=== PATIENT | male | born 1945 | race Caucasian/White ===

== ENCOUNTER 2020-07-29 11:39 | Observation (INO) | payer OTHER ==
--- OUTSIDE RECORDS SUMMARY | 2020-07-29 12:02 | XMS REPORT | Clinical Summary ---
:1945 Author Organization [facility] Address [address] [place] [address] Care Team Providers Name Role Phone Arnol Mtz MD Primary Care Provider Allergies No Known Active Allergies Medications Medication Sig Dispensed Refills Start Date End Date Status metoprolol tartrate Take 50 mg by 0 Active (LOPRESSOR) 50 MG mouth 2 (two) tablet times a day. alfuzosin (UROXATRAL) Take 10 mg by 0 Active 10 mg 24 hr tablet mouth daily. finasteride (PROSCAR) Take 5 mg by mouth 0 Active 5 mg tablet daily. rosuvastatin (CRESTOR) Take 10 mg by 0 Active 10 MG tablet mouth daily. amLODIPine (NORVASC) Take 10 mg by 0 Active 10 MG tablet mouth daily. lidocaine 5 % cream Apply 5 % 0 Active topically daily. M-W-F Active Problems Problem Noted Date ESRD (end stage renal disease) on dialysis 11/28/2016 Hyperlipidemia 11/28/2016 Hypertension associated with chronic kidney disease du e to type 2 diabetes 08/10/2016 mellitus Surgical History Surgery Date Site/Laterality Comments DIALYSIS FISTULA CREATION RENAL BIOPSY COLON SURGERY 10/14/2009 - partial removal colon 10/13/2010 APPENDECTOMY 10/14/2009 - 10/13/2010 CHOLECYSTECTOMY 10/14/2009 - 10/13/2010 TRANSURETHRAL RESECTION OF 10/14/2013 - PROSTATE 10/13/2014 Medical History Medical History Date Comments ESRD (end stage renal disease) on dialysis (HCC) Hypertension Type 2 diabetes mellitus (HCC) Hyperlipidemia Prostate CA (HCC) 2012 Founds cancer cell, Psa low Social History Tobacco Use Types Packs/Day Years Used Date Never Smoker Sex Assigned at Date Recorded Not on file Last Filed Vital Signs Not on file Plan of Treatment Health Maintenance Due Date Last Done Comments COLONOSCOPY SCREENING 1994 SHINGLES VACCINES (#1) 1994 65+ PNEUMOCOCCAL VACCINE (1 of 1 - PPSV23) 2009 INFLUENZA VACCINE 05/14/2020 Results Not on fileafter 07/29/2019 Insurance Payer Benefit Plan / Subscriber ID Effective Dates Phone Addre ss Type Group HUMANA MEDICARE HUMANA MEDICARE [id number] 2014-Present PPO PPO/PFFS/ERS MCR NavidpedritoJohn Paul franks Transplant Self 1945 [address]) [address] [place], [place] [id number] Advance Directives For more information, please contact: [phone] Type Date Recorded Patient Field Reporter Explanati on Advance Directives, Living Will and 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
--- OUTSIDE RECORDS SUMMARY | 2020-07-29 12:02 | XMS REPORT | Clinical Summary ---
:1945 Author Organization [facility] Address [address] [place] [address] Care Team Providers Name Role Phone Pcp, No Primary Care Provider Unavailable Allergies No Known Allergies Medications Medication Sig Dispensed Refills Start Date End Date Status acetaminophen-codeine 0 11/26/2018 Active (TYLENOL #3) 300-30 mg per tablet amLODIPine (NORVASC) 10 0 12/15/2018 Active MG tablet gabapentin (NEURONTIN) 0 11/26/2018 Active 100 MG capsule metoprolol (LOPRESSOR) 2 (two) times 0 11/13/2018 Active 50 MG tablet daily. rosuvastatin (CRESTOR) 0 11/26/2018 Active 20 MG tablet tamsulosin (FLOMAX) 0.4 0 11/26/2018 Active mg Cap 24 hr capsule warfarin (COUMADIN) 2 MG 0 11/27/2018 Active tablet aspirin 81 MG EC tablet Take 81 mg by 0 Active mouth daily. Active Problems Not on file Social History Tobacco Use Types Packs/Day Years Used Date Never Smoker Smokeless Tobacco: Never Used Alcohol Use Drinks/Week oz/Week Comments No Alcohol Habits Answer Date Recorded How often do you have a drink containing alcohol? Never 12/24/2018 How many drinks containing alcohol do you have on a typical Not asked day when you are drinking? How often do you have six or more drinks on one occasion? No t asked Sex Assigned at Date Recorded Not on file Last Filed Vital Signs Not on file Plan of Treatment Not on file Results Not on fileafter 07/29/2019 Insurance Payer Benefit Plan / Subscriber ID Effective Phone Address T ype Group Dates HUMANA - HUMANA [id number] 2017-Prese Maps Contracted MEDICARE MGD MEDICARE ADV nt CARE
--- OUTSIDE RECORDS SUMMARY | 2020-07-29 12:07 | XMS REPORT | Continuity of Care Document ---
:1945 Author Organization [employer] Care Team Providers Name Role Phone [employer] Unavailable Un available Problems Problem Status Onset Classification Date Comments Sourc e Date Reported Urinary tract Sug ar infection, site not 019 9 [place] specified Retention of urine, [place] unspecified 019 9 [place] URINARY RETENTION Active [place] 019 [place] S/P AVR[place]B [place] [address] [place] [address] Abdominal distension The (gaseous) 019 9 [place] R14.[address] Nonrheumatic aortic [facility] (valve) stenosis 018 9 [facility] NONRHEUMATIC AORTIC Active [facility] (VALVE) STENOSIS 018 [facility] Age-related nuclear [facility] cataract, right eye 017 7 Age-related nuclear [facility] cataract, left eye 017 7 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 [facility] OPID [place],[facility] [place] BENIGN PROSTATIC Active [place] HYPERTROPHY WITH 015 Geremias d OBSTRU Benign prostatic Active Problem Data Medical hypertroph with 014 0 migrated Grou p, outflow obstruction from [facility] (disorder) [facility] on 03/12/15. Center,M H OPID [place],[facility] [place] Finding of frequency Active Problem Data Medical of urination (finding) 014 0 migrate d Group, from [facility] on 03/12/15. Center,M H OPID [place],[facility] [place], [place] Glycosuria (finding) Active Problem Data Medical 014 0 migrated Group, from [facility] on 03/12/15. Center,M H OPID [place],[facility] [place], [place] Microscopic hematuria Active Problem Data Medical (disorder) 014 0 migrated Group, from [facility] on 03/12/15. Center,M H OPID [place],[facility] [place] Metabolic syndrome X Active Problem Data Medical (disorder) 013 0 migrated Group, from [facility] on 03/12/15. Center,M H OPID [place],[facility] [place] Mixed hyperlipidemia Active Problem Data Medical (disorder) 013 0 migrated Group, from [facility] on 03/12/15. Center,M H OPID [place],[facility] [place] hyperlipidemia(Confirm Active Problem Sugar ed) 010 5 Land hypertension(Confirmed Active Problem Sugar ) 010 5 [place] Hypertension Active Problem Prime[facility] re 4 Med Group Hyperlipemia Active Problem [facility] 4 Med Group Chronic kidney Active Problem [facility] disease, stage III 4 M ed Group Acute ethmoidal Active Diagnosis [facility] sinusitis 3 Med Group Backache (finding) Resolved Problem M Medical 0 Group,[facility], OPID [place],[facility] [place] Benign prostatic Active Problem Medical hyperplasia (disorder) 0 Group,[facility], OPID [place],[facility] [place] Chronic back pain Active Problem Medical (disorder) 0 Group,[facility], OPID [place],[facility] [place] Chronic renal Active Problem Med ical impairment (disorder) 0 Group,[facility], OPID [place],[facility] [place], [place] Chronic kidney disease Active Problem Data Medical stage 3 (disorder) 0 migrated G rourolan, from [facility] on 03/12/15. Center,M H OPID [place],[facility] [place], [place] Diabetes mellitus type Active Problem Medical 2 (disorder) 0 Group,M [facility], OPID [place],[facility] [place], [place] Essential hypertension Active Problem Data Medical (disorder) 0 migrated Group, from [facility] on 03/12/15. Center,M H OPID [place],[facility] [place], [place] Hypertensive disorder, Active Problem Medical systemic arterial 0 Gr oup,[facility] (disorder) ,[facility] [place] [facility], OPID [place],[facility] [place], [place] Hypogonadism Active Problem Data Medi judith (disorder) 0 migrated Group, from [facility] on 03/12/15. Center,M H OPID [place],[facility] [place], [place] Hypokalemia (disorder) Active Problem Medical 0 Group,[facility], OPID [place],[facility] [place] Obesity (disorder) Active Problem Data [facility] Medical 0 migrated Group, from [facility] on 03/12/15. Center,M H OPID [place],[facility] [place], [place] Pain (finding) Active Problem [facility] dical 0 Group,[facility], OPID [place],[facility] [place], [place] Renal failure syndrome Active Problem Medical (disorder) 0 Group,[facility], OPID [place],[facility] [place], [place] Seasonal allergic Active Problem Medical rhinitis (disorder) 0 Group,[facility] [place] [facility], OPID [place],[facility] [place], [place] Swelling of lower limb Resolved Problem Medical (finding) 0 Group,[facility], OPID [place],[facility] [place] Neoplasm of colon Active Problem Medical (disorder) 0 Group,[facility], OPID [place],[facility] [place] Alteration in patterns Active Problem increas ed Medical of urinary elimination 0 frequen cy Group, (finding) [facility], OPID [place],[facility] [place] Diabetes mellitus Resolved Problem Medical (disorder) 0 Group,[facility] I ,[facility] [place], [place] End stage renal Resolved Problem [facility] edical disease (disorder) 0 G roup,[facility] ,[facility] [place] Cholesterol Active Problem OPID (substance) 5 [place], [place] Retention of urine Active Problem [facility] Medical (disorder) 0 Group, [place] Urinary tract Active Problem Med ical infectious disease 0 G roup, (disorder) Sugar Geremias d Chest pain, [facility] unspecified Medical Center 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 aorta Medical Center Other nonspecific [facility] abnormal finding of [address] [place] [address] lung field Center Umbilical hernia [facility] without obstruction or [address] [place] [address] gangrene Center Bilateral inguinal 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 [address] [place] [address] Pupillary abnormality, [facility] left eye 7 Hypercholesterolemia Active Problem [facility] (disorder) 7 Hyperlipidemia Active Problem [facility] (disorder) 7 BPH W URINARY OBS/LUTS Active [place] Medications Medication Details Route Status Patient Ordering Order Source Instructions Provider Date warfarin 5 mg 5 mg = 1 tab, Active M edical oral tablet PO, Daily, # 30 2019 Grou p tab, 0 Refill(s) Cephalexin 250 250 mg = 1 cap, Active M H Medical MG Oral Capsule PO, BID, start 2019 [place] r[place] [Keflex] the day before scope procedure, X 3 day, # 6 cap, 0 Refill(s), Pharmacy: [facility]/pharmacy #[id number] Ciprofloxacin 500 mg = 1 tab, Active [place] 500 MG Oral PO, Q24H, X 7 2019 [place] Tablet [Cipro] day, # 7 tab, 0 Refill(s) Warfarin Notes: Nurse to Inactive [place] as ensure 2019 Medical documentation Center of patient education per anticoagulation policy. Avoid large intake of vitamin-K containing foods diet. (Same As: Coumadin) WASTE: F/P - P Waste Black; E - P Waste Black DME Prescription See Active Lorna madrid Instructions, 2019 Medical MISC, ONCE, Center Cardiac Rehab Phase II Dx: S/p AVR, # 1 ea, 0 Refill(s) warfarin 2.5 mg 2.5 mg = 1 tab, Active [place] oral tablet PO, Q5PM, # 30 2019 Medic al tab, 0 Center Refill(s) Rosuvastatin 20 mg = 1 tab, Active [place] calcium 20 MG PO, Bedtime, # 2019 Med ical Oral Tablet 30 tab, 0 Center [Crestor] Refill(s) Acetaminophen 1 - 2 tab, PO, Active [place] 300 MG / Codeine Q6H, PRN Pain, 2019 Medical Phosphate 30 MG X 7 day, # 50 Ce nter Oral Tablet tab, 0 Refill(s) tamsulosin 0.4 0.4 mg = 1 cap, Active M H [place] mg oral capsule PO, Daily, # 30 2019 Medical cap, 0 Center Refill(s) atorvastatin 40 40 mg = 1 tab, Inactive [place] mg oral tablet PO, Bedtime, # 2019 Me dical 30 tab, 0 Center Refill(s) Aspirin 81 MG 81 mg = 1 tab, Active [place] Chewable Tablet PO, Daily, # 30 2019 Medical tab, 0 Center Refill(s) metoprolol 50 mg 50 mg = 1 tab, Active [place] oral tablet, PO, Q12H, # 60 2019 Medi judiht extended release tab, 0 Center Refill(s) gabapentin 100 100 mg = 1 cap, Active H [place] MG Oral Capsule PO, Q12H, # 60 2019 M edical cap, 0 Center Refill(s) gabapentin 300 300 mg, 1 cap, Inactive H [place] MG Oral Capsule Route: PO, Drug 2019 Medical form: CAP, Center Daily, Dosing Weight 116.534, kg, Start date: 11/25/18 9:00:00 SPEECH AND LANGUAGE TUTOR, Duration: 30 day, Stop date: 12/24/18 9:00:00 CDT Colchicine Notes: 0.3 mg = Inactive [place] 10/15 x 0.6 mg [facility] tab Center Warfarin Notes: Nurse to Inactive [place] as ensure 2019 Medical documentation Center of patient education per anticoagulation policy. Avoid large intake of vitamin-K containing foods diet. (Same As: Coumadin) WASTE: F/P - P Waste Black; E - P Waste Black DME Addition #1 See Active [place] Instructions, 2019 [facility] INR Center Therapeutic level: INR 2-3, # 1 ea, 0 Refill(s) metoprolol Notes: (Same No Longer [place] as extended release as: Toprol XL) Active 2019 Medical May split tab, Center but do not crush. tramadol Notes: Not to [place] Longer [place] hydrochloride 50 exceed Active 2019 Medical MG Oral Tablet 400mg/day. Center (Same As: Ultra) Warfarin Notes: Nurse to Inactive [place] as ensure 2019 Medical documentation Center of patient education per anticoagulation policy. Avoid large intake of vitamin-K containing foods diet. WASTE: F/P - P Waste Black; E - P Waste Black (Same As: Coumadin) Warfarin Notes: Nurse to Inactive [place] as ensure 2019 Medical documentation Center of patient education per anticoagulation policy. Avoid large intake of vitamin-K containing foods diet. (Same As: Coumadin) WASTE: F/P - P Waste Black; E - P Waste Black Warfarin Notes: Nurse to Inactive [place] as ensure 2019 Medical documentation Center of patient education per anticoagulation policy. Avoid large intake of vitamin-K containing foods diet. (Same As: Coumadin) WASTE: F/P - P Waste Black; E - P Waste Black colchicine 0.6 0.6 mg, 1 tab, No Longer [place] mg oral tablet Route: PO, Drug Active 2019 M edical form: TAB, BID, Center Dosing Weight 116.534, kg, Start date: 11/21/18 17:00:00 SPEECH AND LANGUAGE TUTOR, Duration: 30 day, Stop date: 12/21/18 9:00:00 CDT Acetaminophen Notes: Do not No Longer [place] 300 MG / Codeine exceed 4gm/day Active 2019 Medical Phosphate 30 MG of Center Oral Tablet acetaminophen. [Tylenol with (Same as: Codeine #3] Tylenol with Codeine # 3) Warfarin Notes: Nurse to Inactive [place] as ensure 2019 Medical documentation Center of patient education per anticoagulation policy. Avoid large intake of vitamin-K containing foods diet. (Same As: Coumadin) WASTE: F/P - P Waste Black; E - P Waste Black Bisacodyl Notes: (Same No Longer [place] As: Dulcolax, Active 2019 Medical Bisco-Lax) Center metoprolol Notes: (Same No Longer [place] as tartrate as: Lopressor) Active 2019 Medical Center AMIODarone 900 2 mg/ml. Use Inactive [place] mg in D5W 500 ml Glass Bottle or 2019 Medical IV 900 mg + Non PVC Bag Center Dextrose 5% in "Use 0.22 Water IV 482 mL micron in-line filter" MEDICATION WASTE Product Size: 900 mg Product Wasted: ___ mg Amiodarone 2 mg/ml. Inactive [place] "Recommendation 2019 Medical : Use an Center in-line filter during administration for continuous infusions to reduce the incidence of phlebitis" (Same as Codarone) MEDICATION WASTE Product Size: 150 mg Product Wasted: ___ mg Metoprolol Notes: (Same No Longer [place] as as: Lopressor) Active 2019 Medical Push over 2 Center minutes Lidocaine Notes: (Same No Longer [place] Hydrochloride 10 as: Xylocaine) Active 2019 Medical MG/ML Injectable Center Solution alfuzosin 10 mg, Route: Inactive [place] extended release PO, Daily, 2019 [facility] Dosing Weight Center 116.534, kg, Priority: NOW, Start date: 11/19/18 10:31:00 SPEECH AND LANGUAGE TUTOR, Duration: 30 day, Stop date: 12/19/18 9:00:00 SPEECH AND LANGUAGE TUTOR Fentanyl Notes: (Same Inactive Bassem as: Sublimaze) 2019 Medical Preservative Center free. Finasteride 5 mg, Route: No Longer [place] PO, Drug form: Active 2019 Medical TAB, Daily, Center Dosing Weight 116.534, kg, Start date: 11/19/18 9:00:00 SPEECH AND LANGUAGE TUTOR, Duration: 30 day, Stop date: 12/18/18 9:00:00 SPEECH AND LANGUAGE TUTOR Glucagon 1 mg, Route: No Longer Bassem IM, Drug form: Active 2019 Medical PDR/INJ, PRN, Center Dosing Weight 116.534, kg, PRN Blood Glucose Results, Start date: 11/19/18 7:58:00 SPEECH AND LANGUAGE TUTOR, Duration: 30 day, Stop date: 12/19/18 7:57:00 SPEECH AND LANGUAGE TUTOR Dextrose 50% 25 gm, 50 mL, No Longer Bassem Syringe Route: IVP, Active 2019 Medical Drug Form: INJ, Center Dosing Weight 116.534, kg, PRN, PRN Blood Glucose Results, Start date: 11/19/18 7:58:00 SPEECH AND LANGUAGE TUTOR, Duration: 30 day, Stop date: 12/19/18 7:57:00 SPEECH AND LANGUAGE TUTOR Insulin Lispro Notes: (Same No Longer Bassem as: Humalog ) Active 2019 Medical Roll in palms Center of hands gently; Do not shake `vigorously. "Single Patient Use Only " WASTE: F/P - Black; E - Municipal Trash Bin Stable for 28 days at room temperature. Expires in days from D ate heparin additive Notes: Total No Longer Bassem 25,000 unit [14 Concentration = Active 2019 Medical unit/kg/hr] + 50 unit/ ml Center Premix Diluent Total volume = Sodium Chloride 500 ml Send Med 0.45% 500 mL Request 2 hours prior to next bag Colchicine 0.6 0.6 mg, 1 tab, No Longer [place] MG Oral Tablet Route: PO, Drug Active 2018 [facility] form: TAB, BID, Center Dosing Weight 116.534, kg, Start date: 11/18/18 21:00:00 SPEECH AND LANGUAGE TUTOR, Duration: 30 day, Stop date: 12/18/18 17:00:00 SPEECH AND LANGUAGE TUTOR sennosides, [facility] Notes: (Same No Longer H [place] 8.6 MG Oral as: Senokot) Active 2019 Medical Tablet Center atorvastatin Notes: (Same No Longer [place] as: Lipitor) Active 2019 [facility] heparin sodium, Notes: porcine No Longer [place] porcine 2500 heparin Active 2019 [facility] UNT/ML Center Injectable Solution Cefazolin Notes: (Same as Inactive [place] Ancef) 2019 [facility] Simethicone Notes: (Same No Longer [place] as: Mylicon) Active 2019 [facility] Acetaminophen Notes: Max No Longer [place] acetaminophen Active 2019 Medical 4000 mg/day (4 Center gm/day). (Same as: Tylenol Extra Strength) Flomax Notes: (Same No Longer [place] As: Flomax) Active 2019 Medical "Do Not Crush" [facility] Finasteride Notes: (Same No Longer [place] as: Proscar) Active 2019 Medical "Do Not Crush" Center Women of childbearing age should not touch or handle broken tablets Oxycodone Notes: (Same No Longer [place] Hydrochloride 5 as: Roxicodone) Active 2019 Medical MG Oral Tablet Center gabapentin 100 Notes: (Same No Longer [place] MG Oral Capsule as: Neurontin) Active 2019 [facility] pantoprazole Notes: Tablet Inactive [place] should not be 2019 Medical chewed or Center crushed. (Same as: Protonix) Docusate Notes: (Same No Longer Bassem as: Colace) (Do Active 2019 Medical Not Crush) Center Miralax Notes: Dissolve No Longer [place] as in 8 oz of Active 2019 Medical water or juice. Center (Same as: Miralax) Mupirocin 0.02 1 appl, Route: No Longer [place] MG/MG Topical NASAL, BID, Active 2019 Medica l Ointment Drug form: [facility] OINT, Start date: 11/18/18 9:00:00 SPEECH AND LANGUAGE TUTOR, Duration: 5 day, Stop date: 11/22/18 17:00:00 SPEECH AND LANGUAGE TUTOR Aspirin 81 MG Notes: Do not No Longer [facility] Chewable Tablet crush or chew. Active 2018 edical (Same As: [facility] Ecotrin) tramadol Notes: [facility] 50 exceed Active 2019 Medical MG Oral Tablet 400mg/day. Center (Same As: [facility]) Oxycodone Notes: (Same Inactive [facility] Hydrochloride 5 as: Roxicodone) 2019 Medical MG Oral Tablet [facility] Notes: Infuse Inactive [facility] over 15 minutes 2019 Medical Do not exceed [facility] 4gm/day of acetaminophen MEDICATION WASTE Product Size: 1000 mg Product Wasted: ___ mg ocular lubricant Notes: (Same Inactive 11/18[facility] as: Lacri-Lube, 2019 [facility] Puralube, [facility] Duratears Naturale, Artificial Tears, and Tears Again ) [facility] or = 50 kg, Inactive Bassem Start date: 2018 Medical 11/18/18 [facility] 0:00:00 SPEECH AND LANGUAGE TUTOR, Duration: 1 day, Stop date: 11/18/18 18:00:00 SPEECH AND LANGUAGE TUTOR albumin human 5% Notes: LOT#: No Longer Bassem intravenous Active 2019 Medica l solution Mfg: Center WASTE: F/P - Red; E -Red (Same as: Albuminar) "blood product derivative" Sodium Chloride 500 mL, 500 Inactive Bassem 0.9% (Bolus) IV ml/hr, Infuse 2019 N[place] dical Over: 1 hr, [facility] Route: IV, ONCE, Priority: STAT, Dosing Weight 116.534 kg, Start date: 11/17/18 23:23:00 SPEECH AND LANGUAGE TUTOR, Stop date: 11/17/18 23:23:00 SPEECH AND LANGUAGE TUTOR chlorhexidine Notes: (Same No Longer Bassem gluconate 1.2 As: Peridex) Active 2019 Medic al MG/ML [place] [facility] Insulin regular Notes: Final No Longer [place] 100 unit + Concentration Active 2019 [facility] 1unit/1ml Center WASTE: F/P - Black; E - Municipal Trash Bin Dextrose 50% 12.5 gm, 25 mL, No Longer [place] Syringe Route: IVP, Active 2019 Medical Drug Form: INJ, Center Dosing Weight 116.534, kg, PRN, PRN Blood Glucose Results, Start date: 11/17/18 19:36:00 SPEECH AND LANGUAGE TUTOR, Duration: 30 day, Stop date: 12/17/18 19:35:00 SPEECH AND LANGUAGE TUTOR Ofirmev Notes: Infuse Inactive [facility] over 15 minutes 2019 Medical Do not exceed Center 4gm/day of acetaminophen MEDICATION WASTE Product Size: 1000 mg Product Wasted: ___ mg chlorhexidine Notes: (Same No Longer [place] gluconate 1.2 As: Peridex) Active 2019 Medic al MG/ML [place] Center chlorhexidine Notes: (Same No Longer [facility] gluconate 1.2 As: Peridex) Active 2019 Medic al MG/ML [place] Center Fentanyl Notes: (Same No Longer [facility] as: Sublimaze) Active 2019 [facility] Preservative Center free. Albuterol 0.833 Notes: (Same No Longer [place] MG/ML / as: Duoneb) Active 2019 [facility] Ipratropium Center [place] 0.167 MG/ML Inhalant Solution [DuoNeb] Magnesium Oxide 800 mg, Route: Inactive [facility] PO, PRN, Dosing 2019 Medical Weight 116.534, Center kg, PRN Abnormal Lab Result, FOR ICU USE ONLY, Start date: 11/17/18 18:26:00 SPEECH AND LANGUAGE TUTOR, Duration: 30 day, Stop date: 12/17/18 18:25:00 SPEECH AND LANGUAGE TUTOR Calcium 1 gm, Route: Inactive [facility] Gluconate IVPB, PRN, 2019 Medical Dosing Weight Center 116.534, kg, PRN Abnormal Lab Result, Start date: 11/17/18 18:26:00 SPEECH AND LANGUAGE TUTOR, Duration: 30 day, Stop date: 12/17/18 18:25:00 SPEECH AND LANGUAGE TUTOR, FOR ICU USE ONLY Calcium 500 mg, Route: Inactive [facility] Carbonate 500 MG PO, PRN, Dosing 2019 Medical Chewable Tablet Weight 116.534, Center kg, PRN Abnormal Lab Result, FOR ICU USE ONLY, Start date: 11/17/18 18:26:00 SPEECH AND LANGUAGE TUTOR, Duration: 30 day, Stop date: 12/17/18 18:25:00 SPEECH AND LANGUAGE TUTOR potassium 2 pkt, Route: Inactive 11/18[facility] [place] phosphate-sodium PO, Dosing 2019 [facility] judith phosphate 250 Weight 116.534, Ce nter mg-280 mg-160 mg kg, PRN, PRN oral powder for Abnormal Lab reconstitution Result, FOR ICU USE ONLY, Start date: 11/17/18 18:26:00 SPEECH AND LANGUAGE TUTOR, Duration: 30 day, Stop date: 12/17/18 18:25:00 SPEECH AND LANGUAGE TUTOR Magnesium 2 gm, Route: Inactive 11/18[facility] Bassem Sulfate IVPB, PRN, 2019 Medical Dosing Weight Center 116.534, kg, PRN Abnormal Lab Result, Start date: 11/17/18 18:26:00 SPEECH AND LANGUAGE TUTOR, Duration: 30 day, Stop date: 12/17/18 18:25:00 SPEECH AND LANGUAGE TUTOR, FOR ICU USE ONLY potassium 15 mmol, Route: Inactive 11/18[facility] [place] phosphate IVPB, PRN, 2019 Medical Dosing Weight Center 116.534, kg, PRN Abnormal Lab Result, Start date: 11/17/18 18:26:00 SPEECH AND LANGUAGE TUTOR, Duration: 30 day, Stop date: 12/17/18 18:25:00 SPEECH AND LANGUAGE TUTOR, FOR ICU USE ONLY sodium phosphate 15 mmol, Route: Inactive Bassem IVPB, PRN, 2019 Medical Dosing Weight Center 116.534, kg, PRN Abnormal Lab Result, Start date: 11/17/18 18:26:00 SPEECH AND LANGUAGE TUTOR, Duration: 30 day, Stop date: 12/17/18 18:25:00 SPEECH AND LANGUAGE TUTOR, FOR ICU USE ONLY Potassium 20 mEq, Route: Inactive [place] as Chloride PO, Drug form: 2019 Medical ERTAB, PRN, Center Dosing Weight 116.534, kg, PRN Abnormal Lab Result, Start date: 11/17/18 18:26:00 SPEECH AND LANGUAGE TUTOR, Duration: 30 day, Stop date: 12/17/18 18:25:00 SPEECH AND LANGUAGE TUTOR, FOR ICU USE ONLY Stimate (ANES) 4 Route: IV, Drug Inactive Bassem microgram Form: INJ, 2019 Medical Start date: Center 11/17/18 17:23:00 SPEECH AND LANGUAGE TUTOR, Stop date: 11/17/18 18:23:00 SPEECH AND LANGUAGE TUTOR protamine (ANES) Route: IV, Drug Inactive [place] 10 mg form: INJ, 2018 Medical Start date: [facility] 11/17/18 17:06:00 SPEECH AND LANGUAGE TUTOR, Stop date: 11/17/18 18:06:00 SPEECH AND LANGUAGE TUTOR calcium chloride Route: IV, Drug Inactive [place] (ANES) form: INJ, 2018 Medical ONCE, Stop Center date: 11/17/18 17:03:00 SPEECH AND LANGUAGE TUTOR heparin (ANES) Route: IV, Drug Inactive Bassem form: INJ, 2018 Medical ONCE, Stop Center date: 11/17/18 15:08:00 SPEECH AND LANGUAGE TUTOR lidocaine (ANES) Route: IV, Drug Inactive Bassem form: INJ, 2018 Medical ONCE, Stop Center date: 11/17/18 15:03:00 SPEECH AND LANGUAGE TUTOR propofol (ANES) Route: IV, Drug Inactive Bassem form: INJ, 2018 Medical ONCE, Stop Center date: 11/17/18 14:44:00 SPEECH AND LANGUAGE TUTOR fentaNYL (ANES) Route: IV, Drug Inactive Bassem form: INJ, 2018 Medical ONCE, Stop Center date: 11/17/18 14:44:00 SPEECH AND LANGUAGE TUTOR rocuronium Route: IV, Drug Inactive [place] (ANES) form: INJ, 2018 Medical ONCE, Stop Center date: 11/17/18 14:44:00 SPEECH AND LANGUAGE TUTOR midazolam (ANES) Route: IV, Drug Inactive Bassem form: SOLN, 2018 Medical ONCE, Stop Center date: 11/17/18 14:44:00 SPEECH AND LANGUAGE TUTOR ceFAZolin (ANES) Route: IV, Drug Inactive Bassem form: INJ, 2018 Medical ONCE, Stop Center date: 11/17/18 14:38:00 SPEECH AND LANGUAGE TUTOR norepinephrine Route: IV, Drug Inactive [place] (ANES) 10 form: INJ, 2018 Medical microgram Start date: [facility] 11/17/18 14:35:00 SPEECH AND LANGUAGE TUTOR, Stop date: 11/17/18 15:35:00 SPEECH AND LANGUAGE TUTOR vancomycin Route: IV, Drug Inactive [place] (ANES) 1000 mg form: INJ, 2019 Medica l Start date: [facility] 11/17/18 14:05:00 SPEECH AND LANGUAGE TUTOR, Stop date: 11/17/18 15:05:00 SPEECH AND LANGUAGE TUTOR tranexamic acid Route: IV, Drug Inactive Bassem (ANES) 10 mg form: INJ, 2019 Medical Start date: [facility] 11/17/18 14:00:00 SPEECH AND LANGUAGE TUTOR, Stop date: 11/17/18 15:00:00 SPEECH AND LANGUAGE TUTOR Exparel Notes: (Same No Longer Bassem as: Exparel) Active 2019 Medical NOT FOR IV Center use Postoperative analgesia: Infiltration (local): Dose is based on surgical site and volume required to cover the area (in general, the maximum total dose is 266 mg). Bunionectomy: 7 mL into the tissues surrounding the osteotomy and 1 mL into the subcutaneous tissue of the surgical site (total dose = 8 mL [106 mg]) Hemorrhoidectom y: 30 mL (20 mL vial diluted with 10 mL NS) divided and administered as 6 injections of 5 mL each (total dose = 30 mL [266 mg]) Lactated Ringers Route: IV, Inactive Bassem Injection IV Total Volume: 2019 Medic al (ANES) 500 mL 500, Start Center date: 11/17/18 13:40:00 SPEECH AND LANGUAGE TUTOR, Stop date: 11/17/18 14:40:00 SPEECH AND LANGUAGE TUTOR Isolyte S PH 7.4 Route: IV, Inactive Bassem (ANES) 1000 mL Total Volume: 2019 Med ical 1,000, Start Center date: 11/17/18 13:16:00 SPEECH AND LANGUAGE TUTOR, Stop date: 11/17/18 14:16:00 SPEECH AND LANGUAGE TUTOR Amylases 71740 1 cap, PO, TID, No Longer Bassem UNT / 0 Refill(s) Active 2019 Medical Endopeptidases Center 54699 UNT / Lipase 68688 UNT Delayed Release Oral Capsule [Zenpep] rifaximin 550 MG 550 mg = 1 tab, No Longer 11/14 Bassem Oral Tablet PO, BID, 0 Active 2019 Medical [XIFAXAN] Refill(s) Center Lidocaine 25 1 appl, TOP, Active Uriah as MG/ML / ONCE, # 30 gm, 2019 Medical Prilocaine 25 0 Refill(s) Center MG/ML Topical Cream Levofloxacin 250 250 mg = 1 tab, Inactive Medical MG Oral Tablet PO, Q48H, # 3 2019 [place] up [Levaquin] tab, 0 Refill(s), Pharmacy: [facility] sucroferric 500 mg = 1 tab, No Longer [place] oxyhydroxide 500 PO, 0 Refill(s) Active 2018 Medical MG Chewable Center Tablet [Velphoro] gabapentin 300 300 mg = 1 cap, No Longer [place] MG Oral Capsule PO, Daily, # 90 Active 2018 Medical cap, 0 Center Refill(s) Misc Medication 200 mL, Inactive [facility] Soln-IV, IV, 2016 Once, first dose 07/29/17 13:03:00 CDT, stop date 07/29/17 13:03:00 CDT fentaNYL 50 mcg = 1 mL, Inactive [facility] Injection, IV, 2016 Once, first dose 07/29/17 12:55:00 CDT, stop date 07/29/17 12:55:00 CDT midazolam 1 mg = 1 mL, Inactive [facility] Injection, IV, 2016 Once, first dose 07/29/17 12:55:00 CDT, stop date 07/29/17 12:55:00 CDT fentaNYL 50 mcg = 1 mL, Inactive [facility] Injection, IV, 2016 Once, first dose 07/29/17 12:44:00 CDT, stop date 07/29/17 12:44:00 CDT midazolam 1 mg = 1 mL, Inactive [facility] Injection, IV, 2016 Once, first dose 07/29/17 12:43:00 CDT, stop date 07/29/17 12:43:00 CDT ondansetron 4 mg = 2 mL, Inactive [facility] Injection, IV, 2016 Once, first dose 07/29/17 12:43:00 CDT, stop date 07/29/17 12:43:00 CDT Ethyl Chloride 1 1 sprays, Inactive [facility] ML/ML Topical [place], TOP, 2017 [place] Once, first dose 07/29/17 12:00:00 CDT, stop date 07/29/17 12:00:00 CDT Povidone-Iodine 1 drops, Soln, Inactive 07/29/ [facility] 50 MG/ML Eye-Operative, 2016 Ophthalmic Once, first Solution dose 07/29/17 [Betadine] 12:00:00 CDT, stop date 07/29/17 12:00:00 CDT LR 500 mL 500 mL, IV, 100 Inactive 07/29/ [facility] mL/hr, start 201607/29/17 11:55:00 CDT, Adult Eye Procedures or Pain Phenylephrine 1 drops, Soln, Inactive 07/29/ [facility] Hydrochloride 25 Eye-Operative, 2017 MG/ML Ophthalmic q5min, order Solution duration: 3 doses, first dose 07/29/17 11:55:00 CDT, stop date 07/29/17 12:09:00 CDT Tetracaine 1 drops, Soln, Inactive 07/29/ [facility] hydrochloride 5 Eye-Operative, 2017 MG/ML Ophthalmic q5min, order Solution duration: 3 doses, first dose 07/29/17 11:55:00 CDT, stop date 07/29/17 12:09:00 CDT moxifloxacin 5 1 drops, Soln, Inactive 07/29/ [facility] MG/ML Ophthalmic Eye-Operative, 2017 Solution q5min, order duration: 3 doses, first dose 07/29/17 11:55:00 CDT, stop date 07/29/17 12:09:00 CDT Tropicamide 10 1 drops, Soln, Inactive 07/29/ [facility] SPI MG/ML Ophthalmic Eye-Operative, 2017 Solution q5min, order duration: 3 doses, first dose 07/29/17 11:55:00 CDT, stop date 07/29/17 12:09:00 CDT NS 500 mL 500 mL, IV, 50 Inactive 07/29/ [facility] mL/hr, start 201607/29/17 11:54:00 CDT, Renal Disease Misc Medication 200 mL, Inactive 07/15/ [facility] Soln-IV, IV, 2016 Once, first dose 07/15/17 11:27:00 CDT, stop date 07/15/17 11:27:00 CDT midazolam 1 mg = 1 mL, Inactive 07/15/ [facility] Injection, IV, 2016 Once, first dose 07/15/17 11:06:00 CDT, stop date 07/15/17 11:06:00 CDT fentaNYL 50 mcg = 1 mL, Inactive 07/15/ [facility] Injection, IV, 2016 Once, first dose 07/15/17 11:06:00 CDT, stop date 07/15/17 11:06:00 CDT midazolam 1 mg = 1 mL, Inactive [facility] Injection, IV, 2016 Once, first dose 07/15/17 11:00:00 CDT, stop date 07/15/17 11:00:00 CDT fentaNYL 50 mcg = 1 mL, Inactive [facility] Injection, IV, 2016 Once, first dose 07/15/17 11:00:00 CDT, stop date 07/15/17 11:00:00 CDT ondansetron 4 mg = 2 mL, Inactive [facility] Injection, IV, 2016 Once, first dose 07/15/17 11:00:00 CDT, stop date 07/15/17 11:00:00 CDT Ethyl Chloride 1 1 sprays, Inactive [facility] ML/ML Topical [place], TOP, 2017 [place] Once, first dose 07/15/17 10:00:00 CDT, stop date 07/15/17 10:00:00 CDT Povidone-Iodine 1 drops, Soln, Inactive [facility] 50 MG/ML Eye-Operative, 2016 Ophthalmic Once, first Solution dose 07/15/17 [Betadine] 10:00:00 CDT, stop date 07/15/17 10:00:00 CDT NS 500 mL 500 mL, IV, 75 Inactive [facility] mL/hr, start 201607/15/17 9:58:00 CDT Phenylephrine 1 drops, Soln, Inactive 07/15/ [facility] Hydrochloride 25 Eye-Operative, 2017 MG/ML Ophthalmic q5min, order Solution duration: 3 doses, first dose 07/15/17 9:45:00 CDT, stop date 07/15/17 9:59:00 CDT moxifloxacin 5 1 drops, Soln, Inactive 07/15/ [facility] MG/ML Ophthalmic Eye-Operative, 2016 Solution q5min, order duration: 3 doses, first dose 07/15/17 9:45:00 CDT, stop date 07/15/17 9:59:00 CDT Tropicamide 10 1 drops, Soln, Inactive 07/15/ U SPI MG/ML Ophthalmic Eye-Operative, 2017 Solution q5min, order duration: 3 doses, first dose 07/15/17 9:45:00 CDT, stop date 07/15/17 9:59:00 CDT Tetracaine 1 drops, Soln, Inactive 07/15/ [facility] hydrochloride 5 Eye-Operative, 2017 MG/ML Ophthalmic q5min, order Solution duration: 3 doses, first dose 07/15/17 9:45:00 CDT, stop date 07/15/17 9:59:00 CDT LR 500 mL 500 mL, IV, 100 Inactive 07/15/ [facility] mL/hr, start 2017 date 07/15/17 9:44:00 CDT, Adult Eye Procedures or Pain Lidocaine joaquin, TOP, TID, Active 07/13/ [facility] Hydrochloride 0 Refill(s) 2017 0.005 MG/MG Topical Gel gabapentin 300 300 mg = 1 Active 07/13/ [facility] MG Oral Capsule caps, Oral, 2017 [Neurontin] Daily, 0 Refill(s) finasteride 5 mg 5 mg = 1 tabs, Active 07/13/ [facility] oral tablet Oral, Daily, 0 2016 Refill(s) Metoprolol 50 mg, Oral, Active 07/13/ [facility] BID, 0 2016 Refill(s) alfuzosin 10 mg 10 mg = 1 tabs, Active 07/13/ [facility] oral tablet, Oral, Daily, 0 2016 extended release Refill(s) Lovastatin 10 mg, Oral, Active 07/13/ [facility] Daily, 0 2016 Refill(s) amLODIPine 10 mg 10 mg = 1 tabs, Active 07/13/ [facility] oral tablet Oral, Daily, 0 2016 Refill(s) Ondansetron Notes: (Same Inactive Sug ar as: Shaila) 2014 MEDICATION WASTE Product Size: 4 mg Product Wasted: ___ mg Calcium Chloride 1,000 mL, Rate: Inactive Sugar 0.0014 MEQ/ML / 125 ml/hr, 2014 Potassium Infuse over: 8 Chloride 0.004 hr, Route: IV, MEQ/ML / Sodium Dosing Weight Chloride 0.103 116.091 kg, MEQ/ML / Sodium Total Volume: Lactate 0.028 1,000, Start MEQ/ML date: 08/29/15 Injectable 16:27:00, Solution Duration: 30 day, Stop date: 09/28/15 16:26:00 Labetalol Notes: (Same Inactive Sugar as: Normodyne, 2014 [facility] Trandate) Push over 2 minutes Give bolus over 2-3 minutes. Acetaminophen Notes: Infuse Inactive Sugar over 15 minutes 2014 Do not exceed 4gm/day of acetaminophen MEDICATION WASTE Product Size: 1000 mg Product Wasted: ___ mg Naloxone Notes: Same as Inactive Suga r Narcan 2014 Flumazenil Notes: (Same Inactive Suga r as: Romazicon) 2014 Fentanyl Notes: (Same Inactive Sugar as: Sublimaze) 2014 [facility] Preservative free. Ketorolac 4 days Inactive Suga r MEDICATION 2014 WASTE Product Size: 30 mg Product Wasted: ___ mg Morphine Notes: (Same Inactive Sugar as:MORPhine 2014 [facility] Sulfate) Hydromorphone Notes: (Same Inactive S ugar as: Dilaudid) 2014 Oxycodone Notes: (Same Inactive Sugar as: Roxicodone) 2014 Ciprofloxacin 250 mg = 1 tab, Active Sugar 250 MG Oral PO, Q24H, # 7 2014 Tablet [Cipro] tab, 0 Refill(s) tramadol 1 - 2 tabs, PO, Active Suga r hydrochloride 50 Q4-6H, PRN Pain 2014 [place] MG Oral Tablet Score 6-10, X 4 [Ultram] day, # 30 tab, 0 Refill(s) Docusate Sodium 100 mg = 1 cap, Active Sugar 100 MG Oral PO, BID, PRN 2014 Capsule [Colace] Constipation, # 60 cap, 0 Refill(s) Acetaminophen Notes: (Same Inactive S ugar 325 MG / as: [place] 2014 Hydrocodone 325/5) Do not Bitartrate 5 MG exceed 4gm/day Oral Tablet of acetaminophen. Morphine Notes: (Same Inactive Sugar as:MORPhine 2014 Sulfate) Calcium Chloride 1,000 mL, Rate: Inactive Sugar 0.0014 MEQ/ML / 25 ml/hr, 2014 Potassium Infuse over: 40 Chloride 0.004 hr, Route: IV, MEQ/ML / Sodium Dosing Weight Chloride 0.103 118.182 kg, MEQ/ML / Sodium Total Volume: Lactate 0.028 1,000, Start MEQ/ML date: 08/29/15 Injectable 12:54:00, Solution Duration: 30 day, Stop date: 09/28/15 12:53:00 BD Normal Saline Notes: (Same Inactive H Sugar Flush as: BD 2014 Posiflush) Cipro Notes: Do not Inactive Sugar refrigerate 2014 168 HR Clonidine 1 patch, TOP, 0 Active Sugar 0.76522 MG/HR Refill(s) 2014 Transdermal Patch Crestor PO, Bedtime, 0 Active Sugar Refill(s) 2014 ALFUZOSIN ER ALFUZOSIN ER No Longer S ugar 10MG TAB 10MG TAB, 1 Active 2014 [facility] tab, Drug form: MISC, Route: PO, QPM, 11/09/14 18:00:00, Duration: 30 day, Stop date: 12/09/14 17:00:00 pneumococcal 0.5 ml, Route: Inactive Sugar capsular IM, ONCALL, 2014 polysaccharide Start date: type 1 vaccine / 11/09/14 pneumococcal 9:52:57, Stop capsular date: 12/09/14 polysaccharide 9:47:57 type 10A vaccine / pneumococcal capsular polysaccharide type 11A vaccine / pneumococcal capsular polysaccharide type 12F vaccine / pneumococcal capsular polysacchar Januvia 100 mg, Route: No Longer Suga r PO, Drug form: Active 2014 [place] TAB, Daily, Dosing Weight 124.318, kg, Start date: 11/09/14 9:00:00, Duration: 30 day, Stop date: 12/08/14 9:00:00 Livalo 4 mg, Route: No Longer Sugar PO, Drug form: Active 2014 [place] TAB, Daily, Dosing Weight 124.318, kg, Start date: 11/09/14 9:00:00, Duration: 30 day, Stop date: 12/08/14 9:00:00 Prinivil Notes: (Same No Longer Sugar as: Prinivil, Active 2014 Zestril) Avodart Notes: No Longer Sugar Non-Formulary Active 2014 Drug. (Same As: Avodart) (Do Not Crush) benazepril 40 mg, Route: No Longer Lanza gar PO, Drug form: Active 2014 TAB, Daily, Dosing Weight 124.318, kg, Start date: 11/09/14 9:00:00, Duration: 30 day, Stop date: 12/08/14 9:00:00 Amlodipine Notes: (Same No Longer Sug ar as: Norvasc) Active 2014 alfuzosin 10 mg, Route: Inactive Suga r PO, Drug form: 2014 ERTAB, Daily, Dosing Weight 124.318, kg, Start date: 11/09/14 9:00:00, Duration: 30 day, Stop date: 12/08/14 9:00:00 Losartan Notes: (Same No Longer Sugar as: Cozaar) Active 2014 metoprolol Notes: (Same No Longer Sug ar extended release as: Toprol XL) Active 2014 May split tab, but do not crush. Ciprofloxacin 250 mg = 1 tab, Active Sugar 250 MG Oral PO, Q12H, # 6 2014 Tablet [Cipro] tab, 0 Refill(s) Phenazopyridine 200 mg = 1 tab, Active Sugar hydrochloride PO, TID, # 9 2014 [place] 200 MG Oral tab, 0 Tablet Refill(s) [Pyridium] Docusate Sodium 100 mg = 1 cap, Active Sugar 100 MG Oral PO, BID, 2014 Capsule [Colace] Constipation, # 20 cap, 0 Refill(s) tramadol 1 - 2 tabs, PO, Active Suga r hydrochloride 50 Q4-6H, as 2014 [place] MG Oral Tablet needed for [Ultram] pain, # 30 tab, 0 Refill(s) Labetalol Notes: (Same No Longer Suga r as: Normodyne, Active 2014 Trandate) Push over 2 minutes Give bolus over 2-3 minutes. Hydralazine Notes: (Same No Longer Lanza gar as: Apresoline) Active 2014 [place] Push over 5 minutes Famotidine Notes: (Same No Longer Sug ar as: Pepcid) Active 2014 [place] Ciprofloxacin 10 Notes: Do not Inactive Sugar MG/ML Injectable refrigerate 2014 Geremias d Solution Pravachol Notes: (Same No Longer Suga r as: Pravachol) Active 2014 [place] Docusate Sodium Notes: (Same No Longer H Sugar 100 MG Oral as: Colace) (Do Active 2014 Capsule Not Crush) Glipizide 5 MG Notes: (Same Inactive Sugar Oral Tablet as: Glucotrol) 2014 30 min before meals. montelukast Notes: (Same No Longer Lanza gar as:Singulair) Active 2014 10 ML Cefazolin Notes: (Same Inactive Sugar 100 MG/ML As: Ancef, 2014 Prefilled Kefzol) Syringe Insulin, Aspart, Notes: Roll in No Longer Sugar Human palms of hands Active 2014 gently; Do not shake vigorously. (Same as: NovoLOG) "single patient use only" Stable for 28 days at room temperature. Expires in days from D ate Dextrose 50% 25 gm, 50 mL, No Longer Sugar Syringe Route: IVP, Active 2014 Drug Form: INJ, Dosing Weight 124.318, kg, PRN, PRN Blood Glucose Results, Start date: 11/08/14 15:45:00, Duration: 30 day, Stop date: 12/08/14 15:44:00 Glucagon 1 mg, Route: No Longer Sugar IM, Drug form: Active 2014 PDR/INJ, PRN, Dosing Weight 124.318, kg, PRN Blood Glucose Results, Start date: 11/08/14 15:45:00, Duration: 30 day, Stop date: 12/08/14 15:44:00 Aspirin 81 MG 81 mg = 1 tab, No Longer H Sugar Enteric Coated PO, Daily, # 0 Active 2014 [place] Tablet tab, 0 Refill(s) amLODIPine 10 mg 10 mg = 1 tab, Active Sugar oral tablet PO, Daily, # 30 2014 [place] tab, 0 Refill(s) montelukast 10 10 mg = 1 tab, Active Sugar mg oral tablet PO, Bedtime, # 2014 [place] 30 tab, 0 Refill(s) benazepril 40 mg 40 mg = 1 tab, Active Sugar oral tablet PO, Daily, # 30 2014 [place] tab, 0 Refill(s) alfuzosin 10 mg 10 mg = 1 tab, Active H Sugar oral tablet, PO, Daily, # 30 2014 Geremias d extended release tab, 0 Refill(s) metoprolol 50 mg = 1 tab, Active Sug ar tartrate 50 mg PO, Daily, # 2014 [place] oral tablet 180 tab, 0 Refill(s) sitagliptin 100 100 mg = 1 tab, Active Sugar MG Oral Tablet PO, Daily, # 30 2014 L and [Januvia] tab, 0 Refill(s) losartan 100 mg 100 mg = 1 tab, Active Sugar oral tablet PO, Daily, # 30 2014 [place] tab, 0 Refill(s) Glipizide 5 MG 5 mg = 1 tab, Active Sugar Oral Tablet PO, BID, # 30 2014 [place] tab, 0 Refill(s) pitavastatin 4 4 mg = 1 tab, Active Sugar MG Oral Tablet PO, Daily, 0 2014 [place] [Livalo] Refill(s) Dutasteride 0.5 0.5 mg = 1 cap, Active Sugar MG Oral Capsule PO, Daily, # 30 2014 [place] [Avodart] cap, 0 Refill(s) Irrigation w/ Notes: For No Longer Lanza gar Normal Saline irrigation Active 2014 only. Flumazenil Notes: (Same Inactive Suga r as: Romazicon) 2014 Naloxone Notes: Same as Inactive Suga r Narcan 2014 Ondansetron Notes: (Same Inactive Sug ar as: Zofran) 2014 Dexamethasone Notes: Inactive Sugar Concentration: 2014 4mg/ml Calcium Chloride 1,000 mL, Rate: Inactive Sugar 0.0014 MEQ/ML / 125 ml/hr, 2014 Potassium Infuse over: 8 Chloride 0.004 hr, Route: IV, MEQ/ML / Sodium Dosing Weight Chloride 0.103 124.318 kg, MEQ/ML / Sodium Total Volume: Lactate 0.028 1,000, Start MEQ/ML date: 11/08/14 Injectable 11:35:00, Solution Duration: 1 doses or times, Stop date: 11/09/14 3:34:00 Morphine Notes: (Same Inactive Sugar as:MORPhine 2014 Sulfate) Meperidine Notes: (Same Inactive Suga r as: Demerol) 2014 "Use Precaution in Elderly, Seizure disorders, and Renal impairment&quot ; Acetaminophen Notes: Infuse Inactive Sugar over 15 minutes 2014 Do not exceed 4gm/day of acetaminophen Metoprolol Notes: (Same Inactive Suga r as: Lopressor) 2014 Push over 2 minutes Oxycodone Notes: (Same Inactive Sugar as: Roxicodone) 2014 Labetalol Notes: (Same Inactive Sugar as: Normodyne, 2014 Trandate) Push over 2 minutes Give bolus over 2-3 minutes. Dulcolax Notes: (Same No Longer Sugar Laxative As: Dulcolax, Active 2014 Correctol) (Do Not Crush) "Do Not Crush" Diphenhydramine 25 mg, 1 tab, No Longer Sugar Route: PO, Drug Active 2014 form: TAB, Bedtime, Dosing Weight 124.318, kg, PRN Insomnia, Start date: 11/08/14 11:04:00, Duration: 30 day, Stop date: 12/08/14 11:03:00 Promethazine Notes: Do not No Longer Sugar give IV push. Active 2014 [place] (Same as: Phenergan) Ondansetron Notes: (Same No Longer Lanza gar as: Zofran) Active 2014 Morphine Notes: (Same No Longer Sugar as:MORPhine Active 2014 Sulfate) acetaminophen-co Notes: Do not No Longer Sugar deine #3 exceed 4gm/day Active 2014 [place] of acetaminophen. (Same as: Tylenol with Codeine # 3) Calcium Chloride 1,000 mL, Rate: No Longer 11/08 Sugar 0.0014 MEQ/ML / 125 ml/hr, Active 2014 [facility] Potassium Infuse over: 8 Chloride 0.004 hr, Route: IV, MEQ/ML / Sodium Dosing Weight Chloride 0.103 124.318 kg, MEQ/ML / Sodium Total Volume: Lactate 0.028 1,000, Start MEQ/ML date: 11/08/14 Injectable 11:04:00, Solution Duration: 30 day, Stop date: 12/08/14 11:03:00 Ciprofloxacin 2 400 mg, Route: Inactive Sugar MG/ML Injectable IVPB, [id number], 2014 Solution [Cipro] Dosing Weight 127.136, kg, Start date: 11/08/14 8:00:00, Duration: 30 day, Stop date: 12/07/14 20:00:00 Calcium Chloride 1,000 mL, Rate: Inactive Sugar 0.0014 MEQ/ML / 25 ml/hr, 2014 Potassium Infuse over: 40 Chloride 0.004 hr, Route: IV, MEQ/ML / Sodium Dosing Weight Chloride 0.103 127.136 kg, MEQ/ML / Sodium Total Volume: Lactate 0.028 1,000, Start MEQ/ML date: 11/08/14 Injectable 7:46:00, Solution Duration: 1 doses or times, Stop date: 11/09/14 23:45:00 Levaquin Notes: (Same No Longer Sugar as:Levaquin) Active 2014 [place] BD Posiflush SF Notes: (Same No Longer H Sugar as: BD Active 2014 [facility] Posiflush) alfuzosin 10 mg 10 mg = 1 tab, No Longer Sugar oral tablet, PO, Daily, # 30 Active 2014 Geremias d extended release tab, 0 Refill(s) montelukast 10 10 mg = 1 tab, No Longer Sugar mg oral tablet PO, QPM, 0 Active 2014 [facility] Refill(s) metoprolol 50 mg = 1 tab, No Longer S ugar tartrate 50 mg PO, Daily, 0 Active 2014 [place] oral tablet Refill(s) Dutasteride 0.5 0.5 mg = 1 cap, No Longer Sugar MG Oral Capsule PO, Daily, # 30 Active 2014 [place] [Avodart] cap, 0 Refill(s) pitavastatin 4 4 mg = 1 tab, No Longer H Sugar MG Oral Tablet PO, Daily, 0 Active 2014 [place] [Livalo] Refill(s) Glipizide 5 MG 5 mg = 1 tab, No Longer H Sugar Oral Tablet PO, BID, # 30 Active 2014 [place] tab, 0 Refill(s) sitagliptin 100 100 mg = 1 tab, No Longer Sugar MG Oral Tablet PO, Daily, # 30 Active 2014 L and [Januvia] tab, 0 Refill(s) losartan 100 mg 100 mg = 1 tab, No Longer Sugar oral tablet PO, Daily, # 30 Active 2014 [place] tab, 0 Refill(s) Pravastatin 1 tab(s) orally Active 20 mg orally CHRYSTAL 05/12/ [facility] are Sodium once a day 2012 Med Group (at bedtime) losartan 1 tab(s) orally Active 100 mg orally CHRYSTAL 10/30/ [facility] once a day 2011 Med Group Livalo 1 tab(s) orally No Longer 2 mg orally CHRYSTAL 10/30/ [facility] Active once a day 2011 Med Group amlodipine 1 tab(s) orally Active 10 mg orally CHRYSTAL [facility] once a day Med Group spironolactone 1 tab(s) orally Active 50 mg orally CHRYSTAL Betzaida [facility] daily Med Group benazepril 1 tab(s) orally Active 40 mg orally CHRYSTAL [facility] once a day Med Group metoprolol 1 tab(s) orally Active 50 mg orally CHRYSTAL [facility] once a day Med Group Aspir 81 1 tab(s) orally Active 81 mg orally CHRYSTAL [facility] once a day Med Group Allergies, Adverse Reactions, Alerts Substance Category Reaction Severity Reaction Status Date Comments S ource type Reported No Known Assertion Drug Medication allergy Medic al Allergies Group Immunizations Immunization Date Site Status Last Comments Source Given Updated pneumococcal Right completed [place] [facility] 23-valent 5 deltoid Group, vaccine [facility] [place], [facility] [place],[facility], [facility] Depo-medrol 80mg completed Betzaida [facility] Med 3 Group pneumococcal Left completed [place] [facility] 23-valent 0 deltoid Group, vaccine [facility] [place], [facility] [place],[facility] [place], [place] Results Order Name Results Value Reference Date Interpretation Comments Penny rce Range URINE AND UA Color Yellow Yellow 09/03 Sugar STOOL *NA* [place] (09/02/19 9:02 PM) URINE AND UA Turbidity Slight Clear 09/03 Sugar STOOL *ABN* [facility] (09/02/19 9:02 PM) URINE AND UA Spec Grav 1.011 <=1.030 09/03 Sugar STOOL [place] URINE AND UA pH 8.0 5.0 - 8.0 09/03 Sugar STOOL [place] URINE AND UA Protein >=300 Negative 09/03 Sugar STOOL mg/dL mg/dL [place] URINE AND UA Glucose 500 mg/dL Negative 09/03 Sugar STOOL mg/dL [place] URINE AND UA Ketones Negative Negative 09/03 Sugar STOOL *NA* /2018 [facility] (09/02/19 9:02 PM) URINE AND UA Bili Negative Negative 09/03 Sugar STOOL *NA* [facility] (09/02/19 9:02 PM) URINE AND UA Blood Small Negative 09/03 Sugar STOOL *ABN* [facility] (09/02/19 9:02 PM) URINE AND UA <=1.0 0.1 - 1.0 09/03 Sugar STOOL Urobilinogen mg/dL /2018 [facility] URINE AND UA Nitrite Negative Negative 09/03 Sugar STOOL (09/02/19 9:02 PM) [place] URINE AND UA Leuk Est Moderate Negative 09/03 Sugar STOOL *ABN* [place] (09/02/19 9:02 PM) URINE AND UA Sq Epi None Seen Few 09/03 Sugar STOOL (09/02/19 9:02 PM) [place] URINE AND UA WBC 107 0 - 5 09/03 Sugar STOOL [place] URINE AND UA RBC 10 0 - 2 09/03 Sugar STOOL Land URINE AND UA Bacteria Occasional None Seen 09/03 Lanza gar STOOL /HPF /HPF /2018 [place] Culture: 10,000 - 50,000 CFU/mL Staphylococcus Species, No t S. aureus 09/03 Sugar Urine If Identification Or Sensitivity Required, [facility] Microbiology At [phone] Within 48 Hours. CHEM PANEL Magnesium Lvl 2.5 1.8 - 2.4 11/25 [facility] CHEM PANEL Phosphorus 6.1 2.5 - 4.5 11/25 [facility]2018 [facility] ELECTROLYTE AGAP 13.9 10.0 - 11/25 [facility] S 20.0 [facility] ELECTROLYTE eGFR 7 11/25 Result [facility] Comment: The Medical eGFR is Center calculated using the CKD-EPI formula. In most young, healthy individuals the eGFR will be >90 mL/min/1.73m2 . The eGFR declines with age. An eGFR of 60-89 may be normal in some populations, particularly the elderly, for whom the CKD-EPI formula has not been extensively validated. Use of the eGFR is not recommended in the following populations:< br/>
Shyla viduals with unstable creatinine concentration s, including patients and those with serious co-morbid conditions.<b r/>
Patie nts with extremes in muscle mass or diet.

The data above are obtained from the National Kidney Disease Education Program (NKDEP) which additionally recommends that when the eGFR is used in patients with extremes of body mass index for purposes of drug dosing, the eGFR should be multiplied by the estimated BMI. ELECTROLYTE Potassium Lvl 3.9 3.5 - 5.1 11/25 [place] [facility] ELECTROLYTE Calcium Lvl 9.4 8.5 - 10.5 11/25 [facility] ELECTROLYTE Glucose Lvl 98 70 - 99 11/25 [facility]2018 [facility] ELECTROLYTE Chloride Lvl 100 95 - 109 11/25 [facility] [facility] ELECTROLYTE CO2 29 24 - 32 11/25 [facility]2018 [facility] ELECTROLYTE Sodium Lvl 139 135 - 145 11/25 [facility]2018 [facility] ELECTROLYTE Creatinine 6.85 0.50 - 11/25 [facility] S Lvl 1.40 [facility] ELECTROLYTE BUN 50 7 - 22 11/25 [facility]2018 [facility] HEMATOLOGY PTT 61.4 22.9 - 11/25 [place] 35.8 [facility] HEMATOLOGY INR 2.69 0.85 - 02/12 [place] 1.17 /2018 [facility] HEMATOLOGY PT 28.0 12.0 - 11/25 14.7 2019 [facility] HEMATOLOGY Basophils # 0.1 0.0 - 0.2 11/25 [facility] s [facility] HEMATOLOGY Eosinophils # 0.7 0.0 - 0.5 11/25 [facility] xa [facility] HEMATOLOGY Monocytes # 0.9 0.0 - 0.8 11/25 [facility] HEMATOLOGY Lymphocytes # 1.9 1.0 - 5.5 11/25 [facility] xa [facility] HEMATOLOGY Neutrophils # 7.3 1.5 - 8.1 11/25 [facility] xa [facility] HEMATOLOGY Eosinophils 6.0 0.0 - 4.0 11/25 [facility] HEMATOLOGY Monocytes 8.5 2.0 - 12.0 11/25 [facility] HEMATOLOGY Basophils 0.8 0.0 - 1.0 11/25 [facility] HEMATOLOGY Segs 67.0 45.0 - 11/25 [place] 75.0 2019 [facility] HEMATOLOGY Lymphocytes 17.7 20.0 - 11/25 [place] 40.0 2019 [facility] HEMATOLOGY WBC 11.0 3.7 - 10.4 11/25 [facility] HEMATOLOGY RBC 2.69 4.70 - 11/25 [place] 6.10 2019 [facility] HEMATOLOGY Hct 25.0 42.0 - 11/25 [place] 54.0 2019 [facility] HEMATOLOGY Hgb 8.4 14.0 - 11/25 [place] 18.0 2019 [facility] HEMATOLOGY MCH 31.4 27.0 - 02 [place] 31.0 2019 [facility] HEMATOLOGY MCV 93.0 80.0 - 11/25 [place] 94.0 2019 [facility] HEMATOLOGY MPV 9.2 7.4 - 10.4 11/25 [facility] HEMATOLOGY Platelet 193 133 - 450 11/25 [facility] HEMATOLOGY RDW 15.4 11.5 - 11/25 [place] 14.5 2019 [facility] HEMATOLOGY MCHC 33.7 32.0 - 02 [place] 36.0 2019 [facility] CHEM PANEL Phosphorus 6.7 2.5 - 4.5 11/24 [facility]2018 [facility] CHEM PANEL Magnesium Lvl 2.6 1.8 - 2.4 11/24 [facility] CHEM PANEL eGFR 6 11/24 Result Comment: The Medical eGFR is Center calculated using the CKD-EPI formula. In most young, healthy individuals the eGFR will be >90 mL/min/1.73m2 . The eGFR declines with age. An eGFR of 60-89 may be normal in some populations, particularly the elderly, for whom the CKD-EPI formula has not been extensively validated. Use of the eGFR is not recommended in the following populations:< br/>
Shyla viduals with unstable creatinine concentration s, including patients and those with serious co-morbid conditions.<b r/>
Patie nts with extremes in muscle mass or diet.

The data above are obtained from the National Kidney Disease Education Program (NKDEP) which additionally recommends that when the eGFR is used in patients with extremes of body mass index for purposes of drug dosing, the eGFR should be multiplied by the estimated BMI. CHEM PANEL CO2 28 24 - 32 11/[address] CHEM PANEL Calcium Lvl 9.6 8.5 - 10.5 11/24 [facility] CHEM PANEL BUN 57 7 - 22 11/[address] CHEM PANEL Creatinine 7.59 0.50 - 11/24 [facility] Lvl 1.40 [facility] CHEM PANEL Sodium Lvl 136 135 - 145 11/[address] CHEM PANEL Potassium Lvl 5.3 3.5 - 5.1 11/24 [facility]2018 [facility] CHEM PANEL Chloride Lvl 98 95 - 109 11/24 [facility] 2018 [facility] CHEM PANEL Glucose Lvl 103 70 - 99 11/[address] CHEM PANEL AGAP 15.3 10.0 - 11/24 [place] 20.0 [facility] HEMATOLOGY Lymphocytes # 2.3 1.0 - 5.5 11/24 [facility]2018 [facility] HEMATOLOGY Eosinophils 7.0 0.0 - 4.0 11/24 [facility]2018 [facility] HEMATOLOGY Neutrophils # 5.7 1.5 - 8.1 11/24 [facility]2018 [facility] HEMATOLOGY Monocytes # 0.9 0.0 - 0.8 11/24 [facility] HEMATOLOGY Basophils # 0.1 0.0 - 0.2 11/24 [place] [facility] HEMATOLOGY Eosinophils # 0.7 0.0 - 0.5 11/24 [place]2018 [facility] HEMATOLOGY Lymphocytes 23.6 20.0 - 11/24 [place] 40.0 /2019 [facility] HEMATOLOGY Segs 59.3 45.0 - 11/24 [place] 75.0 /2019 [facility] HEMATOLOGY Monocytes 9.2 2.0 - 12.0 11/24 [facility] HEMATOLOGY Basophils 0.9 0.0 - 1.0 11/24 [facility] HEMATOLOGY MCV 93.1 80.0 - 11/24 [place] 94.0 /2019 [facility] HEMATOLOGY MCHC 34.3 32.0 - 11/24 [place] 36.0 2019 [facility] HEMATOLOGY RDW 15.5 11.5 - 11/24 [place] 14.5 /2019 [facility] HEMATOLOGY Platelet 175 133 - 450 11/24 [facility] HEMATOLOGY WBC 9.7 3.7 - 10.4 11/24 [facility] HEMATOLOGY MCH 32.0 27.0 - 11/24 [place] 31.0 2019 [facility] HEMATOLOGY RBC 2.72 4.70 - 11/24 [place] 6.10 2019 [facility] HEMATOLOGY Hgb 8.7 14.0 - 11/24 [place] 18.0 2019 [facility] HEMATOLOGY Hct 25.3 42.0 - 11/24 [place] 54.0 /2019 [facility] HEMATOLOGY MPV 9.8 7.4 - 10.4 11/24 [facility] HEMATOLOGY INR 2.31 0.85 - 11/24 [place] 1.17 2019 [facility] HEMATOLOGY PTT 79.5 22.9 - 11/24 [place] 35.8 /2019 [facility] HEMATOLOGY PT 24.9 12.0 - 11/24 [place] 14.7 2019 [facility] CHEM PANEL eGFR 9 11/23 Result Comment: The Medical eGFR is Center calculated using the CKD-EPI formula. In most young, healthy individuals the eGFR will be >90 mL/min/1.73m2 . The eGFR declines with age. An eGFR of 60-89 may be normal in some populations, particularly the elderly, for whom the CKD-EPI formula has not been extensively validated. Use of the eGFR is not recommended in the following populations:< br/>
Shyla viduals with unstable creatinine concentration s, including patients and those with serious co-morbid conditions.<b r/>
Patie nts with extremes in muscle mass or diet.

The data above are obtained from the National Kidney Disease Education Program (NKDEP) which additionally recommends that when the eGFR is used in patients with extremes of body mass index for purposes of drug dosing, the eGFR should be multiplied by the estimated BMI. CHEM PANEL BUN 39 7 - 22 11/23 [facility] CHEM PANEL Creatinine 5.64 0.50 - 11/23 [facility] Lvl 1.40 [facility] CHEM PANEL Glucose Lvl 115 70 - 99 11/23 [facility]2018 [facility] CHEM PANEL Sodium Lvl 140 135 - 145 11/23 [facility]2018 [facility] CHEM PANEL Calcium Lvl 9.4 8.5 - 10.5 11/23 [place] [facility] CHEM PANEL Chloride Lvl 100 95 - 109 11/23 [place] [facility] CHEM PANEL AGAP 13.7 10.0 - 11/23 [place] 20.0 [facility] CHEM PANEL Potassium Lvl 3.7 3.5 - 5.1 11/23 [place] [facility] CHEM PANEL CO2 30 24 - 32 11/23 2018 [facility] HEMATOLOGY MCV 93.6 80.0 - 11/23 [place] 94.0 [facility] HEMATOLOGY Hct 25.3 42.0 - 11/23 [place] 54.0 [facility] HEMATOLOGY MCHC 34.7 32.0 - 11/23 [place] 36.0 [facility] HEMATOLOGY RDW 15.7 11.5 - 11/23 [place] 14.5 [facility] HEMATOLOGY Platelet 165 133 - 450 11/23 2018 [facility] HEMATOLOGY MCH 32.5 27.0 - 02 [place] 31.0 [facility] HEMATOLOGY RBC 2.70 4.70 - 11/23 [place] 6.10 [facility] HEMATOLOGY Hgb 8.8 14.0 - 11/23 [place] 18.0 [facility] HEMATOLOGY MPV 9.8 7.4 - 10.4 11/23 2018 [facility] HEMATOLOGY WBC 7.8 3.7 - 10.4 11/23 [facility] HEMATOLOGY INR 1.62 0.85 - 11/23 [place] 1.17 [facility] HEMATOLOGY PTT 77.2 22.9 - 02 [place] 35.8 2019 [facility] HEMATOLOGY PT 18.9 12.0 - 02 [place] 14.7 [facility] HEMATOLOGY Monocytes # 0.7 0.0 - 0.8 11/23 [facility] HEMATOLOGY Eosinophils # 0.6 0.0 - 0.5 11/23 [facility] HEMATOLOGY Basophils # 0.1 0.0 - 0.2 11/23 [facility] HEMATOLOGY Lymphocytes # 1.7 1.0 - 5.5 11/23 [facility] HEMATOLOGY Segs 60.5 45.0 - 11/23 [facility] 75.0 [facility] HEMATOLOGY Lymphocytes 21.3 20.0 - 11/23 [facility] 40.0 [facility] HEMATOLOGY Neutrophils # 4.7 1.5 - 8.1 11/23 [facility] HEMATOLOGY Basophils 1.0 0.0 - 1.0 11/23 [facility] HEMATOLOGY Eosinophils 7.9 0.0 - 4.0 11/23 [facility] HEMATOLOGY Monocytes 9.3 2.0 - 12.0 11/23 [facility] CHEM PANEL Phosphorus 7.6 2.5 - 4.5 11/22 [facility]2018 [facility] CHEM PANEL Magnesium Lvl 2.5 1.8 - 2.4 11/22 [facility] PARATHYROID Ca Norm WB 1.15 1.05 - 11/22 [place] PROFILE 11.07 [facility] PARATHYROID Ca Ion WB 1.18 1.05 - 11/22 [place] PROFILE 11.07 [facility] PARATHYROID Ca Norm WB 1.13 1.05 - 11/20 [place] PROFILE 11.07 [facility] PARATHYROID Ca Ion WB 1.12 1.05 - 11/20 [facility] PROFILE 11.07 [facility] BACTERIAL - MRSA by PCR Negative 11/19 [facility] SEROLOGY (11/19/18 3:06 AM) /2018 [facility] PARATHYROID Ca Norm WB 1.11 1.05 - 11/19 [place] PROFILE 11.07 [facility] PARATHYROID Ca Ion WB 1.10 1.05 - 02 [place] PROFILE 1. [facility] IMMUNOLOGY Hep C Ab Negative 11/18 [place] *NA* /2018 Medical (11/18/18 5:43 AM) [facility] IMMUNOLOGY Hep Bs Ab 66.7 <=7.4 11/18 [place] mIU/mL /2018 [facility] IMMUNOLOGY Hep B Core Negative Negative 11/18 [place] IgM *NA* Medical (11/18/18 5:43 AM) Center IMMUNOLOGY Hep B Core Ab Negative Negative 11/18 [place] *[place]* Medical (11/18/18 5:43 AM) [facility] IMMUNOLOGY Hep Bs Ag Negative Negative 11/18 [place] *NA* [facility] (11/18/18 5:43 AM) [facility] BLOOD BANK RBC product Product available 11/17 [place] RESULTS (11/17/18 10:45 AM) /2018 [facility] BLOOD BANK Platelet Product available 11/17 [facility] RESULTS product (11/17/18 10:45 AM) /2018 [facility] BLOOD BANK FFP product Product available 11/17 [facility] RESULTS (11/17/18 10:45 AM) /2018 [facility] BLOOD BANK Antibody Scrn Negative 11/14 [place] RESULTS (11/14/18 2:06 PM) [facility] BLOOD BANK ABO/Rh A POS 11/14 [facility] CHEM PANEL Globulin 3.9 2.7 - 4.2 11/14 [facility] CHEM PANEL A/G Ratio 0.9 0.7 - 1.6 11/14 [facility] CHEM PANEL Bili Direct 0.1 0.0 - 0.3 11/14 [place] [facility] CHEM PANEL Bili Indirect 0.4 0.0 - 1.0 11/14 [place] [facility] CHEM PANEL Alk Phos 91 39 - 136 11/14 [facility] CHEM PANEL Bili Total 0.5 0.2 - 1.3 11/14 [facility] CHEM PANEL Albumin Lvl 3.6 3.5 - 5.0 11/14 [facility] CHEM PANEL ALT 21 0 - 65 11/14 [facility] CHEM PANEL AST 12 0 - 37 11/14 [facility] CHEM PANEL Total Protein 7.5 6.4 - 8.4 11/14 [place] [facility] SPECIAL Hgb A1C 6.8 <=5.6 % 11/14 [place] CHEMISTRY [facility] LABORATORY Blood 152 74 - 106 07/29 [facility] Glucose, Capillary LABORATORY Blood 139 74 - 106 07/15 [facility] Glucose, Capillary ELECTROLYTE Sodium Lvl 142 135 - 145 08/29 [place] ELECTROL[place]TE Chloride Lvl 108 95 - 109 08/29 [place] ELECTROLYTE Potassium Lvl 3.6 3.5 - 5.1 08/29 [place] ELECTROLYTE Creatinine 4.21 0.50 - 08/29 [place] Lvl 1.40 /2014 [place] ELECTROLYTE CO2 27 24 - 32 08/29 [place] ELECTROLYTE AGAP 10.6 10.0 - 08/29 [place] ELECTROLYTE Calcium Lvl 9.0 8.5 - 10.5 08/29 [place] ELECTROLYTE BUN 47 7 - 22 08/29 [place] ELECTROLYTE Glucose Lvl 111 70 - 99 08/29 [place] ELECTROLYTE eGFR 13 08/29 Result [place] Comment: [facility] eGFR is calculated using the CKD-EPI formula. In most young, healthy individuals the eGFR will be >90 mL/min/1.73m2 . The eGFR declines with age. An eGFR of 60-89 may be normal in some populations, particularly the elderly, for whom the CKD-EPI formula has not been extensively validated. Use of the eGFR is not recommended in the following populations:< br/>
Shyla viduals with unstable creatinine concentration s, including patients and those with serious co-morbid conditions.<b r/>
Patie nts with extremes in muscle mass or diet.

The data above are obtained from the National Kidney Disease Education Program (NKDEP) which additionally recommends that when the eGFR is used in patients with extremes of body mass index for purposes of drug dosing, the eGFR should be multiplied by the estimated BMI. CHEM PANEL eGFR 24 11/01 <sup>1</sup>[place] Comment: The eGFR is calculated using the CKD-EPI formula. In most young, healthy individuals the eGFR will be >90 mL/min/1.73m2 . The eGFR declines with age. An eGFR of 60-89 may be normal in some populations, particularly the elderly, for whom the CKD-EPI formula has not been extensively validated. Use of the eGFR is not recommended in the following populations:& lt;br/>
I ndividuals with unstable creatinine concentration s, including patients and those with serious co-morbid conditions.<b r/>
Patie nts with extremes in muscle mass or diet.

The data above are obtained from the National Kidney Disease Education Program (NKDEP) which additionally recommends that when the eGFR is used in patients with extremes of body mass index for purposes of drug dosing, the eGFR should be multiplied by the estimated BMI. CHEM PANEL Chloride Lvl 108 95 - 109 11/01 [place] CHEM PANEL CO2 28 24 - 32 11/01 [place] CHEM PANEL Calcium Lvl 9.1 8.5 - 10.5 11/01 [place] CHEM PANEL Glucose Lvl 138 70 - 99 11/01 <sup>2</sup>I nterpretive [facility] Data: Adult reference range values reflect the clinical guidelines
of the [place] [employer]. CHEM PANEL Sodium Lvl 143 135 - 145 11/01 [place] CHEM PANEL Creatinine 2.6 0.5 - 1.4 11/01 [place] CHEM PANEL Potassium Lvl 4.2 3.5 - 5.1 11/01 [place] CHEM PANEL BUN 23 7 - 22 11/01 [place] CHEM PANEL AGAP 11.2 10.0 - 11/01 [place] 20[place] HEMATOLOGY Platelet 180 133 - 450 11/01 [place] HEMATOLOGY MPV 9.5 7.4 - 10.4 11/01 [place] HEMATOLOGY RBC 4.89 4.70 - 11/01 [place] 6.10 [facility] HEMATOLOGY Hgb 14.3 14.0 - 11/01 [place] 18[place]0 [place] HEMATOLOGY WBC 10.6 3.7 - 10.4 11/01 [facility] HEMATOLOGY RDW 12.7 11.5 - 11/01 [place] 14.5 /2014 [place] HEMATOLOGY MCHC 33.1 32.0 - 11/01 [place] 36.0 /2014 [facility] HEMATOLOGY Hct 43.3 42.0 - 11/01 [place] 54.0 /2014 [facility] HEMATOLOGY MCV 88.6 80.0 - 11/01 [place] 94.0 /2014 [facility] HEMATOLOGY MCH 29.3 27.0 - 11/01 [place] 31.0 /2014 [facility] HEMATOLOGY Segs-Bands # 7.7 1.5 - 8.1 11/01 [place] /2014 [facility] HEMATOLOGY Basophils # 0.0 0.0 - 0.2 11/01 [place] /2014 [facility] HEMATOLOGY Monocytes # 0.5 0.0 - 0.8 11/01 [place] [facility] HEMATOLOGY Eosinophils # 0.2 0.0 - 0.5 11/01 [place] [facility] HEMATOLOGY Lymphocytes # 2.3 1.0 - 5.5 11/01 [place] /2014 [facility] HEMATOLOGY Segs 72.1 45.0 - 11/01 [place] 75.0 [facility] HEMATOLOGY Lymphocytes 21.4 20.0 - 11/01 [place] 40.0 [facility] HEMATOLOGY Monocytes 4.5 2.0 - 12.0 11/01 [place] [facility] HEMATOLOGY Basophils 0.3 0.0 - 1.0 11/01 [place] [facility] HEMATOLOGY Eosinophils 1.7 0.0 - 4.0 11/01 [place] /2014 [facility] SPECIAL Hgb A1C 7.1 <=5.6 % 11/01 [place] CHEMISTRY [facility] Pathology Reports No Data Provided for This Section Diagnostic Reports Report Value Date Source Chest 1view DX EXAM: XR CHEST 1 VIEW 11/21/2018 [facility] edical DATE: 11/21/2018 3:00 [employer] Center INDICATION: - abnormal lung sounds COMPARISON: 11/19/2018 TECHNIQUE: AP chest IMPRESSION: 1. Interval removal of the right IJV central venous line. Interval removal of the right thoracostomy tube and mediastinal drainage tube. 2. Cardiomediastinal struct ures upper limit of normal size. Status post minimally invasive aortic valve replacement with postsurgical changes. Aortic atherosclerotic disease. 3. Diminished lung volumes bilaterally is prominent lung vasculature and scattered atelectatic changes. 4. Osseous structures are stable. 5. Costophrenic sulci are sharp. Chest 1view DX EXAM: XR CHEST 1 VIEW 11/19/2018 [facility] edical DATE: 11/19/2018 3:00 [employer] Center INDICATION: Abnormal chest sounds - abnomral manas st sounds COMPARISON: 11/18/2018 TECHNIQUE: AP chest. IMPRESSION: 1. Stable life support lines and tubes. 2. Lung volumes are low wit h bronchovascular crowding, unchanged. Scattered opacities seen in the right lung and left lower lung are stable and may represent atelectasis, hemorrhage, aspiration or pneumonia. 3. Stable layering right pl eural effusion with apical capping. Stable small left pleural effusion also noted. 4. No pneumothorax. 5. Stable prominent cardiac mediastinal silhoue tte and postsurgical changes. Chest 1view DX EXAM: XR CHEST 1 VIEW 11/18/2018 [facility] edical DATE: 11/18/2018 3:00 [employer] Center INDICATION: - s/p aortic valve replacement COMPARISON: Chest x-ray from 11/17/2018 TECHNIQUE: AP chest. FINDINGS: Lines, tubes and hardware: U nchanged appearance of right IJ central venous catheter, aortic valve replacement, right chest tube, epicardial pacing wires, and postsurgical changes of the mediastinum with malleable plate and screws and surgical clips. Interval removal of nasogastric tube and interval extubation. Lungs and pleura: There is h aziness affecting the right lung as well as scattered patchy opacities in the left lung base. Unchanged small left pleural effusion and layering right effusion with apical capping. Heart and mediastinum: The cardiomediastinal gail houette is unchanged. Bones: No acute abnormality. IMPRESSION: 1. Interval extubation and removal of nasogastr ic tube. 2. Unchanged appearance of a layering right hem othorax. 3. Scattered opacities in t he right lung and left lung base may represent subsegmental atelectasis, hemorrhage, or aspiration. Infection cannot be excluded. Chest 1 v for Placement EXAM: XR CHEST 1 VIEW 11/17/2018 [facility] DX DATE: 11/17/2018 18:58 [employer] Center INDICATION: Tube placement - s/p AVR COMPARISON: Chest x-ray 11/14/2018 TECHNIQUE: AP chest. FINDINGS: Lines, tubes and hardware: T ip of the endotracheal tube is approximately 5.4 cm from the z[place]. A right approach chest tube is in place with the tip in the right upper lung. Inferior approach mediastin al drain is in place. Right IJ catheter sheath place with the tips are directed at the superior vena cava. Side-port of the nasogastric tube projects at the stomach. Prosthetic cardiac valves are in place. Lungs and pleura: No distinc t pneumothorax. Layering right pleural effusion up to the apex, with expected haziness of the right lung. Tiny left pleural effusion. There is a small left lung opacity which obscures the silhouette of the descendi ng aorta, and the cardiophrenic angle. Heart and mediastinum: The h eart size is normal for technique. The mediastinal contours are normal. Pulmonary vascularity is normal. Bones: No acute abnormality. IMPRESSION: 1. Layering right hemothorax. Tiny left pleural effusion. 2. Small left lung opacity may represent infection, atelectasis, layering pleural effusion, or any combination of these entities. 3. Lines and tubes as described. Chest 2 views DX EXAM: XR CHEST 2 VIEWS 11/14/2018 [facility] DATE: 11/14/2018 10:54 [employer] Center INDICATION: Severe Aortic Stenosis - Severe Aort ic Stenosis COMPARISON: None. TECHNIQUE: PA and lateral chest radiographs FINDINGS: Lines, tubes and hardware: None. Lungs and pleura: Prominent lung reticulations and peribronchial cuffing bilaterally. Left basilar atelectatic changes are noted. Costophrenic sulci are sharp. Heart and mediastinum: normal. Aortic atheroscle rotic disease. Bones: No acute bony abnormality is identified. IMPRESSION: 1. Chest radiographic featu res suggestive of interstitial pulmonary edema. Superimposed infection cannot be excluded. 2. Left basilar atelectatic changes. 3. Aortic atherosclerotic disease. Gallbladder scan HIDA w Clinical Indication: Abdomin al distention. Abdominal pain for 2 years.. 10/30/2018 [facility] Comparison: None TECHNIQUE: Hepatobiliary scan is perfor med using 5 mCi of Tc-99m Choletec, which was administered intravenously. 60 minutes of static imaging was performed at 5 minute intervals in the frontal plane - starting 5 minutes after radiotracer ad ministration. 2 ug of CCK was used for the exam, which was administered intravenously. 30 minutes of further static imaging was performed at 5 minute intervals after CCK adm inistration in the frontal p lorie for gallbladder ejection fraction calculation. FINDINGS: Prompt hepatic uptake and ex cretion. There is progression of the radiotracer through a non dilated biliary tree and into small bowel. Gallbladder filling is first noted at 20 minutes past radiotracer injection. After Cholecystokinin infusi on the gallbladder ejection fraction is noted to be 22%. (GB ejection fraction - normal greater than 50%, indeterminate 35-50%, abnormal <35%) Technologist Comment: No pain reported during CC K administration IMPRESSION: Decreased gallbladder ejecti on fraction of 22% after CCK infusion, may reflect underlying biliary dyskinesia or chronic cholecystitis. SL: [id number] Heart/coronary art TAVR EXAM: CTA HEART WITH CONTRAST 10/01/2018 [facility] CTA DATE: 10/01/2018 Center INDICATION: - Aortic Stenosis. Aortic stenosis, TAVR candidate, CAD COMPARISON: None TECHNIQUE: Contrast imaging was perform ed on a Bety Aquilion 320 slice MDCT scanner, utilizing a single breath-hold, space at 750 mA and 120 kV. A preliminary irrigationist designer study was obtained. Retrospective ECG gating wa s performed, at a heart rate of 63-69 bpm. Images were reformatted at 0.5 mm intervals and sent to the [employer] workstation for interpretation of 3D anatomic reconstructions, including multiplanar braeden nstructions (MPR), maximum i ntensity projections (MIP), and multi-planar imaging, and 4D cine reconstructions for functional evaluation of cardiac valves and ventricular chambers during systolic and diastolic phrases. IV contrast: 90 mL of Visipa que 320 contrast was delivered intravenously at 6 mL/sec followed by a 50 mL normal saline bolus chaser. STUDY QUALITY: Good FINDINGS: Aortic root landmarks (dimensions determined in systolic phases) Aortic valve: Trifleaflet: s ymmetricallycalcified; bulky leaflet: No; right/left/noncoronary Coplanar TAVR angle: BULGARIAN 2 CAU 2 Aortic annulus: 26.8 x 22.5 mm; average 24.2 mm; area 4.62 sq cm; circumference 77.2 mm Ao annulus to coronary height: left main: 13.1 m m; right: 14.7 mm Ao annulus to STJ length: 21.6 mm Sinuses of Valsalva Width: left 33.0 mm, right 3 1.9 mm, non-coronary 35.7 mm Sino-tubular junction: 30.8 x 29.5 mm; average 3 0.0 mm Ascending aorta width at 40 mm from annulus: 38. 6 x 37.7 mm; average 37.8 mm Descending thoracic aorta: 27.1x 26.2 mm; averag e 26.5mm Coronary Arteries: This patient has a right dom inant system, with normal origins of the coronary arteries. Left main is a medium caliber vessel that bifurcates into the left anterior descending and left circumflex coronar y arteries. Left main is pat ent without significant stenosis visualized. Left anterior descending is a medium caliber vessel that has calcified plaques scattered throughout the vessel. There is a small calcified plaque at the junc tion of the left main and ostium of the left anterior descending and proximal LAD, resulting in 35-65% stenosis. Left circumflex coronary is a medium caliber vessel that has scattered calcified plaques throughout the vessel; proximal left circumflex has calcified plaques resulting in 20-50% stenosis. Right coronary artery is a large caliber vessel that gives off to the post erior descending artery. The re are scattered calcified plaques throughout the vessel; proximal RCA has 40-60% stenosis while mid and distal RCA has 60-75% stenosis. Correlation with coronary angiogram is suggested. Basal septal hypertrophy: Yes Severe hypertrophy (1.5 cm wall thickness): 18.0 mm Intracardiac masses: none Other cardiac findings: Left ventricle is normal in size and systolic function. Concentric left ventricular hypertrophy is noted. LV End-Diastolic Volume: 112 ml LV End-Systolic Volume: 40 ml LV Ejection Fraction: 64% IMPRESSION: 1. Trileaflet symmetrically calcified aortic valve and with aortic annular measurements as described above. 2. Multivessel coronary atherosclerotic disease. Please refer to separate chest, abdomen and pelv is CTA report by Radiology. 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 Volumetric CT of the chest, abdomen and pelvis is acquired in precontrast, arterial, and venous phase following intravenous administr ation of contrast. Axial, co amanda and sagittal reconstructions, along with 3D MIP reconstructions, are created at the acquisition workstation. IV contrast: 60 mL of Visipaque 320 Oral contrast: None. DLP: 3757 mGy-cm FINDINGS: AORTA: The aorta measures: 3.6 cm at the ascending aorta at the level of th e pulmonary artery, 2.6 cm at the mid arch, 2.8 cm at the descending aorta at the level of t he main pulmonary artery, 2.5 cm at the level of the aortic hiatus, 1.9 cm at the level of the renal arteries, and 2.2 cm just proximal to the iliac bifurcation. Moderate to severe calcified and noncalcified atherosclerotic plaques are seen scattered throughout the thoracic and abdominal aorta and its branches. There is mild ectasia of the distal abdominal aorta measuring up to 2.2 cm just prior to the bifurcation into the iliac arteries. Bovine arch variant. Lower neck: The visible por tions or the lower neck and thyroid are unremarkable. Axilla: Clear. Airway: Patent. Lungs and pleura: 0.2 cm ri ght upper lobe nodule (9/44). 0.2 cm nodule is seen within the horizontal fissure (9/68). 2 mm granuloma seen within the left lower lobe. No evidence of a central or segmental pulmonary embolism. Mediastinum, kiara and intrat horacic lymph nodes: Scattered subcentimeter lymph nodes are seen within the subcarinal space. Several benign-appearing hilar lymph nodes are visualized measuring up to 0.6 c m in greatest diameter. Calc ified lymph node is seen within the right hilar region. Additional benign-appearing subcentimeter mediastinal lymph nodes are visualized. Heart, pericardium and great vessels: For findings within the heart, refer to the same day cardiac CT. Liver: Normal. Biliary tree: No intra- or extrahepatic biliary ductal dilation. Gallbladder: Normal. Pancreas: Normal. Spleen: Normal. Adrenals: Normal. Kidneys and ureters: Cortica l thinning and a lobulated contour seen within both kidneys bilaterally, left greater than right. The left kidney is markedly atrophic. 0.2 cm nonobstructive calculus is seen in the inferior pole the ri ght kidney. 1 cm hypodensity seen within the inferior pole the right kidney which is too small to characterize, but statistically is most likely insurance claim representative of a simple renal cyst. Bladder: Normal. Reproductive organs: Prostate and seminal vesicl es are unremarkable. Gastrointestinal tract: Stomach: Normal. Small bowel: Normal. Colon: Patient is status pos t right hemicolectomy. An ileotransverse colon anastomosis is seen in the right upper quadrant. Appendix: Surgically absent. Peritoneum, mesentery and re troperitoneum: No free air, ascites or loculated fluid. Abdominal and pelvic lymph nodes: Normal. Abdominal and pelvic vasculature: Aorta and branches: Atherosclerosis as described above. IVC and veins: Normal. Portal vasculature: Normal. Bones: No acute abnormality. Age-related degenerative findings. Incidentally noted Schmorl's node in the inferior aspect of the 10th thoracic vertebral body. Soft tissues: Diastases rect i (). Small fat-containing umbilical hernia. Small fat-containing paraumbilical hernia. Bilateral fat-containing inguinal hernias. IMPRESSION: 1. Thoracic and abdominal aortic measurements a s described above. 2. Unchanged markedly atrophic left kidney. 3. Cortical thinning and lo bulated contours in the kidneys bilaterally could be insurance claim representative of medical renal disease or scarring from prior infection. 4. Ectasia of the abdominal aorta proximal to t he iliac bifurcation. 5. Two 0.2 cm pulmonary nod ules. Optional CT can be performed to 12 months to document stability. 6. Status post right hemico lectomy with an ileotransverse colon anastomosis in the right upper quadrant which appears intact. 7. Umbilical, periumbilical, and bilateral ingu inal hernias. MULTIPLE SOLID PULMONARY NOD ULES: Use most suspicious nodule to guide management. Nodule Follow Up for Low\\S\\ Follow Up for High\\S\\ Size* Ri sk Patients Risk Patients <6mm No follow up n eeded Optional CT at 12 mo* consider 18-24 mo *in certain high risk pts wi th suspicious nodule morphology, upper lobe location or both may warrant 12 mo f/u Not for use in pediatric patients. See daniela doe le guidelines. \\S\\Fleischner recommends con sidering 'all relevant risk factors.' HIGH RISK is cited as: older age, heavy smoking (>30 pack years), larger nodule size, irregular or spiculated margins, upper lobe location. Other risk factors that can be considered (if relevant): emphysema, fibrosis, exposure to asbestos/uranium/radon, lung cancer in a first degree relative, female gender. REFERENCE: Nelson Ruiz, et al. Guideline s for Management of Incidental Pulmonary Nodules Detected on CT Images: From the Fleischner Society 2017. Radiol 2017; 284; 228- [address] of abdomen and pelvis wit hout contrast (renal stone protocol), 09/19/2015 09/19/2015 LISA Ibrahim HISTORY: Chronic kidney dise ase. Compared to CT of abdomen and pelvis with contrast dated 08/16/2010. TECHNIQUE: Sequential 5 mm n oncontrast axial images were performed from the hemidiaphragms to the symphysis pubis. Sagittal and coronal reconstructions were obtained. DLP: 776 mGy-cm. FINDINGS: The lung bases are clear. No evidence of liver mass or bile duct dilatation. No evidence of calcified gallstones. Normal pancreas, spleen, adrenal glands, and inferior vena cava. Aortic calcifications without aneurysm. Small atrophic left kidney w ith several renal parenchymal calcifications again noted. The right kidney measures 13.8 cm in length without evidence of solid renal mass or hydronephrosis. Calcifications in the intrarenal right renal artery noted. The patient has undergone ri ght hemicolectomy since prior exam with staple line in the right upper quadrant at ileo-transverse anastomosis. No dilated bowel loops noted. Mild constipation. No evidence of ascites. Degenerative changes noted i n the lumbar spine. Small fat-containing ventral/ periumbilical hernia, unchanged. CONCLUSION: Small atrophic left kidney a nd normal size right kidney, unchanged since prior exam. Right hemicolectomy has been performed since betzaida or exam. Retroperitoneal Complete EXAM: 08/29/2015 LISA Ibrahim US Renal ultrasound. INDICATION: Renal insufficiency. Evaluate for hydronephrosis.. TECHNIQUE: Grayscale and Doppler sonogram of the kidneys. COMPARISON: CT abdomen and pelvis August 16, 2010. Renal ultrasound January 01, 2012. FINDINGS: Right kidney: Length: 12.9 cm. Likely mild compensatory hypert rophy. Cortical thickness: 2.4 cm. No hydronephrosis. Mildly heterogeneous echotexture. Left kidney: Not identified in the left renal fossa. Urinary bladder: Not well evaluated as it is collapsed around a F oley catheter. Aorta: Not well evaluated. Common iliac artery origins: Not well evaluated . IVC: Not well evaluated. IMPRESSION: 1. Mildly heterogeneous righ t renal echotexture. Correlate clinically for medical renal disease. 2. Left kidney not identifie d. Note is made that it was severely atrophic on prior exams. Consultation Notes No Data Provided for This Section Discharge Summaries No Data Provided for This Section History and Physicals No Data Provided for This Section Vital Signs Vital Sign Value Date Comments Source Systolic (mm Hg) 159 12/03/2019 [facility] Diastolic (mm Hg) 65 12/03/2019 [facility] Heart Rate 60 12/03/2019 [facility] Temperature Oral (F) 97.6 F 12/03/2019 [facility] Height 182.88 cm 12/03/2019 [facility] Weight 106.182 12/03/2019 [facility] BMI Calculated 31.75 12/03/2019 [facility] Systolic (mm Hg) 160 10/01/2019 [facility] Diastolic (mm Hg) 63 10/01/2019 [facility] Heart Rate 56 10/01/2019 [facility] Height 182.88 cm 10/01/2019 [facility] Weight 104.545 10/01/2019 [facility] BMI Calculated 31.26 10/01/2019 [facility] Systolic (mm Hg) 165 09/09/2019 [facility] Diastolic (mm Hg) 63 09/09/2019 [facility] Heart Rate 59 09/09/2019 [facility] Height 185.42 cm 09/09/2019 [facility] Weight 107.727 09/09/2019 [facility] BMI Calculated 31.33 09/09/2019 [facility] Systolic (mm Hg) 143 09/07/2019 [facility] Diastolic (mm Hg) 57 09/07/2019 [facility] Heart Rate 53 09/07/2019 [facility] Temperature Oral (F) 97.3 F 09/07/2019 [facility] Height 185.42 cm 09/07/2019 [facility] Weight 108.807 09/07/2019 [facility] BMI Calculated 31.65 09/07/2019 [facility] Temperature Oral (F) 98.0 F 09/03/2019 [place] [facility] Rate 68 09/03/2019 [facility] Rate 18 09/03/2019 [facility] Systolic (mm Hg) 135 09/03/2019 [place] Diastolic (mm Hg) 79 09/03/2019 [facility] Systolic (mm Hg) 130 09/03/2019 [place] Diastolic (mm Hg) 75 09/03/2019 [facility] Heart Rate 72 09/03/2019 [facility] Respitory Rate 16 09/03/2019 [facility] Temperature Oral (F) 98.1 F 09/03/2019 [place] Weight 106.5 09/03/2019 [place] Systolic (mm Hg) 134 08/06/2019 [facility] Diastolic (mm Hg) 59 08/06/2019 [facility] Heart Rate 61 08/06/2019 [facility] Temperature Oral (F) 98.2 F 08/06/2019 [facility] Systolic (mm Hg) 153 07/28/2019 [facility] Diastolic (mm Hg) 67 07/28/2019 [facility] Heart Rate 60 07/28/2019 [facility] Height 182.88 cm 07/28/2019 [facility] Weight 110.455 07/28/2019 [facility] BMI Calculated 33.03 07/28/2019 [facility] Temperature Oral (F) 97.5 F 07/28/2019 [facility] BMI Calculated 33.71 12/08/2018 [facility] Weight 115.909 12/08/2018 [facility] Height 185.42 cm 12/08/2018 [facility] Systolic (mm Hg) 152 11/25/2018 [facility] Diastolic (mm Hg) 67 [facility] 14 11/25/2018 [facility] Systolic (mm Hg) 110 11/25/2018 [facility] Diastolic (mm Hg) 56 11/25/[facility] Rate 24 11/25/2018 [facility] Temperature Oral (F) 97.6 F 11/25/2018 [facility] Systolic (mm Hg) 145 11/25/2018 [facility] Diastolic (mm Hg) 64 11/25/2018 [facility] Respitory Rate 18 11/25/2018 [facility] Temperature Oral (F) 97.8 F 11/25/2018 [facility] Temperature Oral (F) 97.7 F 11/25/2018 [facility] Height 182.88 cm 11/18/2018 [facility] Height 182.88 cm 11/18/2018 [facility] Weight 116.534 11/17/2018 [facility] Height 182.88 cm 11/17/2018 [facility] BMI Calculated 34.84 11/17/[address] [facility] Weight 119.1 11/14/2018 [facility] BMI Calculated 36.62 11/14/[address] [facility] BMI Calculated 34.14 10/30/2018 [facility] Weight 117.364 10/30/2018 [facility] Height 185.42 cm 10/30/2018 [facility] Height 185.42 cm 10/28/2018 [facility] BMI Calculated 34.77 10/28/2018 [facility] Weight 119.545 10/28/2018 [facility] Systolic (mm Hg) 121 10/01/2018 [facility] Diastolic (mm Hg) 70 10/01/2018 [facility] BMI Calculated 33.05 10/01/[address] [facility] Weight 113.636 10/01/2018 [facility] Height 185.42 cm 10/01/2018 [facility] Temperature Oral (F) 98.3 F 02/11/2018 [facility] Heart Rate 73 02/11/2018 [facility] Systolic (mm Hg) 115 02/11/2018 [facility] Diastolic (mm Hg) 71 02/11/2018 [facility] Systolic (mm Hg) 137 07/29/2017 [facility] Diastolic (mm Hg) 68 07/29/2017 [facility] Respitory Rate 12 07/29/2017 [facility] Heart Rate 60 07/29/2017 [facility] Temperature Oral (F) 36.7 Anya 07/29/2017 [facility] Weight Measured 117.93 07/29/2017 [facility] Height 182.42 cm 07/29/2017 [facility] Respitory Rate 18 07/29/2017 [facility] Temperature Oral (F) 36.4 Anya 07/29/2017 [facility] Systolic (mm Hg) 154 07/29/2017 [facility] Diastolic (mm Hg) 70 07/29/2017 [facility] Peripheral Pulse Rate 56 07/29/2017 [facility] Weight Measured 120 07/27/2017 [facility] Height 182.42 cm 07/27/2017 [facility] Systolic (mm Hg) 123 07/15/2017 [facility] Diastolic (mm Hg) 70 07/15/2017 [facility] Heart Rate 60 07/15/2017 [facility] Respitory Rate 16 07/15/2017 [facility] Peripheral Pulse Rate 60 07/15/2017 [facility] Systolic (mm Hg) 126 07/15/2017 [facility] Diastolic (mm Hg) 58 07/15/2017 [facility] Respitory Rate 16 07/15/2017 [facility] Temperature Oral (F) 36.1 Anya 07/15/2017 [facility] Weight Measured 120 07/15/2017 [facility] Height 182.42 cm 07/15/2017 [facility] Systolic (mm Hg) 156 08/29/2015 [facility] Diastolic (mm Hg) 77 08/29/2015 [facility] Respitory Rate 18 08/29/2015 [facility] Respitory Rate 16 08/29/2015 [facility] Systolic (mm Hg) 156 08/29/2015 [facility] [place] Diastolic (mm Hg) 76 08/29/2015 [facility] Systolic (mm Hg) 151 08/29/2015 [facility] [place] Diastolic (mm Hg) 72 08/29/2015 [facility] Respitory Rate 10 08/29/2015 [facility] Heart Rate 56 08/29/2015 [facility] Weight 116.091 08/29/2015 [facility] BMI Calculated 33.77 08/29/2015 [facility] Height 185.42 cm 08/27/2015 [facility] Temperature Oral (F) 98.2 F 11/10/2014 [place] Heart Rate 66 11/10/2014 [facility] Respitory Rate 20 11/10/2014 [facility] Diastolic (mm Hg) 70 11/10/2014 [facility] Systolic (mm Hg) 123 11/10/2014 [place] [facility] Temperature Oral (F) 98.0 F 11/10/2014 [place] Heart Rate 65 11/10/2014 [facility] Respitory Rate 18 11/10/2014 [facility] Systolic (mm Hg) 165 11/10/2014 [facility] [place] Diastolic (mm Hg) 88 11/10/2014 [facility] Heart Rate 61 11/10/2014 [facility] Respitory Rate 16 11/10/2014 [facility] Diastolic (mm Hg) 64 11/10/2014 [facility] Systolic (mm Hg) 130 11/10/2014 [place] Temperature Oral (F) 98.1 F 11/10/2014 [place] Height 185.42 cm 11/08/2014 [facility] BMI Calculated 36.09 11/08/2014 [facility] Weight 124.091 11/08/2014 [facility] Weight 124.318 11/08/2014 [facility] BMI Calculated 36.16 11/08/2014 [facility] Height 185.42 cm 11/01/2014 [facility] Temperature Oral (F) 96.8 F 05/12/2013 [facility] Weight 266 05/12/2013 [facility] Respitory Rate 16 05/12/2013 [facility] Heart Rate 67 05/12/2013 [facility] Diastolic (mm Hg) 68 05/12/2013 [facility] Systolic (mm Hg) 127 05/12/2013 [facility] Temperature Oral (F) 96.8 F 05/12/2013 [facility] Weight 266 05/12/2013 [facility] Respitory Rate 16 05/12/2013 [facility] Heart Rate 67 05/12/2013 [facility] Diastolic (mm Hg) 68 05/12/2013 [facility] Systolic (mm Hg) 127 05/12/2013 [facility] Encounters Location Location Encounter Encounter Reason Attending ADM IN Stat Source Details Type Number For Provider Date Date Visit [facility] MEDICATION [id number] 05/12 05/12 [facility] UPDATE [id number] /2012 e [facility] [id number] Group 9b5 [facility] MEDICATION [id number] 05/12 05/12 [facility] UPDATE [id number] /2012 e [facility] [id number] Group 166 [facility] MEDICATION [id number] 05/12 05/12 [facility] UPDATE [id number] /2012 e Me d [facility] [id number] Group eb6 [facility] MEDICATION [id number] 05/12 05/12 [facility] UPDATE [id number] /2012 e Me d [facility] [id number] Group 21a [facility] MEDICATION [id number] 05/12 05/12 [facility] UPDATE [id number] /2012 e [facility] [id number] Group 834 [facility] [id number] 05/25 05/25 [facility] Result [id number] /2012 e Med Group [id number] Group 387 [facility] [id number] 05/25 05/25 [facility] Result [id number] /2012 e Med Group [id number] Group 247 [facility] [id number] 05/25 05/25 [facility] Result [id number] /2012 e Med Group [id number] Group 78d [facility] [id number] 05/25 05/25 [facility] Result [id number] /2012 e Med Group [id number] Group f6e [facility] [id number] 05/25 05/25 [facility] Result [id number] /2012 e Med Group [id number] Group 2df [facility] [id number] 05/25 05/25 [facility] Result [id number] /2012 e Med Group [id number] Group 107 [facility] [id number] 05/25 05/25 [facility] Result [id number] /2012 e Med Group [id number] Group c83 [facility] [id number] 05/25 05/25 [facility] Result [id number] /2012 e Med Group [id number] Group 11e [facility] [id number] 05/25 05/25 [facility] Result [id number] /2012 e Med Group [id number] Group a70 [facility] Blood [id number] 05/29 05/29 [facility] pressure [id number] /2012 e Med [facility] [id number] Group 7f8 [facility] [id number] 05/29 05/29 [facility] pressure [id number] /2012 e Med Group [id number] Group 3d1 [facility] Blood [id number] 05/29 05/29 [facility] pressure [id number] /2012 e Med Group [id number] Group ef3 [facility] Blood [id number] 05/29 05/29 [facility] pressure [id number] /2012 e Med Group [id number] Group b44 [facility] Blood [id number] 05/29 05/29 [facility] pressure [id number] /2012 e Med Group [id number] Group 90e [facility] Blood [id number] 05/29 05/29 [facility] pressure [id number] /2012 e Med Group [id number] Group f02 [facility] [id number] 05/29 05/29 [facility] pressure [id number] /2012 e Med Group [id number] Group fbb [facility] Blood [id number] 05/29 05/29 [facility] pressure [id number] /2012 e Med Group [id number] Group 0d5 [facility] FAXED [id number] 06/08 06/08 [facility] [id number] e Me d Group [id number] Group f8e [facility] FAXED [id number] 06/08 06/08 [facility] [id number] e Me d Group [id number] Group b90 [facility] FAXED [id number] 06/08 06/08 [facility] [id number] /2012 e Me d Group [id number] Group d86 [facility] FAXED [id number] 06/08 06/08 [facility] [id number] e Me d Group [id number] Group e80 [facility] FAXED [id number] 06/08 06/08 [facility] [id number] /2012 e Me d Group [id number] Group 81b [facility] FAXED [id number] 06/08 06/08 [facility] [id number] /2012 e Me d Group [id number] Group 6f3 [facility] FAXED [id number] 06/08 06/08 [facility] [id number] /2012 e Me d Group [id number] Group e09 [facility] RF: [id number] 06/09 06/09 [facility] Amlodipine [id number] /2012 e Med Group 10 mg [id number] Group ce5 [facility] RF: [id number] 06/09 06/09 [facility] Amlodipine [id number] e Med Group 10 mg [id number] Group 50d [facility] RF: [id number] 06/09 06/09 [facility] Amlodipine [id number] /2012 e [facility] Group 10 mg [id number] Group 7fb [facility] RF: [id number] 06/09 06/09 [facility] Amlodipine [id number] /2012 e [facility] 10 mg [id number] Group 1d1 [facility] RF: [id number] 06/09 06/09 [facility] Amlodipine [id number] /2012 e [facility] 10 mg [id number] Group 46f [facility] RF: [id number] 06/09 06/09 [facility] Amlodipine [id number] /2012 e [facility] 10 mg [id number] Group ce0 [facility] RF: [id number] 06/09 06/09 [facility] Amlodipine [id number] /2012 e [facility] 10 mg [id number] Group da6 [facility] Amlodopine [id number] 09/07 09/07 [facility] Refill [id number] /2012 e Me d Group 90day [id number] Group supply f1a [facility] Amlodopine [id number] 09/07 09/07 [facility] Refill [id number] /2012 e Me d Group 90day [id number] Group supply 63f [facility] Amlodopine [id number] 09/07 09/07 [facility] Refill [id number] e Me d Group 90day [id number] Group supply fcc [facility] Amlodopine [id number] 09/07 09/07 [facility] Refill [id number] /2012 e Me d Group 90day [id number] Group supply f5d [facility] refill [id number] 10/05 10/05 Pr [facility] pravastatin [id number] /2012 e Med Group [id number] Group 5f0 [facility] refill [id number] 10/05 10/05 [facility] pravastatin [id number] /2012 e Med Group [id number] Group 5e4 [facility] refill [id number] 10/05 10/05 [facility] pravastatin [id number] /2012 e Med Group [id number] Group ce2 [facility] REFILL [id number] 12/09 12/09 Pr [facility] REQUEST [id number] e M ed Group [id number] Group 819 [facility] REFILL [id number] 12/09 12/09 [facility] REQUEST 15-4aed- e M ed Group [id number] Group 7c4 [facility] awe metrics [id number] 12/15 12/15 [facility] [id number] e Me d Group [id number] Group 9cf [facility] [id number] [place] 11/09 11/10 [facility] [place] 3 /2014 [place] [facility] [id number] [place] 05/17 Active [facility] 0 [place] [facility] [id number] NURSE 06/06 Active [facility] 1 UROLOG [place] VISIT Outpatient [id number] CHAR 08/02 Active [facility] 3 [place] Outpatient [id number] NURSE 08/08 [facility] 4 [place] [facility] Outpatient [id number] CHAR 08/25 Active [facility] 5 [place] [facility] OBS Day [id number] Char 08/29 08/29 M [facility] [place] Surgery 5 [place] Outpatient [id number] MALLORY TEYKL 09/06 Act rajan [facility] Outpt Diag [id number] Mallory Teykl 09/19 09/20 [facility] [place] Outpatient [id number] CHAR 09/27 Active [facility] 8 [place] Outpatient [id number] CHAR 01/02 Active [facility] 9 [place] Outpatient [id number] CHAR 04/03 Active [facility] 0 [place] Outpatient [id number] CHAR 07/25 Active [facility] 1 [place] [facility] [id number] CHAR 01/29 Active [facility] 2 [facility] Outpatient [id number] Rivera 07/15 07/15 Active [facility] /2016 [facility] Outpatient [id number] Rivera 07/15 07[facility]15 [facility] Outpatient [id number] Rivera 07/29 07/29 Active [facility] /2016 [facility] Outpatient [id number] Rivera 07/29 07/29 [facility] /2016 [facility] Outpatient [id number] 07/30 Acti ve [facility] [place] Outpatient [id number] 08/06 Acti ve [facility] Phone [id number] 02/03 02/05 Urology Message [facility] [place] [facility] Outpatient [id number] ROBINSON CALDWELL 02/11 [facility] [id number] Robinson [place] 02/11 02/12 [facility] Outpatient [id number] ROBINSON CALDWELL 08/19 Acti ve [facility] [place] Outpatient [id number] ROBINSON CALDWELL 08/19 Acti ve [facility] [id number] Robinson Caldwell 08/19 08/19 Urology Pre-Reg [facility] Ambulatory [id number] Robinson Caldwell 08/19 08/19 Urology Pre-Reg [facility] Outpatient [id number] Liborio 10/01 10/02 [facility] 4 [facility] Outpatient [id number] ROBINSON CALDWELL 10/28 Acti ve [facility] [id number] Robinsontrena Caldwell 10/28 10/29 Urology [facility] Outpatient [id number] Cindy 10/30 10/31 [facility] 7 [facility] Inpatient [id number] Neema 11/17 11/25 [facility] [place] 6 [place] [facility] Outpatient [id number] Neema 12/08 12/09 [facility] 9 [place] [facility] Phone [id number] 06/30 07/02 Urology Message [facility] Outpatient [id number] Robinson Caldwell 07/28 Acti ve [facility] [id number] Robinsontrena Caldwell 07/28 07/29 Urology [facility] Outpatient [id number] Robinosntrena Caldwell 08/06 Acti ve [facility] [id number] Robinson Paulette 08/06 08/07 Urology [facility] [place] Emergency [id number] Rolf 09/03 09/03 [facility] [place] 2 [place] Outpatient [id number] Mallory Teykl 09/07 Act rajan [facility] [id number] Mallory Teykl 09/07 09/08 Urology Medical [place] [facility] Outpatient [id number] Mallory Teykl 09/09 Act rajan [facility] Outpatient [id number] Mlalory Teykl 09/09 09/10 Urology Medical [place] [facility] Outpatient [id number] Robinson Paulette 10/01 Acti ve [facility] [id number] Robinson Paulette 10/01 10/02 Urology [facility] [place] [facility] Outpatient [id number] ROBINSON PAULETTE 11/03 Acti ve [facility] Ambulatory [id number] [place] 11/03 11/03 Urology Pre-Reg [facility] Outpatient [id number] Robinson [place] 12/03 Acti ve [facility] Outpatient [id number] Robinson [place] 12/03 12/04 Urology Medical [facility] Outpatient [id number] Robinson [place] 08/08 Acti ve [facility] [place] Outpatient [id number] Robinson Paulette 09/22 Acti ve [facility] [place] Procedures Procedure Code Date Perfomer [place] [address] 12/03/19 Medical post-voiding residual 20 George up urine and/or bladder capacity by ultrasound, non-imaging Cystourethroscopy 49343 10/01/20 [facility] judith (separate procedure) 19 Grou p Transurethral [id number] 08/29/20 Medical resection of prostate 15 George up,[facility], [facility] [place],[facility] [place] Operation on prostate [id number] 10/14/19 Medical 15 Group,[facility], [facility] [place],[facility] [place] Colon [id number] 10/14/19 colon Medical operation<sup>1</sup> 10 resection for Group,[facility], [facility] [place],[facility] [place] Appendectomy [id number] Medical Group,[facility] [place] Cholecystectomy [id number] Medica l Group,[facility] [place] Operation [id number] Medical Group,[facility], [place] AV - Aortic valve [id number] [facility] operation Group, [place] Bilateral extraction [id number] Medical of cataracts Group, [place] Colectomy [id number] [facility] Fistula left arm [facility] Prostate [facility] cataract surgery [facility] Assessment and Plan Assessment and Plan Date Source Extracted from:Title: Clinical Document 11/25/2018 [facility] Author: Liborio Danielson MD Date: 11/25/18 I have seen and examined the patient with the Resident/Jasmeet galvin. I agree with the findings and plans above except for the fol lowing: Pt ready for D/C. Will follow up with his primary food and beverage intern. Extracted from:Title: [place] [facility] Staff Addendum Author: Hilario Brooks MD Date: 11/18/18 Severe aortic stenosis(I35.0) My assessment, based on my own physica l examination, review and interpretation of labs and diagnostic imaging, established that the patient has the following diagnoses. Diagnoses This Visit Acutebloodlossanemia(D62) Atelectasispulmonary(J98.11) Benignessentialhypertension(I10) BPH(benignprostatichyperplasia)(N40.0) Coagulopathy(D68.9) DM(diabetesmellitus)(E11.9) ESRDonhemodialysisTTHS(N18.6) Hypoxemia(R09.02) Obesity(SQY23-10.9)(E66.9) S/PAVR(aorticvalvereplacement)Mini11/17/18(Z95.2) S/PTURP(statusposttransurethralresectionofprostate)(Z90.79) Severeaorticvalvestenosis(I35.0) Thrombocytopenia(D69.6) NEURO:Pain controlled on current multimodal regimen CVS:hemodynamics stable.Continue chest tube management. RESP:stable on minimal O2 , continue IS and VEP, no current tobacco use HEME:Hgb drop, transfuse to keep Hgb > 7. Thrombocytopenia, transfuse to keep Plt >20KNo coagulopathy. RENAL:d/c urinary catheter,continue IHD, start finasteride GI:Advance diet,continue current bowel regimen ID:SCIP Abx ENDO:Insulin gtt to keep BG less than 150 MSK:PT/OT consult DVT Prophylaxis:ELIAS Hose/SCDs in place/heparin subq GI Prophylaxis:Not Indicated DISPO:Discuss plan with family/consultants. ICU Status COMPLIANCE: 1.Restraints: No restraints. 2.Indwelling urinary catheter: Required for accurate urine output. Will remove when hemodynamics allow. 3.Central Venous Access:Central line re quired for venous access / vasopressors / dialysis 4.Arterial Access:Arterial line require d for strict hemodynamic monitoring / frequent ABG Date of service is 11/18/18. Due to the critical nature of this pat ient, I reassessed the patient multiple times prior and over the course of the day. I spent36 minutes(excluding time spent performing or supervising procedure) pr oviding and personally directing critical care services as d ocumented above. All other systems reviewed and stable. _ Hilario Brooks MD Anesthesia Critical Care Attending Extracted from:Title: Cardiothoracic Surgery Operative Note Author: Neema Vaughn MD Date: 11/17/18 PATIENT NAME Kodi Moran DATE of OPERATION: 11-17-18 PREOPERATIVE DIAGNOSIS: 1. Severe aortic stenosis 2. Bicuspid aortic valve 3. ESRD on hemodialysis 4. Diabetes 5. Anemia 6. BPH status post TURP 7. History of colectomy from colon mass POSTOPERATIVE DIAGNOSIS: Same PRIMARY SURGEON: Solomon Vaughn MD 1st SPRAY DRIER OPERATOR: Mickey Chan MD ANESTHESIOLOGISTS: Quiana Ramey MD PERFUSION Kya Sanches REFERRING CARDIOLOGISTS: Liborio Danielson MD POSTOPERATIVE DIAGNOSIS: Same OPERATION: 1. Minimally invasi ve aortic valve replacement via a right thoracotomy (5cm incision) using a #23 On-X Aortic Mechanical aortic valve 2. Rigid fixation of rib to sternum using KLS system 3. Transesophageal echocardiography FINDINGS: 1. Bicuspid aortic valve Tara Type 0 2. Visualization was adequate SPECIMENTS: 1. Aortic valve leaflets to pathology AORTIC CLAMP TIME: 52 minutes TOTAL PUMP TIME: 122 minutes LOWEST BLADDER TEMPERATURE: 31.0 C LOWEST NASOPHARYNGEAL TEMP: 30.4 C LOWEST MYOCARDIAL TEMP: -- C COOLING TIME: drift minutes WARMING TIME: 13 minutes BLOOD REQUIREMENTS: 0 units of pa cked red blood cells, 2 units cell saver; 0 units of frozen plasma, 0 units of cryo, 0 pack of platelets INDICATION: 73-year-old man with a bicuspid aortic v alve (Tara Type 0), severe symptomatic aortic stenosis, ESRD on hemodialysis, BPH status post TURP, and diabetes. Prior to the procedure, the patient and family were told the risks of the operation, including , bleeding, infection, heart attack, stroke, pneumonia, and prolonged ventilation. The STS risk score was discussed with the patient. They demonstrated adequate understanding. PROCEDURE: The patient was taken to the operating r oom, placed in the supine position. A timeout procedure was performed which confirmed the patients name, medical record number, and procedure to be perfor med. R2 pads were placed on the patient s chest. The chest, abdomen and legs were prepped and draped in the usual sterile manner. We started off by exposing the left femo ral artery and vein. Heparin was administered. A #25 dual stage venous venous catheter was placed into the femoral vein using the Selinger technique and advance d into the SVC under echo guidance. A 17 Fr Bio-Medicus was placed in the femoral artery using the Selinger technique. There was no resistance with placement. Flow to the arterial cannula was tested a nd there was good flow with appropriate pressure. We then directed our attention to the ch est incision. A 5cm right anterior thoracotomy was made at the midway point between the sternal notch and sternal body. The right internal mammary artery and ve in were ligated. The rib was divided near the sternum to aid exposure. An Pascual retractor was then introduced followed by a rib glue spreader. A 1cm working utility port was created i n the mid-clavicular line at the 7th intercostal space. The pericardium was opened along the greater curvature of the aorta down towards the inferior vena cava. A pericardial cradle was created. We th en placed a right superior pulmonary vein vent. A window was created for cross-clamp above the right pulmonary artery. Cardiopulmonary bypass was initiated. The case then proceeded in the standard fashion. After decreasing flow from the cardiopul monary bypass, the cross clamp was then placed. 1000cc of [place] Nido antegrade was then delivered at 4 degree Celsius. Once cardioplegia delivery was complete, the angiocatheter was removed. An aortotomy was made in an inverted U-shape slightly below the aortic fat pad. Silk sutures were placed both caudal and cephalad on the aor ta for exposure. Visualization of the aortic valve was adequate. The aortic valve was bicuspid (Tara Type 0). The leaflets were then excised and debri ded using scissors as well as a Rongeur. 3-0 Prolene sutures were placed on the tip of each commissure for exposure. Valve sutures were then placed along the chip ulus, first along the left cusp, right cusp, and then non-cu sp. The valve was then sized and fit a #23 O N-X Mechanical aortic valve. The ventricle was then irrigated to remove debris. The valve sutures were then passed into the ring of the valve. The valve was th en seated onto the aortic annulus. The valve was secured using CorKnot. The aorta was then closed with a 4-0 Prolene suture. De-airing was accomplished by placing the head down, increasing volume to the heart, ventilating, and through a de-airing catheter in the aorta. The cross clamp was then removed and the heart regained sinus rhythm without need for cardioversion. Having demonstrated satisfactory rate, rhythm and blood pressure, the head was slowly elevated to th e horizontal position. The patient was w eaned from bypass. Protamine sulfate was administered to reverse the anti-coagulated state. The vent in the right superior pulmonary vein was removed. A #24 Bl magalie drain was placed in the pericardium and another right-angle drain was placed in the right pleural space. We then directed our attention to the gr oin. The femoral artery and venous cannulas were removed and the defects repaired. The rib defect was re-approximated with KLS rib plates for r igid fixation. Both the chest and groin incision were c losed in 3 layers. All sponge and needle counts were correct x2 at the end of the case. The patient was transferred to the ICU i n stable condition. I was present for the entire procedure. Extracted from:Title: Operative report 11/10/2014 Latanya Ibrahim Author: Char Macedo MD Date: 11/08/14 PREOPERATIVE DIAGNOSES: Benign prostatic hypertrophy with obstruction. POSTOPERATIVE DIAGNOSES: Benign prostatic hypertrophy with obstruction. PROCEDURE: Bipolar transurethral resection of prostate. SURGEON: Char Macedo M.D. ANESTHESIA: General LMA COMPLICATIONS: None. ESTIMATED BLOOD LOSS: Less than 50 mL FINDINGS: High bladder neck and kissing lateral lo bes with excellent resection. Ureteral orifices seen and not involved. DRAINS: A 22-Moldovan three-way Laboy catheter to continuous bladder i rrigation. SPECIMENS: Prostate chips. STATEMENT OF OPERATIVE NEED: The patient is a 69-year-old male who wa s found to have a significantly enlarged prostatic lobes on cystoscopy. He is failed maximal medical therapy. The risks, benefits and alternatives to transurethr al resection of the prostate were explai janay to the patient in full detail and he provided written and verbal consent to proceed. SUMMARY OF OPERATION: The patient was taken to the operating r oom, placed supine on the operating table. After adequate general anesthesia was administered, he was given 2 grams of IV Ancef and placed in dorsolithotomy posi tion using Eddie stirrups. All pressure points were padded and sequential compression devices were placed prior to the induction of anesthesia. The patient was prepped and draped in standard surgical fashion. The resectoscope sheath was in serted using a a visual obturator through which the working element was inserted with a 90-degree loop. Evaluation of his prostate and bladder revealed a high bl adder neck and kissing lateral lobes. U reteral orifices were identified bilaterally and were well away from the level of resection. Resection started at the 6 o'clock position and was carried out from the bladder neck to the verumontan um. Resection was continued along the left lateral lobe from the 6 o'clock to 12 o'clock position in a counterclockwise fashion to the level of the simeon gical capsule. A similar resection was performed on the right lateral lobe, again carried out from the 6 o'clock to 12 o'clock position in a clockwise fashion. Once the obstructing tissue sheikh d been resected, hemostasis was ensured using the coagulation current of the electrocautery loop. Once there was good hemostasis, all the chips were evacuated using a Autumn syringe and sent for specim en labeled prostate chips. At this poin t, the bladder was ensured to be free of any other chips or clots, bleeding appeared minimal and the resectoscope sheath was removed. A 22-Moldovan three-way Laboy catheter was inserted and the balloon i nflated with 20 mL of sterile water. This was irrigated to clear manually and then continuous bladder irrigation was initiated. At this point, the patient was t aken out of dorsolithotomy position, rene aned, awakened from anesthesia, and transferred to recovery room stable and awake. Postop plan is to continue bladder irrig ation overnight and if clear in the morning, he can have his bladder irrigation stopped. Plan of Care No Data Provided for This Section Social History Social History Date Source Social History TypeResponse 12/03/2019 Jonn barrera Alcohol Past, Type Beer. Frequency: Daily.1, 2 Employment/School Status: Retired.3 Exercise Exercise frequency: 3-4 times/week. Exe rcise type: treadmill, strength training.4 Substance Abuse Use: None. Smoking Status Never smoker; Exposure to Tobacco Smoke None; Cigarette Smoking Last 365 Days No; Reg Smoking Cessation Counseling No5 entered on: 12/03/19 1beer every few cccip0ii beer in a coupl e of weeks and hardly any beer in a couple of uvmmor4fqp crnmncetuxc6azjgdbrrj training and bvqktlz5Uv changes Social History TypeResponse 11/14/2018 [facility] Substance Abuse Use: None. Exercise Exercise frequency: 3-4 times/week. Exe rcise type: treadmill, strength training.1 Employment/School Status: Retired.2 Alcohol Past, Type Beer. Frequency: Daily.3, 4 Smoking Status Never smoker; Exposure to Tobacco Smoke None; Cigarette Smoking Last 365 Days No; Reg Smoking Cessation Counseling No5 entered on: 11/17/18 1strenthgh training and nzzkhmb2lhl enfo ekperqv2ztjx every few rthdg6ae beer in a couple of weeks and hardly any beer in a couple of fguitv9Zg changes Social History TypeResponse 11/14/2018 [facility] Substance Abuse Use: None. Exercise Exercise frequency: 3-4 times/week. Exe rcise type: treadmill, strength training.1 Employment/School Status: Retired.2 Alcohol Past, Type Beer. Frequency: Daily.3, 4 Smoking Status Never smoker; Exposure to Tobacco Smoke None; Cigarette Smoking Last 365 Days No; Reg Smoking Cessation Counseling No5 entered on: 11/17/18 1strenthgh training and kcccvll9chc enfo mfpwimj3jmgn every few pggza4jg beer in a couple of weeks and hardly any beer in a couple of evqbvv5Il changes Social History TypeResponse 11/14/2018 [facility] Geremias d Alcohol Past, Type Beer. Frequency: Daily.1, 2 Employment/School Status: Retired.3 Exercise Exercise frequency: 3-4 times/week. Exe rcise type: treadmill, strength training.4 Substance Abuse Use: None. Smoking Status Never smoker; Exposure to Tobacco Smoke None; Cigarette Smoking Last 365 Days No; Reg Smoking Cessation Counseling No5 entered on: 09/02/19 1beer every few hcapr8tu beer in a coupl e of weeks and hardly any beer in a couple of robaqs2aiv gebapzrbqzb1rfruyejgu training and xwvpunc3Bz changes Social History TypeResponse 08/27/2015 [facility] [place] Substance Abuse Use: None. Exercise Exercise frequency: 3-4 times/week. Exe rcise type: treadmill, strength training.1 Employment/School Status: Retired.2 Alcohol Current, Type Beer. Frequency: Daily.3, 4 Smoking Status Never smoker; Exposure to Tobacco Smoke None; Cigarette Smoking Last 365 Days No; Reg Smoking Cessation Counseling No 1strenthgh training and xzxiigs9ska enfo ymozhfv7buyo every few teyga4pf beer in a couple of weeks and hardly any beer in a couple of months Social History ElementQualifiersDate Reported 05/12/2013 [employer] Pets: . 3 dogs, 2 cats May 12, 2013 Marital Status: . May 12, 2013 Caffeine: . frequency:, 3 cups of coffee/soda/tea per day May 12, 2013 Exercise: . 7 x per week May 12, 2013 Children: . 1 son, 1 daughter May 12, 2013 Drug use: . None May 12, 2013 Sexually active: . Yes May 12, 2013 Tobacco Use: . Are you a: Never smoked May 12, 2013 Alcohol Use: . Status: Socially May 12, 2013 Travel ouside [place]: . No May 12, 2013 Occup. exposure: . None May 12, 2013 Social History TypeResponse [facility] Family History No Data Provided for This Section Advance Directives No Data Provided for This Section Functional Status No Data Provided for This Section
--- OUTSIDE RECORDS SUMMARY | 2020-07-29 12:11 | XMS REPORT | Continuity of Care Document ---
:1945 Author Organization [facility] t Address [address] [place] [address] Care Team Providers Name Role Phone Smith DAS, Flavio Primary Care Physician Paulette Attending Clinician Zuri Platt Attending Clinician Marc Alicia Attending Clinician Terry Vaughn Attending Clinician Chip Kapadia Attending Clinician Unavailable Tomas Danielson Attending Clinician Yissel Marcelo Attending Clinician Hilario Macedo Attending Clinician Terry Vaughn Admitting Clinician Yissel Marcelo Admitting Clinician Hilario Macedo Admitting Clinician Payers Payer Name Policy Type Policy Number Effective Date Expiration Date S ource Problems Condition Condition Condition Status Onset Resolution Last Treating Co mments Source Name Details Category Date Date Treatment Clinician Date URINARY Diagnosis Active 2018-102019-09-15 Me moria RETENTION - 12:35:00 l URINARY 00:00: [place] RETENTION 00 Active 2019 LIAS Ibrahim S/P AVR/ Diagnosis Active 2018-12-08 M emoria SOB 2-21 15:19:00 l S/P AVR/ 00:00: G[place] n SOB 00 Active 12/04/[address] [facility] R14.0 Diagnosis Active 2018-10-30 Mem oria 1-11 14:43:00 l R14.0 00:00: [place] 00 Active 10/24/2018 [facility] NONRHEUMAT Diagnosis Active 2017-102018-11-20 Memoria IC AORTIC 2-20 05:24:00 l (VALVE) 00:00: [place] STENOSIS NONRHEUMAT 00 IC AORTIC (VALVE) STENOSIS Active 10/02/[address] [facility] ESRD (end ESRD (end Disease Active [place] ston stage stage 2-15 Methodi renal renal 00:00: st disease) disease) 00 on on dialysis dialysis Hypertensi Hypertensi Disease Active 2015-10 [place] on Methodi associated associated 00:00: st with with 00 chronic chronic kidney kidney disease disease due to due to type 2 type 2 diabetes diabetes mellitus mellitus BLADDER Diagnosis Active 2014-102015-08-29 Mn moria NECK 1-13 10:45:00 l CONTRACTUR BLADDER 00:00: Her garza E-N32.0 NECK 00 CONTRACTUR E-N32.0 Active 08/26/2015 [place] Malignant Problem Active 2019-12-06 Me moria tumor of 2-12 01:00:53 l prostate 00:00: [place] (disorder) Malignant 00 tumor of prostate (disorder) Active 11/25/2014 Problem 12/06/2019 [facility] 04/20/15. Medical Group,[facility], OPID [place],[facility], [place] BENIGN Diagnosis Active 2015-04-20 Mem oria PROSTATIC 1-12 10:46:00 l HYPERTROPH BENIGN 00:00: Herm chip Y WITH PROSTATIC 00 OBSTRU HYPERTROPH Y WITH OBSTRU Active 10/25/2014 [place] Benign Problem Active 2013-102019-12-06 Memor ia prostatic 0- 01:00:53 l hypertroph Benign 00:00: Herm chip with prostatic 00 outflow hypertroph obstructio with n outflow (disorder) obstructio n (disorder) Active 08/10/2014 Problem 12/06/2019 Data migrated from [facility] [employer] on 03/12/15. Medical Group,[facility], [facility] [place],[facility] [place] Finding of Problem Active 2013-102019-12-06 M emoria frequency 0-28 01:00:53 l of Finding 00:00: [place] urination of 00 (finding) frequency of urination (finding) Active 08/10/2014 Problem 12/06/2019 Data migrated from [employer] on 03/12/15. Medical Group,[facility], [facility] [place],[facility] [place] Glycosuria Problem Active 2013-102019-12-06 M emoria (finding) 0-28 01:00:53 l 00:00: [place] Glycosuria 00 (finding) Active 08/10/2014 Problem 12/06/2019 Data migrated from [employer] on 03/12/15. Medical [facility], [facility] [place],[facility] [place] Microscopi Problem Active 2013-102019-12-06 M emoria c 0-28 01:00:53 l hematuria 00:00: [place] (disorder) Microscopi 00 c hematuria (disorder) Active 08/10/2014 Problem 12/06/2019 Data migrated from [employer] on 03/12/15. Medical Group,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 Medical Group,[facility], OP[facility] [place],[facility] [place] Mixed Problem Active 2019-12-06 Memor ia hyperlipid 02-17 01:00:53 l emia Mixed 00:00: [place] (disorder) hyperlipid 00 emia (disorder) Active 02/17/2013 Problem 12/06/2019 Data migrated from [employer] on 03/12/15. Medical Group,[facility], [facility] [place],[facility], [place] hyperlipid Problem Active 2009-102014-11-12 M emoria emia(Confi 11-06 09:07:21 l rmed) 00:00: [place] hyperlipid 00 emia(Confi rmed) Active 09/06/2010 Problem 11/12/2014 [place] hypertensi Problem Active 2009-102014-11-12 M emoria on(Confirm 11-06 09:07:21 l ed) 00:00: [place] hypertensi 00 on(Confirm ed) Active 09/06/2010 Problem 11/12/2014 [place] Chest Problem 2019-04-21 Memor ia pain, 11:08:42 l unspecifie Chest Rebeca nn d pain, unspecifie d 04/21/[address] 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 Atheroscle Problem 2019-04-21 M emoria rosis of 11:08:42 l aorta [place] Atheroscle rosis of aorta 04/21/[address] [facility] Other Problem 2019-04-21 Memor ia nonspecifi 11:08:42 l c abnormal Other Rebeca nn finding of nonspecifi lung field c abnormal finding of lung field 04/21/[address] [facility] Umbilical Problem 2019-04-21 Mn moria hernia 11:08:42 l without [place] obstructio Umbilical n or hernia gangrene without obstructio n or gangrene 04/21/[address] [facility] Bilateral Problem 2019-04-21 Mn moria inguinal 11:08:42 l hernia, [place] without Bilateral obstructio inguinal n or hernia, gangrene, without not obstructio specified n or as gangrene, recurrent not specified as recurrent 04/21/[address] 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 Nicotine Problem 2019-04-21 Mem oria dependence 11:08:42 l , Nicotine G[place]ito n cigarettes dependence , , uncomplica cigarettes duane , uncomplica duane 04/21/[address] [facility] Acquired Problem 2019-04-21 Mem oria absence of 11:08:42 l other Acquired G[place] n specified absence of parts of other digestive specified tract parts of digestive tract 04/21/[address] [facility] Intestinal Problem 2019-04-21 M emoria bypass and 11:08:42 l anastomosi G[place] n s status Intestinal bypass and anastomosi s status 04/21/[address] [facility] Pupillary Problem 2017-07-17 Me moria abnormalit 04:01:45 l y, left [place] eye Pupillary abnormalit y, left eye 07/17/2017 [facility] Backache Problem Resolve 2019-12-06 Me moria (finding) d 01:00:53 l Backache G[place] n (finding) Resolved Problem 12/06/2019 Medical Group,[facility], [facility] [place],[facility], [place] Swelling Problem Resolve 2019-12-06 Me moria of lower d 01:00:53 l limb Swelling [place] n (finding) of lower limb (finding) Resolved Problem 12/06/2019 Medical Group,[facility], [facility] [place],[facility], [place] Diabetes Problem Resolve 2019-12-06 Me moria mellitus d 01:00:53 l (disorder) Diabetes He rmann mellitus (disorder) Resolved Problem 12/06/2019 Medical Group,[facility] ,[facility] [place] End stage Problem Resolve 2019-12-06 M emoria renal d 01:00:53 l disease End [place] (disorder) stage renal disease (disorder) Resolved Problem 12/06/2019 Medical Group,[facility] ,[facility], [place] Hypertensi Problem Active 2013-12-16 M emoria on 04:52:18 l [place] Hypertensi on Active Problem 4 [facility] Hyperlipem Problem Active 2013-12-16 M emoria ia 04:52:18 l [place] Hyperlipem ia Active Problem 4 [facility] Chronic Problem Active 2013-12-16 Jb zachary kidney 04:52:18 l disease, Chronic Rebeca nn stage III kidney disease, stage III Active Problem 12/16/2013 [facility] Acute Diagnosis Active 2013-07-14 Mem oria ethmoidal 04:23:16 l sinusitis Acute G[place] n ethmoidal sinusitis Active Diagnosis 07/14/2013 [facility] Benign Problem Active 2019-12-06 Memor ia prostatic 01:00:53 l hyperplasi Benign Herm chip a prostatic (disorder) hyperplasi a (disorder) Active Problem 12/06/2019 Medical Group,[facility], [facility] [place],[facility] [place] Chronic Problem Active 2019-12-06 Jb zachary back pain 01:00:53 l (disorder) Chronic Her garza back pain (disorder) Active Problem 12/06/2019 Medical Group,[facility], [facility] [place],[facility] [place] Chronic Problem Active 2019-12-06 Jb zachary renal 01:00:53 l impairment Chronic Her garza (disorder) renal impairment (disorder) Active Problem 12/06/2019 Medical Group,[facility], [facility] [place],[facility] [place] Chronic Problem Active 2019-12-06 Jb zachary kidney 01:00:53 l disease Chronic G[place]ito n stage 3 kidney (disorder) disease stage 3 (disorder) Active Problem 12/06/2019 Data migrated from [employer] on 03/12/15. Medical Group,[facility], [facility] [place],[facility] [place] Diabetes Problem Active 2019-12-06 Mem oria mellitus 01:00:53 l type 2 Diabetes G[place] n (disorder) mellitus type 2 (disorder) Active Problem 12/06/2019 Medical Group,[facility], [facility] [place],[facility] [place] Essential Problem Active 2019-12-06 Me moria hypertensi 01:00:53 l on [place] (disorder) Essential hypertensi on (disorder) Active Problem 12/06/2019 Data migrated from [facility] on 03/12/15. Medical Group,[facility], [facility] [place],[facility] [place] Hypertensi Problem Active 2019-12-06 M emoria ve 01:00:53 l disorder, [place] systemic Hypertensi arterial ve (disorder) disorder, systemic arterial (disorder) Active Problem 12/06/2019 [facility] Group,[facility], [facility] [place],[facility] [place] Hypogonadi Problem Active 2019-12-06 M emoria sm 01:00:53 l (disorder) [place] Hypogonadi sm (disorder) Active Problem 12/06/2019 Data migrated from [facility] on 03/12/15. Medical Group,[facility], [facility] [place],[facility] [place] Hypokalemi Problem Active 2019-12-06 M emoria a 01:00:53 l (disorder) [place] Hypokalemi a (disorder) Active Problem 12/06/2019 Medical Group,[facility], [facility] [place],[facility] [place] Obesity Problem Active 2019-12-06 Jb zachary (disorder) 01:00:53 l Obesity [place] (disorder) Active Problem 12/06/2019 Data migrated from [facility] on 03/12/15. Medical Group,[facility], [facility] [place],[facility], [place] Pain Problem Active 2019-12-06 Memor ia (finding) 01:00:53 l Pain [place] (finding) Active Problem 12/06/2019 Medical Group,[facility], [facility] [place],[facility] [place] Renal Problem Active 2019-12-06 Memor ia failure 01:00:53 l syndrome Renal [place] (disorder) failure syndrome (disorder) Active Problem 12/06/2019 Medical Group,[facility], [facility] [place],[facility] [place] Seasonal Problem Active 2019-12-06 Mem oria allergic 01:00:53 l rhinitis Seasonal Herm chip (disorder) allergic rhinitis (disorder) Active Problem 12/06/2019 Medical Group,[facility], [facility] [place],[facility] [place] Neoplasm Problem Active 2019-12-06 Mem oria of colon 01:00:53 l (disorder) Neoplasm He rmann of colon (disorder) Active Problem 12/06/2019 Medical Group,[facility], [facility] [place],[facility] [place] Alteration Problem Active 2019-12-06 M emoria in 01:00:53 l patterns [place] of urinary Alteration eliminatio in n patterns (finding) of urinary eliminatio n (finding) Active Problem 12/06/2019 increased frequency Medical Group,[facility], [facility] [place],[facility], [place] Cholestero Problem Active 2015-09-22 M emoria l 01:38:21 l (substance [place] n ) Cholestero l (substance ) Active Problem 09/22/2015 [facility] [place] Retention Problem Active 2019-12-06 Me moria of urine 01:00:53 l (disorder) G[place] n Retention of urine (disorder) Active Problem 12/06/2019 Medical Group, [place] Urinary Problem Active 2019-12-06 Jb zachary tract 01:00:53 l infectious Urinary Her garza disease tract (disorder) infectious disease (disorder) Active Problem 12/06/2019 Medical Group, [place] Hyperchole Problem Active 2017-07-31 M emoria sterolemia 04:01:11 l (disorder) Gatito etienne Hyperchole sterolemia (disorder) Active Problem 07/31/2017 [facility] Hyperlipid Problem Active 2017-07-31 M emoria emia 04:01:11 l (disorder) [place] Hyperlipid emia (disorder) Active Problem 07/31/2017 [facility] BPH W Diagnosis Active 2015-04-20 Mem oria URINARY 10:46:00 l OBS/LUTS BPH W [place] URINARY OBS/LUTS Active [place] Urinary Problem 2018-102019-09-04 2019-09-04 Memoria tract - 23:46:10 23:46:10 l infection, Urinary 18:00: Her garza site not tract 00 specified infection, site not specified 2019 09/04/2019 [place] Retention Problem 2018-102019-09-04 2019-09-04 Memoria of urine, - 23:46:10 23:46:10 l unspecifie 18:00: Gatito etienne d Retention 00 of urine, unspecifie d 2019 09/04/2019 [place] Abdominal Problem 2019-0 2019-05-20 2019-05-20 Memoria distension 11-05 11:17:50 11:17:50 l (gaseous) 05:03: [place] Abdominal 56 distension (gaseous) 11/05/2018 05/20/2019 [facility] Nonrheumat Problem 2017-2019-04-21 2019-04-21 Memoria ic aortic 2-25 11:08:42 11:08:42 l (valve) 04:16: [place] stenosis Nonrheumat 47 ic aortic (valve) stenosis 8 04/21/[address] [facility] Age-relate Problem 2016-2017-07-31 2017-07-31 Memoria d nuclear 0-16 04:01:11 04:01:11 l cataract, 05:00: [place] right eye Age-relate 00 d nuclear cataract, right eye 07/29/2017 07/31/2017 [facility] Age-relate Problem 2016-2017-07-17 2017-07-17 Memoria d nuclear 07-12 04:01:45 04:01:45 l cataract, 05:00: [place] left eye Age-relate 00 d nuclear cataract, left eye 7 07/17/2017 [facility] Allergies, Adverse Reactions, Alerts Allergy Allergy Status Severity Reaction(s) Onset Inactive Treating Comm ents Source Name Type Date Date Clinician No Known DA Active U 2017-10 [facility] 10[facility]21 [facility] Center No Known No Known Active Memori a Medicati Medicati l on on [place] Allergrigoberto Allergie s s Social History Social Habit Start Date Stop Date Quantity Comments Source History [facility] St[facility] Dr[facility] B[facility] Medical [address] [facility] Sex Assigned At [facility] Tobacco use and 2018-12-24 2018-12-24 Never used [facility] kes - exposure 00:00:00 00:00:00 [facility] Center Alcohol intake 2018-12-24 2018-12-[address]00 non-drinker of Medical Ce nter alcohol (finding) History SDOH 2018-12-24 2018-12-[address] [facility] - Alcohol Frequency 00:00:00 00:00:00 [facility] Center Social History 2015-08-27 2015-08-27 [facility] ermann 00:41:57 00:41:57 Pets: 2013-05-12 2013-05-12 [facility] Rebeca nn 00:00:00 00:00:00 Smoking Status Start Date Stop Date Source Never smoker [facility] Medications Ordered Filled Start Stop Current Ordering Indication Dosage Frequency Signature Comments Components Source Medication Medication Date Date Medication? Clinician (SIG) Name Name warfarin 5 2019- Yes 5 mg = 1 Mem oria mg oral 2-20 tab, PO, l tablet 19:18: Daily, # [place] 00 30 tab, 0 Refill(s) Cephalexin 2018-10 Yes 250 mg = 1 M emoria 250 MG Oral 1-27 cap, PO, l Capsule 16:46: BID, start Herm chip [Keflex] 00 the day before scope procedure, X 3 day, # 6 cap, 0 Refill(s), Pharmacy: [id number] Ciprofloxac 2018-10 Yes 500 mg = 1 Memoria in 500 MG 1-21 tab, PO, l Oral Tablet 04:20: Q24H, X 7 H ermann [Cipro] 00 day, # 7 tab, 0 Refill(s) aspirin 81 2018- Yes 81mg QD Take [address] [facility] 3-13 by [facility] - tablet 13:07: daily. Medical [facility] Center amLODIPine Yes [facility] (NORVASC) 3-04 [facility] - 10 MG 00:00: Medical tablet 00 Center warfarin Yes [facility] (COUMADIN) 2-14 [facility] - 2 MG tablet 00:00: Medica l [address] acetaminoph Yes [facility] en-codeine 2-13 [facility] - (TYLENOL 00:00: Medical #3) 300-30 00 Center mg per tablet gabapentin Yes [facility] (NEURONTIN) 2-13 [facility] - 100 MG 00:00: Medical capsule [address] rosuvastati Yes [facility] n (CRESTOR) 2-13 [facility] - 20 MG 00:00: Medical tablet [address] tamsulosin Yes [facility] (FLOMAX) 2-13 [facility] - 0.4 mg Cap 00:00: Medical 24 hr 00 Center capsule Warfarin 2018- No Notes: Memoria 2-12 Nurse to l 20:20: ensure [place] 00 documentat ion of patient education per anticoagul ation policy. Avoid large intake of vitamin-K containing foods diet. (Same As: Coumadin) WASTE: F/P - P Waste Black; E - P Waste Black DME Yes See Memoria Prescriptio 2-12 Instructio l n 16:05: ns, MISC, [place] 00 ONCE, Cardiac Rehab Phase II Dx: S/p AVR, # 1 ea, 0 Refill(s) warfarin Yes 2.5 mg = 1 Mem oria 2.5 mg oral 2-12 tab, PO, l tablet 16:05: Q5PM, # 30 Rebeca nn 00 tab, 0 Refill(s) Rosuvastati Yes 20 mg = 1 M emoria n calcium 2-12 tab, PO, l 20 MG Oral 16:05: Bedtime, # H ermann Tablet 00 30 tab, 0 [Crestor] Refill(s) Acetaminoph Yes 1 - 2 tab, Memoria en 300 MG / 2-12 PO, Q6H, l Codeine 16:05: PRN Pain, Rebeca nn Phosphate 00 X 7 day, # 30 MG Oral 50 tab, 0 Tablet Refill(s) tamsulosin Yes 0.4 mg = 1 M emoria 0.4 mg oral 2-12 cap, PO, l capsule 16:05: Daily, # Gatito n 00 30 cap, 0 Refill(s) atorvastati No 40 mg = 1 M emoria n 40 mg 2-12 tab, PO, l oral tablet 16:05: Bedtime, # [place] 00 30 tab, 0 Refill(s) Aspirin 81 Yes 81 mg = 1 Me moria MG Chewable 2-12 tab, PO, l Tablet 16:05: Daily, # [place] 00 30 tab, 0 Refill(s) metoprolol Yes 50 mg = 1 Me moria 50 mg oral 2-12 tab, PO, l tablet, 16:05: Q12H, # 60 Herm chip extended 00 tab, 0 release Refill(s) gabapentin Yes 100 mg = 1 M emoria 100 MG Oral 2-12 cap, PO, l Capsule 16:05: Q12H, # 60 Herm chip 00 cap, 0 Refill(s) gabapentin No 300 mg, 1 Me moria 300 MG Oral 2-12 cap, l Capsule 15:00: Route: PO, Herm Drug form: CAP, Daily, Dosing Weight 116.534, kg, Start date: 11/25/18 9:00:00 EMERGENCY MANAGEMENT SYSTEM DIRECTOR, Duration: 30 day, Stop date: 12/24/18 9:00:00 CDT Colchicine No Notes: 0.3 M emoria 2-12 mg = 1/2 x l 15:00: 0.6 mg tab Warfarin No Notes: [place] 2-11 Nurse to l 23:00: ensure documentat ion of patient education per anticoagul ation policy. Avoid large intake of vitamin-K containing foods diet. (Same As: Coumadin) WASTE: F/P - P Waste Black; E - P Waste Black DME Yes See [place] Addition #1 2-11 Instructio l 17:32: ns, INR Therapeuti c level: INR 2-3, # 1 ea, 0 Refill(s) metoprolol No Notes: Memor ia extended 2-11 (Same as: l release 15:00: Toprol XL) May split tab, but do not crush. tramadol No Notes: Not Mem oria hydrochlori 2-11 to exceed l de 50 MG 12:48: 400mg/day. Her garza Oral Tablet 00 (Same As: Ultram) Warfarin No Notes: [place] 2-10 Nurse to l 23:00: ensure documentat ion of patient education per anticoagul ation policy. Avoid large intake of vitamin-K containing foods diet. WASTE: F/P - P Waste Black; E - P Waste Black (Same As: Coumadin) Warfarin No Notes: [place]lyn 2-09 Nurse to l 23:00: ensure documentat ion of patient education per anticoagul ation policy. Avoid large intake of vitamin-K containing foods diet. (Same As: Coumadin) WASTE: F/P - P Waste Black; E - P Waste Black Warfarin No Notes: [place]lyn 2-08 Nurse to l 23:00: ensure documentat ion of patient education per anticoagul ation policy. Avoid large intake of vitamin-K containing foods diet. (Same As: Coumadin) WASTE: F/P - P Waste Black; E - P Waste Black colchicine No 0.6 mg, 1 Me moria 0.6 mg oral 11-21 tab, l tablet 23:00: Route: PO, Rebeca nn 00 Drug form: TAB, BID, Dosing Weight 116.534, kg, Start date: 11/21/18 17:00:00 EMERGENCY MANAGEMENT SYSTEM DIRECTOR, Duration: 30 day, Stop date: 12/21/18 9:00:00 CDT Acetaminoph No Notes: Do M emoria en 300 MG / 11-21 not exceed l Codeine 12:38: 4gm/day of Herm chip Phosphate 00 acetaminop 30 MG Oral hen. Tablet (Same as: [Tylenol Tylenol with with Codeine #3] Codeine # 3) Warfarin No Notes: Memoria 11-20 Nurse to l 23:00: ensure [place] 00 documentat ion of patient education per anticoagul ation policy. Avoid large intake of vitamin-K containing foods diet. (Same As: Coumadin) WASTE: F/P - P Waste Black; E - P Waste Black Bisacodyl No Notes: Memori a 11-20 (Same As: l 20:36: Dulcolax, [place] 00 Bisco-Lax) metoprolol No Notes: Memor ia tartrate 11-20 (Same as: l 15:56: Lopressor) [place] 00 AMIODarone No 2 mg/ml. Me moria 900 mg in 11-20 Use Glass l D5W 500 ml 15:33: Bottle or He rmann IV 900 mg + 00 Non PVC Dextrose 5% Bag "Use in Water IV 0.22 482 mL micron in-line filter" MEDICATION WASTE Product Size: 900 mg Product Wasted: ___ mg Amiodarone No 2 mg/ml. Me moria 11-20 "Recommend l 15:33: ation: Use [place] 00 an in-line filter during administra tion for continuous infusions to reduce the incidence of phlebitis" (Same as Codarone) MEDICATION WASTE Product Size: 150 mg Product Wasted: ___ mg Metoprolol No Notes: Memor ia - (Same as: l 14:39: Lopressor) [place] 00 Push over 2 minutes Lidocaine 2019-0 No Notes: Memori a Hydrochlori 2-06 (Same as: l de 10 MG/ML 18:04: Xylocaine) [place] Injectable Solution alfuzosin 2018-0 No 10 mg, Memori a extended 2-06 Route: PO, l release 16:31: Daily, Dosing Weight 116.534, kg, Priority: NOW, Start date: 11/19/18 10:31:00 EMERGENCY MANAGEMENT SYSTEM DIRECTOR, Duration: 30 day, Stop date: 12/19/18 9:00:00 EMERGENCY MANAGEMENT SYSTEM DIRECTOR Fentanyl 2018-0 No Notes: Memoria 2-06 (Same as: l 16:21: Sublimaze) Preservat rajan free. Finasteride 2018-0 No 5 mg, Memor ia 2-06 Route: PO, l 15:00: Drug form: [place] 00 TAB, Daily, Dosing Weight 116.534, kg, Start date: 11/19/18 9:00:00 EMERGENCY MANAGEMENT SYSTEM DIRECTOR, Duration: 30 day, Stop date: 12/18/18 9:00:00 EMERGENCY MANAGEMENT SYSTEM DIRECTOR Glucagon 0 No 1 mg, Memoria 11-19 Route: IM, l 13:58: Drug form: PDR/INJ, PRN, Dosing Weight 116.534, kg, PRN Blood Glucose Results, Start date: 11/19/18 7:58:00 EMERGENCY MANAGEMENT SYSTEM DIRECTOR, Duration: 30 day, Stop date: 12/19/18 7:57:00 EMERGENCY MANAGEMENT SYSTEM DIRECTOR Dextrose 2018-0 No 25 gm, 50 Jb zachary 50% Syringe 2-06 mL, Route: l 13:58: IVP, Drug Form: INJ, Dosing Weight 116.534, kg, PRN, PRN Blood Glucose Results, Start date: 11/19/18 7:58:00 EMERGENCY MANAGEMENT SYSTEM DIRECTOR, Duration: 30 day, Stop date: 12/19/18 7:57:00 EMERGENCY MANAGEMENT SYSTEM DIRECTOR Insulin 2018-0 No Notes: Memoria Lispro -06 (Same as: l 13:58: Humalog ) Roll in palms of hands gently; Do not shake `vigorousl y. "Single Patient Use Only " WASTE: F/P - Black; E - Municipal Trash Bin Stable for 28 days at room temperatur e. Expires in days from ____Date heparin No Notes: Memoria additive 2-06 Total l 25,000 unit 13:04: Concentrat [place] [14 00 ion = 50 unit/kg/hr] unit/ ml + Premix Total Diluent volume = Sodium 500 ml Chloride Send Med 0.45% 500 Request 2 mL hours prior to next bag Colchicine No 0.6 mg, 1 Me moria 0.6 MG Oral 2-06 tab, l Tablet 03:00: Route: PO, Rebeca nn 00 Drug form: TAB, BID, Dosing Weight 116.534, kg, Start date: 11/18/18 21:00:00 EMERGENCY MANAGEMENT SYSTEM DIRECTOR, Duration: 30 day, Stop date: 12/18/18 17:00:00 EMERGENCY MANAGEMENT SYSTEM DIRECTOR sennosides, No Notes: Jb zachary [facility] 8.6 MG 2-06 (Same as: l Oral Tablet 03:00: Senokot) He rmann atorvastati No Notes: Jb zachary n 2-06 (Same as: l 03:00: Lipitor) [place] heparin No Notes: Memoria sodium, 2-05 porcine l porcine 22:00: heparin [place] 2500 UNT/ML 00 Injectable Solution Cefazolin No Notes: Memori a 2-05 (Same as l 20:00: Ancef) [place] 00 Simethicone No Notes: Jb zachary 2-05 (Same as: l 19:00: Mylicon) [place] 00 Acetaminoph No Notes: Max Memoria en 2-05 acetaminop l 18:00: hen 4000 [place] 00 mg/day (4 gm/day). (Same as: Tylenol Extra Strength) Flomax No Notes: Memoria 2-05 (Same As: l 18:00: Flomax) [place] 00 "Do Not Crush" Finasteride No Notes: Jb zachary 2-05 (Same as: l 17:44: Proscar) [place] 00 "Do Not Crush" Women of childbeari ng age should not touch or handle broken tablets Oxycodone No Notes: Memori a Hydrochlori 2-05 (Same as: l de 5 MG 17:23: Roxicodone Herm chip Oral Tablet 00 ) gabapentin No Notes: Memor ia 100 MG Oral 2-05 (Same as: l Capsule 17:22: Neurontin) Herm chip 00 pantoprazol No Notes: Jb zachary e 2-05 Tablet l 15:00: should not [place] 00 be chewed or crushed. (Same as: Protonix) Docusate No Notes: Memoria 2-05 (Same as: l 15:00: Colace) [place] 00 (Do Not Crush) Miralax No Notes: Memoria 2-05 Dissolve l 15:00: in 8 oz of [place] 00 water or juice. (Same as: Miralax) Mupirocin No 1 appl, Memor ia 0.02 MG/MG 2-05 Route: l Topical 15:00: NASAL, [place] Ointment 00 BID, Drug form: OINT, Start date: 11/18/18 9:00:00 EMERGENCY MANAGEMENT SYSTEM DIRECTOR, Duration: 5 day, Stop date: 11/22/18 17:00:00 EMERGENCY MANAGEMENT SYSTEM DIRECTOR Aspirin 81 No Notes: Do Me moria MG Chewable 2-05 not crush l Tablet 15:00: or chew. [place] 00 (Same As: Ecotrin) tramadol No Notes: Not Mem oria hydrochlori 2-05 to exceed l de 50 MG 14:00: 400mg/day. Her garza Oral Tablet 00 (Same As: Ultram) Oxycodone No Notes: Memori a Hydrochlori 2-05 (Same as: l de 5 MG 09:32: Roxicodone Herm chip Oral Tablet 00 ) [facility] No Notes: Memoria 2-05 Infuse l 07:00: over 15 [place] 00 minutes Do not exceed 4gm/day of acetaminop hen MEDICATION WASTE Product Size: 1000 mg Product Wasted: ___ mg ocular No Notes: Memoria lubricant 2-05 (Same as: l 06:00: Lacri-Lube [place] 00 , Puralube, Duratears Naturale, Artificial Tears, and Tears Again ) [facility] No or = 50 Memori a 2-05 kg, Start l 06:00: date: [place] 11/18/18 0:00:00 EMERGENCY MANAGEMENT SYSTEM DIRECTOR, Duration: 1 day, Stop date: 11/18/18 18:00:00 EMERGENCY MANAGEMENT SYSTEM DIRECTOR albumin No Notes: Memoria human 5% 2-05 LOT#: l intravenous 05:26: [place] solution 00 ___ Mfg: WASTE: F/P - Red; E -Red (Same as: Albuminar) "blood product derivative " Sodium 2019- No 500 mL, Memoria Chloride 2-05 500 ml/hr, l 0.9% 05:23: Infuse [place] (Bolus) IV 00 Over: 1 hr, Route: IV, ONCE, Priority: STAT, Dosing Weight 116.534 kg, Start date: 11/17/18 23:23:00 EMERGENCY MANAGEMENT SYSTEM DIRECTOR, Stop date: 11/17/18 23:23:00 EMERGENCY MANAGEMENT SYSTEM DIRECTOR chlorhexidi No Notes: Jb zachary ne 2-05 (Same As: l gluconate 03:00: Peridex) Herm chip 1.2 MG/ML 00 Mouthwash Insulin No Notes: Memoria regular 100 2-05 Final l unit + 01:36: Concentrat Rebeca nn 00 ion 1unit/1ml WASTE: F/P - Black; E - Municipal Trash Bin Dextrose No 12.5 gm, Memor ia 50% Syringe 2-05 25 mL, l 01:36: Route: [place] 00 IVP, Drug Form: INJ, Dosing Weight 116.534, kg, PRN, PRN Blood Glucose Results, Start date: 11/17/18 19:36:00 EMERGENCY MANAGEMENT SYSTEM DIRECTOR, Duration: 30 day, Stop date: 12/17/18 19:35:00 EMERGENCY MANAGEMENT SYSTEM DIRECTOR Ofirmev No Notes: Memoria 2-05 Infuse l 01:05: over 15 [place] 00 minutes Do not exceed 4gm/day of acetaminop hen MEDICATION WASTE Product Size: 1000 mg Product Wasted: ___ mg chlorhexidi No Notes: Jb zachary ne 2-05 (Same As: l gluconate 00:58: Peridex) Herm chip 1.2 MG/ML 00 Mouthwash chlorhexidi No Notes: Jb zachary ne 2-05 (Same As: l gluconate 00:44: Peridex) Herm chip 1.2 MG/ML 00 Mouthwash Fentanyl 2018-0 No Notes: Memoria 2-05 (Same as: l 00:43: Sublimaze) [place] 00 Preservat rajan free. Albuterol 0 No Notes: Memori a 0.833 MG/ML 2-05 (Same as: l / 00:43: Duoneb) [place] Ipratropium 00 Byron 0.167 MG/ML Inhalant Solution [DuoNeb] Magnesium 2019-0 No 800 mg, Memor ia Oxide 2-05 Route: PO, l 00:26: PRN, [place] 00 Dosing Weight 116.534, kg, PRN Abnormal Lab Result, FOR ICU USE ONLY, Start date: 11/17/18 18:26:00 EMERGENCY MANAGEMENT SYSTEM DIRECTOR, Duration: 30 day, Stop date: 12/17/18 18:25:00 EMERGENCY MANAGEMENT SYSTEM DIRECTOR Calcium 2019-0 No 1 gm, Memoria Gluconate 2-05 Route: l 00:26: IVPB, PRN, [place] 00 Dosing Weight 116.534, kg, PRN Abnormal Lab Result, Start date: 11/17/18 18:26:00 EMERGENCY MANAGEMENT SYSTEM DIRECTOR, Duration: 30 day, Stop date: 12/17/18 18:25:00 EMERGENCY MANAGEMENT SYSTEM DIRECTOR, FOR ICU USE ONLY Calcium 2018-0 No 500 mg, Memoria Carbonate 2-05 Route: PO, l 500 MG 00:26: PRN, [place] Chewable 00 Dosing Tablet Weight 116.534, kg, PRN Abnormal Lab Result, FOR ICU USE ONLY, Start date: 11/17/18 18:26:00 EMERGENCY MANAGEMENT SYSTEM DIRECTOR, Duration: 30 day, Stop date: 12/17/18 18:25:00 EMERGENCY MANAGEMENT SYSTEM DIRECTOR potassium 2019-0 No 2 pkt, Memori a phosphate-s 2-05 Route: PO, l odium 00:26: Dosing [place] phosphate 00 Weight 250 mg-280 116.534, mg-160 mg kg, PRN, oral powder PRN for Abnormal reconstitut Lab ion Result, FOR ICU USE ONLY, Start date: 11/17/18 18:26:00 EMERGENCY MANAGEMENT SYSTEM DIRECTOR, Duration: 30 day, Stop date: 12/17/18 18:25:00 EMERGENCY MANAGEMENT SYSTEM DIRECTOR Magnesium 2019-0 No 2 gm, Memoria Sulfate 2-05 Route: l 00:26: IVPB, PRN, [place] 00 Dosing Weight 116.534, kg, PRN Abnormal Lab Result, Start date: 11/17/18 18:26:00 EMERGENCY MANAGEMENT SYSTEM DIRECTOR, Duration: 30 day, Stop date: 12/17/18 18:25:00 EMERGENCY MANAGEMENT SYSTEM DIRECTOR, FOR ICU USE ONLY potassium 2019-0 No 15 mmol, Jb zachary phosphate 2-05 Route: l 00:26: IVPB, PRN, Dosing Weight 116.534, kg, PRN Abnormal Lab Result, Start date: 11/17/18 18:26:00 EMERGENCY MANAGEMENT SYSTEM DIRECTOR, Duration: 30 day, Stop date: 12/17/18 18:25:00 EMERGENCY MANAGEMENT SYSTEM DIRECTOR, FOR ICU USE ONLY sodium 2019- No 15 mmol, Memoria phosphate 2-05 Route: l 00:26: IVPB, PRN, Dosing Weight 116.534, kg, PRN Abnormal Lab Result, Start date: 11/17/18 18:26:00 EMERGENCY MANAGEMENT SYSTEM DIRECTOR, Duration: 30 day, Stop date: 12/17/18 18:25:00 EMERGENCY MANAGEMENT SYSTEM DIRECTOR, FOR ICU USE ONLY Potassium 2019- No 20 mEq, Memor ia Chloride 2-05 Route: PO, l 00:26: Drug form: ERTAB, PRN, Dosing Weight 116.534, kg, PRN Abnormal Lab Result, Start date: 11/17/18 18:26:00 EMERGENCY MANAGEMENT SYSTEM DIRECTOR, Duration: 30 day, Stop date: 12/17/18 18:25:00 EMERGENCY MANAGEMENT SYSTEM DIRECTOR, FOR ICU USE ONLY Stimate 2019- No Route: IV, Jb zachary (ANES) 4 2-04 Drug Form: l microgram 23:23: INJ, Start date: 11/17/18 17:23:00 EMERGENCY MANAGEMENT SYSTEM DIRECTOR, Stop date: 11/17/18 18:23:00 EMERGENCY MANAGEMENT SYSTEM DIRECTOR protamine 2019-0 No Route: IV, Me moria (ANES) 10 2-04 Drug form: l mg 23:06: INJ, Start date: 11/17/18 17:06:00 EMERGENCY MANAGEMENT SYSTEM DIRECTOR, Stop date: 11/17/18 18:06:00 EMERGENCY MANAGEMENT SYSTEM DIRECTOR calcium 2019-0 No Route: IV, Jb zachary chloride 2-04 Drug form: l (ANES) 23:03: INJ, ONCE, Rebeca Stop date: 11/17/18 17:03:00 EMERGENCY MANAGEMENT SYSTEM DIRECTOR heparin 2019-0 No Route: IV, Jb zachary (ANES) 2- Drug form: l 21:08: INJ, ONCE, Stop date: 11/17/18 15:08:00 EMERGENCY MANAGEMENT SYSTEM DIRECTOR lidocaine 2019-0 No Route: IV, Me moria (ANES) 2- Drug form: l 21:03: INJ, ONCE, Stop date: 11/17/18 15:03:00 EMERGENCY MANAGEMENT SYSTEM DIRECTOR propofol 2019-0 No Route: IV, Mem oria (ANES) 2- Drug form: l 20:44: INJ, ONCE, Stop date: 11/17/18 14:44:00 EMERGENCY MANAGEMENT SYSTEM DIRECTOR fentaNYL 2019-0 No Route: IV, Mem oria (ANES) 2- Drug form: l 20:44: INJ, ONCE, Stop date: 11/17/18 14:44:00 EMERGENCY MANAGEMENT SYSTEM DIRECTOR rocuronium 2019-0 No Route: IV, M emoria (ANES) 2- Drug form: l 20:44: INJ, ONCE, Stop date: 11/17/18 14:44:00 EMERGENCY MANAGEMENT SYSTEM DIRECTOR midazolam 2019-0 No Route: IV, Me moria (ANES) 2- Drug form: l 20:44: SOLN, ONCE, Stop date: 11/17/18 14:44:00 EMERGENCY MANAGEMENT SYSTEM DIRECTOR ceFAZolin 2019-0 No Route: IV, Me moria (ANES) 2- Drug form: l 20:38: INJ, ONCE, Stop date: 11/17/18 14:38:00 EMERGENCY MANAGEMENT SYSTEM DIRECTOR norepinephr 2019-0 No Route: IV, Memoria ine (ANES) 2- Drug form: l 10 20:35: INJ, Start [place] microgram 00 date: 11/17/18 14:35:00 EMERGENCY MANAGEMENT SYSTEM DIRECTOR, Stop date: 11/17/18 15:35:00 EMERGENCY MANAGEMENT SYSTEM DIRECTOR vancomycin 2019-0 No Route: IV, M emoria (ANES) 1000 2- Drug form: l mg 20:05: INJ, Start [place] 00 date: 11/17/18 14:05:00 EMERGENCY MANAGEMENT SYSTEM DIRECTOR, Stop date: 11/17/18 15:05:00 EMERGENCY MANAGEMENT SYSTEM DIRECTOR tranexamic 2019-0 No Route: IV, M emoria acid (ANES) 2- Drug form: l 10 mg 20:00: INJ, Start Gatito n 00 date: 11/17/18 14:00:00 EMERGENCY MANAGEMENT SYSTEM DIRECTOR, Stop date: 11/17/18 15:00:00 EMERGENCY MANAGEMENT SYSTEM DIRECTOR Exparel No Notes: Memoria 2-04 (Same as: l 20:00: Exparel) [place] 00 NOT FOR IV use Postoperat rajan analgesia: Infiltrati on (local): Dose is based on surgical site and volume required to cover the area (in general, the maximum total dose is 266 mg). Bunionecto my: 7 mL into the tissues surroundin g the osteotomy and 1 mL into the subcutaneo us tissue of the surgical site (total dose = 8 mL [106 mg]) Hemorrhoid ectomy: 30 mL (20 mL vial diluted with 10 mL NS) divided and administer ed as 6 injections of 5 mL each (total dose = 30 mL [266 mg]) Lactated No Route: IV, Mem oria Ringers 2-04 Total l Injection 19:40: Volume: Rebeca nn IV (ANES) 00 500, Start 500 mL date: 11/17/18 13:40:00 EMERGENCY MANAGEMENT SYSTEM DIRECTOR, Stop date: 11/17/18 14:40:00 EMERGENCY MANAGEMENT SYSTEM DIRECTOR Isolyte S No Route: IV, Me moria PH 7.4 2-04 Total l (ANES) 1000 19:16: Volume: Her garza mL 00 1,000, Start date: 11/17/18 13:16:00 EMERGENCY MANAGEMENT SYSTEM DIRECTOR, Stop date: 11/17/18 14:16:00 EMERGENCY MANAGEMENT SYSTEM DIRECTOR Amylases No 1 cap, PO, Mem oria 64010 UNT / 2-01 TID, 0 l Endopeptida 17:00: Refill(s) H ermann [place] 25690 00 UNT / Lipase 01773 UNT Delayed Release Oral Capsule [Zenpep] rifaximin No 550 mg = 1 Me moria 550 MG Oral 2-01 tab, PO, l Tablet 17:00: BID, 0 [place] [XIFAXAN] 00 Refill(s) Lidocaine Yes 1 appl, Memor ia 25 MG/ML / 2-01 TOP, ONCE, l Prilocaine 17:00: # 30 gm, 0 H ermann 25 MG/ML 00 Refill(s) Topical Cream metoprolol Yes Q.5D 2 (two) [facility] (L[facility]ESSOR) 1-31 times [facility] - 50 MG 00:00: daily. [facility] tablet 00 Center Levofloxaci No 250 mg = 1 Memoria n 250 MG 1-15 tab, PO, l Oral Tablet 20:39: Q48H, # 3 H ermann [Levaquin] 00 tab, 0 Refill(s), [facility] No 500 mg = 1 Memoria oxyhydroxid 2-19 tab, PO, 0 l e 500 MG 16:52: Refill(s) Herm chip Chewable 00 Tablet [Velphoro] gabapentin 2017-10 No 300 mg = 1 M emoria 300 MG Oral 2-19 cap, PO, l Capsule 16:52: Daily, # Gatito n 00 90 cap, 0 Refill(s) Misc 2016-10 No 200 mL, Memoria Medication 0-16 Soln-IV, l 18:03: IV, Once, [place] 00 first dose 07/29/17 13:03:00 CDT, stop date 07/29/17 13:03:00 CDT fentaNYL 2016-10 No 50 mcg = 1 Mem oria 0-16 mL, l 17:55: Injection, [place] 00 IV, Once, first dose 07/29/17 12:55:00 CDT, stop date 07/29/17 12:55:00 CDT midazolam 2016-10 No 1 mg = 1 Jb zachary 0-16 mL, l 17:55: Injection, [place] 00 IV, Once, first dose 07/29/17 12:55:00 CDT, stop date 07/29/17 12:55:00 CDT fentaNYL 2016-10 No 50 mcg = 1 Mem oria 0-16 mL, l 17:44: Injection, [place] 00 IV, Once, first dose 07/29/17 12:44:00 CDT, stop date 07/29/17 12:44:00 CDT midazolam 2016-10 No 1 mg = 1 Jb zachary 0-16 mL, l 17:43: Injection, [place] 00 IV, Once, first dose 07/29/17 12:43:00 CDT, stop date 07/29/17 12:43:00 CDT ondansetron 2016-10 No 4 mg = 2 Me moria 0-16 mL, l 17:43: Injection, [place] 00 IV, Once, first dose 07/29/17 12:43:00 CDT, stop date 07/29/17 12:43:00 CDT Ethyl 2016-10 No 1 sprays, Memoria Chloride 1 0-16 [place], l ML/ML 17:00: TOP, Once, Gat[place] n Topical 00 first dose [place] 07/29/17 12:00:00 CDT, stop date 07/29/17 12:00:00 CDT Povidone-Io 2016-10 No 1 drops, Me moria dine 50 0-16 Soln, l MG/ML 17:00: Eye-Operat [place] Ophthalmic 00 rajan, Once, Solution first dose [Betadine] 07/29/17 12:00:00 CDT, stop date 07/29/17 12:00:00 CDT LR 500 mL 2016-10 No 500 mL, Memor ia 0-16 IV, 100 l 16:55: mL/hr, [place] 00 start date 07/29/17 11:55:00 CDT, Adult Eye Procedures or Pain Phenylephri 2016-10 No 1 drops, Me moria ne 0-16 Soln, l Hydrochlori 16:55: Eye-Operat [place] de 25 MG/ML 00 rajan, Ophthalmic q5min, Solution order duration: 3 doses, first dose 07/29/17 11:55:00 CDT, stop date 07/29/17 12:09:00 CDT Tetracaine 2016-10 No 1 drops, Mem oria hydrochlori 0-16 Soln, l de 5 MG/ML 16:55: Eye-Operat H ermann Ophthalmic 00 rajan, Solution q5min, order duration: 3 doses, first dose 07/29/17 11:55:00 CDT, stop date 07/29/17 12:09:00 CDT moxifloxaci 2016-10 No 1 drops, Me moria n 5 MG/ML 0-16 Soln, l Ophthalmic 16:55: Eye-Operat H ermann Solution 00 rajan, q5min, order duration: 3 doses, first dose 07/29/17 11:55:00 CDT, stop date 07/29/17 12:09:00 CDT Tropicamide 2016-10 No 1 drops, Me moria 10 MG/ML 0-16 Soln, l Ophthalmic 16:55: Eye-Operat H ermann Solution 00 rajan, q5min, order duration: 3 doses, first dose 07/29/17 11:55:00 CDT, stop date 07/29/17 12:09:00 CDT NS 500 mL 2016-10 No 500 mL, Memor ia 0-16 IV, 50 l 16:54: mL/hr, start date 07/29/17 11:54:00 CDT, Renal Disease Misc 2016-10 No 200 mL, Memoria Medication 0-02 Soln-IV, l 16:27: IV, Once, first dose 07/15/17 11:27:00 CDT, stop date 07/15/17 11:27:00 CDT midazolam 2016-10 No 1 mg = 1 Jb zachary 0-02 mL, l 16:06: Injection, [place] 00 IV, Once, first dose 07/15/17 11:06:00 CDT, stop date 07/15/17 11:06:00 CDT fentaNYL 2016-10 No 50 mcg = 1 Mem oria 0-02 mL, l 16:06: Injection, [place] IV, Once, first dose 07/15/17 11:06:00 CDT, stop date 07/15/17 11:06:00 CDT midazolam 2016-10 No 1 mg = 1 Jb zachary 0-02 mL, l 16:00: Injection, [place] 00 IV, Once, first dose 07/15/17 11:00:00 CDT, stop date 07/15/17 11:00:00 CDT fentaNYL 2016-10 No 50 mcg = 1 Mem oria 0-02 mL, l 16:00: Injection, [place] 00 IV, Once, first dose 07/15/17 11:00:00 CDT, stop date 07/15/17 11:00:00 CDT ondansetron 2016-10 No 4 mg = 2 Me moria 0-02 mL, l 16:00: Injection, [place] 00 IV, Once, first dose 07/15/17 11:00:00 CDT, stop date 07/15/17 11:00:00 CDT Ethyl 2016-10 No 1 sprays, Memoria Chloride 1 0-02 [place], l ML/ML 15:00: TOP, Once, Gat[place] n Topical 00 first dose [place] 07/15/17 10:00:00 CDT, stop date 07/15/17 10:00:00 CDT Povidone-Io 2016-10 No 1 drops, Me moria dine 50 0-02 Soln, l MG/ML 15:00: Eye-Operat [place] Ophthalmic 00 rajan, Once, Solution first dose [Betadine] 07/15/17 10:00:00 CDT, stop date 07/15/17 10:00:00 CDT NS 500 mL 2016-10 No 500 mL, Memor ia 0-02 IV, 75 l 14:58: mL/hr, [place] 00 start date 07/15/17 9:58:00 CDT Phenylephri 2016-10 No 1 drops, Me moria ne 0-02 Soln, l Hydrochlori 14:45: Eye-Operat [place] de 25 MG/ML 00 rajan, Ophthalmic q5min, Solution order duration: 3 doses, first dose 07/15/17 9:45:00 CDT, stop date 07/15/17 9:59:00 CDT moxifloxaci 2016-10 No 1 drops, Me moria n 5 MG/ML 0-02 Soln, l Ophthalmic 14:45: Eye-Operat H ermann Solution 00 rajan, q5min, order duration: 3 doses, first dose 07/15/17 9:45:00 CDT, stop date 07/15/17 9:59:00 CDT Tropicamide 2016-10 No 1 drops, Me moria 10 MG/ML 0-02 Soln, l Ophthalmic 14:45: Eye-Operat H ermann Solution 00 rajan, q5min, order duration: 3 doses, first dose 07/15/17 9:45:00 CDT, stop date 07/15/17 9:59:00 CDT Tetracaine 2016-10 No 1 drops, Mem oria hydrochlori 0-02 Soln, l de 5 MG/ML 14:45: Eye-Operat H ermann Ophthalmic 00 rajan, Solution q5min, order duration: 3 doses, first dose 07/15/17 9:45:00 CDT, stop date 07/15/17 9:59:00 CDT LR 500 mL 2016-10 No 500 mL, Memor ia 0-02 IV, 100 l 14:44: mL/hr, [place] 00 start date 07/15/17 9:44:00 CDT, Adult Eye Procedures or Pain Lidocaine Yes joaquin, TOP, Mem oria Hydrochlori 9-30 TID, 0 l de 0.005 17:24: Refill(s) Herm chip MG/MG 00 Topical Gel gabapentin Yes 300 mg = 1 M emoria 300 MG Oral 9-30 caps, l Capsule 17:24: Oral, [place] [Neurontin] 00 Daily, 0 Refill(s) finasteride Yes 5 mg = 1 Me moria 5 mg oral 9-30 tabs, l tablet 17:24: Oral, [place] 00 Daily, 0 Refill(s) Metoprolol Yes 50 mg, Memor ia 9-30 Oral, BID, l 17:23: 0 [place] 00 Refill(s) alfuzosin Yes 10 mg = 1 Mem oria 10 mg oral 9-30 tabs, l tablet, 17:23: Oral, [place] extended 00 Daily, 0 release Refill(s) Lovastatin Yes 10 mg, Memor ia 9-30 Oral, l 17:22: Daily, 0 [place] 00 Refill(s) amLODIPine Yes 10 mg = 1 Me moria 10 mg oral 9-30 tabs, l tablet 17:22: Oral, [place] 00 Daily, 0 Refill(s) metoprolol 2015-10 Yes 50mg Q.5D Take 50 mg [place] tartrate 0-28 by mouth 2 Metho di (LOPRESSOR) 15:43: (two) st 50 MG 15 times a tablet day. alfuzosin 2015-10 Yes 10mg QD Take 10 mg [place] (UROXATRAL) 0-28 by mouth Meth tori 10 mg 24 hr 15:43: daily. st tablet 15 finasteride 2015-10 Yes 5mg QD Take 5 mg [place] (PROSCAR) 5 0-28 by mouth Meth tori mg tablet 15:43: daily. st 15 rosuvastati 2015-10 Yes 10mg QD Take 10 mg [place] n (CRESTOR) 0-28 by mouth Meth tori 10 MG 15:43: daily. st tablet 15 amLODIPine 2015-10 Yes 10mg QD Take 10 mg [place] (NORVASC) 0-28 by mouth Method i 10 MG 15:43: daily. st tablet 15 lidocaine 5 2015-10 Yes 5% QD Apply 5 % [place] % cream 0-28 topically Methodi 15:43: daily. st 15 M-W-F Ondansetron 2014-10 No Notes: Jb zachary -16 (Same as: l 22:27: Zofran) [place] 00 MEDICATION WASTE Product Size: 4 mg Product Wasted: ___ mg Calcium 2014-10 No 1,000 mL, Memor ia Chloride 10-29 Rate: 125 l 0.0014 22:27: ml/hr, [place] MEQ/ML / 00 Infuse Potassium over: 8 Chloride hr, Route: 0.004 IV, Dosing MEQ/ML / Weight Sodium 116.091 Chloride kg, Total 0.103 Volume: MEQ/ML / 1,000, Sodium Start Lactate date: 0.028 08/29/15 MEQ/ML 16:27:00, Injectable Duration: Solution 30 day, Stop date: 09/28/15 16:26:00 Labetalol 2014-10 No Notes: Memori a -16 (Same as: l 22:27: Normodyne, Trandate) Push over 2 minutes Give bolus over 2-3 minutes. Acetaminoph 2014-10 No Notes: Jb zachary en 10-29 Infuse l 22:27: over 15 00 minutes Do not exceed 4gm/day of acetaminop hen MEDICATION WASTE Product Size: 1000 mg Product Wasted: ___ mg Naloxone 2014-10 No Notes: Memoria -16 Same as l 22:27: Narcan Flumazenil 2014-10 No Notes: Memor ia -16 (Same as: l 22:27: Romazicon) Fentanyl 2014-10 No Notes: Memoria -16 (Same as: l 22:27: Sublimaze) Preservat rajan free. Ketorolac 2014-10 No 4 days Memor ia -16 l 22:27: MEDICATION [place] WASTE Product Size: 30 mg Product Wasted: ___ mg Morphine 2014-10 No Notes: Memoria -16 (Same l 22:27: as:MORPhin [place] 00 e Sulfate) Hydromorpho 2014-10 No Notes: Jb zachary ne 10-29 (Same as: l 22:27: Dilaudid) [place] 00 Oxycodone 2014-10 No Notes: Memori a -16 (Same as: l 22:27: Roxicodone ) Ciprofloxac 2014-10 Yes 250 mg = 1 Memoria in 250 MG -16 tab, PO, l Oral Tablet 21:20: Q24H, # 7 H ermann [Cipro] 00 tab, 0 Refill(s) tramadol 2014-10 Yes 1 - 2 Memoria hydrochlori 1-16 tabs, PO, l de 50 MG 21:20: Q4-6H, PRN Her garza Oral Tablet 00 Pain Score [Ultram] 6-10, X 4 day, # 30 tab, 0 Refill(s) Docusate 2014-10 Yes 100 mg = 1 Mem oria Sodium 100 -16 cap, PO, l MG Oral 21:20: BID, PRN Gatito n Capsule 00 Constipati [Colace] on, # 60 cap, 0 Refill(s) Acetaminoph 2014-10 No Notes: Jb zachary en 325 MG / 10-29 (Same as: l Hydrocodone 21:18: [place] Rebeca nn Bitartrate 00 325/5) Do 5 MG Oral not exceed Tablet 4gm/day of acetaminop hen. Morphine 2014-10 No Notes: Memoria - (Same l 21:18: as:MORPhin [place] 00 e Sulfate) Calcium 2014-10 No 1,000 mL, Memor ia Chloride 10-29 Rate: 25 l 0.0014 18:54: ml/hr, MEQ/ML / 00 Infuse Potassium over: 40 Chloride hr, Route: 0.004 IV, Dosing MEQ/ML / Weight Sodium 118.182 Chloride kg, Total 0.103 Volume: MEQ/ML / 1,000, Sodium Start Lactate date: 0.028 08/29/15 MEQ/ML 12:54:00, Injectable Duration: Solution 30 day, Stop date: 09/28/15 12:53:00 BD Normal 2014-10 No Notes: Memori a Saline 1-16 (Same as: l Flush 12:00: BD [place] 00 Posiflush) Cipro 2014-10 No Notes: Do Memoria 1-16 not l 12:00: refrigerat [place] 00 e 168 HR 2014-10 Yes 1 patch, Memoria Clonidine 1-14 TOP, 0 l 0.43073 00:36: Refill(s) Rebeca nn MG/HR 00 Transdermal Patch Crestor 2014-10 Yes PO, Memoria 1-14 Bedtime, 0 l 00:35: Refill(s) [place] 00 ALFUZOSIN No ALFUZOSIN Mem oria ER 10MG TAB 11-10 ER 10MG l 00:00: TAB, 1 [place] 00 tab, Drug form: MISC, Route: PO, QPM, 11/09/14 18:00:00, Duration: 30 day, Stop date: 12/09/14 17:00:00 pneumococca No 0.5 ml, Mem oria l capsular 11-09 Route: IM, l polysacchar 15:52: ONCALL, Her garza tangela type 1 57 Start vaccine / date: pneumococca 11/09/14 l capsular 9:52:57, polysacchar Stop date: tangela type 12/09/14 10A vaccine 9:47:57 / pneumococca l capsular polysacchar tangela type 11A vaccine / pneumococca l capsular polysacchar tangela type 12F vaccine / pneumococca l capsular polysacchar Januvia No 100 mg, Memoria 11-09 Route: PO, l 15:00: Drug form: [place] 00 TAB, Daily, Dosing Weight 124.318, kg, Start date: 11/09/14 9:00:00, Duration: 30 day, Stop date: 12/08/14 9:00:00 Livalo No 4 mg, Memoria 11-09 Route: PO, l 15:00: Drug form: [place] 00 TAB, Daily, Dosing Weight 124.318, kg, Start date: 11/09/14 9:00:00, Duration: 30 day, Stop date: 12/08/14 9:00:00 Prinivil No Notes: Memoria 1-27 (Same as: l 15:00: Prinivil, [place] Zestril) Avodart No Notes: [facility]oria 11-09 Non-Formul l 15:00: [facility]. [place] (Same As: Avodart) (Do Not Crush) benazepril No 40 mg, Memor ia 11-09 Route: PO, l 15:00: Drug form: [place] 00 TAB, Daily, Dosing Weight 124.318, kg, Start date: 11/09/14 9:00:00, Duration: 30 day, Stop date: 12/08/14 9:00:00 Amlodipine No Notes: Memor ia 11-09 (Same as: l 15:00: Norvasc) alfuzosin No 10 mg, Memori a 11-09 Route: PO, l 15:00: Drug form: ERTAB, Daily, Dosing Weight 124.318, kg, Start date: 11/09/14 9:00:00, Duration: 30 day, Stop date: 12/08/14 9:00:00 Losartan No Notes: Memoria 11-09 (Same as: l 15:00: Cozaar) metoprolol No Notes: Memor ia extended 11-09 (Same as: l release 15:00: Toprol XL) Herm chip May split tab, but do not crush. Ciprofloxac Yes 250 mg = 1 Memoria in 250 MG 11-09 tab, PO, l Oral Tablet 13:27: Q12H, # 6 H ermann [Cipro] 00 tab, 0 Refill(s) Phenazopyri Yes 200 mg = 1 Memoria dine 27 tab, PO, l hydrochlori 13:27: TID, # 9 He rmann de 200 MG 00 tab, 0 Oral Tablet Refill(s) [Pyridium] Docusate Yes 100 mg = 1 Mem oria Sodium 100 -27 cap, PO, l MG Oral 13:27: BID, [place] Capsule 00 Constipati [Colace] on, # 20 cap, 0 Refill(s) tramadol Yes 1 - 2 Memoria hydrochlori -27 tabs, PO, l de 50 MG 13:27: Q4-6H, as Herm chip Oral Tablet 00 needed for [Ultram] pain, # 30 tab, 0 Refill(s) Labetalol No Notes: Memori a 11-09 (Same as: l 05:26: Normodyne, Trandate) Push over 2 minutes Give bolus over 2-3 minutes. Hydralazine No Notes: Jb zachary 11-09 (Same as: l 05:26: Apresoline ) Push over 5 minutes Famotidine No Notes: Memor ia 11-09 (Same as: l 03:00: Pepcid) Ciprofloxac No Notes: Do M emoria in 10 MG/ML 11-09 not l Injectable 03:00: refrigerat H ermann Solution e Pravachol No Notes: Memori a 11-09 (Same as: l 03:00: Pravachol) Docusate No Notes: Memoria Sodium 100 11-08 (Same as: l MG Oral 23:00: Colace) [place] Capsule (Do Not Crush) Glipizide 5 No Notes: Jb zachary MG Oral 11-08 (Same as: l Tablet 23:00: Glucotrol) Rebeca nn 30 min before meals. montelukast No Notes: Jb zachary - (Same l 23:00: as:Singula ir) 10 ML No Notes: Memoria Cefazolin - (Same As: l 100 MG/ML 22:00: Gatito Motley n Prefilled 00 Kefzol) Syringe Insulin, No Notes: [facility] Aspart, 11-08 Roll in l Human 21:45: palms of hands gently; Do not shake vigorously . (Same as: NovoLOG) "single patient use only" Stable for 28 days at room temperatur e. Expires in days from ____Date Dextrose No 25 gm, 50 Jb zachary 50% Syringe 1-26 mL, Route: l 21:45: IVP, Drug Form: INJ, Dosing Weight 124.318, kg, PRN, PRN Blood Glucose Results, Start date: 11/08/14 15:45:00, Duration: 30 day, Stop date: 12/08/14 15:44:00 Glucagon No 1 mg, Memoria 11-08 Route: IM, l 21:45: Drug form: [place] 00 PDR/INJ, PRN, Dosing Weight 124.318, kg, PRN Blood Glucose Results, Start date: 11/08/14 15:45:00, Duration: 30 day, Stop date: 12/08/14 15:44:00 Aspirin 81 No 81 mg = 1 Me moria MG Enteric 1-26 tab, PO, l Coated 21:43: Daily, # 0 Rebeca nn Tablet 00 tab, 0 Refill(s) amLODIPine Yes 10 mg = 1 Me moria 10 mg oral 1-26 tab, PO, l tablet 21:43: Daily, # [place] 00 30 tab, 0 Refill(s) montelukast Yes 10 mg = 1 M emoria 10 mg oral 1-26 tab, PO, l tablet 21:43: Bedtime, # Rebeca nn 00 30 tab, 0 Refill(s) benazepril Yes 40 mg = 1 Me moria 40 mg oral 1-26 tab, PO, l tablet 21:43: Daily, # [place] 00 30 tab, 0 Refill(s) alfuzosin Yes 10 mg = 1 Mem oria 10 mg oral 1-26 tab, PO, l tablet, 21:43: Daily, # [place] extended 00 30 tab, 0 release Refill(s) metoprolol Yes 50 mg = 1 Me moria tartrate 50 -26 tab, PO, l mg oral 21:43: Daily, # [place] tablet 00 180 tab, 0 Refill(s) sitagliptin Yes 100 mg = 1 [facility] 100 MG Oral 1-26 tab, PO, l Tablet 21:43: Daily, # [place] [Januvia] 00 30 tab, 0 Refill(s) losartan Yes 100 mg = 1 Mem oria 100 mg oral 1-26 tab, PO, l tablet 21:43: Daily, # [place] 00 30 tab, 0 Refill(s) Glipizide 5 Yes 5 mg = 1 Me moria MG Oral 11-08 tab, PO, l Tablet 21:43: BID, # 30 [place] 00 tab, 0 Refill(s) pitavastati Yes 4 mg = 1 Me moria n 4 MG Oral 11-08 tab, PO, l Tablet 21:43: Daily, 0 [place] [Livalo] 00 Refill(s) Dutasteride Yes 0.5 mg = 1 [facility] 0.5 MG Oral 11-08 cap, PO, l Capsule 21:43: Daily, # [place] [Avodart] 00 30 cap, 0 Refill(s) Irrigation No Notes: For M emoria w/ Normal 11-08 irrigation l Saline 19:18: only. Flumazenil No Notes: Memor ia 11-08 (Same as: l 17:35: Romazicon) Naloxone No Notes: [facility] 11-08 Same as l 17:35: Narcan Ondansetron No Notes: Jb zachary 11-08 (Same as: l 17:35: Zofran) Dexamethaso No Notes: Jb zachary ne 11-08 Concentrat l 17:35: ion: 4mg/ml Calcium No 1,000 mL, Memor ia Chloride 11-08 Rate: 125 l 0.0014 17:35: ml/hr, [place] MEQ/ML / 00 Infuse Potassium over: 8 Chloride hr, Route: 0.004 IV, Dosing MEQ/ML / Weight Sodium 124.318 Chloride kg, Total 0.103 Volume: MEQ/ML / 1,000, Sodium Start Lactate date: 0.028 11/08/14 MEQ/ML 11:35:00, Injectable Duration: Solution 1 doses or times, Stop date: 11/09/14 3:34:00 Morphine No Notes: [facility]oria 11-08 (Same l 17:35: as:MORPhin e Sulfate) Meperidine No Notes: Memor ia 11-08 (Same as: l 17:35: Demerol) "Use Precaution in Elderly, Seizure disorders, and Renal impairment " Acetaminoph No Notes: Jb zachary en 11-08 Infuse l 17:35: over 15 minutes Do not exceed 4gm/day of acetaminop hen Metoprolol No Notes: Memor ia 11-08 (Same as: l 17:35: Lopressor) Push over 2 minutes Oxycodone No Notes: Memori a 11-08 (Same as: l 17:35: Roxicodone ) Labetalol No Notes: Memori a 11-08 (Same as: l 17:35: Normodyne, Trandate) Push over 2 minutes Give bolus over 2-3 minutes. Dulcolax No Notes: [facility] Laxative 11-08 (Same As: l 17:04: Dulcolax, Correctol) (Do Not Crush) "Do Not Crush" Diphenhydra No 25 mg, 1 Me moria mine 11-08 tab, l 17:04: Route: PO, Drug form: TAB, Bedtime, Dosing Weight 124.318, kg, PRN Insomnia, Start date: 11/08/14 11:04:00, Duration: 30 day, Stop date: 12/08/14 11:03:00 Promethazin No Notes: Do M emoria e 11-08 not give l 17:04: IV push. (Same as: Phenergan) Ondansetron No Notes: Jb zachary 11-08 (Same as: l 17:04: Zofran) Morphine No Notes: [facility] 11-08 (Same l 17:04: as:MORPhin e Sulfate) acetaminoph No Notes: Do M emoria en-codeine 11-08 not exceed l #3 17:04: 4gm/day of acetaminop hen. (Same as: Tylenol with Codeine # 3) Calcium No 1,000 mL, Memor ia Chloride 11-08 Rate: 125 l 0.0014 17:04: ml/hr, [place] MEQ/ML / 00 Infuse Potassium over: 8 Chloride hr, Route: 0.004 IV, Dosing MEQ/ML / Weight Sodium 124.318 Chloride kg, Total 0.103 Volume: MEQ/ML / 1,000, Sodium Start Lactate date: 0.028 11/08/14 MEQ/ML 11:04:00, Injectable Duration: Solution 30 day, Stop date: 12/08/14 11:03:00 Ciprofloxac No 400 mg, Mem oria in 2 MG/ML 11-08 Route: l Injectable 14:00: IVPB, [place] Solution 00 [id number], [Cipro] Dosing Weight 127.136, kg, Start date: 11/08/14 8:00:00, Duration: 30 day, Stop date: 12/07/14 20:00:00 Calcium No 1,000 mL, Memor ia Chloride 11-08 Rate: 25 l 0.0014 13:46: ml/hr, MEQ/ML / 00 Infuse Potassium over: 40 Chloride hr, Route: 0.004 IV, Dosing MEQ/ML / Weight Sodium 127.136 Chloride kg, Total 0.103 Volume: MEQ/ML / 1,000, Sodium Start Lactate date: 0.028 11/08/14 MEQ/ML 7:46:00, Injectable Duration: Solution 1 doses or times, Stop date: 11/09/14 23:45:00 Levaquin No Notes: [facility] 11-08 (Same l 12:00: as:Levaqui [place] n) BD No Notes: [facility] Posiflush 11-08 (Same as: l SF 12:00: BD Posiflush) alfuzosin No 10 mg = 1 Mem oria 10 mg oral -19 tab, PO, l tablet, 16:41: Daily, # [place] extended 00 30 tab, 0 release Refill(s) montelukast No 10 mg = 1 M emoria 10 mg oral 1-19 tab, PO, l tablet 16:41: QPM, 0 [place] 00 Refill(s) metoprolol No 50 mg = 1 Me moria tartrate 50 1-19 tab, PO, l mg oral 16:41: Daily, 0 [place] tablet 00 Refill(s) Dutasteride No 0.5 mg = 1 Memoria 0.5 MG Oral -19 cap, PO, l Capsule 16:40: Daily, # [place] [Avodart] 00 30 cap, 0 Refill(s) pitavastati No 4 mg = 1 Me moria n 4 MG Oral 1-19 tab, PO, l Tablet 16:39: Daily, 0 [place] [Livalo] 00 Refill(s) Glipizide 5 No 5 mg = 1 Me moria MG Oral 1-19 tab, PO, l Tablet 16:39: BID, # 30 [place] 00 tab, 0 Refill(s) sitagliptin No 100 mg = 1 [facility]oria 100 MG Oral 1-19 tab, PO, l Tablet 16:38: Daily, # [place] [Januvia] 00 30 tab, 0 Refill(s) losartan No 100 mg = 1 Mem oria 100 mg oral 1-19 tab, PO, l tablet 16:38: Daily, # [place] 00 30 tab, 0 Refill(s) amlodipine Yes MARIAA 1 tab(s) Memoria 2-27 CHRYSTAL l 04:54: [place] 21 spironolact 2012-10 Yes MARIAA 1 tab(s) Memoria one 0-01 CHRYSTAL l 04:23: [place] 16 benazepril 2012-10 Yes MARIAA 1 tab(s) Memoria 0-01 CHRYSTAL l 04:23: [place] 16 metoprolol 2012-10 Yes MARIAA 1 tab(s) Memoria 0-01 CHRYSTAL l 04:23: [place] 16 Aspir 81 2012-10 Yes MARIAA 1 tab(s) Me moria 0-01 CHRYSTAL l 04:23: [place] 16 Pravastatin Yes MARIAA 1 tab(s) Memoria Sodium 7-30 CHRYSTAL l 00:00: [place] 00 losartan Yes MARIAA 1 tab(s) Me moria 1-17 CHRYSTAL l 00:00: [place] 00 Livalo No MARIAA 1 tab(s) Jb zachary 1-17 CHRYSTAL l 00:00: [place] 00 Vital Signs Vital Name Observation Time Observation Value Comments Source Systolic (mm Hg) 2019-12-03 19:04:00 Jb rial [place] Diastolic (mm Hg) 2019-12-03 19:04:00 Mem orial [place] Heart Rate 2019-12-03 19:04:00 [facility] [place] Temperature Oral (F) 2019-12-03 19:04:00 97.6 F [facility] [place] Height 2019-12-03 19:04:00 182.88 cm [facility] [place] Weight 2019-12-03 19:04:00 [facility] [place] BMI Calculated 2019-12-03 19:04:00 Memori al [place] Systolic (mm Hg) 2019-10-01 15:58:00 Jb rial [place] Diastolic (mm Hg) 2019-10-01 15:58:00 Mem orial [place] Heart Rate 2019-10-01 15:58:00 [facility] [place] Height 2019-10-01 15:58:00 182.88 cm [facility] [place] Weight 2019-10-01 15:58:00 [facility] [place] BMI Calculated 2019-10-01 15:58:00 Memori al [place] Systolic (mm Hg) 2019-09-09 16:21:00 Jb rial [place] Diastolic (mm Hg) 2019-09-09 16:21:00 Mem orial [place] Heart Rate 2019-09-09 16:21:00 [facility] [place] Height 2019-09-09 16:21:00 185.42 cm [facility] [place] Weight 2019-09-09 16:21:00 [facility] [place] BMI Calculated 2019-09-09 16:21:00 Memori al [place] Systolic (mm Hg) 2019-09-07 19:07:00 Jb rial [place] Diastolic (mm Hg) 2019-09-07 19:07:00 Mem orial [place] Heart Rate 2019-09-07 19:07:00 [facility] [place] Temperature Oral (F) 2019-09-07 19:07:00 97.3 F [facility] [place] Height 2019-09-07 19:07:00 185.42 cm [facility] [place] Weight 2019-09-07 19:07:00 [facility] [place] BMI Calculated 2019-09-07 19:07:00 Memori al [place] Temperature Oral (F) 2019-09-03 04:58:00 98.0 F [facility] [place] Heart Rate 2019-09-03 04:58:00 [facility] [place] Respitory Rate 2019-09-03 04:58:00 Memori al [place] Systolic (mm Hg) 2019-09-03 04:58:00 Jb rial [place] Diastolic (mm Hg) 2019-09-03 04:58:00 Mem orial [place] Systolic (mm Hg) 2019-09-03 01:32:00 Jb rial [place] Diastolic (mm Hg) 2019-09-03 01:32:00 Mem orial [place] Heart Rate 2019-09-03 01:32:00 [facility] [place] Respitory Rate 2019-09-03 01:32:00 [facility] al [place] Temperature Oral (F) 2019-09-03 01:32:00 98.1 F [facility] [place] Weight 2019-09-03 01:32:00 [facility] [place] Systolic (mm Hg) 2019-08-06 15:18:00 Jb rial [place] Diastolic (mm Hg) 2019-08-06 15:18:00 Mem orial [place] Heart Rate 2019-08-06 15:18:00 [facility] [place] Temperature Oral (F) 2019-08-06 15:18:00 98.2 F [facility] [place] Systolic (mm Hg) 2019-07-28 15:44:00 Jb rial [place] Diastolic (mm Hg) 2019-07-28 15:44:00 Mem orial [place] Heart Rate 2019-07-28 15:44:00 [facility] [place] Height 2019-07-28 15:44:00 182.88 cm [facility] [place] Weight 2019-07-28 15:44:00 [facility] [place] BMI Calculated 2019-07-28 15:44:00 [facility]ori al [place] Temperature Oral (F) 2019-07-28 15:44:00 97.5 F [facility] [place] BMI Calculated 2018-12-08 14:41:00 [facility] [place] Weight 2018-12-08 14:41:00 [facility] [place] Height 2018-12-08 14:41:00 185.42 cm [facility] [place] Systolic (mm Hg) 2018-11-25 19:00:00 Jb rial [place] Diastolic (mm Hg) 2018-11-25 19:00:00 Mem orial [place] Respitory Rate 2018-11-25 19:00:00 Memori al [place] Systolic (mm Hg) 2018-11-25 18:30:00 Jb rial [place] Diastolic (mm Hg) 2018-11-25 18:30:00 Mem orial [place] Respitory Rate 2018-11-25 18:30:00 [facility] al [place] Temperature Oral (F) 2018-11-25 18:30:00 97.6 F [facility] [place] Systolic (mm Hg) 2018-11-25 18:00:00 Jb rial [place] Diastolic (mm Hg) 2018-11-25 18:00:00 Mem o[facility] [place] Respitory Rate 2018-11-25 18:00:00 [facility] [place] Temperature Oral (F) 2018-11-25 15:00:00 97.8 F [facility] [place] Temperature Oral (F) 2018-11-25 06:00:00 97.7 F [facility] [place] Height 2018-11-18 01:21:00 182.88 cm [facility] [place] Height 2018-11-18 00:44:00 182.88 cm [facility] [place] Weight 2018-11-17 17:18:00 [facility] [place] Height 2018-11-17 17:18:00 182.88 cm [facility] [place] BMI Calculated 2018-11-17 17:18:00 [facility] al [place] Weight 2018-11-14 15:44:00 [facility] [place] BMI Calculated 2018-11-14 15:44:00 [facility] al [place] BMI Calculated 2018-10-30 21:00:00 [facility] [place] Weight 2018-10-30 21:00:00 [facility] [place] Height 2018-10-30 21:00:00 185.42 cm [facility] [place] Height 2018-10-28 19:21:00 185.42 cm [facility] [place] BMI Calculated 2018-10-28 19:21:00 [facility] al [place] Weight 2018-10-28 19:21:00 [facility] [place] Systolic (mm Hg) 2018-10-01 17:58:00 Jb rial [place] Diastolic (mm Hg) 2018-10-01 17:58:00 Mem orial [place] BMI Calculated 2018-10-01 14:33:00 [facility] al [place] Weight 2018-10-01 14:33:00 [facility] [place] Height 2018-10-01 14:33:00 185.42 cm [facility] [place] Temperature Oral (F) 2018-02-11 18:26:00 98.3 F [facility] [place] Heart Rate 2018-02-11 18:26:00 [facility] [place] Systolic (mm Hg) 2018-02-11 18:26:00 Jb rial [place] Diastolic (mm Hg) 2018-02-11 18:26:00 Mem orial [place] Systolic (mm Hg) 2017-07-29 18:05:00 Jb rial [place] Diastolic (mm Hg) 2017-07-29 18:05:00 Mem orial [place] Respitory Rate 2017-07-29 18:05:00 Memori al [place] Heart Rate 2017-07-29 18:05:00 [facility] [place] Temperature Oral (F) 2017-07-29 18:05:00 36.7 Anya [facility] [place] Height 2017-07-29 16:49:00 182.42 cm [facility] [place] Respitory Rate 2017-07-29 16:49:00 [facility]ori [facility] [place] Temperature Oral (F) 2017-07-29 16:49:00 36.4 Anya [facility] [place] Systolic (mm Hg) 2017-07-29 16:49:00 Jb rial [place] Diastolic (mm Hg) 2017-07-29 16:49:00 Mem orial [place] Height 2017-07-27 22:25:00 182.42 cm [facility] [place] Systolic (mm Hg) 2017-07-15 16:30:00 Jb rial [place] Diastolic (mm Hg) 2017-07-15 16:30:00 Mem orial [place] Heart Rate 2017-07-15 16:30:00 [facility] [place] Respitory Rate 2017-07-15 16:30:00 Memori al [place] Systolic (mm Hg) 2017-07-15 14:47:00 Jb rial [place] Diastolic (mm Hg) 2017-07-15 14:47:00 Mem orial [place] Respitory Rate 2017-07-15 14:47:00 Memori al [place] Temperature Oral (F) 2017-07-15 14:47:00 36.1 Anya [facility] [place] Height 2017-07-15 14:47:00 182.42 cm [facility] [place] Systolic (mm Hg) 2015-08-29 22:30:00 Jb rial [place] Diastolic (mm Hg) 2015-08-29 22:30:00 Mem orial [place] Respitory Rate 2015-08-29 22:30:00 [facility]ori [facility] [place] Respitory Rate 2015-08-29 22:15:00 Memori al [place] Systolic (mm Hg) 2015-08-29 22:15:00 Jb rial [place] Diastolic (mm Hg) 2015-08-29 22:15:00 Mem orial [place] Systolic (mm Hg) 2015-08-29 22:00:00 Jb rial [place] Diastolic (mm Hg) 2015-08-29 22:00:00 Mem orial [place] Respitory Rate 2015-08-29 22:00:00 Memori al [place] Heart Rate 2015-08-29 19:00:00 [facility] [place] Weight 2015-08-29 18:40:00 [facility] [place] BMI Calculated 2015-08-29 18:40:00 [facility]ori [facility] [place] Height 2015-08-27 00:28:00 185.42 cm [facility] [place] Temperature Oral (F) 2014-11-10 17:28:00 98.2 F [facility] [place] Heart Rate 2014-11-10 17:28:00 [facility] [place] Respitory Rate 2014-11-10 17:28:00 Memori al [place] Diastolic (mm Hg) 2014-11-10 17:28:00 Mem orial [place] Systolic (mm Hg) 2014-11-10 17:28:00 Jb rial [place] Temperature Oral (F) 2014-11-10 13:41:00 98.0 F [facility] [place] Heart Rate 2014-11-10 13:41:00 [facility] [place] Respitory Rate 2014-11-10 13:41:00 Memori al [place] Systolic (mm Hg) 2014-11-10 13:41:00 Jb rial [place] Diastolic (mm Hg) 2014-11-10 13:41:00 Mem orial [place] Heart Rate 2014-11-10 10:42:00 [facility] [place] Respitory Rate 2014-11-10 10:42:00 Memori al [place] Diastolic (mm Hg) 2014-11-10 10:42:00 Mem orial [place] Systolic (mm Hg) 2014-11-10 10:42:00 Jb rial [place] Temperature Oral (F) 2014-11-10 10:42:00 98.1 F [facility] [place] Height 2014-11-08 22:55:00 185.42 cm [facility] [place] BMI Calculated 2014-11-08 22:55:00 Memori al [place] Weight 2014-11-08 22:55:00 [facility] [place] Weight 2014-11-08 13:50:00 [facility] [place] BMI Calculated 2014-11-08 13:50:00 Memori al [place] Height 2014-11-01 16:36:00 185.42 cm [facility] [place] Temperature Oral (F) 2013-05-12 17:30:00 96.8 F [facility] [place] Weight 2013-05-12 17:30:00 [facility] [place] Respitory Rate 2013-05-12 17:30:00 Memori al [place] Heart Rate 2013-05-12 17:30:00 [facility] [place] Diastolic (mm Hg) 2013-05-12 17:30:00 Mem orial [place] Systolic (mm Hg) 2013-05-12 17:30:00 Jb rial [place] Temperature Oral (F) 2013-05-12 16:30:00 96.8 F [facility] [place] Weight 2013-05-12 16:30:00 [facility] [place] Respitory Rate 2013-05-12 16:30:00 Neymarori al [place] Heart Rate 2013-05-12 16:30:00 [facility] [place] Diastolic (mm Hg) 2013-05-12 16:30:00 Mem orial [place] Systolic (mm Hg) 2013-05-12 16:30:00 Jb rial [place] Procedures Procedure Date / Time Performing Clinician Source Performed Measurement of post-voiding 2019-12-03 19:40:00 [facility] [place] residual urine and/or bladder capacity by ultrasound, non-imaging Cystourethroscopy (separate 2019-10-01 16:30:00 [facility] [place] procedure) Transurethral resection of 2015-08-29 06:00:00 renard [place] prostate Operation on prostate 2014-10-14 06:00:00 Delfin al [place] Colon operation<sup>1</sup> 2009-10-14 06:00:00 [facility] [place] Appendectomy [facility] [place] Cholecystectomy [facility] [place] Operation [facility] [place] AV - Aortic valve operation Jb rial [place] Bilateral extraction of [facility] [place] cataracts Colectomy [facility] [place] Fistula left arm [facility] [place] Prostate [facility] [place] cataract surgery [facility] [place] Plan of Care Planned Activity Planned Date Details Comments Source Future Scheduled 2020-05-14 INFLUENZA VACCINE [place] [facility] 00:00:00 [code = INFLUENZA VACCINE] Future Scheduled 2009 65+ PNEUMOCOCCAL [place] [facility] Test 00:00:00 VACCINE (1 of 1 - PPSV23) [code = 65+ PNEUMOCOCCAL VACCINE (1 of 1 - PPSV23)] Future Scheduled 1994 COLONOSCOPY SCREENING Ho candelario Mandaen Test 00:00:00 [code = COLONOSCOPY SCREENING] Future Scheduled 1994 SHINGLES VACCINES (#1) [place] [facility] Test 00:00:00 [code = SHINGLES VACCINES (#1)] Encounters Start End Encounter Admission Attending Care Care Encounter Source Date/Time Date/Time Type Type Clinicians Facility Department ID 2019-12-03 2019-12-03 Outpatient Miguel Caldwell [facility] [id number] 13:45:00 23:59:59 27 2019-11-03 2019-11-03 Outpatient Miguel Caldwell [facility] [id number] 13:45:00 13:45:00 19 2019-10-01 2019-10-01 [id number] 10:30:00 23:59:59 24 2019-09-09 2019-09-09 Outpatient Lc MG MG [id number] 11:00:00 23:59:59 Mallory Keating 25 2019-09-07 2019-09-07 Outpatient Lc MG MG [id number] 13:15:00 23:59:59 Mallory Keating 23 2019 [place] [id number] 19:09:24 23:00:00 Rolf Tran 2019 2019 Emergency E [facility] [id number] MHFB 19:09:00 19:09:00 2019-08-06 2019-08-06 Outpatient Miguel Caldwell [facility] MG [id number] 11:00:00 23:59:59 21 2019-07-28 2019-07-28 Outpatient Miguel Caldwell MG MG [id number] 14:00:00 23:59:59 20 2019-06-30 2019-07-01 Outpatient MG MG [id number] 12:14:38 23:59:59 04 2018-12-08 2018-12-08 [facility] [id number] 08:37:00 23:59:00 Neema Stewart 19 2018-11-17 2018-11-25 Outpatient Johana [facility] [id number] 08:31:00 14:50:00 Neema Stewart 16 2018-10-30 2018-10-30 Outpatient ROSA ELENA [facility] [id number] 14:41:00 23:59:00 Cindy Monroy 17 2018-10-28 2018-10-28 Outpatient Miguel Caldwell [facility] [id number] 13:45:00 23:59:59 18 2018-10-01 2018-10-01 Outpatient Jagjit [facility] [id number] 08:33:00 23:59:00 Liborio Marin 14 2018-08-19 2018-08-19 Outpatient Miguel Caldwell [facility] [id number] 13:45:00 13:45:00 17 2018-08-19 2018-08-19 Outpatient Miguel Caldwell [facility] [id number] 10:15:00 10:15:00 16 2018-02-11 2018-02-11 Outpatient Miguel Caldwell MG [facility] [id number] 14:15:00 23:59:59 15 2018-02-11 2018-02-11 Outpatient Miguel Caldwell [facility] [id number] 14:15:00 23:59:59 15 2018-02-03 2018-02-04 Outpatient MG MG [id number] 10:45:00 23:59:59 02 2017-07-29 2017-07-29 Outpatient Davian, [id number] 11:35:40 13:15:00 Rivera Dey 8 2017-07-15 2017-07-15 Outpatient Davian, [id number] 09:09:59 11:45:00 Rivera Dey 8 2015-09-19 2015-09-19 Outpatient Ibisrenae, [id number] 12:41:00 23:59:00 Mallory Zuri [id number] 2015-08-29 2015-08-29 Outpatient LISA MacedoSL S [id number] 10:37:00 17:25:00 Jeovanny Rich 2014-11-09 2014-11-10 Outpatient KATHI Macedo [facility] [id number] 16:13:00 13:55:00 Jeovanny 03 Hilario 2013-12-15 2013-12-15 [facility] [id number] [facility] 08:27:00 08:27:00 [facility] 2013-12-09 2013-12-09 [facility] [id number] [facility] 11:58:00 11:58:00 [facility] 2013-10-05 2013-10-05 [facility] [id number] [facility] 09:54:00 09:54:00 [facility] 2013-09-07 2013-09-07 [facility] [id number] [facility] 11:59:00 11:59:00 [facility] 2013-06-09 2013-06-09 [facility] [id number] [facility] 11:39:00 11:39:00 [facility] 2013-06-07 2013-06-07 [facility] [id number] [facility] 22:56:00 22:56:00 [facility] 2013-05-29 2013-05-29 [facility] [id number] [facility] 14:36:00 14:36:00 [facility] 2013-05-25 2013-05-25 [facility] [id number] [facility] 10:54:00 10:54:00 [facility] 2013-05-12 2013-05-12 [facility] [id number] [facility] 11:30:00 11:30:00 [facility] Results Test Description Test Time Test Comments Results Result Comments Source URINE AND STOOL 2019-09-03 [facility] 03:02:00 *NA*(09/02/19 [place] 9:02 PM) URINE AND STOOL 2019-09-03 [facility] 03:02:00 *ABN*(09/02/19 [place] 9:02 PM) URINE AND STOOL 2019-09-03 03:02:00 Test Item Value Reference Range Interpretation Comme nts UA Spec Grav (test code = UA Spec Grav) 1.011 1 [facility] [id number] 03:02:00 Test Item Value Reference Range Interpretation Comments UA pH (test code = UA pH) 8.0 1 5[facility]0-8.0 [facility] [id number] 03:02:00Negative *NA*(09/02/19 9:02 PM[facility] [id number] 03:02:00Negative *NA*(09/02/19 9:02 PM)[facility] [id number] 03:02:00Small *ABN*(09/02/19 9:02 PM)[facility] [id number] 03:02:00Negative (09/02/19 9:02 PM) [facility] [id number] 03:02:00Moderate *ABN*(09/02/19 9:02 PM)[facility] [id number] 03:02:00None Seen (09/02/19 9:02 PM)[facility] [id number] 03:02:40158Mndblunp HermannURINE AND [id number] 03:02:0010[facility]annCHEM [id number] 11:49:002.5 [facility]annCHEM [id number] 11:49:006.1[facility] HermannELECTROLYTES 2018-11-25 11:49:0013.9[facility] YnuwehxFXLJADBHHTMP8779-98-61 11:49:007[facility] GtaqkokOEWJSLZRMHTN2444-31-32 11:49:003.9[facility] ZfeqludBPZQHJLOKZYW5932-54-59 11:49:009.4[facility] AzwoohuNVMZRSTVVOHA7805-19-70 11:49:0098[facility] [place] DTGCLRQOHDZN5000-87-45 11:49:70113Crrgjujo PjkcnypGPUTLWJOUSQD0696-11-46 11:49:0029[facility] XoenrqzXVAULQGVWBGU2136-38-40 11:49:65109Tbtwjnxn [place] BZZBOQESPGNW6740-93-60 11:49:006.85[facility] OojojmkEYEJGMQQKEIV9934-15-98 11:49:0050[facility] BxdcjvmATCSVPKQNX1592-44-11 11:49:00 Test Item Value Reference Range Interpretation Comments PTT (test code = PTT) 61.4 s 22.9-35.8 [facility] [id number] 11:49:00 Test Item Value Reference Range Interpretation Comments INR (test code = INR) 2.69 1 0.85-1.17 [facility] [id number] 11:49:00 Test Item Value Reference Range Interpretation Comments PT (test code = PT) 28.0 s 12.0-14.7 [facility] KdxwoxkHSVTTKWYDM9179-89-36 11:49:000.1[facility]annHEMATOLOGY 2018-11-25 11:49:000.7[facility] ZoxnczsNBRNGGDKEW6847-09-50 11:49:000.9[facility] LptahoiUSMTKJKNJQ2078-16-75 11:49:001.9[facility] QcfxfmgRFBQANIWHJ8795-64-84 11:49:007.3[facility] BfglvexJAWLXUAARU7815-09-20 11:49:006.0[facility] [place] NONFPWLPFO2786-19-06 11:49:008.5[facility] HxvetwkQBWUKNGOXE0812-40-62 11:49:000.8 [facility] XatgqmyEYUXFMBYVY4288-04-74 11:49:0067.0[facility]annHEMATOLOGY 2018-11-25 11:49:0017.7[facility] KxpmpoaGPGCESOFRM7771-56-29 11:49:0011.0[facility] VtwfyquUTJETVXPPV7651-78-24 11:49:002.69[facility] RdipsstVYQJIEPRWG9768-44-87 11:49:0025.0[facility] WfkkrwqIUBYROAVKP8165-27-80 11:49:008.4[facility] WITLAZLEXD6351-53-43 11:49:00 Test Item Value Reference Range Interpretation Comments MCH (test code = MCH) 31.4 pg 27.0-31.0 [facility] ZkhcbbsOIUCUSYUVP5743-87-68 11:49:0093.0[facility]annHEMATOLOGY 2018-11-25 11:49:009.2[facility] VffirhmTTGKRKCKUV6590-10-61 11:49:64218Exhsxups MepmqomWJRECVDIWV7322-33-01 11:49:0015.4[facility] MqdwsjnLJERCXIHUL9290-74-59 11:49:0033.7[facility]annCHEM MWMRT4976-18-54 10:46:006.7[facility]annCHE[facility] SFSED1538-16-95 10:46:002.6[facility]annCHE[facility] NHFAT1366-27-43 10:46:006 [facility]annCHE[facility] AYJOF4687-03-90 10:46:0028[facility]annCHEM PANEL 2018-11-24 10:46:009.6[facility]annCHEM UWJXN4240-27-89 10:46:0057[facility]annCHE[facility] YTAAO4592-11-62 10:46:007.59[facility]annCHEM RCSHC9196-85-43 10:46:51009Vtvkjthh HermannCHEM LWVTQ6712-37-39 10:46:005.3[facility]annCHEM ZDVBP7404-00-85 10:46:0098[facility]annCHE[facility] PVJNI3357-47-12 10:46:15244 [facility]annCHE[facility] MRLGE0999-80-81 10:46:0015.3[facility]annHEMATOLOGY 2018-11-24 10:46:002.3[facility] XkcjwufLPSKVCEFYQ5114-40-44 10:46:007.0[facility] XhrdwpgWYBLEMORMV0039-20-01 10:46:005.7[facility] LmumjigFYIHIYLCIZ2727-79-82 10:46:000.9[facility] QhvpedgCOPSMWKSQV9624-30-58 10:46:000.1[facility] UFSYFQTJGP3465-40-28 10:46:000.7[facility] UxrhieuDGGXHBKFXT1969-66-35 10:46:00 23.6[facility] WiugqqxLUBRUSCQFY6942-01-74 10:46:0059.3[facility]annHEMATOLOGY 2018-11-24 10:46:009.2[facility] NgjwoeaULTIFMXXUL8595-80-16 10:46:000.9[facility] ErmvlxnHAMJBTWLVP4016-07-68 10:46:0093.1[facility] KtwvkfyOQNUBMCFXZ6654-43-34 10:46:0034.3[facility] XhatoozHGTCXTAQFV1616-47-17 10:46:0015.5[facility] FFAPNOBZTJ6760-32-69 10:46:26248Jkepmahp CikzwbfJFECFQHSFR1827-02-28 10:46:009.7 [facility] EotwastCPJFTNWRTP7900-18-15 10:46:00 Test Item Value Reference Range Interpretation Comments MCH (test code = MCH) 32.0 pg 27.0-31.0 [facility] FeryrriMYKXDQETYE0050-51-68 10:46:002.72[facility]annHEMATOLOGY 2018-11-24 10:46:008.7[facility] MyidxnmELGGOZHWYI5551-15-78 10:46:0025.3[facility] FpeoaxaXGCXHPZVQW0206-91-23 10:46:009.8[facility] UilpefsVYEAAETIYP1396-63-23 10:46:00 Test Item Value Reference Range Interpretation Comments INR (test code = INR) 2.31 1 0.85-1.17 [facility] XwsydbyXYQVRBICGD0458-01-99 10:46:00 Test Item Value Reference Range Interpretation Comments PTT (test code = PTT) 79.5 s 22.9-35.8 [facility] ZhsrincDFPAWOYDZU1993-44-41 10:46:00 Test Item Value Reference Range Interpretation Comments PT (test code = PT) 24.9 s 12.0-14.7 [facility]annCHEM JUFRW8068-29-69 09:40:009[facility]annCHEM PANEL 2018-11-23 09:40:0039[facility] HermannCHEM DNXFB9619-64-39 09:40:005.64[facility]annCHEM RZOPM9598-46-59 09:40:85964Eujevitt HermannCHEM UGUTO8617-34-76 09:40:65513Chiwtmkh HermannCHEM XTEUH0942-46-42 09:40:009.4[facility]annCHEM UMEYJ4839-04-42 09:40:80477Ysqokrwc HermannCHEM IOWFM3009-41-31 09:40:0013.7 [facility]annCHEM NEUPS8246-29-79 09:40:003.7[facility]annCHEM PANEL 2018-11-23 09:40:0030[facility] JpvjllgETYJXIBYXT4147-87-98 09:40:0093.6[facility] KpkdhojEHPCLXHOXN4204-21-11 09:40:0025.3[facility] BrhapxbZYRJOENMAA1131-07-17 09:40:0034.7[facility] YfascuzUMUPRDGIAO9208-06-17 09:40:0015.7[facility] MGQPNMHXMA7056-39-95 09:40:45876Uypndbzb WeabcciBJNFOEPTYJ5127-06-49 09:40:00 Test Item Value Reference Range Interpretation Comments MCH (test code = MCH) 32.5 pg 27.0-31.0 [facility] SjvdrwbLGZWWPTZCT6384-80-80 09:40:002.70[facility]annHEMATOLOGY 2018-11-23 09:40:008.8[facility] KtplkixFPDZRMDRXI9226-72-35 09:40:009.8[facility] QociisnUBLYNALCJF6829-36-04 09:40:007.8[facility] OxephthMCCCWZHIDA2025-89-53 09:40:00 Test Item Value Reference Range Interpretation Comments INR (test code = INR) 1.62 1 0.85-1.17 [facility] NqvmcelAZYLUUYBZH8637-17-44 09:40:00 Test Item Value Reference Range Interpretation Comments PTT (test code = PTT) 77.2 s 22.9-35.8 [facility] ZzokimaQOBAIZDYQE2309-11-03 09:40:00 Test Item Value Reference Range Interpretation Comments PT (test code = PT) 18.9 s 12.0-14.7 [facility] KbucmtoKLVXMRXRZX9365-56-01 09:40:000.7[facility] HermannHEMATOLOGY 2018-11-23 09:40:000.6[facility] UkqdkmpGXYCXSCYWH1448-96-72 09:40:000.1[facility] WwpdarpLKDNPRJTYH3560-68-66 09:40:001.7[facility] SxbaiytPOMKVJRJBM9101-02-55 09:40:0060.5[facility] KyqyeogBACFVMXIFW7407-48-59 09:40:0021.3[facility] UWZIXVYWUK1911-70-35 09:40:004.7[facility] UsjfskxVGBZNXICBB0854-78-58 09:40:001.0 [facility] BddkkymJPKUBXSTHH3041-45-99 09:40:007.9[facility]annHEMATOLOGY 2018-11-23 09:40:009.3[facility] HermannCHEM DKIPJ9635-25-79 10:20:007.6[facility] HermannCHEM EEVNM1443-27-49 10:20:002.5[facility] HermannPARATHYROID PROFILE 2018-11-22 10:20:001.15[facility] HermannPARATHYROID BUPIJHJ0362-60-16 10:20:00 1.18[facility] HermannPARATHYROID SIETNJC2381-60-45 09:49:001.13[facility] PARATHYROID IJOPEGK7411-52-25 09:49:001.12[facility] HermannBACTERIAL - SEROLOGY 2018-11-19 09:06:00Negative (11/19/18 3:06 AM)[facility] HermannPARATHYROID PROFILE 2018-11-19 09:06:001.11[facility] HermannPARATHYROID VWYXEXM5250-33-64 09:06:00 1.10[facility] AccmugoIBZIZYRYSL1923-54-70 11:43:00Negative *NA*(11/18/18 5:43 AM) [facility] PcqyqjkROPRDKKRLM9087-65-99 11:43:0066.7[facility] HermannIMMUNOLOGY 2018-11-18 11:43:00Negative *NA*(11/18/18 5:43 AM)[facility]annIMMUNOLOGY 2018-11-18 11:43:00Negative *NA*(11/18/18 5:43 AM)[facility]annIMMUNOLOGY 2018-11-18 11:43:00Negative *NA*(11/18/18 5:43 AM)[facility]annBLOOD BANK QBBTQQD2413-22-86 16:45:00Product available (11/17/18 10:45 AM)[facility] BLOOD BANK RYIEQYP7142-52-54 16:45:00Product available (11/17/18 10:45 AM)[facility]BL[facility] QMOXKAG7375-28-99 16:45:00Product available (11/17/18 10:45 AM) [facility]BL[facility] AQDYILJ3313-73-46 20:06:00Negative (11/14/18 2:06 PM) [facility]annCHEM UYWOH6567-06-95 16:45:003.9[facility] HermannCHEM PANEL 2018-11-14 16:45:00 Test Item Value Reference Range Interpretation Comments A/G Ratio (test code = A/G Ratio) 0.9 1 0.7-1.6 [facility]annCHEM GLDML4568-12-25 16:45:000.1[facility] HermannCHEM PANEL 2018-11-14 16:45:000.4[facility] HermannCHEM KWVOF3342-11-80 16:45:0091[facility] HermannCHEM UQDYT0057-09-03 16:45:000.5[facility] HermannCHEM DNSCN2331-07-38 16:45:003.6[facility] HermannCHEM EEDQU7800-26-14 16:45:0021[facility] HermannCHEM BUFEJ0850-88-86 16:45:0012[facility] HermannCHEM XNSBZ3577-16-68 16:45:007.5 [facility]annSPECIAL NANVURRHX9418-00-76 16:45:006.8[facility] PCSFTFJMSM7248-14-55 17:07:74908Zbpylinj UbuctdrNULPKLUEOV1902-03-08 15:00:55489 [facility] TymfyjlNBFHRSYEHZOC7772-17-97 19:27:88391Jcqravgn HermannELECTROLYTES 2015-08-29 19:27:02434Prmdsudo EfkvqvcYEASSGBMTTBK8277-92-11 19:27:003.6[facility] ByhsoxvXJTDOIDKWOTN1800-57-33 19:27:004.21[facility] DofiiopMZGOCVDLZQXF7584-43-59 19:27:0027[facility] KnpbtwcXTZKNBSPGONQ9250-49-27 19:27:0010.6[facility] IKIVXJAGQYWE2911-49-88 19:27:009.0[facility] WkuwvznVUIMBGKYRWGU4742-56-19 19:27:0047[facility] ZfosnynJTPXMLTVLOLB0413-93-69 19:27:34939Wndufyul [facility] CIMVZKLRKYLX0682-07-55 19:27:0013[facility] HermannCHEM BRJIG6515-15-29 17:05:0024 [facility]annCHEM SYFNI2310-62-00 17:05:56198Djnrxqkq HermannCHEM PANEL 2014-11-01 17:05:0028[facility] HermannCHEM STUSQ4359-36-89 17:05:009.1[facility] HermannCHEM CISJN6427-25-51 17:05:43527Ffptomaq HermannCHEM YFEGV7918-62-02 17:05:86242Awemgjcu HermannCHEM RFLVY3302-69-75 17:05:002.6[facility] HermannCHEM KIJOY4379-03-45 17:05:004.2[facility] HermannCHEM PWOLU9994-99-58 17:05:0023 [facility] HermannCHEM GPUUI1089-66-19 17:05:0011.2[facility] HermannHEMATOLOGY 2014-11-01 17:05:68282Obstjczi VhibjmcRAOPGTYZSZ0743-54-39 17:05:009.5[facility] TflzfwjHEEQCXOQKF6164-21-86 17:05:004.89[facility] HebhamxSMNCCBNZLM8020-43-79 17:05:0014.3[facility] UwbcftfYZFYALKIGU7235-50-86 17:05:0010.6[facility] QFRZOJFENJ9895-34-06 17:05:0012.7[facility] KsbhdseENTYTFOPXL6988-44-90 17:05:00 33.1[facility] NxhwpqdHWYUJBHXXP7786-36-89 17:05:0043.3[facility] HermannHEMATOLOGY 2014-11-01 17:05:0088.6[facility] PqfogfkNQNPORRGWY7223-86-12 17:05:00 Test Item Value Reference Range Interpretation Comments MCH (test code = MCH) 29.3 pg 27.0-31.0 [facility] NvawsumABETNSVIWB3126-36-50 17:05:007.7[facility] HermannHEMATOLOGY 2014-11-01 17:05:000.0[facility] HejapihNEIKZJEAXN1333-73-74 17:05:000.5[facility] KmejigqNDBXSTFRBB4906-72-02 17:05:000.2[facility] RdrzlnmIARWWJBMSH4642-85-22 17:05:002.3[facility] QftobdcBIYLEIVYHI8937-24-46 17:05:0072.1[facility] LSPPWCKZOW3343-58-58 17:05:0021.4[facility] KyvhouqUJGTRRNGZR7736-36-10 17:05:00 4.5[facility] CbplkmbOIWTREBZYA8530-06-46 17:05:000.3[facility] HermannHEMATOLOGY 2014-11-01 17:05:001.7[facility] HermannSPECIAL ZLXQKGMFA8978-05-46 17:05:007.1 [facility]
[2020-07-29 12:24] LABS: Basophils % 0.4 % (0-1.3); Hematocrit 32.8 % (39.6-49.0); Lymphocytes % 8.6 % (15.3-44.8); MPV 9.5 fL (7.6-11.3); RBC Red Blood Cell Count 3.49 M/uL (4.33-5.43)
[2020-07-29] MEDS ORDERED: FENTANYL CITR 100 MCG/2 ML ONE (12:28)
--- NOTE | 2020-07-29 12:48 | RAD REPORT ---
EXAM DESCRIPTION: RAD - Pelvis - 07/29/2020 12:37 pm CLINICAL HISTORY: PAIN Fall, pain COMPARISON: Hip Left 2 View dated 07/29/2020 FINDINGS: Mild arthritic changes in both hips. No acute fracture or dislocation seen.
--- NOTE | 2020-07-29 12:49 | RAD REPORT ---
EXAM DESCRIPTION: RAD - Hip Left 2 View - 07/29/2020 12:37 pm CLINICAL HISTORY: PAIN COMPARISON: No comparisons FINDINGS: Mild osteoarthritis of the left hip is seen. No acute fracture or dislocation seen. Vascul ar calcification is evident.
[2020-07-29 12:55] LABS: Potassium 6.3 mmol/L (3.5-5.1)
--- NOTE | 2020-07-29 13:19 | EDPHYS ---
Physician Documentation [facility] Name: John Paul Morales Age: 74 yrs Sex: Male : 1945 Arrival Date: 07/29/2020 Time: 11:42 Bed 6 Private MD: ED Physician Torsten Márquez HPI: 07/29 14:43 This 74 yrs old Male presents to ER via EMS with complaints of Leg Pain, kb missed dialysis Sat \\\\ Saturday d/to LEFT leg pain. 14:43 The patient presents with pain, tenderness. The complaints affect the left hip. kb 14:44 Context: The problem was sustained at home, resulted from an unknown cause, the patient kb can partially bear weight, must have assistance, Problem is a result from a previous injury: No. Onset: The symptoms/episode began/occurred 3 day(s) ago. Modifying factors: The symptoms are alleviated by remaining still, the symptoms are aggravated by movement, weight bearing. Associated signs and symptoms: Pertinent positives: swelling, pain. 14:48 Treatment prior to arrival includes: no previous treatment. Severity of symptoms: At kb their worst the symptoms were moderate, in the emergency department the symptoms are unchanged. The patient has not experienced similar symptoms in the past. The patient has not recently seen a physician. Pt reports left hip pain that started on Saturday. States the pain has been getting progressively worse and he hasn't been able to get around very well so he missed dialysis on Saturday and Saturday. . Historical: - Allergies: 11:53 No Known Allergies; bp - Home Meds: 11:53 pregabalin 75 MG Oral 1 cap daily [Active]; DIALYVITE 800 0.8 mg oral tab [Active]; bp tamsulosin 0.4 mg oral cp24 1 cap once daily [Active]; rosuvastatin 20 mg oral tab 1 tab once daily [Active]; amlodipine 10 mg tab 1 tab once daily [Active]; warfarin 5 mg Oral tab 1 tab once daily [Active]; metoprolol tartrate 50 mg Oral tab 1 tab 2 times per day [Active]; Vitamin D Oral 5000 unit daily [Active]; - PMHx: 11:53 ESRD; Hypertension; High Cholesterol; bp 11:53 Dialysis; MWF; bp - PSHx: 11:53 MITRAL VALVE REPLACEMENT; bp - Immunization history:: Adult Immunizations. - Social history:: Smoking status: . ROS: 13:13 Constitutional: Negative for fever, chills, and weight loss, Respiratory: Negative for kb shortness of breath, cough, wheezing, and pleuritic chest pain, Abdomen/GI: Negative for abdominal pain, nausea, vomiting, diarrhea, and constipation, Skin: Negative for injury, rash, and discoloration, Neuro: Negative for headache, weakness, numbness, tingling, and seizure. 13:13 MS/extremity: Positive for pain, tenderness, of the left hip. Exam: 14:42 Constitutional: This is a well developed, well nourished patient who is awake, alert, kb and in no acute distress. Head/Face: Normocephalic, atraumatic. Chest/axilla: Normal chest wall appearance and motion. Nontender with no deformity. No lesions are appreciated. Respiratory: Lungs have equal breath sounds bilaterally, clear to auscultation and percussion. No rales, rhonchi or wheezes noted. No increased work of breathing, no retractions or nasal flaring. Abdomen/GI: Soft, non-tender, with normal bowel sounds. No distension or tympany. No guarding or rebound. No evidence of tenderness throughout. Skin: Warm, dry with normal turgor. Normal color with no rashes, no lesions, and no evidence of cellulitis. Neuro: Awake and alert, GCS 15, oriented to person, place, time, and situation. Cranial nerves II-XII grossly intact. Motor strength 5/5 in all extremities. Sensory grossly intact. Cerebellar exam normal. Normal gait. 14:42 Cardiovascular: Edema: pedal edema, that is moderate, 2+. 14:42 Musculoskeletal/extremity: Extremities: grossly normal except: noted in the left hip: pain, tenderness, ROM: limited active range of motion due to pain, Circulation is intact in all extremities. Sensation intact. Weight bearing: can bear weight with assistance only. Vital Signs: 11:44 BP 94 / 82; Pulse 57; Resp 14; Temp 97.7(O); Pulse Ox 96% on R/A; Weight 108.41 kg (R); bp Height 6 ft. 1 in. (185.42 cm) (R); Pain 0/10; 12:48 BP 129 / 60; Pulse 54; Resp 14; Pulse Ox 95% on R/A; tw2 13:50 BP 92 / 56; Pulse 53; Resp 14; Pulse Ox 95% on R/A; tw2 14:30 BP 121 / 56; Pulse 54; Resp 14; Pulse Ox 95% on R/A; tw2 15:30 BP 125 / 62; Pulse 55; Resp 10; Pulse Ox 93% ; bp 16:30 BP 130 / 51; Pulse 53; Resp 19; Pulse Ox 94% ; bp 11:44 Body Mass Index 31.53 (108.41 kg, 185.42 cm) bp 11:44 pt states "except for when i put weight on it" bp MDM: 12:03 Patient medically screened. kb 13:13 Data reviewed: vital signs, nurses notes. Data interpreted: Pulse oximetry: on room air kb is 95 %. Interpretation: normal. Counseling: I had a detailed discussion with the patient and/or guardian regarding: the historical points, exam findings, and any diagnostic results supporting the discharge/admit diagnosis, lab results, radiology results, the need for further work-up and treatment in the hospital. 13:17 Physician consultation: Derick Morris MD was contacted at 13:17, regarding admission, kb to the telemetry unit. patient's condition, and will see patient in ED, shortly. 13:17 Physician consultation: Herberth Solano DO was called at 13:17, paged by staff. kb 14:47 Physician consultation: Spoke with Dr Hopkins, nephrology. He will call Dialysis nurse to kb get pt dialyzed as soon as possible. 07/29 12:09 Order name: CBC with Diff; Complete Time: 12:33 kb 07/29 12:09 Order name: Basic Metabolic Panel; Complete Time: 12:57 kb 07/29 12:09 Order name: Hip Left 2 View XRAY; Complete Time: 12:57 kb 07/29 12:09 Order name: Pelvis XRAY; Complete Time: 12:57 kb 07/29 13:11 Order name: CT Pelvis wo Cont; Complete Time: 13:41 kb 07/29 12:09 Order name: IV Start; Complete Time: 12:12 kb 07/29 14:13 Order name: CONS Physician Consult EDMS Administered Medications: 12:19 Drug: fentaNYL (PF) 50 mcg Route: IVP; Site: right antecubital; tw2 14:56 Follow up: Response: Pain is decreased bp 15:22 Not Given (Patient Refused; "that aint high for me, i aint taking it", provider tw2 notified.): Kayexalate 30 grams PO once Disposition: 07/30 13:15 Co-signature as Attending Physician, Torsten Márquez MD I agree with the assessment and kdr plan of care. Disposition: 07/29/20 13:18 Hospitalization ordered by Derick Morris for Observation. Preliminary diagnosis are Hyperkalemia, Edema, unspecified, End stage renal disease, Pain in left hip. - Bed requested for Telemetry/MedSurg (observation). - Status is Observation. bp - Condition is Stable. - Problem is new. - Symptoms are unchanged. Signatures: Dispatcher [employer] EDMS Ju Esteban, WORKERS COMPENSATION ADMINISTRATOR-C WORKERS COMPENSATION ADMINISTRATOR-Ckb Torsten Márquez MD MD [facility] Wolfgang Jackson em1 Maria Victoria Tobias, RN RN tw2 Joon Floyd RN RN bp Corrections: (The following items were deleted from the chart) 07/29 14:51 14:44 Associated signs and symptoms: Pertinent positives: swelling, kb kb 16:31 13:18 Hospitalization Ordered by Derick Morris MD for Observation. Preliminary em1 diagnosis is Hyperkalemia; Edema, unspecified; End stage renal disease; Pain in left hip. Bed requested for Telemetry/MedSurg (observation). Status is Observation. Condition is Stable. Problem is new. Symptoms are unchanged. kb 17:07 16:31 07/29/2020 13:18 Hospitalization Ordered by Derick Morris MD for Observation. bp Preliminary diagnosis is Hyperkalemia; Edema, unspecified; End stage renal disease; Pain in left hip. Bed requested for Telemetry/MedSurg (observation). Status is Observation. Condition is Stable. Problem is new. Symptoms are unchanged. em1
--- NOTE | 2020-07-29 13:19 | ER ---
Nurse's Notes [facility] Name: John Paul Morales Age: 74 yrs Sex: Male : 1945 Arrival Date: 07/29/2020 Time: 11:42 Bed 6 Private MD: Diagnosis: Hyperkalemia;Edema, unspecified;End stage renal disease;Pain in left hip Presentation: 07/29 11:44 Chief complaint: EMS states: pt from home, called 911 because of LEFT leg pain, to the tw2 point where he cannot put weight on it and cannot walk to get to the dialysis transportation so he missed dialysis Saturday and today. Coronavirus screen: At this time, the client does not indicate any symptoms associated with coronavirus-19. Ebola Screen: Patient denies travel to an Ebola-affected area in the 21 days before illness onset. Initial Sepsis Screen: Does the patient meet any 2 criteria? No. Patient's initial sepsis screen is negative. Does the patient have a suspected source of infection? No. Patient's initial sepsis screen is negative. Risk Assessment: Do you want to hurt yourself or someone else? Patient reports no desire to harm self or others. Onset of symptoms was July 29, 2020. 11:44 Method Of Arrival: EMS: [facility] tw2 11:44 Acuity: URSULA 3 tw2 Triage Assessment: 11:46 General: Appears in no apparent distress. well groomed, Behavior is calm, cooperative, tw2 appropriate for age. Pain: Complains of pain in left leg. EENT: No signs and/or symptoms were reported regarding the EENT system. Neuro: Level of Consciousness is awake, alert, obeys commands, Oriented to person, place, time, situation. Cardiovascular: Heart tones S1 S2 Patient's skin is warm and dry. Cardiovascular: Dialysis shunt: in the left arm, with palpable thrill, with auscultated bruit, with no erythema, no bleeding noted. Respiratory: Airway is patent Respiratory effort is even, unlabored, Respiratory pattern is regular, symmetrical, Breath sounds are clear bilaterally. GI: No signs and/or symptoms were reported involving the gastrointestinal system. Abdomen is round non-distended, obese, Bowel sounds present X 4 quads. : No signs and/or symptoms were reported regarding the genitourinary system. Derm: No signs and/or symptoms reported regarding the dermatologic system. Musculoskeletal: Circulation, motion, and sensation intact. Range of motion: intact in all extremities, Reports pain in left leg. Historical: - Allergies: :53 No Known Allergies; bp - Home Meds: :53 pregabalin 75 MG Oral 1 cap daily [Active]; DIALYVITE 800 0.8 mg oral tab [Active]; bp tamsulosin 0.4 mg oral cp24 1 cap once daily [Active]; rosuvastatin 20 mg oral tab 1 tab once daily [Active]; amlodipine 10 mg tab 1 tab once daily [Active]; warfarin 5 mg Oral tab 1 tab once daily [Active]; metoprolol tartrate 50 mg Oral tab 1 tab 2 times per day [Active]; Vitamin D Oral 5000 unit daily [Active]; - PMHx: :53 ESRD; Hypertension; High Cholesterol; bp :53 Dialysis; MWF; bp - PSHx: :53 MITRAL VALVE REPLACEMENT; bp - Immunization history:: Adult Immunizations. - Social history:: Smoking status: . Screenin:48 Abuse screen: Denies threats or abuse. Nutritional screening: No deficits noted. tw2 Tuberculosis screening: No symptoms or risk factors identified. Fall Risk Secondary diagnosis (15 points) impaired mobility. Assessment: 11:48 Reassessment: see TRIAGE assessment. tw2 12:48 Reassessment: Patient appears in no apparent distress at this time. No changes from tw2 previously documented assessment. Patient and/or family updated on plan of care and expected duration. Pain level reassessed. Patient is alert, oriented x 3, equal unlabored respirations, skin warm/dry/pink. 14:31 Reassessment: Patient appears in no apparent distress at this time. No changes from tw2 previously documented assessment. Patient and/or family updated on plan of care and expected duration. Pain level reassessed. Patient is alert, oriented x 3, equal unlabored respirations, skin warm/dry/pink. 15:30 Reassessment: ADMIT IN PROCESS. PT REFUSED MD MICHELLE NOTIFIED. bp 15:30 Reassessment: Patient appears in no apparent distress at this time. No changes from tw2 previously documented assessment. Patient and/or family updated on plan of care and expected duration. Pain level reassessed. Patient is alert, oriented x 3, equal unlabored respirations, skin warm/dry/pink. 16:30 Reassessment: ADMIT COMPLETE, BED ASSIGNED. bp 16:36 Reassessment: Patient appears in no apparent distress at this time. No changes from tw2 previously documented assessment. Patient and/or family updated on plan of care and expected duration. Pain level reassessed. Patient is alert, oriented x 3, equal unlabored respirations, skin warm/dry/pink. 16:51 Reassessment: REPORT TO MIRYAM FELIPE FOR RM 215. bp Vital Signs: 11:44 BP 94 / 82; Pulse 57; Resp 14; Temp 97.7(O); Pulse Ox 96% on R/A; Weight 108.41 kg (R); bp Height 6 ft. 1 in. (185.42 cm) (R); Pain 0/10; 12:48 BP 129 / 60; Pulse 54; Resp 14; Pulse Ox 95% on R/A; tw2 13:50 BP 92 / 56; Pulse 53; Resp 14; Pulse Ox 95% on R/A; tw2 14:30 BP 121 / 56; Pulse 54; Resp 14; Pulse Ox 95% on R/A; tw2 15:30 BP 125 / 62; Pulse 55; Resp 10; Pulse Ox 93% ; bp 16:30 BP 130 / 51; Pulse 53; Resp 19; Pulse Ox 94% ; bp 11:44 Body Mass Index 31.53 (108.41 kg, 185.42 cm) bp 11:44 pt states "except for when i put weight on it" bp ED Course: 11:42 Patient arrived in ED. tw2 11:42 Placed in gown. Bed in low position. Side rails up X2. farm tractor operator on. Pulse ox on. tw2 NIBP on. 11:46 Triage completed. tw2 11:48 Arm band placed on. tw2 12:02 Joon Floyd, MATTEO is Primary Nurse. bp 12:03 Ju Esteban FNP-C is PHCP. kb 12:03 Torsten Márquez MD is Attending Physician. kb 12:16 Maintain EMS IV. Dressing intact. Good blood return noted. Site clean \\T\\ dry. Gauge \\T\\ tw 2 site: 20 RIGHT ac. 12:35 Hip Left 2 View XRAY In Process Unspecified. EDMS 12:35 Pelvis XRAY In Process Unspecified. EDMS 13:18 Derick Morris MD is Hospitalizing Provider. kb 13:24 CT Pelvis wo Cont In Process Unspecified. EDMS 16:36 Awaiting: unsuccessful attempt to call report at this time, MATTEO Stringer stated need to call tw2 house sup to see what is going on. 16:50 No provider procedures requiring assistance completed. Patient admitted, IV remains in bp place. Administered Medications: 12:19 Drug: fentaNYL (PF) 50 mcg Route: IVP; Site: right antecubital; tw2 14:56 Follow up: Response: Pain is decreased bp 15:22 Not Given (Patient Refused; "that aint high for me, i aint taking it", provider tw2 notified.): Kayexalate 30 grams PO once Outcome: 13:18 Decision to Hospitalize by Provider. kb 16:51 Admitted to Tele accompanied by tech, via wheelchair, room 215, with chart, Report bp called to MIRYAM FELIPE 16:51 Condition: stable 16:51 Instructed on the need for admit. 17:07 Patient left the ED. bp Signatures: Dispatcher [employer] EDMS Ju Esteban, FUSION OPERATOR-C FUSION OPERATOR-Ckb Maria Victoria Tobias RN RN tw2 Joon Floyd, RN RN bp Corrections: (The following items were deleted from the chart) 12:48 11:44 BP 94 / 82; Pulse 57bpm; Resp 14bpm; Pulse Ox 6% RA; Temp 97.7F Oral; 108.41 kg bp Reported; Height 6 ft. 1 in. Reported; BMI: 31.5; Pain 0/10; pt states "except for when i put weight on it"; tw2 14:31 13:50 BP 121 / 56; Pulse 54bpm; Resp 14bpm; Pulse Ox 95% RA; tw2 tw2
--- NOTE | 2020-07-29 13:38 | RAD REPORT ---
EXAM DESCRIPTION: CT - Pelvis Wo Cont - 07/29/2020 1:25 pm CLINICAL HISTORY: PAIN Left leg pain COMPARISON: No comparisons TECHNIQUE: All CT scans are performed using dose optimization technique as appropriate and may inclu de automated exposure control or mA/KV adjustment according to patient size. FINDINGS: Mild spondylosis is seen at the lumbosacral junction. Both sacral ala are intact. Sacroili ac joints are symmetric. Mild moderate degenerative changes are present in both hips. No evidence of fracture, dislocation or AVN pattern. No intrapelvic mass or hematoma. Moderate bilateral fat containing inguinal hernias, greater on the r ight. Aortoiliac atherosclerosis. IMPRESSION: Crsz-ot-fgfyjvpc degenerative change in the lower lumbar spine as well as both hips. No acute finding is demonstrated.
--- NOTE | 2020-07-29 14:18 | P.HP ---
Patient History Date of Service: 07/29/20 History of Present Illness: 74yo M, PMH: ESRD on hemodialysis, HTN, DM 2, mechanical valve on warfarin, TURP who presented to the ED due to severe left hip pain. He reports his left hip pain began earlier this week and progressively worsened. He was unable to bear any weight and due to this he missed his last 2 dialysis appointments. He otherwise reports being in his usual state of health. He denies any trauma to his left hip. He has not had pain like this before. He denies any radiation, no numbness/tingling. In the ED was found to have a mild leukocytosis of 11.5, hyperkalemia 6.3, creatinine: 15.1. Allergies No Known Allergies Allergy (Unverified 07/29/20 17:13) Home Medications: Amlodipine [Norvasc*] 10 mg PO DAILY 07/29/20 Lidocaine/Prilocaine [Lidocaine-Prilocaine Cream] 1 appl TOP M,W,F PRN 07/29/20 Metoprolol Tartrate 50 mg PO BID 07/29/20 Pregabalin 75 mg PO DAILY PRN 07/29/20 Rosuvastatin [Crestor*] 20 mg PO DAILY 07/29/20 Tamsulosin HCl [Flomax] 0.4 mg PO DAILY 07/29/20 Warfarin Sodium 2.5 mg PO DAILY 07/29/20 - Past Medical/Surgical History -: HTN -: DM 2-diet controlled -: ESRD on hemodialysis -: Mechanical valve, on warfarin -: TURP -: Colonic mass removed - Family History Family History: Reviewed- Non-Contributory - Social History Smoking Status: Never smoker Alcohol use: No Place of Residence: Home Review of Systems 10-point ROS is otherwise unremarkable Physical Examination - Physical Exam General: Alert, In no apparent distress, Oriented x3 HEENT: Sclerae nonicteric Neck: No LAD Respiratory: Clear to auscultation bilaterally, Normal air movement Cardiovascular: Regular rate/rhythm, Edema (2+ b/l) Gastrointestinal: Soft and benign, Non-distended, No tenderness Musculoskeletal: No erythema, Tenderness (Point tenderness in the left trochanteric bursa area. No pain with passive range of motion of left hip, but pain with active range of motion) Neurological: Normal speech, Normal strength at 5/5 x4 extr (Limited to the left lower extremity due to pain), Normal affect - Studies Laboratory Data (last 24 hrs) 07/29/20 12:10: Sodium 133 L, Potassium 6.3 H*, BUN 119 H, Creatinine 15.10 H*, Glucose 104 07/29/20 12:10: WBC 11.5 H, Hgb 10.9 L, Hct 32.8 L, Plt Count 180 Assessment and Plan - Advance Directives Does patient have a Living Will: No Does patient have a Durable POA for Healthcare: No Physician Review Additional Text: ESRD on hemodialysis Left hip pain HTN DM 2-diet controlled Mechanical bowel on warfarin -Dr. Solano consulted for hemodialysis today, creatinine 15, and hyperkalemia -left hip pain likely due to left trochanteric bursitis, will consult orthopedic surgery given the severity of the pain -tramadol for pain control, may benefit from oral steroids for the bursitis -obtain home medications and resume as appropriate, resume warfarin Dispo: Possible discharge home tomorrow after dialysis Time Spent Managing Pts Care (In Minutes): 60
[2020-07-29] MEDS ORDERED: SOD POLYSTYREN SUL 15 GM/60 ML UCUP ONE (15:25)
[2020-07-29 17:13] VITALS: BMI 31.5
[2020-07-29] MEDS ORDERED: TRAMADOL HCL 50 MG TAB PO PRN (17:13)
[2020-07-29] MEDS: INSULIN -REGULAR HUMAN 50 UNIT/0.5 ML ML SQ SCH ×2 (17:13→21:00)
[2020-07-29] MEDS ORDERED: ACETAMINOPHEN 500 MG TAB PO PRN (17:13)
[2020-07-29] MEDS ORDERED: NA CHLORIDE 0.9% 1,000 ML IV PRN (17:29)
[2020-07-29] MEDS ORDERED: MANNITOL 25% 12.5 GM/50 ML VIAL IV PRN (17:29)
[2020-07-29] MEDS ORDERED: ALBUMIN HUMAN 25% 50 ML IV SCH (18:00)
[2020-07-29] MEDS ORDERED: EPOETIN ALFA-EPBX 10,000 UNIT/ML VIAL SQ ONE (18:00)
[2020-07-29] MEDS ORDERED: PREGABALIN 75 MG CAP PO PRN (19:29)
[2020-07-29] MEDS ORDERED: LIDOCAINE/PRILOCAINE CREAM TOP PRN (19:34)
[2020-07-29] MEDS ORDERED: WARFARIN SODIUM 2.5 MG TAB PO SCH (20:00)
[2020-07-29] MEDS: METOPROLOL TAR 50 MG TAB PO SCH (21:00)
[2020-07-29] MEDS: DOCUSATE NA 100 MG CAP PO SCH (21:00)
--- NOTE | 2020-07-29 22:20 | P.CNS ---
Date of Consult: 07/29/20 Reason for Consult: ESRD/ Hyperkalemia Requesting Physician: Derick Morris Chief Complaint: Hip Pain/ Leg Weakness History of Present Illness: 74yo M, PMH: ESRD on hemodialysis, HTN, DM 2, mechanical valve on warfarin, TURP who presented to the ED due to severe left hip pain. He reports his left hip pain began earlier this week and progressively worsened. He was unable to bear any weight and due to this he missed his last 2 dialysis appointments. He otherwise reports being in his usual state of health. He denies any trauma to his left hip. He has not had pain like this before. He denies any radiation, no numbness/tingling. 14:43 This 74 yrs old Male presents to ER via EMS with complaints of Leg Pain, kb missed dialysis Sat\ Saturday d/to LEFT leg pain. 14:43 The patient presents with pain, tenderness. The complaints affect the left hip. kb 14:44 Context: The problem was sustained at home, resulted from an unknown cause, the patient kb can partially bear weight, must have assistance, Problem is a result from a previous injury: No. Onset: The symptoms/episode began/occurred 3 day(s) ago. Modifying factors: The symptoms are alleviated by remaining still, the symptoms are aggravated by movement, weight bearing. Associated signs and symptoms: Pertinent positives: swelling, pain. 14:48 Treatment prior to arrival includes: no previous treatment. Severity of symptoms: At their worst the symptoms were moderate, in the emergency department the symptoms are unchanged. The patient has not experienced similar symptoms in the past. The patient has not recently seen a physician. Pt reports left hip pain that started on Saturday. States the pain has been getting progressively worse and he hasn't been able to get around very well so he missed dialysis on Saturday and Saturday. Allergies No Known Allergies Allergy (Unverified 07/29/20 17:13) Home medications list reviewed: Yes Home Medications: Amlodipine [Norvasc*] 10 mg PO DAILY 07/29/20 Lidocaine/Prilocaine [Lidocaine-Prilocaine Cream] 1 appl TOP M,W,F PRN 07/29/20 Metoprolol Tartrate 50 mg PO BID 07/29/20 Pregabalin 75 mg PO DAILY PRN 07/29/20 Rosuvastatin [Crestor*] 20 mg PO DAILY 07/29/20 Tamsulosin HCl [Flomax] 0.4 mg PO DAILY 07/29/20 Warfarin Sodium 2.5 mg PO DAILY 07/29/20 - Past Medical/Surgical History Diabetic: Yes -: HTN -: DM 2-diet controlled -: ESRD on hemodialysis -: Mechanical valve, on warfarin -: TURP -: Colonic mass removed -: nose surgery -: prostate surgery - Social History Alcohol use: No CD- Drugs: No Caffeine use: Yes Place of Residence: Home Review of Systems 10-point ROS is otherwise unremarkable Respiratory: SOB with Excertion Neurological: Weakness, Numbness Physical Examination Temp Pulse Resp BP Pulse Ox 97.3 F 58 20 138/63 97 07/29/20 17:00 07/29/20 17:00 07/29/20 17:00 07/29/20 17:00 07/29/20 17:00 General: Oriented x3, Cooperative HEENT: Atraumatic Neck: Supple Respiratory: Clear to auscultation bilaterally Cardiovascular: Regular rate/rhythm, Edema Gastrointestinal: Hypoactive, Soft and benign, Non-distended Musculoskeletal: No clubbing, No contractures Integumentary: No rashes, No cyanosis Neurological: Normal speech Laboratory Data (last 24 hrs) 07/29/20 12:10: Sodium 133 L, Potassium 6.3 H*, BUN 119 H, Creatinine 15.10 H*, Glucose 104 07/29/20 12:10: WBC 11.5 H, Hgb 10.9 L, Hct 32.8 L, Plt Count 180 Imagings Data: EXAM DESCRIPTION: CT - Pelvis Wo Cont - 07/29/2020 1:25 pm CLINICAL HISTORY: PAIN Left leg pain COMPARISON: No comparisons TECHNIQUE: All CT scans are performed using dose optimization technique as appropriate and may include automated exposure control or mA/KV adjustment according to patient size. FINDINGS: Mild spondylosis is seen at the lumbosacral junction. Both sacral ala are intact. Sacroiliac joints are symmetric. Mild moderate degenerative changes are present in both hips. No evidence of fracture, dislocation or AVN pattern. No intrapelvic mass or hematoma. Moderate bilateral fat containing inguinal hernias, greater on the right. Aortoiliac atherosclerosis. IMPRESSION: Lbfy-gy-[id number] degenerative change in the lower lumbar spine as well as both hips. No acute finding is demonstrated. Conclusions/Impression: A/ ESRD on HD Hyponatremia Hyperkalemia HTN with CKD/ CHF Diastolic CHF, chronic DM II with CKD Anemia in CKD KHALIF/ Secondary HyperPTH BL hip pain with LE weakness P/ Continue current POC and Medications. Arrange for acute HD with UF. Give Retacrit. Restart home meds as indicated. Ortho evaluation of the hip pain. Renal diet. No NSAIDs. AM labs. Daily weight. Thank you kindly for the consultation. Case reviewed with Dr. Morris.
--- NOTE | 2020-07-29 23:31 | CON ---
Date of Consultation: 07/29/2020 Reason For Consultation: Left hip pain. History Of Present Illness: Mr. Morales is a 74-year-old male with past history of ESRD on hemodialys is, hypertension, diabetes, and mechanical valve, who presented to the ER with left hip pain. The geovanna flaherty undergoes dialysis Saturday, Saturday, Fridays and he missed Saturday and Saturday of this week d ialysis secondary to left hip pain and inability to mobilize and get into his car to go to dialysis. He had x-rays and CAT scan in the emergency room, which were negative for any fracture or dislocatio n. Review of Systems: As above, otherwise negative. Past Medical History: Includes hypertension, diabetes, ESRD. Past Surgical History: Includes mechanical valve placement, TURP, and colonic mass resection. Home Medications: Amlodipine, lidocaine-prilocaine cream, metoprolol, Lyrica, Crestor, Flomax, Couma din. Allergies: NO KNOWN DRUG ALLERGIES. Social History: Denies tobacco or alcohol use. Lives at home. Physical Examination: General: No apparent distress. HEENT: Normocephalic, atraumatic. Neck: Supple. Cardiovascular: Brisk cap refill to all digits. Chest: Nonlabored breathing. Abdomen: Nondistended. Psychiatric: Responds to exam. Musculoskeletal: Bilateral upper extremities functional range of motion without pain. No gross defo rmities. No obvious dislocations. Right lower extremity functional range of motion without pain. N o gross deformities. No obvious dislocations. Left lower extremity with tenderness to palpation ove r the greater trochanter. No erythema or induration. Swelling over the left hip. Pain with resiste d abduction of the left hip. Neurovascularly intact distally. No significant pain with internal and external rotation of the left hip. Diagnostic Studies: X-rays and CAT scan reviewed, showed negative for any fracture or dislocation, b ut do demonstrate some osteoarthritis of the left hip as well as some calcification just lateral to t he greater trochanter. Assessment And Plan: Mr. Morales is a 74-year-old male with left hip trochanteric bursitis. He is cu rrently undergoing dialysis. Recommend conservative treatment measures with oral steroids as tolerat ed and physical therapy to aid with mobilization. He may be weightbearing as tolerated in the left l ower extremity and physical therapy will aid with stretching and strengthening of his abductors. No surgical intervention indicated at this time. He may follow up in the clinic for followup and re-aylin luation. DERREK/JOSE MIGUEL Voice ID: [id number] Report ID: [id number]
[2020-07-30 06:22] LABS: Absolute Lymphocytes (CBC) 0.9 K/uL (0.7-4.9); Basophils % 0.6 % (0-1.3); Hematocrit 31.5 % (39.6-49.0); Lymphocytes % 11.5 % (15.3-44.8); MPV 9.3 fL (7.6-11.3); RBC Red Blood Cell Count 3.35 M/uL (4.33-5.43)
[2020-07-30 06:34] LABS: Protime INR 2.94
[2020-07-30 07:08] LABS: Albumin 2.8 g/dL (3.4-5.0); Bilirubin Total 0.4 mg/dL (0.2-1.0); Magnesium 2.7 mg/dL (1.8-2.4); Phosphorus 8.3 mg/dL (2.5-4.9); Potassium 5.5 mmol/L (3.5-5.1); Protein, Total 8.1 g/dL (6.4-8.2)
[2020-07-30] MEDS: INSULIN -REGULAR HUMAN 50 UNIT/0.5 ML ML SQ SCH ×4 (07:30→21:00)
[2020-07-30] MEDS: SEVELAMER CARBONATE 800 MG TABLET PO SCH ×3 (08:00→16:01)
[2020-07-30] MEDS ORDERED: ROSUVASTATIN 10 MG TAB PO SCH (09:00)
[2020-07-30] MEDS: DOCUSATE NA 100 MG CAP PO SCH ×2 (09:00→21:00)
[2020-07-30] MEDS ORDERED: MULTIVITAMINS,THERAPEUT 1 TAB PO SCH (09:00)
[2020-07-30] MEDS ORDERED: TAMSULOSIN 0.4 MG SR CAP PO SCH (09:00)
[2020-07-30] MEDS ORDERED: CALCITROL 0.25 MCG CAP PO SCH (09:00)
[2020-07-30] MEDS ORDERED: VITAMIN D 5,000 UNIT CAP PO SCH (09:00)
[2020-07-30] MEDS ORDERED: AMLODIPINE 10 MG TAB PO SCH (09:00)
[2020-07-30] MEDS: METOPROLOL TAR 50 MG TAB PO SCH ×2 (09:15→22:29)
[2020-07-30] MEDS: predniSONE 20 MG TAB PO SCH ×2 (09:17→22:29)
[2020-07-30 09:22] VITALS: O2SAT 95
[2020-07-30] MEDS ORDERED: PNEUMOCOCCAL VACCINE 0.5 ML IMVAC ONE (12:00)
[2020-07-30] MEDS ORDERED: WARFARIN SODIUM 2.5 MG TAB PO SCH (17:00)
--- NOTE | 2020-07-30 18:47 | P.DS ---
Admission Date: 07/29/20 Discharge Date: 07/30/20 Disposition: ROUTINE DISCHARGE Discharge Condition: GOOD Reason for Admission: Hip Pain/ Leg Weakness Consultations: Nephrology - Dr. Solano Orthopedic Surgery - Dr. Hopson Procedures: Hip Xray (07/29): Mild osteoarthritis of the left hip is seen. No acute fracture or dislocation seen. Vascular calcification is evident. Pelvis Xray (07/29): Mild arthritic changes in both hips. No acute fracture or dislocation seen. CT Pelvix (07/29): Mild spondylosis is seen at the lumbosacral junction. Both sacral ala are intact. Sacroiliac joints are symmetric. Mild moderate degenerative changes are present in both hips. No evidence of fracture, dislocation or AVN pattern. No intrapelvic mass or hematoma. Moderate bilateral fat containing inguinal hernias, greater on the right. Aortoiliac atherosclerosis. Problem List: ESRD on hemodialysis Left trochanteric bursitis HTN DM 2-diet controlled Mechanical valve on warfarin Brief History of Present Illness: 74yo M, PMH: ESRD on hemodialysis, HTN, DM 2, mechanical valve on warfarin, TURP who presented to the ED due to severe left hip pain. He reports his left hip pain began earlier this week and progressively worsened. He was unable to bear any weight and due to this he missed his last 2 dialysis appointments. Imaging negative for acute pathology. On my exam, felt to have left trochanteric bursitis. In the ED was found to have a mild leukocytosis of 11.5, hyperkalemia 6.3, creatinine: 15.1. Hospital Course: He was brought in for urgent hemodialysis. Unfortunately, he was only able to complete partial dialysis due to an issue with the chlorine filter had to stay for a second round of dialysis the following day. Orthopedic surgery (Dr. Hopson) was consulted due to severity of L hip pain. He agreed that patient was dealing with left trochanteric bursitis and recommended PT. Patient was started on prednisone and had some notable improvement in pain. He is discharged with a short prednisone taper. Vital Signs/Physical Exam: Temp Pulse Resp BP Pulse Ox 97.2 F 61 18 159/70 H 96 07/30/20 16:00 07/30/20 16:00 07/30/20 18:28 07/30/20 16:00 07/30/20 18:28 General: Alert, In no apparent distress, Oriented x3 HEENT: Mucous membr. moist/pink, Sclerae nonicteric Neck: No LAD Respiratory: Clear to auscultation bilaterally Cardiovascular: Regular rate/rhythm, Normal S1 S2, Edema (1-2+ bilateral to knees) Gastrointestinal: Normal bowel sounds, Soft and benign, Non-distended, No tenderness Musculoskeletal: Tenderness (point TTP over left greater trochanter with some mild swelling, no pain with passive ROM of L hip, +pain with resisted abduction of L hip) Integumentary: No rashes Neurological: Normal speech, Normal affect Laboratory Data at Discharge: WBC 8.2 K/uL (4.3-10.9) D 07/30/20 06:00 Hgb 10.4 g/dL (13.6-17.9) L 07/30/20 06:00 Hct 31.5 % (39.6-49.0) L 07/30/20 06:00 Plt Count 157 K/uL (152-406) 07/30/20 06:00 PT 34.0 SECONDS (9.5-12.5) H 07/30/20 06:00 INR 2.94 07/30/20 06:00 Sodium 134 mmol/L (136-145) L 07/30/20 06:00 Potassium 5.5 mmol/L (3.5-5.1) H 07/30/20 06:00 BUN 89 mg/dL (7-18) H D 07/30/20 06:00 Creatinine 12.20 mg/dL (0.55-1.3) H* D 07/30/20 06:00 Glucose 117 mg/dL (74-106) H 07/30/20 06:00 Phosphorus 8.3 mg/dL (2.5-4.9) H 07/30/20 06:00 Magnesium 2.7 mg/dL (1.8-2.4) H 07/30/20 06:00 Total Bilirubin 0.4 mg/dL (0.2-1.0) 07/30/20 06:00 AST 12 U/L (15-37) L 07/30/20 06:00 ALT 24 U/L (12-78) 07/30/20 06:00 Alkaline Phosphatase 64 U/L (45-117) 07/30/20 06:00 Home Medications: Amlodipine [Norvasc*] 10 mg PO DAILY 07/29/20 Lidocaine/Prilocaine [Lidocaine-Prilocaine Cream] 1 appl TOP M,W,F PRN 07/29/20 Metoprolol Tartrate 50 mg PO BID 07/29/20 Pregabalin 75 mg PO DAILY PRN 07/29/20 Rosuvastatin [Crestor*] 20 mg PO DAILY 07/29/20 Tamsulosin HCl [Flomax] 0.4 mg PO DAILY 07/29/20 Warfarin Sodium 2.5 mg PO DAILY 07/29/20 predniSONE [Prednisone] 20 mg PO SEECOM #11 tablet 07/30/20 New Medications: predniSONE [Prednisone] 20 mg PO SEECOM #11 tablet Patient Discharge Instructions: Continue dialysis as scheduled. Medication changes. -prednisone 20 mg tablet - take twice a day for 3 days, then take once a day for 3 days, then take half a pill daily for 4 days Diet: Renal Activity: Ad abena Followup: Herberth Solano DO [ACTIVE - CAN ADMIT] - (Follow up at regularly scheduled hemodialysis) Jason Hopson MD [ACTIVE - CAN ADMIT] - (Follow up as needed ) Time spent managing pt's care (in minutes): 35
[2020-07-30 22:29] VITALS: BP 170/76
[2020-07-30 22:40] VITALS: TEMP 98.2
== END 2020-07-30 22:47 | disposition home or self-care (01) ==
LOC: ER 11:39 → ERHOLD 14:11 → 2ND 16:51
PROVIDERS: ADMIT Hospitalist; ATTEND Hospitalist
DX: M70.62 Trochanteric bursitis, left hip (principal); I13.2 Hypertensive heart and chronic kidney disease with heart failure and with stage 5 chronic kidney disease, or end stage renal disease; E11.22 Type 2 diabetes mellitus with diabetic chronic kidney disease; N18.6 End stage renal disease; Z99.2 Dependence on renal dialysis; Z20.828 Contact with and (suspected) exposure to other viral communicable diseases; Z95.2 Presence of prosthetic heart valve; Z79.01 Long term (current) use of anticoagulants; E87.5 Hyperkalemia; E87.1 Hypo-osmolality and hyponatremia; I50.32 Chronic diastolic (congestive) heart failure; D63.1 Anemia in chronic kidney disease; N25.81 Secondary hyperparathyroidism of renal origin; Z23 Encounter for immunization
CPT/HCPCS: 85025 ×2; 80048; 36415; 83735; 84100; 85610; 82947 ×6; 80053; 72192; 72170; 73502; 90471; 90732; 97110; 97161; 96374; 99285; U0002; J3010; J1644; Q5106; G0378 ×3; J7512

== ENCOUNTER 2020-09-21 20:00 | Inpatient (IN) | payer OTHER ==
[2020-09-21] MEDS ORDERED: MORPHINE 4 MG/ML SYR ONE (20:58)
[2020-09-21 21:12] LABS: Basophils % 0.5 % (0-1.3); Hematocrit 34.1 % (39.6-49.0); Lymphocytes % 7.8 % (15.3-44.8); MPV 9.5 fL (7.6-11.3); RBC Red Blood Cell Count 3.68 M/uL (4.33-5.43)
[2020-09-21 21:46] LABS: Protime INR 2.93
[2020-09-21 21:56] LABS: Potassium 4.5 mmol/L (3.5-5.1); Troponin (Emerg Dept Use Only) 0.3 ng/mL (0.0-0.045)
--- OUTSIDE RECORDS SUMMARY | 2020-09-21 21:56 | XMS REPORT | Clinical Summary ---
:1945 Author Organization [facility] Address [address] [place] [address] Care Team Providers Name Role Phone Arnol [...] INFLUENZA VACCINE 05/14/2020 Results Not on fileafter 09/21/2019 Insurance Payer Benefit Plan / Subscriber ID Effective Dates Phone Addre ss Type Group HUMANA MEDICARE HUMANA MEDICARE [id number] 2014-Present PPO PPO/PFFS/ERS MCR NavidpedritoJohn Paul franks Transplant Self 1945 [address] [place], [place] [address] Advance Directives For more information, please contact: [phone] Type Date Recorded Patient News Cameraman Explanati on Advance Directives, Living Will and Medical Power of Physical Security Manager
--- OUTSIDE RECORDS SUMMARY | 2020-09-21 21:56 | XMS REPORT | Clinical Summary ---
:1945 Author Organization [facility] Address [address] [place] [address] Care Team Providers Name Role Phone Pcp, [...] Health Maintenance Due Date Last Done Comments COLON CANCER SCREENING COLONOSCOPY 1945 PNEUMOCOCCAL 65+ YRS (1 of 1 - [id number]) 2009 MEDICARE ANNUAL WELLNESS (YEAR 2 or FIRST YEAR if no 10/15/2018 IPPE) INFLUENZA VACCINE (#1) 2020 Results Not on fileafter 09/21/2019 Insurance Payer Benefit Plan / Subscriber ID Effective Phone Address T ype Group Dates HUMANA - HUMANA [id number] 2017-Sunny Beavers Contracted MEDICARE MGD MEDICARE ADV nt CARE
--- OUTSIDE RECORDS SUMMARY | 2020-09-21 21:57 | XMS REPORT | Continuity of Care Document ---
:1945 Author Organization [employer] Care Team Providers Name Role Phone [employer] Unavailable Un available Problems Problem Status Onset Classification Date Comments Sourc e Date Reported Urinary tract Sug ar infection, site not 019 9 [place] specified Retention of urine, [place] unspecified 019 9 [place] URINARY RETENTION Active [place] 019 [place] S/P AVR/ [place]B [place] [address] [place] [address] Abdominal distension The (gaseous) 019 9 [place] R14.[address] Nonrheumatic aortic [facility] (valve) stenosis 018 9 [facility] NONRHEUMATIC AORTIC Active 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 [facility] OPID [place],[facility] [place] BENIGN PROSTATIC Active [place] HYPERTROPHY WITH 015 Geremias d OBSTRU Benign prostatic Active Problem Data Medical hypertroph with 014 0 migrated Grou p, outflow obstruction from [facility] (disorder) [facility] on 03/12/15. Center,M H OPID [place],[facility] [place] Finding of frequency Active Problem Data Medical of urination (finding) 014 0 migrate d Group, from [facility] on 03/12/15. Center,M H OPID [place],[facility], [place] Glycosuria (finding) Active Problem Data Medical 014 0 migrated Group, from [facility] on 03/12/15. Center,M H OPID [place],[facility], [place] Microscopic hematuria Active Problem Data Medical (disorder) 014 0 migrated Group, from [facility] on 03/12/15. Center,M H OPID [place],[facility], [place] Metabolic syndrome X Active Problem Data Medical (disorder) 013 0 migrated Group, from [facility] on 03/12/15. Center,M H OPID [place],[facility], Hayes Mixed hyperlipidemia Active Problem Data Medical (disorder) 013 0 migrated Group, from [facility] on 03/12/15. Center,M H OPID [place],[facility] [place] hyperlipidemia(Confirm Active Problem Sugar ed) 010 5 Land hypertension(Confirmed Active Problem Sugar ) 010 5 [place] Hypertension Active Problem Prime[facility] re 4 Med Group Hyperlipemia Active Problem Prime[facility] re 4 Med Group Chronic kidney Active Problem [facility] disease, stage III 4 M ed Group Acute ethmoidal Active Diagnosis Prim [facility]Care sinusitis 3 Med Group Backache (finding) Resolved Problem M Medical 0 Group,[facility], OPID [place],[facility] [place] Benign prostatic Active Problem Medical hyperplasia (disorder) 0 Group,[facility], OPID [place],[facility] [place] Chronic back pain Active Problem Medical (disorder) 0 Group,[facility], OPID [place],[facility] [place] Chronic renal Active Problem Med ical impairment (disorder) 0 Group,[facility], OPID [place],[facility], [place] Chronic kidney disease Active Problem Data Medical stage 3 (disorder) 0 migrated G roup, from [facility] on 03/12/15. Center,M H OPID [place],[facility], [place] Diabetes mellitus type Active Problem Medical 2 (disorder) 0 Group,M [facility], OPID [place],[facility], [place] Essential hypertension Active Problem Data Medical (disorder) 0 migrated Group, from [facility] on 03/12/15. Center,M H OPID [place],[facility], [place] Hypertensive disorder, Active Problem Medical systemic arterial 0 Gr oup,[facility] (disorder) ,[facility], OPID [place],[facility], [place] Hypogonadism Active Problem Data Medi judith (disorder) 0 migrated Group, from [facility] on 03/12/15. Center,M H OPID [place],[facility], [place] Hypokalemia (disorder) Active Problem Medical 0 Group,[facility], OPID [place],[facility] [place] Obesity (disorder) Active Problem Data [facility] Medical 0 migrated Group, from [facility] on 03/12/15. Center,M H OPID [place],[facility], [place] Pain (finding) Active Problem Me dical 0 Group,[facility], OPID [place],[facility], [place] Renal failure syndrome Active Problem Medical (disorder) 0 Group,[facility], OPID [place],[facility], [place] Seasonal allergic Active Problem Medical rhinitis (disorder) 0 Group,[facility], OPID [place],[facility], [place] Swelling of lower limb Resolved Problem Medical (finding) 0 Group,[facility], OPID [place],[facility] [place] Neoplasm of colon Active Problem Medical (disorder) 0 Group,[facility], OPID [place],[facility] [place] Alteration in patterns Active Problem increas ed Medical of urinary elimination 0 frequen cy Group, (finding) [facility], OPID [place],[facility] [place] Diabetes mellitus Resolved Problem Medical (disorder) 0 Group,[facility] I ,[facility] [place] End stage renal Resolved Problem [facility] edical disease (disorder) 0 G roup,[facility] ,[facility] [place] Cholesterol Active Problem OPID (substance) 5 [place], [place] Retention of urine Active Problem [facility] Medical (disorder) 0 Group, [place] Urinary tract Active Problem Med ical infectious disease 0 G roup, (disorder) Sugar Geremias d Chest pain, 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 aorta Medical Center Other nonspecific [facility] abnormal finding of [address] [place] [address] lung field Center Umbilical hernia [facility] without obstruction or [address] [place] [address] gangrene Center Bilateral inguinal 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 cigarettes, [address] [place] [address] uncomplicated Center Acquired absence of 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 [address] [place] [address] Pupillary abnormality, [facility] left eye 7 Hypercholesterolemia Active Problem [facility] (disorder) 7 Hyperlipidemia Active Problem [facility] (disorder) 7 BPH W URINARY OBS/LUTS Active [place] Medications Medication Details Route Status Patient Ordering [...] day, # 6 cap, 0 Refill(s), Pharmacy: [facility]/pharmacy #[id number] Ciprofloxacin 500 mg = 1 [...] mg 50 mg = 1 tab, Active [place] oral tablet, PO, Q12H, # 60 2019 Medi judith extended release tab, 0 Center Refill(s) gabapentin 100 100 mg = 1 cap, Active H [place] MG Oral Capsule PO, Q12H, # 60 2019 M edical cap, 0 Center Refill(s) gabapentin 300 300 mg, 1 cap, Inactive H [place] MG Oral Capsule Route: PO, Drug 2019 Medical form: CAP, Center Daily, Dosing Weight 116.534, kg, Start date: 11/25/18 9:00:00 MANAGER HVAC, Duration: 30 day, Stop date: 12/24/18 9:00:00 CDT Colchicine Notes: 0.3 mg = Inactive [place] 10/15 x 0.6 mg 2019 [facility] tab Center Warfarin Notes: Nurse to Inactive [place] as ensure 2019 Medical documentation Center of patient education per anticoagulation policy. Avoid large intake of vitamin-K containing foods diet. (Same As: Coumadin) WASTE: F/P - P Waste Black; E - P Waste Black DME Addition #1 See Active [place] Instructions, 2019 [facility] INR Center Therapeutic level: INR 2-3, # [...] Weight 116.534, kg, Start date: 11/21/18 17:00:00 MANAGER HVAC, Duration: 30 day, Stop date: 12/21/18 9:00:00 [...] [place] extended release PO, Daily, 2019 [facility] Dosing Weight Center 116.534, kg, Priority: NOW, Start date: 11/19/18 10:31:00 MANAGER HVAC, Duration: 30 day, Stop date: 12/19/18 9:00:00 MANAGER HVAC Fentanyl Notes: (Same Inactive Bassem as: Sublimaze) 2019 Medical Preservative Center free. Finasteride 5 mg, Route: No Longer [place] PO, Drug form: Active 2019 Medical TAB, Daily, Center Dosing Weight 116.534, kg, Start date: 11/19/18 9:00:00 MANAGER HVAC, Duration: 30 day, Stop date: 12/18/18 9:00:00 MANAGER HVAC Glucagon 1 mg, Route: No Longer Bassem IM, Drug form: Active 2019 Medical PDR/INJ, PRN, Center Dosing Weight 116.534, kg, PRN Blood Glucose Results, Start date: 11/19/18 7:58:00 MANAGER HVAC, Duration: 30 day, Stop date: 12/19/18 7:57:00 MANAGER HVAC Dextrose 50% 25 gm, 50 mL, No Longer Bassem Syringe Route: IVP, Active 2019 Medical Drug Form: INJ, Center Dosing Weight 116.534, kg, PRN, PRN Blood Glucose Results, Start date: 11/19/18 7:58:00 MANAGER HVAC, Duration: 30 day, Stop date: 12/19/18 7:57:00 MANAGER HVAC Insulin Lispro Notes: (Same No Longer Bassem [...] Oral Tablet Route: PO, Drug Active 2018 [facility] form: TAB, BID, Center Dosing Weight 116.534, kg, Start date: 11/18/18 21:00:00 MANAGER HVAC, Duration: 30 day, Stop date: 12/18/18 17:00:00 MANAGER HVAC sennosides, [facility] Notes: (Same No Longer H [place] 8.6 MG Oral as: Senokot) Active 2019 Medical Tablet Center atorvastatin Notes: (Same No Longer [place] as: Lipitor) Active 2019 [facility] heparin sodium, Notes: porcine No Longer [place] porcine 2500 heparin Active 2019 [facility] UNT/ML Center Injectable Solution Cefazolin Notes: (Same as Inactive [place] Ancef) 2019 [facility] Simethicone Notes: (Same No Longer [place] as: Mylicon) Active 2019 [facility] Acetaminophen Notes: Max No Longer [place] acetaminophen Active 2019 Medical 4000 mg/day (4 Center gm/day). (Same as: Tylenol Extra Strength) Flomax Notes: (Same No Longer [place] As: Flomax) Active 2019 Medical "Do Not Crush" [place] Finasteride Notes: (Same No Longer [place] as: Proscar) Active 2019 Medical "Do Not Crush" Center Women of childbearing age should not touch or handle broken tablets Oxycodone Notes: (Same No Longer [place] Hydrochloride 5 as: Roxicodone) Active 2019 Medical MG Oral Tablet Center gabapentin 100 Notes: (Same No Longer [place] MG Oral Capsule as: Neurontin) Active 2019 [facility] pantoprazole Notes: Tablet Inactive T [...] Active 2019 Medica l Ointment Drug form: [place] OINT, Start date: 11/18/18 9:00:00 MANAGER HVAC, Duration: 5 day, Stop date: 11/22/18 17:00:00 MANAGER HVAC Aspirin 81 MG Notes: Do not No Longer [facility] Chewable Tablet crush or chew. Active 2018 edical (Same As: [place] Ecotrin) tramadol Notes: Not to [facility] Longer [facility] hydrochlor[facility] 50 exceed Active 2019 Medical MG Oral Tablet 400mg/day. Center (Same As: [facility]) Oxycodone Notes: (Same Inactive [facility] Hydrochloride 5 as: Roxicodone) 2019 Medical MG Oral Tablet [facility] Notes: Infuse Inactive [facility] over 15 minutes 2019 Medical Do not exceed [place] 4gm/day of acetaminophen MEDICATION WASTE Product Size: 1000 mg Product Wasted: ___ mg ocular lubricant Notes: (Same Inactive 11/18[facility] as: Lacri-Lube, 2019 [facility] Puralube, [place] Duratears Naturale, Artificial Tears, and Tears Again ) [facility] or = 50 kg, Inactive Bassem Start date: 2018 Medical 11/18/18 [place] 0:00:00 MANAGER HVAC, Duration: 1 day, Stop date: 11/18/18 18:00:00 MANAGER HVAC albumin human 5% Notes: LOT#: No Longer Bassem intravenous Active 2019 Medica l solution Mfg: Center WASTE: F/P - Red; E -Red (Same as: Albuminar) "blood product derivative" Sodium Chloride 500 mL, 500 Inactive Bassem 0.9% (Bolus) IV ml/hr, Infuse 2019 [place] dical Over: 1 hr, [place] Route: IV, ONCE, Priority: STAT, Dosing Weight 116.534 kg, Start date: 11/17/18 23:23:00 MANAGER HVAC, Stop date: 11/17/18 23:23:00 MANAGER HVAC chlorhexidine Notes: (Same No Longer Bassem gluconate 1.2 As: Peridex) Active 2019 Medic al MG/ML [place] Insulin regular Notes: Final No Longer [place] 100 unit + Concentration Active 2019 [facility] 1unit/1ml Center WASTE: F/P - Black; E - Municipal Trash Bin Dextrose 50% 12.5 gm, 25 mL, No Longer [place] Syringe Route: IVP, Active 2019 Medical Drug Form: INJ, Center Dosing Weight 116.534, kg, PRN, PRN Blood Glucose Results, Start date: 11/17/18 19:36:00 MANAGER HVAC, Duration: 30 day, Stop date: 12/17/18 19:35:00 MANAGER HVAC Ofirmev Notes: Infuse Inactive [facility] over 15 minutes 2019 Medical Do not exceed Center 4gm/day of acetaminophen MEDICATION WASTE Product Size: 1000 mg Product Wasted: ___ mg chlorhexidine Notes: (Same No Longer [place] gluconate 1.2 As: Peridex) Active 2019 Medic al MG/ML [place] Center chlorhexidine Notes: (Same No Longer [facility] gluconate 1.2 As: Peridex) Active 2019 Medic al MG/ML [place] Center Fentanyl Notes: (Same No Longer [facility] as: Sublimaze) Active 2019 [facility] Preservative Center free. Albuterol 0.833 Notes: (Same No Longer [place] MG/ML / as: Duoneb) Active 2019 [facility] Ipratropium Center [place] 0.167 MG/ML Inhalant Solution [DuoNeb] Magnesium Oxide 800 mg, Route: Inactive [facility] PO, PRN, Dosing 2019 Medical Weight 116.534, Center kg, PRN Abnormal Lab Result, FOR ICU USE ONLY, Start date: 11/17/18 18:26:00 MANAGER HVAC, Duration: 30 day, Stop date: 12/17/18 18:25:00 MANAGER HVAC Calcium 1 gm, Route: Inactive [facility] Gluconate IVPB, PRN, 2019 Medical Dosing Weight Center 116.534, kg, PRN Abnormal Lab Result, Start date: 11/17/18 18:26:00 MANAGER HVAC, Duration: 30 day, Stop date: 12/17/18 18:25:00 MANAGER HVAC, FOR ICU USE ONLY Calcium 500 mg, Route: Inactive [facility] Carbonate 500 MG PO, PRN, Dosing 2019 Medical Chewable Tablet Weight 116.534, Center kg, PRN Abnormal Lab Result, FOR ICU USE ONLY, Start date: 11/17/18 18:26:00 MANAGER HVAC, Duration: 30 day, Stop date: 12/17/18 18:25:00 MANAGER HVAC potassium 2 pkt, Route: Inactive 11/18[facility] [place] phosphate-sodium PO, Dosing 2019 [facility] judith phosphate 250 Weight 116.534, Ce nter mg-280 mg-160 mg kg, PRN, PRN oral powder for Abnormal Lab reconstitution Result, FOR ICU USE ONLY, Start date: 11/17/18 18:26:00 MANAGER HVAC, Duration: 30 day, Stop date: 12/17/18 18:25:00 MANAGER HVAC Magnesium 2 gm, Route: Inactive 11/18[facility] Bassem Sulfate IVPB, PRN, 2019 Medical Dosing Weight Center 116.534, kg, PRN Abnormal Lab Result, Start date: 11/17/18 18:26:00 MANAGER HVAC, Duration: 30 day, Stop date: 12/17/18 18:25:00 MANAGER HVAC, FOR ICU USE ONLY potassium 15 mmol, Route: Inactive 11/18[facility] [place] phosphate IVPB, PRN, 2019 Medical Dosing Weight Center 116.534, kg, PRN Abnormal Lab Result, Start date: 11/17/18 18:26:00 MANAGER HVAC, Duration: 30 day, Stop date: 12/17/18 18:25:00 MANAGER HVAC, FOR ICU USE ONLY sodium phosphate 15 mmol, Route: Inactive Bassem IVPB, PRN, 2019 Medical Dosing Weight Center 116.534, kg, PRN Abnormal Lab Result, Start date: 11/17/18 18:26:00 MANAGER HVAC, Duration: 30 day, Stop date: 12/17/18 18:25:00 MANAGER HVAC, FOR ICU USE ONLY Potassium 20 mEq, Route: Inactive [place] as Chloride PO, Drug form: 2019 Medical ERTAB, PRN, Center Dosing Weight 116.534, kg, PRN Abnormal Lab Result, Start date: 11/17/18 18:26:00 MANAGER HVAC, Duration: 30 day, Stop date: 12/17/18 18:25:00 MANAGER HVAC, FOR ICU USE ONLY Stimate (ANES) 4 Route: IV, Drug Inactive Bassem microgram Form: INJ, 2019 Medical Start date: Center 11/17/18 17:23:00 MANAGER HVAC, Stop date: 11/17/18 18:23:00 MANAGER HVAC protamine (ANES) Route: IV, Drug Inactive [place] 10 mg form: INJ, 2018 Medical Start date: [place] 11/17/18 17:06:00 MANAGER HVAC, Stop date: 11/17/18 18:06:00 MANAGER HVAC calcium chloride Route: IV, Drug Inactive [place] (ANES) form: INJ, 2018 Medical ONCE, Stop Center date: 11/17/18 17:03:00 MANAGER HVAC heparin (ANES) Route: IV, Drug Inactive Bassem form: INJ, 2018 Medical ONCE, Stop Center date: 11/17/18 15:08:00 MANAGER HVAC lidocaine (ANES) Route: IV, Drug Inactive Bassem form: INJ, 2018 Medical ONCE, Stop Center date: 11/17/18 15:03:00 MANAGER HVAC propofol (ANES) Route: IV, Drug Inactive Bassem form: INJ, 2018 Medical ONCE, Stop Center date: 11/17/18 14:44:00 MANAGER HVAC fentaNYL (ANES) Route: IV, Drug Inactive Bassem form: INJ, 2018 Medical ONCE, Stop Center date: 11/17/18 14:44:00 MANAGER HVAC rocuronium Route: IV, Drug Inactive [place] (ANES) form: INJ, 2018 Medical ONCE, Stop Center date: 11/17/18 14:44:00 MANAGER HVAC midazolam (ANES) Route: IV, Drug Inactive [place] form: SOLN, 2018 Medical ONCE, Stop Center date: 11/17/18 14:44:00 MANAGER HVAC ceFAZolin (ANES) Route: IV, Drug Inactive Bassem form: INJ, 2018 Medical ONCE, Stop Center date: 11/17/18 14:38:00 MANAGER HVAC norepinephrine Route: IV, Drug Inactive [place] (ANES) 10 form: INJ, 2018 Medical microgram Start date: [place] 11/17/18 14:35:00 MANAGER HVAC, Stop date: 11/17/18 15:35:00 MANAGER HVAC vancomycin Route: IV, Drug Inactive [place] (ANES) 1000 mg form: INJ, 2019 Medica l Start date: [place] 11/17/18 14:05:00 MANAGER HVAC, Stop date: 11/17/18 15:05:00 MANAGER HVAC tranexamic acid Route: IV, Drug Inactive Bassem (ANES) 10 mg form: INJ, 2019 Medical Start date: [place] 11/17/18 14:00:00 MANAGER HVAC, Stop date: 11/17/18 15:00:00 MANAGER HVAC Exparel Notes: (Same No Longer Bassem as: [...] mL 500, Start Center date: 11/17/18 13:40:00 MANAGER HVAC, Stop date: 11/17/18 14:40:00 MANAGER HVAC Isolyte S PH 7.4 Route: IV, Inactive Bassem (ANES) 1000 mL Total Volume: 2019 Med ical 1,000, Start Center date: 11/17/18 13:16:00 MANAGER HVAC, Stop date: 11/17/18 14:16:00 MANAGER HVAC Amylases 50627 1 cap, PO, TID, No Longer Bassem UNT / 0 Refill(s) Active 2019 Medical Endopeptidases Center 95166 UNT / Lipase 48341 UNT Delayed Release Oral Capsule [Zenpep] rifaximin [...] 500 mg = 1 tab, No Longer [place] oxyhydroxide 500 PO, 0 Refill(s) Active 2018 [...] 1 1 sprays, Inactive [facility] ML/ML Topical [place], TOP, 2017 [place] Once, first dose 07/29/17 12:00:00 CDT, stop [...] 1 1 sprays, Inactive [facility] ML/ML Topical [place], TOP, 2017 [place] Once, first dose 07/15/17 10:00:00 CDT, stop [...] Notes: (Same Inactive [place] as: Normodyne, 2014 [facility] Trandate) Push over 2 minutes Give bolus over 2-3 minutes. Acetaminophen Notes: Infuse Inactive [place] over 15 minutes 2014 Do not exceed 4gm/day of acetaminophen MEDICATION WASTE Product Size: 1000 mg Product Wasted: ___ mg Naloxone Notes: Same as Inactive [place] Narcan 2014 Flumazenil Notes: (Same Inactive [place] as: Romazicon) 2014 Fentanyl Notes: (Same Inactive [place] as: Sublimaze) 2014 [facility] Preservative free. Ketorolac 4 days Inactive [place] MEDICATION 2014 WASTE Product Size: 30 mg Product Wasted: ___ mg Morphine Notes: (Same Inactive [place] as:MORPhine 2014 [facility] Sulfate) Hydromorphone Notes: (Same Inactive S ugar [...] Inactive S ugar 325 MG / as: [place] 2014 Hydrocodone 325/5) Do not Bitartrate 5 [...] Clonidine 1 patch, TOP, 0 Active [place] 0.17870 MG/HR Refill(s) 2014 Transdermal Patch Crestor PO, Bedtime, 0 Active [place] Refill(s) 2014 ALFUZOSIN ER ALFUZOSIN ER No Longer S ugar 10MG TAB 10MG TAB, 1 Active 2014 [facility] tab, Drug form: MISC, Route: PO, QPM, [...] 0.0014 MEQ/ML / 125 ml/hr, Active 2014 [facility] Potassium Infuse over: 8 Chloride 0.004 hr, Route: IV, MEQ/ML / Sodium Dosing Weight Chloride 0.103 124.318 kg, MEQ/ML / Sodium Total Volume: Lactate 0.028 1,000, Start MEQ/ML date: 11/08/14 Injectable 11:04:00, Solution Duration: 30 day, Stop date: 12/08/14 11:03:00 Ciprofloxacin 2 400 mg, Route: Inactive [place] MG/ML Injectable IVPB, [id number], 2014 Solution [Cipro] Dosing Weight 127.136, kg, [...] Longer H [place] as: BD Active 2014 [facility] Posiflush) alfuzosin 10 mg 10 mg = 1 tab, No Longer [place] oral tablet, PO, Daily, # 30 Active 2014 Geremias d extended release tab, 0 Refill(s) montelukast 10 10 mg = 1 tab, No Longer [place] mg oral tablet PO, QPM, 0 Active 2014 [facility] Refill(s) metoprolol 50 mg = 1 tab, [...] Source Given Updated pneumococcal Right completed [facility] 23-valent 5 deltoid Group, vaccine [facility], OPID [place],[facility], [facility] Depo-medrol 80mg completed Betzaida [facility] Med 3 Group pneumococcal Left completed [place] [facility] 23-valent 0 deltoid Group, vaccine [facility], OPID [place],[facility] e [place], [place] Results Order Name Results Value Reference Date Interpretation Comments Penny rce Range URINE AND UA Color Yellow Yellow 09/03 [place] STOOL *NA* [place] (09/02/19 9:02 PM) URINE AND UA Turbidity Slight Clear 09/03 [place] STOOL *ABN* [facility] (09/02/19 9:02 PM) URINE AND UA Spec Grav 1.011 <=1.030 09/03 [place] STOOL [place] URINE AND UA pH 8.0 5.0 - 8.0 09/03 [place] STOOL [place] URINE AND UA Protein >=300 Negative 09/03 [place] STOOL mg/dL mg/dL [place] URINE AND UA Glucose 500 mg/dL Negative 09/03 [place] STOOL mg/dL [place] URINE AND UA Ketones Negative Negative 09/03 [place] STOOL *NA* /2018 [facility] (09/02/19 9:02 PM) URINE AND UA Bili Negative Negative 09/03 [place] STOOL *NA* [facility] (09/02/19 9:02 PM) URINE AND UA Blood Small Negative 09/03 [place] STOOL *ABN* [facility] (09/02/19 9:02 PM) URINE AND UA <=1.0 0.1 - 1.0 09/03 [place] STOOL Urobilinogen mg/dL /2018 [facility] URINE AND UA Nitrite Negative Negative 09/03 [...] [place] Urine If Identification Or Sensitivity Required, [facility] Microbiology At [phone] Within 48 Hours. CHEM PANEL Magnesium Lvl 2.5 1.8 - 2.4 11/25 [facility] CHEM PANEL Phosphorus 6.1 2.5 - 4.5 11/25 [facility]2018 [facility] ELECTROLYTE AGAP 13.9 10.0 - 11/25 [facility] S 20.0 [facility] ELECTROLYTE eGFR 7 11/25 Result [facility] Comment: The Medical eGFR is Center calculated [...] 3.9 3.5 - 5.1 11/25 [place] [facility] ELECTROLYTE Calcium Lvl 9.4 8.5 - 10.5 11/25 [facility] ELECTROLYTE Glucose Lvl 98 70 - 99 11/25 [facility]2018 [facility] ELECTROLYTE Chloride Lvl 100 95 - 109 11/25 [facility] ELECTROLYTE CO2 29 24 - 32 11/25 [facility]2018 [facility] ELECTROLYTE Sodium Lvl 139 135 - 145 11/25 [facility]2018 [facility] ELECTROLYTE Creatinine 6.85 0.50 - 11/25 [facility] S Lvl 1.40 [facility] ELECTROLYTE BUN 50 7 - 22 11/25 [facility]2018 [facility] HEMATOLOGY PTT 61.4 22.9 - 11/25 [place] 35.8 [facility] HEMATOLOGY INR 2.69 0.85 - 02/12 [place] 1.17 /2018 [facility] HEMATOLOGY PT 28.0 12.0 - 11/25 14.7 2019 [facility] HEMATOLOGY Basophils # 0.1 0.0 - 0.2 11/25 [facility] s [facility] HEMATOLOGY Eosinophils # 0.7 0.0 - 0.5 11/25 [facility] xa [facility] HEMATOLOGY Monocytes # 0.9 0.0 - 0.8 11/25 [facility] HEMATOLOGY Lymphocytes # 1.9 1.0 - 5.5 11/25 [facility] xa [facility] HEMATOLOGY Neutrophils # 7.3 1.5 - 8.1 11/25 [facility] xa [facility] HEMATOLOGY Eosinophils 6.0 0.0 - 4.0 11/25 [facility] HEMATOLOGY Monocytes 8.5 2.0 - 12.0 11/25 [facility] HEMATOLOGY Basophils 0.8 0.0 - 1.0 11/25 [facility] HEMATOLOGY Segs 67.0 45.0 - 11/25 [place] 75.0 2019 [facility] HEMATOLOGY Lymphocytes 17.7 20.0 - 11/25 [place] 40.0 2019 [facility] HEMATOLOGY WBC 11.0 3.7 - 10.4 11/25 [facility] HEMATOLOGY RBC 2.69 4.70 - 11/25 [place] 6.10 2019 [facility] HEMATOLOGY Hct 25.0 42.0 - 11/25 [place] 54.0 2019 [facility] HEMATOLOGY Hgb 8.4 14.0 - 11/25 [place] 18.0 2019 [facility] HEMATOLOGY MCH 31.4 27.0 - 02 [place] 31.0 2019 [facility] HEMATOLOGY MCV 93.0 80.0 - 11/25 [place] 94.0 2019 [facility] HEMATOLOGY MPV 9.2 7.4 - 10.4 11/25 [facility] HEMATOLOGY Platelet 193 133 - 450 11/25 [facility] HEMATOLOGY RDW 15.4 11.5 - 11/25 [place] 14.5 2019 [facility] HEMATOLOGY MCHC 33.7 32.0 - 02 [place] 36.0 2019 [facility] CHEM PANEL Phosphorus 6.7 2.5 - 4.5 11/24 [facility]2018 [facility] CHEM PANEL Magnesium Lvl 2.6 1.8 - 2.4 11/24 [facility] CHEM PANEL eGFR 6 11/24 Result [...] not recommended in the following populations:< br/>
Shlya viduals with unstable creatinine concentration s, including [...] PANEL CO2 28 24 - 32 11/[address] CHEM PANEL Calcium Lvl 9.6 8.5 - 10.5 11/24 [facility] CHEM PANEL BUN 57 7 - 22 11/[address] CHEM PANEL Creatinine 7.59 0.50 - 11/24 [facility] Lvl 1.40 [facility] CHEM PANEL Sodium Lvl 136 135 - 145 11/[address] CHEM PANEL Potassium Lvl 5.3 3.5 - 5.1 11/24 [facility]2018 [facility] CHEM PANEL Chloride Lvl 98 95 - 109 11/24 [facility] 2018 [facility] CHEM PANEL Glucose Lvl 103 70 - 99 11/[address] CHEM PANEL AGAP 15.3 10.0 - 11/24 [place] 20.0 [facility] HEMATOLOGY Lymphocytes # 2.3 1.0 - 5.5 11/24 [facility]2018 [facility] HEMATOLOGY Eosinophils 7.0 0.0 - 4.0 11/24 [facility]2018 [facility] HEMATOLOGY Neutrophils # 5.7 1.5 - 8.1 11/24 [facility]2018 [facility] HEMATOLOGY Monocytes # 0.9 0.0 - 0.8 11/24 [facility] HEMATOLOGY Basophils # 0.1 0.0 - 0.2 11[place] [facility] HEMATOLOGY Eosinophils # 0.7 0.0 - 0.5 11/24 [place]2018 [facility] HEMATOLOGY Lymphocytes 23.6 20.0 - 11/24 [place] 40.0 /2019 [facility] HEMATOLOGY Segs 59.3 45.0 - 11/24 [place] 75.0 /2019 [facility] HEMATOLOGY Monocytes 9.2 2.0 - 12.0 11/24 [facility] HEMATOLOGY Basophils 0.9 0.0 - 1.0 11/24 [facility] HEMATOLOGY MCV 93.1 80.0 - 11/24 [place] 94.0 /2019 [facility] HEMATOLOGY MCHC 34.3 32.0 - 11/24 [place] 36.0 2019 [facility] HEMATOLOGY RDW 15.5 11.5 - 11/24 [place] 14.5 /2019 [facility] HEMATOLOGY Platelet 175 133 - 450 11/24 [facility] HEMATOLOGY WBC 9.7 3.7 - 10.4 11/24 [facility] HEMATOLOGY MCH 32.0 27.0 - 11/24 [place] 31.0 2019 [facility] HEMATOLOGY RBC 2.72 4.70 - 11/24 [place] 6.10 2019 [facility] HEMATOLOGY Hgb 8.7 14.0 - 11/24 [place] 18.0 2019 [facility] HEMATOLOGY Hct 25.3 42.0 - 11/24 [place] 54.0 /2019 [facility] HEMATOLOGY MPV 9.8 7.4 - 10.4 11/24 [facility] HEMATOLOGY INR 2.31 0.85 - 11/24 [place] 1.17 2019 [facility] HEMATOLOGY PTT 79.5 22.9 - 11/24 [place] 35.8 /2019 [facility] HEMATOLOGY PT 24.9 12.0 - 11/24 [place] 14.7 2019 [facility] CHEM PANEL eGFR 9 11/23 Result [...] PANEL BUN 39 7 - 22 11/23 [facility] CHEM PANEL Creatinine 5.64 0.50 - 11/23 [facility] Lvl 1.40 [facility] CHEM PANEL Glucose Lvl 115 70 - 99 11/23 [facility]2018 [facility] CHEM PANEL Sodium Lvl 140 135 - 145 11/23 [facility]2018 [facility] CHEM PANEL Calcium Lvl 9.4 8.5 - 10.5 11/23 [place] [facility] CHEM PANEL Chloride Lvl 100 95 - 109 11/23 [place] [facility] CHEM PANEL AGAP 13.7 10.0 - 11/23 [place] 20.0 [facility] CHEM PANEL Potassium Lvl 3.7 3.5 - 5.1 11/23 [place] [facility] CHEM PANEL CO2 30 24 - 32 11/23 2018 [facility] HEMATOLOGY MCV 93.6 80.0 - 11/23 [place] 94.0 [facility] HEMATOLOGY Hct 25.3 42.0 - 11/23 [place] 54.0 [facility] HEMATOLOGY MCHC 34.7 32.0 - 11/23 [place] 36.0 [facility] HEMATOLOGY RDW 15.7 11.5 - 11/23 [place] 14.5 [facility] HEMATOLOGY Platelet 165 133 - 450 11/23 2018 [facility] HEMATOLOGY MCH 32.5 27.0 - 02 [place] 31.0 [facility] HEMATOLOGY RBC 2.70 4.70 - 11/23 [place] 6.10 [facility] HEMATOLOGY Hgb 8.8 14.0 - 11/23 [place] 18.0 [facility] HEMATOLOGY MPV 9.8 7.4 - 10.4 11/23 2018 [facility] HEMATOLOGY WBC 7.8 3.7 - 10.4 11/23 [facility] HEMATOLOGY INR 1.62 0.85 - 11/23 [place] 1.17 [facility] HEMATOLOGY PTT 77.2 22.9 - 02 [place] 35.8 2019 [facility] HEMATOLOGY PT 18.9 12.0 - 02 [place] 14.7 [facility] HEMATOLOGY Monocytes # 0.7 0.0 - 0.8 11/23 [facility] HEMATOLOGY Eosinophils # 0.6 0.0 - 0.5 11/23 [facility] HEMATOLOGY Basophils # 0.1 0.0 - 0.2 11/23 [facility] HEMATOLOGY Lymphocytes # 1.7 1.0 - 5.5 11/23 [facility] HEMATOLOGY Segs 60.5 45.0 - 11/23 [facility] 75.0 [facility] HEMATOLOGY Lymphocytes 21.3 20.0 - 11/23 [facility] 40.0 [facility] HEMATOLOGY Neutrophils # 4.7 1.5 - 8.1 11/23 [facility] HEMATOLOGY Basophils 1.0 0.0 - 1.0 11/23 [facility] HEMATOLOGY Eosinophils 7.9 0.0 - 4.0 11/23 [facility] HEMATOLOGY Monocytes 9.3 2.0 - 12.0 11/23 [facility] CHEM PANEL Phosphorus 7.6 2.5 - 4.5 11/22 [facility]2018 [facility] CHEM PANEL Magnesium Lvl 2.5 1.8 - 2.4 11/22 [facility] PARATHYROID Ca Norm WB 1.15 1.05 - 11/22 [place] PROFILE 11.07 [facility] PARATHYROID Ca Ion WB 1.18 1.05 - 11/22 [place] PROFILE 11.07 [facility] PARATHYROID Ca Norm WB 1.13 1.05 - 11/20 [place] PROFILE 11.07 [facility] PARATHYROID Ca Ion WB 1.12 1.05 - 11/20 [facility] PROFILE 11.07 [facility] BACTERIAL - MRSA by PCR Negative 11/19 [facility] SEROLOGY (11/19/18 3:06 AM) /2018 [facility] PARATHYROID Ca Norm WB 1.11 1.05 - 11/19 [place] PROFILE 11.07 [facility] PARATHYROID Ca Ion WB 1.10 1.05 - 02 [place] PROFILE 1. [facility] IMMUNOLOGY Hep C Ab Negative 11/18 [place] *NA* /2018 [facility] (11/18/18 5:43 AM) [place] IMMUNOLOGY Hep Bs Ab 66.7 <=7.4 11/18 [place] mIU/mL /2018 [facility] IMMUNOLOGY Hep B Core Negative Negative 11/18 [place] IgM *NA* [facility] (11/18/18 5:43 AM) [facility] IMMUNOLOGY Hep B Core Ab Negative Negative 11/18 [place] *[place]* [facility] (11/18/18 5:43 AM) [place] IMMUNOLOGY Hep Bs Ag Negative Negative 11/18 [place] *NA* [facility] (11/18/18 5:43 AM) [place] BLOOD BANK RBC product Product available 11/17 [place] RESULTS (11/17/18 10:45 AM) /2018 [facility] BLOOD BANK Platelet Product available 11/17 [facility] RESULTS product (11/17/18 10:45 AM) /2018 [facility] BLOOD BANK FFP product Product available 11/17 [facility] RESULTS (11/17/18 10:45 AM) /2018 [facility] BLOOD BANK Antibody Scrn Negative 11/14 [place] RESULTS (11/14/18 2:06 PM) [facility] BLOOD BANK ABO/Rh A POS 11/14 [facility] CHEM PANEL Globulin 3.9 2.7 - 4.2 11/14 [facility] CHEM PANEL A/G Ratio 0.9 0.7 - 1.6 11/14 [facility] CHEM PANEL Bili Direct 0.1 0.0 - 0.3 11/14 [place] [facility] CHEM PANEL Bili Indirect 0.4 0.0 - 1.0 11/14 [place] [facility] CHEM PANEL Alk Phos 91 39 - 136 11/14 [facility] CHEM PANEL Bili Total 0.5 0.2 - 1.3 11/14 [facility] CHEM PANEL Albumin Lvl 3.6 3.5 - 5.0 11/14 [facility] s [facility] CHEM PANEL ALT 21 0 - 65 11/14 [facility] CHEM PANEL AST 12 0 - 37 11/14 [facility] CHEM PANEL Total Protein 7.5 6.4 - 8.4 11/14 [place] [facility] SPECIAL Hgb A1C 6.8 <=5.6 % 11/14 [place] CHEMISTRY [facility] LABORATORY Blood 152 74 - 106 07/29 [facility] Glucose, Capillary LABORATORY Blood 139 74 - 106 07/15 [facility] Glucose, Capillary ELECTROLYTE Sodium Lvl 142 135 [...] eGFR 13 08/29 Result [place] Comment: The [facility] eGFR is calculated using the CKD-EPI formula. [...] 138 70 - 99 11/01 <sup>2</sup>I nterpretive [facility] Data: Adult reference range values reflect the clinical guidelines
of the [place] [employer]. CHEM PANEL Sodium Lvl 143 [...] RBC 4.89 4.70 - 11/01 [place] 6.10 [facility] HEMATOLOGY Hgb 14.3 14.0 - 11/01 [place] 18[place]0 [place] HEMATOLOGY WBC 10.6 3.7 - 10.4 11/01 [facility] HEMATOLOGY RDW 12.7 11.5 - 11/01 [place] 14.5 /2014 [place] HEMATOLOGY MCHC 33.1 32.0 - 11/01 [place] 36.0 /2014 [facility] HEMATOLOGY Hct 43.3 42.0 - 11/01 [place] 54.0 /2014 [facility] HEMATOLOGY MCV 88.6 80.0 - 11/01 [place] 94.0 /2014 [facility] HEMATOLOGY MCH 29.3 27.0 - 11/01 [place] 31.0 /2014 [facility] HEMATOLOGY Segs-Bands # 7.7 1.5 - 8.1 11/01 [place] /2014 [facility] HEMATOLOGY Basophils # 0.0 0.0 - 0.2 11/01 [place] /2014 [facility] HEMATOLOGY Monocytes # 0.5 0.0 - 0.8 11/01 [place] [facility] HEMATOLOGY Eosinophils # 0.2 0.0 - 0.5 11/01 [place] [facility] HEMATOLOGY Lymphocytes # 2.3 1.0 - 5.5 11/01 [place] /2014 [facility] HEMATOLOGY Segs 72.1 45.0 - 11/01 [place] 75.0 [facility] HEMATOLOGY Lymphocytes 21.4 20.0 - 11/01 [place] 40.0 [facility] HEMATOLOGY Monocytes 4.5 2.0 - 12.0 11/01 [place] [facility] HEMATOLOGY Basophils 0.3 0.0 - 1.0 11/01 [place] [facility] HEMATOLOGY Eosinophils 1.7 0.0 - 4.0 11/01 [place] /2014 [facility] SPECIAL Hgb A1C 7.1 <=5.6 % 11/01 [place] CHEMISTRY [facility] Pathology Reports No Data Provided for This Section Diagnostic Reports Report Value Date Source Chest 1view DX EXAM: XR CHEST 1 VIEW 11/21/2018 [facility] edical DATE: 11/21/2018 3:00 [facility] INDICATION: - abnormal lung sounds COMPARISON: [...] DX EXAM: XR CHEST 1 VIEW 11/19/2018 [facility] edical DATE: 11/19/2018 3:00 [facility] Center INDICATION: Abnormal chest sounds - abnomral [...] DX EXAM: XR CHEST 1 VIEW 11/18/2018 [facility] edical DATE: 11/18/2018 3:00 [facility] Center INDICATION: - s/p aortic valve replacement [...] Placement EXAM: XR CHEST 1 VIEW 11/17/2018 [facility] DX DATE: 11/17/2018 18:58 [facility] Center INDICATION: Tube placement - s/p AVR [...] DX EXAM: XR CHEST 2 VIEWS 11/14/2018 [facility] DATE: 11/14/2018 10:54 [facility] Center INDICATION: Severe Aortic Stenosis - Severe [...] distention. Abdominal pain for 2 years.. 10/30/2018 [facility] [place] [facility] Comparison: None TECHNIQUE: Hepatobiliary scan is perfor [...] underlying biliary dyskinesia or chronic cholecystitis. SL: [id number] Heart/coronary art TAVR EXAM: CTA HEART WITH CONTRAST 10/01/2018 [facility] CTA DATE: 10/01/2018 Center INDICATION: - Aortic Stenosis. Aortic stenosis, TAVR candidate, CAD COMPARISON: None TECHNIQUE: Contrast imaging was perform ed on a Bety Aquilion 320 slice MDCT scanner, utilizing a single breath-hold, space at 750 mA and 120 kV. A preliminary computing architect study was obtained. Retrospective ECG gating wa s performed, at a heart rate of 63-69 bpm. Images were reformatted at 0.5 mm intervals and sent to the [employer] workstation for interpretation of 3D anatomic reconstructions, [...] bulky leaflet: No; right/left/noncoronary Coplanar TAVR angle: MAORI 2 CAU 2 Aortic annulus: 26.8 x [...] EXAM: CTA CHEST WITH CONTRAST 10/01/20 18 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 Bladder: [...] contours in the kidneys bilaterally could be merchandising representative of medical renal disease or scarring [...] for use in pediatric patients. See daniela deo le guidelines. \\S\\Fleischner recommends con sidering 'all [...] [place] Heart Rate 68 09/03/2019 [place] Respitory Rate 18 09/03/2019 [place] Systolic (mm Hg) 135 09/03/2019 [place] Diastolic (mm Hg) 79 09/03/2019 [place] and Systolic (mm Hg) 130 09/03/2019 [place] Diastolic (mm Hg) 75 09/03/2019 [place] and Heart Rate 72 09/03/2019 [place] Respitory Rate 16 09/03/2019 [place] Temperature Oral (F) 98.1 F 09/03/2019 [place] Weight 106.5 09/03/2019 [place] Systolic (mm Hg) 134 08/06/2019 [facility] [...] oup Temperature Oral (F) 97.5 F 07/28/2019 [facility] BMI Calculated 33.71 12/08/2018 [facility] Center Weight 115.909 12/08/2018 [facility] Height 185.42 cm 12/08/2018 [facility] Systolic (mm Hg) 152 11/25/[address] [facility] dical Center Diastolic (mm Hg) 67 11/25/2018 [facility] Respitory Rate 14 11/25/2018 [facility] Systolic (mm Hg) 110 11/25/[address] [facility] dical Center Diastolic (mm Hg) 56 11/25/2018 [facility] Respitory Rate 24 11/25/2018 [facility] Temperature Oral (F) 97.6 F 11/25/2018 [facility] [place] Systolic (mm Hg) 145 11/25/[address] [facility] dical Center Diastolic (mm Hg) 64 11/25/2018 [facility] edical Center Respitory Rate 18 11/25/2018 [facility] Temperature Oral (F) 97.8 F 11/25/2018 [facility] [place] Temperature Oral (F) 97.7 F 11/25/2018 [facility] Center Height 182.88 cm 11/18/2018 [facility] Height 182.88 cm 11/18/2018 [facility] Weight 116.534 11/17/2018 [facility] Height 182.88 cm 11/17/2018 [facility] l Center BMI Calculated 34.84 11/17/2018 [facility] Center Weight 119.1 11/14/2018 [facility] Med[facility] l Center BMI Calculated 36.62 11/14/2018 [facility] Center BMI Calculated 34.14 10/30/2018 [facility] Weight 117.364 10/30/2018 [facility] Height 185.42 cm 10/30/2018 [facility] Height 185.42 cm 10/28/2018 [facility] BMI Calculated 34.77 10/28/2018 [facility] Weight 119.545 10/28/2018 [facility] Systolic (mm Hg) 121 10/01/[address] [facility] dical Center Diastolic (mm Hg) 70 10/01/2018 [facility] edical [place] BMI Calculated 33.05 10/01/2018 [facility] judith Center Weight 113.636 10/01/2018 [facility] Height 185.42 cm 10/01/2018 [facility] Temperature Oral (F) 98.3 F [...] L and Respitory Rate 18 08/29/2015 [facility] [place] Respitory Rate 16 08/29/2015 [facility] [place] Systolic (mm Hg) 156 08/29/2015 [facility] [place] Diastolic (mm Hg) 76 08/29/2015 [facility] [place] and Systolic (mm Hg) 151 08/29/2015 [facility] [place] Diastolic (mm Hg) 72 08/29/2015 [place] and Respitory Rate 10 08/29/2015 [place] Heart Rate 56 08/29/2015 [facility] [place] Weight 116.091 08/29/2015 [place] BMI Calculated 33.77 08/29/2015 [facility] [place] Height 185.42 cm 08/27/2015 [place] Temperature Oral (F) 98.2 F 11/10/2014 [place] Heart Rate 66 11/10/2014 [place] Respitory Rate 20 11/10/2014 [facility] [place] Diastolic (mm Hg) 70 11/10/2014 [facility] [place] Systolic (mm Hg) 123 11/10/2014 [place] Temperature Oral (F) 98.0 F 11/10/2014 [place] Heart Rate 65 11/10/2014 [place] Respitory Rate 18 11/10/2014 [facility] [place] Systolic (mm Hg) 165 11/10/2014 [facility] [place] Diastolic (mm Hg) 88 11/10/2014 [facility] [place] and Heart Rate 61 11/10/2014 [place] Respitory Rate 16 11/10/2014 [facility] [place] Diastolic (mm Hg) 64 11/10/2014 [facility] [place] and Systolic (mm Hg) 130 11/10/2014 [place] Temperature Oral (F) 98.1 F 11/10/2014 [place] Height 185.42 cm 11/08/2014 [facility] [place] BMI Calculated 36.09 11/08/2014 [place] Weight 124.091 11/08/2014 [place] Weight 124.318 11/08/2014 [place] BMI Calculated 36.16 11/08/2014 [place] Height 185.42 cm 11/01/2014 [place] Temperature Oral (F) 96.8 F 05/12/2013 [facility] [...] Location Location Encounter Encounter Reason Attending ADM [facility] Stat Source Details Type Number For Provider Date Date Visit [facility] MEDICATION [id number] 05/12 05/12 [facility] UPDATE [id number] /2012 e [facility] d [facility] [id number] Group [id number] [facility] MEDICATION [id number] 05/12 05/12 [facility] UPDATE [id number] /2012 e [facility] d [facility] [id number] Group 166 [facility] MEDICATION [id number] 05/12 05/12 [facility] UPDATE [id number] /2012 e [facility] d [facility] [id number] Group eb6 [facility] MEDICATION [id number] 05/12 05/12 [facility] UPDATE [id number] /2012 e [facility] d [facility] [id number] Group 21a [facility] MEDICATION [id number] 05/12 05/12 [facility] UPDATE [id number] /2012 e [facility] [id number] Group 834 [facility] Critical [id number] 05/25 05/25 [facility] Lab Result [id number] /2012 e Med Group [id number] Group 387 [facility] [id number] 05/25 05/25 [facility] Result [id number] /2012 e [facility] [id number] Group 247 [facility] [id number] 05/25 05/25 [facility] Result [id number] /2012 e [facility] [id number] Group 78d [facility] [id number] 05/25 05/25 [facility] Result [id number] /2012 e Med Group [id number] Group f6e [facility] [id number] 05/25 05/25 [facility] Result [id number] /2012 e Med Group [id number] Group 2df [facility] [id number] 05/25 05/25 [facility] Result [id number] /2012 e Med Group [id number] Group 107 [facility] Critical [id number] 05/25 05/25 [facility] Result [id number] /2012 e Med Group [id number] Group c83 [facility] [id number] 05/25 05/25 [facility] Result [id number] /2012 e Med Group [id number] Group 11e [facility] [id number] 05/25 05/25 [facility] Result [id number] /2012 e Med Group [id number] Group a70 [facility] Blood [id number] 05/29 05/29 Pr [facility] pressure [id number] /2012 e Med Group [id number] Group 7f8 [facility] Blood [id number] 05/29 05/29 Pr [facility] pressure [id number] /2012 e [facility] [id number] Group 3d1 [facility] Blood [id number] 05/29 05/29 Pr [facility] pressure [id number] /2012 e [facility] [id number] Group ef3 [facility] Blood [id number] 05/29 05/29 Pr [facility] pressure [id number] /2012 e Med Group [id number] Group b44 [facility] Blood [id number] 05/29 05/29 Pr [facility] pressure [id number] /2012 e Med Group [id number] Group 90e [facility] Blood [id number] 05/29 05/29 Pr [facility] pressure [id number] /2012 e Med Group [id number] Group f02 [facility] Blood [id number] 05/29 05/29 Pr [facility] pressure [id number] /2012 e Med Group [id number] Group fbb [facility] Blood [id number] 05/29 05/29 Pr [facility] pressure [id number] /2012 e Med Group [id number] Group 0d5 [facility] LABS FAXED [id number] 06/08 06/08 [facility] [id number] e Me d Group [id number] Group f8e [facility] FAXED [id number] 06/08 06/08 [facility] [id number] e Me d Group [id number] Group b90 [facility]S FAXED [id number] 06/08 06/08 [facility] [id number] /2012 e Me d Group [id number] Group d86 [facility]S FAXED [id number] 06/08 06/08 [facility] [id number] e Me d Group [id number] Group e80 [facility] LABS FAXED [id number] 06/08 06/08 [facility] [id number] /2012 e Me d Group [id number] Group 81b [facility] FAXED [id number] 06/08 06/08 [facility] [id number] /2012 e Me d Group [id number] Group 6f3 [facility] FAXED [id number] 06/08 06/08 [facility] [id number] /2012 e Me d Group [id number] Group e09 [facility] RF: [id number] 06/09 06/09 [facility] Amlodipine df-[id number] /2012 e Med Group 10 mg [id number] Group ce5 [facility] RF: [id number] 06/09 06/09 [facility] Amlodipine [id number] e Med Group 10 mg [id number] Group 50d [facility] RF: [id number] 06/09 06/09 [facility] Amlodipine [id number]-[id number] /2012 e Med Group 10 mg [id number] Group 7fb [facility]: [id number] 06/09 06/09 [facility] Amlodipine [id number]-903 /2012 e Med Group 10 mg [id number] Group 1d1 [facility] RF: [id number] 06/09 06/09 [facility] Amlodipine [id number] /2012 e Med Group 10 mg [id number]-[id number] Group 46f [facility] RF: [id number] 06/09 06/09 [facility] Amlodipine 4d-[id number] /2012 e Med Group 10 mg f-[id number] Group ce0 [facility] RF: [id number] 06/09 06/09 [facility] Amlodipine [id number] /2012 e Med Group 10 mg d-[id number] Group da6 [facility] Amlodopine [id number] 09/07 09/07 [facility] Refill [id number] /2012 e Me d Group 90day 3-24im755s9 Group supply f1a [facility] Amlodopine [id number] 09/07 09/07 [facility] Refill [id number] /2012 e Me d Group 90day d-[id number] Group supply 63f [facility] Amlodopine [id number] 09/07 09/07 [facility] Refill [id number] e Me d Group 90day 7-cmz61yr49 Group supply fcc [facility] Amlodopine [id number] 09/07 09/07 [facility] Refill [id number] /2012 e Me d Group 90day [id number] Group supply f5d [facility] refill [id number] 10/05 10/05 [facility] pravastatin cf-4926-[id number] /2012 e Med Group d-[id number] Group 5f0 [facility] refill [id number] 10/05 10/05 [facility] pravastatin [id number] /2012 e Med Group e-[id number] Group 5e4 [facility] refill [id number] 10/05 10/05 [facility] pravastatin [id number] /2012 e Med Group [id number] Group ce2 [facility] REFILL [id number] 12/09 12/09 [facility] REQUEST [id number] e M ed Group 4-q9vnqx949 Group 819 [facility] REFILL [id number] 12/09 12/09 [facility] REQUEST 15-4aed- e M ed Group a-[id number] Group 7c4 [facility] awe metrics [id number] 12/15 12/15 [facility] bf-4508-934 e Me d Group [id number] Group 9cf [facility] [id number] [place] 11/09 11/10 [facility] [place] 3 /2014 [facility] [place] Outpatient [id number] KEMPTON 05/17 Active [facility] 0 [place] Outpatient [id number] NURSE 06/06 Active [facility] 1 UROLOG [place] VISIT Outpatient [id number] CHAR 08/02 Active [facility] 3 [place] [facility] [id number] NURSE 08/08 Active [facility] 4 [place] [facility] Outpatient [id number] CHAR 08/25 Active [facility] 5 [place] [facility] OBS Day [id number] Char 08/29 08/29 M [facility] [place] Surgery 5 [place] Outpatient [id number] MALLORY TEYKL 09/06 Act rajan [facility] Outpt Diag [id number] Mallory Teykl 09/19 09/20 [facility] [place] Outpatient [id number] CHAR 09/27 Active [facility] 8 [place] Outpatient [id number] CHAR 01/02 Active [facility] 9 [place] Outpatient [id number] CHAR 04/03 Active [facility] 0 [place] Outpatient [id number] CHAR 07/25 Active [facility] 1 [place] Outpatient [id number] CHAR 01/29 Active [facility] 2 [facility] Outpatient [id number] Rivera 07/15 07/15 Active [facility] /2016 Surgical [facility] Outpatient [id number] Rivera 07/15 07/15 [facility]2016 [facility] Outpatient [id number] Rivera 07/29 07/29 Active [facility] /2016 Surgical [facility] Outpatient [id number] Rivera 07/29 07/29 [facility] /[address] [facility] Outpatient [id number] 07/30 Acti ve [facility] [place] Outpatient [id number] 08/06 Acti ve [facility] Phone [id number] 02/03 02/05 Urology Message [facility] [place] [facility] Outpatient [id number] ROBINSON CALDWELL 02/11 [facility] [id number] Robinson [place] 02/11 02/12 [facility] [place] [facility] Outpatient [id number] ROBINSON CALDWELL 08/19 Acti ve [facility] [place] Outpatient [id number] ROBINSON CALDWELL 08/19 Acti ve [facility] [id number] Robinson Caldwell 08/19 08/19 Urology Pre-Reg [facility] Ambulatory [id number] Robinson Caldwell 08/19 08/19 Urology Pre-Reg [facility] Outpatient [id number] Liborio 10/01 10/02 [facility] [address] [facility] Outpatient [id number] ROBINSON CALDWELL 10/28 Acti ve [facility] [id number] Robinsontrena Caldwell 10/28 10/[address] [facility] Outpatient [id number] Cindy 10/30 10/31 [facility] [address] [facility] Inpatient [id number] Neema 11/17 11/25 [facility] [place] 6 [place] Outpatient [id number] Neema 12/08 12/09 [facility] 9 Vaughn [facility] Phone [id number] 06/30 07/02 Urology Message [facility] Outpatient [id number] Robinson Caldwell 07/28 Acti ve [facility] [id number] Robinsontrena Caldwell 07/28 07/29 Urology [facility] Outpatient [id number] Robinsontrena Caldwell 08/06 Acti ve [facility] [id number] Robinson Paulette 08/06 08/07 Urology [facility] [place] [facility] Emergency [id number] Rolf 09/03 09/03 [facility] [place] 2 [facility] [place] Outpatient [id number] Mallory Teykl 09/07 Act rajan [facility] [id number] Mallory Teykl 09/07 09/08 Urology [facility] Outpatient [id number] Mallory Teykl 09/09 Act rajan [facility] Outpatient [id number] Mallory Teykl 09/09 09/10 Urology [facility] Outpatient [id number] Robinson Paulette 10/01 Acti ve [facility] Outpatient [id number] Robinson Paulette 10/01 10/02 Urology [facility] Outpatient [id number] ROBINSON PAULETTE 11/03 Acti ve [facility] Ambulatory [id number] [place] 11/03 11/03 Urology Pre-Reg [facility] Outpatient [id number] [place] 12/03 Acti ve [facility] Outpatient [id number] [place] 12/03 12/04 Urology [facility] Outpatient [id number] [place] 08/08 Acti ve [facility] Ambulatory [id number] [place] 08/08 08/08 Urology Pre-Reg [facility] Outpatient [id number] Robinson Paulette 09/22 Acti ve [facility] [place] Procedures Procedure Code Date Perfomer Comments [place] [id number] 12/03/19 Medical post-voiding residual 20 George up urine and/or bladder capacity by ultrasound, non-imaging Cystourethroscopy 55842 10/01/20 [facility] (separate procedure) 19 Grou p Transurethral [id number] 08/29/20 Medical resection of prostate 15 George up,[facility], [facility] [place],[facility] [place] Operation on prostate [id number] 10/14/19 Medical 15 Group,[facility], [facility] [place],[facility] Colon [id number] 10/14/19 colon Medical operation<sup>1</sup> 10 resection for Group,[facility], [facility] [place],[facility] Appendectomy [id number] Medical Group,[facility], [facility] Cholecystectomy [id number] Medica l Group,[facility], [facility] Operation [id number] Medical Group,[facility], [facility] AV - Aortic valve [id number] [facility] judith operation Group, [place] Bilateral extraction [id number] Medical of cataracts Group,[facility] Colectomy [id number] [facility] Fistula left arm [facility] Prostate [facility] cataract surgery [facility] Assessment and Plan Assessment and Plan Date Source Extracted from:Title: Clinical Document 11/25/2018 [facility] Author: Liborio Danielson MD Date: 11/25/18 I have seen and examined the patient with the Resident/Jasmeet galvin. I agree with the findings and plans above except for the fol lowing: Pt ready for D/C. 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 Extracted from:Title: [facility] Staff Addendum Author: Hilario Brooks MD Date: 11/18/18 Severe aortic stenosis(I35.0) My assessment, based on my own physica l examination, review and interpretation of labs and diagnostic imaging, established that the patient has the following diagnoses. Diagnoses This Visit Acutebloodlossanemia(D62) Atelectasispulmonary(J98.11) Benignessentialhypertension(I10) BPH(benignprostatichyperplasia)(N40.0) Coagulopathy(D68.9) DM(diabetesmellitus)(E11.9) ESRDonhemodialysisTTHS(N18.6) Hypoxemia(R09.02) Obesity(ZSW37-76.9)(E66.9) S/PAVR(aorticvalvereplacement)Mini11/17/18(Z95.2) S/PTURP(statusposttransurethralresectionofprostate)(Z90.79) Severeaorticvalvestenosis(I35.0) Thrombocytopenia(D69.6) NEURO:Pain controlled on [...] Same PRIMARY SURGEON: Solomon Vaughn MD 1st GASOLINE TRACTOR OPERATOR: Mickey Chan MD ANESTHESIOLOGISTS: Quiana Ramey [...] was then introduced followed by a rib beef tagger. A 1cm working utility port was created [...] entire procedure. Extracted from:Title: Operative report 11/10/2014 LISA Ibrahim Author: Char Macedo MD Date: 11/08/14 PREOPERATIVE DIAGNOSES: Benign prostatic hypertrophy with obstruction. POSTOPERATIVE DIAGNOSES: Benign prostatic hypertrophy with obstruction. PROCEDURE: Bipolar transurethral resection of prostate. SURGEON: Char Macedo M.D. ANESTHESIA: General LMA COMPLICATIONS: None. ESTIMATED BLOOD LOSS: Less than 50 mL FINDINGS: High bladder neck and kissing lateral lo bes with excellent resection. Ureteral orifices seen and not involved. DRAINS: A 22-Cameroonian three-way Laboy catheter to continuous bladder i [...] and the resectoscope sheath was removed. A 22-Cameroonian three-way Laboy catheter was inserted and the balloon i nflated with 20 mL of sterile water. This was irrigated to clear manually and then continuous bladder irrigation was initiated. At this point, the patient was rob live out of dorsolithotomy position, rene aned, awakened [...] No5 entered on: 12/03/19 1beer every few mzcye6wh beer in a coupl e of weeks and hardly any beer in a couple of trliws6hsd pqaossylmbx3whefyhfhw training and fjnauij6Ce changes Social History TypeResponse 11/14/2018 [facility] Substance Abuse Use: None. Exercise Exercise frequency: 3-4 times/week. Exe rcise type: treadmill, strength training.1 Employment/School Status: Retired.2 Alcohol Past, Type Beer. Frequency: Daily.3, 4 Smoking Status Never smoker; Exposure to Tobacco Smoke None; Cigarette Smoking Last 365 Days No; Reg Smoking Cessation Counseling No5 entered on: 11/17/18 1strenthgh training and gvxtamm9gve enfo oylldvu1ccrv every few bspqe2wb beer in a couple of weeks and hardly any beer in a couple of qrasgm2Zd changes Social History TypeResponse 11/14/2018 [facility] Substance Abuse Use: None. Exercise Exercise frequency: 3-4 times/week. Exe rcise type: treadmill, strength training.1 Employment/School Status: Retired.2 Alcohol Past, Type Beer. Frequency: Daily.3, 4 Smoking Status Never smoker; Exposure to Tobacco Smoke None; Cigarette Smoking Last 365 Days No; Reg Smoking Cessation Counseling No5 entered on: 11/17/18 1strenthgh training and xmatzzc8asf enfo hyhialt0ktpr every few bekob8ss beer in a couple of weeks and hardly any beer in a couple of psizuk0Aq changes Social History TypeResponse 11/14/2018 [facility] Geremias d Alcohol Past, Type Beer. Frequency: Daily.1, 2 Employment/School Status: Retired.3 Exercise Exercise frequency: 3-4 times/week. Exe rcise type: treadmill, strength training.4 Substance Abuse Use: None. Smoking Status Never smoker; Exposure to Tobacco Smoke None; Cigarette Smoking Last 365 Days No; Reg Smoking Cessation Counseling No5 entered on: 09/02/19 1beer every few obmdm1jo beer in a coupl e of weeks and hardly any beer in a couple of lzfgfe5ijv blgqaknajwz6jkoezapei training and bpeeirn4Kb changes Social History TypeResponse 08/27/2015 [facility] [place] Substance Abuse Use: None. Exercise Exercise frequency: 3-4 times/week. Exe rcise type: treadmill, strength training.1 Employment/School Status: Retired.2 Alcohol Current, Type Beer. Frequency: Daily.3, 4 Smoking Status Never smoker; Exposure to Tobacco Smoke None; Cigarette Smoking Last 365 Days No; Reg Smoking Cessation Counseling No 1strenthgh training and epjdbya6jjs enfo gesnhbo2ttrz every few okpgh1gj beer in a couple of weeks and hardly any beer in a couple of months Social History ElementQualifiersDate Reported 05/12/2013 [facility] Pets: . 3 dogs, 2 cats [...] None May 12, 2013 Social History TypeResponse [facility] Family History No Data Provided for This Section Advance Directives No Data Provided for This Section Functional Status No Data Provided for This Section
--- OUTSIDE RECORDS SUMMARY | 2020-09-21 21:58 | XMS REPORT | Continuity of Care Document ---
:1945 Author Organization [facility] t Address [address] [place] [address] Care Team Providers Name Role Phone Smith [...] moria RETENTION - 12:35:00 l URINARY 00:00: [place] RETENTION 00 Active 2019 LISA Ibrahim S/P AVR/ Diagnosis Active 2018-12-08 M emoria SOB 2-21 15:19:00 l S/P AVR/ 00:00: Gatito n SOB 00 Active 12/04/2018 [facility] R14.0 Diagnosis Active 2018-10-30 Mem oria 1-11 14:43:00 l R14.0 00:00: [place] 00 Active 10/24/2018 [facility] NONRHEUMAT Diagnosis Active 2017-102018-11-20 Memoria IC AORTIC 2-20 05:24:00 l (VALVE) 00:00: [place] STENOSIS NONRHEUMAT 00 IC AORTIC (VALVE) STENOSIS Active 10/02/2018 [facility] ESRD (end ESRD (end Disease Active [place] st[place] stage stage 2-15 Methodi renal renal 00:00: st disease) disease) 00 on on dialysis dialysis Hypertensi Hypertensi Disease Active 2015-10 [place] on Methodi associated associated 00:00: st with with 00 chronic chronic kidney kidney disease disease due to due to type 2 type 2 diabetes diabetes mellitus mellitus BLADDER Diagnosis Active 2014-102015-08-29 Md moria NECK 1-13 10:45:00 l CONTRACTUR BLADDER 00:00: Her garza E-N32.0 NECK 00 CONTRACTUR E-N32.0 Active 08/26/2015 [place] Malignant Problem Active 2020-08-10 Md moria tumor of 2-12 21:24:44 l prostate 00:00: [place] (disorder) Malignant 00 tumor of prostate (disorder) Active 11/25/2014 Problem 08/10/2020 [facility], [facility] [place],[facility], [place] BENIGN Diagnosis Active 2015-04-20 Mem oria PROSTATIC 1-12 10:46:00 l HYPERTROPH BENIGN 00:00: Herm chip Y WITH PROSTATIC 00 OBSTRU HYPERTROPH Y WITH OBSTRU Active 10/25/2014 [place] Benign Problem Active 2013-102020-08-10 Memor ia prostatic 21:24:44 l hypertroph Benign 00:00: Herm chip with prostatic 00 outflow hypertroph obstructio with n outflow (disorder) obstructio n (disorder) Active 08/10/2014 Problem 08/10/2020 Data migrated from [facility] on 03/12/15. Medical Group,[facility], [facility] [place],[facility] [place] Finding of Problem Active 2013-102020-08-10 M emoria frequency 0-28 21:24:44 l of Finding 00:00: [place] urination of 00 (finding) frequency of urination (finding) Active 08/10/2014 Problem 08/10/2020 Data migrated from [employer] on 03/12/15. Medical Group,[facility], [facility] [place],[facility] [place] Glycosuria Problem Active 2013-102020-08-10 M emoria (finding) 0- 21:24:44 l 00:00: [place] Glycosuria 00 (finding) Active 08/10/2014 Problem 08/10/2020 Data migrated from [employer] on 03/12/15. Medical [facility], [facility] [place],[facility] [place] Microscopi Problem Active 2013-102020-08-10 M emoria c 0-28 21:24:44 l hematuria 00:00: [place] (disorder) Microscopi 00 c hematuria (disorder) Active 08/10/2014 Problem 08/10/2020 Data migrated from [employer] on 03/12/15. 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 Medical Group,[facility], [facility] [place],[facility] [place] Mixed Problem Active 2020-08-10 Memor ia hyperlipid 02-17 21:24:44 l emia Mixed 00:00: [place] (disorder) hyperlipid 00 emia (disorder) Active 02/17/2013 Problem 08/10/2020 Data migrated from [employer] on 03/12/15. 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:08:42 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 04/21/2019 [facility] Atheroscle Problem 2019-04-21 M emoria rosis of 11:08:42 l aorta [place] Atheroscle rosis of aorta 04/21/2019 [facility] Other Problem 2019-04-21 Memor ia nonspecifi 11:08:42 l c abnormal Other Rebeca nn finding of nonspecifi lung field c abnormal finding of lung field 04/21/2019 [facility] Umbilical Problem 2019-04-21 Md moria hernia 11:08:42 l without [place] obstructio Umbilical n or hernia gangrene without obstructio n or gangrene 04/21/2019 [facility] Bilateral Problem 2019-04-21 Md moria inguinal 11:08:42 l hernia, [place]bar without Bilateral obstructio inguinal n or hernia, gangrene, without not obstructio specified n or as gangrene, recurrent not specified as recurrent 04/21/2019 [facility] 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) 04/21/2019 [facility] Nicotine Problem 2019-04-21 Mem oria dependence 11:08:42 l , Nicotine Gatito n cigarettes dependence , , uncomplica cigarettes duane , uncomplica duane 04/21/2019 [facility] Acquired Problem 2019-04-21 Mem oria absence of 11:08:42 l other Acquired Gatito n specified absence of parts of other digestive specified tract parts of digestive tract 04/21/2019 [facility] Intestinal Problem 2019-04-21 M emoria bypass and 11:08:42 l anastomosi Gatito n s status Intestinal bypass and anastomosi s status 04/21/2019 [facility] Pupillary Problem 2017-07-17 Me moria abnormalit 04:01:45 l y, left [place] eye Pupillary abnormalit y, left eye 07/17/2017 [facility] Backache Problem Resolve 2020-08-10 Me moria (finding) d 21:24:44 l Backache Gatito n (finding) Resolved Problem 08/10/2020 Medical Group,[facility], [facility] [place],[facility], [place] Swelling Problem Resolve 2020-08-10 Me moria of lower d 21:24:44 l limb Swelling Gatito n (finding) of lower limb (finding) Resolved Problem 08/10/2020 Medical Group,[facility], [facility] [place],[facility], [place] Diabetes Problem Resolve 2020-08-10 Me moria mellitus d 21:24:44 l (disorder) Diabetes He rmann mellitus (disorder) Resolved Problem 08/10/2020 Medical Group,[facility] [place] ,[facility], [place] End stage Problem Resolve 2020-08-10 M emoria renal d 21:24:44 l disease End [place] (disorder) stage renal disease (disorder) Resolved Problem 08/10/2020 Medical Group,[facility] [place] ,[facility], [place] Hypertensi Problem Active 2013-12-16 M emoria on 04:52:18 l [place] Hypertensi on Active Problem 4 [facility] Hyperlipem Problem Active 2013-12-16 M emoria ia 04:52:18 l [place] Hyperlipem ia Active Problem 4 [facility] Chronic Problem Active 2013-12-16 Jb zachary kidney 04:52:18 l disease, Chronic Rebeca nn stage III kidney disease, stage III Active Problem 12/16/2013 [facility] Acute Diagnosis Active 2013-07-14 Mem oria ethmoidal 04:23:16 l sinusitis Acute Gatito n ethmoidal sinusitis Active Diagnosis 07/14/2013 [facility] Benign Problem Active 2020-08-10 Memor ia prostatic 21:24:44 l hyperplasi Benign Herm chip a prostatic (disorder) hyperplasi a (disorder) Active Problem 08/10/2020 Medical Group,[facility], [facility] [place],[facility] [place] Chronic Problem Active 2020-08-10 Jb zachary back pain 21:24:44 l (disorder) Chronic Her garza back pain (disorder) Active Problem 08/10/2020 Medical Group,[facility], [facility] [place],[facility] [place] Chronic Problem Active 2020-08-10 Jb zachary renal 21:24:44 l impairment Chronic Her garza (disorder) renal impairment (disorder) Active Problem 08/10/2020 Medical Group,[facility], [facility] [place],[facility] [place] Chronic Problem Active 2020-08-10 Jb zachary kidney 21:24:44 l disease Chronic Gatito n stage 3 kidney (disorder) disease stage 3 (disorder) Active Problem 08/10/2020 Data migrated from [employer] on 03/12/15. Medical Group,[facility], [facility] [place],[facility] [place] Diabetes Problem Active 2020-08-10 Mem oria mellitus 21:24:44 l type 2 Diabetes Gatito n (disorder) mellitus type 2 (disorder) Active Problem 08/10/2020 Medical Group,[facility], [facility] [place],[facility] [place] Essential Problem Active 2020-08-10 Me moria hypertensi 21:24:44 l on [place] (disorder) Essential hypertensi on (disorder) Active Problem 08/10/2020 Data migrated from [employer] on 03/12/15. Medical Group,[facility], [facility] [place],[facility] [place] Hypertensi Problem Active 2020-08-10 M emoria ve 21:24:44 l disorder, [place] systemic Hypertensi arterial ve (disorder) disorder, systemic arterial (disorder) Active Problem 08/10/2020 Medical Group,[facility] ,[facility], [facility] [place],[facility] [place] Hypogonadi Problem Active 2020-08-10 M emoria sm 21:24:44 l (disorder) Gatito n Hypogonadi sm (disorder) Active Problem 08/10/2020 Data migrated from [employer] on 03/12/15. Medical Group,[facility], [facility] [place],[facility] [place] Hypokalemi Problem Active 2020-08-10 M emoria a 21:24:44 l (disorder) Gatito n Hypokalemi a (disorder) Active Problem 08/10/2020 Medical Group,[facility], [facility] [place],[facility] [place] Obesity Problem Active 2020-08-10 Jb zachary (disorder) 21:24:44 l Obesity [place] (disorder) Active Problem 08/10/2020 Data migrated from [employer] on 03/12/15. Medical Group,[facility], [facility] [place],[facility], [place] Pain Problem Active 2020-08-10 Memor ia (finding) 21:24:44 l Pain [place] (finding) Active Problem 08/10/2020 Medical Group,[facility], [facility] [place],[facility] [place] Renal Problem Active 2020-08-10 Memor ia failure 21:24:44 l syndrome Renal [place] (disorder) failure syndrome (disorder) Active Problem 08/10/2020 Medical Group,[facility], [facility] [place],[facility] [place] Seasonal Problem Active 2020-08-10 Mem oria allergic 21:24:44 l rhinitis Seasonal Herm chip (disorder) allergic rhinitis (disorder) Active Problem 08/10/2020 Medical Group,[facility], [facility] [place],[facility] [place] Neoplasm Problem Active 2020-08-10 Mem oria of colon 21:24:44 l (disorder) Neoplasm He rmann of colon (disorder) Active Problem 08/10/2020 Medical Group,[facility], [facility] [place],[facility] [place] Alteration Problem Active 2020-08-10 M emoria in 21:24:44 l patterns [place] of urinary Alteration eliminatio in n patterns (finding) of urinary eliminatio n (finding) Active Problem 08/10/2020 increased frequency Medical Group,[facility], [facility] [place],[facility], [place] Cholestero Problem Active 2015-09-22 M emoria l 01:38:21 l (substance Gatito n ) Cholestero l (substance ) Active Problem 09/22/2015 [facility] [place], [place] Retention Problem Active 2020-08-10 Me moria of urine 21:24:44 l (disorder) Gatito n Retention of urine (disorder) Active Problem 08/10/2020 [facility], [place] Urinary Problem Active 2020-08-10 Jb zachary tract 21:24:44 l infectious Urinary Her garza disease tract (disorder) infectious disease (disorder) Active Problem 08/10/2020 [facility], [place] Hyperchole Problem Active 2017-07-31 M emoria sterolemia 04:01:11 l (disorder) Gatito etienne Hyperchole sterolemia (disorder) Active Problem 07/31/2017 [facility] Hyperlipid Problem Active 2017-07-31 M emoria emia 04:01:11 l (disorder) Gatito n Hyperlipid emia (disorder) Active Problem 07/31/2017 [facility] BPH W Diagnosis Active 2015-04-20 Mem oria URINARY 10:46:00 l OBS/LUTS BPH W [place] URINARY OBS/LUTS Active [place] Urinary Problem 2018-102019-09-04 2019-09-04 Memoria tract - 23:46:10 23:46:10 l infection, Urinary 18:00: Her garza site not tract 00 specified infection, site not specified 2019 09/04/2019 [place] Retention Problem 2018-102019-09-04 2019-09-04 Memoria of urine, - 23:46:10 23:46:10 l unspecifie 18:00: Gatito etienne d Retention 00 of urine, unspecifie d 2019 09/04/2019 [place] Abdominal Problem 2019-0 2019-05-20 2019-05-20 Memoria distension - 11:17:50 11:17:50 l (gaseous) 05:03: [place] Abdominal 56 distension (gaseous) 11/05/2018 05/20/2019 [facility] Nonrheumat Problem 2017-2019-04-21 2019-04-21 Memoria ic aortic 2-25 11:08:42 11:08:42 l (valve) 04:16: [place] stenosis Nonrheumat 47 ic aortic (valve) stenosis 8 04/21/2019 [facility] Age-relate Problem 2016-2017-07-31 2017-07-31 Memoria d nuclear 0-16 04:01:11 04:01:11 l cataract, 05:00: [place] right eye Age-relate 00 d nuclear cataract, [...] DA Active U 2017-10 [facility] Allergie 10-21 [place] s 00:00: Region[facility] 00 [facility] Center No Known No Known Active Memori a Medicati Medicati l on on [place] Allergrigoberto Allergie s s Social History Social Habit Start Date Stop Date Quantity Comments Source History [facility] - Alcohol Std Drinks [facility]ica [facility] B[facility] Medical [place] [facility] Sex Assigned At [facility] - [facility] Tobacco use and 2018-12-24 2018-12-24 Never used [facility] kes - exposure 00:00:00 00:00:00 [facility] Center Alcohol intake 2018-12-24 2018-12-24 [facility]00:00 non-drinker of Medical Ce nter alcohol (finding) History SDOH 2018-12-24 2018-12-[address] [facility] - Alcohol Frequency 00:00:00 00:00:00 [facility] Center Social History 2015-08-27 2015-08-27 [facility] ermann 00:41:57 00:41:57 Pets: 2013-05-12 2013-05-12 [...] tab, PO, l tablet 19:18: Daily, # [place] 00 30 tab, 0 Refill(s) Cephalexin 2018-10 Yes 250 mg = 1 M emoria 250 MG Oral 1-27 cap, PO, l Capsule 16:46: BID, start Herm chip [Keflex] 00 the day before scope procedure, X 3 day, # 6 cap, 0 Refill(s), Pharmacy: [id number] Ciprofloxac 2018-10 Yes 500 mg = 1 [...] 2 MG tablet 00:00: Medica l 00 [place] acetaminoph Yes [facility]-codeine 2[facility] - (TYLENOL 00:00: Medical #3) 300-30 00 Center mg per tablet gabapentin Yes [facility] (NEURONTIN) 2[facility] - 100 MG 00:00: Medical capsule 00 [place] rosuvastati Yes [facility] n (CRESTOR) 2-13 [facility] - 20 MG 00:00: Medical tablet 00 [place] tamsulosin Yes [facility] (FLOMAX) 2-13 [facility] - 0.4 mg Cap 00:00: Medical 24 hr 00 Center capsule Warfarin 2018- No Notes: Memoria 2-12 Nurse to l 20:20: ensure [place] 00 documentat ion of patient education per [...] PO, l oral tablet 16:05: Bedtime, # [place] 00 30 tab, 0 Refill(s) Aspirin 81 Yes 81 mg = 1 Me moria MG Chewable 2-12 tab, PO, l Tablet 16:05: Daily, # [place] 00 30 tab, 0 Refill(s) metoprolol Yes [...] Weight 116.534, kg, Start date: 11/25/18 9:00:00 POSTAGE 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, Duration: 30 day, Stop date: 12/24/18 9:00:00 [...] Weight 116.534, kg, Start date: 11/21/18 17:00:00 POSTAGE 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, Duration: 30 day, Stop date: 12/21/18 9:00:00 CDT Acetaminoph No Notes: Do M emoria en 300 MG / 11-21 not exceed l Codeine 12:38: 4gm/day of Herm chip Phosphate 00 acetaminop 30 MG Oral hen. Tablet (Same as: [Tylenol Tylenol with with Codeine #3] Codeine # 3) Warfarin No Notes: Memoria 11-20 Nurse to l 23:00: ensure [place] 00 documentat ion of patient education per anticoagul ation policy. Avoid large intake of vitamin-K containing foods diet. (Same As: Coumadin) WASTE: F/P - P Waste Black; E - P Waste Black Bisacodyl No Notes: Memori a 11-20 (Same As: l 20:36: Dulcolax, [place] 00 Bisco-Lax) metoprolol No Notes: Memor ia tartrate 11-20 (Same as: l 15:56: Lopressor) [place] 00 AMIODarone No 2 mg/ml. Me moria [...] moria 11-20 "Recommend l 15:33: ation: Use [place]bar 00 an in-line filter during administra tion for continuous infusions to reduce the incidence of phlebitis" (Same as Codarone) MEDICATION WASTE Product Size: 150 mg Product Wasted: ___ mg Metoprolol No Notes: Memor ia - (Same as: l 14:39: Lopressor) [place] 00 Push over 2 minutes Lidocaine 2019-0 No Notes: Memori a Hydrochlori 2-06 (Same as: l de 10 MG/ML 18:04: Xylocaine) [place] Injectable Solution alfuzosin 2018-0 No 10 mg, Memori a extended 2-06 Route: PO, l release 16:31: Daily, Dosing Weight 116.534, kg, Priority: NOW, Start date: 11/19/18 10:31:00 POSTAGE 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, Duration: 30 day, Stop date: 12/19/18 9:00:00 POSTAGE 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 Fentanyl 2018-0 No Notes: Memoria 2-06 (Same as: l 16:21: Sublimaze) Preservat rajan free. Finasteride 2018-0 No 5 mg, Memor ia 2-06 Route: PO, l 15:00: Drug form: Dillon 00 TAB, Daily, Dosing Weight 116.534, kg, Start date: 11/19/18 9:00:00 POSTAGE 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, Duration: 30 day, Stop date: 12/18/18 9:00:00 POSTAGE 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 Glucagon 0 No 1 mg, Memoria 11-19 Route: IM, l 13:58: Drug form: PDR/INJ, PRN, Dosing Weight 116.534, kg, PRN Blood Glucose Results, Start date: 11/19/18 7:58:00 POSTAGE 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, Duration: 30 day, Stop date: 12/19/18 7:57:00 POSTAGE 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 Dextrose 2018-0 No 25 gm, 50 Jb zachary 50% Syringe 2-06 mL, Route: l 13:58: IVP, Drug Form: INJ, Dosing Weight 116.534, kg, PRN, PRN Blood Glucose Results, Start date: 11/19/18 7:58:00 POSTAGE 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, Duration: 30 day, Stop date: 12/19/18 7:57:00 POSTAGE 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 Insulin 2018-0 No Notes: Memoria Lispro -06 [...] Weight 116.534, kg, Start date: 11/18/18 21:00:00 POSTAGE 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, Duration: 30 day, Stop date: 12/18/18 17:00:00 POSTAGE 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 sennosides, No Notes: Jb zachary INTERMEDIATE 8.6 MG 2-06 (Same as: l Oral Tablet 03:00: Senokot) He rmann atorvastati No Notes: Jb zachary n 2-06 (Same as: l 03:00: Lipitor) [place] heparin No Notes: Memoria sodium, 2-05 porcine l porcine 22:00: heparin [place] 2500 UNT/ML 00 Injectable Solution Cefazolin No Notes: Memori a 2-05 (Same as l 20:00: Ancef) [place] 00 Simethicone No Notes: Jb zachary 2-05 (Same as: l 19:00: Mylicon) [place] 00 Acetaminoph No Notes: Max Memoria en 2-05 acetaminop l 18:00: hen 4000 [place] 00 mg/day (4 gm/day). (Same as: Tylenol Extra Strength) Flomax No Notes: Memoria 2-05 (Same As: l 18:00: Flomax) [place] 00 "Do Not Crush" Finasteride No Notes: Jb zachary 2-05 (Same as: l 17:44: Proscar) [place] 00 "Do Not Crush" Women of childbeari [...] Memoria 2-05 (Same as: l 15:00: Colace) [place] 00 (Do Not Crush) Miralax No Notes: Memoria 2-05 Dissolve l 15:00: in 8 oz of [place]bar 00 water or juice. (Same as: Miralax) Mupirocin No 1 appl, Memor ia 0.02 MG/MG 2-05 Route: l Topical 15:00: NASAL, [place] Ointment 00 BID, Drug form: OINT, Start date: 11/18/18 9:00:00 POSTAGE 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, Duration: 5 day, Stop date: 11/22/18 17:00:00 POSTAGE 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 Aspirin 81 No Notes: Do Me moria MG Chewable 2-05 not crush l Tablet 15:00: or chew. [place] 00 (Same As: Ecotrin) tramadol No Notes: Not Mem oria hydrochlori 2-05 to exceed l de 50 MG 14:00: 400mg/day. Her garza Oral Tablet 00 (Same As: Ultram) Oxycodone No Notes: Memori a Hydrochlori 2-05 (Same as: l de 5 MG 09:32: Roxicodone Herm chip Oral Tablet 00 ) [facility] No Notes: Memoria 2-05 Infuse l 07:00: over 15 Dillon 00 minutes Do not exceed 4gm/day of acetaminop hen MEDICATION WASTE Product Size: 1000 mg Product Wasted: ___ mg ocular No Notes: Memoria lubricant 2-05 (Same as: l 06:00: Lacri-Lube [place] 00 , Puralube, Duratears Naturale, Artificial Tears, and Tears Again ) [facility] No or = 50 Memori a 2-05 kg, Start l 06:00: date: [place] 11/18/18 0:00:00 POSTAGE 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, Duration: 1 day, Stop date: 11/18/18 18:00:00 POSTAGE 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 albumin No Notes: Memoria human 5% 2-05 LOT#: l intravenous 05:26: [place] solution 00 ___ Mfg: WASTE: F/P - Red; E -Red (Same as: Albuminar) "blood product derivative " Sodium 2019- No 500 mL, Memoria Chloride 2-05 500 ml/hr, l 0.9% 05:23: Infuse [place] (Bolus) IV 00 Over: 1 hr, Route: IV, ONCE, Priority: STAT, Dosing Weight 116.534 kg, Start date: 11/17/18 23:23:00 POSTAGE 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, Stop date: 11/17/18 23:23:00 POSTAGE 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 chlorhexidi No Notes: Jb zachary ne 2-05 (Same As: l gluconate 03:00: Peridex) Herm chip 1.2 MG/ML 00 Mouthwash Insulin No Notes: Memoria regular 100 2-05 Final l unit + 01:36: Concentrat Rebeca nn 00 ion 1unit/1ml WASTE: F/P - Black; E - Municipal Trash Bin Dextrose No 12.5 gm, Memor ia 50% Syringe 2-05 25 mL, l 01:36: Route: [place] 00 IVP, Drug Form: INJ, Dosing Weight 116.534, kg, PRN, PRN Blood Glucose Results, Start date: 11/17/18 19:36:00 POSTAGE 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, Duration: 30 day, Stop date: 12/17/18 19:35:00 POSTAGE 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 Ofirmev No Notes: Memoria 2-05 Infuse l 01:05: over 15 [place] 00 minutes Do not exceed 4gm/day of [...] Memoria 2-05 (Same as: l 00:43: Sublimaze) [place] 00 Preservat rajan free. Albuterol 0 No Notes: Memori a 0.833 MG/ML 2-05 (Same as: l / 00:43: Duoneb) [place] Ipratropium 00 Cornish 0.167 MG/ML Inhalant Solution [DuoNeb] Magnesium 2019-0 No 800 mg, Memor ia Oxide 2-05 Route: PO, l 00:26: PRN, [place] 00 Dosing Weight 116.534, kg, PRN Abnormal Lab Result, FOR ICU USE ONLY, Start date: 11/17/18 18:26:00 POSTAGE 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, Duration: 30 day, Stop date: 12/17/18 18:25:00 POSTAGE 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 Calcium 2019-0 No 1 gm, Memoria Gluconate 2-05 Route: l 00:26: IVPB, PRN, [place] 00 Dosing Weight 116.534, kg, PRN Abnormal Lab Result, Start date: 11/17/18 18:26:00 POSTAGE 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, Duration: 30 day, Stop date: 12/17/18 18:25:00 POSTAGE 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, FOR ICU USE ONLY Calcium 2018-0 No 500 mg, Memoria Carbonate 2-05 Route: PO, l 500 MG 00:26: PRN, [place] Chewable 00 Dosing Tablet Weight 116.534, kg, PRN Abnormal Lab Result, FOR ICU USE ONLY, Start date: 11/17/18 18:26:00 POSTAGE 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, Duration: 30 day, Stop date: 12/17/18 18:25:00 POSTAGE 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 potassium 2019-0 No 2 pkt, Memori a phosphate-s 2-05 Route: PO, l odium 00:26: Dosing [place] phosphate 00 Weight 250 mg-280 116.534, mg-160 mg kg, PRN, oral powder PRN for Abnormal reconstitut Lab ion Result, FOR ICU USE ONLY, Start date: 11/17/18 18:26:00 POSTAGE 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, Duration: 30 day, Stop date: 12/17/18 18:25:00 POSTAGE 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 Magnesium 2019-0 No 2 gm, Memoria Sulfate 2-05 Route: l 00:26: IVPB, PRN, [place] 00 Dosing Weight 116.534, kg, PRN Abnormal Lab Result, Start date: 11/17/18 18:26:00 POSTAGE 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, Duration: 30 day, Stop date: 12/17/18 18:25:00 POSTAGE 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, FOR ICU USE ONLY potassium 2019-0 No 15 mmol, Jb zachary phosphate 2-05 Route: l 00:26: IVPB, PRN, Dosing Weight 116.534, kg, PRN Abnormal Lab Result, Start date: 11/17/18 18:26:00 POSTAGE 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, Duration: 30 day, Stop date: 12/17/18 18:25:00 POSTAGE 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, FOR ICU USE ONLY sodium 2019- No 15 mmol, Memoria phosphate 2-05 Route: l 00:26: IVPB, PRN, Dosing Weight 116.534, kg, PRN Abnormal Lab Result, Start date: 11/17/18 18:26:00 POSTAGE 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, Duration: 30 day, Stop date: 12/17/18 18:25:00 POSTAGE 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, FOR ICU USE ONLY Potassium 2019- No 20 mEq, Memor ia Chloride 2-05 Route: PO, l 00:26: Drug form: ERTAB, PRN, Dosing Weight 116.534, kg, PRN Abnormal Lab Result, Start date: 11/17/18 18:26:00 POSTAGE 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, Duration: 30 day, Stop date: 12/17/18 18:25:00 POSTAGE 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, FOR ICU USE ONLY Stimate 2019- No Route: IV, Jb zachary (ANES) 4 2-04 Drug Form: l microgram 23:23: INJ, Start date: 11/17/18 17:23:00 POSTAGE 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, Stop date: 11/17/18 18:23:00 POSTAGE 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 protamine 2019-0 No Route: IV, Me moria (ANES) 10 2-04 Drug form: l mg 23:06: INJ, Start date: 11/17/18 17:06:00 POSTAGE 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, Stop date: 11/17/18 18:06:00 POSTAGE 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 calcium 2019-0 No Route: IV, Jb zachary chloride 2-04 Drug form: l (ANES) 23:03: INJ, ONCE, Rbeeca Stop date: 11/17/18 17:03:00 POSTAGE 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 heparin 2019-0 No Route: IV, Jb zachary (ANES) 2- Drug form: l 21:08: INJ, ONCE, Stop date: 11/17/18 15:08:00 POSTAGE 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 lidocaine 2019-0 No Route: IV, Me moria (ANES) 2- Drug form: l 21:03: INJ, ONCE, Stop date: 11/17/18 15:03:00 POSTAGE 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 propofol 2019-0 No Route: IV, Mem oria (ANES) 2- Drug form: l 20:44: INJ, ONCE, Stop date: 11/17/18 14:44:00 POSTAGE 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 fentaNYL 2019-0 No Route: IV, Mem oria (ANES) 2- Drug form: l 20:44: INJ, ONCE, Stop date: 11/17/18 14:44:00 POSTAGE 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 rocuronium 2019-0 No Route: IV, M emoria (ANES) 2- Drug form: l 20:44: INJ, ONCE, Stop date: 11/17/18 14:44:00 POSTAGE 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 midazolam 2019-0 No Route: IV, Me moria (ANES) 2- Drug form: l 20:44: SOLN, ONCE, Stop date: 11/17/18 14:44:00 POSTAGE 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 ceFAZolin 2019-0 No Route: IV, Me moria (ANES) 2- Drug form: l 20:38: INJ, ONCE, Stop date: 11/17/18 14:38:00 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 norepinephr 2019-0 No Route: IV, Memoria ine (ANES) 2- Drug form: l 10 20:35: INJ, Start Dillon microgram 00 date: 11/17/18 14:35:00 POSTAGE 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, Stop date: 11/17/18 15:35:00 POSTAGE 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 vancomycin 2019-0 No Route: IV, M emoria (ANES) 1000 2- Drug form: l mg 20:05: INJ, Start [place] 00 date: 11/17/18 14:05:00 POSTAGE 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, Stop date: 11/17/18 15:05:00 POSTAGE 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 tranexamic 2019-0 No Route: IV, M emoria acid (ANES) 2- Drug form: l 10 mg 20:00: INJ, Start Gatito n 00 date: 11/17/18 14:00:00 POSTAGE 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, Stop date: 11/17/18 15:00:00 POSTAGE 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 Exparel No Notes: [facility] 2-04 (Same as: l 20:00: Exparel) Dlilon 00 NOT FOR IV use Postoperat rajan [...] 500, Start 500 mL date: 11/17/18 13:40:00 POSTAGE 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, Stop date: 11/17/18 14:40:00 POSTAGE 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 Isolyte S No Route: IV, Me moria PH 7.4 2-04 Total l (ANES) 1000 19:16: Volume: Her garza mL 00 1,000, Start date: 11/17/18 13:16:00 POSTAGE 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, Stop date: 11/17/18 14:16:00 POSTAGE 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 Amylases No 1 cap, PO, Mem oria 50987 UNT / 2-01 TID, 0 l Endopeptida 17:00: Refill(s) H ermann ses 64371 00 UNT / Lipase 13571 UNT Delayed Release Oral Capsule [Zenpep] rifaximin [...] Refill(s), [facility] No 500 mg = 1 [...] Jb zachary 0-16 mL, l 17:55: Injection, [place] 00 IV, Once, first dose 07/29/17 12:55:00 CDT, stop date 07/29/17 12:55:00 CDT fentaNYL 2016-10 No 50 mcg = 1 Mem oria 0-16 mL, l 17:44: Injection, Dillon 00 IV, Once, first dose 07/29/17 12:44:00 CDT, stop date 07/29/17 12:44:00 CDT midazolam 2016-10 No 1 mg = 1 Jb zachary 0-16 mL, l 17:43: Injection, [place] 00 IV, Once, first dose 07/29/17 12:43:00 CDT, stop date 07/29/17 12:43:00 CDT ondansetron 2016-10 No 4 mg = 2 Me moria 0-16 mL, l 17:43: Injection, Dillon 00 IV, Once, first dose 07/29/17 12:43:00 CDT, stop date 07/29/17 12:43:00 CDT Ethyl 2016-10 No 1 sprays, Memoria Chloride 1 0-16 [place], l ML/ML 17:00: TOP, Once, [place] Topical 00 first dose [place] 07/29/17 12:00:00 CDT, stop date 07/29/17 12:00:00 [...] ne 0-16 Soln, l Hydrochlori 16:55: Eye-Operat [place] de 25 MG/ML 00 rajan, Ophthalmic q5min, [...] Jb zachary 0-02 mL, l 16:00: Injection, [place] 00 IV, Once, first dose 07/15/17 11:00:00 CDT, stop date 07/15/17 11:00:00 CDT fentaNYL 2016-10 No 50 mcg = 1 Mem oria 0-02 mL, l 16:00: Injection, [place] 00 IV, Once, first dose 07/15/17 11:00:00 CDT, stop date 07/15/17 11:00:00 CDT ondansetron 2016-10 No 4 mg = 2 Me moria 0-02 mL, l 16:00: Injection, [place] 00 IV, Once, first dose 07/15/17 11:00:00 CDT, stop date 07/15/17 11:00:00 CDT Ethyl 2016-10 No 1 sprays, Memoria Chloride 1 0-02 [place], l ML/ML 15:00: TOP, Once, [place] Topical 00 first dose [place] 07/15/17 10:00:00 CDT, stop date 07/15/17 10:00:00 [...] ne 0-02 Soln, l Hydrochlori 14:45: Eye-Operat [place] de 25 MG/ML 00 rajan, Ophthalmic q5min, [...] ia 0-02 IV, 100 l 14:44: mL/hr, [place] 00 start date 07/15/17 9:44:00 CDT, Adult Eye Procedures or Pain Lidocaine Yes joaquin, TOP, Mem oria Hydrochlori 9-30 TID, 0 l de 0.005 17:24: Refill(s) Herm chip MG/MG 00 Topical Gel gabapentin Yes 300 mg = 1 M emoria 300 MG Oral 9-30 caps, l Capsule 17:24: Oral, [place] [Neurontin] 00 Daily, 0 Refill(s) finasteride Yes 5 mg = 1 Me moria 5 mg oral 9-30 tabs, l tablet 17:24: Oral, [place] 00 Daily, 0 Refill(s) Metoprolol Yes 50 [...] oral 9-30 tabs, l tablet 17:22: Oral, [place] 00 Daily, 0 Refill(s) metoprolol 2015-10 Yes [...] zachary -16 (Same as: l 22:27: Zofran) [place] 00 MEDICATION WASTE Product Size: 4 mg [...] days Memor ia -16 l 22:27: MEDICATION [place] WASTE Product Size: 30 mg Product Wasted: [...] / 10-29 (Same as: l Hydrocodone 21:18: [place] Rebeca nn Bitartrate 00 325/5) Do 5 [...] Do Memoria 1-16 not l 12:00: refrigerat [place] 00 e 168 HR 2014-10 Yes 1 patch, Memoria Clonidine 1-14 TOP, 0 l 0.09091 00:36: Refill(s) Rebeca nn MG/HR 00 Transdermal Patch Crestor 2014-10 Yes PO, Memoria 1-14 Bedtime, 0 l 00:35: Refill(s) [place] 00 ALFUZOSIN No ALFUZOSIN Mem oria ER 10MG TAB 11-10 ER 10MG l 00:00: TAB, 1 [place] 00 tab, Drug form: MISC, Route: PO, [...] Memoria 1-27 (Same as: l 15:00: Prinivil, [place] Zestril) Avodart No Notes: Memoria 11-09 Non-Formul l 15:00: [facility]. [place] (Same As: Avodart) (Do Not Crush) benazepril No 40 mg, Memor ia 11-09 Route: PO, l 15:00: Drug form: [place] 00 TAB, Daily, Dosing Weight 124.318, kg, [...] cap, PO, l MG Oral 13:27: BID, [place] Capsule 00 Constipati [Colace] on, # 20 [...] (Same as: l MG Oral 23:00: Colace) [place] Capsule (Do Not Crush) Glipizide 5 No [...] 11-08 Rate: 125 l 0.0014 17:35: ml/hr, [place] MEQ/ML / 00 Infuse Potassium over: 8 [...] Injectable 14:00: IVPB, [place] Solution 00 [id number], [Cipro] Dosing Weight 127.136, kg, Start date: [...] tab, PO, l tablet 16:38: Daily, # [place] 00 30 tab, 0 Refill(s) amlodipine Yes MARIAA 1 tab(s) Memoria 2-27 CHRYSTAL l 04:54: [place] 21 spironolact 2012-10 Yes MARIAA 1 tab(s) Memoria one 0-01 CHRYSTAL l 04:23: [place] 16 benazepril 2012-10 Yes MARIAA 1 tab(s) Memoria 0-01 CHRYSTAL l 04:23: [place] 16 metoprolol 2012-10 Yes MARIAA 1 tab(s) [...] tab(s) Jb zachary 1-17 CHRYSTAL l 00:00: [place] 00 Vital Signs Vital Name Observation Time Observation Value Comments Source Systolic (mm Hg) 2019-12-03 19:04:00 Jb rial [place] Diastolic (mm Hg) 2019-12-03 19:04:00 Mem orial [place] Heart Rate 2019-12-03 19:04:00 [facility] [place] Temperature Oral (F) 2019-12-03 19:04:00 97.6 F [facility] [place] Height 2019-12-03 19:04:00 182.88 cm [facility] [place] Weight 2019-12-03 19:04:00 [facility] [place] BMI Calculated 2019-12-03 19:04:00 Memori al [place] Systolic (mm Hg) 2019-10-01 15:58:00 Jb rial [place] Diastolic (mm Hg) 2019-10-01 15:58:00 Mem orial [place] Heart Rate 2019-10-01 15:58:00 [facility] [place] Height 2019-10-01 15:58:00 182.88 cm [facility] [place] Weight 2019-10-01 15:58:00 [facility] [place] BMI Calculated 2019-10-01 15:58:00 Memori al [place] Systolic (mm Hg) 2019-09-09 16:21:00 Jb rial [place] Diastolic (mm Hg) 2019-09-09 16:21:00 Mem orial [place] Heart Rate 2019-09-09 16:21:00 [facility] Height 2019-09-09 16:21:00 185.42 cm [facility] [place] Weight 2019-09-09 16:21:00 [facility] [place] BMI Calculated 2019-09-09 16:21:00 Memori al [place] Systolic (mm Hg) 2019-09-07 19:07:00 Jb rial [place] Diastolic (mm Hg) 2019-09-07 19:07:00 Mem orial [place] Heart Rate 2019-09-07 19:07:00 [facility] [place] Temperature Oral (F) 2019-09-07 19:07:00 97.3 F [facility] [place] Height 2019-09-07 19:07:00 185.42 cm [facility] [place] Weight 2019-09-07 19:07:00 [facility] [place] BMI Calculated 2019-09-07 19:07:00 [facility]ori al [place] Temperature Oral (F) 2019-09-03 04:58:00 98.0 F [facility] [place] Heart Rate 2019-09-03 04:58:00 [facility] [place] Respitory Rate 2019-09-03 04:58:00 Memori al [place] Systolic (mm Hg) 2019-09-03 04:58:00 Jb rial [place] Diastolic (mm Hg) 2019-09-03 04:58:00 Mem orial [place] Systolic (mm Hg) 2019-09-03 01:32:00 Jb rial [place] Diastolic (mm Hg) 2019-09-03 01:32:00 Mem orial [place] Heart Rate 2019-09-03 01:32:00 [facility] [place] Respitory Rate 2019-09-03 01:32:00 Memori al [place] Temperature Oral (F) 2019-09-03 01:32:00 98.1 F [facility] [place] Weight 2019-09-03 01:32:00 [facility] [place] Systolic (mm Hg) 2019-08-06 15:18:00 Jb rial [place] Diastolic (mm Hg) 2019-08-06 15:18:00 Mem orial [place] Heart Rate 2019-08-06 15:18:00 [facility] [place] Temperature Oral (F) 2019-08-06 15:18:00 98.2 F [facility] [place] Systolic (mm Hg) 2019-07-28 15:44:00 Jb rial [place] Diastolic (mm Hg) 2019-07-28 15:44:00 Mem orial [place] Heart Rate 2019-07-28 15:44:00 [facility] [place] Height 2019-07-28 15:44:00 182.88 cm [facility] Weight 2019-07-28 15:44:00 [facility] [place] BMI Calculated 2019-07-28 15:44:00 Memori al [place] Temperature Oral (F) 2019-07-28 15:44:00 97.5 F [facility] BMI Calculated 2018-12-08 14:41:00 [facility] [place] Weight 2018-12-08 14:41:00 [facility] Height 2018-12-08 14:41:00 185.42 cm [facility] [place] Systolic (mm Hg) 2018-11-25 19:00:00 Jb rial [place] Diastolic (mm Hg) 2018-11-25 19:00:00 Mem orial [place] Respitory Rate 2018-11-25 19:00:00 Memori al [place] Systolic (mm Hg) 2018-11-25 18:30:00 Jb rial [place] Diastolic (mm Hg) 2018-11-25 18:30:00 Mem orial [place] Respitory Rate 2018-11-25 18:30:00 Memori al [place] Temperature Oral (F) 2018-11-25 18:30:00 97.6 F [facility] [place] Systolic (mm Hg) 2018-11-25 18:00:00 Jb rial [place] Diastolic (mm Hg) 2018-11-25 18:00:00 Mem orial [place] Respitory Rate 2018-11-25 18:00:00 Memori al [place] Temperature Oral (F) 2018-11-25 15:00:00 97.8 F [facility] Temperature Oral (F) 2018-11-25 06:00:00 97.7 F [facility] Height 2018-11-18 01:21:00 182.88 cm [facility] [place] Height 2018-11-18 00:44:00 182.88 cm [facility] [place] Weight 2018-11-17 17:18:00 [facility] [place] Height 2018-11-17 17:18:00 182.88 cm [facility] BMI Calculated 2018-11-17 17:18:00 [facility] al [place] Weight 2018-11-14 15:44:00 [facility] [place] BMI Calculated 2018-11-14 15:44:00 [facility] al [place] BMI Calculated 2018-10-30 21:00:00 [facility] [place] Weight 2018-10-30 21:00:00 [facility] [place] Height 2018-10-30 21:00:00 185.42 cm [facility] [place] Height 2018-10-28 19:21:00 185.42 cm [facility] BMI Calculated 2018-10-28 19:21:00 [facility] [place] Weight 2018-10-28 19:21:00 [facility] Systolic (mm Hg) 2018-10-01 17:58:00 Jb rial [place] Diastolic (mm Hg) 2018-10-01 17:58:00 Mem orial [place] BMI Calculated 2018-10-01 14:33:00 [facility] al [place] Weight 2018-10-01 14:33:00 [facility] [place] Height 2018-10-01 14:33:00 185.42 cm [facility] [place] Temperature Oral (F) 2018-02-11 18:26:00 98.3 F [facility] Heart Rate 2018-02-11 18:26:00 [facility] Systolic (mm Hg) 2018-02-11 18:26:00 Jb rial [place] Diastolic (mm Hg) 2018-02-11 18:26:00 Mem orial [place] Systolic (mm Hg) 2017-07-29 18:05:00 Jb rial [place] Diastolic (mm Hg) 2017-07-29 18:05:00 Mem orial [place] Respitory Rate 2017-07-29 18:05:00 Memori al [place] Heart Rate 2017-07-29 18:05:00 [facility] [place] Temperature Oral (F) 2017-07-29 18:05:00 36.7 Anya [facility] Height 2017-07-29 16:49:00 182.42 cm [facility] Respitory Rate 2017-07-29 16:49:00 Memori al [place] Temperature Oral (F) 2017-07-29 16:49:00 36.4 Anya [facility] [place] Systolic (mm Hg) 2017-07-29 16:49:00 Jb rial [place] Diastolic (mm Hg) 2017-07-29 16:49:00 Mem orial [place] Height 2017-07-27 22:25:00 182.42 cm [facility] Systolic (mm Hg) 2017-07-15 16:30:00 Jb rial [place] Diastolic (mm Hg) 2017-07-15 16:30:00 Mem orial [place] Heart Rate 2017-07-15 16:30:00 [facility] [place] Respitory Rate 2017-07-15 16:30:00 Memori al [place] Systolic (mm Hg) 2017-07-15 14:47:00 Jb rial [place] Diastolic (mm Hg) 2017-07-15 14:47:00 Mem orial [place] Respitory Rate 2017-07-15 14:47:00 Memori al [place] Temperature Oral (F) 2017-07-15 14:47:00 36.1 Anya [facility] [place] Height 2017-07-15 14:47:00 182.42 cm [facility] [place] Systolic (mm Hg) 2015-08-29 22:30:00 Bj rial [place] Diastolic (mm Hg) 2015-08-29 22:30:00 Mem orial [place] Respitory Rate 2015-08-29 22:30:00 Memori al [place] Respitory Rate 2015-08-29 22:15:00 [facility]ori al [place] Systolic (mm Hg) 2015-08-29 22:15:00 Jb rial [place] Diastolic (mm Hg) 2015-08-29 22:15:00 Mem orial [place] Systolic (mm Hg) 2015-08-29 22:00:00 Jb rial [place] Diastolic (mm Hg) 2015-08-29 22:00:00 Mem orial [place] Respitory Rate 2015-08-29 22:00:00 [facility]ori al [place] Heart Rate 2015-08-29 19:00:00 [facility] [place] Weight 2015-08-29 18:40:00 [facility] BMI Calculated 2015-08-29 18:40:00 [facility] [place] Height 2015-08-27 00:28:00 185.42 cm [facility] Temperature Oral (F) 2014-11-10 17:28:00 98.2 F [facility] Heart Rate 2014-11-10 17:28:00 [facility] [place] Respitory Rate 2014-11-10 17:28:00 Memori al [place] Diastolic (mm Hg) 2014-11-10 17:28:00 Mem orial [place] Systolic (mm Hg) 2014-11-10 17:28:00 Jb rial [place] Temperature Oral (F) 2014-11-10 13:41:00 98.0 F [facility] [place] Heart Rate 2014-11-10 13:41:00 [facility] Respitory Rate 2014-11-10 13:41:00 Memori al [place] Systolic (mm Hg) 2014-11-10 13:41:00 Jb rial [place] Diastolic (mm Hg) 2014-11-10 13:41:00 Mem orial [place] Heart Rate 2014-11-10 10:42:00 [facility] Respitory Rate 2014-11-10 10:42:00 Memori al [place] Diastolic (mm Hg) 2014-11-10 10:42:00 Mem orial [place] Systolic (mm Hg) 2014-11-10 10:42:00 Jb rial [place] Temperature Oral (F) 2014-11-10 10:42:00 98.1 F [facility] [place] Height 2014-11-08 22:55:00 185.42 cm [facility] [place] BMI Calculated 2014-11-08 22:55:00 Memori al [place] Weight 2014-11-08 22:55:00 [facility] [place] Weight 2014-11-08 13:50:00 [facility] [place] BMI Calculated 2014-11-08 13:50:00 Memori al [place] Height 2014-11-01 16:36:00 185.42 cm [facility] [place] Temperature Oral (F) 2013-05-12 17:30:00 96.8 F [facility] Weight 2013-05-12 17:30:00 [facility] [place] Respitory Rate 2013-05-12 17:30:00 Memori al [place] Heart Rate 2013-05-12 17:30:00 [facility] [place] Diastolic (mm Hg) 2013-05-12 17:30:00 Mem orial [place] Systolic (mm Hg) 2013-05-12 17:30:00 Jb rial [place] Temperature Oral (F) 2013-05-12 16:30:00 96.8 F [facility] Weight 2013-05-12 16:30:00 [facility] [place] Respitory Rate 2013-05-12 16:30:00 Memori al [place] Heart Rate 2013-05-12 16:30:00 [facility] [place] Diastolic (mm Hg) 2013-05-12 16:30:00 Mem orial [place] Systolic (mm Hg) 2013-05-12 16:30:00 Jb rial [place] Procedures Procedure Date / Time Performing Clinician Source Performed Measurement of post-voiding 2019-12-03 19:40:00 [facility] residual urine and/or bladder capacity by ultrasound, non-imaging Cystourethroscopy (separate 2019-10-01 16:30:00 [facility] procedure) [facility] 2015-08-29 06[facility]00[facility] Operation on prostate 2014-10-14 06:00:00 Memanuel al [place] Colon operation<sup>1</sup> 2009-10-14 06:00:00 [facility] Appendectomy [facility] Cholecystectomy [facility] Operation [facility] AV - Aortic valve operation Jb rial [place] Bilateral extraction of [facility] cataracts Colectomy [facility] [place] Fistula left arm [facility] Prostate [facility] cataract surgery [facility] [facility] Plan of Care Planned Activity Planned Date Details Comments Source Future Scheduled 2020-06-14 INFLUENZA VACCINE (#1) [facility] Test 00:00:00 [code = INFLUENZA Medical Ce nter VACCINE (#1)] Future Scheduled 2020-05-14 [facility]ZA VACCINE [facility] 00:00:00 [code = INFLUENZA VACCINE] Future Scheduled 2018-10-[address] [facility] - Test 00:00:00 WELLNESS (YEAR 2 or [facility] FIRST YEAR if no IPPE) [code = MEDICARE ANNUAL WELLNESS (YEAR 2 or FIRST YEAR if no IPPE)] Future Scheduled 2009 65+ PNEUMOCOCCAL [facility] Test 00:00:00 VACCINE (1 of 1 - PPSV23) [code = 65+ PNEUMOCOCCAL VACCINE (1 of 1 - PPSV23)] Future Scheduled 2009 PNEUMOCOCCAL 65+ YRS [facility] - Test 00:00:00 (1 of 1 - Medical Center [id number] PCV13) [code = PNEUMOCOCCAL 65+ YRS (1 of 1 - [id number] PCV13)] Future Scheduled 1994 COLONOSCOPY SCREENING [facility] Test 00:00:00 [code = COLONOSCOPY SCREENING] Future Scheduled 1994 SHINGLES VACCINES (#1) [facility] Test 00:00:00 [code = SHINGLES VACCINES (#1)] Future Scheduled [address] [facility] - Test 00:00:00 malignant neoplasm of Medica l [place] colon (procedure) [code = 749396767] Encounters Start End Encounter Admission Attending Care Care Encounter Source Date/Time Date/Time Type Type Clinicians Facility Department ID 2020-08-08 2020-08-08 Outpatient Miguel Caldwell [facility] [id number] 11:00:00 11:00:00 22 2019-12-03 2019-12-03 Outpatient Miguel Caldwell [facility] [id number] 13:45:00 23:59:59 27 2019-11-03 2019-11-03 Outpatient Miguel Caldwell [facility] [id number] 13:45:00 13:45:00 19 2019-10-01 2019-10-01 Outpatient Miguel Caldwell [facility] [id number] 10:30:00 23:59:59 24 2019-09-09 2019-09-09 Outpatient CEDRIC Platt [id number] 11:00:00 23:59:59 Mallory Keating 25 2019-09-07 2019-09-07 Outpatient CEDRIC Platt [id number] 13:15:00 23:59:59 Mallory Keating 23 2019 2019 Outpatient Ravin [facility]SL MHSL [id number] 19:09:24 23:00:00 Rolf Tran 2019 2019 Emergency E MHFB MHFB [id number] MHFB 19:09:00 19:09:00 2019-08-06 2019-08-06 Outpatient Miguel Caldwell [facility] [id number] 11:00:00 23:59:59 21 2019-07-28 2019-07-28 Outpatient Miguel Caldwell [facility] [id number] 14:00:00 23:59:59 20 2019-06-30 2019-07-01 Outpatient [facility] [id number] 12:14:38 23:59:59 04 2018-12-08 2018-12-08 [facility] [id number] 08:37:00 23:59:00 Neema Stewart 19 2018-11-17 2018-11-25 Outpatient Johana [facility] [id number] 08:31:00 14:50:00 Neema Stewart 16 2018-10-30 2018-10-30 Outpatient ROSA ELENA [facility] [id number] 14:41:00 23:59:00 Cindy Monroy 17 2018-10-28 2018-10-28 Outpatient Miguel Caldwell [facility] [id number] 13:45:00 23:59:59 18 2018-10-01 2018-10-01 [place] [id number] 08:33:00 23:59:00 Liborio Marin 14 2018-08-19 2018-08-19 Outpatient Miguel Caldwell [facility] [id number] 13:45:00 13:45:00 17 2018-08-19 2018-08-19 Outpatient Miguel Caldwell [facility] [id number] 10:15:00 10:15:00 16 2018-02-11 2018-02-11 Outpatient Miguel Caldwell [facility] [id number] 14:15:00 23:59:59 15 2018-02-11 2018-02-11 Outpatient Miguel Caldwell [facility] [id number] 14:15:00 23:59:59 15 2018-02-03 2018-02-04 Outpatient MHMG MHMG [id number] 10:45:00 23:59:59 02 2017-07-29 2017-07-29 Outpatient Davian [id number] 11:35:40 13:15:00 Rivera R 8 2017-07-15 2017-07-15 Outpatient Davian, [id number] 09:09:59 11:45:00 Rivera R 8 2015-09-19 2015-09-19 Outpatient Taqueriaykl, MH29 MH29 [id number] 12:41:00 23:59:00 Mallorysteve Keating 00 2015-08-29 2015-08-29 Outpatient Mucher, MHSL MHSL [id number] 10:37:00 17:25:00 Jeovanny Diana Hilaroi 2014-11-09 2014-11-10 Outpatient Albaer, MHIE MHIE [id number] 16:13:00 13:55:00 Jeovanny 03 Hilario 2013-12-15 [...] alWork s Group Group 2013-05-12 2013-05-12 Outpatient [facility] [id number] eClinic 11:30:00 11:30:00 Medical Medical alWork s Group Group Results Test Description Test Time Test Comments Results Result Comments Source URINE AND STOOL 2019-09-03 Yellow [facility] 03:02:00 *NA*(09/02/19 [place] 9:02 PM) URINE AND STOOL 2019-09-03 Slight [facility] 03:02:00 *ABN*(09/02/19 [place] 9:02 PM) URINE AND STOOL 2019-09-03 03:02:00 Test Item Value Reference Range Interpretation Comme nts UA Spec Grav (test code = UA Spec Grav) 1.011 1 [facility] [id number] 03:02:00 Test Item Value Reference Range Interpretation Comments UA pH (test code = UA pH) 8.0 1 5.0-8.0 [facility] [id number] 03:02:00Negative *NA*(09/02/19 9:02 PM)[facility] [id number] 03:02:00Negative *NA*(09/02/19 9:02 PM)[facility] [id number] 03:02:00Small *ABN*(09/02/19 9:02 PM)[facility] [id number] 03:02:00Negative (09/02/19 9:02 PM) [facility] [id number] 03:02:00Moderate *ABN*(09/02/19 9:02 PM)[facility] [id number] 03:02:00None Seen (09/02/19 9:02 PM)[facility] [id number] 03:02:46569Tefkxkhr [facility]annUR[facility] AND [id number] 03:02:0010[facility]annCHEM [id number] 11:49:002.5 [facility]annCHEM [id number] 11:49:006.1[facility]annELECTROLYTES 2018-11-25 11:49:0013.9[facility] SxqyhqeCTFYGYVHYEWJ2698-28-10 11:49:007[facility] SklztcjUPTOYEFDJBHZ7688-73-48 11:49:003.9[facility] JbqvxmzERXXBVOHHPOS3035-24-58 11:49:009.4[facility] BqawudvUSROGLLSUZQB2143-61-29 11:49:0098[facility] GKRSKKYNJDTD5349-43-74 11:49:27761Rlshcefo CrcecgzSIAGJGIZRTZG8360-53-35 11:49:0029[facility] HqcjuzdUBZGIQGUYGAU1525-62-08 11:49:67384Xefthxrb [place] OVFTIDCYDDVJ9418-43-03 11:49:006.85[facility] VmnmjpaSIMLGILOCOLQ7165-25-68 11:49:0050[facility] EmyyxglXNVGAOCGXC1374-38-06 11:49:00 Test Item Value Reference Range Interpretation Comments PTT (test code = PTT) 61.4 s 22.9-35.8 [facility] WiksodsLSPTCVNZWQ2708-49-68 11:49:00 Test Item Value Reference Range Interpretation Comments INR (test code = INR) 2.69 1 0.85-1.17 [facility] WxnqqipCPSAGHWTRL3246-07-02 11:49:00 Test Item Value Reference Range Interpretation Comments PT (test code = PT) 28.0 s 12.0-14.7 [facility] JjbsgqcHEJJOOPNRU2660-46-16 11:49:000.1[facility]annHEMATOLOGY 2018-11-25 11:49:000.7[facility] YmykadjRWSCOFRNBG7065-29-07 11:49:000.9[facility] PgnhvvtWVILEPCQZF6116-21-77 11:49:001.9[facility] KgwmfrnFAWTDZWDRT3323-89-94 11:49:007.3[facility] YrmouewGECWJSOYUH6469-28-53 11:49:006.0[facility] IHWSAXBWFL6203-74-39 11:49:008.5[facility] JfgybbeGSUZNUYNLL5652-92-03 11:49:000.8 [facility] EquekwgLDQECZXAUO3574-31-22 11:49:0067.0[facility]annHEMATOLOGY 2018-11-25 11:49:0017.7[facility] PyriqkuHMXMUHONVF6261-78-41 11:49:0011.0[facility] LlpznknSYNWILZCJK2859-44-22 11:49:002.69[facility] FfctcmvEXZRKPXCWQ1799-01-80 11:49:0025.0[facility] LfqoizdRJEZIFPGRU0557-50-22 11:49:008.4[facility] EPZHJFNLCX2064-14-10 11:49:00 Test Item Value Reference Range Interpretation Comments MCH (test code = MCH) 31.4 pg 27.0-31.0 [facility] BlxnailHCQZDFMUQA9481-67-00 11:49:0093.0[facility]annHEMATOLOGY 2018-11-25 11:49:009.2[facility] KyehktzMMHXAPFYFH4356-97-45 11:49:80534Hfufosxi JygprwcWCCFPBCTNN2985-64-06 11:49:0015.4[facility] DlesardNSXVIXELYH6051-40-16 11:49:0033.7[facility] HermannCHEM BAZYJ0747-71-21 10:46:006.7[facility]annCHEM IDLED7731-20-69 10:46:002.6[facility]annCHEM IDCUI4165-75-94 10:46:006 [facility]annCHEM BPVYL4839-34-42 10:46:0028[facility]annCHEM PANEL 2018-11-24 10:46:009.6[facility]annCHEM NCKBT7876-92-67 10:46:0057[facility]annCHEM DDFIQ5160-53-91 10:46:007.59[facility]annCHEM KRBSS1471-68-37 10:46:01648Mrjswqhi HermannCHEM EGSNU4752-22-86 10:46:005.3[facility]annCHEM RSDWD6408-46-65 10:46:0098[facility]annCHEM DHFXX1537-04-80 10:46:32545 [facility]annCHEM WOTTO3489-03-00 10:46:0015.3[facility]annHEMATOLOGY 2018-11-24 10:46:002.3[facility] MtqcjdrFYHHPWNPWL5906-60-35 10:46:007.0[facility] YubpmihBUJODHQZDZ6046-30-15 10:46:005.7[facility] EssctgrNGNBDRBYOU1054-65-24 10:46:000.9[facility] IvvjfurHRIBAHHYXB7033-55-19 10:46:000.1[facility] GKNWDMQEIK4089-91-76 10:46:000.7[facility] CrinrluJLRAVYRHVY5731-02-93 10:46:00 23.6[facility] EotbhoqXNJLGQBUSZ0357-40-64 10:46:0059.3[facility] HermannHEMATOLOGY 2018-11-24 10:46:009.2[facility] RsvxncaLNOYPRFYRV6664-36-79 10:46:000.9[facility] DhxyszpGSJGKAFLXF7996-28-05 10:46:0093.1[facility] SsqbickEBGSVCVSSL5065-01-57 10:46:0034.3[facility] IqieguhNYOMAFDCGV2319-34-28 10:46:0015.5[facility] EYTHLQCADK6884-50-04 10:46:73905Djqwppei SbahmcdZSPBVLECGA2872-75-37 10:46:009.7 [facility] AzvfzipTPKAXGFICK4420-32-00 10:46:00 Test Item Value Reference Range Interpretation Comments MCH (test code = MCH) 32.0 pg 27.0-31.0 [facility] NpdsumrMPJPFJQHQM8198-22-31 10:46:002.72[facility] HermannHEMATOLOGY 2018-11-24 10:46:008.7[facility] TenprtnKXEGGFBFFO9388-75-58 10:46:0025.3[facility] IkmlmlaBKVXMVURMZ3245-70-91 10:46:009.8[facility] QbxahtsFVRICOXXSY2083-49-53 10:46:00 Test Item Value Reference Range Interpretation Comments INR (test code = INR) 2.31 1 0.85-1.17 [facility] NhdmnhpYVURPCYLIF6343-44-85 10:46:00 Test Item Value Reference Range Interpretation Comments PTT (test code = PTT) 79.5 s 22.9-35.8 [facility] YsoprzgGYTHNGYTAI8576-32-16 10:46:00 Test Item Value Reference Range Interpretation Comments PT (test code = PT) 24.9 s 12.0-14.7 [facility]annCHEM ZTNLI9436-39-62 09:40:009[facility]annCHEM PANEL 2018-11-23 09:40:0039[facility] HermannCHEM IZIZF7187-71-47 09:40:005.64[facility]annCHEM CWUXP5501-05-32 09:40:92864Mfunfdce HermannCHEM CFSCH8926-25-51 09:40:49676Fkitoery HermannCHEM YMRRZ7899-48-45 09:40:009.4[facility]annCHEM OCNAA6692-27-40 09:40:70905Vlesmxrr HermannCHEM DAPZA4449-59-45 09:40:0013.7 [facility]annCHEM OFGGO6327-03-18 09:40:003.7[facility]annCHEM PANEL 2018-11-23 09:40:0030[facility] VwhvtxhANUGNJLYHV7340-50-74 09:40:0093.6[facility] BdiguprRZSVZTUUAP9217-55-05 09:40:0025.3[facility] EomxubxBXUDVWXNIG3980-22-56 09:40:0034.7[facility] OvwjjixXPXWRAKPZR8311-27-87 09:40:0015.7[facility] RHVUBJTLIR7323-18-35 09:40:95895Ouwqaspt QxkxpfyKPQBXIDMOS2048-81-74 09:40:00 Test Item Value Reference Range Interpretation Comments MCH (test code = MCH) 32.5 pg 27.0-31.0 [facility] VhjfghpDGUQLNNVMI3688-59-84 09:40:002.70[facility]annHEMATOLOGY 2018-11-23 09:40:008.8[facility] NyazmwnHCMMWECYTG1056-28-79 09:40:009.8[facility] RhuzjzuREZDWHOHKG3667-98-64 09:40:007.8[facility] AuthrydJQAOWDRBMD9931-45-06 09:40:00 Test Item Value Reference Range Interpretation Comments INR (test code = INR) 1.62 1 0.85-1.17 [facility] VzfradbVFUONZYHNS2595-59-02 09:40:00 Test Item Value Reference Range Interpretation Comments PTT (test code = PTT) 77.2 s 22.9-35.8 [facility] MfbywgaWWMLJETIDX2198-24-33 09:40:00 Test Item Value Reference Range Interpretation Comments PT (test code = PT) 18.9 s 12.0-14.7 [facility] DuwhapqUHDWCVKWEC7410-22-04 09:40:000.7[facility] HermannHEMATOLOGY 2018-11-23 09:40:000.6[facility] RiilfonZYIYVLRBBC9208-20-47 09:40:000.1[facility] ZipajynNQLSRNETZA3144-80-54 09:40:001.7[facility] KzssbynPXFHVMLECW0666-26-13 09:40:0060.5[facility] YkgvvnfSDMGPYKTYB2732-39-25 09:40:0021.3[facility] URAFAMDKAU6323-82-87 09:40:004.7[facility] JeyapojBUSBREWPVT8023-59-27 09:40:001.0 [facility] ZshkhqcANYTNPIKFE4284-53-64 09:40:007.9[facility] HermannHEMATOLOGY 2018-11-23 09:40:009.3[facility] HermannCHEM SLHDZ2983-48-16 10:20:007.6[facility] HermannCHEM MLDIV1571-61-76 10:20:002.5[facility] HermannPARATHYROID PROFILE 2018-11-22 10:20:001.15[facility] HermannPARATHYROID IUXGFMK8433-04-44 10:20:00 1.18[facility] HermannPARATHYROID IRFSRVE6392-33-56 09:49:001.13[facility] PARATHYROID FTCJJLO9994-59-18 09:49:001.12[facility] HermannBACTERIAL - SEROLOGY 2018-11-19 09:06:00Negative (11/19/18 3:06 AM)[facility] HermannPARATHYROID PROFILE 2018-11-19 09:06:001.11[facility] HermannPARATHYROID XIFUCEE1250-83-56 09:06:00 1.10[facility] VpxbrpdWIYFRFTHLN6078-17-95 11:43:00Negative *NA*(2/5/19 5:43 AM) [facility] HoilvbdJRYGMPINLL1627-13-37 11:43:0066.7[facility] HermannIMMUNOLOGY 2018-11-18 11:43:00Negative *NA*(11/18/18 5:43 AM)[facility] HermannIMMUNOLOGY 2018-11-18 11:43:00Negative *NA*(11/18/18 5:43 AM)[facility] HermannIMMUNOLOGY 2018-11-18 11:43:00Negative *NA*(11/18/18 5:43 AM)[facility]annBLOOD BANK EYOMIDG7927-69-18 16:45:00Product available (11/17/18 10:45 AM)[facility] DPNJQUD1493-87-10 16:45:00Product available (11/17/18 10:45 AM)[facility]BL[facility] KPUUZCL0630-61-72 16:45:00Product available (11/17/18 10:45 AM) [facility] ZJPTTGU8536-98-25 20:06:00Negative (11/14/18 2:06 PM) [facility]annCHEM NFVOB7394-09-36 16:45:003.9[facility] HermannCHEM PANEL 2018-11-14 16:45:00 Test Item Value Reference Range Interpretation Comments A/G Ratio (test code = A/G Ratio) 0.9 1 0.7-1.6 [facility]annCHEM VATMY7233-83-18 16:45:000.1[facility] HermannCHEM PANEL 2018-11-14 16:45:000.4[facility] HermannCHEM PIQUN5493-57-73 16:45:0091[facility] HermannCHEM RLMJS6874-88-76 16:45:000.5[facility] HermannCHEM YKCFE4715-32-10 16:45:003.6[facility] HermannCHEM HJPKQ5722-90-97 16:45:0021[facility] HermannCHEM HSBAU6880-87-63 16:45:0012[facility] HermannCHEM MHJRR3122-37-85 16:45:007.5 [facility] HermannSPECIAL KXPSECZJZ3661-71-32 16:45:006.8[facility] DVATTMMSSX4576-60-62 17:07:98144Ofmwrdkz FyxrixsYPQRKVMQTG0536-69-78 15:00:58533 [facility] WcnyphhSMQHUUSRHUZY4736-07-68 19:27:41047Whxwmbfg HermannELECTROLYTES 2015-08-29 19:27:31527Jrlqwcin XmtngxiXCNZILYFYFJD5194-59-33 19:27:003.6[facility] QnwcaylZYELDSNUVQFN9338-86-09 19:27:004.21[facility] TymcolnIFFOQPQYPJWU4677-81-39 19:27:0027[facility] QizsidrZHJKEDVSTLNP0826-46-07 19:27:0010.6[facility] DCMUJUPSUFWG5091-16-95 19:27:009.0[facility] KljddniWCGDOJGFBRWZ6909-25-88 19:27:0047[facility] JwtbkbpAERCBXHWZAFH1303-03-54 19:27:60388Waboygqg [facility] CUHXVIXEBOEW8020-91-34 19:27:0013[facility] HermannCHEM HFJQM9963-20-01 17:05:0024 [facility]annCHEM TAQVY2673-93-82 17:05:53008Mylxappm HermannCHEM PANEL 2014-11-01 17:05:0028[facility] HermannCHEM PLGJC4677-04-65 17:05:009.1[facility] HermannCHEM XXJII9481-29-00 17:05:81620Bqqwprnz HermannCHEM WHIAQ6383-87-10 17:05:49160Kgexzlas HermannCHEM AQAFY4681-59-58 17:05:002.6[facility] HermannCHEM WVVRI7954-93-36 17:05:004.2[facility] HermannCHEM BYCAB8820-76-66 17:05:0023 [facility] HermannCHEM SSXUA4579-76-63 17:05:0011.2[facility] HermannHEMATOLOGY 2014-11-01 17:05:05642Axtjnnxl KuweixaGKPYSSALAF5217-67-64 17:05:009.5[facility] CnwqlidLGUJPTYGQJ8086-75-92 17:05:004.89[facility] FhqqqzbZEVWPRGFNF6301-53-01 17:05:0014.3[facility] AundhmpIPPRDJYEZG4216-34-86 17:05:0010.6[facility] FZJDQEYGOW4980-93-68 17:05:0012.7[facility] OnunqmcHQCNNQQGZO6032-65-19 17:05:00 33.1[facility] GgzveijOWXYNJETFF6460-18-58 17:05:0043.3[facility] HermannHEMATOLOGY 2014-11-01 17:05:0088.6[facility] QgnshplLGZKZDMBLC0955-96-29 17:05:00 Test Item Value Reference Range Interpretation Comments MCH (test code = MCH) 29.3 pg 27.0-31.0 [facility] KhqjvsfODPQILVGQN5700-33-80 17:05:007.7[facility] HermannHEMATOLOGY 2014-11-01 17:05:000.0[facility] AwadfajZLKTEEREOR2237-37-45 17:05:000.5[facility] CitdnuoAMDTSHFYAO5327-07-17 17:05:000.2[facility] TvjmkruGPALRRNRAK8911-22-29 17:05:002.3[facility] MfwlcaiUNWGWAFEPM9512-11-84 17:05:0072.1[facility] AUBFXMZISR3060-84-52 17:05:0021.4[facility] JlbfrohNRXTKRBMGP7389-43-01 17:05:00 4.5[facility] DilroolKSFVPFBDPM1081-20-72 17:05:000.3[facility] HermannHEMATOLOGY 2014-11-01 17:05:001.7[facility] HermannSPECIAL BFKMFDGWB6171-53-24 17:05:007.1 [facility]
--- OUTSIDE RECORDS SUMMARY | 2020-09-21 21:58 | XMS REPORT | Summary of Care ---
:1945 Author Organization [facility] Urology [facility] Address [address] [place] [id number] Encounter HQ Encntr_alias(FIN) [id number] Date(s): 08/08/20 - 08/08/20 [facility] Urology [address] [address] Attending Physician: Miguel Caldwell MD Vital Signs No data available for this section Problem List Condition Effective Dates Status Health Status Informant Back ache(Confirmed) Resolved Benign prostatic hypertrophy with 08/10/14 Active outflow obstruction1 BPH(Confirmed) Active Chronic back pain(Confirmed) Active Chronic kidney disease(Confirmed) Active Chronic kidney disease stage 32 Active DM (diabetes mellitus)(Confirmed) Resolved Diabetes mellitus type 2(Confirmed) Active ESRD (end stage renal Resolved disease)(Confirmed) Essential hypertension3 Active Finding of frequency of urination4 08/10/14 Active Glycosuria5 08/10/14 Active Hypertension(Confirmed) Active HTN (hypertension)(Confirmed) Resolved Hypogonadism6 Active Hypokalemia(Confirmed) Active Malignant tumor of prostate7 11/25/14 Active Metabolic syndrome X8 09/08/13 Active Microscopic hematuria9 08/10/14 Active Mixed baogpvgikernij22 02/17/13 Active Orspatf53 Active Pain,abdomen(Confirmed) Active Renal failure(Confirmed) Active Urinary retention(Confirmed) Active Seasonal allergies(Confirmed) Active Swelling of lower limb(Confirmed) Resolved Tumor of colon(Confirmed) Active Type 2 diabetes vsbecqak61 01/05/14 Active Urinary elimination Active alteration(Confirmed)13 Urinary tract infection(Confirmed) Active 1Data migrated from [employer] on 03/12/15.2Data migrated from [employer] on 03/12/15.3Data migrated from [employer] on 03/12/15.4Data migrated from [employer] on 03/12/15.5Data migrated from [employer] on 03/12/15.6Data migrated from [employer] on 03/12/15.7Data migrated from [employer] on 04/20/15.8Data migrated from [employer] on 03/12/15.9Data migrated from [employer] on 03/12/15.10Data migrated from [employer] on 03/12/15.11Data migrated from [employer] on 03/12/15.12Data migrated from [employer] on 03/12/15.13increased frequency Allergies, Adverse Reactions, Alerts No Known Medication Allergies Medications No data available for this section Results No data available for this section Immunizations Given and Recorded Vaccine Date Status Refusal Reason pneumococcal 23-valent vaccine 11/09/14 Given pneumococcal 23-valent vaccine 09/12/10 Given Procedures Procedure Date Related Diagnosis Body Site Status Transurethral resection of prostate 08/29/15 Completed Operation on prostate 10/14/14 Comple duane Colon operation1 10/14/09 Completed Appendectomy Completed AV - Aortic valve operation Completed Bilateral extraction of cataracts Completed Cholecystectomy Completed Operation Completed 1colon resection for mass Social History Social History Type Response Alcohol Past, Type Beer. Frequency: Daily.1, 2 Employment/School Status: Retired.3 Exercise Exercise frequency: 3-4 time s/week. Exercise type: treadmill, strength training.4 Substance Abuse Use: None. Smoking Status Never smoker; Exposure to To bacco Smoke None; Cigarette Smoking Last 365 Days No; Reg Smoking Cessation Counseling No5 entered on: 12/03/19 1beer every few nuzkg8fp beer in a couple of weeks and hardly any beer in a couple of enqhkq6uax lnlxtkuebit1rkfxmyxvx training and jrtvggb3Mz changes Assessment and Plan No data available for this section
[2020-09-21] MEDS ORDERED: FENTANYL CITR 100 MCG/2 ML ONE (22:13)
--- NOTE | 2020-09-21 22:52 | EDPHYS ---
Physician Documentation [facility] Name: John Paul Morales Age: 75 yrs Sex: Male : 1945 Arrival Date: 09/21/2020 Time: 20:01 Bed 4 Private MD: ED Physician Juancarlos Morris HPI: 09/21 20:40 This 75 yrs old Male presents to ER via Ambulatory with complaints of Chest rn Pain, Heart Racing. 20:40 The patient or guardian reports chest pain that is located primarily in the substernal rn area. Onset: today. The pain does not radiate. Associated signs and symptoms: Pertinent positives: shortness of breath, Pertinent negatives: abdominal pain, cough, diaphoresis, vomiting. The chest pain is described as aching, a heaviness. Duration: The patient or guardian reports multiple episodes, that are intermittent. Modifying factors: The symptoms are alleviated by nothing. the symptoms are aggravated by dialysis. Severity of pain: At its worst the pain was moderate in the emergency department the pain is unchanged. The patient has experienced similar episodes in the past. Reports chest pain, substernal, non-radiating, began after dialysis, has been having chest pain after dialysis, also reports seen by his entry specialist recently, studies normal per patient, including stress test. Has ECHO upcoming. No cath.. Historical: - Allergies: 20:08 No Known Allergies; iw - Home Meds: 20:08 amlodipine 10 mg tab 1 tab once daily [Active]; DIALYVITE 800 0.8 mg Oral tab [Active]; iw metoprolol tartrate 50 mg Oral tab 1 tab 2 times per day [Active]; pregabalin 75 MG Oral 1 cap daily [Active]; rosuvastatin 20 mg Oral tab 1 tab once daily [Active]; tamsulosin 0.4 mg Oral cp24 1 cap once daily [Active]; Vitamin D Oral 5000 unit daily [Active]; warfarin 5 mg Oral tab 1 tab once daily [Active]; - PMHx: 20:08 Dialysis; MWF; ESRD; High Cholesterol; Hypertension; iw - PSHx: 20:08 MITRAL VALVE REPLACEMENT; iw - Immunization history:: Adult Immunizations up to date. - Social history:: Smoking status: Patient denies any tobacco usage or history of. - Family history:: not pertinent. - Hospitalizations: : No recent hospitalization is reported. ROS: 20:40 Constitutional: Negative for fever, chills, and weight loss, Eyes: Negative for injury, rn pain, redness, and discharge, Neck: Negative for injury, pain, and swelling, Cardiovascular: + chest pain/edema/palpitations Respiratory: Negative for cough, wheezing, and pleuritic chest pain, Abdomen/GI: Negative for abdominal pain, nausea, vomiting, diarrhea, and constipation, Back: Negative for injury and pain, MS/Extremity: + edema Skin: Negative for injury, rash, and discoloration, Neuro: Negative for headache, weakness, numbness, tingling, and seizure. Exam: 20:40 Constitutional: This is a well developed, well nourished patient who is awake, alert, rn appears uncomfortable Head/Face: Normocephalic, atraumatic. ENT: Mucous membranes moist. Cardiovascular: Regular rate and rhythm. No pulse deficits. Respiratory: No increased work of breathing, no retractions or nasal flaring. Abdomen/GI: soft, non-tender MS/ Extremity: Pulses equal, no cyanosis. 2+ pitting edema bilateral lower ext, equal circumference Neuro: Awake and alert, GCS 15 Vital Signs: 20:05 BP 141 / 74; Pulse 80; Resp 16; Temp 98.7; Pulse Ox 99% on R/A; Weight 104.33 kg; iw Height 6 ft. 1 in. (185.42 cm); Pain 9/10; 21:00 BP 152 / 69; Pulse 77; Resp 14; Pulse Ox 97% on R/A; rv 22:00 BP 137 / 72; Pulse 81; Resp 14; Pulse Ox 98% on R/A; rv 22:30 BP 138 / 70; Pulse 79; Resp 14; Pulse Ox 96% on R/A; rv 23:15 BP 155 / 72; Pulse 78; Resp 18; Pulse Ox 98% on R/A; wh 20:05 Body Mass Index 30.34 (104.33 kg, 185.42 cm) iw MDM: 20:31 Patient medically screened. rn 22:49 Differential diagnosis: acute myocardial infarction, acute pericarditis, coronary rn artery disease chest wall pain, pleurisy, pneumothorax, stable angina, unstable angina. The patient was given aspirin in the Emergency Department. Data reviewed: vital signs, nurses notes, lab test result(s), EKG, radiologic studies, plain films, and as a result, I will admit patient. Counseling: I had a detailed discussion with the patient and/or guardian regarding: the historical points, exam findings, and any diagnostic results supporting the discharge/admit diagnosis, lab results, radiology results, the need for further work-up and treatment in the hospital. Response to treatment: the patient's symptoms have mildly improved after treatment, and as a result, I will admit patient. Admission orders: after a detailed discussion of the patient's condition and case, the admit orders are written by me. Special discussion:. ED course: Pt with ongoing chest pain, elevated trop, could be from volume overload and ESRD but not missing dialysis and just had dialysis today. Still urinates, given aspirin and lasix. . 09/21 20:38 Order name: Basic Metabolic Panel rn 09/21 20:38 Order name: CBC with Diff rn 09/21 20:38 Order name: NT PRO-BNP rn 09/21 20:38 Order name: PT-INR rn 09/21 20:38 Order name: Troponin (emerg Dept Use Only) rn 09/21 21:08 Order name: Basic Metabolic Panel; Complete Time: 22:03 EDSD 09/21 21:08 Order name: Troponin (Emerg Dept Use Only); Complete Time: 22:03 EDSD 09/21 21:08 Order name: NT PRO-BNP; Complete Time: 22:03 EDSD 09/21 21:08 Order name: CBC with Automated Diff; Complete Time: 22:03 EDSD 09/21 21:08 Order name: Protime (+INR); Complete Time: 22:03 EDSD 09/22 00:16 Order name: COVID-19 09/22 01:19 Order name: CORONAVIRUS EDSD 09/22 04:23 Order name: CBC with Automated Diff EDSD 09/22 05:08 Order name: Protime (+INR) EDSD 09/21 20:38 Order name: XRAY Chest (1 view) rn 09/21 20:38 Order name: EKG; Complete Time: 21:19 rn 09/21 20:38 Order name: Cardiac monitoring; Complete Time: 20:40 rn 09/21 20:38 Order name: EKG - Nurse/Tech; Complete Time: 20:40 rn 09/21 20:38 Order name: IV Saline Lock; Complete Time: 20:40 rn 09/22 05:20 Order name: Comprehensive Metabolic Panel EDSD 09/22 05:20 Order name: Lipid Profile EDSD 09/22 05:20 Order name: T4 Free EDSD 09/22 05:20 Order name: Magnesium EDSD 09/22 05:20 Order name: Thyroid Stimulating Hormone EDSD 09/22 05:21 Order name: Troponin I EDSD 09/22 10:44 Order name: Troponin I [facility] 09/21 20:38 Order name: Labs collected and sent; Complete Time: 20:40 rn 09/21 20:38 Order name: O2 Per Protocol; Complete Time: 20:40 rn 09/21 20:38 Order name: O2 Sat Monitoring; Complete Time: 20:41 rn Administered Medications: 20:47 Drug: morphine 4 mg {Note: RASS 0.} Route: IVP; Site: right antecubital; 22:36 Follow up: Response: No adverse reaction; Pain is decreased; RASS: Alert and Calm (0) 22:02 Drug: fentaNYL (PF) 50 mcg {Note: RASS 0.} Route: IVP; Site: right antecubital; 22:36 Follow up: Response: No adverse reaction; Pain is decreased; RASS: Alert and Calm (0) 23:25 Follow up: Response: No adverse reaction; Pain is decreased; RASS: Alert and Calm (0) 22:46 Drug: Aspirin Chewable Tablet 324 mg Route: PO; 23:25 Follow up: Response: No adverse reaction 22:46 Drug: Lasix 60 mg Route: IVP; Site: right antecubital; 23:25 Follow up: Response: No adverse reaction Disposition: 09/21/20 22:51 Hospitalization ordered by Derick Morris for Observation. Preliminary diagnosis are Chest pain, unspecified, End stage renal disease, Pulmonary edema. - Bed requested for Telemetry/MedSurg (observation). - Status is Observation. sv - Condition is Stable. - Problem is new. - Symptoms have improved. Signatures: Dispatcher [employer] EDMS Leonie Calderon RN RN sv Williams, Irene, RN RN iw Nieto, Roman, MD MD rn Lasagna, Tonya, RN RN [facility] Lidya Hatfield [facility] Aurelio Blackwell Corrections: (The following items were deleted from the chart) 23:32 22:51 Hospitalization Ordered by Derick Morris MD for Observation. Preliminary tl1 diagnosis is Chest pain, unspecified; End stage renal disease; Pulmonary edema. Bed requested for Telemetry/MedSurg (observation). Status is Observation. Condition is Stable. Problem is new. Symptoms have improved. rn 09/22 06:14 12 23:32 09/21/2020 22:51 Hospitalization Ordered by Derick Morris MD for tl1 Observation. Preliminary diagnosis is Chest pain, unspecified; End stage renal disease; Pulmonary edema. Bed requested for [facility] ER HOLD. Status is Observation. Condition is Stable. Problem is new. Symptoms have improved. tl1 12 06:23 06:14 09/21/2020 22:51 Hospitalization Ordered by Derick Mroris MD for Observation. tl1 Preliminary diagnosis is Chest pain, unspecified; End stage renal disease; Pulmonary edema. Bed requested for Telemetry/MedSurg (observation). Status is Observation. Condition is Stable. Problem is new. Symptoms have improved. tl1 12:27 06:23 09/21/2020 22:51 Hospitalization Ordered by Derick Morris MD for Observation. dh3 Preliminary diagnosis is Chest pain, unspecified; End stage renal disease; Pulmonary edema. Bed requested for [facility] ER HOLD. Status is Observation. Condition is Stable. Problem is new. Symptoms have improved. tl1 14:47 12:27 09/21/2020 22:51 Hospitalization Ordered by Derick Morris MD for Observation. sv Preliminary diagnosis is Chest pain, unspecified; End stage renal disease; Pulmonary edema. Bed requested for Telemetry/MedSurg (observation). Status is Observation. Condition is Stable. Problem is new. Symptoms have improved. 3
--- NOTE | 2020-09-21 22:52 | ER ---
Nurse's Notes [facility] Name: John Paul Morales Age: 75 yrs Sex: Male : 1945 Arrival Date: 09/21/2020 Time: 20:01 Bed 4 Private MD: Diagnosis: Chest pain, unspecified;End stage renal disease;Pulmonary edema Presentation: 09/21 20:05 Chief complaint: Patient states: left sided chest pain and SOB started after dialysis iw today around 4 pm, pain feels like squeezing pressure , constant 9/10. Coronavirus screen: shortness of breath. Ebola Screen: Patient negative for fever greater than or equal to 101.5 degrees Fahrenheit, and additional compatible Ebola Virus Disease symptoms Patient denies exposure to infectious person. Patient denies travel to an Ebola-affected area in the 21 days before illness onset. No symptoms or risks identified at this time. Initial Sepsis Screen: Does the patient meet any 2 criteria? No. Patient's initial sepsis screen is negative. Does the patient have a suspected source of infection? No. Patient's initial sepsis screen is negative. Risk Assessment: Do you want to hurt yourself or someone else? Patient reports no desire to harm self or others. Onset of symptoms was September 21, 2020. 20:05 Method Of Arrival: Ambulatory iw 20:05 Acuity: URSULA 2 iw Historical: - Allergies: 20:08 No Known Allergies; iw - Home Meds: 20:08 amlodipine 10 mg tab 1 tab once daily [Active]; DIALYVITE 800 0.8 mg Oral tab [Active]; iw metoprolol tartrate 50 mg Oral tab 1 tab 2 times per day [Active]; pregabalin 75 MG Oral 1 cap daily [Active]; rosuvastatin 20 mg Oral tab 1 tab once daily [Active]; tamsulosin 0.4 mg Oral cp24 1 cap once daily [Active]; Vitamin D Oral 5000 unit daily [Active]; warfarin 5 mg Oral tab 1 tab once daily [Active]; - PMHx: 20:08 Dialysis; MWF; ESRD; High Cholesterol; Hypertension; iw - PSHx: 20:08 MITRAL VALVE REPLACEMENT; iw - Immunization history:: Adult Immunizations up to date. - Social history:: Smoking status: Patient denies any tobacco usage or history of. - Family history:: not pertinent. - Hospitalizations: : No recent hospitalization is reported. Screenin:00 Abuse screen: Denies threats or abuse. Denies injuries from another. Nutritional wh screening: No deficits noted. Tuberculosis screening: No symptoms or risk factors identified. Fall Risk None identified. Assessment: 20:45 General: Appears in no apparent distress. uncomfortable, Behavior is calm, cooperative, wh appropriate for age. Pain: Complains of pain in chest Pain does not radiate. Pain currently is 9 out of 10 on a pain scale. Quality of pain is described as pressure, Pain began 2-3 days ago. Neuro: Level of Consciousness is awake, alert, obeys commands, Oriented to person, place, time, situation, Appropriate for age. Cardiovascular: Reports chest pain, Heart tones S1 S2 Edema is 2+ to left ankle and right ankle pitting to left ankle and right ankle. Respiratory: Airway is patent Respiratory effort is even, unlabored, Respiratory pattern is regular, symmetrical, Breath sounds are clear bilaterally. GI: Abdomen is flat, non-distended. : No signs and/or symptoms were reported regarding the genitourinary system. EENT: No signs and/or symptoms were reported regarding the EENT system. Derm: Skin is intact, is healthy with good turgor, Skin is pink, warm \T\ dry. normal. Musculoskeletal: Circulation, motion, and sensation intact. 22:00 Reassessment: Patient appears in no apparent distress at this time. No changes from previously documented assessment. Patient and/or family updated on plan of care and expected duration. Pain level reassessed. Patient is alert, oriented x 3, equal unlabored respirations, skin warm/dry/pink. 23:15 Reassessment: Patient appears in no apparent distress at this time. Patient and/or family updated on plan of care and expected duration. Pain level reassessed. Patient is alert, oriented x 3, equal unlabored respirations, skin warm/dry/pink. MD at bedside explained POC need for admit. 09/22 00:50 Reassessment: Pt refused COvid swab, notified Charge Nurse who stated Pt will be wh staying here until DC. Vital Signs: 09/21 20:05 BP 141 / 74; Pulse 80; Resp 16; Temp 98.7; Pulse Ox 99% on R/A; Weight 104.33 kg; iw Height 6 ft. 1 in. (185.42 cm); Pain 9/10; 21:00 BP 152 / 69; Pulse 77; Resp 14; Pulse Ox 97% on R/A; rv 22:00 BP 137 / 72; Pulse 81; Resp 14; Pulse Ox 98% on R/A; rv 22:30 BP 138 / 70; Pulse 79; Resp 14; Pulse Ox 96% on R/A; rv 23:15 BP 155 / 72; Pulse 78; Resp 18; Pulse Ox 98% on R/A; wh 20:05 Body Mass Index 30.34 (104.33 kg, 185.42 cm) iw ED Course: 20:01 Patient arrived in ED. cl3 20:07 Triage completed. iw 20:31 Juancarlos Morris MD is Attending Physician. rn 20:40 Aurelio Blackwell is Primary Nurse. wh 20:45 Arm band placed on right wrist. wh 20:45 No provider procedures requiring assistance completed. Inserted saline lock: 20 gauge wh in right antecubital area, using aseptic technique. Blood collected. 21:00 Patient has correct armband on for positive identification. Placed in gown. Bed in low wh position. Call light in reach. Side rails up X 1. site monitor on. Pulse ox on. NIBP on. 21:00 Patient maintains SpO2 saturation greater than 95% on room air. wh 22:13 XRAY Chest (1 view) In Process Unspecified. EDMS 22:51 Derick Morris MD is Hospitalizing Provider. rn 23:38 Patient admitted, IV remains in place. 09/22 07:31 Primary Nurse role handed off by Aurelio Blackwell vg1 07:31 Alexandria Mobley, RN is Primary Nurse. vg1 Administered Medications: 09/21 20:47 Drug: morphine 4 mg {Note: RASS 0.} Route: IVP; Site: right antecubital; 22:36 Follow up: Response: No adverse reaction; Pain is decreased; RASS: Alert and Calm (0) 22:02 Drug: fentaNYL (PF) 50 mcg {Note: RASS 0.} Route: IVP; Site: right antecubital; 22:36 Follow up: Response: No adverse reaction; Pain is decreased; RASS: Alert and Calm (0) 23:25 Follow up: Response: No adverse reaction; Pain is decreased; RASS: Alert and Calm (0) 22:46 Drug: Aspirin Chewable Tablet 324 mg Route: PO; 23:25 Follow up: Response: No adverse reaction 22:46 Drug: Lasix 60 mg Route: IVP; Site: right antecubital; 23:25 Follow up: Response: No adverse reaction Outcome: 22:51 Decision to Hospitalize by Provider. rn 23:38 Admitted to ER Hold. Please see [facility] for further documentation. 23:38 Condition: stable 23:38 Instructed on the need for admit. 09/22 14:47 Patient left the ED. sv Signatures: Dispatcher [employer] EDMS Leonie Calderon RN MATTEO Yuki Alicia RN RN Juancarlos Morris MD MD rn Habalo, Winsy Duy Meeks RN Curtis Mina cl3 Alexandria Mobley RN RN vg1 Corrections: (The following items were deleted from the chart) 09/21 20:09 20:05 BP 141 / 74; Pulse 80bpm; Resp 16bpm; Pulse Ox 99% RA; Temp 98.7F; [facility]
[2020-09-21] MEDS ORDERED: ASPIRIN 81 MG CHEWABLE TABLET ONE (22:56)
[2020-09-21] MEDS ORDERED: FUROSEMIDE 100 MG/10 ML VIAL IV ONE (22:56)
--- NOTE | 2020-09-22 00:51 | P.HP ---
Certification for Inpatient Patient admitted to: Observation With expected LOS: <2 Midnights Patient will require the following post-hospital care: None Practitioner: I am a practitioner with admitting privileges, knowledge of patient current condition, hospital course, and medical plan of care. Services: Services provided to patient in accordance with Admission requirements found in Title 42 Section 412.3 of the Code of Federal Regulations <Jeff East - Last Filed: 09/22/20 00:47> Patient History Date of Service: 09/22/20 Primary Care Provider: Out-of-town physician Reason for admission: Chest pain History of Present Illness: 75-year-old male with history of end-stage renal disease on hemodialysis Saturday, hypertension, hyperlipidemia presents to the emergency department for chest pain. Patient reports that he had episode of chest pain after dialysis lasting approximately 4 hr. Pain is described as squeezing, located in the anterior chest wall and nonradiating. Patient did have some associated shortness of breath at that time. Patient did have recent outpatient stress test approximately 2 weeks ago which was normal. Patient denies similar pain in the past. Patient is on warfarin 5 mg p.o. daily secondary to mechanical heart valve. Initial troponin 0.3, EKG with some mild depression in lateral leads, chest x-ray without significant acute findings, patient did appear to be mildly overloaded, was given Lasix in the emergency department. Patient does make some urine. ED provider wishes to admit patient for further evaluation and management. When I saw the patient in the ER he was awake, alert, oriented x3. Patient was chest pain-free at the time of evaluation. Will admit to telemetry floor with cardiology consult and trend troponins. - Past Medical/Surgical History Diabetic: Yes -: HTN -: DM 2-diet controlled -: ESRD on hemodialysis Saturday -: Mechanical valve, on warfarin -: TURP -: Colonic mass removed -: nose surgery -: prostate surgery Psychosocial/ Personal History: Patient lives with his family - Family History Family History: Reviewed- Non-Contributory - Social History Smoking Status: Never smoker Alcohol use: No CD- Drugs: No Caffeine use: Yes Place of Residence: Home <Jeff East - Last Filed: 09/22/20 00:47> Date of Service: 09/28/20 <Derick Morris - Last Filed: 09/28/20 13:09> Allergies No Known Allergies Allergy (Verified 09/22/20 01:49) Home Medications: RX: Amlodipine [Norvasc*] 10 mg PO DAILY 07/29/20 RX: Lidocaine/Prilocaine [Lidocaine-Prilocaine Cream] 1 appl TOP M,W,F PRN 07/29/20 RX: Metoprolol Tartrate 50 mg PO BID 07/29/20 RX: Rosuvastatin [Crestor*] 20 mg PO BEDTIME 07/29/20 RX: Tamsulosin HCl [Flomax] 0.4 mg PO DAILY 07/29/20 RX: Warfarin Sodium 5 mg PO DAILY 07/29/20 Hydrocodone Bit/Acetaminophen [Hydrocodon-Acetaminoph 2.5-325] 2.5 - 325 mg PO DAILY 09/22/20 Review of Systems 10-point ROS is otherwise unremarkable Respiratory: Shortness of Breath Cardiovascular: Chest Pain <Jeff East - Last Filed: 09/22/20 00:47> Physical Examination - Physical Exam General: Alert, In no apparent distress, Oriented x3 HEENT: Atraumatic, Normocephalic, PERRLA, Mucous membr. moist/pink Neck: Supple Respiratory: Normal air movement, Diminished (Bilateral) Cardiovascular: Regular rate/rhythm, Normal S1 S2 Capillary refill: <2 Seconds Gastrointestinal: Normal bowel sounds, Soft and benign, No tenderness Musculoskeletal: No contractures, No erythema, No tenderness Integumentary: No significant lesion, No tenderness/swelling, No erythema Neurological: Normal speech, Normal strength at 5/5 x4 extr, Normal tone, Sensation intact - Studies Laboratory Data (last 24 hrs) 09/21/20 20:45: PT 33.9 H, INR 2.93 09/21/20 20:45: WBC 13.2 H, Hgb 11.2 L, Hct 34.1 L, Plt Count 163 09/21/20 20:45: Sodium 137, Potassium 4.5, BUN 38 H, Creatinine 6.24 H*, Glucose 137 H 09/21/20 20:38: PT Cancelled, INR Cancelled 09/21/20 20:38: WBC Cancelled, Hgb Cancelled, Hct Cancelled, Plt Count Cancelled 09/21/20 20:38: Sodium Cancelled, Potassium Cancelled, BUN Cancelled, Creatinine Cancelled, Glucose Cancelled <Jeff East - Last Filed: 09/22/20 00:47> Assessment and Plan - Plan Assessment Chest pain rule out ACS End-stage renal disease on hemodialysis Saturday Mechanical heart valve on chronic anticoagulation therapy Hypertension Hyperlipidemia Diabetes mellitus type 2-diet controlled Plan Chest pain rule out ACS: Initial troponin 0.3. Trend troponins, cardiology consult in place. Monitor on telemetry. Continue warfarin for DVT prophylaxis. End-stage renal disease on hemodialysis Saturday: Renal diet in place, nephrology consult in place. Patient did complete dialysis today although he does appear mildly overload at this time. Continue to monitor closely. Appreciate further input from nephrology. Mechanical heart valve on chronic anticoagulation therapy: Continue warfarin 5 mg p.o. daily. Monitor INR. Hypertension: Continue amlodipine and metoprolol. Hyperlipidemia: Continue rosuvastatin Diabetes mellitus type 2-diet controlled: Monitor blood sugar daily labs. Blo od sugar 137, not currently taking any medications. Discharge Plan: Home Plan to discharge in: 24 Hours - Advance Directives Does patient have a Living Will: No Does patient have a Durable POA for Healthcare: No - Code Status/Comfort Care Code Status Assessed: Yes (Full code) Critical Care: No Time Spent Managing Pts Care (In Minutes): 55 <Jeff East - Last Filed: 09/22/20 00:47> - Plan Plan of care reviewed. Agree as noted above by Jeff East except as noted below: Holding home warfarin in case of procedure. Troponin increasing, NSTEMI. C ardiology aware and to see patient <Derick Morris - Last Filed: 09/28/20 13:09>
[2020-09-22] MEDS ORDERED: ACETAMINOPHEN 500 MG TAB PO PRN (01:18)
[2020-09-22] MEDS ORDERED: ONDANSETRON 4 MG/2 ML VIAL IV PRN (01:18)
[2020-09-22] MEDS ORDERED: HYDROCODONE/APAP 7.5/325 MG TAB PO PRN (01:18)
[2020-09-22 04:22] LABS: Absolute Lymphocytes (CBC) 1.6 K/uL (0.7-4.9); Hematocrit 31.2 % (39.6-49.0); Lymphocytes % 12.3 % (15.3-44.8); MPV 9.6 fL (7.6-11.3); RBC Red Blood Cell Count 3.38 M/uL (4.33-5.43)
[2020-09-22] MEDS: MORPHINE 2 MG/ML SYR IV PRN (04:26)
[2020-09-22] MEDS ORDERED: MORPHINE 2 MG/ML SYR ONE (04:37)
[2020-09-22 04:39] LABS: Protime INR 2.93
[2020-09-22 05:03] LABS: Albumin 3.2 g/dL (3.4-5.0); Bilirubin Total 1.2 mg/dL (0.2-1.0); Magnesium 2.3 mg/dL (1.8-2.4); Potassium 4.4 mmol/L (3.5-5.1); Protein, Total 7.7 g/dL (6.4-8.2); Thyroid Stimulating Hormone 1.31 uIU/mL (0.360-3.740)
[2020-09-22] MEDS: METOPROLOL XL 50 MG TAB PO SCH ×2 (06:00→17:29)
--- NOTE | 2020-09-22 07:31 | RAD REPORT ---
EXAM DESCRIPTION: Tannat Single View09/21/2020 10:13 pm CLINICAL HISTORY: Chest pain COMPARISON: none FINDINGS: Mild bilateral pulmonary opacities. The heart is mildly enlarged. IMPRESSION: Mild bilateral pulmonary opacities may indicate mild interstitial pulmonary edema
--- NOTE | 2020-09-22 08:34 | P.CNS ---
Date of Consult: 09/22/20 Reason for Consult: ESRD Requesting Physician: Derick Morris Primary Care Provider: Out-of-town physician Chief Complaint: Chest pain History of Present Illness: 75-year-old male with history of end-stage renal disease on hemodialysis Saturday, hypertension, hyperlipidemia presents to the emergency department for chest pain. Patient reports that he had episode of chest pain after dialysis lasting approximately 4 hr. Pain is described as squeezing, located in the anterior chest wall and nonradiating. Patient did have some associated shortness of breath at that time. Patient did have recent outpatient stress test approximately 2 weeks ago which was normal. Patient denies similar pain in the past. Patient is on warfarin 5 mg p.o. daily secondary to mechanical heart valve. Initial troponin 0.3, EKG with some mild depression in lateral leads, chest x-ray without significant acute findings, patient did appear to be mildly overloaded, was given Lasix in the emergency de partment. Patient does make some urine. ED provider wishes to admit patient for further evaluation and management. 20:40 This 75 yrs old Male presents to ER via Ambulatory with complaints of Chest rn Pain, Heart Racing. 20:40 The patient or guardian reports chest pain that is located primarily in the substernal rn area. Onset: today. The pain does not radiate. Associated signs and symptoms: Pertinent positives: shortness of breath, Pertinent negatives: abdominal pain, c ough, diaphoresis, vomiting. The chest pain is described as aching, a heaviness. Duration: The patient or guardian reports multiple episodes, that are intermittent. Modifying factors: The symptoms are alleviated by nothing. the symptoms are aggravated by dialysis. Severity of pain: At its worst the pain was moderate in the [facility] department the pain is unchanged. The patient has experienced similar episodes in the past. 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 Has ECHO upcoming. No cath Allergies No Known Allergies Allergy (Verified 09/22/20 01:49) Home medications list reviewed: Yes Home Medications: Amlodipine [Norvasc*] 10 mg PO DAILY 07/29/20 Lidocaine/Prilocaine [Lidocaine-Prilocaine Cream] 1 appl TOP M,W,F PRN 07/29/20 Metoprolol Tartrate 50 mg PO BID 07/29/20 Rosuvastatin [Crestor*] 20 mg PO BEDTIME 07/29/20 Tamsulosin HCl [Flomax] 0.4 mg PO DAILY 07/29/20 Warfarin Sodium 5 mg PO DAILY 07/29/20 Hydrocodone Bit/Acetaminophen [Hydrocodon-Acetaminoph 2.5-325] 2.5 - 325 mg PO DAILY 09/22/20 - Past Medical/Surgical History Diabetic: Yes -: HTN -: DM 2-diet controlled -: ESRD on hemodialysis Saturday -: Mechanical valve, on warfarin -: TURP -: Colonic mass removed -: nose surgery -: prostate surgery Psychosocial/ Personal History: Patient lives with his family - Social History Alcohol use: No CD- Drugs: No Caffeine use: Yes Place of Residence: Home Review of Systems 10-point ROS is otherwise unremarkable General: Weakness, Malaise Cardiovascular: Chest Pain, Edema Musculoskeletal: Back Pain Neurological: Weakness Physical Examination Temp Pulse Resp BP Pulse Ox 97.8 F 76 16 154/69 H 99 09/22/20 08:00 09/22/20 08:00 09/22/20 08:00 09/22/20 08:00 09/22/20 08:00 General: Oriented x3, Cooperative HEENT: Atraumatic Neck: Supple Respiratory: Clear to auscultation bilaterally Cardiovascular: Regular rate/rhythm, Edema Gastrointestinal: Soft and benign, Non-distended Musculoskeletal: No clubbing, No contractures Integumentary: No rashes, No cyanosis Neurological: Normal speech Laboratory Data (last 24 hrs) 09/21/20 20:45: PT 33.9 H, INR 2.93 09/21/20 20:45: WBC 13.2 H, Hgb 11.2 L, Hct 34.1 L, Plt Count 163 09/21/20 20:45: Sodium 137, Potassium 4.5, BUN 38 H, Creatinine 6.24 H*, Glucose 137 H 09/21/20 20:38: PT Cancelled, INR Cancelled 09/21/20 20:38: WBC Cancelled, Hgb Cancelled, Hct Cancelled, Plt Count Cancelled 09/21/20 20:38: Sodium Cancelled, Potassium Cancelled, BUN Cancelled, Creatinine Cancelled, Glucose Cancelled Imagings Data: EXAM DESCRIPTION: Debby Single View09/21/2020 10:13 pm CLINICAL HISTORY: Chest pain COMPARISON: none FINDINGS: Mild bilateral pulmonary opacities. The heart is mildly enlarged. IMPRESSION: Mild bilateral pulmonary opacities may indicate mild interstitial pulmonary edema Conclusions/Impression: A/ ESRD on HD HTN with CKD/ CHF Diastolic CHF, chronic AVR on anticoagulation DM II with CKD Moderate malnutrition Anemia in CKD KHALIF/ Secondary HyperPTH BPH with LUTS P/ Continue current POC and Medications. Follow up with cardiology for chest pain. Arrange for HD on Saturday Restart home medications as indicated. Give Epo. Start Vitamin D. No NSAIDs. AM labs. Daily weight. Thank you kindly for the consultation.
[2020-09-22] MEDS: AMLODIPINE 10 MG TAB PO SCH (09:00)
[2020-09-22] MEDS ORDERED: AMLODIPINE 10 MG TAB ONE (09:55)
--- NOTE | 2020-09-22 10:58 | EKG ---
Test Date: 2020-09-21 Test Time: 20:15:25 Supportability Engineer: RADHA MEASUREMENT RESULTS: Intervals: Rate: 74 VA: 182 QRSD: 74 QT: 406 QTc: 450 [place]: P: 69 VA: 182 QRS: -35 T: 130 INTERPRETIVE STATEMENTS: Normal sinus rhythm Left axis deviation Left ventricular hypertrophy with repolarization abnormality Abnormal ECG No previous ECG available for comparison Electronically Signed On 09-22-20 10:56:25 TEST MANAGER by Wilder Wilson
[2020-09-22] MEDS ORDERED: WARFARIN SODIUM 5 MG TAB PO SCH (17:00)
--- NOTE | 2020-09-22 18:14 | P.PN ---
Subjective Date of Service: 09/22/20 Primary Care Provider: Out-of-town physician Chief Complaint: Chest pain Subjective: No new changes (continues with chest pain, troponin climbing) Review of Systems 10-point ROS is otherwise unremarkable Physical Examination - Vital Signs Temperature: 97.7 F Blood Pressure: 144/65 Pulse: 73 Respirations: 16 Pulse Ox (%): 96 - Physical Exam General: Alert, In no apparent distress, Oriented x3 HEENT: Sclerae nonicteric Respiratory: Clear to auscultation bilaterally Cardiovascular: No edema, Regular rate/rhythm, Systolic murmur Gastrointestinal: Soft and benign, No tenderness Musculoskeletal: No tenderness Neurological: Normal speech, Normal affect - Studies Laboratory Data (last 24 hrs) 09/22/20 09:40: Troponin I 10.10 H* D 09/22/20 04:08: Sodium 137, Potassium 4.4, BUN 44 H, Creatinine 6.71 H*, Glucose 107 H, Magnesium 2.3, Total Bilirubin 1.2 H, AST 48 H, ALT 36, Alkaline Phosphatase 71, Triglycerides 143, Cholesterol 111, HDL Cholesterol 27 L, Cholesterol/HDL Ratio 4.11 09/22/20 04:08: PT 33.9 H, INR 2.93 09/22/20 04:08: WBC 13.0 H, Hgb 10.4 L, Hct 31.2 L, Plt Count 145 L 09/22/20 04:08: Troponin I 5.85 H* 09/21/20 20:45: PT 33.9 H, INR 2.93 09/21/20 20:45: WBC 13.2 H, Hgb 11.2 L, Hct 34.1 L, Plt Count 163 09/21/20 20:45: Sodium 137, Potassium 4.5, BUN 38 H, Creatinine 6.24 H*, Glucose 137 H 09/21/20 20:38: PT Cancelled, INR Cancelled 09/21/20 20:38: WBC Cancelled, Hgb Cancelled, Hct Cancelled, Plt Count Cancelled 09/21/20 20:38: Sodium Cancelled, Potassium Cancelled, BUN Cancelled, Creatinine Cancelled, Glucose Cancelled Assessment & Plan Physician Review Additional Text: NSTEMI ESRD on hemodialysis Saturday Mechanical heart valve on chronic anticoagulation therapy Hypertension Hyperlipidemia Diabetes mellitus type 2-diet controlled Plan NSETMI: troponin climbing, cardiology consulted monitor on telemetry hold warfarin, will need cath - INR needs to be <1.5 echo ordered per cardiology recommendations End-stage renal disease on hemodialysis Saturday: Renal diet in place, nephrology consult in place. Mechanical heart valve on chronic anticoagulation therapy: hold warfarin, start lovenox when becomes subtherapeutic, daily INR Hypertension: Continue amlodipine and metoprolol. Hyperlipidemia: Continue rosuvastatin Diabetes mellitus type 2-diet controlled: Monitor blood sugar daily labs. Dispo: anticipate hospitalization > 48hrs, will need INR < 1.5 and will likely need cardiac cath Time Spent Managing Pts Care (In Minutes): 35
[2020-09-22] MEDS: ROSUVASTATIN 10 MG TAB PO SCH (21:06)
[2020-09-22] MEDS: TAMSULOSIN 0.4 MG SR CAP PO SCH (21:06)
[2020-09-22] MEDS ORDERED: LORazepam 2 MG/ML VIAL IV ONE (23:48)
[2020-09-23 02:54] LABS: Absolute Lymphocytes (CBC) 0.9 K/uL (0.7-4.9); Basophils % 1.1 % (0-1.3); Hematocrit 31.2 % (39.6-49.0); Lymphocytes % 6.5 % (15.3-44.8); MPV 9.4 fL (7.6-11.3); RBC Red Blood Cell Count 3.33 M/uL (4.33-5.43)
[2020-09-23 03:16] LABS: Magnesium 2.3 mg/dL (1.8-2.4); Potassium 4.6 mmol/L (3.5-5.1)
[2020-09-23] MEDS: METOPROLOL XL 50 MG TAB PO SCH ×2 (05:29→17:03)
[2020-09-23] MEDS: VITAMIN D 5,000 UNIT CAP PO SCH (08:32)
[2020-09-23] MEDS: SEVELAMER CARBONATE 800 MG TABLET PO SCH ×3 (08:32→17:03)
[2020-09-23] MEDS: AMLODIPINE 10 MG TAB PO SCH (08:32)
[2020-09-23] MEDS: MULTIVITAMINS,THERAPEUT 1 TAB PO SCH (08:32)
[2020-09-23] MEDS: DOCUSATE NA 100 MG CAP PO SCH ×2 (08:33→20:34)
[2020-09-23] MEDS: CALCITROL 0.25 MCG CAP PO SCH (08:33)
[2020-09-23 09:49] LABS: Protime INR 3.37
--- NOTE | 2020-09-23 11:08 | ECHO ---
HEIGHT: 6 ft 1 in WEIGHT: 218 lb 11.2 oz DATE OF STUDY: 09/23/[address]: Derick Morris MD 2-DIMENSIONAL: YES M.MODE: YES DOPPLER: YES COLOR FLOW: YES TDS: NO PORTABLE: NO DEFINITY: NO BUBBLE STUDY: NO DIAGNOSIS: NSTEMI CARDIAC HISTORY: CATHERIZATION: SURGERY: PROSTHETIC VALVE: PACEMAKER: MEASUREMENTS (cm) DIASTOLIC (NORMALS) SYSTOLIC (NORMALS) IVSd 1.2 (0.6-1.2) LA Diam (1.9-4.0) LVEF 51% LVIDd 5.3 (3.5-5.7) LVIDs 4.0 (2.0-3.5) %FS 26% LVPWd 1.3 (0.6-1.2) Ao Diam 2.8 (2.0-3.7) 2 DIMENSIONAL ASSESSMENT: RIGHT ATRIUM: NORMAL LEFT ATRIUM: NORMLA RIGHT VENTRICLE: NORMAL LEFT VENTRICLE: SEE BELOW TRICUSPID VALVE: MITRAL VALVE: MITRAL ANNULAR CALCIFICATION PULMONIC VALVE: NORMAL AORTIC VALVE: NORMAL PROSTHESIS PERICARDIAL EFFUSION: NONE AORTIC ROOT: NORMAL LEFT VENTRICULAR WALL MOTION: MILD ANTEROSEPTAL HYPOKINESIS. DOPPLER/COLOR FLOW: SEE BELOW. COMMENTS: LOW NORMAL LEFT VENTRICULAR EJECTION FRACTION 50-55%. MILD ANTEROSEPTAL HYPOKINESIS. SEVERE PULMONARY HYPERTENSION WITH RIGHT VENTRICULAR SYSTOLIC PRESSURE >60 mmHg. RIGHT ATRIAL PRESSURE >20. AORTIC VALVE PROSTHESIS FUNCTION WELL WITH DVI OF 0.51 TECHNOLOGIST: Maria G CARMONA
--- NOTE | 2020-09-23 13:18 | P.PN ---
Subjective Date of Service: 09/23/20 Primary Care Provider: Out-of-town physician Chief Complaint: Chest pain Subjective: Improving (no chest pain since yesterday, troponin trending down continues with some slight SOB, on 2-3 L NC, and swelling of b/l legs doesn't want dialysis today) Review of Systems 10-point ROS is otherwise unremarkable Physical Examination - Vital Signs Temperature: 97.7 F Blood Pressure: 139/63 Pulse: 72 Respirations: 16 Pulse Ox (%): 96 - Physical Exam General: Alert, In no apparent distress HEENT: Sclerae nonicteric Respiratory: Crackles/rales (very mild at b/l bases) Cardiovascular: Regular rate/rhythm, Edema (b/l 1-2+ edema), Systolic murmur Gastrointestinal: Soft and benign, No tenderness Musculoskeletal: No tenderness Integumentary: No rashes Neurological: Normal speech, Normal affect Assessment & Plan Physician Review Additional Text: NSTEMI ESRD on hemodialysis Saturday Mechanical heart valve on chronic anticoagulation therapy Hypertension Hyperlipidemia Diabetes mellitus type 2-diet controlled Plan NSETMI: troponin peaked at 13, cardiology consulted - recommend cardiac cath, but INR needs to be <1.5 INR increased this morning; hold warfarin monitor on telemetry TTE (09/22): EF 50-55%, mild anteroseptal hypokinesis. severe Pulm HTN with RV systolic pressure > 60mmHg. AoV prosthesis functioning well End-stage renal disease on hemodialysis Saturday: Renal diet in place, nephrology consulted - for dialysis tomorrow Mechanical heart valve on chronic anticoagulation therapy: hold warfarin, start lovenox when becomes subtherapeutic, daily INR Hypertension: Continue amlodipine and metoprolol. Hyperlipidemia: Continue rosuvastatin Diabetes mellitus type 2-diet controlled: Monitor blood sugar daily labs. Dispo: anticipate hospitalization > 48hrs, will need INR < 1.5 for cardiac cath Time Spent Managing Pts Care (In Minutes): 35
[2020-09-23] MEDS ORDERED: EPOETIN ALFA-EPBX 4,000 UNIT/ML VIAL SQ SCH (17:00)
--- NOTE | 2020-09-23 20:03 | P.PN ---
Date of Service: 09/23/20 Vital Signs Temp Pulse Resp BP Pulse Ox 96.6 F L 73 16 141/60 H 97 09/23/20 16:00 09/23/20 17:03 09/23/20 16:00 09/23/20 17:03 09/23/20 16:00 Medications Acetaminophen (Acetaminophen 500 Mg Tab) 500 mg PO Q4HP PRN PRN Reason: TEMP > 100' F Stop: 10/22/20 01:19 Hydrocodone Bitart/Acetaminophen (Hydrocodone/Apap 7.5/325 Mg Tab) 1 tab PO Q4H PRN PRN Reason: Pain scale 8-10 (Severe) Stop: 10/22/20 01:19 Amlodipine Besylate (Amlodipine 10 Mg Tab) 10 mg PO DAILY [facility] Stop: 10/22/20 09:01 Last Admin: 09/23/20 08:32 Dose: 10 mg Documented by: Calcitriol (Calcitrol 0.25 Mcg Cap) 0.5 mcg PO DAILY [facility] Stop: 10/23/20 09:01 Last Admin: 09/23/20 08:33 Dose: 0.5 mcg Documented by: Cholecalciferol (Vitamin D 5,000 Unit Cap) 5,000 unit PO DAILY [facility] Stop: 10/23/20 09:01 Last Admin: 09/23/20 08:32 Dose: 5,000 unit Documented by: Docusate Sodium (Docusate Na 100 Mg Cap) 100 mg PO BID [facility] Stop: 10/23/20 09:01 Last Admin: 09/23/20 08:33 Dose: 100 mg Documented by: Lorazepam (Lorazepam 2 Mg/Ml Vial) 0.5 mg IV Q6H PRN PRN Reason: INSOMNIA Stop: 10/23/20 19:01 Metoprolol Succinate (Metoprolol Xl 50 Mg Tab) 50 mg PO BID 6AM 6PM [facility] Stop: 10/22/20 06:01 Last Admin: 09/23/20 17:03 Dose: 50 mg Documented by: Morphine Sulfate (Morphine 2 Mg/Ml Syr) 2 mg IV Q4H PRN PRN Reason: Pain scale 5-7 (Moderate) Stop: 10/22/20 01:19 Last Admin: 09/22/20 04:26 Dose: 2 mg Documented by: Ondansetron HCl (Ondansetron 4 Mg/2 Ml Vial) 4 mg IV Q6HP PRN PRN Reason: NAUSEA / VOMITING Stop: 10/22/20 01:19 Rosuvastatin Calcium (Rosuvastatin 10 Mg Tab) 20 mg PO BEDTIME [facility] Stop: 10/22/20 21:01 Last Admin: 09/22/20 21:06 Dose: 20 mg Documented by: Sevelamer Carbonate (Sevelamer Carbonate 800 Mg Tablet) 800 mg PO TIDWM [facility] Stop: 10/23/20 08:01 Last Admin: 09/23/20 17:03 Dose: 800 mg Documented by: Sodium Chloride (Flush Normal Saline 10 Ml) 10 ml IV BID [facility] Stop: 10/22/20 09:01 Last Admin: 09/23/20 08:33 Dose: 10 ml Documented by: Tamsulosin HCl (Tamsulosin 0.4 Mg Sr Cap) 0.4 mg PO BEDTIME [facility] Stop: 10/22/20 21:01 Last Admin: 09/22/20 21:06 Dose: 0.4 mg Documented by: Vitamin B Complex/Vit C/Folic Acid (Multivitamins,Therapeut 1 Tab) 1 tab PO DAILY [facility] Stop: 10/23/20 09:01 Last Admin: 09/23/20 08:32 Dose: 1 tab Documented by: Assessment/ Plan: Nephrology CPS stable. Chest pain improving. No SOB. +POWERS +Edema No acute events overnight. Vitals, medications, blood work and imaging reviewed in the chart. NAD. MMM. Neck supple. CTA. RRR. Soft Abd. No C/C/E. No rash. AAO. Normal Speech. General: Oriented x3, Cooperative HEENT: Atraumatic Neck: Supple Respiratory: Clear to auscultation bilaterally Cardiovascular: Regular rate/rhythm, Edema Gastrointestinal: Soft and benign, Non-distended Musculoskeletal: No clubbing, No contractures Integumentary: No rashes, No cyanosis Neurological: Normal speech Laboratory Data (last 24 hrs) 09/21/20 20:45: PT 33.9 H, INR 2.93 09/21/20 20:45: WBC 13.2 H, Hgb 11.2 L, Hct 34.1 L, Plt Count 163 09/21/20 20:45: Sodium 137, Potassium 4.5, BUN 38 H, Creatinine 6.24 H*, Glucose 137 H 09/21/20 20:38: PT Cancelled, INR Cancelled 09/21/20 20:38: WBC Cancelled, Hgb Cancelled, Hct Cancelled, Plt Count Cancelled 09/21/20 20:38: Sodium Cancelled, Potassium Cancelled, BUN Cancelled, Creatinine Cancelled, Glucose Cancelled Imagings Data: EXAM DESCRIPTION: [place] Single View09/21/2020 10:13 pm CLINICAL HISTORY: Chest pain COMPARISON: none FINDINGS: Mild bilateral pulmonary opacities. The heart is mildly enlarged. IMPRESSION: Mild bilateral pulmonary opacities may indicate mild interstitial pulmonary edema Conclusions/Impression: A/ ESRD on HD HTN with CKD/ CHF Diastolic CHF, chronic AVR on anticoagulation DM II with CKD Moderate malnutrition Anemia in CKD KHALIF/ Secondary HyperPTH BPH with LUTS P/ Continue current POC and Medications. Arrange for HD on Saturday with gentle UF. Possible cardiac cath on Saturday. Start compression socks. No NSAIDs. AM labs. Daily weight. Case reviewed with Dr. Morris.
[2020-09-23] MEDS ORDERED: NA CHLORIDE 0.9% 1,000 ML IV PRN (20:16)
[2020-09-23] MEDS ORDERED: MANNITOL 25% 12.5 GM/50 ML VIAL IV PRN (20:16)
[2020-09-23] MEDS: ROSUVASTATIN 10 MG TAB PO SCH (20:34)
[2020-09-23] MEDS: TAMSULOSIN 0.4 MG SR CAP PO SCH (20:34)
[2020-09-23] MEDS: LORazepam 2 MG/ML VIAL IV PRN (20:35)
[2020-09-23] MEDS ORDERED: ALBUMIN HUMAN 25% 50 ML IV SCH (21:00)
[2020-09-23] MEDS ORDERED: LORazepam 2 MG/ML VIAL IV ONE (22:39)
[2020-09-24 05:39] VITALS: BMI 29.0
[2020-09-24] MEDS: LORazepam 2 MG/ML VIAL IV PRN ×2 (06:06→17:10)
[2020-09-24] MEDS: METOPROLOL XL 50 MG TAB PO SCH ×2 (06:11→17:04)
[2020-09-24] MEDS: VITAMIN D 5,000 UNIT CAP PO SCH (07:53)
[2020-09-24] MEDS: AMLODIPINE 10 MG TAB PO SCH (07:53)
[2020-09-24] MEDS: MULTIVITAMINS,THERAPEUT 1 TAB PO SCH (07:53)
[2020-09-24] MEDS: SEVELAMER CARBONATE 800 MG TABLET PO SCH ×3 (07:53→17:04)
[2020-09-24] MEDS: DOCUSATE NA 100 MG CAP PO SCH ×2 (07:53→21:05)
[2020-09-24] MEDS: CALCITROL 0.25 MCG CAP PO SCH (07:53)
[2020-09-24] MEDS ORDERED: EPOETIN ALFA-EPBX 10,000 UNIT/ML VIAL SQ SCH (09:00)
[2020-09-24 09:30] LABS: Absolute Lymphocytes (CBC) 0.8 K/uL (0.7-4.9); Basophils % 0.9 % (0-1.3); Hematocrit 28.2 % (39.6-49.0); Lymphocytes % 7.4 % (15.3-44.8); RBC Red Blood Cell Count 3.01 M/uL (4.33-5.43)
[2020-09-24 09:31] LABS: Protime INR 3.04
[2020-09-24 09:51] LABS: Albumin 2.8 g/dL (3.4-5.0); Magnesium 2.3 mg/dL (1.8-2.4); Protein, Total 6.9 g/dL (6.4-8.2)
[2020-09-24 12:30] LABS: Blood Morphology Comment NOT SEEN (NOT SEEN); Platelet Estimate ADEQ; White Blood Cell Scan OK (OK)
--- NOTE | 2020-09-24 16:18 | P.PN ---
Subjective Date of Service: 09/24/20 Primary Care Provider: Out-of-town physician Chief Complaint: Chest pain Subjective: No new changes (No chest pain overnight/this morning, feeling well, reports slight shortness of breath, to go for dialysis today) Review of Systems 10-point ROS is otherwise unremarkable Physical Examination - Vital Signs Temperature: 97 F Blood Pressure: 139/76 Pulse: 79 Respirations: 20 Pulse Ox (%): 98 - Physical Exam General: Alert, In no apparent distress HEENT: Sclerae nonicteric Respiratory: Diminished (At bases bilaterally, otherwise clear) Cardiovascular: Regular rate/rhythm, Edema (1-2+ bilaterally to the knees) Gastrointestinal: Soft and benign, No tenderness Musculoskeletal: No tenderness Neurological: Normal speech, Normal affect Assessment & Plan Physician Review Additional Text: NSTEMI ESRD on hemodialysis Saturday Mechanical heart valve on chronic anticoagulation therapy Hypertension Hyperlipidemia Diabetes mellitus type 2-diet controlled Plan NSETMI: troponin peaked at 13, cardiology consulted - recommend cardiac cath, but INR needs to be <1.5 Warfarin held on admission, INR decreased today Can transition to heparin once becomes subtherapeutic monitor on telemetry TTE (09/22): EF 50-55%, mild anteroseptal hypokinesis. severe Pulm HTN with RV systolic pressure > 60mmHg. AoV prosthesis functioning well Anticipate cardiac catheterization on Saturday End-stage renal disease on hemodialysis Saturday: Renal diet in place, nephrology consulted - for dialysis today Mechanical heart valve on chronic anticoagulation therapy: hold warfarin, start heparin when becomes subtherapeutic, daily INR Hypertension: Continue amlodipine and metoprolol. Hyperlipidemia: Continue rosuvastatin Diabetes mellitus type 2-diet controlled: Monitor blood sugar daily labs. Dispo: anticipate hospitalization > 48hrs, will need INR < 1.5 for cardiac cath Time Spent Managing Pts Care (In Minutes): 31
--- NOTE | 2020-09-24 20:06 | P.PN ---
Date of Service: 09/24/20 Vital Signs Temp Pulse Resp BP Pulse Ox 97 F 65 20 118/74 98 09/24/20 16:18 09/24/20 17:04 09/24/20 16:18 09/24/20 17:04 09/24/20 16:18 Medications Acetaminophen (Acetaminophen 500 Mg Tab) 500 mg PO Q4HP PRN PRN Reason: TEMP > 100' F Stop: 10/22/20 01:19 Hydrocodone Bitart/Acetaminophen (Hydrocodone/Apap 7.5/325 Mg Tab) 1 tab PO Q4H PRN PRN Reason: Pain scale 8-10 (Severe) Stop: 10/22/20 01:19 Last Admin: 09/24/20 07:54 Dose: 1 tab Documented by: Amlodipine Besylate (Amlodipine 10 Mg Tab) 10 mg PO DAILY [facility] Stop: 10/22/20 09:01 Last Admin: 09/24/20 07:53 Dose: 10 mg Documented by: Calcitriol (Calcitrol 0.25 Mcg Cap) 0.5 mcg PO DAILY [facility] Stop: 10/23/20 09:01 Last Admin: 09/24/20 07:53 Dose: 0.5 mcg Documented by: Cholecalciferol (Vitamin D 5,000 Unit Cap) 5,000 unit PO DAILY [facility] Stop: 10/23/20 09:01 Last Admin: 09/24/20 07:53 Dose: 5,000 unit Documented by: Docusate Sodium (Docusate Na 100 Mg Cap) 100 mg PO BID [facility] Stop: 10/23/20 09:01 Last Admin: 09/24/20 07:53 Dose: 100 mg Documented by: Heparin Sodium (Porcine) (Heparin 1,000 Unit/Ml Vial) 6,000 unit IV EVERY HD PRN PRN Reason: AFTER EACH Stop: 10/23/20 20:17 Heparin Sodium (Porcine) (Heparin 1,000 Unit/Ml Vial) 2,000 unit IV EVERY HD PRN PRN Reason: Dialysis Sodium Chloride (Ns 1000 Ml Ivbag) 1,000 mls @ 0 mls/hr IV .Q0M PRN PRN Reason: Priming and BP support at HD Stop: 09/23/20 23:59 Albumin Human (Albumin 25%) 50 mls @ 100 mls/hr IV EVERY HD [facility] Stop: 10/23/20 21:01 Lorazepam (Lorazepam 2 Mg/Ml Vial) 0.5 mg IV Q6H PRN PRN Reason: INSOMNIA Stop: 10/23/20 19:01 Last Admin: 09/24/20 17:10 Dose: 0.5 mg Documented by: Mannitol (Mannitol 25% 12.5 Gm/50 Ml Vial) 12.5 gm IV EVERY HD PRN PRN Reason: BP SUPPORT AT HEMODIALYSIS Stop: 10/23/20 20:17 Metoprolol Succinate (Metoprolol Xl 50 Mg Tab) 50 mg PO BID 6AM 6PM [facility] Stop: 10/22/20 06:01 Last Admin: 09/24/20 17:04 Dose: 50 mg Documented by: Morphine Sulfate (Morphine 2 Mg/Ml Syr) 2 mg IV Q4H PRN PRN Reason: Pain scale 5-7 (Moderate) Stop: 10/22/20 01:19 Last Admin: 09/22/20 04:26 Dose: 2 mg Documented by: Ondansetron HCl (Ondansetron 4 Mg/2 Ml Vial) 4 mg IV Q6HP PRN PRN Reason: NAUSEA / VOMITING Stop: 10/22/20 01:19 Rosuvastatin Calcium (Rosuvastatin 10 Mg Tab) 20 mg PO BEDTIME [facility] Stop: 10/22/20 21:01 Last Admin: 09/23/20 20:34 Dose: 20 mg Documented by: Sevelamer Carbonate (Sevelamer Carbonate 800 Mg Tablet) 800 mg PO TIDWM [facility] Stop: 10/23/20 08:01 Last Admin: 09/24/20 17:04 Dose: 800 mg Documented by: Sodium Chloride (Flush Normal Saline 10 Ml) 10 ml IV BID [facility] Stop: 10/22/20 09:01 Last Admin: 09/24/20 07:55 Dose: 10 ml Documented by: Tamsulosin HCl (Tamsulosin 0.4 Mg Sr Cap) 0.4 mg PO BEDTIME [facility] Stop: 10/22/20 21:01 Last Admin: 09/23/20 20:34 Dose: 0.4 mg Documented by: Vitamin B Complex/Vit C/Folic Acid (Multivitamins,Therapeut 1 Tab) 1 tab PO DAILY [facility] Stop: 10/23/20 09:01 Last Admin: 09/24/20 07:53 Dose: 1 tab Documented by: Assessment/ Plan: Nephrology CPS stable without CP or SOB. +POWERS +Edema No acute events overnight. Vitals, medications, blood work and imaging reviewed in the chart. General: Oriented x3, Cooperative HEENT: Atraumatic Neck: Supple Respiratory: Clear to auscultation bilaterally Cardiovascular: Regular rate/rhythm, Edema Gastrointestinal: Soft and benign, Non-distended Musculoskeletal: No clubbing, No contractures Integumentary: No rashes, No cyanosis Neurological: Normal speech Laboratory Data (last 24 hrs) 09/21/20 20:45: PT 33.9 H, INR 2.93 09/21/20 20:45: WBC 13.2 H, Hgb 11.2 L, Hct 34.1 L, Plt Count 163 09/21/20 20:45: Sodium 137, Potassium 4.5, BUN 38 H, Creatinine 6.24 H*, Glucose 137 H 09/21/20 20:38: PT Cancelled, INR Cancelled 09/21/20 20:38: WBC Cancelled, Hgb Cancelled, Hct Cancelled, Plt Count Cancelled 09/21/20 20:38: Sodium Cancelled, Potassium Cancelled, BUN Cancelled, Creatinine Cancelled, Glucose Cancelled Imagings Data: EXAM DESCRIPTION: RADChest Single View09/21/2020 10:13 pm CLINICAL HISTORY: Chest pain COMPARISON: none FINDINGS: Mild bilateral pulmonary opacities. The heart is mildly enlarged. IMPRESSION: Mild bilateral pulmonary opacities may indicate mild interstitial pulmonary edema Conclusions/Impression: A/ ESRD on HD HTN with CKD/ CHF Diastolic CHF, chronic AVR on anticoagulation DM II with CKD Moderate malnutrition Anemia in CKD KHALIF/ Secondary HyperPTH BPH with LUTS P/ Continue current POC and Medications. Next HD on Saturday. Possible cardiac cath on Saturday. Recommend compression socks daily. No NSAIDs. AM labs. Daily weight.
[2020-09-24] MEDS: TAMSULOSIN 0.4 MG SR CAP PO SCH (21:05)
[2020-09-24] MEDS: ROSUVASTATIN 10 MG TAB PO SCH (21:05)
[2020-09-24] MEDS: MORPHINE 2 MG/ML SYR IV PRN (21:06)
[2020-09-25] MEDS: LORazepam 2 MG/ML VIAL IV PRN (03:16)
[2020-09-25] MEDS: METOPROLOL XL 50 MG TAB PO SCH ×2 (06:11→16:21)
[2020-09-25 06:12] LABS: Protime INR 2.3
[2020-09-25 06:57] LABS: Albumin 2.9 g/dL (3.4-5.0); Phosphorus 7.7 mg/dL (2.5-4.9); Potassium 4.6 mmol/L (3.5-5.1)
[2020-09-25] MEDS: DOCUSATE NA 100 MG CAP PO SCH ×3 (08:38→21:00)
[2020-09-25] MEDS: VITAMIN D 5,000 UNIT CAP PO SCH (08:38)
[2020-09-25] MEDS: CALCITROL 0.25 MCG CAP PO SCH (08:39)
[2020-09-25] MEDS: MULTIVITAMINS,THERAPEUT 1 TAB PO SCH (08:39)
[2020-09-25] MEDS: SEVELAMER CARBONATE 800 MG TABLET PO SCH ×3 (08:39→16:21)
[2020-09-25] MEDS: AMLODIPINE 10 MG TAB PO SCH (08:39)
--- NOTE | 2020-09-25 11:20 | P.PN ---
Date of Service: 09/25/20 Vital Signs Temp Pulse Resp BP Pulse Ox 97 F 73 18 117/59 L 96 09/25/20 08:00 09/25/20 08:39 09/25/20 08:00 09/25/20 08:39 09/25/20 08:00 Medications Acetaminophen (Acetaminophen 500 Mg Tab) 500 mg PO Q4HP PRN PRN Reason: TEMP > 100' F Stop: 10/22/20 01:19 Hydrocodone Bitart/Acetaminophen (Hydrocodone/Apap 7.5/325 Mg Tab) 1 tab PO Q4H PRN PRN Reason: Pain scale 8-10 (Severe) Stop: 10/22/20 01:19 Last Admin: 09/24/20 07:54 Dose: 1 tab Documented by: Amlodipine Besylate (Amlodipine 10 Mg Tab) 10 mg PO DAILY [facility] Stop: 10/22/20 09:01 Last Admin: 09/25/20 08:39 Dose: 10 mg Documented by: Calcitriol (Calcitrol 0.25 Mcg Cap) 0.5 mcg PO DAILY [facility] Stop: 10/23/20 09:01 Last Admin: 09/25/20 08:39 Dose: 0.5 mcg Documented by: Cholecalciferol (Vitamin D 5,000 Unit Cap) 5,000 unit PO DAILY [facility] Stop: 10/23/20 09:01 Last Admin: 09/25/20 08:38 Dose: 5,000 unit Documented by: Docusate Sodium (Docusate Na 100 Mg Cap) 100 mg PO BID [facility] Stop: 10/23/20 09:01 Last Admin: 09/25/20 08:38 Dose: 100 mg Documented by: Heparin Sodium (Porcine) (Heparin 1,000 Unit/Ml Vial) 6,000 unit IV EVERY [facility] PRN PRN Reason: AFTER EACH Stop: 10/23/20 20:17 Heparin Sodium (Porcine) (Heparin 1,000 Unit/Ml Vial) 2,000 unit IV EVERY HD PRN PRN Reason: Dialysis Sodium Chloride (Ns 1000 Ml Ivbag) 1,000 mls @ 0 mls/hr IV .Q0M PRN PRN Reason: Priming and BP support at HD Stop: 09/23/20 23:59 Albumin Human (Albumin 25%) 50 mls @ 100 mls/hr IV EVERY HD [facility] Stop: 10/23/20 21:01 Lorazepam (Lorazepam 2 Mg/Ml Vial) 0.5 mg IV Q6H PRN PRN Reason: INSOMNIA Stop: 10/23/20 19:01 Last Admin: 09/25/20 03:16 Dose: 0.5 mg Documented by: Mannitol (Mannitol 25% 12.5 Gm/50 Ml Vial) 12.5 gm IV EVERY [facility] PRN PRN Reason: BP SUPPORT AT HEMODIALYSIS Stop: 10/23/20 20:17 Metoprolol Succinate (Metoprolol Xl 50 Mg Tab) 50 mg PO BID 6AM 6PM [facility] Stop: 10/22/20 06:01 Last Admin: 09/25/20 06:11 Dose: 50 mg Documented by: Morphine Sulfate (Morphine 2 Mg/Ml Syr) 2 mg IV Q4H PRN PRN Reason: Pain scale 5-7 (Moderate) Stop: 10/22/20 01:19 Last Admin: 09/24/20 21:06 Dose: 2 mg Documented by: Ondansetron HCl (Ondansetron 4 Mg/2 Ml Vial) 4 mg IV Q6HP PRN PRN Reason: NAUSEA / VOMITING Stop: 10/22/20 01:19 Rosuvastatin Calcium (Rosuvastatin 10 Mg Tab) 20 mg PO BEDTIME [facility] Stop: 10/22/20 21:01 Last Admin: 09/24/20 21:05 Dose: 20 mg Documented by: Sevelamer Carbonate (Sevelamer Carbonate 800 Mg Tablet) 800 mg PO TIDWM [facility] Stop: 10/23/20 08:01 Last Admin: 09/25/20 08:39 Dose: 800 mg Documented by: Sodium Chloride (Flush Normal Saline 10 Ml) 10 ml IV BID [facility] Stop: 10/22/20 09:01 Last Admin: 09/25/20 08:40 Dose: 10 ml Documented by: Tamsulosin HCl (Tamsulosin 0.4 Mg Sr Cap) 0.4 mg PO BEDTIME [facility] Stop: 10/22/20 21:01 Last Admin: 09/24/20 21:05 Dose: 0.4 mg Documented by: Vitamin B Complex/Vit C/Folic Acid (Multivitamins,Therapeut 1 Tab) 1 tab PO DAILY [facility] Stop: 10/23/20 09:01 Last Admin: 09/25/20 08:39 Dose: 1 tab Documented by: Assessment/ Plan: Nephrology CPS stable without CP or SOB. +POWERS +Edema +GERD No acute events overnight. Vitals, medications, blood work and imaging reviewed in the chart. General: Oriented x3, Cooperative HEENT: Atraumatic Neck: Supple Respiratory: Clear to auscultation bilaterally Cardiovascular: Regular rate/rhythm, Edema Gastrointestinal: Soft and benign, Non-distended Musculoskeletal: No clubbing, No contractures Integumentary: No rashes, No cyanosis Neurological: Normal speech Laboratory Data (last 24 hrs) 09/21/20 20:45: PT 33.9 H, INR 2.93 09/21/20 20:45: WBC 13.2 H, Hgb 11.2 L, Hct 34.1 L, Plt Count 163 09/21/20 20:45: Sodium 137, Potassium 4.5, BUN 38 H, Creatinine 6.24 H*, Glucose 137 H 09/21/20 20:38: PT Cancelled, INR Cancelled 09/21/20 20:38: WBC Cancelled, Hgb Cancelled, Hct Cancelled, Plt Count Cancelled 09/21/20 20:38: Sodium Cancelled, Potassium Cancelled, BUN Cancelled, Creatinine Cancelled, Glucose Cancelled Imagings Data: EXAM DESCRIPTION: RADChest Single View09/21/2020 10:13 pm CLINICAL HISTORY: Chest pain COMPARISON: none FINDINGS: Mild bilateral pulmonary opacities. The heart is mildly enlarged. IMPRESSION: Mild bilateral pulmonary opacities may indicate mild interstitial pulmonary edema Conclusions/Impression: A/ ESRD on HD HTN with CKD/ CHF Diastolic CHF, chronic AVR on anticoagulation DM II with CKD Moderate malnutrition Anemia in CKD KHALIF/ Secondary HyperPTH BPH with LUTS P/ Continue current POC and Medications. Next HD on Saturday. Possible cardiac cath on Saturday. Recommend compression socks daily. Start Pepcid for GERD. Give a dose of oral bicarb. No NSAIDs. AM labs. Daily weight.
[2020-09-25] MEDS ORDERED: SODIUM BICARB 325 MG TAB PO ONE (11:30)
[2020-09-25] MEDS ORDERED: hydrOXYzine HCL 25 MG TAB PO ONE (13:07)
--- NOTE | 2020-09-25 16:13 | P.PN ---
Subjective Date of Service: 09/25/20 Primary Care Provider: Out-of-town physician Chief Complaint: Chest pain Subjective: No new changes (Reports no chest pain, breathing okay, overall feeling a little better, feels swelling has improved) Review of Systems 10-point ROS is otherwise unremarkable Physical Examination - Vital Signs Temperature: 97 F Blood Pressure: 101/57 Pulse: 70 Respirations: 18 Pulse Ox (%): 97 - Physical Exam General: Alert, In no apparent distress, Oriented x3 HEENT: Sclerae nonicteric Respiratory: Clear to auscultation bilaterally Cardiovascular: Regular rate/rhythm, Edema (Trace-1+ bilaterally) Gastrointestinal: Soft and benign, Non-distended, No tenderness Musculoskeletal: No tenderness Integumentary: No rashes Neurological: Normal speech, Normal affect Assessment & Plan Physician Review Additional Text: NSTEMI ESRD on hemodialysis Saturday Mechanical heart valve on chronic anticoagulation therapy Hypertension Hyperlipidemia Diabetes mellitus type 2-diet controlled Plan NSETMI: troponin peaked at 13, cardiology consulted - recommend cardiac cath, but INR needs to be <1.5 Warfarin held on admission, INR decreased today; discussed with Cardiology will hold off on heparin for now monitor on telemetry TTE (09/22): EF 50-55%, mild anteroseptal hypokinesis. severe Pulm HTN with RV systolic pressure > 60mmHg. AoV prosthesis functioning well For cardiac catheterization tomorrow pending and End-stage renal disease on hemodialysis Saturday: Renal diet in place, nephrology consulted Mechanical heart valve on chronic anticoagulation therapy: hold warfarin, start heparin when becomes subtherapeutic, daily INR Hypertension: Continue amlodipine and metoprolol. Hyperlipidemia: Continue rosuvastatin Diabetes mellitus type 2-diet controlled: Monitor blood sugar daily labs. Dispo: For cardiac catheterization tomorrow, will need INR < 1.5, anticipate eventual dc home Time Spent Managing Pts Care (In Minutes): 35
[2020-09-25] MEDS: MORPHINE 2 MG/ML SYR IV PRN ×2 (19:16→23:12)
[2020-09-25] MEDS: FAMOTIDINE 20 MG TAB PO SCH ×2 (19:59→21:00)
[2020-09-25] MEDS: ROSUVASTATIN 10 MG TAB PO SCH ×2 (19:59→21:00)
[2020-09-25] MEDS: TAMSULOSIN 0.4 MG SR CAP PO SCH ×2 (19:59→21:00)
[2020-09-26 04:04] LABS: Hematocrit 29.8 % (39.6-49.0); MPV 9.3 fL (7.6-11.3); RBC Red Blood Cell Count 3.13 M/uL (4.33-5.43)
[2020-09-26 04:05] LABS: Protime INR 1.95
[2020-09-26 04:22] LABS: Albumin 2.8 g/dL (3.4-5.0); Potassium 4.9 mmol/L (3.5-5.1)
[2020-09-26 04:50] LABS: Phosphorus 8.7 mg/dL (2.5-4.9)
[2020-09-26] MEDS: MORPHINE 2 MG/ML SYR IV PRN ×2 (05:57→11:07)
[2020-09-26] MEDS: METOPROLOL XL 50 MG TAB PO SCH ×2 (05:58→06:00)
[2020-09-26] MEDS ORDERED: HEPA 1000U/500MLS 2,000 UNIT/1,000 ML BAG IV ONE (07:29)
[2020-09-26] MEDS: SEVELAMER CARBONATE 800 MG TABLET PO SCH ×2 (08:00→11:13)
[2020-09-26] MEDS ORDERED: HEPARIN 5000 UNIT/ML 1 ML VIAL ONE (08:13)
[2020-09-26] MEDS ORDERED: MIDAZOLAM HCL 2 MG/2 ML INJ ONE (08:13)
[2020-09-26] MEDS ORDERED: HEPARIN 10,000 UNIT/10 ML VIAL IV ONE (08:14)
[2020-09-26] MEDS ORDERED: NITROGLYCERIN 100 MCG/ML SYR (for cath lab use only) IV ONE (08:14)
[2020-09-26] MEDS ORDERED: VERAPAMIL HCL 10 MG/4 ML VIAL IV ONE (08:14)
[2020-09-26] MEDS ORDERED: FENTANYL CITR 100 MCG/2 ML ONE (08:14)
[2020-09-26] MEDS ORDERED: ATROPINE SULF 1 MG/10 ML SYR IV ONE (08:14)
[2020-09-26] MEDS ORDERED: NITROGLYCERIN/D5W 25 MG/250 ML BTL IV ONE (08:15)
[2020-09-26] MEDS ORDERED: NA CHLORIDE 0.9% 500 ML ONE (08:15)
[2020-09-26] MEDS: MULTIVITAMINS,THERAPEUT 1 TAB PO SCH (08:30)
[2020-09-26] MEDS: AMLODIPINE 10 MG TAB PO SCH (08:30)
[2020-09-26] MEDS: DOCUSATE NA 100 MG CAP PO SCH (08:30)
[2020-09-26] MEDS: FAMOTIDINE 20 MG TAB PO SCH (08:30)
[2020-09-26] MEDS: CALCITROL 0.25 MCG CAP PO SCH (08:30)
[2020-09-26] MEDS: VITAMIN D 5,000 UNIT CAP PO SCH (08:30)
--- NOTE | 2020-09-26 10:06 | OP ---
Date of Procedure: 09/26/2020 Surgeon: SILVERIO SHAW Procedure Performed: Selective coronary angiogram. Indication: Non-ST elevation myocardial infraction. Access: Right radial artery 6-Kenyan closed with TR band. Complications: None. Bleeding: Less than 5 mL. Anesthesia: Total sedation time was 15 minutes. Description Of Procedure: After risks, benefits, and alternatives were explained, the patient agreed to procedure and signed informed consent. Accessed the right radial artery using a pediatric microp uncture kit and used fentanyl and Versed in incremental doses to achieve adequate moderate sedation. Then, we inserted a 6-Kenyan slender sheath and we took a 5-Kenyan Amanda catheter into the aortic ro ot, engaged the left main coronary artery and took standard views and then right coronary artery took standard views and then removed the catheter and the sheath and placed TR band with good hemostasis. Findings: 1.Left main is a large vessel with severe distal stenosis likely due to plaque rupture with some thr ombosis and severe result of stenosis, but NEIL-3 flow in the vessels after the stenosis. 2.LAD, ostial severe stenosis and then mid has 2 tandem lesions, 56% with NEIL-3 flow in the vessel. 3.Left circumflex, severe ostial stenosis as well as severe high OM ostial stenosis and extension fr om the distal left main plaque rupture and thrombosis. 4.RCA is large dominant with diffuse 30% proximal, 90% distal stenosis. Impression: Severe distal left main disease with plaque rupture and thrombus formation with extensio n of the stenosis to the ostial LAD, ostial left circumflex and the high OM, NEIL-3 flow in all vesse ls and also severe RCA stenosis distally. Plan: 1.Transfer to higher level of care facility for CABG evaluation. 2.Start on IV heparin. SR/MODL Voice ID: [id number] Report ID: [id number]
[2020-09-26 10:31] VITALS: O2SAT 100
[2020-09-26] MEDS ORDERED: NA CHLORIDE 0.9% 0 ML IV ONE (10:39)
[2020-09-26] MEDS ORDERED: FAMOTIDINE 20 MG/2 ML VIAL IV ONE (11:30)
[2020-09-26] MEDS ORDERED: HEPARIN/D5W 25,000 UNIT/500 ML BAG IV PRN (13:00)
[2020-09-26 14:07] VITALS: BP 124/71; TEMP 96.6
[2020-09-26] MEDS ORDERED: HEPARIN 5000 UNIT/ML 1 ML VIAL IV SCH (15:00)
--- NOTE | 2020-09-26 21:10 | P.PN ---
Date of Service: 09/26/20 Vital Signs Temp Pulse Resp BP Pulse Ox 96.6 F L 80 20 124/71 98 09/26/20 12:00 09/26/20 12:00 09/26/20 12:00 09/26/20 12:00 09/26/20 12:00 Assessment/ Plan: Nephrology CPS stable without CP or SOB. No acute events overnight. Cardiac cath this morning with significant CAD. Case reviewed with Dr. Parekh. Vitals, medications, blood work and imaging reviewed in the chart. General: Oriented x3, Cooperative HEENT: Atraumatic Neck: Supple Respiratory: Clear to auscultation bilaterally Cardiovascular: Regular rate/rhythm, Edema Gastrointestinal: Soft and benign, Non-distended Musculoskeletal: No clubbing, No contractures Integumentary: No rashes, No cyanosis Neurological: Normal speech Laboratory Data (last 24 hrs) 09/21/20 20:45: PT 33.9 H, INR 2.93 09/21/20 20:45: WBC 13.2 H, Hgb 11.2 L, Hct 34.1 L, Plt Count 163 09/21/20 20:45: Sodium 137, Potassium 4.5, BUN 38 H, Creatinine 6.24 H*, Glucose 137 H 09/21/20 20:38: PT Cancelled, INR Cancelled 09/21/20 20:38: WBC Cancelled, Hgb Cancelled, Hct Cancelled, Plt Count Cancelled 09/21/20 20:38: Sodium Cancelled, Potassium Cancelled, BUN Cancelled, Creatinine Cancelled, Glucose Cancelled Imagings Data: EXAM DESCRIPTION: RADChest Single View09/21/2020 10:13 pm CLINICAL HISTORY: Chest pain COMPARISON: none FINDINGS: Mild bilateral pulmonary opacities. The heart is mildly enlarged. IMPRESSION: Mild bilateral pulmonary opacities may indicate mild interstitial pulmonary edema Conclusions/Impression: A/ ESRD on HD HTN with CKD/ CHF Diastolic CHF, chronic AVR on anticoagulation DM II with CKD Moderate malnutrition Anemia in CKD KHALIF/ Secondary HyperPTH BPH with LUTS P/ Continue current POC and Medications. Transfer geno for severe CAD requiring CABG. Hold dialysis at this time. Recommend compression socks daily. No NSAIDs. AM labs. Daily weight.
--- NOTE | 2020-09-28 12:52 | P.DS ---
Admission Date: 09/21/20 Discharge Date: 09/26/20 Primary Care Provider: Out-of-town physician Disposition: TRANSFER TO [facility] Discharge Condition: FAIR Reason for Admission: Chest pain Consultations: Cardiology - Dr. Parekh Nephrology - Dr. Solano Procedures: CXR (09/21): mild bilateral pulmonary opacities may indicate mild interstitial pulmonary edema TTE (09/23): EF: 50-55%, mild anteroseptal hypokinesis. Severe Pulm HTN, RVSP > 60mmHg, RAP >20 mmHg. AoV prosthesis function well with DVI: 0.51 Cardiac Cath (09/26) by Dr. 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 1. Left main is a large vessel with severe distal stenosis likely due to plaque rupture with some thrombosis and severe result of stenosis, but NEIL-3 flow in the vessels after the stenosis. 2. LAD, ostial severe stenosis and then mid has 2 tandem lesions, 56% with NEIL-3 flow in the vessel. 3. Left circumflex, severe ostial stenosis as well as severe high OM ostial s tenosis and extension from the distal left main plaque rupture and thrombosis. 4. RCA is large dominant with diffuse 30% proximal, 90% distal stenosis. Problem List NSTEMI ESRD on HD - (M-W-F) Mechanical heart valve on chronic anticoagulation therapy Hypertension Hyperlipidemia Diabetes mellitus type 2-diet controlled Brief History of Present Illness: 75yo M, PMH: ESRD on HD, HTN, DM2, presented to ED due to chest pain after dialysis. Pain is described as squeezing, at anterior chest wall without radiation, with associated SOB. He reports recent normal outpatient stress test ~2 weeks ago. Initial troponin: 0.3, EKG with mild ST depressions in lateral leads. He was admitted for further evaluation. Hospital Course: Patient continued with intermittent chest pain, troponin peaked to 13.4, and Cardiology was consulted. Patient's INR was noted to be ~3, his Coumadin was held, and he was taken to cardiac cath as soon as his INR < 2.0 (on 09/26). He was found to have severe multi-vessel disease with NEIL-3 flow. Patient was transitioned to heparin drip after cardiac cath and was transferred to tertiary care center for CABG. Vital Signs/Physical Exam: Temp Pulse Resp BP Pulse Ox 96.6 F L 80 20 124/71 98 09/26/20 12:00 09/26/20 12:00 09/26/20 12:00 09/26/20 12:00 09/26/20 12:00 General: Alert, In no apparent distress, Oriented x3 HEENT: Sclerae nonicteric Respiratory: Clear to auscultation bilaterally, Diminished (at bases bilaterally), Other (on 3L NC) Cardiovascular: Regular rate/rhythm, Edema (1+ bilateral lower extremities) Gastrointestinal: Soft and benign, Non-distended, No tenderness Integumentary: No tenderness/swelling, No erythema Neurological: Normal speech, Normal affect (somewhat anxious) Laboratory Data at Discharge: WBC 11.2 K/uL (4.3-10.9) H 09/26/20 03:46 Hgb 9.6 g/dL (13.6-17.9) L 09/26/20 03:46 Hct 29.8 % (39.6-49.0) L 09/26/20 03:46 Plt Count 164 K/uL (152-406) 09/26/20 03:46 PT 22.7 SECONDS (9.5-12.5) H 09/26/20 03:46 INR 1.95 09/26/20 03:46 APTT Cancelled 09/26/20 21:00 Sodium 139 mmol/L (136-145) 09/26/20 03:46 Potassium 4.9 mmol/L (3.5-5.1) 09/26/20 03:46 BUN 69 mg/dL (7-18) H 09/26/20 03:46 Creatinine 10.10 mg/dL (0.55-1.3) H* D 09/26/20 03:46 Glucose 109 mg/dL (74-106) H 09/26/20 03:46 Phosphorus 8.7 mg/dL (2.5-4.9) H* 09/26/20 03:46 Magnesium 2.3 mg/dL (1.8-2.4) 09/24/20 09:17 Total Bilirubin 1.0 mg/dL (0.2-1.0) 09/24/20 09:17 AST 27 U/L (15-37) 09/24/20 09:17 ALT 27 U/L (12-78) 09/24/20 09:17 Alkaline Phosphatase 61 U/L (45-117) 09/24/20 09:17 Troponin I 9.74 ng/mL (0.0-0.045) H* D 09/23/20 02:22 Triglycerides 143 mg/dL (<150) 09/22/20 04:08 Cholesterol 111 mg/dL (<200) 09/22/20 04:08 HDL Cholesterol 27 mg/dL (40-60) L 09/22/20 04:08 Cholesterol/HDL Ratio 4.11 09/22/20 04:08 Home Medications: Amlodipine [Norvasc*] 10 mg PO DAILY 07/29/20 Lidocaine/Prilocaine [Lidocaine-Prilocaine Cream] 1 appl TOP M,W,F PRN 07/29/20 Metoprolol Tartrate 50 mg PO BID 07/29/20 Rosuvastatin [Crestor*] 20 mg PO BEDTIME 07/29/20 Tamsulosin HCl [Flomax] 0.4 mg PO DAILY 07/29/20 Warfarin Sodium 5 mg PO DAILY 07/29/20 Hydrocodone Bit/Acetaminophen [Hydrocodon-Acetaminoph 2.5-325] 2.5 - 325 mg PO DAILY 09/22/20 Diet: AHA Activity: Ad abena Followup: NONE,NONE [Primary Care Provider] - Time spent managing pt's care (in minutes): 40
--- NOTE | 2020-10-31 13:28 | CON ---
Date of Consultation: 09/22/2020 Reason For Consultation: [id number] myocardial infarction. History Of Present Illness: A 75-year-old male; history of end-stage renal disease, on hemodialysis; dyslipidemia; mechanical aortic valve, on warfarin; diabetes; hypertension; presented with acute ons et of chest pain, retrosternal, not related to exertion. Troponin was elevated, was consulted due to that reason. The patient is on warfarin and INR was above 3. Upon evaluation in the emergency room , there was no bleeding history. Past Medical History: As outlined above in HPI. Medication: Refer to reconciliation sheet for detailed list. Past Surgical History: Aortic valve replacement 2 years ago. Family History: No premature coronary artery disease or cancer. Social History: Does not smoke or drink. Does not use any drugs. Review of Systems: All systems reviewed and they were negative except what mentioned in the HPI. Physical Examination: Vital signs: Reviewed and are stable. Head and Neck: Pupils are equal, reactive to light. Intact eye movements. No JVD. No cervical lym phadenopathy. Neck: Supple. Thyroid is not enlarged. Lungs: Clear to auscultation bilaterally. No rhonchi, rales, or crackles. No accessory muscle use. Heart: Regular rate and rhythm. No extra sounds. Abdomen: Soft, nontender. Bowel sounds positive. No organomegaly. No masses or hernia. No rigidi ty or rebound. Extremities: No edema, clubbing, cyanosis, intact pulses. Skin: No rashes. Neurologic: Alert, awake, oriented x3. No acute focal deficits appreciated. Investigations: Troponin peaked at 11.5 and trending down. Creatinine is 6.7. INR on arrival was 2 .9. Assessment/plan: [id number] myocardial infarction. Recommend coronary angiogram; however, the patient's INR is supratherapeutic. We will wait until INR drops below 2 and plan for coronary angio gram. Meanwhile, start on aspirin, nitroglycerin for chest pain. We will consider taking the patien t emergently to the [facility] if he becomes unstable or if he continues to have unstable chest pain or if there are any dynamic EKG changes. SR/MODL Voice ID: [id number] Report ID: [id number]
== END 2020-09-26 16:29 | disposition short-term general hospital (02) | DRG 280 ==
LOC: ER 20:00 → ERHOLD 23:45 → 2ND 09-22 14:04 → OBSVTOIN 09-22 14:14
PROVIDERS: ADMIT Family Medicine; ATTEND Hospitalist
PROC: 5A1D70Z Performance of Urinary Filtration, Intermittent, Less than 6 Hours Per Day (ICD-10-PCS; 2020-09-24)
PROC: 4A023N7 Measurement of Cardiac Sampling and Pressure, Left Heart, Percutaneous Approach (ICD-10-PCS; principal; 2020-09-26)
PROC: B2111ZZ Fluoroscopy of Multiple Coronary Arteries using Low Osmolar Contrast (ICD-10-PCS; 2020-09-26)
DX: I21.4 Non-ST elevation (NSTEMI) myocardial infarction (principal); N18.6 End stage renal disease; I50.32 Chronic diastolic (congestive) heart failure; I13.2 Hypertensive heart and chronic kidney disease with heart failure and with stage 5 chronic kidney disease, or end stage renal disease; E44.0 Moderate protein-calorie malnutrition; N25.81 Secondary hyperparathyroidism of renal origin; N25.0 Renal osteodystrophy; N40.1 Benign prostatic hyperplasia with lower urinary tract symptoms; D63.1 Anemia in chronic kidney disease; I27.29 Other secondary pulmonary hypertension; E11.22 Type 2 diabetes mellitus with diabetic chronic kidney disease; E78.5 Hyperlipidemia, unspecified; Z68.29 Body mass index [BMI] 29.0-29.9, adult; Z79.01 Long term (current) use of anticoagulants; Z79.899 Other long term (current) drug therapy; Z99.2 Dependence on renal dialysis; Z95.4 Presence of other heart-valve replacement; Z20.828 Contact with and (suspected) exposure to other viral communicable diseases
CPT/HCPCS: 36415; 71045; 80048; 80053; 80061; 80069; 83735; 83880; 84439; 84443; 84484; 85025; 85027; 85610; 85730; 90935; 93005; 93306; 93454; 96374; 96375; 99285; C1893; J1644; J2250; J2270; J3010; J7040; Q5106; U0003

== ENCOUNTER 2020-11-16 16:16 | Emergency (ER) | payer OTHER ==
--- OUTSIDE RECORDS SUMMARY | 2020-11-16 16:19 | XMS REPORT | Clinical Summary ---
:1945 Author Organization [facility] Address [address] [place] [address] Care Team Providers Name Role Phone Arnol [...] Health Maintenance Due Date Last Done Comments COVID-19 VACCINE (1 of 2) 1960 COLONOSCOPY SCREENING 1994 SHINGLES VACCINES (#1) 1994 65+ PNEUMOCOCCAL VACCINE (1 of 1 - PPSV23) 2009 INFLUENZA VACCINE 05/14/2020 Results Not on fileafter 11/16/2019 Insurance Payer Benefit Plan / Subscriber ID Effective Dates Phone Addre ss Type Group HUMANA MEDICARE HUMANA MEDICARE [id number] 2014-Present PPO PPO/PFFS/ERS MCR NavidpedritoJohn Paul franks Transplant Self 1945 [address] (Home) [place] [id number] Advance Directives For more information, please contact: [phone] Type Date Recorded Patient Diabetes Physician Explanati on Advance Directives, Living Will and Medical Power of Enforcement Manager
--- OUTSIDE RECORDS SUMMARY | 2020-11-16 16:21 | XMS REPORT | Clinical Summary ---
:[address] [facility] Address [address] [place] [address] Care Team Providers Name Role Phone Pcp, Primary Care Provider Unavailable Allergies No Known Allergies Medications Medication Sig Dispensed Refills Start Date End Date Status warfarin (COUMADIN, Take 1 tablet (2 30 tablet 0 10/10/2020 Active JANTOVEN) 2 MG tablet mg total) by mouth daily. Additional Information Patient taking differently: 1 mg Oral Daily, Reason: Changed by Provider, Reported on 10/25/2020 12:50 PM rosuvastatin (CRESTOR) 20 MG Take 1 tablet (20 mg 30 tablet 0 10/11/2020 Active tablet total) by mouth daily. tamsulosin (FLOMAX) 0.4 mg Take 1 capsule (0.4 mg 30 capsule 0 10/11/2020 Active Cap 24 hr capsule total) by mouth daily. amiodarone (PACERONE) 400 MG Take 1 tablet (400 mg 60 tablet 0 10/10/2020 Active tablet total) by mouth 2 (two) times daily. aspirin 81 MG EC tablet Take 1 tablet (81 mg 30 tablet 0 10/11 Active total) by mouth daily. cinacalcet (SENSIPAR) 30 MG Take 1 tablet (30 mg 30 tablet 0 1 12/12/2019 Active tablet total) by mouth daily with breakfast. Additional Information Patient not taking. Reason: Not Available, Reported on 10/25/2020 12:50 PM HYDROcodone-acetaminophen Take 1 tablet 20 tablet 0 10/10/2020 Active (NORCO 5-325) 5-325 mg per by mouth every tablet 8 (eight) hours as needed. Max Daily Amount: 3 tablets lidocaine (LIDODERM) 5 % Place 2 patches 60 patch 0 0 Active patch onto the skin daily Remove & Discard patch within 12 hours or as directed by . senna-docusate (SENOKOT S) Take 1 tablet 60 tablet 0 0 12/ Active 8.6-50 mg per tablet by mouth 2 28/ (two) times 202 daily as needed 1 for Constipation. sevelamer (RENVELA) 800 mg Take 1 tablet 90 tablet 0 0 Active tablet (800 mg total) by mouth 3 (three) times daily with meals. melatonin 5 mg Tab tablet Take 1 tablet 30 tablet 0 10/10/2020 Active (5 mg total) by mouth every night as needed. acetaminophen-codeine 0 11/26/2018/ Discontinued (TYLENOL #3) 300-30 mg per / (Stop Taking at tablet 202 Discharge) 0 amLODIPine (NORVASC) 10 MG 0 12/15/2018 12 / Discontinued tablet 28/ (Stop Taki ng at 202 Discharge) 0 gabapentin (NEURONTIN) 100 MG 0 11/26/2018/ Discontinued capsule 0 metoprolol (LOPRESSOR) 50 MG 2 (two) times 0 019 12/ Discontinued tablet daily. 28/ (Stop Taki ng at 202 Discharge) 0 rosuvastatin (CRESTOR) 20 MG 0 11/26/2018/ Discontinued tablet 28/ (Stop Taki ng at 202 Discharge) 0 tamsulosin (FLOMAX) 0.4 mg 0 11/26/2018 12 / Discontinued Cap 24 hr capsule 28/ (S top Taking at 202 Discharge) 0 warfarin (COUMADIN) 2 MG 0 11/27/2018/ Discontinued tablet 28/ (Reorder) 202 0 aspirin 81 MG EC tablet Take 81 mg by 0 12 / Discontinued mouth daily. 0 amLODIPine (NORVASC) 5 MG Take 1 tablet 60 tablet 0 10/10/2020 01/ tablet (5 mg total) by 27/ mouth 2 (two) 202 times daily for 1 30 days. metoprolol tartrate Take 0.5 30 tablet 0 10/10/2020 01/ (LOPRESSOR) 25 MG tablet tablets (12.5 2 7/ mg total) by 202 mouth 2 (two) 1 times daily for 30 days. benzonatate (TESSALON) 100 MG Take 1 capsule 20 capsule 0 09/14 01/ capsule (100 mg total) 04/ by mouth 3 202 (three) times 1 daily as needed for Cough for up to 7 days. bisacodyL (DULCOLAX) 5 mg EC Take 1 tablet 30 tablet 0 020 01/ tablet (5 mg total) by 27/ mouth daily as 202 needed for 1 Constipation for up to 30 days. Active Problems Problem Noted Date s/p ACB x4 by Dr Shetty on 09/27/2020 09/26/2020 Essential hypertension 09/26/2020 Overview: Data migrated from [employer] on 03/12/15. Data migrated from [employer] on 03/12. End-stage renal disease 09/26/2020 S/P AVR 12/04/2018 Nonrheumatic aortic (valve) stenosis 10/02/2018 BPH (benign prostatic hyperplasia) 10/25/2014 Type 2 diabetes mellitus 01/05/2014 Overview: Data migrated from [employer] on 03/12. 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 , unspecified ves vane or lesion type (HCC) (Primary Dx) 09/27/2020 Surgery Shyam Shetty BYPASS,AORTO MD Guillermina CORONARY LUCAS/SV G 09/27/2020 Anesthesia Event Mehul Otero MD Anton, James Michael, MD 09/27/2020 Surgery Sarath Arias IABP INSERT ION CB Pimentel MD - IP PROC ONLY* * 09/26/2020 - Hospital Encounter Cardiology Suzette Soares Mckeon ry artery 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 ([facility]); 10/10/2020 MD Yefri Essential hypertension; Rosalio, ESRD on hemo dialysis ([facility]); MD Carlito Type 2 diabetes mellitus with chronic ki dney disease on chronic dialysis, without long-term current use of insulin ([facility]); Humera Hurtado hype rlipidemia; MD Talia End-stage renal disease (HCC); Josef aY Nonrheumatic aortic (valve) stenosis; MD Mandie S/P AVR; Tish Woo Impaired mo bility and ADLs; MD Bill Worsening functional endurance Kumar Valdez MD Tirukkovalluri, Srilakshmi, MD 09/26/2020 Orders Only General Internal Medicine 09/26/2020 Travel after 11/16/2019 Family History Medical History Relation Name Comments Heart failure Father Stomach cancer Father Stroke Mother Relation Name Status Comments Father Mother Social History Tobacco Use Types Packs/Day Years [...] Not on file Last Filed Vital Signs Vital Sign Reading Time Taken Comments Blood Pressure 124/58 10/25/2020 12:46 PM MOBILE HEAVY EQUIPMENT OPERATOR Pulse 54 10/25/2020 12:46 PM MOBILE HEAVY EQUIPMENT OPERATOR Temperature 35.9 C (96.7 F) 10/25/2020 12:46 PM MOBILE HEAVY EQUIPMENT OPERATOR Respiratory Rate 14 10/25/2020 12:46 PM MOBILE HEAVY EQUIPMENT OPERATOR Oxygen Saturation 97% 10/25/2020 12:46 PM MOBILE HEAVY EQUIPMENT OPERATOR Inhaled Oxygen Concentration 40% 09/29/2020 5:30 PM MOBILE HEAVY EQUIPMENT OPERATOR Weight 101.6 kg (224 lb) 10/25/2020 12:46 PM MOBILE HEAVY EQUIPMENT OPERATOR Height 185.4 cm (6' 1") 10/25/2020 12:46 PM MOBILE HEAVY EQUIPMENT OPERATOR Body Mass Index 29.55 10/25/2020 12:46 PM MOBILE HEAVY EQUIPMENT OPERATOR Plan of Treatment Health Maintenance Due Date Last Done Comments DTAP/TDAP/TD VACCINES (1 - Tdap) 1952 DIABETIC EYE EXAM 1954 DIABETIC FOOT EXAM 1954 URINE MICROALBUMIN 1954 HEPATITIS C SCREENING 1962 MEDICARE ANNUAL WELLNESS (YEAR 2 or FIRST 08/15/2010 YEAR if no IPPE) INFLUENZA VACCINE (#1) 2020 DEPRESSION SCREENING (12+) 10/14/2020 HEMOGLOBIN A1C 03/28/2021 09/27/2020 PNEUMOCOCCAL 65+ YRS Completed 11/09/2014, 09/12/2010 Implants Implanted Type Area Fundraising Consultant Device Identifier Shelf Model / Expiration Serial / Date Lot Material Bone Hemostasis 2.5g [id number] - [id number] IMPLANTS Sternum [employer] [id number] 12/11/2024 [id number] / Implanted: Qty: 2 on 09/27/2020 by Shyam Lockhart MD at [facility] / [id number] W Procedures Procedure Name Priority Date/Time Associated Comments Diagnosis CBC W/PLT COUNT & AUTO Routine 10/10/2020 4:21 R esults for DIFFERENTIAL PM MOBILE HEAVY EQUIPMENT OPERATOR this procedure are in the results section. PROTHROMBIN TIME/INR STAT 10/10/2020 4:21 Res ults for PM MOBILE HEAVY EQUIPMENT OPERATOR this procedure are in the results section. BASIC METABOLIC PANEL (7) Routine 10/10/2020 4:21 Results for PM MOBILE HEAVY EQUIPMENT OPERATOR this procedure are in the results section. CBC W/PLT COUNT & AUTO Routine 10/10/2020 4:21 R esults for DIFFERENTIAL PM MOBILE HEAVY EQUIPMENT OPERATOR this procedure are in the results section. HEMODIALYSIS INPATIENT Routine 10/10/2020 12:01 R esults for PM MOBILE HEAVY EQUIPMENT OPERATOR this procedure are in the results section. PROTHROMBIN TIME/INR Routine 10/08/2020 4:06 Res ults for PM MOBILE HEAVY EQUIPMENT OPERATOR this procedure are in the results section. POCT-GLUCOSE METER Routine 10/07/2020 10:28 Resul ts for AM MOBILE HEAVY EQUIPMENT OPERATOR this procedure are in the results section. HEMODIALYSIS INPATIENT Routine 10/07/2020 9:12 AM MOBILE HEAVY EQUIPMENT OPERATOR MAGNESIUM Routine 10/07/2020 5:20 Results for AM MOBILE HEAVY EQUIPMENT OPERATOR this procedure are in the results section. BASIC METABOLIC PANEL (7) Routine 10/07/2020 5:20 Results for AM MOBILE HEAVY EQUIPMENT OPERATOR this procedure are in the results section. PROTHROMBIN TIME/INR Routine 10/07/2020 5:20 Res ults for AM MOBILE HEAVY EQUIPMENT OPERATOR this procedure are in the results section. CBC (HEMOGRAM ONLY) Routine 10/07/2020 5:20 Resu lts for AM MOBILE HEAVY EQUIPMENT OPERATOR this procedure are in the results section. APTT Routine 10/06/2020 6:55 Results for AM MOBILE HEAVY EQUIPMENT OPERATOR this procedure are in the results section. PROTHROMBIN TIME/INR Routine 10/06/2020 6:55 Res ults for AM MOBILE HEAVY EQUIPMENT OPERATOR this procedure are in the results section. CBC (HEMOGRAM ONLY) Routine 10/06/2020 6:55 Resu lts for AM MOBILE HEAVY EQUIPMENT OPERATOR this procedure are in the results section. PHOSPHORUS Routine 10/06/2020 6:55 Results for AM MOBILE HEAVY EQUIPMENT OPERATOR this procedure are in the results section. MAGNESIUM Routine 10/06/2020 6:55 Results for AM MOBILE HEAVY EQUIPMENT OPERATOR this procedure are in the results section. BASIC METABOLIC PANEL (7) Routine 10/06/2020 6:55 Results for AM MOBILE HEAVY EQUIPMENT OPERATOR this procedure are in the results section. APTT Routine 10/06/2020 12:10 Results for AM MOBILE HEAVY EQUIPMENT OPERATOR this procedure are in the results section. SARS-COV2/RT-PCR ([facility] & STAT 10/05/2020 9:57 Results for REF LABS) PM MOBILE HEAVY EQUIPMENT OPERATOR this procedure are in the results section. POCT-GLUCOSE METER Routine 10/05/2020 5:38 Resul ts for PM MOBILE HEAVY EQUIPMENT OPERATOR this procedure are in the results section. HEMODIALYSIS INPATIENT Routine 10/05/2020 3:03 PM MOBILE HEAVY EQUIPMENT OPERATOR APTT Routine 10/05/2020 5:02 Results for AM MOBILE HEAVY EQUIPMENT OPERATOR this procedure are in the results section. PROTHROMBIN TIME/INR Routine 10/05/2020 5:02 Res ults for AM MOBILE HEAVY EQUIPMENT OPERATOR this procedure are in the results section. CBC (HEMOGRAM ONLY) Routine 10/05/2020 5:02 Resu lts for AM MOBILE HEAVY EQUIPMENT OPERATOR this procedure are in the results section. PTH, INTACT Routine 10/05/2020 5:02 Results for AM MOBILE HEAVY EQUIPMENT OPERATOR this procedure are in the results section. FERRITIN Routine 10/05/2020 5:02 Results for AM MOBILE HEAVY EQUIPMENT OPERATOR this procedure are in the results section. IRON, TIBC, % SAT. Routine 10/05/2020 5:02 Resul ts for (WITHOUT FERRITIN) AM MOBILE HEAVY EQUIPMENT OPERATOR this proc edure are in the results section. PHOSPHORUS Routine 10/05/2020 5:02 Results for AM MOBILE HEAVY EQUIPMENT OPERATOR this procedure are in the results section. MAGNESIUM Routine 10/05/2020 5:02 Results for AM MOBILE HEAVY EQUIPMENT OPERATOR this procedure are in the results section. BASIC METABOLIC PANEL (7) Routine 10/05/2020 5:02 Results for AM MOBILE HEAVY EQUIPMENT OPERATOR this procedure are in the results section. OXYGEN SATURATION, STAT 10/05/2020 4:43 Resul ts for MEASURED AM MOBILE HEAVY EQUIPMENT OPERATOR this procedure are in the results section. APTT Routine 10/04/2020 8:50 Results for PM MOBILE HEAVY EQUIPMENT OPERATOR this procedure are in the results section. OXYGEN SATURATION, STAT 10/04/2020 8:50 Resul ts for MEASURED PM MOBILE HEAVY EQUIPMENT OPERATOR this procedure are in the results section. POCT-GLUCOSE METER Routine 10/04/2020 6:16 Resul ts for PM MOBILE HEAVY EQUIPMENT OPERATOR this procedure are in the results section. APTT Routine 10/04/2020 12:27 Results for PM MOBILE HEAVY EQUIPMENT OPERATOR this procedure are in the results section. OXYGEN SATURATION, STAT 10/04/2020 12:27 Resul ts for MEASURED PM MOBILE HEAVY EQUIPMENT OPERATOR this procedure are in the results section. POCT-GLUCOSE METER Routine 10/04/2020 12:11 Resul ts for PM MOBILE HEAVY EQUIPMENT OPERATOR this procedure are in the results section. OXYGEN SATURATION, STAT 10/04/2020 5:30 Resul ts for MEASURED AM MOBILE HEAVY EQUIPMENT OPERATOR this procedure are in the results section. APTT Routine 10/04/2020 3:16 Results for AM MOBILE HEAVY EQUIPMENT OPERATOR this procedure are in the results section. PROTHROMBIN TIME/INR Routine 10/04/2020 3:16 Res ults for AM MOBILE HEAVY EQUIPMENT OPERATOR this procedure are in the results section. CBC (HEMOGRAM ONLY) Routine 10/04/2020 3:16 Resu lts for AM MOBILE HEAVY EQUIPMENT OPERATOR this procedure are in the results section. PHOSPHORUS Routine 10/04/2020 3:16 Results for AM MOBILE HEAVY EQUIPMENT OPERATOR this procedure are in the results section. MAGNESIUM Routine 10/04/2020 3:16 Results for AM MOBILE HEAVY EQUIPMENT OPERATOR this procedure are in the results section. BASIC METABOLIC PANEL (7) Routine 10/04/2020 3:16 Results for AM MOBILE HEAVY EQUIPMENT OPERATOR this procedure are in the results section. OXYGEN SATURATION, STAT 10/04/2020 3:16 Resul ts for MEASURED AM MOBILE HEAVY EQUIPMENT OPERATOR this procedure are in the results section. HEMODIALYSIS INPATIENT Routine 10/04/2020 12:10 R esults for AM MOBILE HEAVY EQUIPMENT OPERATOR this procedure are in the results section. APTT Routine 10/03/2020 8:15 Results for PM MOBILE HEAVY EQUIPMENT OPERATOR this procedure are in the results section. POCT-GLUCOSE METER Routine 10/03/2020 5:34 Resul ts for PM MOBILE HEAVY EQUIPMENT OPERATOR this procedure are in the results section. 2D ECHO W/ DOPPLER STAT 10/03/2020 12:56 Resul ts for (CW/PW/COLOR) PM MOBILE HEAVY EQUIPMENT OPERATOR this procedure are in the results section. APTT Routine 10/03/2020 11:50 Results for AM MOBILE HEAVY EQUIPMENT OPERATOR this procedure are in the results section. PLATELET COUNT Routine 10/03/2020 11:50 Results f or AM MOBILE HEAVY EQUIPMENT OPERATOR this procedure are in the results section. OXYGEN SATURATION, STAT 10/03/2020 11:50 Resul ts for MEASURED AM MOBILE HEAVY EQUIPMENT OPERATOR this procedure are in the results section. POCT-GLUCOSE METER Routine 10/03/2020 11:14 Resul ts for AM MOBILE HEAVY EQUIPMENT OPERATOR this procedure are in the results section. XR CHEST 1 VIEW Routine 10/03/2020 7:35 Results for PORTABLE/BEDSIDE AM MOBILE HEAVY EQUIPMENT OPERATOR this proced ure are in the results section. PHOSPHORUS Routine 10/03/2020 4:36 Results for AM MOBILE HEAVY EQUIPMENT OPERATOR this procedure are in the results section. MAGNESIUM Routine 10/03/2020 4:36 Results for AM MOBILE HEAVY EQUIPMENT OPERATOR this procedure are in the results section. CBC (HEMOGRAM ONLY) Routine 10/03/2020 4:36 Resu lts for AM MOBILE HEAVY EQUIPMENT OPERATOR this procedure are in the results section. BASIC METABOLIC PANEL (7) Routine 10/03/2020 4:36 Results for AM MOBILE HEAVY EQUIPMENT OPERATOR this procedure are in the results section. POCT-GLUCOSE METER Routine 10/02/2020 5:04 Resul ts for PM MOBILE HEAVY EQUIPMENT OPERATOR this procedure are in the results section. POCT-GLUCOSE METER Routine 10/02/2020 11:36 Resul ts for AM MOBILE HEAVY EQUIPMENT OPERATOR this procedure are in the results section. POCT-GLUCOSE METER Routine 10/02/2020 8:11 Resul ts for AM MOBILE HEAVY EQUIPMENT OPERATOR this procedure are in the results section. CALCIUM, IONIZED Routine 10/02/2020 4:43 Results for AM MOBILE HEAVY EQUIPMENT OPERATOR this procedure are in the results section. PH, ARTERIAL Routine 10/02/2020 4:42 Results for AM MOBILE HEAVY EQUIPMENT OPERATOR this procedure are in the results section. BASIC METABOLIC PANEL (7) Routine 10/02/2020 4:41 Results for AM MOBILE HEAVY EQUIPMENT OPERATOR this procedure are in the results section. PT/APTT Routine 10/02/2020 4:41 Results for AM MOBILE HEAVY EQUIPMENT OPERATOR this procedure are in the results section. PHOSPHORUS Routine 10/02/2020 4:41 Results for AM MOBILE HEAVY EQUIPMENT OPERATOR this procedure are in the results section. MAGNESIUM Routine 10/02/2020 4:41 Results for AM MOBILE HEAVY EQUIPMENT OPERATOR this procedure are in the results section. CBC (HEMOGRAM ONLY) Routine 10/02/2020 4:41 Resu lts for AM MOBILE HEAVY EQUIPMENT OPERATOR this procedure are in the results section. CALCIUM, IONIZED Routine 10/02/2020 12:44 Results for AM MOBILE HEAVY EQUIPMENT OPERATOR this procedure are in the results section. BASIC METABOLIC PANEL (7) Routine 10/02/2020 12:44 Results for AM MOBILE HEAVY EQUIPMENT OPERATOR this procedure are in the results section. XR CHEST 1 VIEW Routine 10/02/2020 12:42 Results for PORTABLE/BEDSIDE AM MOBILE HEAVY EQUIPMENT OPERATOR this proced ure are in the results section. PHOSPHORUS Routine 10/01/2020 6:05 Results for PM MOBILE HEAVY EQUIPMENT OPERATOR this procedure are in the results section. PH, ARTERIAL Routine 10/01/2020 6:05 Results for PM MOBILE HEAVY EQUIPMENT OPERATOR this procedure are in the results section. MAGNESIUM Routine 10/01/2020 6:05 Results for PM MOBILE HEAVY EQUIPMENT OPERATOR this procedure are in the results section. BASIC METABOLIC PANEL (7) Routine 10/01/2020 6:05 Results for PM MOBILE HEAVY EQUIPMENT OPERATOR this procedure are in the results section. CALCIUM, IONIZED Routine 10/01/2020 6:05 Results for PM MOBILE HEAVY EQUIPMENT OPERATOR this procedure are in the results section. THROMBOELASTOGRAPH (TEG) STAT 10/01/2020 12:04 Results for PM MOBILE HEAVY EQUIPMENT OPERATOR this procedure are in the results section. PT/APTT STAT 10/01/2020 10:48 Results for AM MOBILE HEAVY EQUIPMENT OPERATOR this procedure are in the results section. CALCIUM, IONIZED Routine 10/01/2020 10:48 Results for AM MOBILE HEAVY EQUIPMENT OPERATOR this procedure are in the results section. SODIUM Routine 10/01/2020 10:48 Results for AM MOBILE HEAVY EQUIPMENT OPERATOR this procedure are in the results section. PHOSPHORUS Routine 10/01/2020 10:48 Results for AM MOBILE HEAVY EQUIPMENT OPERATOR this procedure are in the results section. PH, ARTERIAL Routine 10/01/2020 10:48 Results for AM MOBILE HEAVY EQUIPMENT OPERATOR this procedure are in the results section. MAGNESIUM Routine 10/01/2020 10:48 Results for AM MOBILE HEAVY EQUIPMENT OPERATOR this procedure are in the results section. POTASSIUM Routine 10/01/2020 10:48 Results for AM MOBILE HEAVY EQUIPMENT OPERATOR this procedure are in the results section. FIBRINOGEN Routine 10/01/2020 4:00 Results for AM MOBILE HEAVY EQUIPMENT OPERATOR this procedure are in the results section. LACTIC ACID, ARTERIAL Routine 10/01/2020 4:00 Re sults for AM MOBILE HEAVY EQUIPMENT OPERATOR this procedure are in the results section. PT/APTT Routine 10/01/2020 4:00 Results for AM MOBILE HEAVY EQUIPMENT OPERATOR this procedure are in the results section. LACTATE DEHYDROGENASE Routine 10/01/2020 4:00 Re sults for (LDH) AM MOBILE HEAVY EQUIPMENT OPERATOR this procedure are in the results section. HEPATIC FUNCTION PANEL Routine 10/01/2020 4:00 R esults for AM MOBILE HEAVY EQUIPMENT OPERATOR this procedure are in the results section. PHOSPHORUS Routine 10/01/2020 4:00 Results for AM MOBILE HEAVY EQUIPMENT OPERATOR this procedure are in the results section. OXYGEN SATURATION, STAT 10/01/2020 4:00 Resul ts for MEASURED AM MOBILE HEAVY EQUIPMENT OPERATOR this procedure are in the results section. MAGNESIUM Routine 10/01/2020 4:00 Results for AM MOBILE HEAVY EQUIPMENT OPERATOR this procedure are in the results section. CBC (HEMOGRAM ONLY) Routine 10/01/2020 4:00 Resu lts for AM MOBILE HEAVY EQUIPMENT OPERATOR this procedure are in the results section. BASIC METABOLIC PANEL (7) Routine 10/01/2020 4:00 Results for AM MOBILE HEAVY EQUIPMENT OPERATOR this procedure are in the results section. XR CHEST 1 VIEW Routine 10/01/2020 12:31 Results for PORTABLE/BEDSIDE AM MOBILE HEAVY EQUIPMENT OPERATOR this proced ure are in the results section. POTASSIUM Routine 10/01/2020 12:22 Results for AM MOBILE HEAVY EQUIPMENT OPERATOR this procedure are in the results section. PH, ARTERIAL Routine 10/01/2020 12:22 Results for AM MOBILE HEAVY EQUIPMENT OPERATOR this procedure are in the results section. POCT-GLUCOSE METER Routine 10/01/2020 12:20 Resul ts for AM MOBILE HEAVY EQUIPMENT OPERATOR this procedure are in the results section. CALCIUM, IONIZED Routine 09/30/2020 8:56 Results for PM MOBILE HEAVY EQUIPMENT OPERATOR this procedure are in the results section. SODIUM Routine 09/30/2020 8:56 Results for PM MOBILE HEAVY EQUIPMENT OPERATOR this procedure are in the results section. PHOSPHORUS Routine 09/30/2020 8:56 Results for PM MOBILE HEAVY EQUIPMENT OPERATOR this procedure are in the results section. MAGNESIUM Routine 09/30/2020 8:56 Results for PM MOBILE HEAVY EQUIPMENT OPERATOR this procedure are in the results section. POTASSIUM Routine 09/30/2020 8:56 Results for PM MOBILE HEAVY EQUIPMENT OPERATOR this procedure are in the results section. CALCIUM, IONIZED Routine 09/30/2020 3:10 Results for PM MOBILE HEAVY EQUIPMENT OPERATOR this procedure are in the results section. SODIUM Routine 09/30/2020 3:10 Results for PM MOBILE HEAVY EQUIPMENT OPERATOR this procedure are in the results section. PHOSPHORUS Routine 09/30/2020 3:10 Results for PM MOBILE HEAVY EQUIPMENT OPERATOR this procedure are in the results section. PH, ARTERIAL Routine 09/30/2020 3:10 Results for PM MOBILE HEAVY EQUIPMENT OPERATOR this procedure are in the results section. MAGNESIUM Routine 09/30/2020 3:10 Results for PM MOBILE HEAVY EQUIPMENT OPERATOR this procedure are in the results section. POTASSIUM Routine 09/30/2020 3:10 Results for PM MOBILE HEAVY EQUIPMENT OPERATOR this procedure are in the results section. POCT-GLUCOSE METER Routine 09/30/2020 11:50 Resul ts for AM MOBILE HEAVY EQUIPMENT OPERATOR this procedure are in the results section. BLOOD GAS, ARTERIAL Routine 09/30/2020 2:53 Resu lts for AM MOBILE HEAVY EQUIPMENT OPERATOR this procedure are in the results section. PHOSPHORUS Routine 09/30/2020 2:53 Results for AM MOBILE HEAVY EQUIPMENT OPERATOR this procedure are in the results section. OXYGEN SATURATION, STAT 09/30/2020 2:53 Resul ts for MEASURED AM MOBILE HEAVY EQUIPMENT OPERATOR this procedure are in the results section. MAGNESIUM Routine 09/30/2020 2:53 Results for AM MOBILE HEAVY EQUIPMENT OPERATOR this procedure are in the results section. CBC (HEMOGRAM ONLY) Routine 09/30/2020 2:53 Resu lts for AM MOBILE HEAVY EQUIPMENT OPERATOR this procedure are in the results section. BASIC METABOLIC PANEL (7) Routine 09/30/2020 2:53 Results for AM MOBILE HEAVY EQUIPMENT OPERATOR this procedure are in the results section. APTT Routine 09/30/2020 2:53 Results for AM MOBILE HEAVY EQUIPMENT OPERATOR this procedure are in the results section. XR CHEST 1 VIEW Routine 09/30/2020 12:35 Results for PORTABLE/BEDSIDE AM MOBILE HEAVY EQUIPMENT OPERATOR this proced ure are in the results section. POCT-GLUCOSE METER Routine 09/29/2020 11:25 Resul ts for PM MOBILE HEAVY EQUIPMENT OPERATOR this procedure are in the results section. MAGNESIUM Routine 09/29/2020 11:25 Results for PM MOBILE HEAVY EQUIPMENT OPERATOR this procedure are in the results section. CALCIUM, IONIZED Routine 09/29/2020 11:25 Results for PM MOBILE HEAVY EQUIPMENT OPERATOR this procedure are in the results section. POTASSIUM Routine 09/29/2020 11:25 Results for PM MOBILE HEAVY EQUIPMENT OPERATOR this procedure are in the results section. ECG 12-LEAD Routine 09/29/2020 8:37 Results for PM MOBILE HEAVY EQUIPMENT OPERATOR this procedure are in the results section. SODIUM Routine 09/29/2020 7:40 Results for PM MOBILE HEAVY EQUIPMENT OPERATOR this procedure are in the results section. PHOSPHORUS Routine 09/29/2020 7:40 Results for PM MOBILE HEAVY EQUIPMENT OPERATOR this procedure are in the results section. MAGNESIUM Routine 09/29/2020 7:40 Results for PM MOBILE HEAVY EQUIPMENT OPERATOR this procedure are in the results section. POTASSIUM Routine 09/29/2020 7:40 Results for PM MOBILE HEAVY EQUIPMENT OPERATOR this procedure are in the results section. POCT-GLUCOSE METER Routine 09/29/2020 7:39 Resul ts for PM [employer] EQUIPMENT OPERATOR this procedure are in the results section. POCT-GLUCOSE METER Routine 09/29/2020 6:13 Resul ts for PM [employer]BILE HEAVY EQUIPMENT OPERATOR this procedure are in the results section. CALCIUM, IONIZED Routine 09/29/2020 4:39 Results for PM [employer] HE[employer] EQUIPMENT OPERATOR this procedure are in the results section. POTASSIUM Routine 09/29/2020 4:39 Results for PM [employer]BILE HEAVY EQUIPMENT OPERATOR this procedure are in the results section. POCT-GLUCOSE METER Routine 09/29/2020 4:38 Resul ts for PM [employer] HE[employer] EQUIPMENT OPERATOR this procedure are in the results section. HGB/HCT (H&H) - STAT LAB STAT 09/29/2020 2:57 Results for PM [employer] HEAV[employer] EQUIPMENT OPERATOR this procedure are in the results section. GLUCOSE-STAT LAB STAT 09/29/2020 2:57 Results for PM [employer]BI[employer] HEAVY EQUIPMENT OPERATOR this procedure are in the results section. POTASSIUM-STAT LAB STAT 09/29/2020 2:57 Resul ts for PM [employer]BI[employer] HEAV[employer] EQUIPMENT OPERATOR this procedure are in the results section. SODIUM NA-STAT LAB STAT 09/29/2020 2:57 Resul ts for PM [employer] HEAVY EQUIPMENT OPERATOR this procedure are in the results section. BLOOD GAS, ARTERIAL STAT 09/29/2020 2:57 Resu lts for PM [employer] HE[employer] EQUIPMENT OPERATOR this procedure are in the results section. BLOOD GAS, ARTERIAL STAT 09/29/2020 2:57 Resu lts for PM [employer] HE[employer] EQUIPMENT OPERATOR this procedure are in the results section. POTASSIUM Routine 09/29/2020 11:46 Results for AM [employer] HEAV[employer] EQUIPMENT OPERATOR this procedure are in the results section. POCT-GLUCOSE METER Routine 09/29/2020 11:45 Resul ts for AM [employer] HE[employer] EQUIPMENT OPERATOR this procedure are in the results section. POCT-GLUCOSE METER Routine 09/29/2020 10:27 Resul ts for AM [employer] HE[employer] EQUIPMENT OPERATOR this procedure are in the results section. CALCIUM, IONIZED Routine 09/29/2020 7:58 Results for AM [employer] HE[employer] EQUIPMENT OPERATOR this procedure are in the results section. SODIUM Routine 09/29/2020 7:58 Results for AM [employer] HEAVY EQUIPMENT OPERATOR this procedure are in the results section. PHOSPHORUS Routine 09/29/2020 7:58 Results for AM [employer] HEAVY EQUIPMENT OPERATOR this procedure are in the results section. PH, ARTERIAL Routine 09/29/2020 7:58 Results for AM [employer] HEAVY EQUIPMENT OPERATOR this procedure are in the results section. MAGNESIUM Routine 09/29/2020 7:58 Results for AM [employer] HEAV[employer] EQUIPMENT OPERATOR this procedure are in the results section. POTASSIUM Routine 09/29/2020 7:58 Results for AM [employer] HE[employer]Y EQUIPMENT OPERATOR this procedure are in the results section. POCT-GLUCOSE METER Routine 09/29/2020 5:37 Resul ts for AM [employer] HE[employer] EQUIPMENT OPERATOR this procedure are in the results section. POCT-GLUCOSE METER Routine 09/29/2020 4:45 Resul ts for AM [employer] HE[employer] EQUIPMENT OPERATOR this procedure are in the results section. HEPATIC FUNCTION PANEL Add-On 09/29/2020 3:21 R esults for AM [employer] EQUIPMENT OPERATOR this procedure are in the results section. HGB/HCT (H&H) - STAT LAB STAT 09/29/2020 3:21 Results for AM [employer] EQUIPMENT OPERATOR this procedure are in the results section. GLUCOSE-STAT LAB STAT 09/29/2020 3:21 Results for AM [employer] HE[employer] EQUIPMENT OPERATOR this procedure are in the results section. POTASSIUM-STAT LAB STAT 09/29/2020 3:21 Resul ts for AM [employer] HE[employer] EQUIPMENT OPERATOR this procedure are in the results section. SODIUM NA-STAT LAB STAT 09/29/2020 3:21 Resul ts for AM [employer] EQUIPMENT OPERATOR this procedure are in the results section. BLOOD GAS, ARTERIAL STAT 09/29/2020 3:21 Resu lts for AM [employer] EQUIPMENT OPERATOR this procedure are in the results section. BLOOD GAS, ARTERIAL STAT 09/29/2020 3:21 Resu lts for AM [employer] HE[employer] EQUIPMENT OPERATOR this procedure are in the results section. LACTIC ACID, ARTERIAL STAT 09/29/2020 3:21 Re sults for AM [employer] HE[employer] EQUIPMENT OPERATOR this procedure are in the results section. PHOSPHORUS Routine 09/29/2020 3:21 Results for AM [employer] HE[employer] EQUIPMENT OPERATOR this procedure are in the results section. OXYGEN SATURATION, STAT 09/29/2020 3:21 Resul ts for MEASURED AM [employer] EQUIPMENT OPERATOR this procedure are in the results section. MAGNESIUM Routine 09/29/2020 3:21 Results for AM [employer] HE[employer] EQUIPMENT OPERATOR this procedure are in the results section. CBC (HEMOGRAM ONLY) Routine 09/29/2020 3:21 Resu lts for AM [employer] EQUIPMENT OPERATOR this procedure are in the results section. BASIC METABOLIC PANEL (7) Routine 09/29/2020 3:21 Results for AM [employer] EQUIPMENT OPERATOR this procedure are in the results section. APTT Routine 09/29/2020 3:21 Results for AM [employer] HE[employer] EQUIPMENT OPERATOR this procedure are in the results section. PROTHROMBIN TIME/INR Routine 09/29/2020 3:21 Res ults for AM [employer] EQUIPMENT OPERATOR this procedure are in the results section. XR CHEST 1 VIEW Routine 09/29/2020 12:58 Results for PORTABLE/BEDSIDE AM [employer] EQUIPMENT OPERATOR this proced ure are in the results section. POCT-GLUCOSE METER Routine 09/29/2020 12:04 Resul ts for AM [employer] EQUIPMENT OPERATOR this procedure are in the results section. CALCIUM, IONIZED Routine 09/29/2020 12:01 Results for AM [employer] EQUIPMENT OPERATOR this procedure are in the results section. POTASSIUM Routine 09/29/2020 12:01 Results for AM [employer] HE[employer] EQUIPMENT OPERATOR this procedure are in the results section. PREPARE CRYOPRECIPITATE STAT 09/28/2020 11:54 Results for PM [employer] EQUIPMENT OPERATOR this procedure are in the results section. PREPARE PLATELETS STAT 09/28/2020 11:54 Result s for PM [employer] EQUIPMENT OPERATOR this procedure are in the results section. PREPARE RBC STAT 09/28/2020 11:54 Results for PM [employer] HE[employer] EQUIPMENT OPERATOR this procedure are in the results section. PREPARE PLASMA STAT 09/28/2020 11:54 Results f or PM [employer] EQUIPMENT OPERATOR this procedure are in the results section. POCT-GLUCOSE METER Routine 09/28/2020 8:05 Resul ts for PM [employer] EQUIPMENT OPERATOR this procedure are in the results section. SODIUM Routine 09/28/2020 8:01 Results for PM [employer] HEAV[employer] EQUIPMENT OPERATOR this procedure are in the results section. PHOSPHORUS Routine 09/28/2020 8:01 Results for PM [employer] HE[employer] EQUIPMENT OPERATOR this procedure are in the results section. PH, ARTERIAL Routine 09/28/2020 8:01 Results for PM [employer] HEAV[employer] EQUIPMENT OPERATOR this procedure are in the results section. MAGNESIUM Routine 09/28/2020 8:01 Results for PM [employer] HEAV[employer] EQUIPMENT OPERATOR this procedure are in the results section. POTASSIUM Routine 09/28/2020 8:01 Results for PM [employer] EQUIPMENT OPERATOR this procedure are in the results section. SARS-COV2/RT-PCR ([facility] & STAT 09/28/2020 8:01 Results for REF LABS) PM [employer] EQUIPMENT OPERATOR this procedure are in the results section. XR CHEST 1 VIEW STAT 09/28/2020 7:05 Results for PORTABLE/BEDSIDE PM [employer] EQUIPMENT OPERATOR this proced ure are in the results section. POCT-GLUCOSE METER Routine 09/28/2020 6:03 Resul ts for PM [employer] EQUIPMENT OPERATOR this procedure are in the results section. POCT-GLUCOSE METER Routine 09/28/2020 5:01 Resul ts for PM [employer] EQUIPMENT OPERATOR this procedure are in the results section. LACTIC ACID, ARTERIAL STAT 09/28/2020 3:58 Re sults for PM [employer] EQUIPMENT OPERATOR this procedure are in the results section. CALCIUM, IONIZED Routine 09/28/2020 3:58 Results for PM [employer] HE[employer] EQUIPMENT OPERATOR this procedure are in the results section. POTASSIUM Routine 09/28/2020 3:58 Results for PM [employer] HE[employer] EQUIPMENT OPERATOR this procedure are in the results section. POCT-GLUCOSE METER Routine 09/28/2020 3:57 Resul ts for PM [employer] HE[employer] EQUIPMENT OPERATOR this procedure are in the results section. POCT-GLUCOSE METER Routine 09/28/2020 3:10 Resul ts for PM [employer] EQUIPMENT OPERATOR this procedure are in the results section. POCT-GLUCOSE METER Routine 09/28/2020 2:06 Resul ts for PM [employer] HEAVY EQUIPMENT OPERATOR this procedure are in the results section. POCT-GLUCOSE METER Routine 09/28/2020 12:01 Resul ts for PM [employer] HE[employer] EQUIPMENT OPERATOR this procedure are in the results section. LACTIC ACID, ARTERIAL STAT 09/28/2020 11:58 Re sults for AM [employer] EQUIPMENT OPERATOR this procedure are in the results section. POTASSIUM Routine 09/28/2020 11:58 Results for AM [employer] EQUIPMENT OPERATOR this procedure are in the results section. 2D ECHO W/ DOPPLER FER 09/28/2020 10:17 Resul ts for (CW/PW/COLOR) AM [employer] EQUIPMENT OPERATOR this procedure are in the results section. POCT-GLUCOSE METER Routine 09/28/2020 10:17 Resul ts for AM [employer] EQUIPMENT OPERATOR this procedure are in the results section. POCT-GLUCOSE METER Routine 09/28/2020 9:16 Resul ts for AM [employer] EQUIPMENT OPERATOR this procedure are in the results section. CALCIUM, IONIZED Routine 09/28/2020 8:01 Results for AM [employer] EQUIPMENT OPERATOR this procedure are in the results section. POCT-GLUCOSE METER Routine 09/28/2020 8:00 Resul ts for AM [employer] HE[employer] EQUIPMENT OPERATOR this procedure are in the results section. XR CHEST 1 VIEW Routine 09/28/2020 7:30 Results for PORTABLE/BEDSIDE AM [employer] EQUIPMENT OPERATOR this proced ure are in the results section. POCT-GLUCOSE METER Routine 09/28/2020 6:54 Resul ts for AM [employer] HE[employer] EQUIPMENT OPERATOR this procedure are in the results section. POCT-GLUCOSE METER Routine 09/28/2020 6:20 Resul ts for AM [employer] HEAV[employer] EQUIPMENT OPERATOR this procedure are in the results section. POCT-GLUCOSE METER Routine 09/28/2020 5:14 Resul ts for AM [employer] HE[employer] EQUIPMENT OPERATOR this procedure are in the results section. APTT Routine 09/28/2020 4:08 Results for AM [employer] HE[employer] EQUIPMENT OPERATOR this procedure are in the results section. HGB/HCT (H&H) - STAT LAB STAT 09/28/2020 4:08 Results for AM [employer] HE[employer] EQUIPMENT OPERATOR this procedure are in the results section. GLUCOSE-STAT LAB STAT 09/28/2020 4:08 Results for AM [employer] HEAV[employer] EQUIPMENT OPERATOR this procedure are in the results section. POTASSIUM-STAT LAB STAT 09/28/2020 4:08 Resul ts for AM [employer] HEAV[employer] EQUIPMENT OPERATOR this procedure are in the results section. SODIUM NA-STAT LAB STAT 09/28/2020 4:08 Resul ts for AM [employer] HEAV[employer] EQUIPMENT OPERATOR this procedure are in the results section. BLOOD GAS, ARTERIAL STAT 09/28/2020 4:08 Resu lts for AM [employer] HE[employer] EQUIPMENT OPERATOR this procedure are in the results section. LACTIC ACID, ARTERIAL STAT 09/28/2020 4:08 Re sults for AM [employer] HE[employer] EQUIPMENT OPERATOR this procedure are in the results section. BLOOD GAS, ARTERIAL STAT 09/28/2020 4:08 Resu lts for AM [employer] HE[employer]Y EQUIPMENT OPERATOR this procedure are in the results section. OXYGEN SATURATION, STAT 09/28/2020 4:08 Resul ts for MEASURED AM [employer] EQUIPMENT OPERATOR this procedure are in the results section. PROTHROMBIN TIME/INR Routine 09/28/2020 4:08 Res ults for AM [employer] EQUIPMENT OPERATOR this procedure are in the results section. MAGNESIUM Routine 09/28/2020 4:08 Results for AM [employer] HE[employer] EQUIPMENT OPERATOR this procedure are in the results section. PHOSPHORUS Routine 09/28/2020 4:08 Results for AM [employer] HE[employer] EQUIPMENT OPERATOR this procedure are in the results section. BASIC METABOLIC PANEL (7) Routine 09/28/2020 4:08 Results for AM [employer] EQUIPMENT OPERATOR this procedure are in the results section. CBC (HEMOGRAM ONLY) Routine 09/28/2020 4:08 Resu lts for AM [employer] HE[employer] EQUIPMENT OPERATOR this procedure are in the results section. CALCIUM, IONIZED Routine 09/28/2020 2:37 Results for AM [employer] HE[employer] EQUIPMENT OPERATOR this procedure are in the results section. HGB/HCT (H&H) - STAT LAB STAT 09/28/2020 2:37 Results for AM [employer] HE[employer] EQUIPMENT OPERATOR this procedure are in the results section. GLUCOSE-STAT LAB STAT 09/28/2020 2:37 Results for AM [employer] HE[employer] EQUIPMENT OPERATOR this procedure are in the results section. POTASSIUM-STAT LAB STAT 09/28/2020 2:37 Resul ts for AM [employer] HE[employer] EQUIPMENT OPERATOR this procedure are in the results section. SODIUM NA-STAT LAB STAT 09/28/2020 2:37 Resul ts for AM [employer] HE[employer] EQUIPMENT OPERATOR this procedure are in the results section. BLOOD GAS, ARTERIAL STAT 09/28/2020 2:37 Resu lts for AM [employer] HE[employer] EQUIPMENT OPERATOR this procedure are in the results section. LACTIC ACID, ARTERIAL STAT 09/28/2020 2:37 Re sults for AM [employer] HE[employer] EQUIPMENT OPERATOR this procedure are in the results section. BLOOD GAS, ARTERIAL STAT 09/28/2020 2:37 Resu lts for AM [employer] HE[employer] EQUIPMENT OPERATOR this procedure are in the results section. XR CHEST 1 VIEW Routine 09/28/2020 1:42 Results for PORTABLE/BEDSIDE AM [employer] EQUIPMENT OPERATOR this proced ure are in the results section. HGB/HCT (H&H) - STAT LAB STAT 09/27/2020 11:59 Results for PM [employer] EQUIPMENT OPERATOR this procedure are in the results section. GLUCOSE-STAT LAB STAT 09/27/2020 11:59 Results for PM [employer] HE[employer] EQUIPMENT OPERATOR this procedure are in the results section. POTASSIUM-STAT LAB STAT 09/27/2020 11:59 Resul ts for PM [employer] HE[employer] EQUIPMENT OPERATOR this procedure are in the results section. SODIUM NA-STAT LAB STAT 09/27/2020 11:59 Resul ts for PM [employer] HE[employer] EQUIPMENT OPERATOR this procedure are in the results section. BLOOD GAS, ARTERIAL STAT 09/27/2020 11:59 Resu lts for PM [employer] EQUIPMENT OPERATOR this procedure are in the results section. LACTIC ACID, ARTERIAL STAT 09/27/2020 11:59 Re sults for PM [employer] HE[employer] EQUIPMENT OPERATOR this procedure are in the results section. BLOOD GAS, ARTERIAL STAT 09/27/2020 11:59 Resu lts for PM [employer] HE[employer] EQUIPMENT OPERATOR this procedure are in the results section. XR CHEST 1 VIEW STAT 09/27/2020 11:06 Results for PORTABLE/BEDSIDE PM [employer] EQUIPMENT OPERATOR this proced ure are in the results section. HEPATITIS B SURFACE Routine 09/27/2020 9:47 Resu lts for ANTIGEN PM [employer] EQUIPMENT OPERATOR this procedure are in the results section. HGB/HCT (H&H) - STAT LAB STAT 09/27/2020 9:47 Results for PM [employer] HE[employer] EQUIPMENT OPERATOR this procedure are in the results section. GLUCOSE-STAT LAB STAT 09/27/2020 9:47 Results for PM [employer] HEAVY EQUIPMENT OPERATOR this procedure are in the results section. POTASSIUM-STAT LAB STAT 09/27/2020 9:47 Resul ts for PM [employer] HEAV[employer] EQUIPMENT OPERATOR this procedure are in the results section. SODIUM NA-STAT LAB STAT 09/27/2020 9:47 Resul ts for PM [employer] HEAVY EQUIPMENT OPERATOR this procedure are in the results section. BLOOD GAS, ARTERIAL STAT 09/27/2020 9:47 Resu lts for PM [employer] HEAVY EQUIPMENT OPERATOR this procedure are in the results section. LACTIC ACID, ARTERIAL STAT 09/27/2020 9:47 Re sults for PM [employer] HEAVY EQUIPMENT OPERATOR this procedure are in the results section. CALCIUM, IONIZED STAT 09/27/2020 9:47 Results for PM [employer] HEAVY EQUIPMENT OPERATOR this procedure are in the results section. BLOOD GAS, ARTERIAL STAT 09/27/2020 9:47 Resu lts for PM [employer]BI[employer] HEAVY EQUIPMENT OPERATOR this procedure are in the results section. POTASSIUM STAT 09/27/2020 9:47 Results for PM [employer]BILE HEAVY EQUIPMENT OPERATOR this procedure are in the results section. GLUCOSE STAT 09/27/2020 9:47 Results for PM [employer]BI[employer] HEAVY EQUIPMENT OPERATOR this procedure are in the results section. XR CHEST 1 VIEW Routine 09/27/2020 7:57 Results for PORTABLE/BEDSIDE PM [employer] HEAVY EQUIPMENT OPERATOR this proced ure are in the results section. LACTIC ACID, ARTERIAL STAT 09/27/2020 7:54 Re sults for PM [employer] HEAV[employer] EQUIPMENT OPERATOR this procedure are in the results section. (CELLAVISION MANUAL DIFF) STAT 09/27/2020 7:52 Results for PM [employer] HEAV[employer] EQUIPMENT OPERATOR this procedure are in the results section. CBC W/PLT COUNT & AUTO STAT 09/27/2020 7:52 R esults for DIFFERENTIAL PM [employer] EQUIPMENT OPERATOR this procedure are in the results section. CBC W/PLT COUNT & AUTO STAT 09/27/2020 7:52 R esults for DIFFERENTIAL PM [employer] EQUIPMENT OPERATOR this procedure are in the results section. BLOOD GAS, ARTERIAL STAT 09/27/2020 7:52 Resu lts for PM [employer] HEAVY EQUIPMENT OPERATOR this procedure are in the results section. OXYGEN SATURATION, STAT 09/27/2020 7:50 Resul ts for MEASURED PM [employer] EQUIPMENT OPERATOR this procedure are in the results section. THROMBOELASTOGRAPH (TEG) Routine 09/27/2020 7:50 Results for PM [employer] HEAV[employer] EQUIPMENT OPERATOR this procedure are in the results section. FIBRINOGEN STAT 09/27/2020 7:50 Results for PM [employer]BI[employer] HEAVY EQUIPMENT OPERATOR this procedure are in the results section. APTT STAT 09/27/2020 7:50 Results for PM [employer] HEAVY EQUIPMENT OPERATOR this procedure are in the results section. PROTHROMBIN TIME/INR STAT 09/27/2020 7:50 Res ults for PM [employer] HEAV[employer] EQUIPMENT OPERATOR this procedure are in the results section. PHOSPHORUS STAT 09/27/2020 7:50 Results for PM [employer]BILE HEAVY EQUIPMENT OPERATOR this procedure are in the results section. MAGNESIUM STAT 09/27/2020 7:50 Results for PM [employer] HEAVY EQUIPMENT OPERATOR this procedure are in the results section. BASIC METABOLIC PANEL (7) STAT 09/27/2020 7:50 Results for PM [employer] HEAVY EQUIPMENT OPERATOR this procedure are in the results section. TROPONIN I Routine 09/27/2020 7:50 Results for PM [employer] HEAVY EQUIPMENT OPERATOR this procedure are in the results section. TRANSFUSE PLASMA Routine 09/27/2020 6:54 PM MOBILE HEAVY EQUIPMENT OPERATOR HGB/HCT (H&H) - STAT LAB STAT 09/27/2020 6:50 Results for PM [employer]BI[employer] HEAVY EQUIPMENT OPERATOR this procedure are in the results section. GLUCOSE-STAT LAB STAT 09/27/2020 6:50 Results for PM [employer]BILE HEAVY EQUIPMENT OPERATOR this procedure are in the results section. POTASSIUM-STAT LAB STAT 09/27/2020 6:50 Resul ts for PM MOBILE HEAVY EQUIPMENT OPERATOR this procedure are in the results section. SODIUM NA-STAT LAB STAT 09/27/2020 6:50 Resul ts for PM MOBI[employer] HEAVY EQUIPMENT OPERATOR this procedure are in the results section. BLOOD GAS, ARTERIAL STAT 09/27/2020 6:50 Resu lts for PM [employer]BI[employer] HEAVY EQUIPMENT OPERATOR this procedure are in the results section. BLOOD GAS, ARTERIAL STAT 09/27/2020 6:50 Resu lts for PM MOBI[employer] HEAVY EQUIPMENT OPERATOR this procedure are in the results section. CALCIUM, IONIZED STAT 09/27/2020 6:50 Results for PM [employer]BI[employer] HEAVY EQUIPMENT OPERATOR this procedure are in the results section. TRANSFUSE CRYOPRECIPITATE Routine 09/27/2020 6:31 PM MOBILE HEAVY EQUIPMENT OPERATOR TRANSFUSE CRYOPRECIPITATE Routine 09/27/2020 6:26 PM MOBILE HEAVY EQUIPMENT OPERATOR TRANSFUSE LEUKO-REDUCED Routine 09/27/2020 6:20 PLATELETS PM MOBILE HEAVY EQUIPMENT OPERATOR TRANSFUSE LEUKO-REDUCED Routine 09/27/2020 6:16 RED BLOOD CELLS PM [employer]BILE HEAVY EQUIPMENT OPERATOR TRANSFUSE LEUKO-REDUCED Routine 09/27/2020 6:14 PLATELETS PM [employer]BI[employer] HEAVY EQUIPMENT OPERATOR ANESTHESIA GAMALIEL Routine 09/27/2020 6:10 Results f or PM [employer] HEAVY EQUIPMENT OPERATOR this procedure are in the results section. POCT-ACT Routine 09/27/2020 6:03 Results for PM [employer]BILE HEAVY EQUIPMENT OPERATOR this procedure are in the results section. HGB/HCT (H&H) - STAT LAB Routine 09/27/2020 5:57 Results for PM [employer]BILE HEAVY EQUIPMENT OPERATOR this procedure are in the results section. GLUCOSE-STAT LAB Routine 09/27/2020 5:57 Results for PM [employer]BILE HEAVY EQUIPMENT OPERATOR this procedure are in the results section. POTASSIUM-STAT LAB Routine 09/27/2020 5:57 Resul ts for PM MOBILE HEAVY EQUIPMENT OPERATOR this procedure are in the results section. SODIUM NA-STAT LAB Routine 09/27/2020 5:57 Resul ts for PM MOBILE HEAVY EQUIPMENT OPERATOR this procedure are in the results section. BLOOD GAS, ARTERIAL Routine 09/27/2020 5:57 Resu lts for PM MOBILE HEAVY EQUIPMENT OPERATOR this procedure are in the results section. CALCIUM, IONIZED STAT 09/27/2020 5:57 Results for PM MOBILE HEAVY EQUIPMENT OPERATOR this procedure are in the results section. BLOOD GAS, ARTERIAL Routine 09/27/2020 5:57 Resu lts for PM MOBILE HEAVY EQUIPMENT OPERATOR this procedure are in the results section. PLATELET COUNT STAT 09/27/2020 5:57 Results f or PM [employer]BI[employer] HEAVY EQUIPMENT OPERATOR this procedure are in the results section. FIBRINOGEN STAT 09/27/2020 5:57 Results for PM MOBILE HEAVY EQUIPMENT OPERATOR this procedure are in the results section. APTT STAT 09/27/2020 5:57 Results for PM MOBILE HEAVY EQUIPMENT OPERATOR this procedure are in the results section. PROTHROMBIN TIME/INR STAT 09/27/2020 5:57 Res ults for PM [employer]BILE HEAVY EQUIPMENT OPERATOR this procedure are in the results section. CBC W/PLT COUNT & AUTO Routine 09/27/2020 5:57 R esults for DIFFERENTIAL PM [employer]BI[employer] HEAVY EQUIPMENT OPERATOR this procedure are in the results section. CBC W/PLT COUNT & AUTO STAT Add-on 09/27/2020 5:57 R esults for DIFFERENTIAL PM [employer]BI[employer] HEAVY EQUIPMENT OPERATOR this procedure are in the results section. TRANSFUSE LEUKO-REDUCED Routine 09/27/2020 5:44 RED BLOOD CELLS PM [employer]BILE HEAVY EQUIPMENT OPERATOR TRANSFUSE PLASMA Routine 09/27/2020 5:38 PM MOBILE HEAVY EQUIPMENT OPERATOR HGB/HCT (H&H) - STAT LAB STAT 09/27/2020 5:33 Results for PM MOBILE HEAVY EQUIPMENT OPERATOR this procedure are in the results section. GLUCOSE-STAT LAB STAT 09/27/2020 5:33 Results for PM MOBILE HEAVY EQUIPMENT OPERATOR this procedure are in the results section. POTASSIUM-STAT LAB STAT 09/27/2020 5:33 Resul ts for PM MOBILE HEAVY EQUIPMENT OPERATOR this procedure are in the results section. SODIUM NA-STAT LAB STAT 09/27/2020 5:33 Resul ts for PM MOBILE HEAVY EQUIPMENT OPERATOR this procedure are in the results section. BLOOD GAS, ARTERIAL STAT 09/27/2020 5:33 Resu lts for PM MOBILE HEAVY EQUIPMENT OPERATOR this procedure are in the results section. CALCIUM, IONIZED STAT 09/27/2020 5:33 Results for PM MOBILE HEAVY EQUIPMENT OPERATOR this procedure are in the results section. BLOOD GAS, ARTERIAL STAT 09/27/2020 5:33 Resu lts for PM MOBILE HEAVY EQUIPMENT OPERATOR this procedure are in the results section. POCT-ACT Routine 09/27/2020 4:51 Results for PM MOBILE HEAVY EQUIPMENT OPERATOR this procedure are in the results section. HGB/HCT (H&H) - STAT LAB STAT 09/27/2020 4:48 Results for PM MOBILE HEAVY EQUIPMENT OPERATOR this procedure are in the results section. GLUCOSE-STAT LAB STAT 09/27/2020 4:48 Results for PM MOBILE HEAVY EQUIPMENT OPERATOR this procedure are in the results section. POTASSIUM-STAT LAB STAT 09/27/2020 4:48 Resul ts for PM MOBILE HEAVY EQUIPMENT OPERATOR this procedure are in the results section. SODIUM NA-STAT LAB STAT 09/27/2020 4:48 Resul ts for PM MOBILE HEAVY EQUIPMENT OPERATOR this procedure are in the results section. BLOOD GAS, ARTERIAL STAT 09/27/2020 4:48 Resu lts for PM MOBILE HEAVY EQUIPMENT OPERATOR this procedure are in the results section. BLOOD GAS, ARTERIAL STAT 09/27/2020 4:48 Resu lts for PM MOBILE HEAVY EQUIPMENT OPERATOR this procedure are in the results section. POCT-ACT Routine 09/27/2020 4:12 Results for PM MOBILE HEAVY EQUIPMENT OPERATOR this procedure are in the results section. HGB/HCT (H&H) - STAT LAB STAT 09/27/2020 4:10 Results for PM MOBILE HEAVY EQUIPMENT OPERATOR this procedure are in the results section. GLUCOSE-STAT LAB STAT 09/27/2020 4:10 Results for PM MOBILE HEAVY EQUIPMENT OPERATOR this procedure are in the results section. POTASSIUM-STAT LAB STAT 09/27/2020 4:10 Resul ts for PM MOBILE HEAVY EQUIPMENT OPERATOR this procedure are in the results section. SODIUM NA-STAT LAB STAT 09/27/2020 4:10 Resul ts for PM MOBILE HEAVY EQUIPMENT OPERATOR this procedure are in the results section. BLOOD GAS, ARTERIAL STAT 09/27/2020 4:10 Resu lts for PM MOBILE HEAVY EQUIPMENT OPERATOR this procedure are in the results section. BLOOD GAS, ARTERIAL STAT 09/27/2020 4:10 Resu lts for PM MOBILE HEAVY EQUIPMENT OPERATOR this procedure are in the results section. POCT-ACT Routine 09/27/2020 3:43 Results for PM MOBILE HEAVY EQUIPMENT OPERATOR this procedure are in the results section. HGB/HCT (H&H) - STAT LAB STAT 09/27/2020 3:40 Results for PM MOBILE HEAVY EQUIPMENT OPERATOR this procedure are in the results section. GLUCOSE-STAT LAB STAT 09/27/2020 3:40 Results for PM MOBILE HEAVY EQUIPMENT OPERATOR this procedure are in the results section. POTASSIUM-STAT LAB STAT 09/27/2020 3:40 Resul ts for PM MOBILE HEAVY EQUIPMENT OPERATOR this procedure are in the results section. SODIUM NA-STAT LAB STAT 09/27/2020 3:40 Resul ts for PM MOBILE HEAVY EQUIPMENT OPERATOR this procedure are in the results section. BLOOD GAS, ARTERIAL STAT 09/27/2020 3:40 Resu lts for PM MOBILE HEAVY EQUIPMENT OPERATOR this procedure are in the results section. BLOOD GAS, ARTERIAL STAT 09/27/2020 3:40 Resu lts for PM MOBILE HEAVY EQUIPMENT OPERATOR this procedure are in the results section. POCT-ACT Routine 09/27/2020 3:14 Results for PM MOBILE HEAVY EQUIPMENT OPERATOR this procedure are in the results section. HGB/HCT (H&H) - STAT LAB STAT 09/27/2020 3:11 Results for PM MOBILE HEAVY EQUIPMENT OPERATOR this procedure are in the results section. GLUCOSE-STAT LAB STAT 09/27/2020 3:11 Results for PM MOBILE HEAVY EQUIPMENT OPERATOR this procedure are in the results section. POTASSIUM-STAT LAB STAT 09/27/2020 3:11 Resul ts for PM MOBILE HEAVY EQUIPMENT OPERATOR this procedure are in the results section. SODIUM NA-STAT LAB STAT 09/27/2020 3:11 Resul ts for PM MOBILE HEAVY EQUIPMENT OPERATOR this procedure are in the results section. BLOOD GAS, ARTERIAL STAT 09/27/2020 3:11 Resu lts for PM MOBILE HEAVY EQUIPMENT OPERATOR this procedure are in the results section. BLOOD GAS, ARTERIAL STAT 09/27/2020 3:11 Resu lts for PM MOBILE HEAVY EQUIPMENT OPERATOR this procedure are in the results section. POCT-ACT Routine 09/27/2020 2:54 Results for PM MOBILE HEAVY EQUIPMENT OPERATOR this procedure are in the results section. HGB/HCT (H&H) - STAT LAB STAT 09/27/2020 2:32 Results for PM MOBILE HEAVY EQUIPMENT OPERATOR this procedure are in the results section. GLUCOSE-STAT LAB STAT 09/27/2020 2:32 Results for PM MOBILE HEAVY EQUIPMENT OPERATOR this procedure are in the results section. POTASSIUM-STAT LAB STAT 09/27/2020 2:32 Resul ts for PM MOBILE HEAVY EQUIPMENT OPERATOR this procedure are in the results section. SODIUM NA-STAT LAB STAT 09/27/2020 2:32 Resul ts for PM MOBILE HEAVY EQUIPMENT OPERATOR this procedure are in the results section. BLOOD GAS, ARTERIAL STAT 09/27/2020 2:32 Resu lts for PM MOBILE HEAVY EQUIPMENT OPERATOR this procedure are in the results section. CALCIUM, IONIZED STAT 09/27/2020 2:32 Results for PM MOBILE HEAVY EQUIPMENT OPERATOR this procedure are in the results section. BLOOD GAS, ARTERIAL STAT 09/27/2020 2:32 Resu lts for PM MOBILE HEAVY EQUIPMENT OPERATOR this procedure are in the results section. TRANSFUSE LEUKO-REDUCED Routine 09/27/2020 1:45 RED BLOOD CELLS PM MOBILE HEAVY EQUIPMENT OPERATOR TRANSFUSE LEUKO-REDUCED Routine 09/27/2020 1:45 RED BLOOD CELLS PM MOBILE HEAVY EQUIPMENT OPERATOR HGB/HCT (H&H) - STAT LAB STAT 09/27/2020 1:09 Results for PM MOBILE HEAVY EQUIPMENT OPERATOR this procedure are in the results section. GLUCOSE-STAT LAB STAT 09/27/2020 1:09 Results for PM MOBILE HEAVY EQUIPMENT OPERATOR this procedure are in the results section. POTASSIUM-STAT LAB STAT 09/27/2020 1:09 Resul ts for PM MOBILE HEAVY EQUIPMENT OPERATOR this procedure are in the results section. SODIUM NA-STAT LAB STAT 09/27/2020 1:09 Resul ts for PM MOBILE HEAVY EQUIPMENT OPERATOR this procedure are in the results section. BLOOD GAS, ARTERIAL STAT 09/27/2020 1:09 Resu lts for PM MOBILE HEAVY EQUIPMENT OPERATOR this procedure are in the results section. CALCIUM, IONIZED STAT 09/27/2020 1:09 Results for PM MOBILE HEAVY EQUIPMENT OPERATOR this procedure are in the results section. BLOOD GAS, ARTERIAL STAT 09/27/2020 1:09 Resu lts for PM MOBILE HEAVY EQUIPMENT OPERATOR this procedure are in the results section. ABORH, MANUAL STAT 09/27/2020 12:06 Results fo r PM MOBILE HEAVY EQUIPMENT OPERATOR this procedure are in the results section. GAMALIEL,3D 09/27/2020 12:03 Coronary artery PM MOBILE HEAVY EQUIPMENT OPERATOR disease involving levelock heart without angina pectoris, unspecified vessel or lesion type Case Notes emergent ENDOSCOPIC HARVEST,VEIN 09/27/2020 12:03 PM MOBILE HEAVY EQUIPMENT OPERATOR Coronary artery disease involving levelock heart without angina pectoris, unspecified vessel or lesion type Case Notes emergent BYPASS,AORTO CORONARY LUCAS/SVG 09/27/2020 12:03 PM MOBILE HEAVY EQUIPMENT OPERATOR Coronary artery disease involving levelock heart without angina pectoris, unspecified vessel or lesion type Case Notes emergent TYPE AND SCREEN, STAT 09/27/2020 11:52 AM Resu lts for this AUTOMATED MOBILE HEAVY EQUIPMENT OPERATOR procedure are i n the results section. APTT Routine 09/27/2020 11:52 AM Results for this MOBILE HEAVY EQUIPMENT OPERATOR procedure are i n the results section. HEMOGLOBIN A1C Routine 09/27/2020 11:52 AM Result s for this MOBILE HEAVY EQUIPMENT OPERATOR procedure are i n the results section. TROPONIN I Routine 09/27/2020 11:52 AM Results for this MOBILE HEAVY EQUIPMENT OPERATOR procedure are i n the results section. POCT-GLUCOSE METER Routine 09/27/2020 11:00 AM Re sults for this MOBILE HEAVY EQUIPMENT OPERATOR procedure are i n the results section. IABP INSERTION MCR 09/27/2020 8:49 AM Congestive he art - IP PROC ONLY MOBILE HEAVY EQUIPMENT OPERATOR failure, unspecified HF chronicity, unspecified heart failure type (HCC) POCT-GLUCOSE METER Routine 09/27/2020 8:13 AM Re sults for this MOBILE HEAVY EQUIPMENT OPERATOR procedure are i n the results section. LIPID PANEL Add-On 09/27/2020 5:05 AM Results for this MOBILE HEAVY EQUIPMENT OPERATOR procedure are i n the results section. APTT Routine 09/27/2020 5:05 AM Results for this MOBILE HEAVY EQUIPMENT OPERATOR procedure are i n the results section. PROTHROMBIN TIME/INR Routine 09/27/2020 5:05 AM Results for this MOBILE HEAVY EQUIPMENT OPERATOR procedure are i n the results section. B-TYPE NATRIURETIC Routine 09/27/2020 5:05 AM Re sults for this FACTOR (BNP) MOBILE HEAVY EQUIPMENT OPERATOR procedure are i n the results section. TROPONIN I Routine 09/27/2020 5:05 AM Results for this MOBILE HEAVY EQUIPMENT OPERATOR procedure are i n the results section. MAGNESIUM Routine 09/27/2020 5:05 AM Results for this MOBILE HEAVY EQUIPMENT OPERATOR procedure are i n the results section. PHOSPHORUS Routine 09/27/2020 5:05 AM Results for this MOBILE HEAVY EQUIPMENT OPERATOR procedure are i n the results section. BASIC METABOLIC Routine 09/27/2020 5:05 AM Resul ts for this PANEL (7) MOBILE HEAVY EQUIPMENT OPERATOR procedure are i n the results section. CBC (HEMOGRAM ONLY) Routine 09/27/2020 5:05 AM R esults for this MOBILE HEAVY EQUIPMENT OPERATOR procedure are i n the results section. XR CHEST 1 VIEW Routine 09/27/2020 2:48 AM Resul ts for this PORTABLE/BEDSIDE MOBILE HEAVY EQUIPMENT OPERATOR procedure a re in the results section. POCT-GLUCOSE METER Routine 09/26/2020 9:43 PM Re sults for this MOBILE HEAVY EQUIPMENT OPERATOR procedure are i n the results section. ECG 12-LEAD Routine 09/26/2020 8:49 PM MOBILE HEAVY EQUIPMENT OPERATOR Procedure Note - Interface, External Ris In - 09/26/2020 8:50 PM MOBILE HEAVY EQUIPMENT OPERATOR Ventricular Rate 77 BPM Atrial Rate 77 BPM P-R Interval 194 ms QRS Duration 100 ms Q-T Interval 414 ms QTC Calculation(Bazett) 468 ms P Monroe 32 degrees R Monroe -38 degrees T Monroe 155 degrees Normal sinus rhythm Left axis deviation Left ventricular hypertrophy with repolarization abnormality Abnormal ECG No previous ECGs available ECG 12-LEAD FER 09/26/2020 8:49 PM MOBILE HEAVY EQUIPMENT OPERATOR Resu lts for this procedure are i n the results section . APTT Routine 09/26/2020 8:42 PM MOBILE HEAVY EQUIPMENT OPERATOR Resu lts for this procedure are i n the results section . CBC W/PLT COUNT & AUTO STAT 09/26/2020 8:41 PM MOBILE HEAVY EQUIPMENT OPERATOR Results for this DIFFERENTIAL procedure are i n the results section . PHOSPHORUS STAT 09/26/2020 8:41 PM MOBILE HEAVY EQUIPMENT OPERATOR Resu lts for this procedure are i n the results section . MAGNESIUM STAT 09/26/2020 8:41 PM MOBILE HEAVY EQUIPMENT OPERATOR Resu lts for this procedure are i n the results section . COMPREHENSIVE METABOLIC STAT 09/26/2020 8:41 PM MOBILE HEAVY EQUIPMENT OPERATOR Results for this PANEL procedure are i n the results section . CBC W/PLT COUNT & AUTO STAT 09/26/2020 8:41 PM MOBILE HEAVY EQUIPMENT OPERATOR Results for this DIFFERENTIAL procedure are i n the results section . POCT-GLUCOSE METER Routine 09/26/2020 6:05 PM MOBILE HEAVY EQUIPMENT OPERATOR Results for this procedure are i n the results section . REPORT OF PROCEDURE - 09/26/2020 Result s for this ENDOSCOPY SCAN procedure are in the results section . CARDIAC CATH REPORT - SCAN 09/26/2020 R esults for this procedure are i n the results section . VASCULAR DIAGRAM -SCAN 09/26/2020 Resul ts for this procedure are i n the results section . after 11/16/2019 Results CBC with platelet count + automated diff (10/10/2020 4:21 PM MOBILE HEAVY EQUIPMENT OPERATOR)Only the most recent of4 resultswithin the time period is included. Pathologist Sig nature WBC 13.7 (H) 3.5 - 10.5 [facility] RBC 3.21 (L) 4.63 - 6.08 [facility] M/L [facility] Hemoglobin 9.6 (L) 13.7 - 17.5 [facility] GM/DL [facility] Hematocrit 31.0 (L) 40.1 - 51.0 % [facility] MCV 96.6 (H) 79.0 - 92.2 fL [facility] MCH 29.9 25.7 - 32.2 pg [facility] MCHC 31.0 (L) 32.3 - 36.5 [facility] GM/DL [facility] RDW 16.4 (H) 11.6 - 14.4 % [facility] Platelets 231 150 - 450 K/CU [facility] MPV 11.0 9.4 - 12.4 fL [facility] nRBC 0 0 - 0 /100 WBC [facility] % Neutros 80 % [facility] % Lymphs 9 % [facility] % Monos 5 % [facility] % Eos 5 % [facility] % Baso 1 % [facility] # Neutros 10.94 (H) 1.78 - 5.38 [facility] # Lymphs 1.21 (L) 1.32 - 3.57 [facility] # Monos 0.71 0.30 - 0.82 [facility] # Eos 0.67 (H) 0.04 - 0.54 [facility] # Baso 0.08 0.01 - 0.08 [facility] Immature 0 0 - 1 % [facility] Granulocytes-Relativ [facility] MED[facility] e CENTER Specimen Blood Performing Organization Address City/State/Zipcode Phone Number [facility] [address] [place] [address] CENTER Prothrombin time/INR (10/10/2020 4:21 PM MOBILE HEAVY EQUIPMENT OPERATOR)Only the most recent of11 results within the time period is included. Pathologist Sig nature Protime 29.0 (H) 11.9 - 14.2 seconds [facility] INR 2.82 <=5.90 [facility] Specimen Blood Narrative Performed At Effective 03/11/2019: PT Reference Range [facility] Change New: 11.9-14.2 Previous: 11.7-14.7 RECOMMENDED COUMADIN/WARFARIN INR THERAPY RANGES STANDARD DOSE: 2.0-3.0 Includes: PROPHYLAXIS for venous thrombosis, systemic embolization; TREATMENT for venous thrombosis and/or pulmonary embolus. HIGH RISK: Target INR is 2.5-3.5 for patients wiht mechanical heart valves. Performing Organization Address [facility] [place]/[facility] Phone Number [facility] [address], [place] [phone] [place] Basic Metabolic Panel (10/10/2020 4:21 PM MOBILE HEAVY EQUIPMENT OPERATOR)Only the most recent of15 results within the time period is included. Sodium 137 136 - 145 meq/L [facility] Potassium 5.0 3.5 - 5.1 meq/L [facility] Chloride 99 98 - 107 meq/L [facility] CO2 31 (H) 22 - 29 meq/L [facility] BUN 40 (H) 7 - 21 mg/dL [facility] Creatinine 5.55 (H) 0.57 - 1.25 [facility] mg/dL [facility] Glucose 143 (H) 70 - 105 mg/dL [facility] Calcium 10.8 (H) 8.4 - 10.2 [facility] mg/dL [facility] EGFR 10Comment: ESTIMATED mL/min/1.73 sq [facility] GFR IS NOT m [facility] EM[facility] ACCURATE CENTER CREATININE CLEARANCE IN PREDICTING GLOMERULAR FILTRATION RATE. ESTIMATED GFR IS NOT APPLICABLE FOR DIALYSIS PATIENTS. Specimen Blood Narrative Performed At Sleep Lab Technician ID - BS [facility] Performing Organization Address City/State/Zipcode Phone Number [address] [phone] CENTER HEMODIALYSIS INPATIENT (10/10/2020 12:01 PM MOBILE HEAVY EQUIPMENT OPERATOR) Narrative Performed At Joey Aviles RN 10/10/2020 12:0 3 PM - S/P Hemodialysis x 3 hours - Removed 2 L as tolerated. - AVF + B/T, no s/sx of infection noted. No edema/petechiae on site. Bleeding stopped on both arterial and venous access, applied new gauze and taped securely. - Consent verified prior to initiation o f treatment. - Report given to primary nurse. Patient stable post HD. Lab Results Component Value Date WBC 12.2 (H) 10/07/2020 HGB 9.2 (L) 10/07/2020 HCT 29.6 (L) 10/07/2020 MCV 96.1 (H) 10/07/2020 PLT 207 10/07/2020 Lab Results Component Value Date GLUCOSE 105 10/07/2020 CALCIUM 12.4 (H) 10/07/2020 NA 137 10/07/2020 K 5.1 10/07/2020 CO2 26 10/07/2020 CL 100 10/07/2020 BUN 51 (H) 10/07/2020 CREATININE 6.33 (H) 10/07/2020 Joey WARE, RN II 7S6- Adult Dialysis [phone] POC-Glucose meter (10/07/2020 10:28 AM MOBILE HEAVY EQUIPMENT OPERATOR)Only the most recent of37 results within the time period is included. POC-Glucose Meter 112 (H) 70 - 110 mg/dL [facility] Comment: [facility] EM[facility]ENC[facility]PART[facility] : TESTED AT [facility] [address] [facility], [address] CENTER : Sleep Lab Technician/Seconds Grader ID = [id number] for Joey Aviles Specimen Blood Performing Organization Address City/[facility]/Zipcode Phone Number [address] [address] [place] CBC (hemogram only) (10/07/2020 5:20 AM MOBILE HEAVY EQUIPMENT OPERATOR)Only the most recent of11 results within the time period is included. Pathologist Sig nature WBC 12.2 (H) 3.5 - 10.5 K/L [facility] RBC 3.08 (L) 4.63 - 6.08 M/L [facility] Hemoglobin 9.2 (L) 13.7 - 17.5 GM/DL [facility] Hematocrit 29.6 (L) 40.1 - 51.0 % [facility] MCV 96.1 (H) 79.0 - 92.2 fL [facility] MCH 29.9 25.7 - 32.2 pg [facility] MCHC 31.1 (L) 32.3 - 36.5 GM/DL [facility] RDW 16.3 (H) 11.6 - 14.4 % [facility] Platelets 207 150 - 450 K/CU MM [facility] MPV 10.6 9.4 - 12.4 fL [facility] nRBC 0 0 - 0 /100 WBC [facility] Specimen Blood Performing Organization Address City/[facility] Phone Number [address] [address] CENTER Magnesium (10/07/2020 5:20 AM MOBILE HEAVY EQUIPMENT OPERATOR)Only the most recent of21 resultswithin the time period is included. Pathologist Sig nature Magnesium 2.4 1.6 - 2.6 mg/dL [facility] Specimen Blood Narrative Performed At Sleep Lab Technician [place] [facility] Performing Organization Address City/[facility]/Zipcode Phone Number [address] [address] CENTER aPTT (10/06/2020 6:55 AM MOBILE HEAVY EQUIPMENT OPERATOR)Only the most recent of16 resultswithin the time period is included. Pathologist Sig nature PTT 57.8 (H) 22.5 - 36.0 seconds [facility] Specimen Blood Narrative Performed At While on warfarin. [facility] Performing Organization Address City/[facility]/Zipcode Phone Number [address] [address] CENTER Phosphorus (10/06/2020 6:55 AM MOBILE HEAVY EQUIPMENT OPERATOR)Only the most recent of19 resultswithin the time period is included. Pathologist Sig nature Phosphorus 4.3 2.3 - 4.7 mg/dL [facility] Specimen Blood Narrative Performed At Sleep Lab Technician ID - EVELIA F [facility] Performing Organization Address City/[facility]/Zipcode Phone Number [address] [address] [place] SARS-CoV2/RT-PCR (Asymptomatic ONLY) (10/05/2020 9:57 PM MOBILE HEAVY EQUIPMENT OPERATOR)Only the most recent of2 resultswithin the time period is included. SARS-COV2/RT-PCR Negative Not Detected, [facility] Negative, See [facility] external report CENTER for linked test SARS-COV-2 [facility] PERFORMING LAB [facility] Specimen Other - Nasopharyngeal wall structure (b gladis structure) Narrative Performed At Negative result for this test determines that [facility] SARS-CoV-2 RNA was not present in the specimen above the Limit of Detection (LOD). However, Negative results do not preclude SARS-CoV-2 infection and should not be used as the sole basis for treatment or patient management decisions. Negative results must be combined with clinical observations, patient history, and epidemiological information. A false negative result may occur if a specimen is improperly collected, transported or handled. A false negative result should be considered if patient's recent exposures or clinical presentation indicate that COVID-19 (SARS-CoV-2) is likely and diagnostic tests for other causes of illness are negative. Re-testing should be considered in cases of suspected false negatives. The limit of detection for this assay is 800 copies/mL. This SARS CoV-2 test is a real-time RT-PCR test intended for the qualitative detection of nucleic acid from SARS-CoV-2 in a nasopharyngeal swab specimen collected from individuals suspected of COVID-19 by their healthcare provider. This test has not been Food and Drug Administration (FDA) cleared or approved. This is a modified version of an approved Emergency Use Authorization (EUA) and is in the process of review by the FDA. Once authorized by the FDA, the issued EUA will be effective until the declaration that circumstances exist justifying the authorization of the emergency use of in vitro diagnostic tests for detection and/or diagnosis of COVID-19 is terminated under Section 564(b)(2) of the Act or the EUA is revoked under Section 564(g) of the Act. Fact Sheet for Healthcare Providers: https://www.[employer]/sites/default/files/pro duct/documents/Fact_Sheet_HC_Providers_Lyra_SA RS-CoV-2.pdf Fact Sheet for Healthcare Patients: https://www.[employer]/sites/default/files/pro duct/documents/Fact_Sheet_Patients_Lyra_SARS-C oV-2.pdf Performing Laboratory: [address] [place] [address] Performing Organization Address [facility] [place]/[facility]/[place] [address] CENTER Iron, TIBC, % sat. (without ferritin) (10/05/2020 5:02 AM MOBILE HEAVY EQUIPMENT OPERATOR) Pathologist Sig nature Iron 36.0 (L) 40.0 - 160.0 ug/dL [facility] TIBC 143 (L) 250 - 450 ug/dL [facility] Iron % Saturation 25 20 - 55 % [facility] Specimen Blood Narrative Performed At Sleep Lab Technician [place] - YULIANA Haro [facility] Performing Organization Address City/[facility]/Zipcode Phone Number [facility] [address] [address] [place] PTH, intact (10/05/2020 5:02 AM MOBILE HEAVY EQUIPMENT OPERATOR) Pathologist Sig nature PTH 376.4 (H) 8.5 - 72.5 pg/mL [facility] Specimen Blood Narrative Performed At Sleep Lab Technician ID - YULIANA Haro [facility] Performing Organization Address [facility] [place]/[facility] Phone Number [address] [address] [place] Ferritin (10/05/2020 5:02 AM MOBILE HEAVY EQUIPMENT OPERATOR) Pathologist Sig nature Ferritin 1,986.09 (H) 5.00 - 275.00 ng/mL [facility] Specimen Blood Narrative Performed At Sleep Lab Technician ID - YULIANA Haro [facility] Performing Organization Address [facility] [place]/[facility] Phone Number [address] [address] [place] Oxygen saturation, measured (10/05/2020 4:43 AM MOBILE HEAVY EQUIPMENT OPERATOR)Only the most recent of11 resultswithin the time period is included. Pathologist Sig formerly [facility] O2 Saturation (Measured) 68.9 % [facility] Specimen Blood Performing Organization Address [facility] [place]/[facility] Phone Number [address] [address] [place] HEMODIALYSIS INPATIENT (10/04/2020 12:10 AM MOBILE HEAVY EQUIPMENT OPERATOR) Narrative Performed At Mali Mehta RN 10/04/2020 12:46 AM Procedure tolerated well. Vital signs st able. HD duration 2.5 hours UF 2.3 L via left upper arm AV Fistula. Lab Results Component Value Date WBC 8.2 10/03/2020 HGB 8.7 (L) 10/03/2020 HCT 27.4 (L) 10/03/2020 MCV 95.1 (H) 10/03/2020 PLT 118 (L) 10/03/2020 Lab Results Component Value Date GLUCOSE 107 (H) 10/03/2020 CALCIUM 10.8 (H) 10/03/2020 NA 135 (L) 10/03/2020 K 4.4 10/03/2020 CO2 23 10/03/2020 CL 101 10/03/2020 BUN 28 (H) 10/03/2020 CREATININE 3.28 (H) 10/03/2020 No components found for: HEPSAG Vitals: 10/03/20 2345 BP: Pulse: 110 Resp: 15 Temp: SpO2: 97% 2D Echo W/Doppler(CW/PW/Color) (10/03/2020 12:56 PM MOBILE HEAVY EQUIPMENT OPERATOR) Pathologist Sig nature Ejection Fraction [facility] ECHO HEARTLAB [facility] Specimen Narrative Performed At Transthoracic Echocardiography Report (T TE) [facility] ECHO HEARTLAB [facility] Demographics Patient Name KODI MORAN Date of Study 10/03/2020 PARISH Gender Male Visit Number [id number] Race Unknown Room Number 8A04 Number Date of 1945 Referring Physician Age 75 year(s) 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 Clinical History HGB 8.7 HCT 27.4 % CAD DM ESRD HLD HTN RENAL FAILURE AVR BYPASS AORTO CORONARY LUCAS/SVG 09/27/20 Contrast Medium: Definity. Amount - 2 ml Height: 73 inches Weight: 101.6 kg (224 lbs) BSA: 2.26 m^2 BMI: 29.55 kg/m^2 HR: 102 bpm BP: 122/46 mmHg Summary Lower limits of normal overall left ventricular systolic function (LVEF 50-55%). Diastolic dysfunction is likely due to concomitant heart disease. s/p mechanical AVR. Prosthesis appears well-seated by available views. Trivial AI. AoV dimensionless obstructive index (DOI) is 0.68.Peak Grad 34.47 mmHg; Mean Grad 25.5 mmHg ( averaged in setting of frequent ectopy) Minimally elevated Doppler gradient likely due to increased flow. (AT = 65 ms). Estimated peak systolic PA pressure is 45-50 mmHg. Compared to previous study, Doppler gradients have mildly increased. 3) Mild tricuspid regurgitation. Estimated peak systolic PA pressure is 45-50 mmHg. Signature Findings Left Ventricle Normal left ventricular chamber size. Normal wall thickness. Abnormal septal wall motion in the setting of cardiac surgery. Lower limits of normal overall left ventricular systolic function (LVEF 50-55%). Otherwise segments contract normally. Diastolic dysfunction is likely due to concomitant hear t disease. Left Atrium LA size is mildly enlarged (35-41 ml/m2) . Right Ventricle The right ventricular chamber size and systolic function are within normal limits. RV pacing wire is visualized . Right Atrium RA size is mildly dilated. RA pacing wire is visualized . Atrial Septum Normal interatrial septum by available views. Aortic Valve s/p mechanical AVR. Prosthesis appears well-seated by available views. Trivial AI. AoV dimensionless obstructive index (DOI) is 0.68.Peak Grad 34.47 mmHg; Mean Grad 25.5 mmHg. Minimally elevated Doppler gradient likely due to increased flow. ( AT = 65 ms). Mitral Valve Mild MV leaflet thickening. Moderate mitral annular calcification. Mean gradient 2.9 mmHg at HR 89 bpm. Mild mitral regurgitation. Tricuspid Valve Mild tricuspid regurgitation. Estimated peak systolic PA pressure is 45-50 mmHg. Pulmonic Valve Normal PV structure appears normal by available view s. Pericardium No significant pericardial effusion is visualized. IVC/SVC/PA/PV/Pleural The estimated RA pressure by IVC dynamics 5- 10 mmHg . L pleural effusion is suggested. Chambers/Structures Left Atrium LA Volume: 84.81 ml LA Area: 25.55 cm^2 LA Vol. Index: 38 ml/m^2 Left Ventricle LVIDd: 5.71 cm LVEDV:160.77 ml LV Septum Diastolic: 1 cm LV PW Diastolic: 0.96 cm LVEDV Samano's:175.57 ml LVESV Samano's:95.21 ml LVEF Samano's: 52.6 % LVEDVI: 78 ml/m^2 LVESVI: 42 ml/m^2 LVOT Diameter: 2.18 cm Right Ventricle RVOT VTI: 20.07 cm Doppler/Quantitative Measurements Mitral Valve MV Peak E-Wave: 1.45 m/s MV Peak A-Wave: 1.19 m/s P1/2t: 98 msec E/A Ratio: 1.22 Mean Velocity: 0.78 m/s Peak Gradient: 8.41 mmHg Mean Gradient: 2.94 mmHg Deceleration Time: 316.6 msec MV Area (PHT): 2.25 cm^2 Area (continuity): 2.09 cm^2 MV VTI: 49.55 cm MV Karel. Peak: 1.5 m/s Aortic Valve Peak Velocity: 2.94 m/s Mean Velocity: 1.92 m/s Peak Gradient: 34.47 mmHg Mean Gradient: 18.02 mmHg AV Area (continuity): 2.52 cm^2 AV VTI: 41.16 cm AV DVI: 0.68 LVOT Peak Velocity: 1.42 m/s Peak Gradient: 8.06 mmHg Mean Velocity: 1.01 m/s Mean Gradient: 4.64 mmHg LVOT Diameter: 2.18 cm LVOT VTI: 27.81 cm LVOT Area: 3.73 cm^2 LVOT SV:103.75 ml LVOT CO: 10.58 l/min LVOT CI: 4.68 l/min/m^2 Tricuspid Valve TR Velocity: 3.02 m/s TR Gradient: 36.52 mmHg Pulmonic Valve Peak Velocity: 2.97 m/s Peak Gradient: 35.22 mmHg Mean Velocity: 2.02 m/s Mean Gradient: 16.38 mmHg Procedure Note Interface, External Ris In - 10/03/2020 3:40 PM MOBILE HEAVY EQUIPMENT OPERATOR Transthoracic Echocardiography Report (TTE) Demographics Patient Name KODI MORAN Date of Study 10/03/2020 PAR[place] Gend er Male Visit Number [id number] Race Unknown Room Number 8A04 Number Date of 1945 Refe rring Physician 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 Clinical History HGB 8.7 HCT 27.4 % CAD DM ESRD HLD HTN RENAL FAILURE AVR BYPASS AORTO CORONARY LUCAS/SVG 09/27/20 Contrast Medium: Definity. Amount - 2 ml Height: 73 inches Weight: 101.6 kg (224 lbs) BSA: 2.26 m^2 BMI: 29.55 kg/m^2 HR: 102 bpm BP: 122/46 mmHg Summary Lower limits of normal overall left jonah tricular systolic function (LVEF 50-55%). Diastolic dysfunction is likely due to concomitant heart disease. s/p mechanical AVR. Prosthesis appears well-seated by available views. Trivial AI. AoV dimensionless obstructi ve index (DOI) is 0.68.Peak Grad 34.47 mmHg; Mean Grad 25.5 mmHg ( avera ged in setting of frequent ectopy) Minimally elevated Doppler gradient lik vinod due to increased flow. (AT = 65 ms). Estimated peak systolic PA pressure is 45-50 mmHg. Compared to previous study, Doppler gra dients have mildly increased. 3) Mild tricuspid regurgitation. Estima duane peak systolic PA pressure is 45-50 mmHg. Signature Findings Left Ventricle Normal left vent ricular chamber size. Normal wall thickness. Abnor mal septal wall motion in the setting of cardi ac surgery. Lower limits of normal overall left jonah tricular systolic function (LVEF 50-55%). Otherwi se segments contract normally. Diastolic dysfun ction is likely due to concomitant heart disease. Left Atrium LA size is mildl y enlarged (35-41 ml/m2) . Right Ventricle The right ventri cular chamber size and systolic function are wit hin normal limits. RV pacing wire i s visualized . Right Atrium RA size is mildl y dilated. RA pacing wire i s visualized . Atrial Septum Normal interatri al septum by available views. Aortic Valve s/p mechanical A VR. Prosthesis appears well-seated by available vie ws. Trivial AI. AoV dimensionless obstructive inde x (DOI) is 0.68.Peak Grad 34.47 mmHg; Mean Grad 25.5 mmHg. Minimally elevated Doppler gradient likely due to increased flow. (AT = 65 ms). Mitral Valve Mild MV leaflet thickening. Moderate mitral annular calcification. M diego gradient 2.9 mmHg at HR 89 bpm. Mild mitral regu rgitation. Tricuspid Valve Mild tricuspid r egurgitation. Estimated peak systolic PA pres sure is 45-50 mmHg. Pulmonic Valve Normal PV struct ure appears normal by available views. Pericardium No significant p ericardial effusion is visualized. IVC/SVC/PA/PV/Pleural The estimated RA pressure by IVC dynamics 5- 10 mmHg . L pleural effusion is suggested. Chambers/Structures Left Atrium LA Volume: 84.81 ml LA Area: 25.55 cm^2 LA Vol. Index: 38 ml/m^2 Left Ventricle LVIDd: 5.71 cm LVEDV:160.77 ml LV Septum Diastolic: 1 cm LV PW Diastolic: 0.96 cm LVEDV Samano's:175.57 ml LVESV Samano's:95.21 ml LVEF Samano's: 52.6 % LVEDVI: 78 ml/m^2 LVESVI: 42 ml/m^2 LVOT Diameter: 2.18 cm Right Ventricle RVOT VTI: 20.07 cm Doppler/Quantitative Measurements Mitral Valve MV Peak E-Wave: 1.45 m/s MV Pe ak A-Wave: 1.19 m/s P1/2t: 98 msec E/A R atio: 1.22 Mean Velocity: 0.78 m/s Peak Gradient: 8.41 mmHg Mean Gradient: 2.94 mmHg Decel eration Time: 316.6 msec MV Area (PHT): 2.25 cm^2 Area (continuity): 2.09 cm^2 MV VT I: 49.55 cm MV Karel. Peak: 1.5 m/s Aortic Valve Peak Velocity: 2.94 m/s Mean Velocity: 1.92 m/s Peak Gradient: 34.47 mmHg Mean Gradient: 18.02 mmHg AV Area (continuity): 2.52 cm^2 AV VTI: 41.16 cm AV DVI: 0.68 LVOT Peak Velocity: 1.42 m/s Pea k Gradient: 8.06 mmHg Mean Velocity: 1.01 m/s Gloria n Gradient: 4.64 mmHg LVOT Diameter: 2.18 cm LVO T VTI: 27.81 cm LVOT Area: 3.73 cm^2 LVO T SV:103.75 ml LVOT CO: 10.58 l/min LVO T CI: 4.68 l/min/m^2 Tricuspid Valve TR Velocity: 3.02 m/s TR Gradient: 36.52 mmHg Pulmonic Valve Peak Velocity: 2.97 m/s Peak Gradient: 35.22 mmHg Mean Velocity: 2.02 m/s Mean Gradient: 16.38 mmHg Performing Organization Address City/[facility]/Zipcode Phone Number [facility] MKCKESSON CPACS Platelet count (10/03/2020 11:50 AM MOBILE HEAVY EQUIPMENT OPERATOR)Only the most recent of2 resultswithin the time period is included. Pathologist Sig nature Platelets 118 (L) 150 - 450 K/CU MM [facility] Specimen Blood Narrative Performed At Sleep Lab Technician ID - [id number] [facility] Performing Organization Address City/[facility]/Zipcode Phone Number [facility] [address] [place] [address] CENTER XR chest 1 view portable / bedside (10/03/2020 7:35 AM MOBILE HEAVY EQUIPMENT OPERATOR)Only the most recent of11 resultswithin the time period is included. Specimen Narrative Performed At FINAL REPORT GE RIS RAD, CHEST, 1 VIEW, NON DEPT INDICATION: volume COMPARISON: Prior day's exam FINDINGS: Portable frontal view of the c hest. IMPRESSION: Support Lines: Right IJ pulmonary arteri al pressure catheter has been removed. The sheath remains in place. Lungs and pleura: No significant change in the interstitial edema. Small left effusion. No pneumothorax. Heart and mediastinum: Stable contours. Stable surgical changes. Additional findings: None. Signed: JR Purcell Robert MD Report Verified Date/Time: 10/03/2020 09:33:43 Reading Location: [place] Reading Room Procedure Note Interface, External Ris In - 10/03/2020 9:35 AM MOBILE HEAVY EQUIPMENT OPERATOR FINAL REPORT RAD, CHEST, 1 VIEW, NON DEPT INDICATION: volume COMPARISON: Prior day's exam FINDINGS: Portable frontal view of the c hest. IMPRESSION: Support Lines: Right IJ pulmonary arteri al pressure catheter has been removed. The sheath remains in place. Lungs and pleura: No significant change in the interstitial edema. Small left effusion. No pneumothorax. Heart and mediastinum: Stable contours. Stable surgical changes. Additional findings: None. Signed: JR Purcell Robert MD Report Verified Date/Time: 10/03/2020 0 9:33:43 Reading Location: [place] Reading Room Performing Organization Address City/State/Zipcode Phone Number RIS Calcium, Ionized (10/02/2020 4:43 AM MOBILE HEAVY EQUIPMENT OPERATOR)Only the most recent of19 results within the time period is included. Pathologist Sig nature Calcium, Ion 1.40 (H) 1.12 - 1.27 mmol/L [facility] pH, Blood 7.36 [facility] Specimen Blood Performing Organization Address City/[facility]/Zipcode Phone Number [facility] [address] [place] [address] CENTER pH, arterial (10/02/2020 4:42 AM MOBILE HEAVY EQUIPMENT OPERATOR)Only the most recent of7 resultswithin the time period is included. Pathologist Sig nature pH, Arterial 7.36 7.35 - 7.45 [facility] [place] Specimen Blood, Arterial Performing Organization Address City/[facility]/Zipcode Phone Number [facility] [address] [place] [address] [place] PT/aPTT (10/02/2020 4:41 AM MOBILE HEAVY EQUIPMENT OPERATOR)Only the most recent of3 resultswithin the time period is included. Pathologist Sig nature Protime 21.7 (H) 11.9 - 14.2 seconds [facility] INR 1.95 <=5.90 [facility] PTT 86.4 (H) 22.5 - 36.0 seconds [facility] Specimen Blood Narrative Performed At Effective 03/11/2019: PT Reference Range [facility] Change New: 11.9-14.2 Previous: 11.7-14.7 RECOMMENDED COUMADIN/WARFARIN INR THERAPY RANGES STANDARD DOSE: 2.0-3.0 Includes: PROPHYLAXIS for venous thrombosis, systemic embolization; TREATMENT for venous thrombosis and/or pulmonary embolus. HIGH RISK: Target INR is 2.5-3.5 for patients wiht mechanical heart valves. Performing Organization Address City/State/Zipcode Phone Number [facility] [address] [place] [address] [place] Thromboelastograph (TEG) (10/01/2020 12:04 PM MOBILE HEAVY EQUIPMENT OPERATOR)Only the most recent of2 resultswithin the time period is included. TEG Activated Clotting 5.2 4.0 - 7.0 [facility] Time minutes [facility] TE[facility] Fibrinogen 76.2 (H) 61.0 - 73.0 [facility] Activity degrees [facility] Platelet 73.0 (H) 55.0 - 65.0 MM [facility] Aggregation [facility]G Fibrinolysis 0.0 0.0 - 5.0 % [facility] TEG-H Activated 5.5 4.0 - 7.0 [facility] Clotting Time minutes [facility] TEG-H Fibrinogen 74.0 (H) 61.0 - 73.0 [facility] Activity degrees [facility] TEG-H Platelet 70.6 (H) 55.0 - 65.0 MM [facility] TEG-H Fibrinolysis 1.7 0.0 - 5.0 % [facility] Specimen Blood Performing Organization Address City/[facility] Phone Number [address] [address] CENTER Sodium (10/01/2020 10:48 AM MOBILE HEAVY EQUIPMENT OPERATOR)Only the most recent of6 resultswithin the time period is included. Pathologist Sig nature Sodium 134 (L) 136 - 145 meq/L [facility] Specimen Blood Narrative Performed At Sleep Lab Technician ID - MARC Miranda [facility] Performing Organization Address [facility] [place]/[facility] Phone Number [address] [address] CENTER Potassium (10/01/2020 10:48 AM MOBILE HEAVY EQUIPMENT OPERATOR)Only the most recent of14 resultswithin the time period is included. Pathologist Sig nature Potassium 4.6 3.5 - 5.1 meq/L [facility] Specimen Blood Narrative Performed At Sleep Lab Technician ID - MARC Miranda [facility] Performing Organization Address [facility] [place]/[facility] Phone Number [address] [address] CENTER Lactic Acid, Arterial (10/01/2020 4:00 AM MOBILE HEAVY EQUIPMENT OPERATOR)Only the most recent of9 results within the time period is included. Pathologist Sig nature Lactate, Art 1.0 0.5 - 2.2 mmol/L [facility] Specimen Blood, Arterial - Arterial line (physica l object) Narrative Performed At Sleep Lab Technician ID - SUGAR Marin [facility] Performing Organization Address [facility] [place]/[facility] Phone Number [address] [address] CENTER Fibrinogen (10/01/2020 4:00 AM MOBILE HEAVY EQUIPMENT OPERATOR)Only the most recent of3 resultswithin the time period is included. Pathologist Sig nature Fibrinogen 716 (H) 225 - 434 mg/dl [facility] Specimen Blood Performing Organization Address [facility] [place]/[facility]/Zipcode Phone Number [address] [address] CENTER Lactate dehydrogenase (LDH) (10/01/2020 4:00 AM MOBILE HEAVY EQUIPMENT OPERATOR) Pathologist Sig nature LDH 352 (H) 125 - 220 U/L [facility] Specimen Blood Narrative Performed At Sleep Lab Technician ID - SUGAR Marin [facility] Performing Organization Address [facility] [place]/[facility] Phone Number [address] [address] [place] Hepatic function panel (10/01/2020 4:00 AM MOBILE HEAVY EQUIPMENT OPERATOR)Only the most recent of2 results within the time period is included. Pathologist Sig nature Protein, Total 6.1 6.0 - 8.3 gm/dL [facility] Albumin 2.9 (L) 3.5 - 5.0 g/dL [facility] Total Bilirubin 1.2 0.2 - 1.2 mg/dL [facility] Bilirubin, Direct 0.8 (H) 0.1 - 0.5 mg/dL [facility] Alkaline Phosphatase 69 40 - 150 U/L [facility] AST 25 5 - 34 U/L [facility] ALT 17 6 - 55 U/L [facility] Specimen Blood Narrative Performed At Sleep Lab Technician ID - SUGAR Marin [facility] Performing Organization Address [facility] [place]/[facility] Phone Number [address] [address] [place] Blood gas, arterial (09/30/2020 2:53 AM MOBILE HEAVY EQUIPMENT OPERATOR)Only the most recent of17 results within the time period is included. Pathologist Sig nature pH, Arterial 7.41 7.35 - 7.45 [facility] pCO2, Arterial 43 35 - 45 mm Hg [facility] pO2, Arterial 137 (H) 80 - 90 mm Hg [facility] O2 Sat, Arterial 98.7 (H) 96.0 - 97.0 % [facility] HCO3, Arterial 27 21 - 29 mmol/L [facility] Base Excess, Arterial 1.9 -2.0 - 3.0 [facility] mmol/L [facility] Patient Temperature 37.1 [facility] FIO2 36.0 [facility] Specimen Blood, Arterial Performing Organization Address City/State/Zipcode Phone Number [facility] [address] [place] [address] CENTER ECG 12 lead (09/29/2020 8:37 PM MOBILE HEAVY EQUIPMENT OPERATOR)Only the most recent of2 resultswithin the time period is included. Specimen Narrative Performed At Ventricular Rate 105 BPM GE MUSE Atrial Rate 105 BPM QRS Duration 94 ms Q-T Interval 348 ms QTC Calculation(Bazett) 459 ms R Monroe -39 degrees T Monroe 93 degrees Sinus rhythm with frequent PACs Left axis deviation Incomplete right bundle branch block Minimal voltage criteria for LVH, may be normal variant T wave inversion lateral leads Abnormal ECG When compared with ECG of 26-SEP-2020 20 :49, PACs now seen ST no longer depressed in Inferior leads ST no longer elevated in aVR T wave inversion no longer evident in In ferior leads T wave inversion less evident in Lateral leads QT has shortened Confirmed by MD SAMUEL, RENETTA ([id number]) on 10/02/2020 12:15:30 PM Procedure Note Interface, External Ris In - 10/02/2020 12:15 PM MOBILE HEAVY EQUIPMENT OPERATOR Ventricular Rate 105 BPM Atrial Rate 105 BPM QRS Duration 94 ms Q-T Interval 348 ms QTC Calculation(Bazett) 459 ms R Monroe -39 degrees T Monroe 93 degrees Sinus rhythm with frequent PACs Left axis deviation Incomplete right bundle branch block Minimal voltage criteria for LVH, may be normal variant T wave inversion lateral leads Abnormal ECG When compared with ECG of 26-SEP-2020 20 :49, PACs now seen ST no longer depressed in Inferior leads ST no longer elevated in aVR T wave inversion no longer evident in In ferior leads T wave inversion less evident in Lateral leads QT has shortened Confirmed by MD SAMUEL, [facility] ([id number]) on 10/02/2020 12:15:30 PM Performing Organization Address City/[facility] Phone Number [facility] Potassium-Stat Lab (09/29/2020 2:57 PM MOBILE HEAVY EQUIPMENT OPERATOR)Only the most recent of15 results within the time period is included. Pathologist Sig nature Potassium 4.1 3.6 - 5.5 meq/L [facility] Specimen Blood, Arterial Performing Organization Address [facility] Phone Number [address] [address] [place] Sodium Na-Stat Lab (09/29/2020 2:57 PM MOBILE HEAVY EQUIPMENT OPERATOR)Only the most recent of15 results within the time period is included. Pathologist Sig formerly [facility] Sodium 136 136 - 145 meq/L [facility] Specimen Blood, Arterial Performing Organization Address [facility] Phone Number [address] [address] [place] Glucose-Stat Lab (09/29/2020 2:57 PM MOBILE HEAVY EQUIPMENT OPERATOR)Only the most recent of15 results within the time period is included. Pathologist Sig formerly [facility] Glucose 170 (H) 70 - 110 mg/dL [facility] Specimen Blood, Arterial Performing Organization Address [facility] Phone Number [address] [address] CENTER HGB/HCT (H&H)-Stat Lab (09/29/2020 2:57 PM MOBILE HEAVY EQUIPMENT OPERATOR)Only the most recent of15 resultswithin the time period is included. Pathologist Sig nature Hemoglobin 9.0 (L) 13.0 - 16.8 GM/DL [facility] Hematocrit 26.0 (L) 40.0 - 50.0 % [facility] Specimen Blood, Arterial Performing Organization Address City/State/Zipcode Phone Number [facility] [address] [place] [address] CENTER Prepare PLT (09/28/2020 11:54 PM MOBILE HEAVY EQUIPMENT OPERATOR) Pathologist Sig nature Unit ABO O Pos SAFETRACE TX UNIT NUMBER [id number] SAFETRACE TX Status TX_TIMEINCHART SAFETRACE TX Blood Bank Product PLATELETS SAFETRACE TX PRODUCT CODE [id number] SAFETRACE TX Unit ABO O Pos SAFETRACE TX UNIT NUMBER [id number] SAFETRACE TX Status TX_TIMEINCHART SAFETRACE TX Blood Bank Product PLATELETS SAFETRACE TX PRODUCT CODE [id number] SAFETRACE TX Performing Organization Address [facility] [place]/[facility] Phone Number SAFETRACE [place] Prepare plasma (09/28/2020 11:54 PM MOBILE HEAVY EQUIPMENT OPERATOR) Pathologist Sig nature Unit ABO A Pos SAFETRACE TX UNIT NUMBER [id number] SAFETRACE TX Status RETURNED FROM ISSUE SAFETRACE TX Blood Bank Product FFP SAFETRACE TX PRODUCT CODE [id number] SAFETRACE TX Unit ABO A Pos SAFETRACE TX UNIT NUMBER [id number] SAFETRACE TX Status RETURNED FROM ISSUE SAFETRACE TX Blood Bank Product FFP SAFETRACE TX PRODUCT CODE [id number] SAFETRACE TX Unit ABO A Pos SAFETRACE TX UNIT NUMBER [id number] SAFETRACE TX Status TX_TIMEINCHART SAFETRACE TX Blood Bank Product FFP SAFETRACE TX PRODUCT CODE [id number] SAFETRACE TX Unit ABO A Pos SAFETRACE TX UNIT NUMBER [id number] SAFETRACE TX Status TX_TIMEINCHART SAFETRACE TX Blood Bank Product FFP SAFETRACE TX PRODUCT CODE [id number] SAFETRACE TX Performing Organization Address City/[facility] Phone Number S[facility] [place] Prepare cryoprecipitate (09/28/2020 11:54 PM MOBILE HEAVY EQUIPMENT OPERATOR) Pathologist Sig nature Unit ABO A Pos SAFETRACE TX UNIT NUMBER [id number] SAFETRACE TX Status TX_TIMEINCHART SAFETRACE TX Blood Bank Product CRYOPRECIPITATE SAFETRACE TX PRODUCT CODE [id number] SAFETRACE TX Unit ABO O Pos SAFETRACE TX UNIT NUMBER [id number] SAFETRACE TX Status TX_TIMEINCHART SAFETRACE TX Blood Bank Product CRYOPRECIPITATE SAFETRACE TX PRODUCT CODE [id number] SAFETRACE TX Performing Organization Address [facility] [place]/[facility] Phone Number SAFETRACE [place] Prepare RBC (09/28/2020 11:54 PM MOBILE HEAVY EQUIPMENT OPERATOR) Pathologist Sig nature CROSSMATCH COMPATIBLE SAFETRACE TX Unit ABO A Pos SAFETRACE TX UNIT NUMBER [id number] SAFETRACE TX Status TX_TIMEINCHART SAFETRACE TX Blood Bank Product RED BLOOD CELLS SAFETRACE TX PRODUCT CODE [id number] SAFETRACE TX CROSSMATCH COMPATIBLE SAFETRACE TX Unit ABO A Pos SAFETRACE TX UNIT NUMBER [id number] SAFETRACE TX Status TX_TIMEINCHART SAFETRACE TX Blood Bank Product RED BLOOD CELLS SAFETRACE TX PRODUCT CODE [id number] SAFETRACE TX CROSSMATCH COMPATIBLE SAFETRACE TX Unit ABO A Pos SAFETRACE TX UNIT NUMBER [id number] SAFETRACE TX Status RETURNED FROM ISSUE SAFETRACE TX Blood Bank Product RED BLOOD CELLS SAFETRACE TX PRODUCT CODE [id number] SAFETRACE TX CROSSMATCH COMPATIBLE SAFETRACE TX Unit ABO A Pos SAFETRACE TX UNIT NUMBER [id number] SAFETRACE TX Status RETURNED FROM ISSUE SAFETRACE TX Blood Bank Product RED BLOOD CELLS SAFETRACE TX PRODUCT CODE [id number] SAFETRACE TX CROSSMATCH COMPATIBLE SAFETRACE TX Unit ABO A Pos SAFETRACE TX UNIT NUMBER [id number] SAFETRACE TX Status TX_TIMEINCHART SAFETRACE TX Blood Bank Product RED BLOOD CELLS SAFETRACE TX PRODUCT CODE [id number] SAFETRACE TX CROSSMATCH COMPATIBLE SAFETRACE TX Unit ABO A Pos SAFETRACE TX UNIT NUMBER [id number] SAFETRACE TX Status TX_TIMEINCHART SAFETRACE TX Blood Bank Product RED BLOOD CELLS SAFETRACE TX PRODUCT CODE [id number] SAFETRACE TX Performing Organization Address [facility] [place]/[facility] Phone Number SAFETRACE TX 2D Echo W/Doppler(CW/PW/Color) (09/28/2020 10:17 AM MOBILE HEAVY EQUIPMENT OPERATOR) Pathologist Sig nature Ejection Fraction [facility] HEARTLAB [facility]SS[facility] CPACS Specimen Narrative Performed At Transthoracic Echocardiography Report (T TE) [facility] Demographics Patient Name KODI MORAN Date of Study 09/28/2020 PAR[place] Gender Male Visit Number [id number] Race Unknown Room Number 2C23 Number Date of 1945 Referring Humera Melgar Physician MD Bryant Age 75 year(s) 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 Clinical History HGB 8.9 HCT 27.0 % , CAD, DM, ESRD, HLD, HTN s/p AVR s/p ACB x 4 (09/27/2020) Height: 73 inches Weight: 101.6 kg (224 lbs) BSA: 2.26 m^2 BMI: 29.55 kg/m^2 HR: 71 bpm BP: 124/46 mmHg Summary 1. Lower limits of normal overall left ventricular systolic function (LVEF 50-55%). Paradoxic septal motion likely related to pacing. Otherwise segments contract normally. 2. Normal RV size and function. 3. Mechanical AVR is well-seated. AoV dimensionless obstructive index (DOI) is 0.53.Peak Grad 48.7 mmHg; Mean Grad 22.0 mmHg. Grade 3 diastolic dysfunction (marked elevated LA pressure). 4. Mild calcific MS. Mean gradient 5mmHg at HR 70 bpm. MVA by CI 2.5 cm2. 5. Mild tricuspid regurgitation. Estimated peak systolic PA pressure is 50-55 mmHg . Previous Study No prior studies available for comparis on. Signature Findings Left Ventricle Normal left ventricular chamber size. Normal wall thickness. Apical septum appears dyssenergic may be related to conduction defect. Lower limits of normal overall left ventricular systolic function (LVEF 50-55%). Otherwise segments contract normally. Grade 3 diastolic dysfunction (marked elevated LA pressure). Left Atrium LA size is severely enlarged . Right Ventricle The right ventricular chamber size and systolic function are within normal limits. RV pacing wire is visualized . Right Atrium RA size is mildly dilated. RA pacing wire is visualized . Atrial Septum Normal interatrial septum by available views. Aortic Valve s/p mechanical AVR. Prosthesis appears well-seated by available views. AoV dimensionless obstructive index (DOI) is 0.51.Peak Grad 48.7 mmHg; Mean Grad 22.0 mmHg. Elevated doppler gradients may be due to high flow. AT = 70 ms. Mild AI. Mitral Valve Mild MV leaflet thickening. Mild calcific MS. Mean gradient 5mmHg at HR 70 bpm. MVA by CI 2.5 cm2. Moderate mitral annular calcification. Mild mitral regurgitation. Tricuspid Valve Mild tricuspid regurgitation. Estimated peak systolic PA pressure is 50-55 mmHg . Pulmonic Valve Normal PV structure appears normal by available view s. Pericardium No significant pericardial effusion is visualized. IVC/SVC/PA/PV/Pleural The estimated RA pressure by IVC dynamics 10mmHg . [facility] Circ Support Chambers/Structures Left Atrium LA Volume: 122.78 ml LA Area: 31.23 cm^2 LA Vol. Index: 54 ml/m^2 Left Ventricle LVIDd: 5.88 cm LVEDV:172.06 ml LVIDs: 4.37 cm LVESV:83.4 ml LV Septum Diastolic: 0.77 cm LVEF 2D Cube: 59 % LV PW Diastolic: 1.08 cm LVEDV Samano's:130.17 ml LV Length: 9.06 cm LVESV Samano's:62.36 ml LV FS: 25.7 % LVEF Samnao's: 56.7 % LVEDVI: 58 ml/m^2 LVOT Diameter: 2.23 cm LVESVI: 28 ml/m^2 LVEF: 51.5 % Doppler/Quantitative Measurements Mitral Valve MV Peak E-Wave: 1.78 m/s MV Peak A-Wave: 0.64 m/s E/A Ratio: 2.78 Mean Velocity: 0.91 m/s Peak Gradient: 12.67 mmHg Mean Gradient: 4.65 mmHg Deceleration Time: 284.2 msec Area (continuity): 2.51 cm^2 MV VTI: 45.49 cm MV Karel. Peak: 1.96 m/s Tissue Doppler E' Septal Velocity: 0.03 m/s E' Lateral Velocity: 0.05 m/s Aortic Valve Peak Velocity: 3.49 m/s Mean Velocity: 2.16 m/s Peak Gradient: 48.7 mmHg Mean Gradient: 21.96 mmHg AV Area (continuity): 1.98 cm^2 AV VTI: 57.79 cm AR P1/2t: 127.4 msec AV DVI: 0.51 LVOT Peak Velocity: 1.48 m/s Peak Gradient: 8.74 mmHg Mean Velocity: 0.92 m/s Mean Gradient: 4.11 mmHg LVOT Diameter: 2.23 cm LVOT VTI: 29.29 cm LVOT Area: 3.91 cm^2 LVOT SV:114.34 ml LVOT CO: 8.12 l/min LVOT CI: 3.59 l/min/m^2 Tricuspid Valve TR Velocity: 3.21 m/s TR Gradient: 41.28 mmHg Procedure Note Interface, External Ris In - 09/28/2020 7:35 PM MOBILE HEAVY EQUIPMENT OPERATOR Transthoracic Echocardiography Report (TTE) Demographics Patient Name KODI MORAN Date of Study 09/28/2020 [place] Gender Male Visit Number [id number] Race Unknown [facility] 2C23 Number Date of 1945 Referri konrad Hurtado MD Age 75 year(s) Sonogra pher Eli Dietz, [facility] Interpr eting MD Imani Dickson Fellow Ceasar Christensen MD Procedure Type of Study TTE procedure:2DECHO W DOPNATE R(CW/PW/COLOR) (FER) Indications:Acute Chest Pain/ Suspected CAD. Clinical History HGB 8.9 HCT 27.0 % , CAD, DM, ESRD, HLD, HTN s/p AVR s/p ACB x 4 (09/27/2020) Height: 73 inches Weight: 101.6 kg (224 lbs) BSA: 2.26 m^2 BMI: 29.55 kg/m^2 HR: 71 bpm BP: 124/46 mmHg Summary 1. Lower limits of normal overall left ventricular systolic function (LVEF 50-55%). Paradoxic septal motion likely related to pacing. Otherwise segments contract normally. 2. Normal RV size and function. 3. Mechanical AVR is well-seated. AoV d imensionless obstructive index (DOI) is 0.53.Peak Grad 48.7 mmHg; Mean Grad 22.0 mmHg. Grade 3 diastolic dysfunction (marked e levated LA pressure). 4. Mild calcific MS. Mean gradient 5mmH g at HR 70 bpm. MVA by CI 2.5 cm2. 5. Mild tricuspid regurgitation. Estima duane peak systolic PA pressure is 50-55 mmHg . Previous Study No prior studies available for comparis on. Signature Findings Left Ventricle Normal left vent ricular chamber size. Normal wall thickness. Apica l septum appears dyssenergic may be related to condu ction defect. Lower limits of normal overall l eft ventricular systolic function (LVEF 50-55%). O therwise segments contract normally. Grade 3 diastolic dysfunction (marked elevated LA pres sure). Left Atrium LA size is sever vinod enlarged . Right Ventricle The right ventri cular chamber size and systolic function are wit hin normal limits. RV pacing wire i s visualized . Right Atrium RA size is mildl y dilated. RA pacing wire i s visualized . Atrial Septum Normal interatri al septum by available views. Aortic Valve s/p mechanical A VR. Prosthesis appears well-seated by available vie ws. AoV dimensionless obstructive index (DOI) is 0 .51.Peak Grad 48.7 mmHg; Mean Grad 22.0 mmHg. [place] duane doppler gradients may be due to high flow. AT = 70 ms. Mild AI. Mitral Valve Mild MV leaflet thickening. Mild calcific MS. Mean gradient 5mmHg a t HR 70 bpm. MVA by CI 2.5 cm2. Moderate mitral annular calcification. Mild mitral regu rgitation. Tricuspid Valve Mild tricuspid r egurgitation. Estimated peak systolic PA pres sure is 50-55 mmHg . Pulmonic Valve Normal PV struct ure appears normal by available views. Pericardium No significant p ericardial effusion is visualized. IVC/SVC/PA/PV/Pleural The estimated RA pressure by IVC dynamics 10mmHg . Mech Circ Support Chambers/Structures Left Atrium LA Volume: 122.78 ml LA Area: 31.23 cm^2 LA Vol. Index: 54 ml/m^2 Left Ventricle LVIDd: 5.88 cm LVEDV:172.06 ml LVIDs: 4.37 cm LVESV:83.4 ml LV Septum Diastolic: 0.77 cm LVEF 2D Cube: 59 % LV PW Diastolic: 1.08 cm LVEDV Samano's:130.17 ml LV Length: 9.06 cm LVESV Samano's:62.36 ml LV FS: 25.7 % LVEF Samano's: 56.7 % LVEDVI: 58 ml/m^2 LVOT Diameter: 2.23 cm LVESVI: 28 ml/m^2 LVEF: 51.5 % Doppler/Quantitative Measurements Mitral Valve MV Peak E-Wave: 1.78 m/s M V Peak A-Wave: 0.64 m/s E /A Ratio: 2.78 Mean Velocity: 0.91 m/s P eak Gradient: 12.67 mmHg Mean Gradient: 4.65 mmHg D eceleration Time: 284.2 msec A renee (continuity): 2.51 cm^2 M V VTI: 45.49 cm MV Karel. Peak: 1.96 m/s Tissue Doppler E' Septal Velocity: 0.03 m/s E' Lateral Velocity: 0.05 m/s Aortic Valve Peak Velocity: 3.49 m/s Mean Velocity: 2.16 m/s Peak Gradient: 48.7 mmHg Mean Gradient: 21.96 mmHg AV Area (continuity): 1.98 cm^2 AV VTI: 57.79 cm AR P1/2t: 127.4 msec AV DVI: 0.51 LVOT Peak Velocity: 1.48 m/s Pea k Gradient: 8.74 mmHg Mean Velocity: 0.92 m/s Gloria n Gradient: 4.11 mmHg LVOT Diameter: 2.23 cm LVO T VTI: 29.29 cm LVOT Area: 3.91 cm^2 LVO T SV:114.34 ml LVOT CO: 8.12 l/min LVO T CI: 3.59 l/min/m^2 Tricuspid Valve TR Velocity: 3.21 m/s TR Gradient: 41.28 mmHg Performing Organization Address City/[facility] Phone Number [facility] CP[facility] Hepatitis B surface antigen (09/27/2020 9:47 PM MOBILE HEAVY EQUIPMENT OPERATOR) Pathologist Sig nature HBsAg Screen Nonreactive Nonreactive [facility] Specimen Blood Narrative Performed At Specimen is considered negative for HBsA g. [facility] Performing Organization Address [facility] [place]/[facility] Phone Number [address] [address] CENTER Glucose-STAT (09/27/2020 9:47 PM MOBILE HEAVY EQUIPMENT OPERATOR) Pathologist Sig nature Glucose 233 (H) 70 - 105 mg/dL [facility] Specimen Blood Narrative Performed At Sleep Lab Technician ID - BS [facility] Performing Organization Address [facility] [place]/[facility] Phone Number [address] [address] CENTER Manual Differential (09/27/2020 7:52 PM MOBILE HEAVY EQUIPMENT OPERATOR) % Neutros 83 % [facility] % Lymphs 4 % [facility] % Monos 4 % [facility] % Eos 3 % [facility] % Bands 6 0 - 10 % [facility] # Neutros 21.17 (H) 1.78 - 5.38 [facility] # Lymphs 1.02 (L) 1.32 - 3.57 [facility] # Monos 1.02 (H) 0.30 - 0.82 [facility] # Eos 0.77 (H) 0.04 - 0.54 [facility] # Bands 1.53 (H) 0.00 - 0.80 [facility] Total Counted 100 [facility] Platelet Morphology Normal [facility] Smudge Cells Present [facility] Anisocytosis 1+ few [facility] Poikilocytes 2+ moderate [facility] Ovalocytes 1+ few [facility] Bagdad Cells 1+ few [facility] Platelet Conc Adequate [facility] Specimen Blood Narrative Performed At Sleep Lab Technician DOROTA link [facility] User comments: Slide comments: Performing Organization Address City/State/Zipcode Phone Number [phone] [place] [address] CENTER Troponin I (09/27/2020 7:50 PM MOBILE HEAVY EQUIPMENT OPERATOR)Only the most recent of3 resultswithin the time period is included. Pathologist Sig nature Troponin I 11.20 (HH) 0.00 - 0.03 ng/mL [facility] Specimen Blood Narrative Performed At Troponin I (TnI) levels must be interpreted [facility] in the context of the presenting symptoms and the clinical findings. Elevated TnI levels indicate myocardial damage, but are not specific for ischemic heart disease. Elevated TnI levels are seen in patients with other cardiac conditions (including myocarditis and congestive heart failure), and slight TnI elevations occur in patients with other conditions, including sepsis, renal failure, acidosis, acute neurological disease, and persistent tachyarrhythmia. Sleep Lab Technician ID - BS Performing Organization Address City/State/Zipcode Phone Number [address] [phone] CENTER Transfuse plasma (09/27/2020 6:54 PM MOBILE HEAVY EQUIPMENT OPERATOR)Only the most recent of2 resultswithin the time period is included.Transfuse cryoprecipitate (09/27/2020 6:31 PM MOBILE HEAVY EQUIPMENT OPERATOR) Only the most recent of2 resultswithin the time period is included.Transfuse Leuko-Red PLT (09/27/2020 6:20 PM MOBILE HEAVY EQUIPMENT OPERATOR)Only the most recent of2 resultswithin the time period is included.Transfuse Leuko-Red RBC (09/27/2020 6:16 PM MOBILE HEAVY EQUIPMENT OPERATOR) Only the most recent of4 resultswithin the time period is included.GAMALIEL (09/27/2020 6:10 PM MOBILE HEAVY EQUIPMENT OPERATOR) Narrative Performed At Mehul Otero MD 09/27/2020 6:52 PM GAMALIEL Pre Intervention Summary: Post Intervention Summary: S/P ACB x4 Preserved LV and RV function. No changes in TV and MV function. 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 No change in perivalvular AI as compaired to preop cardiology exam No evidence of aortic dissection. No pericardial effusion. POC ACTIVATED CLOTTING TIME (09/27/2020 6:03 PM MOBILE HEAVY EQUIPMENT OPERATOR)Only the most recent of6 resultswithin the time period is included. Activated Clotting 120 sec [facility] Comment: [facility] : 74-137 seconds, Baseline CENTER : TESTED AT [address], [id number] : Sleep Lab Technician/Seconds Grader ID = [id number] for Vishnu Saleh Specimen Blood Performing Organization Address City/[facility]/Zipcode Phone Number [address] [address] CENTER ABORH, manual (09/27/2020 12:06 PM MOBILE HEAVY EQUIPMENT OPERATOR) Pathologist Sig nature ABO Grouping A [facility] Rh Factor POS [facility] Specimen Blood Performing Organization Address City/[facility]/Zipcode Phone Number [address] , [place] [phone] Type and screen, automated (09/27/2020 11:52 AM MOBILE HEAVY EQUIPMENT OPERATOR) Pathologist Sig nature ABO/RH AUTOMATED A POSITIVE [facility] Ab Scrn NEGATIVE [facility] Specimen Blood Performing Organization Address [facility] [place]/[facility]/Zipcode Phone Number [address] [address] Hemoglobin A1c (09/27/2020 11:52 AM MOBILE HEAVY EQUIPMENT OPERATOR) Pathologist Sig nature Hemoglobin A1C 6.1 4.3 - 6.1 % [facility] Specimen Blood Performing Organization Address [facility] [place]/[facility] Phone Number [address] [address] CENTER B-type Natriuretic Factor (BNP) (09/27/2020 5:05 AM MOBILE HEAVY EQUIPMENT OPERATOR) Pathologist Sig nature BNP 4,553 (H) 0 - 100 pg/mL [facility] Specimen Blood Narrative Performed At Sleep Lab Technician ID - [id number] [facility] Performing Organization Address [facility] [place]/[facility] Phone Number [facility] [address] [phone] Lipid panel (09/27/2020 5:05 AM MOBILE HEAVY EQUIPMENT OPERATOR) Pathologist Sig nature Triglycerides 120 mg/dL [facility] Cholesterol 106 mg/dL [facility] HDL 24 mg/dL [facility] LDL Calculated 58 mg/dL [facility] Specimen Blood Narrative Performed At Triglyceride Reference Range: [facility] Low Risk <150 Borderline 150-199 High Risk 200-499 Very High Risk >=500 Cholesterol Reference Range: Low Risk <200 Borderline 200-239 High Risk >240 HDL Cholesterol Reference Range: Low Risk >=60 High Risk <40 LDL Cholesterol Reference Range: Optimal <100 Near Optimal 100-129 Borderline 130-159 High 160-189 Very High >=190 Sleep Lab Technician ID - EVELIA [place] Performing Organization Address City/[facility]/Zipcode Phone Number [facility] [address] [place] [address] CENTER Comprehensive metabolic panel (09/26/2020 8:41 PM MOBILE HEAVY EQUIPMENT OPERATOR) Protein, Total 7.4 6.0 - 8.3 [facility] gm/dL [facility] Albumin 3.5 3.5 - 5.0 [facility] g/dL [facility] Alkaline 61 40 - 150 U/L [facility] Phosphatase [facility] Total Bilirubin 1.1 0.2 - 1.2 [facility] mg/dL [facility] Sodium 137 136 - 145 [facility] meq/L [facility] Potassium 5.4 (H) 3.5 - 5.1 [facility] meq/L [facility] Chloride 100 98 - 107 [facility] meq/L [facility] CO2 18 (L) 22 - 29 meq/L [facility] BUN 81 (H) 7 - 21 mg/dL [facility] Creatinine 11.31 (H) 0.57 - 1.25 [facility] mg/dL [facility] Glucose 133 (H) 70 - 105 [facility] mg/dL [facility] Calcium 9.9 8.4 - 10.2 [facility] mg/dL [facility] AST 18 5 - 34 U/L [facility] ALT 20 6 - 55 U/L [facility] EGFR 4Comment: mL/min/1.73 [facility] ESTIMATED GFR IS sq [facility] NOT [facility] CREATININE CLEARANCE IN PREDICTING GLOMERULAR FILTRATION RATE. ESTIMATED GFR IS NOT APPLICABLE FOR DIALYSIS PATIENTS. Specimen Blood Narrative Performed At Sleep Lab Technician ID - [id number] [facility] Performing Organization Address City/[facility]/Zipcode Phone Number [facility] [address] [place] [address] CENTER EKG-SCANNED (09/26/2020) Narrative Performed At This result has an attachment that is no t available. Ordered by an unspecified provider. VASCULAR DIAGRAM -SCAN (09/26/2020) Narrative Performed At This result has an attachment that is no t available. Ordered by an unspecified provider. CARDIAC CATH REPORT - SCAN (09/26/2020) Narrative Performed At This result has an attachment that is no t available. Ordered by an unspecified provider. after 11/16/2019 [facility] [address] [address] Advance Directives For more information, please contact: [phone] Code Status Date Activated Date Inactivated Comments Full Code 09/26/2020 5:52 PM 10/11/2020 2:58 AM This code status was determined by: Patient
--- OUTSIDE RECORDS SUMMARY | 2020-11-16 16:23 | XMS REPORT | Continuity of Care Document ---
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 NONRHEUMATIC AORTIC Active [facility] (VALVE) STENOSIS 018 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 [place], OPID [facility] BENIGN PROSTATIC Active [place] HYPERTROPHY WITH 015 Geremias d OBSTRU Benign prostatic Active Problem Data Medical hypertroph with 014 1 migrated Grou p, outflow obstruction from [facility] (disorder) [facility] on 03/12/15. Center,M H OPID [facility] Finding of frequency Active Problem Data Medical of urination (finding) 014 1 migrate d Group, from [facility] on 03/12/15. Center,M H OPID [facility] Glycosuria (finding) Active Problem Data Medical 014 1 migrated Group, from [facility] on 03/12/15. Center,M H OPID [facility], [facility] Microscopic hematuria Active Problem Data Medical (disorder) 014 1 migrated Group, from [facility] on 03/12/15. Center,M H OPID [facility], [facility] Metabolic syndrome X Active Problem Data Medical (disorder) 013 1 migrated Group, from [facility] on 03/12/15. Center,M H OPID [facility] Mixed hyperlipidemia Active Problem Data Medical (disorder) 013 1 migrated Group, from [facility] on 03/12/15. Center,M H OPID [facility] hyperlipidemia(Confirm Active Problem Sugar ed) 010 5 Land hypertension(Confirmed Active Problem Sugar ) 010 5 [place] Hypertension Active Problem PrimeCa re 4 Med Group Hyperlipemia Active Problem PrimeCa re 4 Med Group Chronic kidney Active Problem Prime Care disease, stage III 4 M ed Group Acute ethmoidal Active Diagnosis Prim eCare sinusitis 3 Med Group Backache (finding) Resolved Problem Rust Medical 1 Group,[facility], OPID [place],[facility] Benign prostatic Active Problem Medical hyperplasia (disorder) 1 Group,[facility], OPID [facility] Chronic back pain Active Problem Medical (disorder) 1 Group,[facility], OPID [facility] Chronic renal Active Problem Med ical impairment (disorder) 1 Group,[facility], OPID [facility], [facility] Chronic kidney disease Active Problem Data Medical stage 3 (disorder) 1 migrated Brown holly from [facility] on 03/12/15. Center,M H OPID [facility], [facility] Diabetes mellitus type Active Problem Medical 2 (disorder) 1 Group,M H [facility], OPID [facility], [facility] Essential hypertension Active Problem Data Medical (disorder) 1 migrated Group, from [facility] on 03/12/15. Center,M H OPID [facility], [facility] Hypertensive disorder, Active Problem Medical systemic arterial 1 Gr oup,[facility] (disorder) ,[facility], OPID [facility], [facility] Hypogonadism Active Problem Data Medi judith (disorder) 1 migrated Group, from [facility] on 03/12/15. Center,M H OPID [facility], [facility] Hypokalemia (disorder) Active Problem Medical 1 Group,[facility], OPID [facility], [facility] Obesity (disorder) Active Problem Data Rust [facility] 1 migrated Group, from [facility] on 03/12/15. Center,M H OPID [facility], [facility] Pain (finding) Active Problem [facility] dical 1 Group,[facility], OPID [facility], [facility] Renal failure syndrome Active Problem Medical (disorder) 1 Group,[facility], OPID [facility], [facility] Seasonal allergic Active Problem Medical rhinitis (disorder) 1 Group,[facility], OPID [facility], [facility] Swelling of lower limb Resolved Problem Medical (finding) 1 Group,[facility], OPID [facility] Neoplasm of colon Active Problem Medical (disorder) 1 Group,[facility], OPID [facility] Alteration in patterns Active Problem increas ed Medical of urinary elimination 1 frequen cy Group, (finding) [facility], OPID [facility] Diabetes mellitus Resolved Problem Medical (disorder) 1 Group,[facility] I ,[facility], [facility] End stage renal Resolved Problem [facility] edical disease (disorder) 1 G holly,ONEALI ,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 Atherosclerosis of [facility] aorta Medical Center Other nonspecific [facility] abnormal finding of [address] [place] [address] lung field Center Umbilical hernia [facility] without obstruction or [address] [place] [address] gangrene Center Bilateral inguinal [facility] hernia, without 9 Medi judith obstruction or Cente r gangrene, not specified as recurrent 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) Medical Center Nicotine dependence, [facility] cigarettes, [address] [place] [address] uncomplicated Center 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 specified parts [address] [place] [address] of digestive tract C enter 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 status 9 [facility] Pupillary abnormality, [facility] left eye 7 Hypercholesterolemia Active Problem [facility] (disorder) 7 Hyperlipidemia Active Problem [facility] (disorder) 7 BPH W URINARY OBS/LUTS Active [facility] Medications Medication Details Route Status Patient Ordering Order Source Instructions Provider Date warfarin 5 mg 5 mg = 1 tab, Active 02/20/ MH M edical oral tablet PO, Daily, # 30 2020 Grou p tab, 0 Refill(s) Cephalexin 250 250 mg = 1 cap, Active M H Medical MG Oral Capsule PO, BID, start 2019 G roup [Keflex] the day before scope procedure, X 3 day, # 6 cap, 0 Refill(s), Pharmacy: [facility]/pharmacy #[id number] Ciprofloxacin 500 mg = 1 tab, [...] 0.4 0.4 mg = 1 cap, Active H [place] mg oral capsule PO, Daily, [...] mg 50 mg = 1 tab, Active [place] oral tablet, PO, Q12H, # 60 2019 Medi judith extended release tab, 0 Center Refill(s) gabapentin 100 100 mg = 1 cap, Active H [place] MG Oral Capsule PO, Q12H, # 60 2019 edical cap, 0 Center Refill(s) gabapentin 300 300 mg, 1 cap, Inactive H [place] MG Oral Capsule Route: PO, Drug 2019 Medical form: CAP, Center Daily, Dosing Weight 116.534, kg, Start date: 11/25/18 9:00:00 ABRASIVE GRADER HELPER, Duration: 30 day, Stop date: 12/24/18 9:00:00 CDT Colchicine Notes: 0.3 mg = Inactive [place] 1/2 x 0.6 mg 2019 [facility] tab Center Warfarin Notes: Nurse to Inactive [place] as ensure 2019 Medical documentation Center of patient education per anticoagulation policy. Avoid large intake of vitamin-K containing foods diet. (Same As: Coumadin) WASTE: F/P - P Waste Black; E - P Waste Black DME Addition #1 See Active [place] Instructions, 2019 [facility] INR Center Therapeutic level: INR 2-3, [...] mg oral tablet Route: PO, Drug Active 2018 M edical form: TAB, BID, Center Dosing Weight 116.534, kg, Start date: 11/21/18 17:00:00 ABRASIVE GRADER HELPER, Duration: 30 day, Stop date: 12/21/18 9:00:00 [...] [place] extended release PO, Daily, 2019 [facility] Dosing Weight Center 116.534, kg, Priority: NOW, Start date: 11/19/18 10:31:00 ABRASIVE GRADER HELPER, Duration: 30 day, Stop date: 12/19/18 9:00:00 ABRASIVE GRADER HELPER Fentanyl Notes: (Same Inactive Bassem as: Sublimaze) 2019 Medical Preservative Center free. Finasteride 5 mg, Route: No Longer [place] PO, Drug form: Active 2019 Medical TAB, Daily, Center Dosing Weight 116.534, kg, Start date: 11/19/18 9:00:00 ABRASIVE GRADER HELPER, Duration: 30 day, Stop date: 12/18/18 9:00:00 ABRASIVE GRADER HELPER Glucagon 1 mg, Route: No Longer Bassem IM, Drug form: Active 2018 Medical PDR/INJ, PRN, Center Dosing Weight 116.534, kg, PRN Blood Glucose Results, Start date: 11/19/18 7:58:00 ABRASIVE GRADER HELPER, Duration: 30 day, Stop date: 12/19/18 7:57:00 ABRASIVE GRADER HELPER Dextrose 50% 25 gm, 50 mL, No Longer Bassem Syringe Route: IVP, Active 2019 Medical Drug Form: INJ, Center Dosing Weight 116.534, kg, PRN, PRN Blood Glucose Results, Start date: 11/19/18 7:58:00 ABRASIVE GRADER HELPER, Duration: 30 day, Stop date: 12/19/18 7:57:00 ABRASIVE GRADER HELPER Insulin Lispro Notes: (Same No Longer Bassem [...] Oral Tablet Route: PO, Drug Active 2018 [facility] form: TAB, BID, Center Dosing Weight 116.534, kg, Start date: 11/18/18 21:00:00 ABRASIVE GRADER HELPER, Duration: 30 day, Stop date: 12/18/18 17:00:00 ABRASIVE GRADER HELPER sennosides, [facility] Notes: (Same No Longer H [place] 8.6 MG Oral as: Senokot) Active 2019 Medical Tablet Center atorvastatin Notes: (Same No Longer [place] as: Lipitor) Active 2019 Medical [place] heparin sodium, Notes: porcine No Longer [facility] porcine 2500 heparin Active 2019 [facility] UNT/ML Center Injectable Solution Cefazolin Notes: (Same as Inactive [place] Ancef) 2019 [facility] Simethicone Notes: (Same No Longer [place] as: Mylicon) Active 2019 [facility] Acetaminophen Notes: Max No Longer [place] acetaminophen Active 2018 Medical 4000 mg/day (4 Center gm/day). (Same as: Tylenol Extra Strength) Flomax Notes: (Same No Longer [place] As: Flomax) Active 2019 Medical "Do Not Crush" Center Finasteride Notes: (Same No Longer [place] as: Proscar) Active 2019 Medical "Do Not Crush" Center Women of childbearing age should not touch or handle broken tablets Oxycodone Notes: (Same No Longer [place] Hydrochloride 5 as: Roxicodone) Active 2019 Medical MG Oral Tablet Center gabapentin 100 Notes: (Same No Longer [facility] MG Oral Capsule as: Neurontin) Active 2019 [facility] pantoprazole Notes: Tablet Inactive [place] should not be 2019 Medical chewed or Center crushed. (Same as: Protonix) Docusate Notes: (Same No Longer Bassem as: Colace) (Do Active 2018 Medical Not Crush) Center Miralax Notes: Dissolve No Longer [place] as in 8 oz of Active 2019 Medical water or juice. Center (Same as: Miralax) Mupirocin 0.02 1 appl, Route: No Longer [place] MG/MG Topical NASAL, BID, Active 2019 Medica l Ointment Drug form: [place] OINT, Start date: 11/18/18 9:00:00 ABRASIVE GRADER HELPER, Duration: 5 day, Stop date: 11/22/18 17:00:00 ABRASIVE GRADER HELPER Aspirin 81 MG Notes: Do not No Longer [facility] Chewable Tablet crush or chew. Active 2018 edical (Same As: [place] Ecotrin) tramadol Notes: [facility] hydrochlor[facility] 50 exceed Active 2019 Medical MG Oral Tablet 400mg/day. Center (Same As: [facility]) Oxycodone Notes: (Same Inactive [facility] Hydrochloride 5 as: Roxicodone) 2019 Medical MG Oral Tablet [facility] Notes: Infuse Inactive [facility] over 15 minutes 2019 Medical Do not exceed [place] 4gm/day of acetaminophen MEDICATION WASTE Product Size: 1000 mg Product Wasted: ___ mg ocular lubricant Notes: (Same Inactive 11/18[facility] as: Lacri-Lube, 2019 [facility] Puralube, [place] Duratears Naturale, Artificial Tears, and Tears Again ) [facility] or = 50 kg, Inactive Bassem Start date: 2018 [facility] 11/18/18 [place] 0:00:00 ABRASIVE GRADER HELPER, Duration: 1 day, Stop date: 11/18/18 18:00:00 ABRASIVE GRADER HELPER albumin human 5% Notes: LOT#: No Longer [facility] intravenous Active 2019 Medica l solution Mfg: Center WASTE: F/P - Red; E -Red (Same as: Albuminar) "blood product derivative" Sodium Chloride 500 mL, 500 Inactive [facility] 0.9% (Bolus) IV ml/hr, Infuse 2019 Mt dical Over: 1 hr, [place] Route: IV, ONCE, Priority: STAT, Dosing Weight 116.534 kg, Start date: 11/17/18 23:23:00 ABRASIVE GRADER HELPER, Stop date: 11/17/18 23:23:00 ABRASIVE GRADER HELPER chlorhexidine Notes: (Same No Longer [facility] gluconate 1.2 As: Peridex) Active 2019 Medic al MG/ML Mouthwash [place] Insulin regular Notes: Final No Longer [place] 100 unit + Concentration Active 2019 Medical 1unit/1ml Center WASTE: F/P - Black; E - Municipal Trash [employer] Dextrose 50% 12.5 gm, 25 mL, No Longer [place] Syringe Route: IVP, Active 2019 Medical Drug Form: INJ, Center Dosing Weight 116.534, kg, PRN, PRN Blood Glucose Results, Start date: 11/17/18 19:36:00 ABRASIVE GRADER HELPER, Duration: 30 day, Stop date: 12/17/18 19:35:00 ABRASIVE GRADER HELPER Ofirmev Notes: Infuse Inactive [facility] over 15 minutes 2019 Medical Do not exceed Center 4gm/day of acetaminophen MEDICATION WASTE Product Size: 1000 mg Product Wasted: ___ mg chlorhexidine Notes: (Same No Longer [facility] gluconate 1.2 As: Peridex) Active 2019 Medic al MG/ML Mouthwash Center chlorhexidine Notes: (Same No Longer [facility] gluconate 1.2 As: Peridex) Active 2019 Medic al MG/ML Mouthwash Center Fentanyl Notes: (Same No Longer [facility] as: Sublimaze) Active 2019 [facility] Preservative Center free. Albuterol 0.833 Notes: (Same No Longer [place] MG/ML / as: Duoneb) Active 2019 [facility] Ipratropium Center Pendroy 0.167 MG/ML Inhalant Solution [DuoNeb] Magnesium Oxide 800 mg, Route: Inactive [facility] PO, PRN, Dosing 2019 Medical Weight 116.534, Center kg, PRN Abnormal Lab Result, FOR ICU USE ONLY, Start date: 11/17/18 18:26:00 ABRASIVE GRADER HELPER, Duration: 30 day, Stop date: 12/17/18 18:25:00 ABRASIVE GRADER HELPER Calcium 1 gm, Route: Inactive [facility] Gluconate IVPB, PRN, 2019 Medical Dosing Weight Center 116.534, kg, PRN Abnormal Lab Result, Start date: 11/17/18 18:26:00 ABRASIVE GRADER HELPER, Duration: 30 day, Stop date: 12/17/18 18:25:00 ABRASIVE GRADER HELPER, FOR ICU USE ONLY Calcium 500 mg, Route: Inactive [facility] Carbonate 500 MG PO, PRN, Dosing 2019 Medical Chewable Tablet Weight 116.534, Center kg, PRN Abnormal Lab Result, FOR ICU USE ONLY, Start date: 11/17/18 18:26:00 ABRASIVE GRADER HELPER, Duration: 30 day, Stop date: 12/17/18 18:25:00 ABRASIVE GRADER HELPER potassium 2 pkt, Route: Inactive [place] phosphate-sodium PO, Dosing 2019 [facility] judith phosphate 250 Weight 116.534, nter mg-280 mg-160 mg kg, PRN, PRN oral powder for Abnormal Lab reconstitution Result, FOR ICU USE ONLY, Start date: 11/17/18 18:26:00 ABRASIVE GRADER HELPER, Duration: 30 day, Stop date: 12/17/18 18:25:00 ABRASIVE GRADER HELPER Magnesium 2 gm, Route: Inactive Bassem Sulfate IVPB, PRN, 2019 Medical Dosing Weight Center 116.534, kg, PRN Abnormal Lab Result, Start date: 11/17/18 18:26:00 ABRASIVE GRADER HELPER, Duration: 30 day, Stop date: 12/17/18 18:25:00 ABRASIVE GRADER HELPER, FOR ICU USE ONLY potassium 15 mmol, Route: Inactive [place] phosphate IVPB, PRN, 2019 Medical Dosing Weight Center 116.534, kg, PRN Abnormal Lab Result, Start date: 11/17/18 18:26:00 ABRASIVE GRADER HELPER, Duration: 30 day, Stop date: 12/17/18 18:25:00 ABRASIVE GRADER HELPER, FOR ICU USE ONLY sodium phosphate 15 mmol, Route: Inactive Bassem IVPB, PRN, 2019 Medical Dosing Weight Center 116.534, kg, PRN Abnormal Lab Result, Start date: 11/17/18 18:26:00 ABRASIVE GRADER HELPER, Duration: 30 day, Stop date: 12/17/18 18:25:00 ABRASIVE GRADER HELPER, FOR ICU USE ONLY Potassium 20 mEq, Route: Inactive [place] as Chloride PO, Drug form: 2019 Medical ERTAB, PRN, Center Dosing Weight 116.534, kg, PRN Abnormal Lab Result, Start date: 11/17/18 18:26:00 ABRASIVE GRADER HELPER, Duration: 30 day, Stop date: 12/17/18 18:25:00 ABRASIVE GRADER HELPER, FOR ICU USE ONLY Stimate (ANES) 4 Route: IV, Drug Inactive [place] microgram Form: INJ, 2018 Medical Start date: Center 11/17/18 17:23:00 ABRASIVE GRADER HELPER, Stop date: 11/17/18 18:23:00 ABRASIVE GRADER HELPER protamine (ANES) Route: IV, Drug Inactive [place] 10 mg form: INJ, 2018 Medical Start date: [place] 11/17/18 17:06:00 ABRASIVE GRADER HELPER, Stop date: 11/17/18 18:06:00 ABRASIVE GRADER HELPER calcium chloride Route: IV, Drug Inactive [place] (ANES) form: INJ, 2018 Medical ONCE, Stop Center date: 11/17/18 17:03:00 ABRASIVE GRADER HELPER heparin (ANES) Route: IV, Drug Inactive Bassem form: INJ, 2018 Medical ONCE, Stop Center date: 11/17/18 15:08:00 ABRASIVE GRADER HELPER lidocaine (ANES) Route: IV, Drug Inactive Bassem form: INJ, 2018 Medical ONCE, Stop Center date: 11/17/18 15:03:00 ABRASIVE GRADER HELPER propofol (ANES) Route: IV, Drug Inactive Bassem form: INJ, 2018 Medical ONCE, Stop Center date: 11/17/18 14:44:00 ABRASIVE GRADER HELPER fentaNYL (ANES) Route: IV, Drug Inactive Bassem form: INJ, 2018 Medical ONCE, Stop Center date: 11/17/18 14:44:00 ABRASIVE GRADER HELPER rocuronium Route: IV, Drug Inactive [place] (ANES) form: INJ, 2018 Medical ONCE, Stop Center date: 11/17/18 14:44:00 ABRASIVE GRADER HELPER midazolam (ANES) Route: IV, Drug Inactive [place] form: SOLN, 2018 Medical ONCE, Stop Center date: 11/17/18 14:44:00 ABRASIVE GRADER HELPER ceFAZolin (ANES) Route: IV, Drug Inactive Bassem form: INJ, 2018 Medical ONCE, Stop Center date: 11/17/18 14:38:00 ABRASIVE GRADER HELPER norepinephrine Route: IV, Drug Inactive [place] (ANES) 10 form: INJ, 2018 Medical microgram Start date: [place] 11/17/18 14:35:00 ABRASIVE GRADER HELPER, Stop date: 11/17/18 15:35:00 ABRASIVE GRADER HELPER vancomycin Route: IV, Drug Inactive [place] (ANES) 1000 mg form: INJ, 2019 Medica l Start date: [place] 11/17/18 14:05:00 ABRASIVE GRADER HELPER, Stop date: 11/17/18 15:05:00 ABRASIVE GRADER HELPER tranexamic acid Route: IV, Drug Inactive Bassem (ANES) 10 mg form: INJ, 2018 Medical Start date: [place] 11/17/18 14:00:00 ABRASIVE GRADER HELPER, Stop date: 11/17/18 15:00:00 ABRASIVE GRADER HELPER Exparel Notes: (Same No Longer Bassem as: [...] mL 500, Start Center date: 11/17/18 13:40:00 ABRASIVE GRADER HELPER, Stop date: 11/17/18 14:40:00 ABRASIVE GRADER HELPER Isolyte S PH 7.4 Route: IV, Inactive Bassem (ANES) 1000 mL Total Volume: 2019 Med ical 1,000, Start Center date: 11/17/18 13:16:00 ABRASIVE GRADER HELPER, Stop date: 11/17/18 14:16:00 ABRASIVE GRADER HELPER Amylases 64141 1 cap, PO, TID, No Longer Bassem UNT / 0 Refill(s) Active 2019 Medical Endopeptidases Center 01040 UNT / Lipase 22101 UNT Delayed Release Oral Capsule [Zenpep] rifaximin [...] 500 mg = 1 tab, No Longer [place] oxyhydroxide 500 PO, 0 Refill(s) Active 2018 Medical MG Chewable Center Tablet [Velphoro] gabapentin 300 300 mg = 1 cap, No Longer [place] MG Oral Capsule PO, Daily, # 90 Active 2018 Medical cap, 0 Center Refill(s) Misc Medication 200 mL, Inactive [facility] Soln-IV, IV, 2017 Once, first dose 07/29/17 13:03:00 CDT, stop [...] = 2 mL, Inactive [facility] Injection, IV, 2017 Once, first dose 07/29/17 12:43:00 CDT, stop date 07/29/17 12:43:00 CDT Ethyl Chloride 1 1 sprays, Inactive [facility] ML/ML Topical Carpenter, TOP, 2017 [place] Once, first dose 07/29/17 12:00:00 CDT, stop [...] Renal Disease Misc Medication 200 mL, Inactive [facility] Soln-IV, [...] 1 1 sprays, Inactive [facility] ML/ML Topical Carpenter, TOP, 2017 [place] Once, first dose 07/15/17 10:00:00 CDT, stop date 07/15/17 10:00:00 CDT Povidone-Iodine 1 drops, Soln, Inactive [facility] 50 MG/ML Eye-Operative, 2016 Ophthalmic Once, first Solution dose 07/15/17 [Betadine] 10:00:00 CDT, stop date 07/15/17 10:00:00 CDT NS 500 mL 500 mL, IV, 75 Inactive [facility] mL/hr, start 201607/15/17 9:58:00 CDT Phenylephrine 1 drops, Soln, Inactive [facility] Hydrochloride 25 Eye-Operative, 2017 MG/ML Ophthalmic q5min, order Solution duration: 3 doses, first dose 07/15/17 9:45:00 CDT, stop date 07/15/17 9:59:00 CDT moxifloxacin 5 1 drops, Soln, Inactive U SPI MG/ML Ophthalmic Eye-Operative, 2016 Solution q5min, order duration: 3 doses, first dose 07/15/17 9:45:00 CDT, stop date 07/15/17 9:59:00 CDT Tropicamide 10 1 drops, Soln, Inactive 10/02/ U SPI MG/ML Ophthalmic Eye-Operative, 2017 Solution [...] or Pain Lidocaine joaquin, TOP, TID, Active [facility] Hydrochloride 0 Refill(s) 2017 0.005 MG/MG [...] Ondansetron Notes: (Same Inactive Sug ar as: Shiala) 2014 MEDICATION WASTE Product Size: 4 mg [...] Notes: (Same Inactive [place] as: Sublimaze) 2014 [facility] Preservative free. Ketorolac 4 days Inactive S[place] r MEDICATION 2014 WASTE Product Size: 30 mg Product Wasted: ___ mg Morphine Notes: (Same Inactive [place] as:MORPhine 2014 [facility] Sulfate) Hydromorphone Notes: (Same Inactive S [...] Inactive S ugar 325 MG / as: Mobile 2014 Hydrocodone 325/5) Do not Bitartrate 5 [...] Clonidine 1 patch, TOP, 0 Active [place] 0.37277 MG/HR Refill(s) 2014 Transdermal Patch Crestor PO, Bedtime, 0 Active [place] Refill(s) 2014 ALFUZOSIN ER ALFUZOSIN ER No Longer S ugar 10MG TAB 10MG TAB, [address] [facility] tab, Drug form: MISC, Route: PO, [...] 0.0014 MEQ/ML / 125 ml/hr, Active 2014 [facility] Potassium Infuse over: 8 Chloride 0.004 hr, Route: IV, MEQ/ML / Sodium Dosing Weight Chloride 0.103 124.318 kg, MEQ/ML / Sodium Total Volume: Lactate 0.028 1,000, Start MEQ/ML date: 11/08/14 Injectable 11:04:00, Solution Duration: 30 day, Stop date: 12/08/14 11:03:00 Ciprofloxacin 2 400 mg, Route: Inactive [place] MG/ML Injectable IVPB, [id number], 2014 Solution [Cipro] Dosing Weight 127.136, kg, [...] (Same No Longer [place] as:Levaquin) Active 2014 [facility] BD Posiflush SF Notes: (Same No Longer H [place] as: BD Active 2014 [facility] Posiflush) alfuzosin 10 mg 10 mg = 1 tab, No Longer [place] oral tablet, PO, Daily, # 30 Active 2014 Geremias d extended release tab, 0 Refill(s) montelukast 10 10 mg = 1 tab, No Longer [place] mg oral tablet PO, QPM, 0 Active 2014 [facility] Refill(s) metoprolol 50 mg = 1 tab, No Longer S ugar tartrate 50 mg PO, Daily, 0 Active 2014 [place] oral tablet Refill(s) Dutasteride 0.5 0.5 mg = 1 cap, No Longer [place] MG Oral Capsule PO, Daily, # 30 Active 2014 [place] [Avodart] cap, 0 Refill(s) pitavastatin 4 4 mg = 1 tab, No Longer 11/01/ H [place] MG Oral Tablet PO, Daily, [...] Source Given Updated pneumococcal Right completed Adotama [facility] 23-valent 5 deltoid Group, vaccine [facility], OPID [facility], [facility]-medrol 80mg completed [facility] 3 Group pneumococcal Left completed Quita [facility] 23-valent 0 deltoid Group, vaccine [facility], OPID [facility] e [place], [facility] Results Order Name Results Value Reference Date Interpretation Comments Penny rce Range URINE AND UA Color Yellow Yellow 09/03 [place] STOOL *NA* [place] (09/02/19 9:02 PM) URINE AND UA Turbidity Slight Clear 09/03 [place] STOOL *ABN* [facility] (09/02/19 9:02 PM) URINE AND UA Spec Grav 1.011 <=1.030 09/03 [place] ST[place]OL [place] URINE AND UA pH 8.0 5.0 - 8.0 09/03 [place] ST[place] URINE AND UA Protein >=300 Negative 09/03 [place] ST[place] mg/dL mg/dL [place] URINE AND UA Glucose 500 mg/dL Negative 09/03 [place] [facility] mg/dL [place] URINE AND UA Ketones Negative Negative 09/03 [place] ST[place]OL *NA* /2018 [facility] (09/02/19 9:02 PM) URINE AND UA Bili Negative Negative 09/03 [place] ST[place] *NA* [facility] (09/02/19 9:02 PM) URINE AND UA Blood Small Negative 09/03 [place] ST[place] *ABN* [facility] (09/02/19 9:02 PM) URINE AND UA <=1.0 0.1 - 1.0 09/03 [place] STOOL Urobilinogen mg/dL /2018 [facility] URINE AND UA Nitrite Negative Negative [...] [place] Urine If Identification Or Sensitivity Required, [facility] Microbiology At [phone] Within 48 Hours. CHEM PANEL Magnesium Lvl 2.5 1.8 - 2.4 11/25 [facility] CHEM PANEL Phosphorus 6.1 2.5 - 4.5 11/25 [facility]2018 [facility] ELECTROLYTE AGAP 13.9 10.0 - 11/25 [facility] S 20.0 [facility] ELECTROLYTE eGFR 7 11/25 Result [facility] Comment: The Medical eGFR is Center [...] 3.9 3.5 - 5.1 11/25 [place] [facility] ELECTROLYTE Calcium Lvl 9.4 8.5 - 10.5 11/25 [facility] ELECTROLYTE Glucose Lvl 98 70 - 99 11/25 [facility] [place]2018 [facility] ELECTROLYTE Chloride Lvl 100 95 - 109 11/25 [facility] as [facility] ELECTROLYTE CO2 29 24 - 32 11/25 [facility] [place]2018 [facility] ELECTROLYTE Sodium Lvl 139 135 - 145 11/25 [facility]2018 [facility] ELECTROLYTE Creatinine 6.85 0.50 - 11/25 [facility] S Lvl 1.40 /2018 [facility] ELECTROLYTE BUN 50 7 - 22 11/25 [facility] [place]2018 [facility] HEMATOLOGY PTT 61.4 22.9 - 11/25 [place] 35.8 [facility] HEMATOLOGY INR 2.69 0.85 - 11/25 [place] 1.17 /2018 [facility] HEMATOLOGY PT 28.0 12.0 - 11/25 [place] 14.7 2019 [facility] HEMATOLOGY Basophils # 0.1 0.0 - 0.2 11/25 [facility] HEMATOLOGY Eosinophils # 0.7 0.0 - 0.5 11/25 [facility] HEMATOLOGY Monocytes # 0.9 0.0 - 0.8 11/25 [facility] HEMATOLOGY Lymphocytes # 1.9 1.0 - 5.5 11/25 [facility] xa [facility] HEMATOLOGY Neutrophils # 7.3 1.5 - 8.1 11/25 [facility] x[facility] HEMATOLOGY Eosinophils 6.0 0.0 - 4.0 11/25 [facility] HEMATOLOGY Monocytes 8.5 2.0 - 12.0 11/25 [facility] HEMATOLOGY Basophils 0.8 0.0 - 1.0 11/25 [facility] HEMATOLOGY Segs 67.0 45.0 - 11/25 [place] 75.0 2019 [facility] HEMATOLOGY Lymphocytes 17.7 20.0 - 11/25 [place] 40.0 2019 [facility] HEMATOLOGY WBC 11.0 3.7 - 10.4 11/25 [facility] HEMATOLOGY RBC 2.69 4.70 - 11/25 [place] 6.10 2019 [facility] HEMATOLOGY Hct 25.0 42.0 - 11/25 [place] 54.0 /2019 [facility] HEMATOLOGY Hgb 8.4 14.0 - 11/25 [place] 18.0 2019 [facility] HEMATOLOGY MCH 31.4 27.0 - 02 [place] 31.0 2019 [facility] HEMATOLOGY MCV 93.0 80.0 - 11/25 [place] 94.0 2019 [facility] HEMATOLOGY MPV 9.2 7.4 - 10.4 11/25 [facility] HEMATOLOGY Platelet 193 133 - 450 11/25 [facility] HEMATOLOGY RDW 15.4 11.5 - 11/25 [place] 14.5 2019 [facility] HEMATOLOGY MCHC 33.7 32.0 - 11/25 [place] 36.0 2019 [facility] CHEM PANEL Phosphorus 6.7 2.5 - 4.5 11/24 2018 [facility] CHEM PANEL Magnesium Lvl 2.6 1.8 - 2.4 11/24 [facility] CHEM PANEL eGFR 6 11/24 Result [...] PANEL CO2 28 24 - 32 11/[address] CHEM PANEL Calcium Lvl 9.6 8.5 - 10.5 11/24 [facility] CHEM PANEL BUN 57 7 - 22 11/[address] CHEM PANEL Creatinine 7.59 0.50 - 11/24 [facility] Lvl 1.40 [facility] CHEM PANEL Sodium Lvl 136 135 - 145 11/[address] CHEM PANEL Potassium Lvl 5.3 3.5 - 5.1 11/24 On license of [facility]2018 [facility] CHEM PANEL Chloride Lvl 98 95 - 109 11/[address] CHEM PANEL Glucose Lvl 103 70 - 99 11/[address] CHEM PANEL AGAP 15.3 10.0 - 11/24 [place] 20.0 [facility] HEMATOLOGY Lymphocytes # 2.3 1.0 - 5.5 11/[address] HEMATOLOGY Eosinophils 7.0 0.0 - 4.0 11/[address] HEMATOLOGY Neutrophils # 5.7 1.5 - 8.1 11/24 On license of [facility]2018 [facility] HEMATOLOGY Monocytes # 0.9 0.0 - 0.8 11/24 [facility]2018 [facility] HEMATOLOGY Basophils # 0.1 0.0 - 0.2 11/24 [place] [facility] HEMATOLOGY Eosinophils # 0.7 0.0 - 0.5 11/24 [place] /2018 [facility] HEMATOLOGY Lymphocytes 23.6 20.0 - 11/24 [place] 40.0 /2019 [facility] HEMATOLOGY Segs 59.3 45.0 - 11/24 [place] 75.0 /2019 [facility] HEMATOLOGY Monocytes 9.2 2.0 - 12.0 11/24 [facility] HEMATOLOGY Basophils 0.9 0.0 - 1.0 11/24 [facility] HEMATOLOGY MCV 93.1 80.0 - 11/24 [place] 94.0 /2019 [facility] HEMATOLOGY MCHC 34.3 32.0 - 11/24 [place] 36.0 /2019 [facility] HEMATOLOGY RDW 15.5 11.5 - 11/24 [place] 14.5 /2019 [facility] HEMATOLOGY Platelet 175 133 - 450 11/24 [facility] HEMATOLOGY WBC 9.7 3.7 - 10.4 11/24 [facility] HEMATOLOGY MCH 32.0 27.0 - 11/24 [place] 31.0 2019 [facility] HEMATOLOGY RBC 2.72 4.70 - 11/24 [place] 6.10 2019 [facility] HEMATOLOGY Hgb 8.7 14.0 - 11/24 [place] 18.0 2019 [facility] HEMATOLOGY Hct 25.3 42.0 - 11/24 [place] 54.0 /2019 [facility] HEMATOLOGY MPV 9.8 7.4 - 10.4 11/24 [facility] HEMATOLOGY INR 2.31 0.85 - 11/24 [place] 1.17 2019 [facility] HEMATOLOGY PTT 79.5 22.9 - 11/24 [place] 35.8 /2019 [facility] HEMATOLOGY PT 24.9 12.0 - 11/24 [place] 14.7 2019 [facility] CHEM PANEL eGFR 9 11/23 Result [...] PANEL BUN 39 7 - 22 11/23 2018 [facility] CHEM PANEL Creatinine 5.64 0.50 - 11/23 [place] Lvl 1.40 [facility] CHEM PANEL Glucose Lvl 115 70 - 99 11/23 [facility]2018 [facility] CHEM PANEL Sodium Lvl 140 135 - 145 11/23 [facility]2018 [facility] CHEM PANEL Calcium Lvl 9.4 8.5 - 10.5 11/23 [place] [facility] CHEM PANEL Chloride Lvl 100 95 - 109 11/23 [place] [facility] CHEM PANEL AGAP 13.7 10.0 - 11/23 [place] 20.0 [facility] CHEM PANEL Potassium Lvl 3.7 3.5 - 5.1 11/23 [place] [facility] CHEM PANEL CO2 30 24 - 32 11/23 2018 [facility] HEMATOLOGY MCV 93.6 80.0 - 11/23 [place] 94.0 [facility] HEMATOLOGY Hct 25.3 42.0 - 11/23 [place] 54.0 [facility] HEMATOLOGY MCHC 34.7 32.0 - 11/23 [place] 36.0 [facility] HEMATOLOGY RDW 15.7 11.5 - 11/23 [place] 14.5 [facility] HEMATOLOGY Platelet 165 133 - 450 11/23 2018 [facility] HEMATOLOGY MCH 32.5 27.0 - 02 [place] 31.0 [facility] HEMATOLOGY RBC 2.70 4.70 - 11/23 [place] 6.10 [facility] HEMATOLOGY Hgb 8.8 14.0 - 11/23 [place] 18.0 [facility] HEMATOLOGY MPV 9.8 7.4 - 10.4 11/23 2018 [facility] HEMATOLOGY WBC 7.8 3.7 - 10.4 11/23 [facility] HEMATOLOGY INR 1.62 0.85 - 11/23 [place] 1.17 [facility] HEMATOLOGY PTT 77.2 22.9 - 02 [place] 35.8 2019 [facility] HEMATOLOGY PT 18.9 12.0 - 11/23 [place] 14.7 [facility] HEMATOLOGY Monocytes # 0.7 0.0 - 0.8 11/23 [facility] HEMATOLOGY Eosinophils # 0.6 0.0 - 0.5 11/23 [facility] HEMATOLOGY Basophils # 0.1 0.0 - 0.2 11/23 [facility] HEMATOLOGY Lymphocytes # 1.7 1.0 - 5.5 11/23 [facility] HEMATOLOGY Segs 60.5 45.0 - 11/23 [facility] 75.0 [facility] HEMATOLOGY Lymphocytes 21.3 20.0 - 11/23 [facility] 40.0 [facility] HEMATOLOGY Neutrophils # 4.7 1.5 - 8.1 11/23 [facility] HEMATOLOGY Basophils 1.0 0.0 - 1.0 11/23 [facility] HEMATOLOGY Eosinophils 7.9 0.0 - 4.0 11/23 [place] [employer] [facility] HEMATOLOGY Monocytes 9.3 2.0 - 12.0 11/23 [facility] CHEM PANEL Phosphorus 7.6 2.5 - 4.5 11/22 [facility] CHEM PANEL Magnesium Lvl 2.5 1.8 - 2.4 11/22 [facility] PARATHYROID Ca Norm WB 1.15 1.05 - 11/22 [place] PROFILE 11.07 [facility] PARATHYROID Ca Ion WB 1.18 1.05 - 11/22 [place] PROFILE 11.07 [facility] PARATHYROID Ca Norm WB 1.13 1.05 - 11/20 [facility] PROFILE 11.07 [facility] PARATHYROID Ca Ion WB 1.12 1.05 - 11/20 [facility] PROFILE 11.07 [facility] BACTERIAL - MRSA by PCR Negative 11/19 [facility] SEROLOGY (11/19/18 3:06 AM) /2018 [facility] PARATHYROID Ca Norm WB 1.11 1.05 - 11/19 [place] PROFILE 11.07 [facility] PARATHYROID Ca Ion WB 1.10 1.05 - 02/ [place] PROFILE 1. [facility] IMMUNOLOGY Hep C Ab Negative 11/18 [place] *NA* /2018 [facility] (11/18/18 5:43 AM) [place] IMMUNOLOGY Hep Bs Ab 66.7 <=7.4 11/18 [place] mIU/mL /2018 [facility] IMMUNOLOGY Hep B Core Negative Negative 11/18 [place] IgM *NA* Medical (11/18/18 5:43 AM) Center IMMUNOLOGY Hep B Core Ab Negative Negative 11/18 [place] *NA* [facility] (11/18/18 5:43 AM) [place] IMMUNOLOGY Hep Bs Ag Negative Negative 11/18 [place] *NA* [facility] (11/18/18 5:43 AM) [place] BLOOD BANK RBC product Product available 11/17 [facility] RESULTS (11/17/18 10:45 AM) /2018 [facility] BLOOD BANK Platelet Product available 11/17 [facility] RESULTS product (11/17/18 10:45 AM) /2018 [facility] BLOOD BANK FFP product Product available 11/17 [facility] RESULTS (11/17/18 10:45 AM) [facility] BLOOD BANK Antibody Scrn Negative 11/14 [place] RESULTS (11/14/18 2:06 PM) [facility] BLOOD BANK ABO/Rh A POS 11/14 [facility] CHEM PANEL Globulin 3.9 2.7 - 4.2 11/14 [facility] CHEM PANEL A/G Ratio 0.9 0.7 - 1.6 11/14 [facility] CHEM PANEL Bili Direct 0.1 0.0 - 0.3 11/14 [place] [facility] CHEM PANEL Bili Indirect 0.4 0.0 - 1.0 11/14 [place] [facility] CHEM PANEL Alk Phos 91 39 - 136 11/14 [facility] CHEM PANEL Bili Total 0.5 0.2 - 1.3 11/14 [facility] CHEM PANEL Albumin Lvl 3.6 3.5 - 5.0 11/14 [facility] CHEM PANEL ALT 21 0 - 65 11/14 [facility] CHEM PANEL AST 12 0 - 37 11/14 [facility] CHEM PANEL Total Protein 7.5 6.4 - 8.4 11/14 [place] [facility] SPECIAL Hgb A1C 6.8 <=5.6 % 11/14 [facility] CHEMISTRY [facility] LABORATORY Blood 152 74 - 106 07/29 [facility] Glucose, Capillary LABORATORY Blood 139 74 - 106 07/15 [facility] Glucose, Capillary ELECTROLYTE Sodium Lvl 142 135 - 145 08/29 [place] ELECTROLYTE Chloride Lvl 108 95 - 109 08/29 [place] ELECTROLYTE Potassium Lvl 3.6 3.5 - 5.1 08/29 [place] ELECTROLYTE Creatinine 4.21 0.50 - 08/29 [place] Lvl 1.40 /2014 [place] ELECTROLYTE CO2 27 24 - 32 08/29 [place] ELECTROLYTE AGAP 10.6 10.0 - 08/29 [place] S 20.0 [place] ELECTROLYTE Calcium Lvl 9.0 8.5 - 10.5 08/29 [place] ELECTROLYTE BUN 47 7 - 22 08/29 [place] ELECTROLYTE Glucose Lvl 111 70 - 99 08/29 [place] ELECTROLYTE eGFR 13 08/29 Result [place] Comment: The [facility] eGFR is calculated using the CKD-EPI [...] by the estimated BMI. CHEM PANEL eGFR 11/01 <sup>1</sup>R [place] Comment: [...] 138 70 - 99 11/01 <sup>2</sup>I nterpretive [place] Data: Adult reference range values reflect the clinical guidelines
of the [place] [employer]. CHEM PANEL Sodium Lvl 143 135 - 145 11/01 [place] CHEM PANEL Creatinine 2.6 0.5 - [...] RBC 4.89 4.70 - 11/[address] [facility] HEMATOLOGY Hgb 14.3 14.0 - 11/01 [place] 18.0 [place] HEMATOLOGY WBC 10.6 3.7 - 10.4 11/01 [place] HEMATOLOGY RDW 12.7 11.5 - 11/01 [place] 14.5 /2014 [facility] HEMATOLOGY MCHC 33.1 32.0 - 11/01 [place] 36.0 /2014 [facility] HEMATOLOGY Hct 43.3 42.0 - 11/01 [place] 54.0 /2014 [facility] HEMATOLOGY MCV 88.6 80.0 - 11/01 [place] 94.0 /2014 [facility] HEMATOLOGY MCH 29.3 27.0 - 11/01 [place] 31.0 /2014 [facility] HEMATOLOGY Segs-Bands # 7.7 1.5 - 8.1 11/01 [place] /2014 [facility] HEMATOLOGY Basophils # 0.0 0.0 - 0.2 11/[address] [facility] HEMATOLOGY Monocytes # 0.5 0.0 - 0.8 11/[address] [facility] HEMATOLOGY Eosinophils # 0.2 0.0 - 0.5 11/[address] [facility] HEMATOLOGY Lymphocytes # 2.3 1.0 - 5.5 11/[address] [facility] HEMATOLOGY Segs 72.1 45.0 - 11/[address] [facility] HEMATOLOGY Lymphocytes 21.4 20.0 - 11/[address] [facility] HEMATOLOGY Monocytes 4.5 2.0 - 12.0 11/[address] [facility] HEMATOLOGY Basophils 0.3 0.0 - 1.0 11/[address] [facility] HEMATOLOGY Eosinophils 1.7 0.0 - 4.0 11/01 [place] /2014 [facility] SPECIAL Hgb A1C 7.1 <=5.6 % 11/[address] [facility] Pathology Reports No Data Provided for This Section Diagnostic Reports Report Value Date Source Chest 1view DX EXAM: XR CHEST 1 VIEW 11/21/2018 [facility] edical DATE: 11/21/2018 3:00 [facility] Center INDICATION: - abnormal lung sounds COMPARISON: [...] DX EXAM: XR CHEST 1 VIEW 11/19/2018 [facility] edical DATE: 11/19/2018 3:00 [employer] Center INDICATION: Abnormal chest sounds - abnomral [...] DX EXAM: XR CHEST 1 VIEW 11/18/2018 [facility] edical DATE: 11/18/2018 3:00 [employer] Center INDICATION: - s/p aortic valve replacement [...] Placement EXAM: XR CHEST 1 VIEW 11/17/2018 [facility] DX DATE: 11/17/2018 18:58 [employer] Center INDICATION: Tube placement - s/p AVR [...] DX EXAM: XR CHEST 2 VIEWS 11/14/2018 [facility] DATE: 11/14/2018 10:54 [employer] Center INDICATION: Severe Aortic Stenosis - Severe [...] distention. Abdominal pain for 2 years.. 10/30/2018 [facility] Comparison: None TECHNIQUE: Hepatobiliary scan is perfor [...] underlying biliary dyskinesia or chronic cholecystitis. SL: [id number] Heart/coronary art TAVR EXAM: CTA HEART WITH CONTRAST 10/01/2018 [facility] CTA DATE: 10/01/2018 Center INDICATION: - Aortic Stenosis. Aortic stenosis, TAVR candidate, CAD COMPARISON: None TECHNIQUE: Contrast imaging was perform ed on a Bety Aquilion 320 slice MDCT scanner, utilizing a single breath-hold, space at 750 mA and 120 kV. A preliminary thread puller study was obtained. Retrospective ECG gating wa s performed, at a heart rate of 63-69 bpm. Images were reformatted at 0.5 mm intervals and sent to the [employer] workstation for interpretation of 3D anatomic reconstructions, [...] bulky leaflet: No; right/left/noncoronary Coplanar TAVR angle: GREEK 2 CAU 2 Aortic annulus: 26.8 x [...] EXAM: CTA CHEST WITH CONTRAST 10/01/20 18 [facility] EXAM: CTA ABDOMEN AND PELVIS WITH CONTRAST Center DATE: 10/01/2018 8:34 [employer] INDICATION: - Aortic Stenosis COMPARISON: CT abdomen [...] to characterize, but statistically is most likely termite control representative of a simple renal cyst. Bladder: [...] contours in the kidneys bilaterally could be termite control representative of medical renal disease or scarring [...] [place] Heart Rate 68 09/03/2019 [facility] Respitory Rate 18 09/03/2019 [facility] Systolic (mm Hg) 135 09/03/2019 [place] Diastolic (mm Hg) 79 09/03/2019 [place] and Systolic (mm Hg) 130 09/03/2019 [place] Diastolic (mm Hg) 75 09/03/2019 [place] and Heart Rate 72 09/03/2019 [facility] Respitory Rate 16 09/03/2019 [facility] Temperature Oral (F) 98.1 F 09/03/2019 [place] Weight 106.5 09/03/2019 [facility] Systolic (mm Hg) 134 08/06/2019 [facility] Group [...] oup Temperature Oral (F) 97.5 F 07/28/2019 [facility] BMI Calculated 33.71 12/08/2018 [facility] Center Weight 115.909 12/08/2018 [facility] Height 185.42 cm 12/08/2018 [facility] Systolic (mm Hg) 152 11/25/2018 [facility] dical Center Diastolic (mm Hg) 67 11/[facility] Resp[facility] Rate 14 11/25/2018 [facility] Systolic (mm Hg) 110 11/25/2018 [facility] dical Center Diastolic (mm Hg) 56 11/25/[facility] Resp[facility] Rate 24 11/25/2018 [facility] Temperature Oral (F) 97.6 F 11/25/2018 [facility] Systolic (mm Hg) 145 11/25/2018 [facility] dical Center Diastolic (mm Hg) 64 11/25/2018 [facility] edical Center Respitory Rate 18 11/25/2018 [facility] Temperature Oral (F) 97.8 F 11/25/2018 [facility] Temperature Oral (F) 97.7 F 11/25/2018 [facility] Height 182.88 cm 11/18/2018 [facility] Height 182.88 cm 11/18/2018 [facility] Weight 116.534 11/17/2018 [facility] Height 182.88 cm 11/17/2018 [facility] BMI Calculated 34.84 11/17/2018 [facility] Center Weight 119.1 11/14/2018 [facility] Medica l Center BMI Calculated 36.62 11/14/2018 [facility] Center BMI Calculated 34.14 10/30/2018 [facility] Weight 117.364 10/30/2018 [facility] Height 185.42 cm 10/30/2018 [facility] Height 185.42 cm 10/28/2018 [facility] p BMI Calculated 34.77 10/28/2018 [facility] Gr oup Weight 119.545 10/28/2018 [facility] Grou p Systolic (mm Hg) 121 10/01/2018 [facility] dical Center Diastolic (mm Hg) 70 10/01/2018 [facility] edical [place] BMI Calculated 33.05 10/01/2018 [facility]ith Center Weight 113.636 10/01/2018 [facility] Height 185.42 cm 10/01/2018 [facility] Temperature Oral (F) 98.3 F [...] L and Respitory Rate 18 08/29/2015 [facility] Respitory Rate 16 08/29/2015 [facility] Systolic (mm Hg) 156 08/29/2015 [facility] [place] Diastolic (mm Hg) 76 08/29/2015 [facility] [place] and Systolic (mm Hg) 151 08/29/2015 [facility] [place] Diastolic (mm Hg) 72 08/29/2015 [facility] [place] and Respitory Rate 10 08/29/2015 [facility] Heart Rate 56 08/29/2015 [facility] Weight 116.091 08/29/2015 [facility] BMI Calculated 33.77 08/29/2015 [facility] Height 185.42 cm 08/27/2015 [facility] Temperature Oral (F) 98.2 F 11/10/2014 [place] Heart Rate 66 11/10/2014 [facility] Respitory Rate 20 11/10/2014 [facility] Diastolic (mm Hg) 70 11/10/2014 [facility] [place] and Systolic (mm Hg) 123 11/10/2014 [place] Temperature Oral (F) 98.0 F 11/10/2014 [place] Heart Rate 65 11/10/2014 [facility] Respitory Rate 18 11/10/2014 [facility] Systolic (mm Hg) 165 11/10/2014 [facility] [place] Diastolic (mm Hg) 88 11/10/2014 [facility] [place] and Heart Rate 61 11/10/2014 [facility] Respitory Rate 16 11/10/2014 [facility] Diastolic (mm Hg) 64 11/10/2014 [facility] [place] and Systolic (mm Hg) 130 11/10/2014 [place] Temperature Oral (F) 98.1 F 11/10/2014 [place] Height 185.42 cm 11/08/2014 [facility] BMI Calculated 36.09 11/08/2014 [facility] Weight 124.091 11/08/2014 [facility] Weight 124.318 11/08/2014 [facility] BMI Calculated 36.16 11/08/2014 [facility] Height 185.42 cm 11/01/2014 [facility] Temperature Oral (F) 96.8 F 05/12/2013 [facility] [...] Location Location Encounter Encounter Reason Attending ADM IA Stat Source Details Type Number For Provider Date Date Visit [facility] MEDICATION [id number] 05/12 05/12 [facility] UPDATE [id number] /[id number] e Me d Group [id number] Group [id number] [facility] MEDICATION [id number] 05/12 05/12 [facility] UPDATE [id number] /2012 e Me d Group 5-9dm8o9v21 Group 166 [facility] MEDICATION [id number]-08 05/12 05/12 [facility] UPDATE 92-81i6-d4s /2012 e Me d Group 7-7oxzz010j Group eb6 [facility] MEDICATION [id number] 05/12 05/12 [facility] UPDATE [id number] /2012 e Me d Group c-66h5c8jnq Group 21a [facility] MEDICATION [id number] 05/12 05/12 [facility] UPDATE [id number]-833 /2012 e Me d Group 9-1k255u8kq Group 834 [facility] Critical [id number] 05/25 05/25 [facility] Lab Result [id number] /2012 e Med Group 0-739r6c7tn Group 387 [facility] Critical [id number] 05/25 05/25 [facility] Result [id number] /2012 e Med Group 8-phq3e6yq9 Group 247 [facility] [id number] 05/25 05/25 [facility] Result [id number] /2012 e Med Group 2-2150m6t37 Group 78d [facility] [id number] 05/25 05/25 [facility] Result [id number] /2012 e Med Group e-m7u5b89nr Group f6e [facility] Critical [id number] 05/25 05/25 [facility] Result bf-4907-b3b /2012 e Med Group 1-a5998pgj0 Group 2df [facility] [id number] 05/25 05/25 [facility] Result [id number] /2012 e Med Group 7-428p1994d Group 107 [facility] Critical [id number] 05/25 05/25 [facility] Result [id number] /2012 e Med Group e-i145298vg Group c83 [facility] [id number] 05/25 05/25 [facility] Result [id number] /2012 e Med Group 4-3x83l997w Group 11e [facility] [id number] 05/25 05/25 [facility] Result [id number]-ba8 /2012 e Med Group a-w5g9e7e5s Group a70 [facility] Blood [id number] 05/29 05/29 [facility] pressure a3-476e-a85 /2012 e Med Group f-f7s447b59 Group 7f8 [facility] Blood [id number] 05/29 05/29 [facility] pressure 11-5ee1-i83 /2012 e Med Group 7-h212855o0 Group 3d1 [facility] Blood [id number] 05/29 05/29 [facility] pressure 0b-12d6-s85 /2012 e Med Group a-369i0b326 Group ef3 [facility] Blood [id number] 05/29 05/29 [facility] pressure ef-1b0f-85j /2012 e Med Group 3-964x92597 Group b44 [facility] Blood [id number] 05/29 05/29 [facility] pressure 7b-91u7-123 /2012 e Med Group 4-3e9690i55 Group 90e [facility] Blood [id number] 05/29 05/29 [facility] pressure a1-4321-8c1 /2012 e Med Group b-qb816ui6y Group f02 [facility] Blood [id number] 05/29 05/29 [facility] pressure d5-4396-931 /2012 e Med Group a-70sm62231 Group fbb [facility] Blood t3v4h0p4-km 05/29 05/29 [facility] pressure a0-80b7-k9w /2012 e Med Group d-6253b612w Group 0d5 [facility] LABS FAXED [id number] 06/08 06/08 [facility] 3d-4163-9f7 e Me d Group 2-u683t03d0 Group f8e [facility] FAXED [id number] 06/08 06/08 [facility] 8c-432f-8c e Me d Group 1-144h66213 Group b90 [facility]S FAXED [id number] 06/08 06/08 [facility] b5-4767-b56 /2012 e Me d Group 7-235497gq5 Group d86 [facility] FAXED [id number] 06/08 06/08 [facility] db-4fef-beb e Me d Group 0-0s143k857 Group e80 [facility]S FAXED [id number] 06/08 06/08 [facility] 3a-0zu1-4y0 /2012 e Me d Group c-3jwa8ai37 Group 81b [facility]S FAXED [id number] 06/08 06/08 [facility] 8d-4006-b72 /2012 e Me d Group a-3fblv0712 Group 6f3 [facility]S FAXED [id number] 06/08 06/08 [facility] 6a-4869-a93 /2012 e Me d Group e-041zav114 Group e09 [facility] RF: [id number] 06/09 06/09 [facility] Amlodipine df-9je5-653 /2012 e Med Group 10 mg 1-8b65a31k4 Group ce5 [facility] RF: [id number] 06/09 06/09 Pr [facility] Amlodipine 0b-4207-9eb e Med Group 10 mg d-02b61e942 Group 50d [facility] RF: [id number] 06/09 06/09 Pr [facility] Amlodipine 1c-44ac-948 /2012 e Med Group 10 mg [id number] Group 7fb [facility] RF: [id number] 06/09 06/09 Pr [facility] Amlodipine 7d-425a-903 /2012 e Med Group 10 mg b-ah0552ygd Group 1d1 [facility] RF: [id number] 06/09 06/09 Pr [facility] Amlodipine 63-6ow7-53v /2012 e Med Group 10 mg 3-pkw687kux Group 46f [facility] RF: [id number]-mg 06/09 06/09 Pr [facility] Amlodipine 4d-427c-bdd e Med Group 10 mg f-4x975k62m Group ce0 [facility] RF: [id number] 06/09 06/09 Pr [facility] Amlodipine 82-0yz7-922 /2012 e Med Group 10 mg d-[id number] Group da6 [facility] Amlodopine [id number] 09/07 09/07 [facility] Refill ab-[id number]-n53 /2012 e Me d Group 90day 3-09wy849u3 Group supply f1a [facility] Amlodopine [id number] 09/07 09/07 [facility] Refill [id number] /2012 e Me d Group 90day d-i3p48j3by Group supply 63f [facility] Amlodopine [id number] 09/07 09/07 [facility] Refill 39-4554-be e Me d Group 90day 7-lti58pc36 Group supply fcc [facility] Amlodopine [id number] 09/07 09/07 [facility] Refill [id number] /2012 e Me d Group 90day 4-0394656l1 Group supply f5d [facility] refill [id number] 10/05 10/05 Pr [facility] pravastatin cf-4926-bbe /2012 e Med Group d-t27268q5x Group 5f0 [facility] refill [id number] 10/05 10/05 Pr [facility] pravastatin e4-21s1-f1g /2012 e Med Group e-142k8j26n Group 5e4 [facility] refill [id number] 10/05 10/05 Pr [facility] pravastatin e3-5bg0-342 /2012 e Med Group c-14377a1y9 Group ce2 [facility] REFILL [id number] 12/09 12/09 Pr [facility] REQUEST [id number] e M ed Group 4-u6omnp465 Group 819 [facility] REFILL [id number] 12/09 12/09 Pr [facility] REQUEST 15-4aed- e M ed Group a-2b1o1nc56 Group 7c4 [facility] awe metrics [id number] 12/15 12/15 [facility] bf-4508-934 e Me d Group 7-97b14t7l2 Group 9cf [facility] [id number] [place] 11/09 11/10 [facility] [place] 3 /2014 [facility] [id number] [place] 05/17 Active [facility] 0 [place] Outpatient [id number] NURSE 06/06 Active [facility] 1 UROLOG [place] VISIT Outpatient [id number] CHAR 08/02 Active [facility] 3 [place] [facility] [id number] NURSE 08/08 Active [facility] 4 [place] [facility] Outpatient [id number] CHAR 08/25 Active [facility] 5 [facility] OBS Day [id number] Char 08/29 08/29 M [facility] [place] Surgery 5 [facility]patient [id number] MALLORY TEYKL 09/06 Act rajan [facility] Diag [id number] Mallory Teykl 09/19 09/20 [facility] Outpatient [id number] CHAR 09/27 Active [facility] 8 [place] Outpatient [id number] CHAR 01/02 Active [facility] 9 [place] [facility]patient [id number] CHAR 04/03 Active [facility] 0 [place] Outpatient [id number] CHAR 07/25 Active [facility] 1 [place] Outpatient [id number] CHAR 01/29 Active [facility] 2 [facility] Outpatient [id number] Rivera 07/15 07/15 Active [facility] /2016 Surgical [facility] Outpatient [id number] Rivera 07/15 07/15 [facility] Outpatient [id number] Rivera 07/29 07/29 Active [facility] /2016 Surgical [facility] Outpatient [id number] Rivera 07/29 07/29 [facility] /2016 Surgical [facility] Outpatient [id number] ROBINSON PAULETTE07/30 Acti ve [facility] [place] Outpatient [id number] 08/06 Acti ve [facility] Phone [id number] 02/03 02/05 Urology [facility] Outpatient [id number] ROBINSON CALDWELL 02/11 Acti ve [facility] Outpatient [id number] Robinson Caldwell 02/11 02/12 Urology [facility] Outpatient [id number] ROBINSON CALDWELL 08/19 Acti ve [facility] [place] Outpatient [id number] ROBINSON CALDWELL 08/19 Acti ve [facility] [id number] Robinson Caldwell 08/19 08/19 Urology Pre-Reg [facility] Ambulatory [id number] Robinson Caldwell 08/19 08/19 Urology Pre-Reg [facility] Outpatient [id number] Liborio 10/01 10/02 [facility] 4 Jag[facility] Outpatient [id number] ROBINSON CALDWELL 10/28 Acti ve [facility] [id number] Robinsontrena Caldwell 10/28 10/29 Urology [facility] Outpatient [id number] Cindy 10/30 10/31 [facility] 7 [facility] Inpatient [id number] Neema 11/17 11/25 [facility] [place] 6 [facility] Outpatient [id number] Neema 12/08 12/09 [facility] 9 [facility] Phone [id number] 06/30 07/02 Urology Message [facility] Outpatient [id number] Robinson Caldwell 07/28 Acti ve [facility] [id number] Robinsontrena Caldwell 07/28 07/29 Urology [facility] Outpatient [id number] Robinsontrnea Caldwell 08/06 Acti ve [facility] [id number] Robinson [place] 08/06 08/07 [facility] Emergency [id number] Rolf 09/03 09/03 [facility] [place] 2 [facility] Outpatient [id number] Mallory Teykl 09/07 Act rajan [facility] [id number] Mallory Teykl 09/07 09/08 Urology [facility] Outpatient [id number] Mallory Teykl 09/09 Act rajan [facility] Outpatient [id number] Mallory Teykl 09/09 09/10 Urology [facility] Outpatient [id number] Robinson Paulette 10/01 Acti ve [facility] Outpatient [id number] Robinson Paulette 10/01 10/02 Urology [facility] Outpatient [id number] ROBINSON PAULETTE 11/03 Acti ve [facility] Ambulatory [id number] Robinson [place] 11/03 11/03 Urology Pre-Reg [facility] Outpatient [id number] Robinson [place] 12/03 Acti ve [facility] Outpatient [id number] Robinson [place] 12/03 12/04 Urology [facility] Outpatient [id number] Robinson [place] 08/08 Acti ve [facility] Ambulatory [id number] Robinson [place] 08/08 08/08 Urology Pre-Reg [facility] Outpatient [id number] Robinson Paulette 09/22 Acti ve [facility] Ambulatory [id number] Robinson Paulette 09/22 09/22 Urology Pre-Reg [facility] Outpatient [id number] Robinson [place] 10/26 Acti ve [facility] Ambulatory [id number] Robinson [place] 10/26 10/26 Urology Pre-Reg [facility] Procedures Procedure Code Date Perfomer [place] [address] 12/03/19 Medical post-voiding residual 20 George up urine and/or bladder capacity by ultrasound, non-imaging Cystourethroscopy 06055 10/01/20 [facility] judith (separate procedure) 19 Grou p Transurethral [id number] 08/29/20 Medical resection of prostate 15 George up,[facility], [facility] Operation on prostate [id number] 10/14/19 Medical 15 Group,[facility], [facility], [facility] Colon [id number] 10/14/19 colon Medical operation<sup>1</sup> 10 resection for Group,[facility], [facility] Appendectomy [id number] Medical Group,[facility] Cholecystectomy [id number] Medica l Group,[facility], [facility] Operation [id number] Medical Group,[facility], [facility] AV - Aortic valve [id number] Medi judith operation Group, [facility] Bilateral extraction [id number] Medical of cataracts Group, [facility] Colectomy [id number] [facility] Fistula left arm [facility] Prostate [facility] cataract surgery [facility] Assessment and Plan Assessment and Plan Date Source Extracted from:Title: Clinical Document 11/25/[address] [facility] Author: Liborio Danielson MD Date: 11/25/18 I have seen and examined the patient with the Resident/Jasmeet galvin. I agree with the findings and plans above except for the fol lowing: Pt ready for D/C. Will follow up with his primary dialysis nurse. Extracted from:Title: MA So[facility] Staff Addendum Author: Hilario Brooks MD Date: 11/18/18 Severe aortic stenosis(I35.0) My assessment, based on my own physica l examination, review and interpretation of labs and diagnostic imaging, established that the patient has the following diagnoses. Diagnoses This Visit Acutebloodlossanemia(D62) Atelectasispulmonary(J98.11) Benignessentialhypertension(I10) BPH(benignprostatichyperplasia)(N40.0) Coagulopathy(D68.9) DM(diabetesmellitus)(E11.9) ESRDonhemodialysisTTHS(N18.6) Hypoxemia(R09.02) Obesity(DWC66-98.9)(E66.9) S/PAVR(aorticvalvereplacement)Mini11/17/18(Z95.2) S/PTURP(statusposttransurethralresectionofprostate)(Z90.79) Severeaorticvalvestenosis(I35.0) Thrombocytopenia(D69.6) NEURO:Pain controlled on [...] Same PRIMARY SURGEON: Solomon Vaughn MD 1st DIGITAL MARKETING ANALYST: Mickey Chan MD ANESTHESIOLOGISTS: Quiana Ramey MD [...] was then introduced followed by a rib diamond powder technician. A 1cm working utility port was created [...] pulmonary vein was removed. A #24 Bl magaile drain was placed in the pericardium and [...] orifices seen and not involved. DRAINS: A 22-Venezuelan three-way Laboy catheter to continuous bladder i [...] and the resectoscope sheath was removed. A 22-[place]enezuelan three-way Laboy catheter was inserted and the [...] History Date Source Social History TypeResponse 12/03/2019 Medical Brown barrera Alcohol Past, Type Beer. Frequency: Daily.1, 2 Employment/School Status: Retired.3 Exercise Exercise frequency: 3-4 times/week. Exe rcise type: treadmill, strength training.4 Substance Abuse Use: None. Smoking Status Never smoker; Exposure to Tobacco Smoke None; Cigarette Smoking Last 365 Days No; Reg Smoking Cessation Counseling No5 entered on: 12/03/19 1beer every few zixfa3yt beer in a coupl e of weeks and hardly any beer in a couple of nowmsd5mqo phdqtwmhzyy7crlfixqtu training and npvelcx4Df changes Social History TypeResponse 11/14/2018 [facility] Substance Abuse Use: None. Exercise Exercise frequency: 3-4 times/week. Exe rcise type: treadmill, strength training.1 Employment/School Status: Retired.2 Alcohol Past, Type Beer. Frequency: Daily.3, 4 Smoking Status Never smoker; Exposure to Tobacco Smoke None; Cigarette Smoking Last 365 Days No; Reg Smoking Cessation Counseling No5 entered on: 11/17/18 1strenthgh training and hmfpxqw0nhp enfo kidwwux2pxfb every few zxhjh8av beer in a couple of weeks and hardly any beer in a couple of xdeqib9Hg changes Social History TypeResponse 11/14/2018 [facility] Substance Abuse Use: None. Exercise Exercise frequency: 3-4 times/week. Exe rcise type: treadmill, strength training.1 Employment/School Status: Retired.2 Alcohol Past, Type Beer. Frequency: Daily.3, 4 Smoking Status Never smoker; Exposure to Tobacco Smoke None; Cigarette Smoking Last 365 Days No; Reg Smoking Cessation Counseling No5 entered on: 11/17/18 1strenthgh training and monlitg3buj enfo mkdfepv6whis every few tkuwy1ey beer in a couple of weeks and hardly any beer in a couple of loqkze4Sk changes Social History TypeResponse 11/14/2018 Latanya evans Alcohol Past, Type Beer. Frequency: Daily.1, 2 Employment/School Status: Retired.3 Exercise Exercise frequency: 3-4 times/week. Exe rcise type: treadmill, strength training.4 Substance Abuse Use: None. Smoking Status Never smoker; Exposure to Tobacco Smoke None; Cigarette Smoking Last 365 Days No; Reg Smoking Cessation Counseling No5 entered on: 09/02/19 1beer every few knymm5ro beer in a coupl e of weeks and hardly any beer in a couple of bqhyto0rij kkpwgqsfufd0oeozwzare training and qljblwh8Vs changes Social History TypeResponse 08/27/2015 CHRISTIANO Ibrahim Substance Abuse Use: None. Exercise Exercise frequency: 3-4 times/week. Exe rcise type: treadmill, strength training.1 Employment/School Status: Retired.2 Alcohol Current, Type Beer. Frequency: Daily.3, 4 Smoking Status Never smoker; Exposure to Tobacco Smoke None; Cigarette Smoking Last 365 Days No; Reg Smoking Cessation Counseling No 1strenthgh training and eygbshb2mko enfo imwrhbr4tzse every few obxzm3uc beer in a couple of weeks and hardly any beer in a couple of months Social History ElementQualifiersDate Reported 05/12/2013 [facility] Pets: . 3 dogs, 2 cats [...]
--- OUTSIDE RECORDS SUMMARY | 2020-11-16 16:23 | XMS REPORT | Summary of Care ---
:1945 Author Organization [facility] Urology [facility] Address [address] [place] [id number] Encounter HQ Encntr_chuy(FIN) [id number] Date(s): 10/26/20 - 10/26/20 [facility] Urology [address] [address] Attending Physician: Miguel Caldwell MD [...] 09/08/13 Active Microscopic hematuria9 08/10/14 Active Mixed xtkovsjhplckqa19 02/17/13 Active Slqeqec59 Active Pain,abdomen(Confirmed) Active Renal failure(Confirmed) Active Urinary retention(Confirmed) Active Seasonal allergies(Confirmed) Active Swelling of lower limb(Confirmed) Resolved Tumor of colon(Confirmed) Active Type 2 diabetes 01/05/14 Active Urinary elimination Active alteration(Confirmed)13 Urinary [...] No5 entered on: 12/03/19 1beer every few urvkt5tu beer in a couple of weeks and hardly any beer in a couple of jpegbn7oat blyqksycyrp5mkitftzup training and yjgewtt4Se changes Assessment and Plan No data available for this section
--- OUTSIDE RECORDS SUMMARY | 2020-11-16 16:23 | XMS REPORT | Summary of Care ---
:1945 Author Organization [facility] Urology [facility] Address [address] [place] [phone] Encounter HQ Encntr_alipedro(FIN) [id number] Date(s): 09/22/20 - 09/22/20 [facility] Urology [address] [address] Attending Physician: Migeul Caldwell MD Vital Signs No data available [...] 09/08/13 Active Microscopic hematuria9 08/10/14 Active Mixed vmmrcrvgbrsxup24 02/17/13 Active Byhxvqq65 Active Pain,abdomen(Confirmed) Active Renal failure(Confirmed) Active Urinary retention(Confirmed) Active Seasonal allergies(Confirmed) Active Swelling of lower limb(Confirmed) Resolved Tumor of colon(Confirmed) Active Type 2 diabetes ytemtomw94 01/05/14 Active Urinary elimination Active alteration(Confirmed)13 Urinary [...] No5 entered on: 12/03/19 1beer every few jxdgr9fz beer in a couple of weeks and hardly any beer in a couple of jcnciu4fit mhkajtjmamr1uzatexgmg training and pcqyuzq2Ph changes Assessment and Plan No data available for this section
--- OUTSIDE RECORDS SUMMARY | 2020-11-16 16:30 | XMS REPORT | Continuity of Care Document ---
:1945 Author Organization [facility] t Address [address] [place] [address] Dr. [address]. [address] [place] [address] Care Team Providers Name Role Phone Flavio Mtz MD Primary Care Physician Yovani FELIPE Attending Clinician Paulette Attending Clinician Guillermina Shetty MD Attending Clinician Fany DAS P. Attending Clinician Rosalio DAS Attending Clinician Talia Hurtado MD Attending Clinician Mandie Ya MD Attending Clinician Bill Woo MD Attending Clinician George Valdez MD Attending Clinician Edna DAS Attending Clinician Branden DAS Attending Clinician Idris Law MD Attending Clinician Loren Arias MD Attending Clinician Unavailable Yefri TRUJILLO Attending Clinician Unavailable Zuri Platt Attending Clinician Marc Alicia Attending Clinician Terry Vaughn Attending Clinician Eliana Kaapdia Attending Clinician Unavailable Tomas Danielson Attending Clinician Yissel Marcelo Attending Clinician [facility] [place] Attending Clinician ROSALIO Admitting Clinician Unavailable Terry Vaughn Admitting Clinician Yissel Marcelo Admitting Clinician [facility] [place] Admitting Clinician Payers Payer Name Policy Type Policy Effective Date Expiration Date Sour ce Number MEDICAREMEDICARE A [id number] 2009 LITA Stark [id number] 2008- 00:00:00 - [facility] Problems Condition Condition Condition Status Onset Resolution Last Treating Co mments Source Name Details Category Date Date Treatment Clinician Date s/p ACB x4 s/p ACB x4 Disease Active 2019-[address] by 11-27 Mi - Diogenes on Diogenes on 00:00: Me dical 09/27/2020 09/27/2020 00 Ce nter URINARY Diagnosis Active 2018-102019-09-15 Nh moria RETENTION - 12:35:00 l URINARY 00:00: [place] RETENTION 00 Active 2019 [place] S/P AVR S/P AVR Disease Active [facility] S/P AVR/ Diagnosis Active 2018-12-08 emoria SOB - 15:19:00 l S/P AVR/ 00:00: [place] SOB 00 Active 12/04/2018 [facility] R14.0 Diagnosis Active 2018-10-30 Mem oria 10-24 14:43:00 l R14.0 00:00: [place] 00 Active 10/24/2018 [facility] Nonrheumat Nonrheumat Disease Active 2017-[address] ic aortic ic aortic -20 Hoang s - (valve) (valve) 00:00: Medical stenosis stenosis 00 Center NONRHEUMAT Diagnosis Active 2017-102018-11-20 Memoria IC AORTIC 2-20 05:24:00 l (VALVE) 00:00: [place] STENOSIS NONRHEUMAT 00 IC AORTIC (VALVE) STENOSIS Active 10/02/2018 [facility] ESRD (end ESRD (end Disease Active [place] st[facility] stage stage 2-15 Methodi renal renal 00:00: st disease) disease) 00 on on dialysis dialysis Hypertensi Hypertensi Disease Active 2015-10 [place] on 0 Methodi associated associated 00:00: st with with 00 chronic chronic kidney kidney disease disease due to due to type 2 type 2 diabetes diabetes mellitus mellitus BLADDER Diagnosis Active 2014-102015-08-29 Me moria NECK 1-13 10:45:00 l CONTRACTUR BLADDER 00:00: Her garza E-N32.0 NECK 00 CONTRACTUR E-N32.0 Active 08/26/2015 [place] Malignant Problem Active 2020-10-28 Me moria tumor of 2-12 22:20:08 l prostate 00:00: [place] (disorder) Malignant 00 tumor of prostate (disorder) Active 11/25/2014 Problem 10/28/2020 Data migrated from [employer] on 04/20/15. Medical Group,[facility], OPID [place],[facility] [place] BENIGN Diagnosis Active 2015-04-20 Mem oria PROSTATIC 1-12 10:46:00 l HYPERTROPH BENIGN 00:00: Herm eliana Y WITH PROSTATIC 00 OBSTRU HYPERTROPH Y WITH OBSTRU Active 10/25/2014 [place] Benign Problem Active 2013-102020-10-28 Memor ia prostatic 0-28 22:20:08 l hypertroph Benign 00:00: Herm eliana with prostatic 00 outflow hypertroph obstructio with n outflow (disorder) obstructio n (disorder) Active 08/10/2014 Problem 10/28/2020 Data migrated from [employer] on 03/12/15. Medical Group,[facility], OPID [place],[facility] [place] Finding of Problem Active 2013-102020-10-28 M emoria frequency 0-28 22:20:08 l of Finding 00:00: [place] urination of 00 (finding) frequency of urination (finding) Active 08/10/2014 Problem 10/28/2020 Data migrated from [employer] on 03/12/15. Medical Group,[facility], OPID [place],[facility] [place] Glycosuria Problem Active 2013-102020-10-28 M emoria (finding) 0- 22:20:08 l 00:00: [place] Glycosuria 00 (finding) Active 08/10/2014 Problem 10/28/2020 Data migrated from [employer] on 03/12/15. Medical Group,[facility], OPID [place],[facility] [place] Microscopi Problem Active 2013-102020-10-28 M emoria c 0- 22:20:08 l hematuria 00:00: [place] (disorder) Microscopi 00 c hematuria (disorder) Active 08/10/2014 Problem 10/28/2020 Data migrated from [employer] on 03/12/15. Medical Group,[facility], OPID [place],[facility] [place] Metabolic Problem Active 2012-102020-10-28 Me moria syndrome X 11-08 22:20:08 l (disorder) 00:00: [place] Metabolic 00 syndrome X (disorder) Active 09/08/2013 Problem 10/28/2020 Data migrated from [employer] on 03/12/15. Medical Group,[facility], OPID [place],[facility] [place] Mixed Problem Active 2020-10-28 Memor ia hyperlipid 02-17 22:20:08 l emia Mixed 00:00: [place] (disorder) hyperlipid 00 emia (disorder) Active 02/17/2013 Problem 10/28/2020 Data migrated from [employer] on 03/12/15. Medical Group,[facility], OPID [place],[facility] [place] Pure Pure Disease Active 2009-[address] hyperchole hyperchole 11-06 Janey kes - sterolemia sterolemia 00:00: Me dical 00 Center hyperlipid Problem Active 2009-102014-11-12 M emoria emia(Confi 11-06 09:07:21 l rmed) 00:00: [place] hyperlipid 00 emia(Confi rmed) Active 09/06/2010 Problem 11/12/2014 [place] hypertensi Problem Active 2009-102014-11-12 M emoria on(Confirm 11-06 09:07:21 l ed) 00:00: [place] hypertensi 00 on(Confirm ed) Active 09/06/2010 Problem 11/12/2014 [place] Lactic Lactic Disease Active [facility] acid acid [facility] - acidosis acidosis [facility] Vasodilata Vasodilata Disease Active [facility] tion tion [facility] Pulmonary Pulmonary Disease Active [facility] hypertensi hypertensi Janey kes - on on Medical Center Acute Acute Disease Active [facility] post-opera post-opera Janey kes - tive pain tive pain [facility] S/P CABG x S/P CABG x Disease Active [facility] 4 4 [facility] Acute Acute Disease Active [facility] respirator respirator Janey kes - y y Medical insufficie insufficie Ce nter ncy ncy Acute on Acute on Disease Active [facility] - diastolic diastolic [facility] heart [place] failure failure Acute Acute Disease Active [facility] renal renal [facility] - failure on failure on Nh dical dialysis dialysis Center Chest Problem 2019-04-21 Memor ia pain, 11:08:42 l unspecifie Chest Rebeca nn d pain, unspecifie d 04/21/2019 [facility] 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 11:08:42 l heart [place] 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 04/21/2019 [facility] Atheroscle Problem 2019-04-21 M emoria rosis of 11:08:42 l aorta [place] Atheroscle rosis of aorta 04/21/2019 [facility] Other Problem 2019-04-21 Memor ia nonspecifi 11:08:42 l c abnormal Other Rebeca nn finding of nonspecifi lung field c abnormal finding of lung field 04/21/2019 [facility] Umbilical Problem 2019-04-21 Me moria hernia 11:08:42 l without [place] obstructio Umbilical n or hernia gangrene without obstructio n or gangrene 04/21/2019 [facility] Bilateral Problem 2019-04-21 Me moria inguinal 11:08:42 l hernia, [place] without Bilateral obstructio inguinal n or hernia, gangrene, without not obstructio specified n or as gangrene, recurrent not specified as recurrent 04/21/2019 [facility] 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) 04/21/2019 [facility] Nicotine Problem 2019-04-21 Mem oria dependence 11:08:42 l , Nicotine [place] cigarettes dependence , , uncomplica cigarettes duane , uncomplica duane 04/21/2019 [facility] Acquired Problem 2019-04-21 Mem oria absence of 11:08:42 l other Acquired [place] specified absence of parts of other digestive specified tract parts of digestive tract 04/21/2019 [facility] Intestinal Problem 2019-04-21 M emoria bypass and 11:08:42 l anastomosi [place] s status Intestinal bypass and anastomosi s status 04/21/2019 [facility] Pupillary Problem 2017-07-17 Me moria abnormalit 04:01:45 l y, left [place] eye Pupillary abnormalit y, left eye 07/17/2017 [facility] Backache Problem Resolve 2020-10-28 Me moria (finding) d 22:20:08 l Backache [place] (finding) Resolved Problem 10/28/2020 Medical Group,[facility], OPID [place],[facility] [place] Swelling Problem Resolve 2020-10-28 Me moria of lower d 22:20:08 l limb Swelling [place] (finding) of lower limb (finding) Resolved Problem 10/28/2020 Medical Group,[facility], [facility] [place],[facility] [place] Diabetes Problem Resolve 2020-10-28 Me moria mellitus d 22:20:08 l (disorder) Diabetes He rmann mellitus (disorder) Resolved Problem 10/28/2020 Medical Group,[facility] ,[facility] [place] End stage Problem Resolve 2020-10-28 M emoria renal d 22:20:08 l disease End [place] (disorder) stage renal disease (disorder) Resolved Problem 10/28/2020 Medical Group,[facility], [place] Hypertensi Problem Active 2013-12-16 M emoria on 04:52:18 l [place] Hypertensi on Active Problem 4 [facility] Hyperlipem Problem Active 2013-12-16 M emoria ia 04:52:18 l [place] Hyperlipem ia Active Problem 4 [facility] Chronic Problem Active 2013-12-16 Jb zachary kidney 04:52:18 l disease, Chronic Rebeca nn stage III kidney disease, stage III Active Problem 12/16/2013 [facility] Acute Diagnosis Active 2013-07-14 Mem oria ethmoidal 04:23:16 l sinusitis Acute [place] ethmoidal sinusitis Active Diagnosis 07/14/2013 [facility] Benign Problem Active 2020-10-28 Memor ia prostatic 22:20:08 l hyperplasi Benign Herm eliana a prostatic (disorder) hyperplasi a (disorder) Active Problem 10/28/2020 Medical Group,[facility], [facility] [place],[facility], [place] Chronic Problem Active 2020-10-28 Jb zachary back pain 22:20:08 l (disorder) Chronic Her garza back pain (disorder) Active Problem 10/28/2020 Medical Group,[facility], [facility] [place],[facility], [place] Chronic Problem Active 2020-10-28 Jb zachary renal 22:20:08 l impairment Chronic Her garza (disorder) renal impairment (disorder) Active Problem 10/28/2020 Medical Group,[facility], [facility] [place],[facility] [place] Chronic Problem Active 2020-10-28 Jb zachary kidney 22:20:08 l disease Chronic [place] n stage 3 kidney (disorder) disease stage 3 (disorder) Active Problem 10/28/2020 Data migrated from [facility] on 03/12/15. Medical Group,[facility], OPID [place],[facility], [place] Diabetes Problem Active 2020-10-28 Mem oria mellitus 22:20:08 l type 2 Diabetes [place] (disorder) mellitus type 2 (disorder) Active Problem 10/28/2020 Medical Group,[facility], [facility] [place],[facility], [place] Essential Problem Active 2020-10-28 Me moria hypertensi 22:20:08 l on [place] (disorder) Essential hypertensi on (disorder) Active Problem 10/28/2020 Data migrated from [employer] on 03/12/15. Medical Group,[facility], OP[facility] [place],[facility], [place] Hypertensi Problem Active 2020-10-28 M emoria ve 22:20:08 l disorder, [place] systemic Hypertensi arterial ve (disorder) disorder, systemic arterial (disorder) Active Problem 10/28/2020 [facility], [facility] [place],[facility], [place] Hypogonadi Problem Active 2020-10-28 M emoria sm 22:20:08 l (disorder) [place] Hypogonadi sm (disorder) Active Problem 10/28/2020 Data migrated from [employer] [place] on 03/12/15. Medical Group,[facility], OPID [place],[facility], [place] Hypokalemi Problem Active 2020-10-28 M emoria a 22:20:08 l (disorder) [place] Hypokalemi a (disorder) Active Problem 10/28/2020 Medical Group,[facility], [facility] [place],[facility], [place] Obesity Problem Active 2020-10-28 Jb zachary (disorder) 22:20:08 l Obesity [place] (disorder) Active Problem 10/28/2020 Data migrated from [employer] on 03/12/15. Medical Group,[facility], OPID [place],[facility], [place] Pain Problem Active 2020-10-28 Memor ia (finding) 22:20:08 l Pain [place] (finding) Active Problem 10/28/2020 Medical Group,[facility], [facility] [place],[facility], [place] Renal Problem Active 2020-10-28 Memor ia failure 22:20:08 l syndrome Renal [place] (disorder) failure syndrome (disorder) Active Problem 10/28/2020 Medical Group,[facility], [facility] [place],[facility], [place] Seasonal Problem Active 2020-10-28 Mem oria allergic 22:20:08 l rhinitis Seasonal Herm eliana (disorder) allergic rhinitis (disorder) Active Problem 10/28/2020 Medical Group,[facility], [facility] [place],[facility], [place] Neoplasm Problem Active 2020-10-28 Mem oria of colon 22:20:08 l (disorder) Neoplasm He rmann of colon (disorder) Active Problem 10/28/2020 Medical Group,[facility], [facility] [place],[facility], [place] Alteration Problem Active 2020-10-28 M emoria in 22:20:08 l patterns [place] of urinary Alteration eliminatio in n patterns (finding) of urinary eliminatio n (finding) Active Problem 10/28/2020 increased frequency Medical Group,[facility], [facility] [place],[facility], [place] Cholestero Problem Active 2015-09-22 M emoria l 01:38:21 l (substance [place] ) Cholestero l (substance ) Active Problem 09/22/2015 [facility] [place], [place] Retention Problem Active 2020-10-28 Me moria of urine 22:20:08 l (disorder) [place] Retention of urine (disorder) Active Problem 10/28/2020 Medical [facility], [place] Urinary Problem Active 2020-10-28 Jb zachary tract 22:20:08 l infectious Urinary Her garza disease tract (disorder) infectious disease (disorder) Active Problem 10/28/2020 Medical Group, [place] Hyperchole Problem Active 2017-07-31 M emoria sterolemia 04:01:11 l (disorder) [place] Hyperchole sterolemia (disorder) Active Problem 07/31/2017 [facility] Hyperlipid Problem Active 2017-07-31 M emoria emia 04:01:11 l (disorder) [place] Hyperlipid emia (disorder) Active Problem 07/31/2017 [facility] BPH W Diagnosis Active 2015-04-20 Mem oria URINARY 10:46:00 l OBS/LUTS BPH W [place] URINARY OBS/LUTS Active [place] Urinary Problem 2018-102019-09-04 2019-09-04 Memoria tract 11-02 23:46:10 23:46:10 l infection, Urinary 18:00: Her garza site not tract 00 specified infection, site not specified 2019 09/04/2019 [place] Retention Problem 2018-102019-09-04 2019-09-04 Memoria of urine, 11-02 23:46:10 23:46:10 l unspecifie 18:00: [place] etienne d Retention 00 of urine, unspecifie d 2019 09/04/2019 [place] Abdominal Problem 2019-05-20 2019-05-20 Memoria distension 11-05 11:17:50 11:17:50 l (gaseous) 05:03: [place] Abdominal 56 distension (gaseous) 11/05/2018 05/20/2019 [facility] Nonrheumat Problem 2017-102019-04-21 2019-04-21 Memoria ic aortic 2-25 11:08:42 11:08:42 l (valve) 04:16: [place] stenosis Nonrheumat 47 ic aortic (valve) stenosis 8 04/21/2019 [facility] Age-relate Problem 2016-102017-07-31 2017-07-31 Memoria d nuclear 0-16 04:01:11 04:01:11 l cataract, 05:00: [place] right eye Age-relate 00 d nuclear cataract, [...] DA Active U 2017-10 [facility] Allergie 10-21 [place] [facility] 00:00: Region[facility] [address] [facility] No Known No Known Active Memori a Medicati Medicati l on on [place] Davies s s Family History Family Member Diagnosis Comments Start Date Stop Date Source Natural father Heart failure [facility] Natural father Stomach cancer [facility] Natural mother Stroke [facility] Social History Social Habit Start Date Stop Date Quantity Comments [facility]ica [facility] [place] [facility] Sex Assigned At [facility] Tobacco use and 2020-09-29 2020-09-29 Never used [facility] - exposure 00:00:00 00:00:00 [facility] Alcohol intake 2020-09-29 2020-09-29 [facility] 00:00:00 non-drinker of Medical Ce nter alcohol (finding) History SDKY 2018-12-24 2018-12-[address] [facility] - Alcohol Frequency 00:00:00 00:00:00 [facility] Social History 2015-08-27 2015-08-27 [facility] ermann 00:41:57 00:41:57 Pets: 2013-05-12 2013-05-[address] [facility] 00:00:00 00:00:00 Smoking Status Start Date Stop Date Source Never smoker [facility] edical [place] Medications Ordered Filled Start Stop Current Ordering Indication Dosage Frequency Signature Comments Components Source Medication Medication Date Date Medication? Clinician (SIG) Name Name rosuvastati 2019-10 Yes 20mg QD Take [address] [facility] [facility] (CRESTOR) 2-29 tablet (20 Janey kes - 20 MG 00:00: mg total) Medical tablet 00 by mouth Center daily. tamsulosin 2019-10 Yes .4mg QD Take 1 [facility] (FLOMAX) 2-29 capsule [facility] - 0.4 mg Cap 00:00: (0.4 mg Medi judith 24 hr 00 total) by Center capsule mouth daily. aspirin 81 2019-10 Yes 81mg QD Take 1 [facility] MG EC 2-29 tablet (81 [facility] - tablet 00:00: mg total) Medica l 00 by mouth Center daily. cinacalcet 2019-10 Yes 30mg Take 1 [facility] (SENSIPAR) 2-29 tablet (30 Dottie es - 30 MG 00:00: mg total) Medical tablet 00 by mouth Center daily with breakfast. warfarin 2019-10 Yes 2mg QD Take [address] [facility] (COUMADIN, 2-28 tablet (2 Luke s - JANTOVEN) 2 00:00: mg total) M edical MG tablet 00 by mouth Center daily. amiodarone 2019-10 Yes 400mg Q.5D Take [address] (PACERONE) 2-28 tablet [facility] - 400 MG 00:00: (400 mg Medical tablet 00 total) by Center mouth 2 (two) times daily. HYDROcodone 2019-10 Yes 1{tbl} Take [address] -acetaminop 2-28 tablet by Dottie woo - hen (NORCO 00:00: mouth Medica l 5-325) 00 every 8 Center 5-325 mg (eight) per tablet hours as needed. Max Daily Amount: 3 tablets lidocaine 2019-10 Yes 2{patch Q24H Place [address] (LIDODERM) 2-28 } patches [facility] - 5 % patch 00:00: onto the Medi judith 00 skin daily Center Remove & Discard patch within 12 hours or as directed by . sevelamer 2019-10 Yes 800mg Take 1 [facility] (RENVELA) 2-28 tablet [facility] - 800 mg 00:00: (800 mg Medical tablet 00 total) by Center mouth 3 (three) times daily with meals. melatonin 5 2019-10 Yes 5mg Take [address] [facility] [facility] mg Tab 2-28 tablet (5 [facility] - tablet 00:00: mg total) Medica l 00 by mouth Center every night as needed. senna-docus 2019-10- Yes 1{tbl} Take [address] ate 2-28 12-28 tablet by [facility] - (SENOKOT S) 00:00: 23:59 mouth 2 Me dical 8.6-50 mg 00 :00 (two) Center per tablet times daily as needed for Constipati on. amLODIPine 2019-10- No 5mg Q.5D Take [address] (NORVASC) 5 2-28 -27 tablet (5 Janey kes - MG tablet 00:00: 23:59 mg total) Me dical 00 :00 by mouth 2 Center (two) times daily for 30 days. metoprolol 2019-10- No 12.5mg Q.5D Take 0.[address] tartrate 2-28 -27 tablets [facility] - (LOPRESSOR) 00:00: 23:59 (12.5 mg M edical 25 MG 00 :00 total) by Center tablet mouth 2 (two) times daily for 30 days. bisacodyL 2019-10 No 5mg Take 1 [facility] (DULCOLAX) 12-11 tablet (5 Dottie es - 5 mg EC 00:00: 23:59 mg total) Medi judith tablet 00 :00 by mouth Center daily as needed for Constipati on for up to 30 days. benzonatate 2019-10 No 100mg Take [address] (TESSALON) 12-11 capsule [facility] - 100 MG 00:00: 23:59 (100 mg Medical capsule 00 :00 total) by Center mouth 3 (three) times daily as needed for Cough for up to 7 days. aspirin 81 2019-10 No 81mg QD Take [address] MG EC 11-27 by mouth [facility] - tablet 18:15: 00:00 daily. Medical 44 :00 [place] warfarin 5 Yes 5 mg = 1 Mem oria mg oral 2-20 tab, PO, l tablet 19:18: Daily, # [place] 00 30 tab, 0 Refill(s) Cephalexin 2018-10 Yes 250 mg = 1 M emoria 250 MG Oral -27 cap, PO, l Capsule 16:46: BID, start Herm eliana [Keflex] 00 the day before scope procedure, X 3 day, # 6 cap, 0 Refill(s), Pharmacy: [id number] Ciprofloxac 2018-10 Yes 500 mg = 1 Memoria in 500 MG 1-21 tab, PO, l Oral Tablet 04:20: Q24H, X 7 H ermann [Cipro] 00 day, # 7 tab, 0 Refill(s) amLODIPine 2019- No [facility] (NORVASC) 3-04 10-10 [facility] - 10 MG 00:00: 00:00 Medical tablet 00 :00 [place] warfarin 2019- No [facility] (COUMADIN) 2-14 10-10 [facility] - 2 MG tablet 00:00: 00:00 Medic al 00 :00 [place] acetaminoph 2019- No [facility] en-codeine 2-13 10-10 [facility] - (TYLENOL 00:00: 00:00 Medical #3) 300-30 00 :00 [place] mg per tablet rosuvastati 2019- No [facility] (CRESTOR) 11-26 [facility] - 20 MG 00:00: 00:00 Medical tablet 00 :00 [place] tamsulosin 2019- No [facility] (FLOMAX) 11-26 [facility] - 0.4 mg Cap 00:00: 00:00 Medica l 24 hr 00 :00 [place] capsule gabapentin 2019- No [facility] (NEURONTIN) 11-26 [facility] - 100 MG 00:00: 00:00 Medical capsule 00 :00 [place] Warfarin No Notes: Merlyn 11-25 Nurse to l 20:20: ensure [place] 00 documentat ion of patient education [facility]. Avoid large intake of vitamin-K containing foods diet. (Same As: Coumadin) WASTE: F/P - P Waste Black; E - P Waste Black DME Yes See Merlyn Prescriptio 11-25 Instructio l n 16:05: ns, MISC, [place] 00 ONCE, Cardiac Rehab Phase II Dx: [...] PO, l oral tablet 16:05: Bedtime, # [place] 00 30 tab, 0 Refill(s) Aspirin 81 Yes 81 mg = 1 Me moria MG Chewable 2-12 tab, PO, l Tablet 16:05: Daily, # [place] 00 30 tab, 0 Refill(s) metoprolol Yes 50 mg = 1 Me moria 50 mg oral 2-12 tab, PO, l tablet, 16:05: Q12H, # 60 Herm eliana extended 00 tab, 0 release Refill(s) gabapentin Yes 100 mg = 1 M emoria 100 MG Oral 2-12 cap, PO, l Capsule 16:05: Q12H, # 60 Herm eliana 00 cap, 0 Refill(s) gabapentin No 300 mg, 1 Me moria 300 MG Oral 2-12 cap, l Capsule 15:00: Route: PO, Herm eliana 00 Drug form: CAP, Daily, Dosing Weight 116.534, kg, Start date: 11/25/18 9:00:00 RETURN CLERK, Duration: 30 day, Stop date: 12/24/18 9:00:00 [...] as: l release 15:00: Toprol XL) Herm May split tab, but do not crush. [...] (Same As: Coumadin) Warfarin No Notes: Merlyn 2 Nurse to l 23:00: ensure [place] 00 documentat ion of patient education per anticoagul ation policy. Avoid large intake of vitamin-K containing foods diet. (Same As: Coumadin) WASTE: F/P - P Waste Black; E - P Waste Black Warfarin No Notes: Merlyn 2 Nurse to l 23:00: ensure [place] documentat ion of patient education per anticoagul ation policy. Avoid large intake of vitamin-K containing foods diet. (Same As: Coumadin) WASTE: F/P - P Waste Black; E - P Waste Black colchicine No 0.6 mg, 1 Me moria 0.6 mg oral 11-21 tab, l tablet 23:00: Route: PO, Rebeca Drug form: TAB, BID, Dosing Weight 116.534, kg, Start date: 11/21/18 17:00:00 RETURN CLERK, Duration: 30 day, Stop date: 12/21/18 9:00:00 CDT Acetaminoph No Notes: Do M emoria en 300 MG / 11-21 not exceed l Codeine 12:38: 4gm/day of acetaminop 30 MG Oral hen. Tablet (Same as: [Tylenol Tylenol with with Codeine #3] Codeine # 3) Warfarin No Notes: Merlyn 2 Nurse to l 23:00: ensure [place] 00 documentat ion of patient education per anticoagul ation policy. Avoid large intake of vitamin-K containing foods diet. (Same As: Coumadin) WASTE: F/P - P Waste Black; E - P Waste Black Bisacodyl No Notes: Memori a 11-20 (Same As: l 20:36: Dulcolax, Bisco-Lax) metoprolol No Notes: Memor ia tartrate 11-20 (Same as: l 15:56: Lopressor) AMIODarone No 2 mg/ml. Me moria 900 mg in 11-20 Use Glass l D5W 500 ml 15:33: Bottle or He rmann IV 900 mg + 00 Non PVC Dextrose 5% Bag "Use in Water IV 0.22 482 mL micron in-line filter" MEDICATION WASTE Product Size: 900 mg Product Wasted: ___ mg Amiodarone 2019-0 No 2 mg/ml. Me moria 207 "Recommend l 15:33: ation: Use [place] 00 an in-line filter during administra tion for continuous infusions to reduce the incidence of phlebitis" (Same as Codarone) MEDICATION WASTE Product Size: 150 mg Product Wasted: ___ mg Metoprolol 2018-0 No Notes: Memor ia 2-07 (Same as: l 14:39: Lopressor) Push over 2 minutes Lidocaine 2018-0 No Notes: Memori a Hydrochlori 2-06 (Same as: l de 10 MG/ML 18:04: Xylocaine) [place] Injectable Solution alfuzosin 0 No 10 mg, Memori a extended 2 Route: PO, l release 16:31: Daily, Dosing Weight 116.534, kg, Priority: NOW, Start date: 11/19/18 10:31:00 RETURN CLERK, Duration: 30 day, Stop date: 12/19/18 9:00:00 RETURN CLERK Fentanyl 2018-0 No Notes: Memoria 206 (Same as: l 16:21: Sublimaze) Preservat rajan free. Finasteride 2019-0 No 5 mg, Memor ia 2-06 Route: PO, l 15:00: Drug form: [place] 00 TAB, Daily, Dosing Weight 116.534, kg, Start date: 11/19/18 9:00:00 RETURN CLERK, Duration: 30 day, Stop date: 12/18/18 9:00:00 RETURN CLERK Glucagon 2018-0 No 1 mg, Memoria 2 Route: IM, l 13:58: Drug form: PDR/INJ, PRN, Dosing Weight 116.534, kg, PRN Blood Glucose Results, Start date: 11/19/18 7:58:00 RETURN CLERK, Duration: 30 day, Stop date: 12/19/18 7:57:00 RETURN CLERK Dextrose 2019-0 No 25 gm, 50 Jb zachary 50% Syringe 2-06 mL, Route: l 13:58: IVP, Drug Form: INJ, Dosing Weight 116.534, kg, PRN, PRN Blood Glucose Results, Start date: 11/19/18 7:58:00 RETURN CLERK, Duration: 30 day, Stop date: 12/19/18 7:57:00 RETURN CLERK Insulin No Notes: Memoria Lispro 2-06 (Same as: l 13:58: Humalog ) [place] 00 Roll in palms of hands gently; Do [...] Weight 116.534, kg, Start date: 11/18/18 21:00:00 RETURN CLERK, Duration: 30 day, Stop date: 12/18/18 17:00:00 RETURN CLERK sennosides, No Notes: Jb zachary [facility] 8.6 MG 2-06 (Same as: l Oral Tablet 03:00: Senokot) He rmann atorvastati No Notes: Jb zachary n 2-06 (Same as: l 03:00: Lipitor) [place] 00 heparin No Notes: Memoria sodium, 2-05 porcine l porcine 22:00: heparin [place] 2500 UNT/ML 00 Injectable Solution Cefazolin No Notes: Memori a 2-05 (Same as l 20:00: Ancef) [place] 00 Simethicone No Notes: Jb zachary 2-05 (Same as: l 19:00: Mylicon) [place] Acetaminoph No Notes: Max Memoria en 2-05 acetaminop l 18:00: hen 4000 [place] 00 mg/day (4 gm/day). (Same as: Tylenol Extra Strength) Flomax No Notes: Memoria 2-05 (Same As: l 18:00: Flomax) [place] 00 "Do Not Crush" Finasteride No Notes: Jb zachary 2-05 (Same as: l 17:44: Proscar) [place] 00 "Do Not Crush" Women of childbeari ng age should not touch or handle broken tablets Oxycodone No Notes: Memori a Hydrochlori 2-05 (Same as: l de 5 MG 17:23: Roxicodone Herm eliana Oral Tablet 00 ) gabapentin No Notes: Memor ia 100 MG Oral 2-05 (Same as: l Capsule 17:22: Neurontin) Herm eliana 00 pantoprazol No Notes: Jb zachary e 2-05 Tablet l 15:00: should not [place] 00 be chewed or crushed. (Same as: Protonix) Docusate No Notes: Memoria 2-05 (Same as: l 15:00: Colace) [place] 00 (Do Not Crush) Miralax No Notes: Memoria 2-05 Dissolve l 15:00: in 8 oz of [place] 00 water or juice. (Same as: Miralax) Mupirocin No 1 appl, Memor ia 0.02 MG/MG 2-05 Route: l Topical 15:00: NASAL, [place] Ointment 00 BID, Drug form: OINT, Start date: 11/18/18 9:00:00 RETURN CLERK, Duration: 5 day, Stop date: 11/22/18 17:00:00 RETURN CLERK Aspirin 81 No Notes: Do Me moria MG Chewable 2-05 not crush l Tablet 15:00: or chew. [place] 00 (Same As: Ecotrin) tramadol No Notes: Not Mem oria hydrochlori 2-05 to exceed l de 50 MG 14:00: 400mg/day. Her garza Oral Tablet 00 (Same As: Ultram) Oxycodone No Notes: Memori a Hydrochlori 2-05 (Same as: l de 5 MG 09:32: Roxicodone Herm eliana Oral Tablet 00 ) [facility] No Notes: Memoria 2-05 Infuse l 07:00: over 15 [place] 00 minutes Do not exceed 4gm/day of acetaminop hen MEDICATION WASTE Product Size: 1000 mg Product Wasted: ___ mg ocular No Notes: Memoria lubricant 2-05 (Same as: l 06:00: Lacri-Lube [place] 00 , Puralube, Duratears Naturale, Artificial Tears, and Tears Again ) [facility] No or = 50 Memori a 2-05 kg, Start l 06:00: date: [place] 00 11/18/18 0:00:00 RETURN CLERK, Duration: 1 day, Stop date: 11/18/18 18:00:00 RETURN CLERK albumin No Notes: Memoria human 5% 2-05 LOT#: l intravenous 05:26: [place] solution 00 ___ Mfg: WASTE: F/P - Red; E -Red (Same as: Albuminar) "blood product derivative " Sodium No 500 mL, Memoria Chloride 2-05 500 ml/hr, l 0.9% 05:23: Infuse [place] (Bolus) IV 00 Over: 1 hr, Route: IV, ONCE, Priority: STAT, Dosing Weight 116.534 kg, Start date: 11/17/18 23:23:00 RETURN CLERK, Stop date: 11/17/18 23:23:00 RETURN CLERK chlorhexidi No Notes: Jb zachary ne 2-05 (Same As: l gluconate 03:00: Peridex) Herm eliana 1.2 MG/ML 00 Mouthwash Insulin No Notes: Memoria regular 100 2-05 Final l unit + 01:36: Concentrat Rebeca nn 00 ion 1unit/1ml WASTE: F/P - Black; E - Municipal Trash Bin Dextrose No 12.5 gm, Memor ia 50% Syringe 2-05 25 mL, l 01:36: Route: [place] 00 IVP, Drug Form: INJ, Dosing Weight 116.534, kg, PRN, PRN Blood Glucose Results, Start date: 11/17/18 19:36:00 RETURN CLERK, Duration: 30 day, Stop date: 12/17/18 19:35:00 RETURN CLERK Ofirmev 2018- No Notes: Memoria 2-05 Infuse l 01:05: over 15 [place] 00 minutes Do not exceed 4gm/day of acetaminop hen MEDICATION WASTE Product Size: 1000 mg Product Wasted: ___ mg chlorhexidi No Notes: Jb zachary ne 2-05 (Same As: l gluconate 00:58: Peridex) Herm eliana 1.2 MG/ML 00 Mouthwash chlorhexidi No Notes: Jb zachary ne 2-05 (Same As: l gluconate 00:44: Peridex) Herm eliana 1.2 MG/ML 00 Mouthwash Fentanyl No Notes: Memoria 2-05 (Same as: l 00:43: Sublimaze) [place] 00 Preservat rajan free. Albuterol No Notes: Memori a 0.833 MG/ML 2-05 (Same as: l / 00:43: Duoneb) [place] Ipratropium 00 [place] 0.167 MG/ML Inhalant Solution [DuoNeb] Magnesium 2018- No 800 mg, Memor ia Oxide 2-05 Route: PO, l 00:26: PRN, [place] 00 Dosing Weight 116.534, kg, PRN Abnormal Lab Result, FOR ICU USE ONLY, Start date: 11/17/18 18:26:00 RETURN CLERK, Duration: 30 day, Stop date: 12/17/18 18:25:00 RETURN CLERK Calcium No 1 gm, Memoria Gluconate 2-05 Route: l 00:26: IVPB, PRN, [place] 00 Dosing Weight 116.534, kg, PRN Abnormal Lab Result, Start date: 11/17/18 18:26:00 RETURN CLERK, Duration: 30 day, Stop date: 12/17/18 18:25:00 RETURN CLERK, FOR ICU USE ONLY Calcium 2018- No 500 mg, Memoria Carbonate 2-05 Route: PO, l 500 MG 00:26: PRN, [place] Chewable 00 Dosing Tablet Weight 116.534, kg, PRN Abnormal Lab Result, FOR ICU USE ONLY, Start date: 11/17/18 18:26:00 RETURN CLERK, Duration: 30 day, Stop date: 12/17/18 18:25:00 RETURN CLERK potassium 2019-0 No 2 pkt, Memori a phosphate-s 2-05 Route: PO, l odium 00:26: Dosing [place] phosphate 00 Weight 250 mg-280 116.534, mg-160 mg kg, PRN, oral powder PRN for Abnormal reconstitut Lab ion Result, FOR ICU USE ONLY, Start date: 11/17/18 18:26:00 RETURN CLERK, Duration: 30 day, Stop date: 12/17/18 18:25:00 RETURN CLERK Magnesium 2019-0 No 2 gm, Memoria Sulfate 2-05 Route: l 00:26: IVPB, PRN, [place] Dosing Weight 116.534, kg, PRN Abnormal Lab Result, Start date: 11/17/18 18:26:00 RETURN CLERK, Duration: 30 day, Stop date: 12/17/18 18:25:00 RETURN CLERK, FOR ICU USE ONLY potassium 2019-0 No 15 mmol, Jb zachary phosphate 2-05 Route: l 00:26: IVPB, PRN, [place] 00 Dosing Weight 116.534, kg, PRN Abnormal Lab Result, Start date: 11/17/18 18:26:00 RETURN CLERK, Duration: 30 day, Stop date: 12/17/18 18:25:00 RETURN CLERK, FOR ICU USE ONLY sodium 2019-0 No 15 mmol, Memoria phosphate 2-05 Route: l 00:26: IVPB, PRN, [place] 00 Dosing Weight 116.534, kg, PRN Abnormal Lab Result, Start date: 11/17/18 18:26:00 RETURN CLERK, Duration: 30 day, Stop date: 12/17/18 18:25:00 RETURN CLERK, FOR ICU USE ONLY Potassium 2019-0 No 20 mEq, Memor ia Chloride 2-05 Route: PO, l 00:26: Drug form: [place] 00 ERTAB, PRN, Dosing Weight 116.534, kg, PRN Abnormal Lab Result, Start date: 11/17/18 18:26:00 RETURN CLERK, Duration: 30 day, Stop date: 12/17/18 18:25:00 RETURN CLERK, FOR ICU USE ONLY Stimate 2019-0 No Route: IV, Jb zachary (ANES) 4 - Drug Form: l microgram 23:23: INJ, Start He rm date: 11/17/18 17:23:00 RETURN CLERK, Stop date: 11/17/18 18:23:00 RETURN CLERK protamine 2019-0 No Route: IV, Me moria (ANES) 10 - Drug form: l mg 23:06: INJ, Start Dillon 00 date: 11/17/18 17:06:00 RETURN CLERK, Stop date: 11/17/18 18:06:00 RETURN CLERK calcium 2019-0 No Route: IV, Jb zachary chloride 2- Drug form: l (ANES) 23:03: INJ, ONCE, Rebeca Stop date: 11/17/18 17:03:00 RETURN CLERK heparin 2019-0 No Route: IV, Jb zachary (ANES) 2- Drug form: l 21:08: INJ, ONCE, Stop date: 11/17/18 15:08:00 RETURN CLERK lidocaine 2019-0 No Route: IV, Me moria (ANES) 2- Drug form: l 21:03: INJ, ONCE, Stop date: 11/17/18 15:03:00 RETURN CLERK propofol 2019-0 No Route: IV, Mem oria (ANES) 2- Drug form: l 20:44: INJ, ONCE, Stop date: 11/17/18 14:44:00 RETURN CLERK fentaNYL 2019-0 No Route: IV, Mem oria (ANES) 2- Drug form: l 20:44: INJ, ONCE, Stop date: 11/17/18 14:44:00 RETURN CLERK rocuronium 2019-0 No Route: IV, M emoria (ANES) 2-04 Drug form: l 20:44: INJ, ONCE, Stop date: 11/17/18 14:44:00 RETURN CLERK midazolam 2019-0 No Route: IV, Me moria (ANES) 2-04 Drug form: l 20:44: SOLN, [place] 00 ONCE, Stop date: 11/17/18 14:44:00 RETURN CLERK ceFAZolin 2019-0 No Route: IV, Me moria (ANES) 2-04 Drug form: l 20:38: INJ, ONCE, Stop date: 11/17/18 14:38:00 RETURN CLERK norepinephr No Route: IV, Memoria ine (ANES) 2- Drug form: l 10 20:35: INJ, Start Dillon microgram 00 date: 11/17/18 14:35:00 RETURN CLERK, Stop date: 11/17/18 15:35:00 RETURN CLERK vancomycin No Route: IV, M emoria (ANES) 1000 - Drug form: l mg 20:05: INJ, Start Dillon 00 date: 11/17/18 14:05:00 RETURN CLERK, Stop date: 11/17/18 15:05:00 RETURN CLERK tranexamic No Route: IV, M emoria acid (ANES) 2- Drug form: l 10 mg 20:00: INJ, Start Gatito n 00 date: 11/17/18 14:00:00 RETURN CLERK, Stop date: 11/17/18 15:00:00 RETURN CLERK Exparel No Notes: Memoria 2-04 (Same as: l 20:00: Exparel) Dillon NOT FOR IV use Postoperat rajan analgesia: [...] Lactated No Route: IV, Mem oria Ringers 2- Total l Injection 19:40: Volume: Rebeca nn IV (ANES) 00 500, Start 500 mL date: 11/17/18 13:40:00 RETURN CLERK, Stop date: 11/17/18 14:40:00 RETURN CLERK Isolyte S No Route: IV, Me moria PH 7.4 2-04 Total l (ANES) 1000 19:16: Volume: Her garza mL 00 1,000, Start date: 11/17/18 13:16:00 RETURN CLERK, Stop date: 11/17/18 14:16:00 RETURN CLERK Amylases No 1 cap, PO, Mem oria 89428 UNT / 2-01 TID, 0 l Endopeptida 17:00: Refill(s) H ermann [place] 02490 00 UNT / Lipase 05116 UNT Delayed Release Oral Capsule [Zenpep] rifaximin No 550 mg = 1 Me moria 550 MG Oral 2-01 tab, PO, l Tablet 17:00: BID, 0 [place] [XIFAXAN] 00 Refill(s) Lidocaine Yes 1 appl, Memor ia 25 MG/ML / 2-01 TOP, ONCE, l Prilocaine 17:00: # 30 gm, 0 H ermann 25 MG/ML 00 Refill(s) Topical Cream metoprolol 2019- No Q.5D 2 (two) [facility] (LOPRESSOR) 11-13 12-28 times [facility] - 50 MG 00:00: 00:00 daily. Medical tablet 00 :00 Center Levofloxaci No 250 mg = 1 Memoria n 250 MG 1-15 tab, PO, l Oral Tablet 20:39: Q48H, # 3 H ermann [Levaquin] 00 tab, 0 Refill(s), Pharmacy: [facility] [place] sucroferric 2017-10 No 500 mg = 1 Memoria oxyhydroxid 2-19 tab, PO, 0 l e 500 MG 16:52: Refill(s) Herm eliana Chewable 00 Tablet [Velphoro] gabapentin 2017-10 No [...] Mem oria 0-16 mL, l 17:55: Injection, [place] 00 IV, Once, first dose 07/29/17 12:55:00 CDT, stop date 07/29/17 12:55:00 CDT midazolam 2016-10 No 1 mg = 1 Jb zachary 0-16 mL, l 17:55: Injection, [place] 00 IV, Once, first dose 07/29/17 12:55:00 CDT, stop date 07/29/17 12:55:00 CDT fentaNYL 2016-10 No 50 mcg = 1 Mem oria 0-16 mL, l 17:44: Injection, [place] 00 IV, Once, first dose 07/29/17 12:44:00 CDT, stop date 07/29/17 12:44:00 CDT midazolam 2016-10 No 1 mg = 1 Jb zachary 0-16 mL, l 17:43: Injection, [place] 00 IV, Once, first dose 07/29/17 12:43:00 CDT, stop date 07/29/17 12:43:00 CDT ondansetron 2016-10 No 4 mg = 2 Me moria 0-16 mL, l 17:43: Injection, [place] 00 IV, Once, first dose 07/29/17 12:43:00 CDT, stop date 07/29/17 12:43:00 CDT Ethyl 2016-10 No 1 sprays, Memoria Chloride 1 0-16 [place], l ML/ML 17:00: TOP, Once, Gatito n Topical 00 first dose [place] 07/29/17 12:00:00 CDT, stop date 07/29/17 12:00:00 CDT Povidone-Io 2016-10 No 1 drops, Me moria dine 50 0-16 Soln, l MG/ML 17:00: Eye-Operat [place] Ophthalmic 00 rajan, Once, Solution first dose [Betadine] 07/29/17 12:00:00 CDT, stop date 07/29/17 12:00:00 CDT LR 500 mL 2016-10 No 500 mL, Memor ia 0-16 IV, 100 l 16:55: mL/hr, Dillon start date 07/29/17 11:55:00 CDT, Adult Eye Procedures or Pain Phenylephri 2016-10 No 1 drops, Me moria ne 0-16 Soln, l Hydrochlori 16:55: Eye-Operat [place] de 25 MG/ML 00 rajan, Ophthalmic q5min, [...] Mem oria 0-02 mL, l 16:06: Injection, [place] 00 IV, Once, first dose 07/15/17 11:06:00 CDT, stop date 07/15/17 11:06:00 CDT midazolam 2016-10 No 1 mg = 1 Jb zachary 0-02 mL, l 16:00: Injection, [place] 00 IV, Once, first dose 07/15/17 11:00:00 CDT, stop date 07/15/17 11:00:00 CDT fentaNYL 2016-10 No 50 mcg = 1 Mem oria 0-02 mL, l 16:00: Injection, [place] 00 IV, Once, first dose 07/15/17 11:00:00 CDT, stop date 07/15/17 11:00:00 CDT ondansetron 2016-10 No 4 mg = 2 Me moria 0-02 mL, l 16:00: Injection, [place] 00 IV, Once, first dose 07/15/17 11:00:00 CDT, stop date 07/15/17 11:00:00 CDT Ethyl 2016-10 No 1 sprays, Memoria Chloride 1 0-02 [place], l ML/ML 15:00: TOP, Once, Gat[place] n Topical 00 first dose [place] 07/15/17 10:00:00 CDT, stop date 07/15/17 10:00:00 [...] ne 0-02 Soln, l Hydrochlori 14:45: Eye-Operat [place] de 25 MG/ML 00 rajan, Ophthalmic q5min, [...] ia 0-02 IV, 100 l 14:44: mL/hr, [place] 00 start date 07/15/17 9:44:00 CDT, Adult Eye Procedures or Pain Lidocaine Yes joaquin, TOP, Mem oria Hydrochlori 9-30 TID, 0 l de 0.005 17:24: Refill(s) Herm eliana MG/MG 00 Topical Gel gabapentin Yes 300 mg = 1 M emoria 300 MG Oral 9-30 caps, l Capsule 17:24: Oral, [place] [Neurontin] 00 Daily, 0 Refill(s) finasteride 2017 Yes 5 mg = 1 Me moria 5 mg oral 9-30 tabs, l tablet 17:24: Oral, [place] 00 Daily, 0 Refill(s) Metoprolol 2017 Yes 50 mg, Memor ia 9-30 Oral, BID, l 17:23: 0 [place] 00 Refill(s) alfuzosin 2017 Yes 10 mg = 1 Mem oria 10 mg oral 9-30 tabs, l tablet, 17:23: Oral, [place] extended 00 Daily, 0 release Refill(s) Lovastatin 2017 Yes 10 mg, Memor ia 9-30 Oral, l 17:22: Daily, 0 [place] 00 Refill(s) amLODIPine 2017 Yes 10 mg = 1 Me moria 10 mg oral 9-30 tabs, l tablet 17:22: Oral, [place] 00 Daily, 0 Refill(s) metoprolol 2015-10 Yes [...] zachary -16 (Same as: l 22:27: Zofran) 00 MEDICATION WASTE Product Size: 4 mg Product Wasted: ___ mg Calcium 2014-10 No 1,000 mL, Memor ia Chloride 10-29 Rate: 125 l 0.0014 22:27: ml/hr, MEQ/ML / 00 Infuse Potassium over: 8 Chloride hr, Route: 0.004 IV, Dosing MEQ/ML / Weight Sodium 116.091 Chloride kg, Total 0.103 Volume: MEQ/ML / 1,000, Sodium Start Lactate date: 0.028 08/29/15 MEQ/ML 16:27:00, Injectable Duration: Solution 30 day, Stop date: 09/28/15 16:26:00 Labetalol 2014-10 No Notes: Memori a 1-16 (Same as: l 22:27: Normodyne, [place] 00 Trandate) Push over 2 minutes Give bolus over 2-3 minutes. Acetaminoph 2014-10 No Notes: Jb zachary en 10-29 Infuse l 22:27: over 15 minutes Do not exceed 4gm/day of acetaminop hen MEDICATION WASTE Product Size: 1000 mg Product Wasted: ___ mg Naloxone 2014-10 No Notes: Memoria 10-29 Same as l 22:27: Narcan Flumazenil 2014-10 No Notes: Memor ia 10-29 (Same as: l 22:27: Romazicon) Fentanyl 2014-10 No Notes: Memoria 10-29 (Same as: l 22:27: Sublimaze) Preservat rajan free. Ketorolac 2014-10 No 4 days Memor ia 10-29 l 22:27: MEDICATION WASTE Product Size: 30 mg Product Wasted: ___ mg Morphine 2014-10 No Notes: Memoria 10-29 (Same l 22:27: as:MORPhin e Sulfate) Hydromorpho 2014-10 No Notes: Jb zachary ne 10-29 (Same as: l 22:27: Dilaudid) Oxycodone 2014-10 No Notes: Memori a 10-29 (Same as: l 22:27: Roxicodone ) Ciprofloxac [...] mg = 1 Mem oria Sodium 100 1-16 cap, PO, l MG Oral 21:20: BID, PRN [place] n Capsule 00 Constipati [Colace] on, # 60 cap, 0 Refill(s) Acetaminoph 2014-10 No Notes: Jb zachary en 325 MG / 16 (Same as: l Hydrocodone 21:18: [place] Rebeca nn Bitartrate 00 325/5) Do 5 MG Oral not exceed Tablet 4gm/day of acetaminop hen. Morphine 2014-10 No Notes: Memoria 1-16 (Same l 21:18: as:MORPhin [place] 00 e Sulfate) Calcium 2014-10 No 1,000 mL, Memor ia Chloride 16 Rate: 25 l 0.0014 18:54: ml/hr, [place] MEQ/ML / 00 Infuse Potassium over: 40 Chloride hr, Route: 0.004 IV, Dosing MEQ/ML / Weight Sodium 118.182 Chloride kg, Total 0.103 Volume: MEQ/ML / 1,000, Sodium Start Lactate date: 0.028 08/29/15 MEQ/ML 12:54:00, Injectable Duration: Solution 30 day, Stop date: 09/28/15 12:53:00 BD Normal 2014-10 No Notes: Memori a Saline -16 (Same as: l Flush 12:00: BD [place] 00 Posiflush) Cipro 2014-10 No Notes: Do Memoria 1-16 not l 12:00: refrigerat [place] 00 e 168 HR 2014-10 Yes 1 patch, Memoria Clonidine 1-14 TOP, 0 l 0.13094 00:36: Refill(s) Rebeca nn MG/HR 00 Transdermal Patch Crestor 2014-10 Yes PO, Memoria 1-14 Bedtime, 0 l 00:35: Refill(s) [place] 00 ALFUZOSIN No ALFUZOSIN Mem oria ER 10MG TAB 1-28 ER 10MG l 00:00: TAB, 1 [place] 00 tab, Drug form: MISC, Route: PO, [...] 11-09 Route: PO, l 15:00: Drug form: [place] TAB, Daily, Dosing Weight 124.318, kg, Start date: 11/09/14 9:00:00, Duration: 30 day, Stop date: 12/08/14 9:00:00 Livalo No 4 mg, Memoria 11-09 Route: PO, l 15:00: Drug form: [place] 00 TAB, Daily, Dosing Weight 124.318, kg, Start date: 11/09/14 9:00:00, Duration: 30 day, Stop date: 12/08/14 9:00:00 Prinivil No Notes: Memoria 11-09 (Same as: l 15:00: Prinivil, Zestril) Avodart No Notes: Memoria 11-09 Non-Formul l 15:00: [facility]. (Same As: Avodart) (Do Not Crush) benazepril No 40 mg, Memor ia 11-09 Route: PO, l 15:00: Drug form: TAB, Daily, Dosing Weight 124.318, kg, Start [...] mg = 1 Memoria in 250 MG 1-27 tab, PO, l Oral Tablet 13:27: Q12H, # 6 H ermann [Cipro] 00 tab, 0 Refill(s) Phenazopyri Yes 200 mg = 1 Memoria dine 27 tab, PO, l hydrochlori 13:27: TID, # 9 He rmann de 200 MG 00 tab, 0 Oral Tablet Refill(s) [Pyridium] Docusate Yes 100 mg = 1 Mem oria Sodium 100 27 cap, PO, l MG Oral 13:27: BID, [place] Capsule 00 Constipati [Colace] on, # 20 cap, 0 Refill(s) tramadol Yes 1 - 2 Memoria hydrochlori -27 tabs, PO, l de 50 MG 13:27: Q4-6H, as Herm eliana Oral Tablet 00 needed for [Ultram] pain, # 30 tab, 0 Refill(s) Labetalol No Notes: Memori a 11-09 (Same as: l 05:26: Normodyne, [place] Trandate) Push over 2 minutes Give bolus over 2-3 minutes. Hydralazine No Notes: Jb zachary 11-09 (Same as: l 05:26: Apresoline [place] ) Push over 5 minutes Famotidine No Notes: Memor ia 11-09 (Same as: l 03:00: Pepcid) [place] 00 Ciprofloxac No Notes: Do M emoria in 10 MG/ML 11-09 not l Injectable 03:00: refrigerat H ermann Solution e Pravachol No Notes: Memori a 11-09 (Same as: l 03:00: Pravachol) [place] 00 Docusate No Notes: Memoria Sodium 100 11-08 (Same as: l MG Oral 23:00: Colace) [place] Capsule (Do Not Crush) Glipizide 5 No Notes: Jb zachary MG Oral 11-08 (Same as: l Tablet 23:00: Glucotrol) Rebeca nn 30 min before meals. montelukast No Notes: Jb zachary 11-08 (Same l 23:00: as:Singula [place] 00 ir) 10 ML No Notes: Memoria Cefazolin 11-08 (Same As: l 100 MG/ML 22:00: [place] Prefilled 00 Kefzol) Syringe Insulin, No Notes: Memoria Aspart, 11-08 Roll in l Human 21:45: palms of [place] 00 hands gently; Do not shake vigorously . (Same as: NovoLOG) "single patient use only" Stable for 28 days at room temperatur e. Expires in days from ____Date Dextrose No 25 gm, 50 Jb zachary 50% Syringe 11-08 mL, Route: l 21:45: IVP, Drug Form: INJ, Dosing Weight 124.318, kg, PRN, PRN Blood Glucose Results, Start date: 11/08/14 15:45:00, Duration: 30 day, Stop date: 12/08/14 15:44:00 Glucagon No 1 mg, Memoria 11-08 Route: IM, l 21:45: Drug form: PDR/INJ, PRN, Dosing Weight 124.318, kg, PRN [...] tab, PO, l tablet, 21:43: Daily, # Gtaito n extended 00 30 tab, 0 release Refill(s) metoprolol Yes 50 mg = 1 Me moria tartrate 50 -26 tab, PO, l mg oral 21:43: Daily, # Gat[place] n tablet 00 180 tab, 0 Refill(s) sitagliptin Yes 100 mg = 1 Memoria 100 MG Oral -26 tab, PO, l Tablet 21:43: Daily, # [place] [Januvia] 00 30 tab, 0 Refill(s) losartan Yes 100 mg = 1 Mem oria 100 mg oral -26 tab, PO, l tablet 21:43: Daily, # [place] 00 30 tab, 0 Refill(s) Glipizide 5 Yes 5 mg = 1 Me moria MG Oral -26 tab, PO, l Tablet 21:43: BID, # 30 Gatito n 00 tab, 0 Refill(s) pitavastati Yes 4 mg = 1 Me moria n 4 MG Oral 26 tab, PO, l Tablet 21:43: Daily, 0 [place] [Livalo] 00 Refill(s) Dutasteride Yes 0.5 mg = 1 Memoria 0.5 MG Oral 11-08 cap, PO, l Capsule 21:43: Daily, # [place] n [Avodart] 00 30 cap, 0 Refill(s) Irrigation No Notes: For Estrellita loyolaa w/ Normal 11-08 irrigation l Saline 19:18: [...] 11-08 Rate: 125 l 0.0014 17:35: ml/hr, [place] MEQ/ML / 00 Infuse Potassium over: 8 Chloride hr, Route: 0.004 IV, Dosing MEQ/ML / Weight Sodium 124.318 Chloride kg, Total 0.103 Volume: MEQ/ML / 1,000, Sodium Start Lactate date: 0.028 11/08/14 MEQ/ML 11:35:00, Injectable Duration: Solution 1 doses or times, Stop date: 11/09/14 3:34:00 Morphine No Notes: Memoria 11-08 (Same l 17:35: as:MORPhin [place] 00 e Sulfate) Meperidine No Notes: Memor ia 11-08 (Same as: l 17:35: Demerol) "Use Precaution in Elderly, Seizure disorders, and Renal impairment " Acetaminoph No Notes: Jb zachary en 11-08 Infuse l 17:35: over 15 [place] 00 minutes Do not exceed 4gm/day of acetaminop hen Metoprolol No Notes: Memor ia 11-08 (Same as: l 17:35: Lopressor) Push over 2 minutes Oxycodone No Notes: Memori a 11-08 (Same as: l 17:35: Roxicodone [place] 00 ) Labetalol No Notes: Memori a 11-08 (Same as: l 17:35: Normodyne, [place] 00 Trandate) Push over 2 minutes Give bolus over 2-3 minutes. Dulcolax No Notes: Memoria Laxative 11-08 (Same As: l 17:04: Dulcolax, Correctol) (Do Not Crush) "Do Not Crush" Diphenhydra No 25 mg, 1 Me moria mine 11-08 tab, l 17:04: Route: PO, [place] 00 Drug form: TAB, Bedtime, Dosing Weight 124.318, kg, PRN Insomnia, Start date: 11/08/14 11:04:00, Duration: 30 day, Stop date: 12/08/14 11:03:00 Promethazin No Notes: Do M emoria e 11-08 not give l 17:04: IV push. (Same as: Phenergan) Ondansetron No Notes: Jb zachary 11-08 (Same as: l 17:04: Zofran) [place] 00 Morphine No Notes: Memoria 11-08 (Same l 17:04: as:MORPhin [place] 00 e Sulfate) acetaminoph No Notes: Do M emoria en-codeine 11-08 not exceed l #3 17:04: 4gm/day of [place] 00 acetaminop hen. (Same as: Tylenol with Codeine # 3) Calcium No 1,000 mL, Memor ia Chloride 11-08 Rate: 125 l 0.0014 17:04: ml/hr, [place] MEQ/ML / 00 Infuse Potassium over: 8 Chloride hr, Route: 0.004 IV, Dosing MEQ/ML / Weight Sodium 124.318 Chloride kg, Total 0.103 Volume: MEQ/ML / 1,000, Sodium Start Lactate date: 0.028 11/08/14 MEQ/ML 11:04:00, Injectable Duration: Solution 30 day, Stop date: 12/08/14 11:03:00 Ciprofloxac No 400 mg, Mem oria in 2 MG/ML 11-08 Route: l Injectable 14:00: IVPBGatito Solution 00 [id number], [Cipro] Dosing Weight 127.136, kg, Start date: 11/08/14 8:00:00, Duration: 30 day, Stop date: 12/07/14 20:00:00 Calcium No 1,000 mL, [facility] ia Chloride 11-08 Rate: 25 l 0.0014 13:46: ml/hr, [place] MEQ/ML / 00 Infuse Potassium over: 40 Chloride hr, Route: 0.004 IV, Dosing MEQ/ML / Weight Sodium 127.136 Chloride kg, Total 0.103 Volume: MEQ/ML / 1,000, Sodium Start Lactate date: 0.028 11/08/14 MEQ/ML 7:46:00, Injectable Duration: Solution 1 doses or times, Stop date: 11/09/14 23:45:00 Levaquin No Notes: [facility] 11-08 (Same l 12:00: as:Levaqui [place] 00 n) BD No Notes: [facility] Posiflush 11-08 (Same as: l SF 12:00: BD [place] 00 Posiflush) alfuzosin No 10 mg = 1 Mem oria 10 mg oral 1-19 tab, PO, l tablet, 16:41: Daily, # [place] n extended 00 30 tab, 0 release Refill(s) montelukast No 10 mg = 1 M emoria 10 mg oral 1-19 tab, PO, l tablet 16:41: QPM, 0 [place] 00 Refill(s) metoprolol No 50 mg = 1 Me moria tartrate 50 -19 tab, PO, l mg oral 16:41: Daily, 0 [place] n tablet 00 Refill(s) Dutasteride No 0.5 mg = 1 [facility] 0.5 MG Oral 1-19 cap, PO, l Capsule 16:40: Daily, # [...] tab, PO, l tablet 16:38: Daily, # [place] 00 30 tab, 0 Refill(s) amlodipine Yes MARIAA 1 tab(s) [facility] 2-27 CHRYSTAL l 04:54: [place] 21 spironolact 2012-10 Yes MARIAA 1 tab(s) [facility] one 0-01 CHRYSTAL l 04:23: [place] 16 benazepril 2012-10 Yes MARIAA 1 tab(s) [facility] 0-01 CHRYSTAL l 04:23: [place] 16 metoprolol 2012-10 Yes MARIAA 1 tab(s) [facility] 0-01 CHRYSTAL l 04:23: [place] 16 Aspir 81 2012-10 Yes MARIAA 1 tab(s) Me moria 0-01 CHRYSTAL l 04:23: [place] 16 Pravastatin Yes MARIAA 1 tab(s) [facility] Sodium 7-30 CHRYSTAL l 00:00: [place] 00 losartan 2011-0 Yes MARIAA 1 tab(s) Me moria 1-17 CHRYSTAL l 00:00: [place] 00 Livalo No MARIAA 1 tab(s) Jb zachary 1-17 CHRYSTAL l 00:00: [place] 00 Vital Signs Vital Name Observation Time Observation Value Comments Source Systolic blood 2020-10-25 12:46:00 124 mm[Hg] [facility] Diastolic blood 2020-10-25 12:46:00 58 mm[Hg] [facility] Heart rate 2020-10-25 12:46:00 54 /min [facility] Body temperature 2020-10-25 12:46:00 35.94 Anya [facility] Respiratory rate 2020-10-25 12:46:00 14 /min [facility] Body height 2020-10-25 12:46:00 185.4 cm [facility] Body weight 2020-10-25 12:46:00 101.606 kg [facility] BMI 2020-10-25 12:46:00 29.55 kg/m2 [facility] Oxygen saturation in 2020-10-25 12:46:00 97 /min [facility] Arterial blood by Medical Ce nter Pulse oximetry Systolic (mm Hg) 2019-12-03 19:04:00 Jb rial [place] Diastolic (mm Hg) 2019-12-03 19:04:00 Mem orial [place] Heart Rate 2019-12-03 19:04:00 [facility] Oral (F) 2019-12-03 19:04:00 97.6 F [facility] [place] Height 2019-12-03 19:04:00 182.88 cm [facility] [place] Weight 2019-12-03 19:04:00 [facility] BMI Calculated 2019-12-03 19:04:00 Memori al [place] Systolic (mm Hg) 2019-10-01 15:58:00 Jb rial [place] Diastolic (mm Hg) 2019-10-01 15:58:00 Mem orial [place] Heart Rate 2019-10-01 15:58:00 [facility] [place] Height 2019-10-01 15:58:00 182.88 cm [facility] [place] Weight 2019-10-01 15:58:00 [facility] [place] BMI Calculated 2019-10-01 15:58:00 Memori al [place] Systolic (mm Hg) 2019-09-09 16:21:00 Jb rial [place] Diastolic (mm Hg) 2019-09-09 16:21:00 Mem orial [place] Heart Rate 2019-09-09 16:21:00 [facility] [place] Height 2019-09-09 16:21:00 185.42 cm [facility] [place] Weight 2019-09-09 16:21:00 [facility] [place] BMI Calculated 2019-09-09 16:21:00 [facility]ori al [place] Systolic (mm Hg) 2019-09-07 19:07:00 Jb rial [place] Diastolic (mm Hg) 2019-09-07 19:07:00 Mem orial [place] Heart Rate 2019-09-07 19:07:00 [facility] [place] Temperature Oral (F) 2019-09-07 19:07:00 97.3 F [facility] [place] Height 2019-09-07 19:07:00 185.42 cm [facility] [place] Weight 2019-09-07 19:07:00 [facility] [place] BMI Calculated 2019-09-07 19:07:00 [facility] al [place] Temperature Oral (F) 2019-09-03 04:58:00 98.0 F [facility] [place] Heart Rate 2019-09-03 04:58:00 [facility] [place] Respitory Rate 2019-09-03 04:58:00 [facility]ori al [place] Systolic (mm Hg) 2019-09-03 04:58:00 Jb rial [place] Diastolic (mm Hg) 2019-09-03 04:58:00 Mem orial [place] Systolic (mm Hg) 2019-09-03 01:32:00 Jb rial [place] Diastolic (mm Hg) 2019-09-03 01:32:00 Mem orial [place] Heart Rate 2019-09-03 01:32:00 [facility] [place] Respitory Rate 2019-09-03 01:32:00 [facility] al [place] Temperature Oral (F) 2019-09-03 01:32:00 98.1 F [facility] [place] Weight 2019-09-03 01:32:00 [facility] [place] Systolic (mm Hg) 2019-08-06 15:18:00 Jb rial [place] Diastolic (mm Hg) 2019-08-06 15:18:00 Mem orial [place] Heart Rate 2019-08-06 15:18:00 [facility] [place] Temperature Oral (F) 2019-08-06 15:18:00 98.2 F [facility] [place] Systolic (mm Hg) 2019-07-28 15:44:00 Jb rial [place] Diastolic (mm Hg) 2019-07-28 15:44:00 Mem orial [place] Heart Rate 2019-07-28 15:44:00 [facility] [place] Height 2019-07-28 15:44:00 182.88 cm [facility] [place] Weight 2019-07-28 15:44:00 [facility] [place] BMI Calculated 2019-07-28 15:44:00 [facility]ori al [place] Temperature Oral (F) 2019-07-28 15:44:00 97.5 F [facility] [place] BMI Calculated 2018-12-08 14:41:00 [facility] [place] Weight 2018-12-08 14:41:00 [facility] [place] Height 2018-12-08 14:41:00 185.42 cm [facility] [place] Systolic (mm Hg) 2018-11-25 19:00:00 Jb rial [place] Diastolic (mm Hg) 2018-11-25 19:00:00 Mem orial [place] Respitory Rate 2018-11-25 19:00:00 [facility]ori al [place] Systolic (mm Hg) 2018-11-25 18:30:00 Jb rial [place] Diastolic (mm Hg) 2018-11-25 18:30:00 Mem orial [place] Respitory Rate 2018-11-25 18:30:00 [facility] [place] Temperature Oral (F) 2018-11-25 18:30:00 97.6 F [facility] [place] Systolic (mm Hg) 2018-11-25 18:00:00 Jb rial [place] Diastolic (mm Hg) 2018-11-25 18:00:00 Mem orial [place] Respitory Rate 2018-11-25 18:00:00 [facility] [place] Temperature Oral (F) 2018-11-25 15:00:00 97.8 F [facility] [place] Temperature Oral (F) 2018-11-25 06:00:00 97.7 F [facility] [place] Height 2018-11-18 01:21:00 182.88 cm [facility] [place] Height 2018-11-18 00:44:00 182.88 cm [facility] [place] Weight 2018-11-17 17:18:00 [facility] [place] Height 2018-11-17 17:18:00 182.88 cm [facility] [place] BMI Calculated 2018-11-17 17:18:00 [facility] [place] Weight 2018-11-14 15:44:00 [facility] [place] BMI Calculated 2018-11-14 15:44:00 [facility] al [place] BMI Calculated 2018-10-30 21:00:00 [facility] al [place] Weight 2018-10-30 21:00:00 [facility] [place] Height 2018-10-30 21:00:00 185.42 cm [facility] [place] Height 2018-10-28 19:21:00 185.42 cm [facility] [place] BMI Calculated 2018-10-28 19:21:00 [facility] al [place] Weight 2018-10-28 19:21:00 [facility] [place] Systolic (mm Hg) 2018-10-01 17:58:00 Jb rial [place] Diastolic (mm Hg) 2018-10-01 17:58:00 Mem orial [place] BMI Calculated 2018-10-01 14:33:00 Memori al [place] Weight 2018-10-01 14:33:00 [facility] [place] Height 2018-10-01 14:33:00 185.42 cm [facility] [place] Temperature Oral (F) 2018-02-11 18:26:00 98.3 F [facility] [place] Heart Rate 2018-02-11 18:26:00 [facility] [place] Systolic (mm Hg) 2018-02-11 18:26:00 Jb rial [place] Diastolic (mm Hg) 2018-02-11 18:26:00 Mem orial [place] Systolic (mm Hg) 2017-07-29 18:05:00 Jb rial [place] Diastolic (mm Hg) 2017-07-29 18:05:00 Mem orial [place] Respitory Rate 2017-07-29 18:05:00 Memori al [place] Heart Rate 2017-07-29 18:05:00 [facility] [place] Temperature Oral (F) 2017-07-29 18:05:00 36.7 Anya [facility] [place] Height 2017-07-29 16:49:00 182.42 cm [facility] [place] Respitory Rate 2017-07-29 16:49:00 [facility]ori al [place] Temperature Oral (F) 2017-07-29 16:49:00 36.4 Anya [facility] [place] Systolic (mm Hg) 2017-07-29 16:49:00 Jb rial [place] Diastolic (mm Hg) 2017-07-29 16:49:00 Mem orial [place] Height 2017-07-27 22:25:00 182.42 cm [facility] [place] Systolic (mm Hg) 2017-07-15 16:30:00 Jb rial [place] Diastolic (mm Hg) 2017-07-15 16:30:00 Mem orial [place] Heart Rate 2017-07-15 16:30:00 [facility] [place] Respitory Rate 2017-07-15 16:30:00 Memori al [place] Systolic (mm Hg) 2017-07-15 14:47:00 Jb rial [place] Diastolic (mm Hg) 2017-07-15 14:47:00 Mem orial [place] Respitory Rate 2017-07-15 14:47:00 Memori al [place] Temperature Oral (F) 2017-07-15 14:47:00 36.1 Anya [facility] [place] Height 2017-07-15 14:47:00 182.42 cm [facility] [place] Systolic (mm Hg) 2015-08-29 22:30:00 Jb rial [place] Diastolic (mm Hg) 2015-08-29 22:30:00 Mem orial [place] Respitory Rate 2015-08-29 22:30:00 [facility]ori al [place] Respitory Rate 2015-08-29 22:15:00 Mem[facility] al [place] Systolic (mm Hg) 2015-08-29 22:15:00 Jb rial [place] Diastolic (mm Hg) 2015-08-29 22:15:00 Mem orial [place] Systolic (mm Hg) 2015-08-29 22:00:00 Jb rial [place] Diastolic (mm Hg) 2015-08-29 22:00:00 Mem orial [place] Respitory Rate 2015-08-29 22:00:00 Memori al [place] Heart Rate 2015-08-29 19:00:00 [facility] [place] Weight 2015-08-29 18:40:00 [facility] [place] BMI Calculated 2015-08-29 18:40:00 [facility] al [place] Height 2015-08-27 00:28:00 185.42 cm [facility] [place] Temperature Oral (F) 2014-11-10 17:28:00 98.2 F [facility] [place] Heart Rate 2014-11-10 17:28:00 [facility] [place] Respitory Rate 2014-11-10 17:28:00 Memori al [place] Diastolic (mm Hg) 2014-11-10 17:28:00 Mem orial [place] Systolic (mm Hg) 2014-11-10 17:28:00 Jb rial [place] Temperature Oral (F) 2014-11-10 13:41:00 98.0 F [facility] [place] Heart Rate 2014-11-10 13:41:00 [facility] [place] Respitory Rate 2014-11-10 13:41:00 Memori al [place] Systolic (mm Hg) 2014-11-10 13:41:00 Jb rial [place] Diastolic (mm Hg) 2014-11-10 13:41:00 Mem orial [place] Heart Rate 2014-11-10 10:42:00 [facility] [place] Respitory Rate 2014-11-10 10:42:00 Memori al [place] Diastolic (mm Hg) 2014-11-10 10:42:00 Mem orial [place] Systolic (mm Hg) 2014-11-10 10:42:00 Jb rial [place] Temperature Oral (F) 2014-11-10 10:42:00 98.1 F [facility] [place] Height 2014-11-08 22:55:00 185.42 cm [facility] [place] BMI Calculated 2014-11-08 22:55:00 Memori al [place] Weight 2014-11-08 22:55:00 [facility] [place] Weight 2014-11-08 13:50:00 [facility] [place] BMI Calculated 2014-11-08 13:50:00 [facility]ori al [place] Height 2014-11-01 16:36:00 185.42 cm [facility] [place] Temperature Oral (F) 2013-05-12 17:30:00 96.8 F [facility] [place] Weight 2013-05-12 17:30:00 [facility] [place] Respitory Rate 2013-05-12 17:30:00 Memori al [place] Heart Rate 2013-05-12 17:30:00 [facility] [place] Diastolic (mm Hg) 2013-05-12 17:30:00 Mem orial [place] Systolic (mm Hg) 2013-05-12 17:30:00 Jb catherine [place] Temperature Oral (F) 2013-05-12 16:30:00 96.8 F [facility] [place] Weight 2013-05-12 16:30:00 [facility] [place] Respitory Rate 2013-05-12 16:30:00 Memori al [place] Heart Rate 2013-05-12 16:30:00 [facility] [place] Diastolic (mm Hg) 2013-05-12 16:30:00 Mem orial [place] Systolic (mm Hg) 2013-05-12 16:30:00 Jb rial [place] Procedures Procedure Date / Time Performing Clinician Source Performed BASIC METABOLIC PANEL (7) 2020-10-10 16:21:00 ERICA Bishop I [facility] PROTHROMBIN TIME/INR 2020-10-10 16:21:00 [facility] CBC W/PLT COUNT & AUTO 2020-10-10 16:21:00 [facility] HEMODIALYSIS INPATIENT 2020-10-10 12:01:32 Verenice Romero [facility] PROTHROMBIN TIME/INR 2020-10-08 16:06:00 [facility] POCT-GLUCOSE METER 2020-10-07 10:28:00 [facility] HEMODIALYSIS INPATIENT 2020-10-07 09:12:40 Tameka Cruz [facility] CBC (HEMOGRAM ONLY) 2020-10-07 05:20:00 Krissy Mo [facility] PROTHROMBIN TIME/INR 2020-10-07 05:20:00 Krissy Mo [facility] BASIC METABOLIC PANEL (7) 2020-10-07 05:20:00 ERICA Bishop I [facility] MAGNESIUM 2020-10-07 05:20:[facility]OLIC [facility] (7) 2020-10-06 06:55:00 Krissy Mo [facility] MAGNESIUM 2020-10-06 06:55:00 Krissy Mo [facility] PHOSPHORUS 2020-10-06 06:55:00 Krissy Mo [facility] CBC (HEMOGRAM ONLY) 2020-10-06 06:55:00 Krissy Mo [facility] PROTHROMBIN TIME/INR 2020-10-06 06:55:00 Krissy Mo [facility] APTT 2020-10-06 06:55:00 [facility] APTT 2020-10-06 00:10:00 [facility] SARS-COV2/RT-PCR (SLHS & REF 2020-10-05 21:57:00 Krissy Mo [facility] LABS) [facility] POCT-GLUCOSE METER 2020-10-05 17:38:00 [facility] HEMODIALYSIS INPATIENT 2020-10-05 15:03:51 Audra Ann [facility] BASIC METABOLIC PANEL (7) 2020-10-05 05:02:00 Krissy Mo [facility] MAGNESIUM 2020-10-05 05:02:00 Krissy Mo [facility] PHOSPHORUS 2020-10-05 05:02:00 Krissy Mo [facility] IRON, TIBC, % SAT. (WITHOUT 2020-10-05 05:02:00 Walter Ann [facility] FERRITIN) [facility] FERRITIN 2020-10-05 05:02:00 Audra Ann [facility] PTH, INTACT 2020-10-05 05:02:00 [facility] CBC (HEMOGRAM ONLY) 2020-10-05 05:02:00 Krissy Mo [facility] PROTHROMBIN TIME/INR 2020-10-05 05:02:00 Krissy Mo [facility] APTT 2020-10-05 05:02:00 Krissy Mo [facility] OXYGEN SATURATION, MEASURED 2020-10-05 04:43:00 Selin Zuniga [facility] OXYGEN SATURATION, MEASURED 2020-10-04 20:50:00 Johnny Malone [facility] APTT 2020-10-04 20:50:00 Krissy Mo [facility] POCT-GLUCOSE METER 2020-10-04 18:16:00 Kumar Valdez [facility] OXYGEN SATURATION, MEASURED 2020-10-04 12:27:00 Whit Newsome [facility] APTT 2020-10-04 12:27:00 Krissy Mo [facility] POCT-GLUCOSE METER 2020-10-04 12:11:00 Kumar Valdez [facility] OXYGEN SATURATION, MEASURED 2020-10-04 05:30:00 Sonia Ramos Bernardlowell langley [facility] OXYGEN SATURATION, MEASURED 2020-10-04 03:16:00 Selin Zuniga [facility] BASIC METABOLIC PANEL (7) 2020-10-04 03:16:00 Krissy Mo I [facility] MAGNESIUM 2020-10-04 03:16:00 Krissy Mo [facility] PHOSPHORUS 2020-10-04 03:16:00 Krissy Mo [facility] CBC (HEMOGRAM ONLY) 2020-10-04 03:16:00 Krissy Mo [facility] PROTHROMBIN TIME/INR 2020-10-04 03:16:00 Krissy Mo [facility] APTT 2020-10-04 03:16:00 Krissy Mo [facility] HEMODIALYSIS INPATIENT 2020-10-04 00:10:00 Verenice Romero [facility] APTT 2020-10-03 20:15:00 Krissy Mo [facility] POCT-GLUCOSE METER 2020-10-03 17:34:00 Kumar Valdez [facility] 2D ECHO W/ DOPPLER 2020-10-03 12:56:55 Selin Zuniga [facility] (CW/PW/COLOR) [facility] OXYGEN SATURATION, MEASURED 2020-10-03 11:50:00 Selin Zuniga [facility] PLATELET COUNT 2020-10-03 11:50:00 Selin Zuniga [facility] APTT 2020-10-03 11:50:00 Selin Zuniga [facility] POCT-GLUCOSE METER 2020-10-03 11:14:00 Kumar Valdez [facility] XR CHEST 1 VIEW 2020-10-03 07:35:[address] [facility] - [facility] BASIC METABOLIC PANEL (7) 2020-10-03 04:36:00 Danae Shane Leann glen [facility] CBC (HEMOGRAM ONLY) 2020-10-03 04:36:00 Danae Shane Arturo [facility] MAGNESIUM 2020-10-03 04:36:00 Danae Shane [facility] PHOSPHORUS 2020-10-03 04:36:00 Danae Shane [facility] POCT-GLUCOSE METER 2020-10-02 17:04:00 Tish Woo [facility] POCT-GLUCOSE METER 2020-10-02 11:36:00 Tish Woo [facility] POCT-GLUCOSE METER 2020-10-02 08:11:00 Tish Woo [facility] CALCIUM, IONIZED 2020-10-02 04:43:00 Paul Quigley [facility] PH, ARTERIAL 2020-10-02 04:42:00 Danae Shane [facility] CBC (HEMOGRAM ONLY) 2020-10-02 04:41:00 Danea Shane [facility] MAGNESIUM 2020-10-02 04:41:00 Danae Shane [facility] PHOSPHORUS 2020-10-02 04:41:00 Danae Shane [facility] PT/APTT 2020-10-02 04:41:00 Karthikeyan Vigil [facility] BASIC METABOLIC PANEL (7) 2020-10-02 04:41:00 Paul Quigley [facility] BASIC METABOLIC PANEL (7) 2020-10-02 00:44:00 Paul Quigley [facility] CALCIUM, IONIZED 2020-10-02 00:44:00 Paul Quigley [facility] XR CHEST 1 VIEW 2020-10-02 00:42:00 Karthikeyan Vigil [facility] PORTABLE/BEDSIDE [facility] CALCIUM, IONIZED 2020-10-01 18:05:00 Honorio Cramer [facility] BASIC METABOLIC PANEL (7) 2020-10-01 18:05:00 Paul Quigley [facility] MAGNESIUM 2020-10-01 18:05:00 Danae Shane [facility] PH, ARTERIAL 2020-10-01 18:05:00 Danae Shane [facility] PHOSPHORUS 2020-10-01 18:05:00 Danae Shane [facility] THROMBOELASTOGRAPH (TEG) 2020-10-01 12:04:00 Julia Cerna a [facility] POTASSIUM 2020-10-01 10:48:00 Danae Shane [facility] MAGNESIUM 2020-10-01 10:48:00 Danae Shane [facility] PH, ARTERIAL 2020-10-01 10:48:00 Danae Shane [facility] PHOSPHORUS 2020-10-01 10:48:00 Danae Shane [facility] SODIUM 2020-10-01 10:48:00 Danae Shane [facility] CALCIUM, IONIZED 2020-10-01 10:48:00 Shoaib Honorio Tanvir [facility] PT/APTT 2020-10-01 10:48:00 Selin Zuniga [facility] BASIC METABOLIC PANEL (7) 2020-10-01 04:00:00 Danae Shane Leann glen [facility] CBC (HEMOGRAM ONLY) 2020-10-01 04:00:00 Danae Shane [facility] MAGNESIUM 2020-10-01 04:00:00 Finkdana Shane [facility] OXYGEN SATURATION, MEASURED 2020-10-01 04:00:00 Karthikeyan Vigil [facility] PHOSPHORUS 2020-10-01 04:00:00 Danae Shane [facility] HEPATIC FUNCTION PANEL 2020-10-01 04:00:00 Kumar Valdez [facility] LACTATE DEHYDROGENASE (LDH) 2020-10-01 04:00:00 Kumar Valdez Che [facility] PT/APTT 2020-10-01 04:00:00 Kumar Valdez [facility] LACTIC ACID, ARTERIAL 2020-10-01 04:00:00 Kumar Valdez [facility] FIBRINOGEN 2020-10-01 04:00:00 Kumar Valdez [facility] XR CHEST 1 VIEW 2020-10-01 00:31:00 Karthikeyan Vigil [facility] PORTABLE/BEDSIDE [facility] Center PH, ARTERIAL 2020-10-01 00:22:00 Danae Shane [facility] POTASSIUM 2020-10-01 00:22:00 Danae Shane [facility] POCT-GLUCOSE METER 2020-10-01 00:20:00 Tish Woo [facility] POTASSIUM 2020-09-30 20:56:00 Danae Shane [facility] MAGNESIUM 2020-09-30 20:56:00 Danae Shane, [facility] PHOSPHORUS 2020-09-30 20:56:00 Danae Shane, [facility] SODIUM 2020-09-30 20:56:00 Danae Shane [facility] CALCIUM, IONIZED 2020-09-30 20:56:00 Honorio Cramer [facility] POTASSIUM 2020-09-30 15:10:00 Danae Shane [facility] MAGNESIUM 2020-09-30 15:10:00 Danae Shane [facility] PH, ARTERIAL 2020-09-30 15:10:00 Danae Shane [facility] PHOSPHORUS 2020-09-30 15:10:00 Danae Shane [facility] SODIUM 2020-09-30 15:10[facility]00 [facility] 2020-09-30 15:10:00 Honorio Cramer [facility] POCT-GLUCOSE METER 2020-09-30 11:50:00 Chilo Millylowell [facility] APTT 2020-09-30 02:53:00 Lori Gustafson [facility] BASIC METABOLIC PANEL (7) 2020-09-30 02:53:00 Danae Shane [facility] CBC (HEMOGRAM ONLY) 2020-09-30 02:53:00 Danae Shane [facility] MAGNESIUM 2020-09-30 02:53:00 Danae Shane [facility] OXYGEN SATURATION, MEASURED 2020-09-30 02:53:00 Karthikeyan Vigil [facility] PHOSPHORUS 2020-09-30 02:53:00 Arturo Burr [facility] BLOOD GAS, ARTERIAL 2020-09-30 02:53:00 Karthikeyan Vigil [facility] XR CHEST 1 VIEW 2020-09-30 00:35:[address] [facility] PORT[facility]BEDSIDE Medical [place] POTASSIUM 2020-09-29 23:25:00 Danae Shane [facility] CALCIUM, IONIZED 2020-09-29 23:25:00 Honorio Cramer [facility] MAGNESIUM 2020-09-29 23:25:00 Krissy Mo [facility] POCT-GLUCOSE METER 2020-09-29 23:25:00 Tish Woo [facility] ECG 12-LEAD 2020-09-29 20:37:31 Unknown, Hl7 Doctor [facility] POTASSIUM 2020-09-29 19:40:00 Danae Shane [facility] MAGNESIUM 2020-09-29 19:40:00 Danae Shane [facility] PHOSPHORUS 2020-09-29 19:40:00 Danae Shane [facility] SODIUM 2020-09-29 19:40:00 Danae Shane [facility] POCT-GLUCOSE METER 2020-09-29 19:39:00 Tish Woo [facility] POCT-GLUCOSE METER 2020-09-29 18:13:00 Tish Woo [facility] POTASSIUM 2020-09-29 16:39:00 Danae Shane [facility] CALCIUM, IONIZED 2020-09-29 16:39:00 Honorio Cramer Ray [facility] POCT-GLUCOSE METER 2020-09-29 16:38:00 Tish Woo [facility] BLOOD GAS, ARTERIAL 2020-09-29 14:57:00 Diogenes [facility] SODIUM NA-STAT LAB 2020-09-29 14:57:00 Diogenes [facility] POTASSIUM-STAT LAB 2020-09-29 14:57:00 Diogenes [facility] GLUCOSE-STAT LAB 2020-09-29 14:57:00 Diogenes [facility] HGB/HCT (H&H) - STAT LAB 2020-09-29 14:57:00 Diogenes [facility] POTASSIUM 2020-09-29 11:46:00 Danae Shane [facility] POCT-GLUCOSE METER 2020-09-29 11:45:00 Tish Woo [facility] POCT-GLUCOSE METER 2020-09-29 10:27:00 Tish Woo [facility] POTASSIUM 2020-09-29 07:58:00 Danae Shane [facility] MAGNESIUM 2020-09-29 07:58:00 Danae Shane [facility] PH, ARTERIAL 2020-09-29 07:58:00 Danae Shane [facility] PHOSPHORUS 2020-09-29 07:58:00 Danae Shane [facility] SODIUM 2020-09-29 07:58:00 Danae Shane [facility] CALCIUM, IONIZED 2020-09-29 07:58:00 Honorio Cramer [facility] POCT-GLUCOSE METER 2020-09-29 05:37:00 Tish Woo [facility] POCT-GLUCOSE METER 2020-09-29 04:45:00 Tish Woo [facility] PROTHROMBIN TIME/INR 2020-09-29 03:21:00 Humera Hurtado [facility] APTT 2020-09-29 03:21:00 Janay Agustinrichie Obando [facility] BASIC METABOLIC PANEL (7) 2020-09-29 03:21:00 Leann Burr [facility] CBC (HEMOGRAM ONLY) 2020-09-29 03:21:00 Danae Shane Arturo [facility] MAGNESIUM 2020-09-29 03:21:00 Danae Shane [facility] OXYGEN SATURATION, MEASURED 2020-09-29 03:21[facility] 2020-09-29 03:21:00 Danae Shane [facility] LACTIC ACID, ARTERIAL 2020-09-29 03:21[facility]00 [facility], [facility]ERIAL 2020-09-29 03:21:00 Diogenes [facility] SODIUM NA-STAT LAB 2020-09-29 03:21:00 [facility] POTASSIUM-STAT LAB 2020-09-29 03:21:00 Diogenes [facility] GLUCOSE-STAT LAB 2020-09-29 03:21:00 [facility] HGB/HCT (H&H) - STAT LAB 2020-09-29 03:21:00 Diogenes [facility] HEPATIC FUNCTION PANEL 2020-09-29 03:21:00 Allison Ojeda [facility] XR CHEST 1 VIEW 2020-09-29 00:58:00 [facility] POCT-GLUCOSE METER 2020-09-29 00:04:00 Tish Woo [facility] POTASSIUM 2020-09-29 00:01:00 Danae Shane [facility] CALCIUM, IONIZED 2020-09-29 00:01:00 Honorio Craemr [facility] PREPARE PLASMA 2020-09-28 23:54:00 [facility] PREPARE RBC 2020-09-28 23:54:00 [facility] [facility] PREPARE PLATELETS 2020-09-28 23:54:00 [facility] PREPARE CRYOPRECIPITATE 2020-09-28 23:54:00 [facility] POCT-GLUCOSE METER 2020-09-28 20:05:00 [facility] SARS-COV2/RT-PCR (SL[facility] & REF 2020-09-28 20:01:00 Krissy Mo [facility] POTASSIUM 2020-09-28 20:01:00 Danae [facility] MAGNESIUM 2020-09-28 20:01:00 Danae [facility] PH, ARTERIAL 2020-09-28 20:01:00 Danae [facility] PHOSPHORUS 2020-09-28 20:01:00 [facility] 2020-09-28 20:01:00 [facility] 1 VIEW 2020-09-28 19:05:00 Sarath Arias [facility] s - PORTABLE/BEDSIDE [facility] POCT-GLUCOSE METER 2020-09-28 18:03:00 [facility] POCT-GLUCOSE METER 2020-09-28 17:01:00 [facility] POTASSIUM 2020-09-28 15:58:00 Danae [facility] CALCIUM, IONIZED 2020-09-28 15:58:00 Honorio Cramer [facility] LACTIC ACID, ARTERIAL 2020-09-28 15:58:00 Selin Zuniga [facility] POCT-GLUCOSE METER 2020-09-28 15:57:00 Tish Woo [facility] POCT-GLUCOSE METER 2020-09-28 15:10:00 Tish Woo [facility] POCT-GLUCOSE METER 2020-09-28 14:06:00 Tish Woo [facility] POCT-GLUCOSE METER 2020-09-28 12:01:00 Chilo [facility] POTASSIUM 2020-09-28 11:58:00 Arturo Burr [facility] LACTIC ACID, ARTERIAL 2020-09-28 11:58:00 Selin Zuniga [facility] POCT-GLUCOSE METER 2020-09-28 10:17:00 [facility] shawT[facility] 2D ECHO W/ DOPPLER 2020-09-28 10:17:00 Humera Hurtado [facility] (CW/PW/COLOR) [facility] POCT-GLUCOSE METER 2020-09-28 09:16:00 [facility] CALCIUM, IONIZED 2020-09-28 08:01:00 Honorio Cramer [facility] POCT-GLUCOSE METER 2020-09-28 08:00:00 DeniseTish [facility] XR CHEST 1 VIEW 2020-09-28 07:30:00 Selin Zuniga [facility] es - PORTABLE/BEDSIDE [facility] POCT-GLUCOSE METER 2020-09-28 06:54:00 Josef Ya [facility] POCT-GLUCOSE METER 2020-09-28 06:20:00 Josef Ya [facility] POCT-GLUCOSE METER 2020-09-28 05:14:00 Josef Ya [facility] CBC (HEMOGRAM ONLY) 2020-09-28 04:08:00 Bryant [facility] BASIC METABOLIC PANEL (7) 2020-09-28 04:08:00 Bryant [facility] PHOSPHORUS 2020-09-28 04:08:00 [facility] 2020-09-28 04:08:00 Bryant [facility] PROTHROMBIN TIME/INR 2020-09-28 04:08:00 [facility] OXYGEN SATURATION, MEASURED 2020-09-28 04:08:00 Lori Gustafson [facility] LACTIC ACID, ARTERIAL 2020-09-28 04:08:00 Lori Gustafson [facility] BLOOD GAS, ARTERIAL 2020-09-28 04:08:00 [facility] SODI[facility] NA-STAT LAB 2020-09-28 04:08:00 JanayLori cuadra [facility] POTASSIUM-STAT LAB 2020-09-28 04:08:00 JanayLori cuadra [facility] GLUCOSE-STAT LAB 2020-09-28 04:08:00 Lori Gustafson [facility] HGB/HCT (H&H) - STAT LAB 2020-09-28 04:08:00 Lori Gustafsona [facility] APTT 2020-09-28 04:08:00 JanayLori cuadra [facility] LACTIC ACID, ARTERIAL 2020-09-28 02:37:00 Janay Tanariane [facility] BLOOD GAS, ARTERIAL 2020-09-28 02:37:00 JanayLori cuadra Polycarp [facility] SODIUM NA-STAT LAB 2020-09-28 02:37:00 Janay, Lori [facility] POTASSIUM-STAT LAB 2020-09-28 02:37:00 JanayLori cuadra [facility] GLUCOSE-STAT LAB 2020-09-28 02:37:00 [facility]H) - STAT LAB 2020-09-28 02:37:00 JanayLori cuadraa rp [facility] CALCIUM, IONIZED 2020-09-28 02:37:00 [facility] XR CHEST 1 VIEW 2020-09-28 01:42:00 Thi Albarran [facility] PORTABLE/BEDSIDE [facility] LACTIC ACID, ARTERIAL 2020-09-27 23:59:00 [facility] BLOOD GAS, ARTERIAL 2020-09-27 23:59:00 [facility] SODIUM NA-STAT LAB 2020-09-27 23:59:00 [facility] POTASSIUM-STAT LAB 2020-09-27 23:59:00 JanayAgustinndabdi [facility] GLUCOSE-STAT LAB 2020-09-27 23:59:00 JanayAgustinndabdi Obando [facility] HGB/HCT (H&H) - STAT LAB 2020-09-27 23:59:00 JanayLori cuadraa rp [facility] XR CHEST 1 VIEW 2020-09-27 23:06:00 Drake Smith [facility] PORTABLE/BEDSIDE [facility] CALCIUM, IONIZED 2020-09-27 21:47:00 [facility]ay [facility] LACTIC ACID, ARTERIAL 2020-09-27 21:47:00 JanayAgustinndabdi [facility] BLOOD GAS, ARTERIAL 2020-09-27 21:47:00 Janay [facility] SODIUM NA-STAT LAB 2020-09-27 21:47:00 Janay, [facility] POTASSIUM-STAT LAB 2020-09-27 21:47:00 JanayEvelinee Polycarp [facility] GLUCOSE-STAT LAB 2020-09-27 21:47:00 Lori Gustafsonarp [facility] S [facility] HGB/HCT (H&H) - STAT LAB 2020-09-27 21:47:00 Lori Gustafson Polyca rp [facility] HEPATITIS B SURFACE ANTIGEN 2020-09-27 21:47:00 Geri Tran [facility] XR CHEST 1 VIEW 2020-09-27 19:57:[address] [facility] - PORTABLE/BEDSIDE [facility] LACTIC ACID, ARTERIAL 2020-09-27 19:54:00 Lori Gustafson [facility] BLOOD GAS, ARTERIAL 2020-09-27 19:52:00 Thi Albarran [facility] I [facility] CBC W/PLT COUNT & AUTO 2020-09-27 19:52:00 Lori Gustafson [facility] (CELLAVISION MANUAL DIFF) 2020-09-27 19:52:00 Lori Gustafson geraldo [facility] TROPONIN I 2020-09-27 19:50:[address] [facility] BASIC METABOLIC PANEL (7) 2020-09-27 19:50:00 Thi Albarran lla [facility] MAGNESIUM 2020-09-27 19:50:00 [facility]i [facility] PHOSPHORUS 2020-09-27 19:50:00 Thi Albarran [facility]select [facility] PROTHROMBIN TIME/INR 2020-09-27 19:50:00 Lori Gustafson C HI [facility] APTT 2020-09-27 19:50:00 Lori Gustafson Polycarp [facility] FIBRINOGEN 2020-09-27 19:50:00 Eveline Gustafsone Polycarp [facility] THROMBOELASTOGRAPH (TEG) 2020-09-27 19:50:00 Lori Gustafsona rp [facility] OXYGEN SATURATION, MEASURED 2020-09-27 19:50:00 Lori Gustafson ycarp [facility] TRANSFUSE PLASMA 2020-09-27 18:54:55 Branden [facility] CALCIUM, IONIZED 2020-09-27 18:50:16 [facility] BLOOD GAS, ARTERIAL 2020-09-27 18:50:16 Branden [facility] SODIUM NA-STAT LAB 2020-09-27 18:50:16 [facility] POT[facility]-STAT [facility] 2020-09-27 18:50:16 [facility] GLUCOSE-STAT LAB 2020-09-27 18:50:16 [facility] H[facility]/H[facility] (H&H) - STAT LAB 2020-09-27 18:50:16 Branden [facility] TRANSFUSE CRYOPRECIPITATE 2020-09-27 18:31:56 Branden [facility] TRANSFUSE CRYOPRECIPITATE 2020-09-27 18:26:54 Branden [facility] TRANSFUSE LEUKO-REDUCED 2020-09-27 18:20:27 Branden [facility] TRANSFUSE LEUKO-REDUCED RED 2020-09-27 18:16:01 Arvin Chaidez [facility] BLOOD CELLS [facility] TRANSFUSE LEUKO-REDUCED 2020-09-27 18:14:17 Branden [facility] ANESTHESIA GAMALIEL 2020-09-27 18:10:14 Branden [facility] POCT-ACT 2020-09-27 18:03:00 Josef Ya [facility] PROTHROMBIN TIME/INR 2020-09-27 17:57:[facility] 2020-09-27 17:57:04 [facility] FIBRINOGEN 2020-09-27 17:57:04 [facility] PLATELET COUNT 2020-09-27 17:57:04 Branden [facility] CALCIUM, IONIZED 2020-09-27 17:57:04 [facility] BLOOD GAS, ARTERIAL 2020-09-27 17:57:04 Otero, [facility] SODIUM NA-STAT LAB 2020-09-27 17:57:04 [facility] POTASSIUM-STAT LAB 2020-09-27 17:57:04 Otero, [facility] GLUCOSE-STAT LAB 2020-09-27 17:57:04 Otero, [facility] HGB/HCT (H&H) - STAT LAB 2020-09-27 17:57:04 [facility] CBC W/PLT COUNT & AUTO 2020-09-27 17:57:00 Thi Albarran [facility] TRANSFUSE LEUKO-REDUCED RED 2020-09-27 17:44:13 Arvin Chaidez [facility] BLOOD CELLS [facility] TRANSFUSE PLASMA 2020-09-27 17:38:18 Branden [facility] CALCIUM, IONIZED 2020-09-27 17:33:55 [facility] BLOOD GAS, ARTERIAL 2020-09-27 17:33:55 Branden [facility] SODIUM NA-STAT LAB 2020-09-27 17:33:55 [facility] POTASSIUM-STAT LAB 2020-09-27 17:33:55 Branden [facility] GLUCOSE-STAT LAB 2020-09-27 17:33:55 [facility] H[facility]/H[facility] (H&H) - STAT LAB 2020-09-27 17:33:55 [facility] POCT-ACT 2020-09-27 16:51:00 Josef Ya [facility] BLOOD GAS, ARTERIAL 2020-09-27 16:48:00 Diogenes [facility] SODIUM NA-STAT LAB 2020-09-27 16:48:00 [facility]OT[facility]-STAT LAB 2020-09-27 16:48:00 Diogenes [facility] GLUCOSE-STAT LAB 2020-09-27 16:48:00 Diogenes [facility] HGB/HCT (H&H) - STAT LAB 2020-09-27 16:48:00 Diogenes [facility] POCT-ACT 2020-09-27 16:12:00 [facility]oulou [facility] BLOOD GAS, ARTERIAL 2020-09-27 16:10:03 Diogenes, [facility] SODIUM NA-STAT LAB 2020-09-27 16:10:03 Diogenes, [facility] POTASSIUM-STAT LAB 2020-09-27 16:10:03 Diogenes [facility] GLUCOSE-STAT LAB 2020-09-27 16:10:03 Diogenes [facility] HGB/HCT (H&H) - STAT LAB 2020-09-27 16:10:03 Diogenes [facility] POCT-ACT 2020-09-27 15:43:00 Felton [facility] BLOOD GAS, ARTERIAL 2020-09-27 15:40:33 Diogenes [facility] SODIUM NA-STAT LAB 2020-09-27 15:40:33 Diogenes [facility] POTASSIUM-STAT LAB 2020-09-27 15:40:33 Diogenes, [facility] GLUCOSE-STAT LAB 2020-09-27 15:40:33 Diogenes [facility] HGB/HCT (H&H) - STAT LAB 2020-09-27 15:40:33 Diogenes [facility] POCT-ACT 2020-09-27 15:14:00 Felton [facility] BLOOD GAS, ARTERIAL 2020-09-27 15:11:58 Diogenes [facility] SODIUM NA-STAT LAB 2020-09-27 15:11:58 Diogenes [facility] POTASSIUM-STAT LAB 2020-09-27 15:11:58 Diogenes [facility] GLUCOSE-STAT LAB 2020-09-27 15:11:58 Diogenes [facility] HGB/HCT (H&H) - STAT LAB 2020-09-27 15:11:58 Diogenes [facility] POCT-ACT 2020-09-27 14:54:00 Josef Ya [facility] CALCIUM, IONIZED 2020-09-27 14:32:15 [facility] BLOOD GAS, ARTERIAL 2020-09-27 14:32:15 [facility] NA-STAT LAB 2020-09-27 14:32:15 [facility] POTASSIUM-STAT LAB 2020-09-27 14:32:15 [facility] GLUCOSE-STAT LAB 2020-09-27 14:32:15 [facility] HGB/HCT (H&H) - STAT LAB 2020-09-27 14:32:15 [facility] TRANSFUSE LEUKO-REDUCED RED 2020-09-27 13:45:01 [facility] TRANSFUSE LEUKO-REDUCED RED 2020-09-27 13:45:00 [facility] CALCIUM, IONIZED 2020-09-27 13:09:26 [facility] BLOOD GAS, ARTERIAL 2020-09-27 13:09:26 [facility] SODIUM NA-STAT LAB 2020-09-27 13:09:26 [facility] POTASSIUM-STAT LAB 2020-09-27 13:09:26 [facility] GLUCOSE-STAT LAB 2020-09-27 13:09:26 [facility] HGB/HCT (H&H) - STAT LAB 2020-09-27 13:09:26 Dm [facility] ABORH, MANUAL 2020-09-27 12:06:00 Radha Mccall [facility] BYPASS,AORTO CORONARY 2020-09-27 12:03:[address] [facility] LUCAS/SVG [facility] ENDOSCOPIC HARVEST,VEIN 2020-09-27 12:03:00 Diogenes [facility] GAMALIEL,3D 2020-09-27 12:03:00 [facility] TROPONIN I 2020-09-27 11:52:00 [facility] HEMOGLOBIN A1C 2020-09-27 11:52:00 Allison Ojeda [facility] APTT 2020-09-27 11:52:00 Lynette Allison [facility] TYPE AND SCREEN, AUTOMATED 2020-09-27 11:52:00 Allison Ojeda [facility] POCT-GLUCOSE METER 2020-09-27 11:00:00 [facility] IABP INSERTION MCR - IP 2020-09-27 08:49:[address] [facility] - PROC ONLY [facility] POCT-GLUCOSE METER 2020-09-27 08:13:00 [facility] CBC (HEMOGRAM ONLY) 2020-09-27 05:05:00 [facility] BASIC METABOLIC PANEL (7) 2020-09-27 05:05:00 [facility] PHOSPHORUS 2020-09-27 05:05:00 [facility] MAGNESIUM 2020-09-27 05:05:00 [facility] TROPONIN I 2020-09-27 05:05:00 Bryant, Humera [facility] B-TYPE NATRIURETIC FACTOR 2020-09-27 05:05:00 Bryant Humera [facility] (BNP) [facility] PROTHROMBIN TIME/INR 2020-09-27 05:05:00 BryantSilviaHumera [facility] APTT 2020-09-27 05:05:00 Krissy Mo [facility] LIPID PANEL 2020-09-27 05:05:00 Allison Ojeda [facility] XR CHEST 1 VIEW 2020-09-27 02:48:00 Humera Hurtado [facility] - PORTABLE/BEDSIDE [facility] POCT-GLUCOSE METER 2020-09-26 21:43:00 Humera Hurtado [facility] ECG 12-LEAD 2020-09-26 20:49:47 Unknown, Hl7 [facility] APTT 2020-09-26 20:42:00 Rosalio [facility] COMPREHENSIVE METABOLIC 2020-09-26 20:41:00 Humera Hurtado [facility] I [facility] MAGNESIUM 2020-09-26 20:41:[address] [facility] PHOSPHORUS 2020-09-26 20:41:[address] [facility] CBC W/PLT COUNT & AUTO 2020-09-26 20:41:00 Humera Hurtado [facility] POCT-GLUCOSE METER 2020-09-26 18:05:00 Rosalio [facility] VASCULAR DIAGRAM -SCAN 2020-09-26 00:00:00 Provider, Default [facility] CARDIAC CATH REPORT - SCAN 2020-09-26 00:00:00 Provider, [facility] REPORT OF PROCEDURE - 2020-09-26 00:00:00 Provider, Default [facility] ENDOSCOPY SCAN [facility] Measurement of post-voiding 2019-12-03 19:40:00 [facility] residual urine and/or bladder capacity by ultrasound, non-imaging Cystourethroscopy (separate 2019-10-01 16:30:00 [facility] procedure) Transurethral resection of 2015-08-29 06:00:00 M renard [facility] prostate Operation on prostate 2014-10-14 06:00:00 Delfin Carlos Colon operation<sup>1</sup> 2009-10-14 06:00:00 [facility] Appendectomy [facility] Cholecystectomy [facility] Operation [facility] AV - Aortic valve operation Jb [facility] Bilateral extraction of [facility] [place] cataracts Colectomy [facility] [place] [facility] Fistula left arm [facility] cataract surgery [facility] Plan of Care Planned Activity Planned Date Details Comments Source Future Scheduled 2021-03-[address] [facility] Test 00:[facility] [facility] (procedure) [code = 30722417] Future Scheduled 2020-10-[address] [facility] - Test 00:00:00 (12+) [code = Medical Center DEPRESSION SCREENING (12+)] Future Scheduled 2020-06-14 INFLUENZA VACCINE (#1) [facility] 00:00:00 [code = INFLUENZA Medical Ce nter VACCINE (#1)] Future Scheduled 2020-05-14 [facility] VACCINE [facility] 00:00:00 [code = INFLUENZA VACCINE] Future Scheduled 2010-08-[address] [facility] - Test 00:00:00 WELLNESS (YEAR 2 or Medical Center FIRST YEAR if no IPPE) [code = MEDICARE ANNUAL WELLNESS (YEAR 2 or FIRST YEAR if no IPPE)] Future Scheduled 2009 65+ PNEUMOCOCCAL [place] [facility] Test 00:00:00 VACCINE (1 of 1 - PPSV23) [code = 65+ PNEUMOCOCCAL VACCINE (1 of 1 - PPSV23)] Future Scheduled 1994 COL[place]OSCOPY [place]CRE[place]ING [facility] 00:00:00 [code = COLONOSCOPY SCREENING] Future Scheduled 1994 SHINGLES VACCINES (#1) [facility] 00:00:00 [code = SHINGLES VACCINES (#1)] Future Scheduled 1962 HEPATITIS C [facility] 00:[facility]00 [code = HEPATITIS C Medical Center SCREENING] Future Scheduled 1960 COVID-19 VACCINE (1 of [facility] 00:00:00 2) [code = COVID-19 VACCINE (1 of 2)] Future Scheduled 1954 DIABETIC EYE EXAM [facility] Test 00:00:00 [code = DIABETIC EYE Medical Center EXAM] Future Scheduled [address] [facility] - Test 00:00:00 examination Medical Center (regime/therapy) [code = 978641953] Future Scheduled 1954 Urine screening for [facility] - Test 00:00:00 protein (procedure) Medical Center [code = 264472864] Future Scheduled 1951 DTAP/TDAP/TD VACCINES [facility] Test 00:00:00 (1 - Tdap) [code = Medical C enter DTAP/TDAP/TD VACCINES (1 - Tdap)] Encounters Start End Encounter Admission Attending Care Care Encounter Source Date/Time Date/Time Type Type Clinicians Facility Department ID 2020-10-26 2020-10-26 Outpatient Paulette Miguel [facility] [id number] 09:15:00 09:15:00 28 2020-09-22 2020-09-22 Outpatient Miguel Caldwell [facility] [id number] 09:15:00 09:15:00 26 2020-08-08 2020-08-08 Outpatient Miguel Caldwell [facility] [id number] 11:00:00 11:00:00 22 2019-12-03 2019-12-03 Outpatient Miguel Caldwell [facility] [id number] 13:45:00 23:59:59 27 2019-11-03 2019-11-03 Outpatient Miguel Caldwell [facility] [id number] 13:45:00 13:45:00 19 2019-10-01 2019-10-01 Outpatient Miguel Caldwell [facility] [id number] 10:30:00 23:59:59 24 2019-09-09 2019-09-09 Outpatient CEDRIC Platt [facility] [id number] 11:00:00 23:59:59 Mallory Keating 25 2019-09-07 2019-09-07 Outpatient CEDRIC Platt [facility] [id number] 13:15:00 23:59:59 Mallory Keating 23 2019 2019 Outpatient Ravin, MHSL MHSL [id number] 19:09:24 23:00:00 Rolf Tran 2019 2019 Emergency E MHFB MHFB [id number] MHFB 19:09:00 19:09:00 2019-08-06 2019-08-06 Outpatient Miguel Caldwell [facility] [id number] 11:00:00 23:59:59 21 2019-07-28 2019-07-28 Outpatient Miguel Caldwell [facility] [id number] 14:00:00 23:59:59 20 2019-06-30 2019-07-01 Outpatient MHMG MHMG [id number] 12:14:38 23:59:59 04 2018-12-08 2018-12-08 [facility] [id number] 08:37:00 23:59:00 Neema Stewart 19 2018-11-17 2018-11-25 [facility] [id number] 08:31:00 14:50:00 Neema Stewart 16 2018-10-30 2018-10-30 Outpatient ROSA ELENA Kapadia [facility] [id number] 14:41:00 23:59:00 Cindy Monroy 17 2018-10-28 2018-10-28 Outpatient Miguel Caldwell [facility] [id number] 13:45:00 23:59:59 18 2018-10-01 2018-10-01 Outpatient Jagjit [facility] [id number] 08:33:00 23:59:00 Liborio Marin 14 2018-08-19 2018-08-19 Outpatient Miguel Caldwell [facility] [id number] 13:45:00 13:45:00 17 2018-08-19 2018-08-19 Outpatient Miguel Caldwell [facility] [id number] 10:15:00 10:15:00 16 2018-02-11 2018-02-11 Outpatient Miguel Caldwell [facility] [id number] 14:15:00 23:59:59 15 2018-02-11 2018-02-11 Outpatient Miguel Caldwell [facility] [id number] 14:15:00 23:59:59 15 2018-02-03 2018-02-04 Outpatient MHMG MH[facility] [id number] 10:45:00 23:59:59 02 2017-07-29 2017-07-29 Outpatient Davian, [id number] 11:35:40 13:15:00 Rivera R 8 2017-07-15 2017-07-15 Outpatient Davian, [id number] 09:09:59 11:45:00 Rivera R 8 2015-09-19 2015-09-19 Outpatient Taqueriaykl, MH29 MH29 [id number] 12:41:00 23:59:00 Mallory Keating 00 2015-08-29 2015-08-29 Outpatient Mucher, MHSL MHSL [id number] 10:37:00 17:25:00 Jeovanny 05 Mt 2014-11-09 2014-11-10 Outpatient Albaer MHIE MHIE [id number] 16:13:00 13:55:00 Jeovanny 03 Mt 2013-12-15 2013-12-15 Outpatient [facility] [id number] alWork s Group Group 2013-05-12 2013-05-12 Outpatient [facility] [id number] eClinic 11:30:00 11:30:00 Medical Medical alWork s Group Group Results Test Description Test Time Test Comments Results Result Sourc e Comments CARDIAC CATH 2020-10-[address] [facility] REPORT - SCAN 06:36:24 unspecified - Medical provider. Center VASCULAR DIAGRAM 2020-10-19 [facility] -[facility] 06:36:13 unspecified - Medical provider. Center CBC with platelet count + automated diff 2020-10-10 17:56:00 Test Item Value Reference Range Interpretation Comme nts WBC (test code = 6690-2) 13.7 3.5- 10.5 K/L H RBC (test code = 789-8) 3.21 4.63- 6.08 M/L L MCHC (test code = 786-4) 31.0 32.3- 36.5 GM/DL L Hematocrit (test code = 4544-3) 31.0 % 40.1-51 L MCV (test code = 787-2) 96.6 fL 79-92.2 H MCH (test code = 785-6) 29.9 pg 25.7-32.2 RDW (test code = 788-0) 16.4 % 11.6-14.4 H Platelets (test code = 777-3) 231 150- 450 K/CU MM MPV (test code = 07656-4) 11.0 fL 9.4-12.4 nRBC (test code = 413) 0 0- 0 /100 WBC % Neutros (test code = 429) 80 % % Lymphs (test code = 430) 9 % % Monos (test code = 431) 5 % % Eos (test code = 432) 5 % % Baso (test code = 437) 1 % # Neutros (test code = 670) 10.94 1.78- 5.38 K/L H # Lymphs (test code = 414) 1.21 1.32- 3.57 K/L L # Monos (test code = 415) 0.71 0.30- 0.82 K/L # Eos (test code = 416) 0.67 0.04- 0.54 K/L H # Baso (test code = 417) 0.08 0.01- 0.08 K/L Immature Granulocytes-Relative (test code = 2801) 0 % 0-1 Lab Interpretation (test code = 03148-1) Abnormal [facility] W/PLT COUNT & AUTO [id number] 17:56:00 Test Item Value Reference Range Interpretation Comments WHITE BLOOD CELL COUNT (BEAKER) 13.7 K/ L 3.5-10.5 H (test code = 775) RED BLOOD CELL COUNT (BEAKER) 3.21 M/ L 4.63-6.08 L (test code = 761) HEMOGLOBIN (BEAKER) (test code = 9.6 GM/DL 13.7-17.5 L 410) HEMATOCRIT (BEAKER) (test code = 31.0 % 40.1-51.0 L 411) MEAN CORPUSCULAR VOLUME (BEAKER) 96.6 fL 79.0-92.2 H (test code = 753) MEAN CORPUSCULAR HEMOGLOBIN 29.9 pg 25.7-32.2 (BEAKER) (test code = 751) MEAN CORPUSCULAR HEMOGLOBIN CONC 31.0 GM/DL 32.3-36.5 L (BEAKER) (test code = 752) RED CELL DISTRIBUTION WIDTH 16.4 % 11.6-14.4 H (BEAKER) (test code = 412) PLATELET COUNT (BEAKER) (test 231 K/CU MM 150-450 code = 756) MEAN PLATELET VOLUME (BEAKER) 11.0 fL 9.4-12.4 (test code = 754) NUCLEATED RED BLOOD CELLS 0 /100 WBC 0-0 (BEAKER) (test code = 413) NEUTROPHILS RELATIVE PERCENT 80 % (BEAKER) (test code = 429) LYMPHOCYTES RELATIVE PERCENT 9 % (BEAKER) (test code = 430) MONOCYTES RELATIVE PERCENT 5 % (BEAKER) (test code = 431) EOSINOPHILS RELATIVE PERCENT 5 % (BEAKER) (test code = 432) BASOPHILS RELATIVE PERCENT 1 % (BEAKER) (test code = 437) NEUTROPHILS ABSOLUTE COUNT 10.94 K/ L 1.78-5.38 H (BEAKER) (test code = 670) LYMPHOCYTES ABSOLUTE COUNT 1.21 K/ L 1.32-3.57 L (BEAKER) (test code = 414) MONOCYTES ABSOLUTE COUNT (BEAKER) 0.71 K/ L 0.30-0.82 (test code = 415) EOSINOPHILS ABSOLUTE COUNT 0.67 K/ L 0.04-0.54 H (BEAKER) (test code = 416) BASOPHILS ABSOLUTE COUNT (BEAKER) 0.08 K/ L 0.01-0.08 (test code = 417) IMMATURE GRANULOCYTES-RELATIVE 0 % 0-1 PERCENT (BEAKER) (test code = 2801) Prothrombin time/[id number] 17:00:00 Test Item Value Reference Range Interpretation Comments Protime (test code = 29.0 11.9- 14.2 H 5902-2) seconds INR (test code = 2.82 <=5.90 6301-6) SID (test code = SID) Effective 03/11/2019: PT Reference Range ChangeNew: 11.9-14.2 Previous: 11.7-14.7 RECOMMENDED COUMADIN/WARFARIN INR THERAPY RANGESSTANDARD DOSE: 2.0-3.0 Includes: PROPHYLAXIS for venous thrombosis, systemic embolization; TREATMENT for venous thrombosis and/or pulmonary embolus.HIGH RISK: Target INR is 2.5-3.5 for patients wiht mechanical heart valves. Lab Interpretation Abnormal (test code = 39100-2) [facility]/[id number] 17:00:00 Test Item Value Reference Range Interpretation Comments PROTIME (BEAKER) (test code = 29.0 seconds 11.9-14.2 H 759) INR (BEAKER) (test code = 370) 2.82 <=5.90 Effective 03/11/2019: PT Reference Range ChangeNew: 11.9-14.2 Previous: 11.7- 14.7RECOMMENDED COUMADIN/WARFARIN INR THERAPY RANGESSTANDARD DOSE: 2.0-3.0 Includes: PROPHYLAXIS for venous thrombosis, systemic embolization; TREATMENT for venous thrombosis and/or pulmonary embolus.HIGH RISK: Target INR is2.5-3.5 for patients wiht mechanical heart valves.Basic Metabolic [id number] 16:55:00 Test Item Value Reference Range Interpretation Comments Sodium (test code = 137 meq/L 779-383 8131-2) Potassium (test code = 5.0 meq/L 3.5-5.1 2823-3) Chloride (test code = 99 meq/L 98-107 2075-0) CO2 (test code = 31 meq/L 22-29 H 2028-9) BUN (test code = 40 mg/dL 7-21 H 3094-0) Creatinine (test code 5.55 mg/dL 0.57-1.25 H = 2160-0) Glucose (test code = 143 mg/dL 70-105 H 2345-7) Calcium (test code = 10.8 mg/dL 8.4-10.2 H 64052-2) EGFR (test code = 10 mL/min/1.73 [place] [address]-5) NOT ACCURATE CREATININE CLEARANCE IN PREDICTING GLOMERULAR FILTRATION RATE . ESTIMATED GFR I S NOT APPLICABLE FOR DIALYSIS PATIENTS. SID (test code = SID) Credit Or Loans Officer ID - BS Lab Interpretation Abnormal (test code = 60023-1) [facility] METABOLIC [id number] 16:55:00 Test Item Value Reference Range Interpretation Comments SODIUM (BEAKER) 137 meq/L 136-145 (test code = 381) POTASSIUM (BEAKER) 5.0 meq/L 3.5-5.1 (test code = 379) CHLORIDE (BEAKER) 99 meq/L 98-107 (test code = 382) CO2 (BEAKER) (test 31 meq/L 22-29 H code = 355) BLOOD UREA NITROGEN 40 mg/dL 7-21 H (BEAKER) (test code = 354) CREATININE (BEAKER) 5.55 mg/dL 0.57-1.25 H (test code = 358) GLUCOSE RANDOM 143 mg/dL 70-105 H (BEAKER) (test code = 652) CALCIUM (BEAKER) 10.8 mg/dL 8.4-10.2 H (test code = 697) EGFR (BEAKER) (test 10 mL/min/1.73 ESTIMA DUANE GFR IS code = 1092) sq m NOT ACCURATE CREATININE CLEARANCE IN PREDICTING GLOMERULAR FILTRATION RATE . ESTIMATED GFR I S NOT APPLICABLE FOR DIALYSIS PATIEN TS. Credit Or Loans Officer ID - BSHEMODIALYSIS [id number] 12:01:32Joey Aviles RN 10/10/2020 12:03 PM - S/P Hemodialysis x 3 hours - Removed 2 L as tolerated. - AVF + B/T, no s/sx of infection noted. No edema/petechiae on site. Bleeding stopped on both arterial and venous access, applied new gauze and taped securely. - Consent verified prior to initiation oftreatment. - Report given to primary nurse. Patient stable post HD. Lab Results Component Value Date WBC 12.2 (H) 10/07/2020 HGB 9.2 (L) 10/07/2020 HCT 29.6 (L) 10/07/2020 MCV 96.1 (H) 10/07/2020PLT 207 10/07/2020 Lab Results Component Value Date GLUCOSE 105 10/07/2020 CALCIUM 12.4 (H) 10/07/2020 NA 137 10/07/2020 K 5.1 10/07/2020 CO2 26 10/07/2020 CL 100 10/07/2020 BUN 51 (H) 10/07/2020 CREATININE 6.33 (H) 10/07/2020 Joey WARE, RN II7S6- Adult [id number]PROTHROMBIN TIME/[id number] 16:36:00 Test Item Value Reference Range Interpretation Comments PROTIME (BEAKER) (test code = 26.9 seconds 11.9-14.2 H 759) INR (BEAKER) (test code = 370) 2.56 <=5.90 Effective 03/11/2019: PT Reference Range ChangeNew: 11.9-14.2 Previous: 11.7- 14.7RECOMMENDED COUMADIN/WARFARIN INR THERAPY RANGESSTANDARD DOSE: 2.0-3.0 Includes: PROPHYLAXIS for venous thrombosis, systemic embolization; TREATMENT for venous thrombosis and/or pulmonary embolus.HIGH RISK: Target INR is2.5-3.5 for patients wiht mechanical heart valves.POC-Glucose [id number] 10:40:00 Test Item Value Reference Range Interpretation Comments POC-Glucose Meter (test 112 mg/dL 70-110 H : TE STED AT [facility] code = 1538) [address] [facility] [place], [address]: Credit Or Loans Officer/Techni sandi ID = [id number] for Joey Aviles Lab Interpretation (test Abnormal code = 37113-2) [facility]POCT[facility]UCOSE [id number] 10:40:00 Test Item Value Reference Range Interpretation Comments POC-GLUCOSE METER 112 mg/dL 70-110 H : TESTED A T [facility] 67[address] (BEAKER) (test code = [place], 1538) [address]: Credit Or Loans Officer/Techni sandi ID = [id number] for Joey Merlos BASIC METABOLIC [id number] 06:35:00 Test Item Value Reference Range Interpretation Comments SODIUM (BEAKER) 137 meq/L 136-145 (test code = 381) POTASSIUM (BEAKER) 5.1 meq/L 3.5-5.1 (test code = 379) CHLORIDE (BEAKER) 100 meq/L 98-107 (test code = 382) CO2 (BEAKER) (test 26 meq/L 22-29 code = 355) BLOOD UREA NITROGEN 51 mg/dL 7-21 H (BEAKER) (test code = 354) CREATININE (BEAKER) 6.33 mg/dL 0.57-1.25 H (test code = 358) GLUCOSE RANDOM 105 mg/dL 70-105 (BEAKER) (test code = 652) CALCIUM (BEAKER) 12.4 mg/dL 8.4-10.2 H (test code = 697) EGFR (BEAKER) (test 9 mL/min/1.73 ESTIMAT ED GFR IS code = 1092) sq m NOT ACCURATE CREATININE CLEARANCE IN PREDICTING GLOMERULAR FILTRATION RATE . ESTIMATED GFR I S NOT APPLICABLE FOR DIALYSIS PATIEN TS. Credit Or Loans Officer ID - UYYLNZgzvupgtu4204-57-07 06:07:00 Test Item Value Reference Range Interpretation Comments Magnesium (test code = 2.4 mg/dL 1.6-2.6 80770-0) SID (test code = SID) Credit Or Loans Officer ID - EDASI Lab Interpretation (test Normal code = 03380-8) [facility]MAGN[facility]IUM2020-[facility]-25 06:07:00 Test Item Value Reference Range Interpretation Comments MAGNESIUM (BEAKER) (test code = 2.4 mg/dL 1.6-2.6 627) Credit Or Loans Officer ID - EDASIPROTHROMBIN TIME/[id number] 06:02:00 Test Item Value Reference Range Interpretation Comments PROTIME (BEAKER) (test code = 23.0 seconds 11.9-14.2 H 759) INR (BEAKER) (test code = 370) 2.10 <=5.90 Effective 03/11/2019: PT Reference Range ChangeNew: 11.9-14.2 Previous: 11.7- 14.7RECOMMENDED COUMADIN/WARFARIN INR THERAPY RANGESSTANDARD DOSE: 2.0-3.0 Includes: PROPHYLAXIS for venous thrombosis, systemic embolization; TREATMENT for venous thrombosis and/or pulmonary embolus.HIGH RISK: Target INR is2.5-3.5 for patients wiht mechanical heart valves.While on warfarin.CBC (hemogram only) 2020-10-07 05:35:00 Test Item Value Reference Range Interpretation Comments WBC (test code = 6690-2) 12.2 3.5- 10.5 K/L H RBC (test code = 789-8) 3.08 4.63- 6.08 M/L L MCHC (test code = 786-4) 31.1 32.3- 36.5 GM/DL L Hematocrit (test code = 4544-3) 29.6 % 40.1-51 L MCV (test code = 787-2) 96.1 fL 79-92.2 H MCH (test code = 785-6) 29.9 pg 25.7-32.2 RDW (test code = 788-0) 16.3 % 11.6-14.4 H Platelets (test code = 777-3) 207 150- 450 K/CU MM MPV (test code = 62818-4) 10.6 fL 9.4-12.4 nRBC (test code = 413) 0 0- 0 /100 WBC Lab Interpretation (test code = Abnormal 28688-2) [facility]2020-10-07 05:35:00 Test Item Value Reference Range Interpretation Comments WHITE BLOOD CELL COUNT (BEAKER) 12.2 K/ L 3.5-10.5 H (test code = 775) RED BLOOD CELL COUNT (BEAKER) 3.08 M/ L 4.63-6.08 L (test code = 761) HEMOGLOBIN (BEAKER) (test code = 9.2 GM/DL 13.7-17.5 L 410) HEMATOCRIT (BEAKER) (test code = 29.6 % 40.1-51.0 L 411) MEAN CORPUSCULAR VOLUME (BEAKER) 96.1 fL 79.0-92.2 H (test code = 753) MEAN CORPUSCULAR HEMOGLOBIN 29.9 pg 25.7-32.2 (BEAKER) (test code = 751) MEAN CORPUSCULAR HEMOGLOBIN CONC 31.1 GM/DL 32.3-36.5 L (BEAKER) (test code = 752) RED CELL DISTRIBUTION WIDTH 16.3 % 11.6-14.4 H (BEAKER) (test code = 412) PLATELET COUNT (BEAKER) (test 207 K/CU MM 150-450 code = 756) MEAN PLATELET VOLUME (BEAKER) 10.6 fL 9.4-12.4 (test code = 754) NUCLEATED RED BLOOD CELLS 0 /100 WBC 0-0 (BEAKER) (test code = 413) SARS-CoV2/RT-PCR (Asymptomatic ONLY)2020-10-06 11:17:00 Test Item Value Reference Range Interpretation Comments SARS-COV2/RT-PCR Negative Not Detected, (test code = Negative, See 76455-3) external report for linked test SARS-COV-2 [facility] PERFORMING LAB (test code = 57932-5) SID (test code = Negative result for this SID) test determines that SARS-CoV-2 RNA was not present in the [...] of the Act. Fact Sheet for Healthcare Providers:https://www.Work4ce.me/sites/default/f veronica/product/documents/F act_Sheet_HC_Providers_L ysp_AKYK-KgW-9.pdf Fact Sheet for Healthcare Patients:https://www.Humacyte/sites/default/fi les/product/documents/Fa ct_Sheet_Patients_Lyra_S ARS-CoV-2.pdf Performing Laboratory:[facility]OV2/RT-PCR ([facility])2020-10-06 11:17:00 Test Item Value Reference Range Interpretation Comments SARS-COV2/RT-PCR (test Negative Not Detected, Negative, code = 7942044) See external report for linked test SARS-COV-2 PERFORMING LAB [facility] (test code = 6183075) Negative result for this test determines that SARS-CoV-2 RNA was not present in the specimen above the Limit of Detection (LOD). However, Negative results do not preclude SARS-CoV-2 infection and should not be used as the sole basis for treatment or patient management decisions. Negative results mustbe combined with clinical observations, patient history, and epidemiological information. A false negative result may occur if a specimen is improperly collected, transported or handled. A false negative result should be considered if patient's recent exposures or clinical presentation indicate that COVID-19 (SARS-CoV-2) is likely and diagnostic tests for other causes of illness are negative. Re-testing should be considered in cases of suspected false negatives.The limit of detection for this assay is 800 copies/mL.This SARS CoV-2 test is a real-time RT-PCR test intended for the qualitative detection of nucleic acid from SARS-CoV-2 in a nasopharyngeal swab specimen collected from individuals susp ected of COVID-19 by their healthcare provider.This test has not been Food and Drug [...] is revoked under Section 564(g) of the Act.Fact Sheet for Healthcare Providers:https://www.GOWEX/sites/default/files/product/documents/Fact_Shee k_XG_Donyaxsae_Rpwm_TMJH-YtM-7.pdfFact Sheet for Healthcare Patients:https://www.GOWEX/sites/default/files/product/ documents/Taty_Ukjko_Idkfkeqq_Tgbi_LULV-CgC-8.pdfPerforming Laboratory:[facility], [place] [address]SLQGV METABOLIC PANEL 2020-10-06 07:40:00 Test Item Value Reference Range Interpretation Comments SODIUM (BEAKER) 137 meq/L 136-145 (test code = 381) POTASSIUM (BEAKER) 4.7 meq/L 3.5-5.1 (test code = 379) CHLORIDE (BEAKER) 100 meq/L 98-107 (test code = 382) CO2 (BEAKER) (test 27 meq/L 22-29 code = 355) BLOOD UREA NITROGEN 35 mg/dL 7-21 H (BEAKER) (test code = 354) CREATININE (BEAKER) 4.73 mg/dL 0.57-1.25 H (test code = 358) GLUCOSE RANDOM 106 mg/dL 70-105 H (BEAKER) (test code = 652) CALCIUM (BEAKER) 12.4 mg/dL 8.4-10.2 H (test code = 697) EGFR (BEAKER) (test 12 mL/min/1.73 ESTIMA DUANE GFR IS code = 1092) sq m NOT ACCURATE CREATININE CLEARANCE IN PREDICTING GLOMERULAR FILTRATION RATE . ESTIMATED GFR I S NOT APPLICABLE FOR DIALYSIS PATIEN TS. Credit Or Loans Officer ID - EVELIA TOtdyvpdfut9631-88-68 07:29:00 Test Item Value Reference Range Interpretation Comments Phosphorus (test code = 4.3 mg/dL 2.3-4.7 2777-1) SID (test code = SID) Credit Or Loans Officer ID - EVELIA F Lab Interpretation (test Normal code = 47106-4) [facility]2020-12-24 07:29:00 Test Item Value Reference Range Interpretation Comments MAGNESIUM (BEAKER) (test code = 2.4 mg/dL 1.6-2.6 627) Credit Or Loans Officer ID - EVELIA [id number] 07:29:00 Test Item Value Reference Range Interpretation Comments PHOSPHORUS (BEAKER) (test code = 4.3 mg/dL 2.3-4.7 604) Credit Or Loans Officer ID - EVELIA [id number] 07:21:00 Test Item Value Reference Range Interpretation Comments PTT (test code = 57.8 22.5- 36.0 seconds H 86648-1) SID (test code = SID) While on warfarin. Lab Interpretation (test Abnormal code = 56706-0) [facility]APTT2020-12-[facility] 07:21:00 Test Item Value Reference Range Interpretation Comments PARTIAL THROMBOPLASTIN TIME 57.8 seconds 22.5-36.0 H (BEAKER) (test code = 760) While on warfarin.PROTHROMBIN TIME/[id number] 07:19:00 Test Item Value Reference Range Interpretation Comments PROTIME (BEAKER) (test code = 20.8 seconds 11.9-14.2 H 759) INR (BEAKER) (test code = 370) 1.84 <=5.90 Effective 03/11/2019: PT Reference Range ChangeNew: 11.9-14.2 Previous: 11.7- 14.7RECOMMENDED COUMADIN/WARFARIN INR THERAPY RANGESSTANDARD DOSE: 2.0-3.0 Includes: PROPHYLAXIS for venous thrombosis, systemic embolization; TREATMENT for venous thrombosis and/or pulmonary embolus.HIGH RISK: Target INR is2.5-3.5 for patients wiht mechanical heart valves.While on warfarin.CBC (HEMOGRAM ONLY) 2020-10-06 07:09:00 Test Item Value Reference Range Interpretation Comments WHITE BLOOD CELL COUNT (BEAKER) 12.9 K/ L 3.5-10.5 H (test code = 775) RED BLOOD CELL COUNT (BEAKER) 3.27 M/ L 4.63-6.08 L (test code = 761) HEMOGLOBIN (BEAKER) (test code = 10.1 GM/DL 13.7-17.5 L 410) HEMATOCRIT (BEAKER) (test code = 32.2 % 40.1-51.0 L 411) MEAN CORPUSCULAR VOLUME (BEAKER) 98.5 fL 79.0-92.2 H (test code = 753) MEAN CORPUSCULAR HEMOGLOBIN 30.9 pg 25.7-32.2 (BEAKER) (test code = 751) MEAN CORPUSCULAR HEMOGLOBIN CONC 31.4 GM/DL 32.3-36.5 L (BEAKER) (test code = 752) RED CELL DISTRIBUTION WIDTH 16.7 % 11.6-14.4 H (BEAKER) (test code = 412) PLATELET COUNT (BEAKER) (test 210 K/CU MM 150-450 code = 756) MEAN PLATELET VOLUME (BEAKER) 11.0 fL 9.4-12.4 (test code = 754) NUCLEATED RED BLOOD CELLS 0 /100 WBC 0-0 (BEAKER) (test code = 413) [id number] 00:48:00 Test Item Value Reference Range Interpretation Comments PARTIAL THROMBOPLASTIN TIME 88.7 seconds 22.5-36.0 H (BEAKER) (test code = 760) POCT-GLUCOSE [id number] 17:50:00 Test Item Value Reference Range Interpretation Comments POC-GLUCOSE METER 138 mg/dL 70-110 H : TESTED A T [facility] [address] (BEAKER) (test code = [place], 1538) [address]: Credit Or Loans Officer/Techni sandi ID = [id number] for JAIME NYE [id number] 06:15:00 Test Item Value Reference Range Interpretation Comments Ferritin (test code = 1986.09 ng/mL 5-275 H 2276-4) SID (test code = SID) Credit Or Loans Officer ID - YULIANA M Lab Interpretation (test Abnormal code = 35653-0) [facility]FERRITIN2020-12-23 06:15:00 Test Item Value Reference Range Interpretation Comments FERRITIN (BEAKER) (test code = 1986.09 ng/mL 5.00-275.00 H 361) Credit Or Loans Officer ID Bettie BRIDGES MBASIC METABOLIC [id number] 06:13:00 Test Item Value Reference Range Interpretation Comments SODIUM (BEAKER) 136 meq/L 136-145 (test code = 381) POTASSIUM (BEAKER) 4.5 meq/L 3.5-5.1 (test code = 379) CHLORIDE (BEAKER) 101 meq/L 98-107 (test code = 382) CO2 (BEAKER) (test 25 meq/L 22-29 code = 355) BLOOD UREA NITROGEN 40 mg/dL 7-21 H (BEAKER) (test code = 354) CREATININE (BEAKER) 5.32 mg/dL 0.57-1.25 H (test code = 358) GLUCOSE RANDOM 149 mg/dL 70-105 H (BEAKER) (test code = 652) CALCIUM (BEAKER) 13.6 mg/dL 8.4-10.2 HH (test code = 697) EGFR (BEAKER) (test 11 mL/min/1.73 ESTIMA DUANE GFR IS code = 1092) sq m NOT ACCURATE CREATININE CLEARANCE IN PREDICTING GLOMERULAR FILTRATION RATE . ESTIMATED GFR I S NOT APPLICABLE FOR DIALYSIS PATIEN TS. Credit Or Loans Officer ID - YULIANA [id number] 05:52:00 Test Item Value Reference Range Interpretation Comments MAGNESIUM (BEAKER) (test code = 2.4 mg/dL 1.6-2.6 627) Credit Or Loans Officer ID - YULIANA [id number] 05:52:00 Test Item Value Reference Range Interpretation Comments PHOSPHORUS (BEAKER) (test code = 6.4 mg/dL 2.3-4.7 H 604) Credit Or Loans Officer ID - YULIANA Artis, TIBC, % sat. (without ferritin)2020-10-05 05:38:00 Test Item Value Reference Range Interpretation Comments Iron (test code = 2498-4) 36.0 ug/dL 40-160 L TIBC (test code = 2500-7) 143 ug/dL 250-450 L Iron % Saturation (test 25 % 20-55 code = 2502-3) SID (test code = SID) Credit Or Loans Officer DOROTA Haro Lab Interpretation (test Abnormal code = 44617-3) [facility] HospitalIRON, TIBC, % SAT. (WITHOUT FERRITIN)2020-10-05 05:38:00 Test Item Value Reference Range Interpretation Comments IRON (BEAKER) (test code = 547) 36.0 ug/dL 40.0-160.0 L TOTAL IRON BINDING CAPACITY 143 ug/dL 250-450 L (BEAKER) (test code = 769) IRON % SATURATION (2) (BEAKER) 25 % 20-55 (test code = 2590) Credit Or Loans Officer ID - YULIANA [facility], [id number] 05:37:00 Test Item Value Reference Range Interpretation Comments PTH (test code = 2731-8) 376.4 pg/mL 8.5-72.5 H SID (test code = SID) Credit Or Loans Officer DOROTA BRIDGES M Lab Interpretation (test Abnormal code = 94275-8) [facility]PT, [id number] 05:37:00 Test Item Value Reference Range Interpretation Comments PARATHYROID HORMONE INTACT 376.4 pg/mL 8.5-72.5 H (BEAKER) (test code = 577) Credit [employer] Loans Officer DOROTA BRIDGES [id number] 05:16:00 Test Item Value Reference Range Interpretation Comments PARTIAL THROMBOPLASTIN TIME 48.8 seconds 22.5-36.0 H (BEAKER) (test code = 760) While on warfarin.PROTHROMBIN TIME/[id number] 05:15:00 Test Item Value Reference Range Interpretation Comments PROTIME (BEAKER) (test code = 19.1 seconds 11.9-14.2 H 759) INR (BEAKER) (test code = 370) 1.66 <=5.90 Effective 03/11/2019: PT Reference Range ChangeNew: 11.9-14.2 Previous: 11.7- 14.7RECOMMENDED COUMADIN/WARFARIN INR THERAPY RANGESSTANDARD DOSE: 2.0-3.0 Includes: PROPHYLAXIS for venous thrombosis, systemic embolization; TREATMENT for venous thrombosis and/or pulmonary embolus.HIGH RISK: Target INR is2.5-3.5 for patients wiht mechanical heart valves.While on warfarin.CBC (HEMOGRAM ONLY) 2020-10-05 05:07:00 Test Item Value Reference Range Interpretation Comments WHITE BLOOD CELL COUNT (BEAKER) 10.9 K/ L 3.5-10.5 H (test code = 775) RED BLOOD CELL COUNT (BEAKER) 2.99 M/ L 4.63-6.08 L (test code = 761) HEMOGLOBIN (BEAKER) (test code = 9.1 GM/DL 13.7-17.5 L 410) HEMATOCRIT (BEAKER) (test code = 29.1 % 40.1-51.0 L 411) MEAN CORPUSCULAR VOLUME (BEAKER) 97.3 fL 79.0-92.2 H (test code = 753) MEAN CORPUSCULAR HEMOGLOBIN 30.4 pg 25.7-32.2 (BEAKER) (test code = 751) MEAN CORPUSCULAR HEMOGLOBIN CONC 31.3 GM/DL 32.3-36.5 L (BEAKER) (test code = 752) RED CELL DISTRIBUTION WIDTH 16.3 % 11.6-14.4 H (BEAKER) (test code = 412) PLATELET COUNT (BEAKER) (test 164 K/CU MM 150-450 code = 756) MEAN PLATELET VOLUME (BEAKER) 11.1 fL 9.4-12.4 (test code = 754) NUCLEATED RED BLOOD CELLS 0 /100 WBC 0-0 (BEAKER) (test code = 413) Oxygen saturation, [id number] 04:47:00 Test Item Value Reference Range Interpretation Comments O2 Saturation (Measured) (test code = 68.9 % 14402-3) [facility] HospitalOXYGEN SATURATION, [id number] 04:47:00 Test Item Value Reference Range Interpretation Comments O2 SATURATION (MEASURED) (BEAKER) 68.9 % (test code = 1455) [id number] 21:22:00 Test Item Value Reference Range Interpretation Comments PARTIAL THROMBOPLASTIN TIME 78.7 seconds 22.5-36.0 H (BEAKER) (test code = 760) OXYGEN SATURATION, [id number] 20:57:00 Test Item Value Reference Range Interpretation Comments O2 SATURATION (MEASURED) (BEAKER) 72.6 % (test code = 1455) POCT-GLUCOSE [id number] 18:28:00 Test Item Value Reference Range Interpretation Comments POC-GLUCOSE METER 149 mg/dL 70-110 H : TESTED A T [facility] 67[address] (BEAKER) (test code = [facility], 1538) [address]: Credit Or Loans Officer/Techni sandi ID = [id number] for JAIME NYE [id number] 13:22:00 Test Item Value Reference Range Interpretation Comments PARTIAL THROMBOPLASTIN TIME 91.8 seconds 22.5-36.0 H (BEAKER) (test code = 760) OXYGEN SATURATION, [id number] 12:48:00 Test Item Value Reference Range Interpretation Comments O2 SATURATION (MEASURED) (BEAKER) 85.8 % (test code = 1455) POCT-GLUCOSE [id number] 12:36:00 Test Item Value Reference Range Interpretation Comments POC-GLUCOSE METER 143 mg/dL 70-110 H : TESTED A T [facility] 6720 (BEAKER) (test code = [facility], 1538) [address]: Credit Or Loans Officer/Techni sandi ID = [id number] for JAIME NYE OXYGEN SATURATION, [id number] 05:46:00 Test Item Value Reference Range Interpretation Comments O2 SATURATION (MEASURED) (BEAKER) 80.5 % (test code = 1455) BASIC METABOLIC [id number] 04:53:00 Test Item Value Reference Range Interpretation Comments SODIUM (BEAKER) 138 meq/L 136-145 (test code = 381) POTASSIUM (BEAKER) 4.3 meq/L 3.5-5.1 (test code = 379) CHLORIDE (BEAKER) 103 meq/L 98-107 (test code = 382) CO2 (BEAKER) (test 27 meq/L 22-29 code = 355) BLOOD UREA NITROGEN 22 mg/dL 7-21 H (BEAKER) (test code = 354) CREATININE (BEAKER) 3.26 mg/dL 0.57-1.25 H (test code = 358) GLUCOSE RANDOM 120 mg/dL 70-105 H (BEAKER) (test code = 652) CALCIUM (BEAKER) 11.3 mg/dL 8.4-10.2 H (test code = 697) EGFR (BEAKER) (test 19 mL/min/1.73 ESTIMA DUANE GFR IS code = 1092) sq m NOT ACCURATE CREATININE CLEARANCE IN PREDICTING GLOMERULAR FILTRATION RATE . ESTIMATED GFR I S NOT APPLICABLE FOR DIALYSIS PATIEN TS. Credit Or Loans Officer ID - SUGAR [id number] 04:51:00 Test Item Value Reference Range Interpretation Comments MAGNESIUM (BEAKER) (test code = 2.2 mg/dL 1.6-2.6 627) Credit Or Loans Officer ID - SUGAR [id number] 04:51:00 Test Item Value Reference Range Interpretation Comments PHOSPHORUS (BEAKER) (test code = 3.8 mg/dL 2.3-4.7 604) [employer] Officer ID - SUGAR [id number] 04:19:00 Test Item Value Reference Range Interpretation Comments PARTIAL THROMBOPLASTIN TIME 103.1 seconds 22.5-36.0 H (BEAKER) (test code = 760) While on warfarin.PROTHROMBIN [id number] 04:06:00 Test Item Value Reference Range Interpretation Comments PROTIME (BEAKER) (test code = 20.0 seconds 11.9-14.2 H 759) INR (BEAKER) (test code = 370) 1.75 <=5.90 Effective 03/11/2019: PT Reference Range ChangeNew: 11.9-14.2 Previous: 11.7- 14.7RECOMMENDED COUMADIN/WARFARIN INR THERAPY RANGESSTANDARD DOSE: 2.0-3.0 Includes: PROPHYLAXIS for venous thrombosis, systemic embolization; TREATMENT for venous thrombosis and/or pulmonary embolus.HIGH RISK: Target INR is2.5-3.5 for patients wiht mechanical heart valves.While on warfarin.CBC (HEMOGRAM ONLY) 2020-10-04 03:55:00 Test Item Value Reference Range Interpretation Comments WHITE BLOOD CELL COUNT (BEAKER) 8.0 K/ L 3.5-10.5 (test code = 775) RED BLOOD CELL COUNT (BEAKER) 2.97 M/ L 4.63-6.08 L (test code = 761) HEMOGLOBIN (BEAKER) (test code = 8.9 GM/DL 13.7-17.5 L 410) HEMATOCRIT (BEAKER) (test code = 28.4 % 40.1-51.0 L 411) MEAN CORPUSCULAR VOLUME (BEAKER) 95.6 fL 79.0-92.2 H (test code = 753) MEAN CORPUSCULAR HEMOGLOBIN 30.0 pg 25.7-32.2 (BEAKER) (test code = 751) MEAN CORPUSCULAR HEMOGLOBIN CONC 31.3 GM/DL 32.3-36.5 L (BEAKER) (test code = 752) RED CELL DISTRIBUTION WIDTH 16.2 % 11.6-14.4 H (BEAKER) (test code = 412) PLATELET COUNT (BEAKER) (test 122 K/CU MM 150-450 L code = 756) MEAN PLATELET VOLUME (BEAKER) 10.6 fL 9.4-12.4 (test code = 754) NUCLEATED RED BLOOD CELLS 0 /100 WBC 0-0 (BEAKER) (test code = 413) OXYGEN SATURATION, [id number] 03:44:00 Test Item Value Reference Range Interpretation Comments O2 SATURATION (MEASURED) (BEAKER) 97.5 % (test code = 1455) HEMODIALYSIS [id number] 00:10:00Mali Mehta RN 10/04/2020 12:46 AMProcedure tolerated well. Vital signs stable.HD duration 2.5 hours UF 2.3 L via [...] BP: Pulse: 110 Resp: 15 Temp: SpO2: 97%[facility] [facility]:38[facility]00 Test Item Value Reference Range Interpretation Comments PARTIAL THROMBOPLASTIN TIME 75.2 seconds 22.5-36.0 H (BEAKER) (test code = 760) POCT-GLUCOSE [id number] 17:48:00 Test Item Value Reference Range Interpretation Comments POC-GLUCOSE METER 106 mg/dL 70-110 : TESTED A T [facility] 6720 (BEAKER) (test code = [place], 1538) [address]: Credit Or Loans Officer/Techni sandi ID = [id number] for Hollie RAMIREZ 2D Echo W/Doppler(CW/PW/Color)2020-10-03 15:39:52Ejection FractionSLEH ECHO HEARTLAB MKCKESSON CPACSInterface, External Ris In - 10/03/2020 3:40 PM C STTransthoracic Echocardiography Report (TTE) Demographics Patient Name KODI MORAN Date of Study 10/03/2020 PARISH Gender Male Visit Number [id number] Race Unknown Room Number 8A04 Number Date of 1945 Referring Physician Age 75 year(s) [employer] Interpreting Ceasar Prado, Physician MD Fellow Ceasar Christensen MD Procedure Type of Study TTE procedure:2DECHO W DOPPLER(CW/PW/COLOR) (STAT) Indications:Hypotension or hemodynamic instability.Clinical HistoryHGB 8.7HCT 27.4 %ASCADDMESRDHLDHTNRENAL FAILUREAVRBYPASS AORTO CORONARY LUCAS/SVG 09/27/20Contrast Medium: Definity. Amount - 2 mlHeight: 73 inches Weight: 101.6 kg (224 lbs) BSA: 2.26 m^2 BMI: 29.55 kg/m^2HR: 102 bpm BP: 122/46 mmHg Summary Lower [...] (AT = 65 ms). Estimated peak systolic PApressure is 45-50 mmHg. Compared to previous study, [...] heart disease. Left Atrium LA size is mildly [...] mmHg at HR 89 bpm. Mild mitral regurgitation.Tricuspid Valve Mild tricuspid regurgitation. Estimated peak systolic PA pressure is 45-50 mmHg. Pulmonic Valve Normal PV structure appears normal by available views. Pericardium No significant pericardial effusion is visualized. IVC/SVC/PA/PV/Pleural The estimated RA pressure by IVC dynamics 5- 10 mmHg. L pleural effusion is suggested. Chambers/Structures Left Atrium LA Volume: 84.81 ml LA Area: 25.55 cm^2 LA Vol. Index: 38 ml/m^2 Left Ventricle LVIDd: 5.71 cm LVEDV:160.77 ml LV Septum Diastolic: 1 cm LV PW Diastolic: 0.96 cm LVEDV Samano's:175.57 ml LVESV Samano's:95.21 ml LVEF Samano's: 52.6 % LVEDVI: 78 ml/m^2 LVESVI: 42 ml/m^2 LVOT Diameter: 2.18 cm Right Ventricle RVOTVTI: 20.07 cm Doppler/Quantitative Measurements Mitral Valve MV [...] Mean Velocity: 2.02 m/s Mean Gradient: 16.38 mmHgSanta Marta HospitalAPTT2020-12-21 13:48:00 Test Item Value Reference Range Interpretation Comments PARTIAL THROMBOPLASTIN TIME 88.6 seconds 22.5-36.0 H (BEAKER) (test code = 760) Prior to initiating heparinPlatelet [id number] 13:16:00 Test Item Value Reference Range Interpretation Comments Platelets (test code = 118 150- 450 K/CU MM L 777-3) SID (test code = SID) Credit Or Loans Officer ID - [id number] Lab Interpretation (test Abnormal code = 87351-8) [facility] HospitalPLATELET [id number] 13:16:00 Test Item Value Reference Range Interpretation Comments PLATELET COUNT (BEAKER) (test 118 K/CU MM 150-450 L code = 756) Credit Or Loans Officer ID - [id number] SATURATION, [id number] 12:21:00 Test Item Value Reference Range Interpretation Comments O2 SATURATION (MEASURED) (TAY) 90.6 % (test code = 1455) POCT-GLUCOSE [id number] 11:26:00 Test Item Value Reference Range Interpretation Comments POC-GLUCOSE METER 87 mg/dL 70-110 : TESTED A T [facility] 6720 (TAY) (test code = [place], 1538) [address]: Credit Or Loans Officer/Techni sandi ID = [id number] for [place] ([place]), Luzinda RAD, CHEST, 1 VIEW, NON [id number] 09:33:00Reason for exam:->volumeShould this be performed at the bedside?->Yes [facility] : 1945 Sex: MFINAL REPORT RAD, CHEST, 1 VIEW, NON DEPT INDICATION: volume COMPAR MICHAEL: Prior day's exam FINDINGS: Portable frontal view of the chest. IMPRESSION: Support Lines: Right IJ pulmonary arterial pressure catheter has been removed. The sheath remains in place. Lungs andpleura: No significant change in the interstitial edema. Small left effusion. No pneumothorax.Heart and mediastinum: Stable contours. Stable surgical changes.Additional findings: None. Signed: JR Purcell Robert MDReport Verified Date/Time: 10/03/2020 09:33:43 Reading Location: [facility] Radiology Reading Room XR chest 1 view portable / [id number] 09:33:00Interface, External Ris In - 10/03/2020 9:35 AM CSTFINAL REPORT RAD, CHEST, 1 VIEW, NON DEPT INDICATION: volume COMPARISON: Prior day's exam FINDINGS: Portable frontal view of the chest. IMPRESSION: Support Lines: Right IJ pulmonary arterial pressure catheter has been removed. The sheath remains in place. Lungs and pleura: No significant change in the interstitial edema. Small left effusion. No pneumothorax.Heart and mediastinum: Stable contours. Stable surgical changes.Additional findings: None. Signed: JR Purcell Robert MDReport Verified Date/Time: 10/03/2020 09:33:43 Reading Location: [facility] Radiology [facility] 05[facility]00 Test Item Value Reference Range Interpretation Comments MAGNESIUM (BEAKER) (test code = 2.2 mg/dL 1.6-2.6 627) Credit Or Loans Officer ID - YULIANA [id number] 05:49:00 Test Item Value Reference Range Interpretation Comments PHOSPHORUS (BEAKER) (test code = 3.5 mg/dL 2.3-4.7 604) Credit Or Loans Officer ID - YULIANA MBASIC METABOLIC [id number] 05:49:00 Test Item Value Reference Range Interpretation Comments SODIUM (BEAKER) 135 meq/L 136-145 L (test code = 381) POTASSIUM (BEAKER) 4.4 meq/L 3.5-5.1 (test code = 379) CHLORIDE (BEAKER) 101 meq/L 98-107 (test code = 382) CO2 (BEAKER) (test 23 meq/L 22-29 code = 355) BLOOD UREA NITROGEN 28 mg/dL 7-21 H (BEAKER) (test code = 354) CREATININE (BEAKER) 3.28 mg/dL 0.57-1.25 H (test code = 358) GLUCOSE RANDOM 107 mg/dL 70-105 H (BEAKER) (test code = 652) CALCIUM (BEAKER) 10.8 mg/dL 8.4-10.2 H (test code = 697) EGFR (BEAKER) (test 18 mL/min/1.73 ESTIMA DUANE GFR IS code = 1092) sq m NOT ACCURATE CREATININE CLEARANCE IN PREDICTING GLOMERULAR FILTRATION RATE . ESTIMATED GFR I S NOT APPLICABLE FOR DIALYSIS PATIEN TS. Credit [employer] Loans Officer ID - YULIANA MC (HEMOGRAM ONLY)2020-10-03 05:26:00 Test Item Value Reference Range Interpretation Comments WHITE BLOOD CELL COUNT (BEAKER) 8.2 K/ L 3.5-10.5 (test code = 775) RED BLOOD CELL COUNT (BEAKER) 2.88 M/ L 4.63-6.08 L (test code = 761) HEMOGLOBIN (BEAKER) (test code = 8.7 GM/DL 13.7-17.5 L 410) HEMATOCRIT (BEAKER) (test code = 27.4 % 40.1-51.0 L 411) MEAN CORPUSCULAR VOLUME (BEAKER) 95.1 fL 79.0-92.2 H (test code = 753) MEAN CORPUSCULAR HEMOGLOBIN 30.2 pg 25.7-32.2 (BEAKER) (test code = 751) MEAN CORPUSCULAR HEMOGLOBIN CONC 31.8 GM/DL 32.3-36.5 L (BEAKER) (test code = 752) RED CELL DISTRIBUTION WIDTH 16.1 % 11.6-14.4 H (BEAKER) (test code = 412) PLATELET COUNT (BEAKER) (test 110 K/CU MM 150-450 L code = 756) MEAN PLATELET VOLUME (BEAKER) 11.2 fL 9.4-12.4 (test code = 754) NUCLEATED RED BLOOD CELLS 0 /100 WBC 0-0 (BEAKER) (test code = 413) POCT-GLUCOSE [id number] 17:16:00 Test Item Value Reference Range Interpretation Comments POC-GLUCOSE METER 91 mg/dL 70-110 : TESTED A T [facility] 6720 (BEAKER) (test code = [place], 1538) [address]: Credit Or Loans Officer/Techni sandi ID = [id number] for CHRISTY ONJAIME ECG 12 [id number] 12:15:31Interface, External Ris In 10/02/2020 12:15 PM CSTVentricular Rate 105 BPMAtrial Rate 105 BPMQRS Duration 94 msQ-T Interval 348 msQTC Calculation(Bazett) 459 msR [place] -39 degreesT [place] 93 degreesSinus rhythm with frequent PACsLeft axis deviationIncomplete right bundle branch blockMinimal voltage criteria for LVH, may be normal variantT wave inversion lateral leadsAbnormal ECGWhen compared with ECG of 26-SEP-2020 20:49,PACs now seenST no longer depressed in Inferior leadsST no longer elevated in aVRT wave inversion no longer evident in Inferior leadsT wave inversion less evident in Lateral leadsQThas shortenedConfirmed by MD SAMUEL, RENETTA ([id number]) on 10/02/2020 12:15:30 [facility] [id number] 12:06:00 Test Item Value Reference Range Interpretation Comments POC-GLUCOSE METER 129 mg/dL 70-110 H : TESTED A T [facility] 6720 (BEAKER) (test code = ZEFRMT [employer] [facility], 1538) [address]: Credit Or Loans Officer/Techni sandi ID = [id number] for JAIME NYE POCT-GLUCOSE [id number] 08:23:00 Test Item Value Reference Range Interpretation Comments POC-GLUCOSE METER 123 mg/dL 70-110 H : TESTED A T [facility] 6720 (Cleartrip) (test code = [employer] [facility], 1538) [address]: Credit Or Loans Officer/Techni sandi ID = [id number] for JAIME NYE [id number] 06:38:00 Test Item Value Reference Range Interpretation Comments Protime (test code = 21.7 11.9- 14.2 H 5902-2) seconds INR (test code = 1.95 <=5.90 6301-6) PTT (test code = 86.4 22.5- 36.0 H 14065-7) seconds SID (test code = SID) Effective 03/11/2019: PT Reference Range ChangeNew: 11.9-14.2 Previous: 11.7-14.7 RECOMMENDED COUMADIN/WARFARIN INR THERAPY RANGESSTANDARD DOSE: 2.0-3.0 Includes: PROPHYLAXIS for venous thrombosis, systemic embolization; TREATMENT for venous thrombosis and/or pulmonary embolus.HIGH RISK: Target INR is 2.5-3.5 for patients wiht mechanical heart valves. Lab Interpretation Abnormal (test code = 24203-8) [facility] HospitalPT/[id number] 06:38:00 Test Item Value Reference Range Interpretation Comments PROTIME (BEAKER) (test code = 21.7 seconds 11.9-14.2 H 759) INR (BEAKER) (test code = 370) 1.95 <=5.90 PARTIAL THROMBOPLASTIN TIME 86.4 seconds 22.5-36.0 H (BEAKER) (test code = 760) Effective 03/11/2019: PT Reference Range ChangeNew: 11.9-14.2 Previous: 11.7- 14.7RECOMMENDED COUMADIN/WARFARIN INR THERAPY RANGESSTANDARD DOSE: 2.0-3.0 Includes: PROPHYLAXIS for venous thrombosis, systemic embolization; TREATMENT for venous thrombosis and/or pulmonary embolus.HIGH RISK: Target INR is2.5-3.5 for patients wiht mechanical heart valves.BASIC METABOLIC [id number] 06:34:00 Test Item Value Reference Range Interpretation Comments SODIUM (BEAKER) 136 meq/L 136-145 (test code = 381) POTASSIUM (BEAKER) 4.3 meq/L 3.5-5.1 (test code = 379) CHLORIDE (BEAKER) 102 meq/L 98-107 (test code = 382) CO2 (BEAKER) (test 27 meq/L 22-29 code = 355) BLOOD UREA NITROGEN 29 mg/dL 7-21 H (BEAKER) (test code = 354) CREATININE (BEAKER) 3.01 mg/dL 0.57-1.25 H (test code = 358) GLUCOSE RANDOM 122 mg/dL 70-105 H (BEAKER) (test code = 652) CALCIUM (BEAKER) 10.3 mg/dL 8.4-10.2 H (test code = 697) EGFR (BEAKER) (test 20 mL/min/1.73 ESTIMA DUANE GFR IS code = 1092) sq m NOT ACCURATE CREATININE CLEARANCE IN PREDICTING GLOMERULAR FILTRATION RATE . ESTIMATED GFR I S NOT APPLICABLE FOR DIALYSIS PATIEN TS. Credit [employer] Loans Officer ID - ADRIANNE [id number] 06:33:00 Test Item Value Reference Range Interpretation Comments MAGNESIUM (BEAKER) (test code = 2.1 mg/dL 1.6-2.6 627) Credit Or Loans Officer ID - ADRIANNE [id number] 06:33:00 Test Item Value Reference Range Interpretation Comments PHOSPHORUS (BEAKER) (test code = 3.6 mg/dL 2.3-4.7 604) [employer] Lo[employer] Officer ID Bettie SILVER LpH, [id number] 06:26:00 Test Item Value Reference Range Interpretation Comments pH, Arterial (test code = 2744-1) 7.36 7.35-7.45 Lab Interpretation (test code = Normal 34752-9) [facility] HospitalPH, [id number] 06:26:00 Test Item Value Reference Range Interpretation Comments PH ARTERIAL (BEAKER) (test code = 383) 7.36 7.35-7.45 Calcium, [id number] 06:25:00 Test Item Value Reference Range Interpretation Comments Calcium, Ion (test code = 1994-3) 1.40 mmol/L 1.12-1.27 H pH, Blood (test code = 31284-5) 7.36 Lab Interpretation (test code = Abnormal 62118-4) [facility] HospitalCALCIUM, [id number] 06:25:00 Test Item Value Reference Range Interpretation Comments CALCIUM IONIZED (BEAKER) (test 1.40 mmol/L 1.12-1.27 H code = 698) PH, BLOOD (BEAKER) (test code = 7.36 1810) CBC (HEMOGRAM ONLY)2020-10-02 06:03:00 Test Item Value Reference Range Interpretation Comments WHITE BLOOD CELL COUNT (BEAKER) 9.7 K/ L 3.5-10.5 (test code = 775) RED BLOOD CELL COUNT (BEAKER) 2.70 M/ L 4.63-6.08 L (test code = 761) HEMOGLOBIN (BEAKER) (test code = 8.2 GM/DL 13.7-17.5 L 410) HEMATOCRIT (BEAKER) (test code = 25.6 % 40.1-51.0 L 411) MEAN CORPUSCULAR VOLUME (BEAKER) 94.8 fL 79.0-92.2 H (test code = 753) MEAN CORPUSCULAR HEMOGLOBIN 30.4 pg 25.7-32.2 (BEAKER) (test code = 751) MEAN CORPUSCULAR HEMOGLOBIN CONC 32.0 GM/DL 32.3-36.5 L (BEAKER) (test code = 752) RED CELL DISTRIBUTION WIDTH 16.1 % 11.6-14.4 H (BEAKER) (test code = 412) PLATELET COUNT (BEAKER) (test 100 K/CU MM 150-450 L code = 756) MEAN PLATELET VOLUME (BEAKER) 11.6 fL 9.4-12.4 (test code = 754) NUCLEATED RED BLOOD CELLS 0 /100 WBC 0-0 (BEAKER) (test code = 413) BASIC METABOLIC [id number] 01:35:00 Test Item Value Reference Range Interpretation Comments SODIUM (BEAKER) 135 meq/L 136-145 L (test code = 381) POTASSIUM (BEAKER) 4.5 meq/L 3.5-5.1 (test code = 379) CHLORIDE (BEAKER) 102 meq/L 98-107 (test code = 382) CO2 (BEAKER) (test 23 meq/L 22-29 code = 355) BLOOD UREA NITROGEN 32 mg/dL 7-21 H (BEAKER) (test code = 354) CREATININE (BEAKER) 3.36 mg/dL 0.57-1.25 H (test code = 358) GLUCOSE RANDOM 108 mg/dL 70-105 H (BEAKER) (test code = 652) CALCIUM (BEAKER) 10.4 mg/dL 8.4-10.2 H (test code = 697) EGFR (BEAKER) (test 18 mL/min/1.73 ESTIMA DUANE GFR IS code = 1092) sq m NOT ACCURATE CREATININE CLEARANCE IN PREDICTING GLOMERULAR FILTRATION RATE . ESTIMATED GFR I S NOT APPLICABLE FOR DIALYSIS PATIEN TS. Credit [employer] Lo[employer] Officer ID - PIAYA LRAD, CHEST, 1 VIEW, NON [id number] 01:33:00Reason for exam:->s/p MVR, AKIShould this be performed at the bedside?->Yes [facility] : 1945 Sex: MFINAL REPORT CLINICAL INDICATION: Postop Comparison: 10/01/2020 The patient is rotated to the left. The cardiomediastinal contours are grossly stable. Central pulmonary vascular congestion and bilateral parenchymal and pleural opacities are unchanged. There is no pneumothorax. Support lines are stable. Signed: Kevin Mott MDReport Verified Date/Time: 10/02/2020 01:33:01 IUM, [id number] 01:16:00 Test Item Value Reference Range Interpretation Comments CALCIUM IONIZED (BEAKER) (test 1.38 mmol/L 1.12-1.27 H code = 698) PH, BLOOD (BEAKER) (test code = 7.39 1810) BASIC METABOLIC [id number] 18:51:00 Test Item Value Reference Range Interpretation Comments SODIUM (BEAKER) 136 meq/L 136-145 (test code = 381) POTASSIUM (BEAKER) 4.5 meq/L 3.5-5.1 (test code = 379) CHLORIDE (BEAKER) 102 meq/L 98-107 (test code = 382) CO2 (BEAKER) (test 26 meq/L 22-29 code = 355) BLOOD UREA NITROGEN 38 mg/dL 7-21 H (BEAKER) (test code = 354) CREATININE (BEAKER) 3.87 mg/dL 0.57-1.25 H (test code = 358) GLUCOSE RANDOM 122 mg/dL 70-105 H (BEAKER) (test code = 652) CALCIUM (BEAKER) 10.5 mg/dL 8.4-10.2 H (test code = 697) EGFR (BEAKER) (test 15 mL/min/1.73 ESTIMA DUANE GFR IS code = 1092) sq m NOT ACCURATE CREATININE CLEARANCE IN PREDICTING GLOMERULAR FILTRATION RATE . ESTIMATED GFR I S NOT APPLICABLE FOR DIALYSIS PATIEN TS. [employer] Lo[employer] Officer ID - MARC [id number] 18:50:00 Test Item Value Reference Range Interpretation Comments MAGNESIUM (BEAKER) (test code = 2.4 mg/dL 1.6-2.6 627) [employer] Lo[employer] Officer ID - MARC [id number] 18:50:00 Test Item Value Reference Range Interpretation Comments PHOSPHORUS (BEAKER) (test code = 4.7 mg/dL 2.3-4.7 604) [employer] Lo[employer] Officer ID - MARC CPH, [id number] 18:15:00 Test Item Value Reference Range Interpretation Comments PH ARTERIAL (BEAKER) (test code = 383) 7.40 7.35-7.45 CALCIUM, [id number] 18:15:00 Test Item Value Reference Range Interpretation Comments CALCIUM IONIZED (BEAKER) (test 1.38 mmol/L 1.12-1.27 H code = 698) PH, BLOOD (BEAKER) (test code = 7.40 1810) Thromboelastograph (TEG)2020-10-01 13:43:00 Test Item Value Reference Range Interpretation Comments TEG Activated Clotting Time (test 5.2 4.0- 7.0 minutes code = 50834-6) TEG Fibrinogen Activity (test 76.2 61.0- 73.0 degrees H code = 26633-5) TEG Platelet Aggregation (test 73.0 55.0- 65.0 MM H code = 02374-5) TEG Fibrinolysis (test code = 0.0 % 0-5 98721-7) TEG-H Activated Clotting Time 5.5 4.0- 7.0 minutes (test code = 1411) TEG-H Fibrinogen Activity (test 74.0 61.0- 73.0 degrees H code = 1412) TEG-H Platelet Aggregation (test 70.6 55.0- 65.0 MM H code = 1413) TEG-H Fibrinolysis (test code = 1.7 % 0-5 1414) Lab Interpretation (test code = Abnormal 23583-0) [facility] HospitalTHROMBOELASTOGRAPH (TEG)2020-10-01 13:43:00 Test Item Value Reference Range Interpretation Comments TEG ACTIVATED CLOTTING TIME 5.2 minutes 4.0-7.0 (BEAKER) (test code = 1407) TEG FIBRINOGEN ACTIVITY (BEAKER) 76.2 degrees 61.0-73.0 H (test code = 1408) TEG PLT. AGGREGATION (BEAKER) 73.0 MM 55.0-65.0 H (test code = 1409) TEG FIBRINOLYSIS (BEAKER) (test 0.0 % 0.0-5.0 code = 1410) TGH ACTIVATED CLOTTING TIME 5.5 minutes 4.0-7.0 (BEAKER) (test code = 1411) TGH FIBRINOGEN ACTIVITY (BEAKER) 74.0 degrees 61.0-73.0 H (test code = 1412) TGH PLT. AGGREGATION (BEAKER) 70.6 MM 55.0-65.0 H (test code = 1413) TGH FIBRINOLYSIS (BEAKER) (test 1.7 % 0.0-5.0 code = 1414) [id number] 11:25:00 Test Item Value Reference Range Interpretation Comments Potassium (test code = 4.6 meq/L 3.5-5.1 2823-3) SID (test code = SID) Credit Or Loans Officer ID [facility] C Lab Interpretation (test Normal code = 72197-0) [facility] 11:25[facility]00 Test Item Value Reference Range Interpretation Comments Sodium (test code = 134 meq/L 136-145 L 2951-2) SID (test code = SID) Credit [employer] Loans Officer ID [facility] C Lab Interpretation (test Abnormal code = 65371-6) [facility]UM2020-12-19 11:25:00 Test Item Value Reference Range Interpretation Comments MAGNESIUM (BEAKER) (test code = 2.7 mg/dL 1.6-2.6 H 627) Credit [employer] Loans Officer ID [facility] [id number] 11:25:00 Test Item Value Reference Range Interpretation Comments PHOSPHORUS (BEAKER) (test code = 6.4 mg/dL 2.3-4.7 H 604) [employer] Lo[employer] Officer ID - [facility] [id number] 11:25:00 Test Item Value Reference Range Interpretation Comments POTASSIUM (BEAKER) (test code = 4.6 meq/L 3.5-5.1 379) [employer] Officer ID - [facility] [id number] 11:25:00 Test Item Value Reference Range Interpretation Comments SODIUM (BEAKER) (test code = 381) 134 meq/L 136-145 L [employer] Officer ID - [facility] CPT/[id number] 11:09:00 Test Item Value Reference Range Interpretation Comments PROTIME (BEAKER) (test code = 21.3 seconds 11.9-14.2 H 759) INR (BEAKER) (test code = 370) 1.90 <=5.90 PARTIAL THROMBOPLASTIN TIME 67.1 seconds 22.5-36.0 H (BEAKER) (test code = 760) Effective 03/11/2019: PT Reference Range ChangeNew: 11.9-14.2 Previous: 11.7- 14.7RECOMMENDED COUMADIN/WARFARIN INR THERAPY RANGESSTANDARD DOSE: 2.0-3.0 Includes: PROPHYLAXIS for venous thrombosis, systemic embolization; TREATMENT for venous thrombosis and/or pulmonary embolus.HIGH RISK: Target INR is2.5-3.5 for patients wiht mechanical heart valves.Please draw from art line onlyPlease draw from artline onlyCALCIUM, [id number] 11:04:00 Test Item Value Reference Range Interpretation Comments CALCIUM IONIZED (BEAKER) (test 1.41 mmol/L 1.12-1.27 H code = 698) PH, BLOOD (BEAKER) (test code = 7.39 1810) PH, [id number] 11:03:00 Test Item Value Reference Range Interpretation Comments PH ARTERIAL (BEAKER) (test code = 383) 7.39 7.35-7.45 BASIC METABOLIC [id number] 04:54:00 Test Item Value Reference Range Interpretation Comments SODIUM (BEAKER) 136 meq/L 136-145 (test code = 381) POTASSIUM (BEAKER) 4.7 meq/L 3.5-5.1 (test code = 379) CHLORIDE (BEAKER) 101 meq/L 98-107 (test code = 382) CO2 (BEAKER) (test 24 meq/L 22-29 code = 355) BLOOD UREA NITROGEN 42 mg/dL 7-21 H (BEAKER) (test code = 354) CREATININE (BEAKER) 4.35 mg/dL 0.57-1.25 H (test code = 358) GLUCOSE RANDOM 116 mg/dL 70-105 H (BEAKER) (test code = 652) CALCIUM (BEAKER) 11.1 mg/dL 8.4-10.2 H (test code = 697) EGFR (BEAKER) (test 13 mL/min/1.73 ESTIMA DUANE GFR IS code = 1092) sq m NOT ACCURATE CREATININE CLEARANCE IN PREDICTING GLOMERULAR FILTRATION RATE . ESTIMATED GFR I S NOT APPLICABLE FOR DIALYSIS PATIEN TS. [employer] Officer ID Bettie WOOTEN WHepatic function [id number] 04:48:00 Test Item Value Reference Range Interpretation Comments Protein, Total (test code 6.1 6.0- 8.3 gm/dL = 2885-2) Albumin (test code = 2.9 g/dL 3.5-5 L 08240-8) Total Bilirubin (test code 1.2 mg/dL 0.2-1.2 = 1975-2) Bilirubin, Direct (test 0.8 mg/dL 0.1-0.5 H code = 1967-7) Alkaline Phosphatase (test 69 U/L 40-150 code = 6768-6) AST (test code = 1920-8) 25 U/L 5-34 ALT (test code = 1742-6) 17 U/L 6-55 SID (test code = SID) [employer] Officer DOROTA WOOTEN W Lab Interpretation (test Abnormal code = 10407-8) [facility] HospitalLactate dehydrogenase (LDH)2020-10-01 04:48:00 Test Item Value Reference Range Interpretation Comments LDH (test code = 2532-0) 352 U/L 125-220 H SID (test code = SID) [employer] Officer DOROTA WOOTEN W Lab Interpretation (test Abnormal code = 37755-1) [facility]MAGN[facility]UM2020-12-19 04:48:00 Test Item Value Reference Range Interpretation Comments MAGNESIUM (BEAKER) (test code = 2.5 mg/dL 1.6-2.6 627) [employer] Officer ID Bettie WOOTEN [id number] 04:48:00 Test Item Value Reference Range Interpretation Comments PHOSPHORUS (BEAKER) (test code = 6.3 mg/dL 2.3-4.7 H 604) [employer] Officer ID Bettie WOOTEN WHEPATIC FUNCTION [id number] 04:48:00 Test Item Value Reference Range Interpretation Comments TOTAL PROTEIN (BEAKER) (test code = 6.1 gm/dL 6.0-8.3 770) ALBUMIN (BEAKER) (test code = 1145) 2.9 g/dL 3.5-5.0 L BILIRUBIN TOTAL (BEAKER) (test code 1.2 mg/dL 0.2-1.2 = 377) BILIRUBIN DIRECT (BEAKER) (test 0.8 mg/dL 0.1-0.5 H code = 706) ALKALINE PHOSPHATASE (BEAKER) (test 69 U/L 40-150 code = 346) AST (SGOT) (BEAKER) (test code = 25 U/L 5-34 353) ALT (SGPT) (BEAKER) (test code = 17 U/L 6-55 347) [employer] Officer ID - SUGAR WLACTATE DEHYDROGENASE (LDH)2020-10-01 04:48:00 Test Item Value Reference Range Interpretation Comments LACTATE DEHYDROGENASE (BEAKER) (test 352 U/L 125-220 H code = 635) [employer] Officer ID Bettie WOOTEN [id number] 04:31:00 Test Item Value Reference Range Interpretation Comments PROTIME (BEAKER) (test code = 19.8 seconds 11.9-14.2 H 759) INR (BEAKER) (test code = 370) 1.73 <=5.90 PARTIAL THROMBOPLASTIN TIME 76.7 seconds 22.5-36.0 H (BEAKER) (test code = 760) Effective 03/11/2019: PT Reference Range ChangeNew: 11.9-14.2 Previous: 11.7- 14.7RECOMMENDED COUMADIN/WARFARIN INR THERAPY RANGESSTANDARD DOSE: 2.0-3.0 Includes: PROPHYLAXIS for venous thrombosis, systemic embolization; TREATMENT for venous thrombosis and/or pulmonary embolus.HIGH RISK: Target INR is2.5-3.5 for patients wiht mechanical heart valves.[id number] 04:30:00 Test Item Value Reference Range Interpretation Comments Fibrinogen (test code = 3255-7) 716 mg/dl 225-434 H Lab Interpretation (test code = Abnormal 65191-0) [facility] Test Item Value Reference Range Interpretation Comments FIBRINOGEN LEVEL (BEAKER) (test 716 mg/dl 225-434 H code = 658) CBC (HEMOGRAM ONLY)2020-10-01 04:28:00 Test Item Value Reference Range Interpretation Comments WHITE BLOOD CELL COUNT (BEAKER) 11.8 K/ L 3.5-10.5 H (test code = 775) RED BLOOD CELL COUNT (BEAKER) 2.88 M/ L 4.63-6.08 L (test code = 761) HEMOGLOBIN (BEAKER) (test code = 8.8 GM/DL 13.7-17.5 L 410) HEMATOCRIT (BEAKER) (test code = 28.1 % 40.1-51.0 L 411) MEAN CORPUSCULAR VOLUME (BEAKER) 97.6 fL 79.0-92.2 H (test code = 753) MEAN CORPUSCULAR HEMOGLOBIN 30.6 pg 25.7-32.2 (BEAKER) (test code = 751) MEAN CORPUSCULAR HEMOGLOBIN CONC 31.3 GM/DL 32.3-36.5 L (BEAKER) (test code = 752) RED CELL DISTRIBUTION WIDTH 16.6 % 11.6-14.4 H (BEAKER) (test code = 412) PLATELET COUNT (BEAKER) (test code 92 K/CU MM 150-450 L = 756) MEAN PLATELET VOLUME (BEAKER) 11.1 fL 9.4-12.4 (test code = 754) NUCLEATED RED BLOOD CELLS (BEAKER) 0 /100 WBC 0-0 (test code = 413) Lactic Acid, [id number] 04:22:00 Test Item Value Reference Range Interpretation Comments Lactate, Art (test code = 1.0 mmol/L 0.5-2.2 4) ISD (test code = SID) [employer] Loans Officer ID - SUGAR W Lab Interpretation (test Normal code = 23565-8) [facility], [id number] 04:22:00 Test Item Value Reference Range Interpretation Comments LACTATE BLOOD ARTERIAL (2) 1.0 mmol/L 0.5-2.2 (BEAKER) (test code = 2874) [employer] Loans Officer ID - SUGAR WOXYGEN SATURATION, [id number] 04:12:00 Test Item Value Reference Range Interpretation Comments O2 SATURATION (MEASURED) (BEAKER) 66.7 % (test code = 1455) RAD, CHEST, 1 VIEW, NON [id number] 02:49:00Reason for exam:->s/p acbShould this be performed at the bedside?->Yes [facility] 1945 Sex: MFINAL REPORT RAD, CHEST, 1 VIEW, NON DEPT INDICATION: s/p acb TYESHA RISON: Prior day's exam FINDINGS: Portable frontal view of the chest. IMPRESSION: Support Lines: Stable. Lungs and pleura: No change in small pleural effusions with adjacent left basilar airspace opacity. No new consolidation. No pneumothorax.Heart and mediastinum: Stable contours.Additional findings: None. Signed: Linda Lopez MDReport Verified Date/Time: 10/01/2020 02:49:35 POTASSIUM 2020-10-01 00:41:00 Test Item Value Reference Range Interpretation Comments POTASSIUM (BEAKER) (test code = 4.6 meq/L 3.5-5.1 379) [employer] Lo[employer] Officer ID - SUGAR [facility], [id number] 00:33:00 Test Item Value Reference Range Interpretation Comments PH ARTERIAL (BEAKER) (test code = 383) 7.41 7.35-7.45 POCT-GLUCOSE [id number] 00:32:00 Test Item Value Reference Range Interpretation Comments POC-GLUCOSE METER 110 mg/dL 70-110 : TESTED A T [facility] 6720 (BEAKER) (test code = [place], 1538) [address]: Credit Or Loans Officer/Techni sandi ID = [id number] for CHANDU DURBIN (KODI Amaya [id number] 21:32:00 Test Item Value Reference Range Interpretation Comments MAGNESIUM (BEAKER) (test code = 2.5 mg/dL 1.6-2.6 627) [employer] Lo[employer] Officer ID - [id number] 21:32:00 Test Item Value Reference Range Interpretation Comments PHOSPHORUS (BEAKER) (test code = 5.8 mg/dL 2.3-4.7 H 604) [employer] Officer ID - [id number] 21:32:00 Test Item Value Reference Range Interpretation Comments POTASSIUM (BEAKER) (test code = 4.6 meq/L 3.5-5.1 379) [employer] Officer ID - [id number] 21:32:00 Test Item Value Reference Range Interpretation Comments SODIUM (BEAKER) (test code = 381) 134 meq/L 136-145 L [employer] Lo[employer] Officer ID - DBCALCIUM, [id number] 21:02:00 Test Item Value Reference Range Interpretation Comments CALCIUM IONIZED (BEAKER) (test 1.39 mmol/L 1.12-1.27 H code = 698) PH, BLOOD (BEAKER) (test code = 7.42 1810) [id number] 15:38:00 Test Item Value Reference Range Interpretation Comments MAGNESIUM (BEAKER) (test code = 2.5 mg/dL 1.6-2.6 627) [employer] Lo[employer] Officer ID - [id number] 15:38:00 Test Item Value Reference Range Interpretation Comments PHOSPHORUS (BEAKER) (test code = 4.9 mg/dL 2.3-4.7 H 604) [employer] Officer ID - [id number] 15:38:00 Test Item Value Reference Range Interpretation Comments POTASSIUM (BEAKER) (test code = 4.5 meq/L 3.5-5.1 379) [employer] Officer ID - [id number] 15:38:00 Test Item Value Reference Range Interpretation Comments SODIUM (BEAKER) (test code = 381) 137 meq/L 136-145 [employer] Lo[employer] Officer ID - ADMINCALCIUM, [id number] 15:28:00 Test Item Value Reference Range Interpretation Comments CALCIUM IONIZED (BEAKER) (test 1.40 mmol/L 1.12-1.27 H code = 698) PH, BLOOD (BEAKER) (test code = 7.40 1810) PH, [id number] 15:27:00 Test Item Value Reference Range Interpretation Comments PH ARTERIAL (TAY) (test code = 383) 7.40 7.35-7.45 POCT-GLUCOSE [id number] 12:03:00 Test Item Value Reference Range Interpretation Comments POC-GLUCOSE METER 129 mg/dL 70-110 H : TESTED A T [facility] 6720 (TAY) (test code = [place], 1538) [address]: Credit Or Loans Officer/Techni sandi ID = [id number] for Go Katie yao RAD, CHEST, 1 VIEW, NON [id number] 03:53:00Reason for exam:->s/p acbShould this be performed at the bedside?->Yes [facility] : 1945 Sex: MFINAL REPORT RAD, CHEST, 1 VIEW, NON DEPT INDICATION: s/p acb TYESHA RISON: Prior day's exam FINDINGS: Portable frontal view of the chest. IMPRESSION: Support Lines: Interval extubation and removal of the enteric tube. Intra-aortic balloon pump marker is no longer seen. Stable Flushing-Boris catheter. Lungs and pleura: Unchanged hypoinflated lungs with central pulmonary venous congestion. No interval consolidation. Unchanged small left pleural effusion. No pneumothorax.Heart and mediastinum: Stable contours.Additional findings: None. Signed: Linda Lopez Verified Date/Time: 09/30/2020 03:53:52 BASIC METABOLIC [id number] 03:41:00 Test Item Value Reference Range Interpretation Comments SODIUM (BEAKER) 137 meq/L 136-145 (test code = 381) POTASSIUM (BEAKER) 4.1 meq/L 3.5-5.1 (test code = 379) CHLORIDE (BEAKER) 102 meq/L 98-107 (test code = 382) CO2 (BEAKER) (test 24 meq/L 22-29 code = 355) BLOOD UREA NITROGEN 22 mg/dL 7-21 H (BEAKER) (test code = 354) CREATININE (BEAKER) 2.64 mg/dL 0.57-1.25 H (test code = 358) GLUCOSE RANDOM 115 mg/dL 70-105 H (BEAKER) (test code = 652) CALCIUM (BEAKER) 10.6 mg/dL 8.4-10.2 H (test code = 697) EGFR (BEAKER) (test 24 mL/min/1.73 ESTIMA DUANE GFR IS code = 1092) sq m NOT ACCURATE CREATININE CLEARANCE IN PREDICTING GLOMERULAR FILTRATION RATE . ESTIMATED GFR I S NOT APPLICABLE FOR DIALYSIS PATIEN TS. [employer] Lo[employer] Officer ID - [id number] 03:34:00 Test Item Value Reference Range Interpretation Comments MAGNESIUM (BEAKER) (test code = 2.2 mg/dL 1.6-2.6 627) [employer] Lo[employer] Officer ID - [id number] 03:34:00 Test Item Value Reference Range Interpretation Comments PHOSPHORUS (BEAKER) (test code = 3.8 mg/dL 2.3-4.7 604) [employer] Lo[employer] Officer ID - [id number] 03:23:00 Test Item Value Reference Range Interpretation Comments PARTIAL THROMBOPLASTIN TIME 37.3 seconds 22.5-36.0 H (BEAKER) (test code = 760) Blood gas, [id number] 03:08:00 Test Item Value Reference Range Interpretation Comments pH, Arterial (test code = 2744-1) 7.41 7.35-7.45 pCO2, Arterial (test code = 43 35- 45 mm Hg 2019-05) pO2, Arterial (test code = 2703-7) 137 80- 90 mm Hg H O2 Sat, Arterial (test code = 98.7 % 96-97 H 2707-6) HCO3, Arterial (test code = 27 mmol/L 1960-01) Base Excess, Arterial (test code = 1.9 mmol/L -2-3 1925-7) Patient Temperature (test code = 37.1 8310-5) FIO2 (test code = 1819) 36 Lab Interpretation (test code = Abnormal 21762-2) [facility]ATION, [id number] 03:08:00 Test Item Value Reference Range Interpretation Comments O2 SATURATION (MEASURED) (BEAKER) 77.4 % (test code = 1455) BLOOD GAS, [id number] 03:08:00 Test Item Value Reference Range Interpretation Comments PH ARTERIAL (BEAKER) (test code = 7.41 7.35-7.45 383) PCO2 ARTERIAL (BEAKER) (test code 43 mm Hg 35-45 = 384) PO2 ARTERIAL (BEAKER) (test code = 137 mm Hg 80-90 H 385) O2 SATURATION ARTERIAL (BEAKER) 98.7 % 96.0-97.0 H (test code = 386) HCO3 ARTERIAL (BEAKER) (test code 27 mmol/L 21-29 = 388) BASE EXCESS ARTERIAL (BEAKER) 1.9 mmol/L -2.0-3.0 (test code = 387) PATIENT TEMPERATURE (BEAKER) (test 37.1 code = 1818) FIO2 (BEAKER) (test code = 1819) 36.0 CBC (HEMOGRAM ONLY)2020-09-30 03:05:00 Test Item Value Reference Range Interpretation Comments WHITE BLOOD CELL COUNT (BEAKER) 12.8 K/ L 3.5-10.5 H (test code = 775) RED BLOOD CELL COUNT (BEAKER) 2.96 M/ L 4.63-6.08 L (test code = 761) HEMOGLOBIN (BEAKER) (test code = 8.9 GM/DL 13.7-17.5 L 410) HEMATOCRIT (BEAKER) (test code = 28.2 % 40.1-51.0 L 411) MEAN CORPUSCULAR VOLUME (BEAKER) 95.3 fL 79.0-92.2 H (test code = 753) MEAN CORPUSCULAR HEMOGLOBIN 30.1 pg 25.7-32.2 (BEAKER) (test code = 751) MEAN CORPUSCULAR HEMOGLOBIN CONC 31.6 GM/DL 32.3-36.5 L (BEAKER) (test code = 752) RED CELL DISTRIBUTION WIDTH 17.3 % 11.6-14.4 H (BEAKER) (test code = 412) PLATELET COUNT (BEAKER) (test code 86 K/CU MM 150-450 L = 756) MEAN PLATELET VOLUME (BEAKER) 10.4 fL 9.4-12.4 (test code = 754) NUCLEATED RED BLOOD CELLS (BEAKER) 0 /100 WBC 0-0 (test code = 413) [id number] 23:48:00 Test Item Value Reference Range Interpretation Comments MAGNESIUM (BEAKER) (test code = 2.4 mg/dL 1.6-2.6 627) [employer] Lo[employer] Officer ID - ADRIANNE [id number] 23:48:00 Test Item Value Reference Range Interpretation Comments POTASSIUM (BEAKER) (test code = 4.1 meq/L 3.5-5.1 379) [employer] Lo[employer] Officer ID - ADRIANNE LONGOCT-GLUCOSE [id number] 23:36:00 Test Item Value Reference Range Interpretation Comments POC-GLUCOSE METER 117 mg/dL 70-110 H : TESTED A T [facility] 6720 (BEAKER) (test code [facility], = 1538) [address]: Credit Or Loans Officer/Techni sandi ID = [id number] for MARLY MO CALCIUM, [id number] 23:30:00 Test Item Value Reference Range Interpretation Comments CALCIUM IONIZED (BEAKER) (test 1.32 mmol/L 1.12-1.27 H code = 698) PH, BLOOD (BEAKER) (test code = 7.43 1810) [id number] 20:23:00 Test Item Value Reference Range Interpretation Comments MAGNESIUM (BEAKER) (test code = 2.0 mg/dL 1.6-2.6 627) [employer] Loans Officer ID - [id number] 20:23:00 Test Item Value Reference Range Interpretation Comments PHOSPHORUS (BEAKER) (test code = 3.6 mg/dL 2.3-4.7 604) [employer] Lo[employer] Officer ID - [id number] 20:23:00 Test Item Value Reference Range Interpretation Comments POTASSIUM (BEAKER) (test code = 4.0 meq/L 3.5-5.1 379) [employer] Lo[employer] Officer ID - [id number] 20:23:00 Test Item Value Reference Range Interpretation Comments SODIUM (BEAKER) (test code = 381) 135 meq/L 136-145 L [employer] Lo[employer] Officer ID - BSPOCT-GLUCOSE [id number] 19:53:00 Test Item Value Reference Range Interpretation Comments POC-GLUCOSE METER 97 mg/dL 70-110 : TESTED A T [facility] 6720 (BEAKER) (test code = [facility], 1538) [address]: Credit Or Loans Officer/Techni sandi ID = [id number] for MARLY MO POCT-GLUCOSE [id number] 18:25:00 Test Item Value Reference Range Interpretation Comments POC-GLUCOSE METER 115 mg/dL 70-110 H : TESTED A T [facility] 6720 (BEAKER) (test code = [facility], 1538) [address]: Credit Or Loans Officer/Techni sandi ID = [id number] for BARR[place], JULIO PHEN [id number] 17:05:00 Test Item Value Reference Range Interpretation Comments POTASSIUM (BEAKER) (test code = 4.2 meq/L 3.5-5.1 379) [employer] Lo[employer] Officer ID - ADMINCALCIUM, [id number] 16:52:00 Test Item Value Reference Range Interpretation Comments CALCIUM IONIZED (BEAKER) (test 1.31 mmol/L 1.12-1.27 H code = 698) PH, BLOOD (BEAKER) (test code = 7.46 1810) POCT-GLUCOSE [id number] 16:51:00 Test Item Value Reference Range Interpretation Comments POC-GLUCOSE METER 129 mg/dL 70-110 H : TESTED A T [facility] 6720 (BEAKER) (test code = [facility], 1538) [address]: Credit [employer] Loans Officer/Techni sandi ID = [id number] for BARRENTINE, JULIO PHEN HGB/HCT (H&H)-Stat [id number] 15:05:00 Test Item Value Reference Range Interpretation Comments Hemoglobin (test code = 786-4) 9.0 13.0- 16.8 GM/DL L Hematocrit (test code = 4544-3) 26.0 % 40-50 L Lab Interpretation (test code = Abnormal 23496-9) [facility] [id number] 15:05:00 Test Item Value Reference Range Interpretation Comments Glucose (test code = 2345-7) 170 mg/dL 70-110 H Lab Interpretation (test code = Abnormal 27444-4) [facility] [id number] 15:05:00 Test Item Value Reference Range Interpretation Comments Sodium (test code = 2951-2) 136 meq/L 136-145 Lab Interpretation (test code = Normal 20882-7) [facility]assium[facility] [id number] 15:05:00 Test Item Value Reference Range Interpretation Comments Potassium (test code = 2823-3) 4.1 meq/L 3.6-5.5 Lab Interpretation (test code = Normal 33575-0) [facility] [id number] 15:05:00 Test Item Value Reference Range Interpretation Comments SODIUM (BEAKER) (test code = 381) 136 meq/L 136-145 POTASSIUM-STAT [id number] 15:05:00 Test Item Value Reference Range Interpretation Comments POTASSIUM (BEAKER) (test code = 4.1 meq/L 3.6-5.5 379) BLOOD GAS, [id number] 15:05:00 Test Item Value Reference Range Interpretation Comments PH ARTERIAL (BEAKER) (test code = 7.48 7.35-7.45 H 383) PCO2 ARTERIAL (BEAKER) (test code 36 mm Hg 35-45 = 384) PO2 ARTERIAL (BEAKER) (test code = 181 mm Hg 80-90 H 385) O2 SATURATION ARTERIAL (BEAKER) 99.3 % 96.0-97.0 H (test code = 386) HCO3 ARTERIAL (BEAKER) (test code 26 mmol/L 21-29 = 388) BASE EXCESS ARTERIAL (BEAKER) 2.4 mmol/L -2.0-3.0 (test code = 387) PATIENT TEMPERATURE (BEAKER) (test 36.8 code = 1818) FIO2 (BEAKER) (test code = 1819) 40.0 GLUCOSE-STAT [id number] 15:05:00 Test Item Value Reference Range Interpretation Comments GLUCOSE RANDOM (BEAKER) (test code 170 mg/dL 70-110 H = 652) HGB/HCT (H&H) - STAT [id number] 15:05:00 Test Item Value Reference Range Interpretation Comments HEMOGLOBIN (BEAKER) (test code = 9.0 GM/DL 13.0-16.8 L 410) HEMATOCRIT (BEAKER) (test code = 26.0 % 40.0-50.0 L 411) [id number] 12:12:00 Test Item Value Reference Range Interpretation Comments POTASSIUM (BEAKER) (test code = 4.4 meq/L 3.5-5.1 379) [employer] Lo[employer] Officer ID - BSPOCT-GLUCOSE [id number] 11:58:00 Test Item Value Reference Range Interpretation Comments POC-GLUCOSE METER 120 mg/dL 70-110 H : TESTED A T [facility] 6720 (BEAKER) (test code = [facility], 1538) [address]: Credit [employer] Loans Officer/Techni sandi ID = [id number] for BARRENTINE, JULIO PHEN POCT-GLUCOSE [id number] 10:39:00 Test Item Value Reference Range Interpretation Comments POC-GLUCOSE METER 129 mg/dL 70-110 H : TESTED A T [facility] 6720 (BEAKER) (test code = [facility] [place] [employer] [facility], 1538) [address]: Credit [employer] Loans Officer/Techni sandi ID = [id number] for BARRENTINE, JULIO PHEN HEPATIC FUNCTION [id number] 08:52:00 Test Item Value Reference Range Interpretation Comments TOTAL PROTEIN (BEAKER) (test code = 5.9 gm/dL 6.0-8.3 L 770) ALBUMIN (BEAKER) (test code = 1145) 3.1 g/dL 3.5-5.0 L BILIRUBIN TOTAL (BEAKER) (test code 2.1 mg/dL 0.2-1.2 H = 377) BILIRUBIN DIRECT (BEAKER) (test 1.3 mg/dL 0.1-0.5 H code = 706) ALKALINE PHOSPHATASE (BEAKER) (test 56 U/L 40-150 code = 346) AST (SGOT) (BEAKER) (test code = 35 U/L 5-34 H 353) ALT (SGPT) (BEAKER) (test code = 16 U/L 6-55 347) [employer] Lo[employer] Officer ID - [id number] 08:36:00 Test Item Value Reference Range Interpretation Comments MAGNESIUM (BEAKER) (test code = 2.1 mg/dL 1.6-2.6 627) Credit [employer] Loans Officer ID - ADRIANNE [id number] 08:36:00 Test Item Value Reference Range Interpretation Comments PHOSPHORUS (BEAKER) (test code = 4.2 mg/dL 2.3-4.7 604) [employer] Lo[employer] Officer ID - ADRIANNE [id number] 08:36:00 Test Item Value Reference Range Interpretation Comments POTASSIUM (BEAKER) (test code = 4.6 meq/L 3.5-5.1 379) [employer] Lo[employer] Officer ID - ADRIANNE [id number] 08:36:00 Test Item Value Reference Range Interpretation Comments SODIUM (BEAKER) (test code = 381) 137 meq/L 136-145 [employer] Lo[employer] Officer ID - ADRIANNE LONGH, [id number] 08:04:00 Test Item Value Reference Range Interpretation Comments PH ARTERIAL (BEAKER) (test code = 383) 7.47 7.35-7.45 H CALCIUM, [id number] 08:03:00 Test Item Value Reference Range Interpretation Comments CALCIUM IONIZED (BEAKER) (test 1.25 mmol/L 1.12-1.27 code = 698) PH, BLOOD (BEAKER) (test code = 7.47 1810) SARS-COV2/RT-PCR ([facility])2020-09-29 07:37:00 Test Item Value Reference Range Interpretation Comments SARS-COV2/RT-PCR (test See external report Not Detected, code = 9652406) for linked test Negative, See external report for linked test SARS-COV-2 PERFORMING [facility] (test code = 3791748) POCT-GLUCOSE [id number] 05:52:00 Test Item Value Reference Range Interpretation Comments POC-GLUCOSE METER 160 mg/dL 70-110 H : TESTED A T [facility] 67 (BEAKER) (test code = [place], 1538) [address]: Credit Or Loans Officer/Techni sandi ID = [id number] for RANDELL ZEPEDA POCT-GLUCOSE [id number] 04:59:00 Test Item Value Reference Range Interpretation Comments POC-GLUCOSE METER 151 mg/dL 70-110 H : Pt. on I V insulin: (BEAKER) (test code = TESTED AT [facility] 6720 1538) [place], [address]: Credit Or Loans Officer/Techni sandi ID = [id number] for RANDELL ZEPEDA RAD, CHEST, 1 VIEW, NON [id number] 04:45:00Reason for exam:->s/p acbShould this be performed at the bedside?->Yes [facility] : 1945 Sex: MFINAL REPORT RAD, CHEST, 1 VIEW, NON DEPT INDICATION: s/p acb TYESHA RISON: Exam from five hours prior FINDINGS: Portable frontal view of the chest. IMPRESSION: Support Lines: Similar location of the intra-aortic balloon pump marker located 5.8 cm caudal to the superior margin of the aortic arch. Otherwise, stable support apparatus. Lungs and pleura: Unchanged bilateral parenchymal opacities and trace left pleural effusion. No pneumothorax.Heart and mediastinum: Stable contours.Additional findings: None. Signed: Linda Lopez [facility] Verified Date/Time: 09/29/2020 04:45:24 CBC (HEMOGRAM ONLY)2020-09-29 04:15:00 Test Item Value Reference Range Interpretation Comments WHITE BLOOD CELL COUNT 15.6 K/ L 3.5-10.5 H (BEAKER) (test code = 775) RED BLOOD CELL COUNT 2.74 M/ L 4.63-6.08 L (BEAKER) (test code = 761) HEMOGLOBIN (BEAKER) 8.3 GM/DL 13.7-17.5 L (test code = 410) HEMATOCRIT (BEAKER) 26.2 % 40.1-51.0 L (test code = 411) MEAN CORPUSCULAR 95.6 fL 79.0-92.2 H Discordant MCV VOLUME (BEAKER) (test result s compared to code = 753) previous result s; clinical correl ation required. MEAN CORPUSCULAR 30.3 pg 25.7-32.2 HEMOGLOBIN (BEAKER) (test code = 751) MEAN CORPUSCULAR 31.7 GM/DL 32.3-36.5 L HEMOGLOBIN CONC (BEAKER) (test code = 752) RED CELL DISTRIBUTION 17.7 % 11.6-14.4 H WIDTH (BEAKER) (test code = 412) PLATELET COUNT 118 K/CU MM 150-450 L (BEAKER) (test code = 756) MEAN PLATELET VOLUME 10.6 fL 9.4-12.4 (BEAKER) (test code = 754) NUCLEATED RED BLOOD 0 /100 WBC 0-0 CELLS (BEAKER) (test code = 413) [id number] 04:01:00 Test Item Value Reference Range Interpretation Comments PARTIAL THROMBOPLASTIN TIME 83.5 seconds 22.5-36.0 H (BEAKER) (test code = 760) BASIC METABOLIC [id number] 04:01:00 Test Item Value Reference Range Interpretation Comments SODIUM (BEAKER) 139 meq/L 136-145 (test code = 381) POTASSIUM (BEAKER) 5.0 meq/L 3.5-5.1 (test code = 379) CHLORIDE (BEAKER) 104 meq/L 98-107 (test code = 382) CO2 (BEAKER) (test 20 meq/L 22-29 L code = 355) BLOOD UREA NITROGEN 29 mg/dL 7-21 H (BEAKER) (test code = 354) CREATININE (BEAKER) 3.85 mg/dL 0.57-1.25 H (test code = 358) GLUCOSE RANDOM 175 mg/dL 70-105 H (BEAKER) (test code = 652) CALCIUM (BEAKER) 9.8 mg/dL 8.4-10.2 (test code = 697) EGFR (BEAKER) (test 15 mL/min/1.73 ESTIMA DUANE GFR IS code = 1092) sq m NOT ACCURATE CREATININE CLEARANCE IN PREDICTING GLOMERULAR FILTRATION RATE . ESTIMATED GFR I S NOT APPLICABLE FOR DIALYSIS PATIEN TS. Credit [employer] Loans Officer ID - YULIANA MPROTHROMBIN TIME/[id number] 03:59:00 Test Item Value Reference Range Interpretation Comments PROTIME (BEAKER) (test code = 23.1 seconds 11.9-14.2 H 759) INR (BEAKER) (test code = 370) 2.13 <=5.90 Effective 03/11/2019: PT Reference Range ChangeNew: 11.9-14.2 Previous: 11.7- 14.7RECOMMENDED COUMADIN/WARFARIN INR THERAPY RANGESSTANDARD DOSE: 2.0-3.0 Includes: PROPHYLAXIS for venous thrombosis, systemic embolization; TREATMENT for venous thrombosis and/or pulmonary embolus.HIGH RISK: Target INR is2.5-3.5 for patients wiht mechanical heart valves.[id number] 03:55:00 Test Item Value Reference Range Interpretation Comments MAGNESIUM (BEAKER) (test code = 2.0 mg/dL 1.6-2.6 627) Credit Or Loans Officer ID - YULIANA [id number] 03:55:00 Test Item Value Reference Range Interpretation Comments PHOSPHORUS (BEAKER) (test code = 4.3 mg/dL 2.3-4.7 604) [employer] Loans Officer ID - YULIANA MLACTIC ACID, [id number] 03:42:00 Test Item Value Reference Range Interpretation Comments LACTATE BLOOD ARTERIAL (2) 0.8 mmol/L 0.5-2.2 (BEAKER) (test code = 2874) [employer] Officer ID - ADRIANNE LBLOOD GAS, [id number] 03:28:00 Test Item Value Reference Range Interpretation Comments PH ARTERIAL (BEAKER) (test code = 7.43 7.35-7.45 383) PCO2 ARTERIAL (BEAKER) (test code 36 mm Hg 35-45 = 384) PO2 ARTERIAL (BEAKER) (test code 153 mm Hg 80-90 H = 385) O2 SATURATION ARTERIAL (BEAKER) 99.0 % 96.0-97.0 H (test code = 386) HCO3 ARTERIAL (BEAKER) (test code 24 mmol/L 21-29 = 388) BASE EXCESS ARTERIAL (BEAKER) -0.4 mmol/L -2.0-3.0 (test code = 387) PATIENT TEMPERATURE (BEAKER) 36.6 (test code = 1818) FIO2 (BEAKER) (test code = 1819) 40.0 GLUCOSE-STAT [id number] 03:28:00 Test Item Value Reference Range Interpretation Comments GLUCOSE RANDOM (BEAKER) (test code 170 mg/dL 70-110 H = 652) HGB/HCT (H&H) - STAT [id number] 03:28:00 Test Item Value Reference Range Interpretation Comments HEMOGLOBIN (BEAKER) (test code = 8.9 GM/DL 13.0-16.8 L 410) HEMATOCRIT (BEAKER) (test code = 26.0 % 40.0-50.0 L 411) SODIUM NA-STAT [id number] 03:27:00 Test Item Value Reference Range Interpretation Comments SODIUM (BEAKER) (test code = 381) 136 meq/L 136-145 POTASSIUM-STAT [id number] 03:27:00 Test Item Value Reference Range Interpretation Comments POTASSIUM (BEAKER) (test code = 4.9 meq/L 3.6-5.5 379) OXYGEN SATURATION, [id number] 03:27:00 Test Item Value Reference Range Interpretation Comments O2 SATURATION (MEASURED) (BEAKER) 80.7 % (test code = 1455) [id number] 00:37:00 Test Item Value Reference Range Interpretation Comments POTASSIUM (BEAKER) (test code = 5.0 meq/L 3.5-5.1 379) [employer] Officer ID - PIAYA LPOCT-GLUCOSE [id number] 00:16:00 Test Item Value Reference Range Interpretation Comments POC-GLUCOSE METER 143 mg/dL 70-110 H : TESTED A T [facility] 6720 (BEAKER) (test code = PAOLO Dey [facility], 1538) [address]: Credit [employer] Loans Officer/Techni sandi ID = [id number] for RANDELL ZEPEDA CALCIUM, [id number] 00:11:00 Test Item Value Reference Range Interpretation Comments CALCIUM IONIZED (BEAKER) (test 1.27 mmol/L 1.12-1.27 code = 698) PH, BLOOD (BEAKER) (test code = 7.44 1810) Prepare [id number] 23:54:00 Test Item Value Reference Range Interpretation Comments CROSSMATCH (test code = 2264) COMPATIBLE Unit ABO (test code = A Pos 6674666) UNIT NUMBER (test code = [id number] 934-0) Status (test code = 3382199) TX_TIMEINCHART Blood Bank Product (test code RED BLOOD CELLS = 2263) PRODUCT CODE (test code = [id number] 933-2) [id number] 23:54:00 Test Item Value Reference Range Interpretation Comments Unit ABO (test code = O Pos 2900968) UNIT NUMBER (test code = [id number] 934-0) Status (test code = 2962738) TX_TIMEINCHART Blood Bank Product (test code CRYOPRECIPITATE = 2263) PRODUCT CODE (test code = P9831M18 933-2) [facility] [id number] 23:54:00 Test Item Value Reference Range Interpretation Comments Unit ABO (test code = 8162696) A Pos UNIT NUMBER (test code = [id number] 934-0) Status (test code = 5470339) TX_TIMEINCHART Blood Bank Product (test code FFP = 2263) PRODUCT CODE (test code = X1955J01 933-2) [facility] [id number] 23:54:00 Test Item Value Reference Range Interpretation Comments Unit ABO (test code = 8971852) O Pos UNIT NUMBER (test code = [id number] 934-0) Status (test code = 2743265) TX_TIMEINCHART Blood Bank Product (test code PLATELETS = 2263) PRODUCT CODE (test code = U3128H50 933-2) [facility] 20:30:00 Test Item Value Reference Range Interpretation Comments MAGNESIUM (BEAKER) (test code = 1.9 mg/dL 1.6-2.6 627) Credit Or Loans Officer ID - [id number] 20:30:00 Test Item Value Reference Range Interpretation Comments PHOSPHORUS (BEAKER) (test code = 3.6 mg/dL 2.3-4.7 604) [employer] Loans Officer ID - [id number] 20:30:00 Test Item Value Reference Range Interpretation Comments POTASSIUM (BEAKER) (test code = 5.0 meq/L 3.5-5.1 379) [employer] Or Loans Officer ID - [id number] 20:30:00 Test Item Value Reference Range Interpretation Comments SODIUM (BEAKER) (test code = 381) 140 meq/L 136-145 [employer] Lo[employer] Officer ID - ADMINPOCT-GLUCOSE [id number] 20:17:00 Test Item Value Reference Range Interpretation Comments POC-GLUCOSE METER 125 mg/dL 70-110 H : TESTED A T [facility] 6720 (BEAKER) (test code = PAOLO Dey [facility], 1538) [id number]: Credit Or Loans Officer/Techni sandi ID = [id number] for RANDELL ZEPEDA PH, [id number] 20:05:00 Test Item Value Reference Range Interpretation Comments PH ARTERIAL (BEAKER) (test code = 383) 7.45 7.35-7.45 2D Echo W/Doppler(CW/PW/Color)2020-09-28 19:35:20Ejection FractionSLEH ECHO HEARTLAB MKCKESSON CPACSInterface, External Ris In - 09/28/2020 7:35 PM C STTransthoracic Echocardiography Report (TTE) Demographics Patient Name KODI MORAN Date of Study 09/28/2020 [place] Gender Male Visit Number [id number] Race Unknown Room Number 2C23 Number Date of 1945 Referring Humera Melgar Physician MD Bryant Age 75 year(s) [employer] Ofelia Dietz [facility] Interpreting Leonie Garcia MD Physician Fellow Ceasar Christensen MD Procedure Type of Study TTE procedure:2DECHO W DOPPLER(CW/PW/COLOR) (FER) Indications:Acute Chest Pain/Suspected CAD.Clinical HistoryHGB 8.9HCT 27.0 %, CAD, DM, ESRD, HLD, HTNs/p AVRs/p ACB x 4 (09/27/2020)Height: 73 inches Weight: 101.6 kg (224 lbs) BSA: 2.26 m^2 BMI: 29.55 kg/m^2HR: 71 bpm BP: 124/46 mmHg Summary 1. [...] Previous Study No prior studies available for comparison. Signature Santa ctronically signed by Leonie Gacria MD(Interpreting physician) on 09/28/2020 07:35 PM ------- Findings Left Ventricle Normal left ventricular chamber [...] pacing wire is visualized . Right Atrium RAsize is mildly dilated. RA pacing wire is visualized . Atrial Septum Normal interatrial septum by available views. Aortic Valve s/p mechanical AVR. Prosthesis appears well-seated by available views. AoV dimensionless obstructive index (DOI) is 0.51.Peak Grad 48.7 mmHg; Mean Grad 22.0 mmHg.Elevated doppler gradients may be due to high [...] Normal PV structure appears normal by available views. Pericardium No significant pericardial effusion is visualized. IVC/SVC/PA/PV/Pleural The estimated RA pressure by IVC dynamics 10mmHg . Mech Circ Support Chambers/Structures Left Atrium LA Volume: 122.78 ml LA Area: 31.23 cm^2 LA Vol. Index: 54 ml/m^2 Left Ventricle LVIDd: 5.88 cm LVEDV:172.06 ml LVIDs: 4.37 cm LVESV:83.4ml LV Septum Diastolic: 0.77 cm LVEF 2D [...] Ratio: 2.78 Mean Velocity: 0.91 m/s Peak Gradient:12.67 mmHg Mean Gradient: 4.65 mmHg Deceleration Time: [...] 4.11 mmHg LVOT Diameter: 2.23 cm LVOT VTI:29.29 cm LVOT Area: 3.91 cm^2 LVOT SV:114.34 ml LVOT CO: 8.12 l/min LVOT CI: 3.59 l/min/m^2 Tricuspid Valve TR Velocity: 3.21 m/s TR Gradient: 41.28 mmHgSanta Marta HospitalRAD, CHEST, 1 VIEW, NON [id number] 19:28:00Reason for exam:- >IABP positionShould this be performed at the bedside?->Yes [facility] 1945 Sex: MFINAL REPORT Chest dated 09/28/2020 COMPARISON: Same day Clinical Information: IABP position Comment: Heart is enlarged. Pulmonary vasculature is indistinct. Interstitial disease is seen bilaterally suggestive of vascular congestion or pulmonary edema. No pleural effusion or pneumothorax is seen. Endotracheal tube, Flushing-Boris catheter, mediastinal tube, nasogastric tube, left chest tube, and intra-aortic balloon pump device remain in place. There is no interval change in the position of the intra-aortic pump device. Signed: Linda Metcalf MDReport Verified Date/Time:09/28/2020 19:28:22 Reading Location: [facility] C0W Consult Reading Room POCT-GLUCOSE [id number] 18:16:00 Test Item Value Reference Range Interpretation Comments POC-GLUCOSE METER 115 mg/dL 70-110 H : TESTED A T [facility] 6720 (TAY) (test code = [place], 1538) 13585: Credit Or Loans Officer/Techni sandi ID = [id number] for NG BRAYAN, AMOS POCT-GLUCOSE [id number] 17:12:00 Test Item Value Reference Range Interpretation Comments POC-GLUCOSE METER 111 mg/dL 70-110 H : TESTED A T [facility] 6720 (BEAKER) (test code = [facility], 1538) 84352: Credit Or Loans Officer/Techni sandi ID = [id number] for NG BRAYAN, AMOS [id number] 16:23:00 Test Item Value Reference Range Interpretation Comments POTASSIUM (BEAKER) (test code = 4.8 meq/L 3.5-5.1 379) Credit Or Loans Officer ID - ADMINLACTIC ACID, [id number] 16:23:00 Test Item Value Reference Range Interpretation Comments LACTATE BLOOD ARTERIAL (2) 0.9 mmol/L 0.5-2.2 (BEAKER) (test code = 2874) [employer] Loans Officer ID - ADMINPOCT-GLUCOSE [id number] 16:10:00 Test Item Value Reference Range Interpretation Comments POC-GLUCOSE METER 105 mg/dL 70-110 : TESTED A T [facility] 6720 (BEAKER) (test code = [facility], 153) 59650: Credit Or Loans Officer/Techni sandi ID = [id number] for NG BRAYAN, AMOS CALCIUM, [id number] 16:02:00 Test Item Value Reference Range Interpretation Comments CALCIUM IONIZED (BEAKER) (test 1.19 mmol/L 1.12-1.27 code = 698) PH, BLOOD (BEAKER) (test code = 7.47 1810) POCT-GLUCOSE [id number] 15:22:00 Test Item Value Reference Range Interpretation Comments POC-GLUCOSE METER 94 mg/dL 70-110 : TESTED A T [facility] 6720 (BEAKER) (test code = [facility], 1538) 68896: Credit Or Loans Officer/Techni sandi ID = [id number] for NGUY EN, AMOS POCT-GLUCOSE [id number] 15:22:00 Test Item Value Reference Range Interpretation Comments POC-GLUCOSE METER 83 mg/dL 70-110 : TESTED A T [facility] 6720 (BEAKER) (test code = [facility], 1538) 22104: Credit Or Loans Officer/Techni sandi ID = [id number] for NGUY EN, AMOS LACTIC ACID, [id number] 12:56:00 Test Item Value Reference Range Interpretation Comments LACTATE BLOOD ARTERIAL (2) 1.1 mmol/L 0.5-2.2 (BEAKER) (test code = 2874) Credit Or Loans Officer ID - MARC [id number] 12:26:00 Test Item Value Reference Range Interpretation Comments POTASSIUM (BEAKER) (test code = 4.6 meq/L 3.5-5.1 379) Credit Or Loans Officer ID - MARC CPOCT-GLUCOSE [id number] 12:13:00 Test Item Value Reference Range Interpretation Comments POC-GLUCOSE METER 110 mg/dL 70-110 : TESTED A T [facility] 6720 (BEAKER) (test code = [facility], 1538) 51147: Credit Or Loans Officer/Techni sandi ID = [id number] for NG BRAYAN, AMOS POCT-GLUCOSE [id number] 10:30:00 Test Item Value Reference Range Interpretation Comments POC-GLUCOSE METER 125 mg/dL 70-110 H : TESTED A T [facility] 6720 (BEAKER) (test code = [facility], 1538) 68734: Credit Or Loans Officer/Techni sandi ID = [id number] for NG BRAYAN, AMOS POCT-GLUCOSE [id number] 09:28:00 Test Item Value Reference Range Interpretation Comments POC-GLUCOSE METER 131 mg/dL 70-110 H : TESTED A T [facility] 6720 (BEAKER) (test code = [facility], 1538) 83295: Credit Or Loans Officer/Techni sandi ID = [id number] for NG BRAYAN, AMOS RAD, CHEST, 1 VIEW, NON [id number] 08:56:00Reason for exam:->s/p acbShould this be performed at the bedside?->Yes [facility] : 1945 Sex: MFINAL REPORT RAD, CHEST, 1 VIEW, NON DEPT INDICATION: s/p acb TYESHA RISON: Prior day's exam FINDINGS: Portable frontal view of the chest. IMPRESSION: Support Lines: IABP marker is 4 cm below the top of the aortic arch. Remainder of the lines and tubes are unchanged.Lungs and pleura: Decreased airspace and pleural opacities. No pneumothorax.Heart and mediastinum: Stable contours. Stable surgical changes.Additional findings: None. Signed: Kely Babcock Verified Date/Time: 09/28/2020 08:56:48 Reading Location: [facility] Radiology Reading Room POCT-GLUCOSE [id number] 08:12:00 Test Item Value Reference Range Interpretation Comments POC-GLUCOSE METER 128 mg/dL 70-110 H : TESTED A T [facility] 6720 (Cleart[place]) (test code = [facility], 153) 45691: Credit Or Loans Officer/Techni sandi ID = [id number] for NG BRAYAN, AMOS CALCIUM, [id number] 08:09:00 Test Item Value Reference Range Interpretation Comments CALCIUM IONIZED (BEAKER) (test 1.15 mmol/L 1.12-1.27 code = 698) PH, BLOOD (BEAKER) (test code = 7.48 1810) POCT-GLUCOSE [id number] 07:06:00 Test Item Value Reference Range Interpretation Comments POC-GLUCOSE METER 103 mg/dL 70-110 : TESTED A T [facility] 6720 (BEAKER) (test code = [facility], 1538) 97728: Credit Or Loans Officer/Techni sandi ID = [id number] for NG BRAYAN, AMOS POCT-GLUCOSE [id number] 06:32:00 Test Item Value Reference Range Interpretation Comments POC-GLUCOSE METER 81 mg/dL 70-110 : TESTED A T [facility] 6720 (BEAKER) (test code = [facility], 1538) 64182: Credit Or Loans Officer/Techni sandi ID = [id number] for EDVINU ILON (V) NAYELY POC ACTIVATED CLOTTING [id number] 06:25:00 Test Item Value Reference Range Interpretation Comments Activated Clotting Time 120 sec : 74 -137 seconds, (test code = 441) Baseline: TESTED AT [address], [address]: Credit Or Loans Officer/Techni sandi ID = [id number] for Pascual Montiel [id number] 06:25:00 Test Item Value Reference Range Interpretation Comments ACTIVATED CLOTTING TIME 120 sec : 74 -137 seconds, (BEAKER) (test code = Baseli ne: TESTED AT 441) [address], 770 30: Credit Or Loans Officer/Techni sandi ID = [id number] for Evan Saleh is [id number] 06:25:00 Test Item Value Reference Range Interpretation Comments ACTIVATED CLOTTING TIME 538 sec : 74 -137 seconds, (BEAKER) (test code = Baseli ne: TESTED AT 441) [address], [facility] 30: Credit Or Loans Officer/Techni sandi ID = [id number] for Evan Saleh is [id number] 06:25:00 Test Item Value Reference Range Interpretation Comments ACTIVATED CLOTTING TIME 626 sec : 74 -137 seconds, (BEAKER) (test code = Baseli ne: TESTED AT 441) [address], [facility] 30: Credit Or Loans Officer/Techni sandi ID = [id number] for Delfino, Evan is [id number] 06:25:00 Test Item Value Reference Range Interpretation Comments ACTIVATED CLOTTING TIME 725 sec : 74 -137 seconds, (BEAKER) (test code = Baseli ne: TESTED AT 441) [address], [facility] 30: Credit Or Loans Officer/Techni sandi ID = [id number] for Evan Saleh is [id number] 06:24:00 Test Item Value Reference Range Interpretation Comments ACTIVATED CLOTTING TIME 615 sec : 74 -137 seconds, (BEAKER) (test code = Baseli ne: TESTED AT 441) [address], [facility] 30: Credit Or Loans Officer/Techni sandi ID = [id number] for Delfino, Evan is [id number] 06:24:00 Test Item Value Reference Range Interpretation Comments ACTIVATED CLOTTING TIME 604 sec : 74 -137 seconds, (BEAKER) (test code = Baseli ne: TESTED AT 441) [facility] 6720 [facility] [place], 770 30: Credit Or Loans Officer/Techni sandi ID = [id number] for Evan Saleh is LACTIC ACID, [id number] 05:49:00 Test Item Value Reference Range Interpretation Comments LACTATE BLOOD ARTERIAL (2) 4.8 mmol/L 0.5-2.2 HH (BEAKER) (test code = 2874) Credit Or Loans Officer ID - YULIANA MPOCT-GLUCOSE [id number] 05:26:00 Test Item Value Reference Range Interpretation Comments POC-GLUCOSE METER 108 mg/dL 70-110 : TESTED A T [facility] 6720 (BEAKER) (test code = [facility], 1538) 35160: Credit Or Loans Officer/Techni sandi ID = [id number] for KALPESH FRANCES (Chata)NAYELY [id number] 05:21:00 Test Item Value Reference Range Interpretation Comments MAGNESIUM (BEAKER) (test code = 2.2 mg/dL 1.6-2.6 627) Credit Or Loans Officer ID - YULIANA [id number] 05:21:00 Test Item Value Reference Range Interpretation Comments PHOSPHORUS (BEAKER) (test code = 4.8 mg/dL 2.3-4.7 H 604) Credit Or Loans Officer ID - YULIANA MBASIC METABOLIC [id number] 05:21:00 Test Item Value Reference Range Interpretation Comments SODIUM (BEAKER) 143 meq/L 136-145 (test code = 381) POTASSIUM (BEAKER) 4.3 meq/L 3.5-5.1 (test code = 379) CHLORIDE (BEAKER) 104 meq/L 98-107 (test code = 382) CO2 (BEAKER) (test 21 meq/L 22-29 L code = 355) BLOOD UREA NITROGEN 61 mg/dL 7-21 H (BEAKER) (test code = 354) CREATININE (BEAKER) 7.59 mg/dL 0.57-1.25 H (test code = 358) GLUCOSE RANDOM 129 mg/dL 70-105 H (BEAKER) (test code = 652) CALCIUM (BEAKER) 9.4 mg/dL 8.4-10.2 (test code = 697) EGFR (BEAKER) (test 7 mL/min/1.73 ESTIMAT ED GFR IS code = 1092) sq m NOT ACCURATE CREATININE CLEARANCE IN PREDICTING GLOMERULAR FILTRATION RATE . ESTIMATED GFR I S NOT APPLICABLE FOR DIALYSIS PATIEN TS. Credit Or Loans Officer ID - YULIANA [id number] 05:09:00 Test Item Value Reference Range Interpretation Comments PARTIAL THROMBOPLASTIN TIME 82.7 seconds 22.5-36.0 H (BEAKER) (test code = 760) PROTHROMBIN [id number] 05:07:00 Test Item Value Reference Range Interpretation Comments PROTIME (BEAKER) (test code = 21.0 seconds 11.9-14.2 H 759) INR (BEAKER) (test code = 370) 1.87 <=5.90 Effective 03/11/2019: PT Reference Range ChangeNew: 11.9-14.2 Previous: 11.7- 14.7RECOMMENDED COUMADIN/WARFARIN INR THERAPY RANGESSTANDARD DOSE: 2.0-3.0 Includes: PROPHYLAXIS for venous thrombosis, systemic embolization; TREATMENT for venous thrombosis and/or pulmonary embolus.HIGH RISK: Target INR is2.5-3.5 for patients wiht mechanical heart valves.CBC (HEMOGRAM ONLY)2020-09-28 05:01:00 Test Item Value Reference Range Interpretation Comments WHITE BLOOD CELL COUNT (BEAKER) 21.5 K/ L 3.5-10.5 H (test code = 775) RED BLOOD CELL COUNT (BEAKER) 2.95 M/ L 4.63-6.08 L (test code = 761) HEMOGLOBIN (BEAKER) (test code = 8.9 GM/DL 13.7-17.5 L 410) HEMATOCRIT (BEAKER) (test code = 27.0 % 40.1-51.0 L 411) MEAN CORPUSCULAR VOLUME (BEAKER) 91.5 fL 79.0-92.2 (test code = 753) MEAN CORPUSCULAR HEMOGLOBIN 30.2 pg 25.7-32.2 (BEAKER) (test code = 751) MEAN CORPUSCULAR HEMOGLOBIN CONC 33.0 GM/DL 32.3-36.5 (BEAKER) (test code = 752) RED CELL DISTRIBUTION WIDTH 17.6 % 11.6-14.4 H (BEAKER) (test code = 412) PLATELET COUNT (BEAKER) (test 178 K/CU MM 150-450 code = 756) MEAN PLATELET VOLUME (BEAKER) 10.9 fL 9.4-12.4 (test code = 754) NUCLEATED RED BLOOD CELLS 0 /100 WBC 0-0 (BEAKER) (test code = 413) OXYGEN SATURATION, [id number] 04:47:00 Test Item Value Reference Range Interpretation Comments O2 SATURATION (MEASURED) (BEAKER) 85.2 % (test code = 1455) HGB/HCT (H&H) - STAT [id number] 04:43:00 Test Item Value Reference Range Interpretation Comments HEMOGLOBIN (BEAKER) (test code = 9.3 GM/DL 13.0-16.8 L 410) HEMATOCRIT (BEAKER) (test code = 27.0 % 40.0-50.0 L 411) BLOOD GAS, [id number] 04:42:00 Test Item Value Reference Range Interpretation Comments PH ARTERIAL (BEAKER) (test code = 7.45 7.35-7.45 383) PCO2 ARTERIAL (BEAKER) (test code 36 mm Hg 35-45 = 384) PO2 ARTERIAL (BEAKER) (test code = 153 mm Hg 80-90 H 385) O2 SATURATION ARTERIAL (BEAKER) 99.1 % 96.0-97.0 H (test code = 386) HCO3 ARTERIAL (BEAKER) (test code 25 mmol/L 21-29 = 388) BASE EXCESS ARTERIAL (BEAKER) 0.4 mmol/L -2.0-3.0 (test code = 387) PATIENT TEMPERATURE (BEAKER) (test 35.4 code = 1818) FIO2 (BEAKER) (test code = 1819) 40.0 GLUCOSE-STAT [id number] 04:42:00 Test Item Value Reference Range Interpretation Comments GLUCOSE RANDOM (BEAKER) (test code 124 mg/dL 70-110 H = 652) SODIUM NA-STAT [id number] 04:39:00 Test Item Value Reference Range Interpretation Comments SODIUM (BEAKER) (test code = 381) 141 meq/L 136-145 POTASSIUM-STAT [id number] 04:39:00 Test Item Value Reference Range Interpretation Comments POTASSIUM (BEAKER) (test code = 4.2 meq/L 3.6-5.5 379) RAD, CHEST, 1 VIEW, NON [id number] 04:22:00while patient is intubated or has chest tubes.Reason for exam:->Status post CV SurgeryShould thisbe performed at the bedside?->Yes [facility] : 1945 Sex: MFINAL REPORT RAD, CHEST, 1 VIEW, NON DEPT INDICATION: Status post CV Surgery COMPARISON: Two hours prior. FINDINGS: Portable frontal view of the chest. IMPRESSION: Support Lines: IABP marker 6 cm caudal to the aortic knob superior margin. Otherwise stable support apparatus.Lungs and pleura: Stable vascular congestion without focal lung consolidation or large effusion. No pneumothorax.Heart and mediastinum: Stable contours. Additional findings: None. Signed: Smith Corona MDReport Verified Date/Time: 09/28/2020 04:22:55 LACTIC ACID, [id number] 04:06:00 Test Item Value Reference Range Interpretation Comments LACTATE BLOOD ARTERIAL (2) 6.1 mmol/L 0.5-2.2 HH (BEAKER) (test code = 2874) Credit Or Loans Officer ID - YULIANA MBLOOD GAS, [id number] 02:49:00 Test Item Value Reference Range Interpretation Comments PH ARTERIAL (BEAKER) (test code = 7.43 7.35-7.45 383) PCO2 ARTERIAL (BEAKER) (test code 37 mm Hg 35-45 = 384) PO2 ARTERIAL (BEAKER) (test code 195 mm Hg 80-90 H = 385) O2 SATURATION ARTERIAL (BEAKER) 99.4 % 96.0-97.0 H (test code = 386) HCO3 ARTERIAL (BEAKER) (test code 24 mmol/L 21-29 = 388) BASE EXCESS ARTERIAL (BEAKER) -0.6 mmol/L -2.0-3.0 (test code = 387) PATIENT TEMPERATURE (BEAKER) 35.4 (test code = 1818) FIO2 (BEAKER) (test code = 1819) 50.0 GLUCOSE-STAT [id number] 02:49:00 Test Item Value Reference Range Interpretation Comments GLUCOSE RANDOM (BEAKER) (test code 146 mg/dL 70-110 H = 652) HGB/HCT (H&H) - STAT [id number] 02:49:00 Test Item Value Reference Range Interpretation Comments HEMOGLOBIN (BEAKER) (test code = 9.3 GM/DL 13.0-16.8 L 410) HEMATOCRIT (BEAKER) (test code = 27.0 % 40.0-50.0 L 411) SODIUM NA-STAT [id number] 02:48:00 Test Item Value Reference Range Interpretation Comments SODIUM (BEAKER) (test code = 381) 141 meq/L 136-145 POTASSIUM-STAT [id number] 02:48:00 Test Item Value Reference Range Interpretation Comments POTASSIUM (BEAKER) (test code = 4.1 meq/L 3.6-5.5 379) CALCIUM, [id number] 02:48:00 Test Item Value Reference Range Interpretation Comments CALCIUM IONIZED (BEAKER) (test 1.18 mmol/L 1.12-1.27 code = 698) PH, BLOOD (BEAKER) (test code = 7.40 2070) LACTIC ACID, [id number] 00:47:00 Test Item Value Reference Range Interpretation Comments LACTATE BLOOD ARTERIAL (2) 7.1 mmol/L 0.5-2.2 HH (BEAKER) (test code = 2874) Credit Or Loans Officer ID - BSSpecimen slightly ictericSODIUM NA-STAT [id number] 00:07:00 Test Item Value Reference Range Interpretation Comments SODIUM (BEAKER) (test code = 381) 141 meq/L 136-145 POTASSIUM-STAT [id number] 00:07:00 Test Item Value Reference Range Interpretation Comments POTASSIUM (BEAKER) (test code = 4.4 meq/L 3.6-5.5 379) BLOOD GAS, [id number] 00:07:00 Test Item Value Reference Range Interpretation Comments PH ARTERIAL (BEAKER) (test code = 7.39 7.35-7.45 383) PCO2 ARTERIAL (BEAKER) (test code 38 mm Hg 35-45 = 384) PO2 ARTERIAL (BEAKER) (test code 248 mm Hg 80-90 H = 385) O2 SATURATION ARTERIAL (BEAKER) 99.6 % 96.0-97.0 H (test code = 386) HCO3 ARTERIAL (BEAKER) (test code 23 mmol/L 21-29 = 388) BASE EXCESS ARTERIAL (BEAKER) -2.2 mmol/L -2.0-3.0 L (test code = 387) PATIENT TEMPERATURE (BEAKER) 36.2 (test code = 1818) FIO2 (BEAKER) (test code = 1819) 70.0 GLUCOSE-STAT [id number] 00:07:00 Test Item Value Reference Range Interpretation Comments GLUCOSE RANDOM (BEAKER) (test code 184 mg/dL 70-110 H = 652) HGB/HCT (H&H) - STAT [id number] 00:07:00 Test Item Value Reference Range Interpretation Comments HEMOGLOBIN (BEAKER) (test code = 9.5 GM/DL 13.0-16.8 L 410) HEMATOCRIT (BEAKER) (test code = 28.0 % 40.0-50.0 L 411) RAD, CHEST, 1 VIEW, NON [id number] 23:16:00Reason for exam:->iabp repositioningShould this be performed at the bedside?->Yes [facility] [place] : 1945 Sex: MFINAL REPORT RAD, CHEST, 1 VIEW, NON DEPT INDICATION: iabp repositi oning COMPARISON: Prior day's exam FINDINGS: Portable frontal view of the chest. IMPRESSION: Support Lines: Unchanged positioning of the enteric tube with proximal sidehole in the distal esophagus, recommend sampling. Intra-aortic balloon pump superior marker terminates 4.6 cm below the superior aspect of the aortic knob. Otherwise unchanged support apparatus. Lungs and pleura: Unchanged airspace and pleural opacities. No pneumothorax.Heart and mediastinum: Stable contours. Stable surgical changes.Additional findings: None. Signed: Humera Navas Verified Date/Time: 09/27/2020 23:16:55 Hepatitis B surface [id number] 22:40:00 Test Item Value Reference Range Interpretation Comments HBsAg Screen (test code Nonreactive Nonreactive = 5195-3) SID (test code = SID) Specimen is considered negative for HBsAg. Lab Interpretation (test Normal code = 52830-2) [facility] [id number] 22:40:00 Test Item Value Reference Range Interpretation Comments HEPATITIS B SURFACE ANTIGEN (2) Nonreactive Nonreactive (BEAKER) (test code = 2585) Specimen is considered negative for HBsAg.RAD, CHEST, 1 VIEW, NON [id number] 22:39:00Reason for exam:->Status post CV Surgery post op day 0Should this be performed at the bedside?->Yes [facility] [place]HADKODI [place] : 1945 Sex: MFINAL REPORT RAD, CHEST, 1 VIEW, NON DEPT INDICATION: Status post CV Surgery post op day 0 COMPARISON: 17 hours prior FINDINGS: Portable frontal view of the chest. IMPRESSION: Support Lines: ET tube terminates 6 cm above the zakia. Enteric tube descends into the abdomen with side-port within the distal esophagus for which advancement is recommended. Right IJ Flushing-Boris catheter tip overlies the right pulmonary artery. Mediastinal drain and left chest tube present. Lungs and pleura: Stable bilateral interstitial opacities and improved basilar atelectasis. Stable pleural contours for which a small left pleural effusion is not excluded. No pneumothorax.Heart and mediastinum: Stable contours. Additional findings: None. Signed: Smith Corona MDReport Verified Date/Time: 09/27/2020 22:39:59 THROMBOELASTOGRAPH (TEG)2020-09-27 22:33:00 Test Item Value Reference Range Interpretation Comments TEG ACTIVATED CLOTTING TIME 7.5 minutes 4.0-7.0 H (BEAKER) (test code = 1407) TEG FIBRINOGEN ACTIVITY (BEAKER) 70.2 degrees 61.0-73.0 (test code = 1408) TEG PLT. AGGREGATION (BEAKER) 76.7 MM 55.0-65.0 H (test code = 1409) TEG FIBRINOLYSIS (BEAKER) (test 0.0 % 0.0-5.0 code = 1410) TGH ACTIVATED CLOTTING TIME 9.0 minutes 4.0-7.0 H (BEAKER) (test code = 1411) TGH FIBRINOGEN ACTIVITY (BEAKER) 75.5 degrees 61.0-73.0 H (test code = 1412) TGH PLT. AGGREGATION (BEAKER) 76.0 MM 55.0-65.0 H (test code = 1413) [facility] FIBRINOLYSIS (BEAKER) (test 0.1 % 0.0-5.0 code = 1414) LACTIC ACID, [id number] 22:19:00 Test Item Value Reference Range Interpretation Comments LACTATE BLOOD ARTERIAL (2) 8.9 mmol/L 0.5-2.2 HH (BEAKER) (test code = 2874) [employer] Officer ID - BSSpecimen slightly [id number]-[id number] 22:13:00 Test Item Value Reference Range Interpretation Comments Glucose (test code = 2345-7) 233 mg/dL 70-105 H SID (test code = SID) [employer] Officer ID - BS Lab Interpretation (test Abnormal code = 12376-7) [id number] Test Item Value Reference Range Interpretation Comments POTASSIUM (BEAKER) (test code = 4.9 meq/L 3.5-5.1 379) [employer] Officer ID - [id number] 22:13:00 Test Item Value Reference Range Interpretation Comments GLUCOSE RANDOM (BEAKER) (test code 233 mg/dL 70-105 H = 652) [employer] Officer ID - BSSODIUM NA-STAT [id number] 21:58:00 Test Item Value Reference Range Interpretation Comments SODIUM (BEAKER) (test code = 381) 141 meq/L 136-145 POTASSIUM-STAT [id number] 21:58:00 Test Item Value Reference Range Interpretation Comments POTASSIUM (BEAKER) (test code = 4.7 meq/L 3.6-5.5 379) CALCIUM, [id number] 21:58:00 Test Item Value Reference Range Interpretation Comments CALCIUM IONIZED (BEAKER) (test 1.14 mmol/L 1.12-1.27 code = 698) PH, BLOOD (BEAKER) (test code = 7.30 1810) BLOOD GAS, [id number] 21:58:00 Test Item Value Reference Range Interpretation Comments PH ARTERIAL (BEAKER) (test code = 7.30 7.35-7.45 L 383) PCO2 ARTERIAL (BEAKER) (test code 39 mm Hg 35-45 = 384) PO2 ARTERIAL (BEAKER) (test code 201 mm Hg 80-90 H = 385) O2 SATURATION ARTERIAL (BEAKER) 99.3 % 96.0-97.0 H (test code = 386) HCO3 ARTERIAL (BEAKER) (test code 19 mmol/L 21-29 L = 388) BASE EXCESS ARTERIAL (BEAKER) -7.3 mmol/L -2.0-3.0 L (test code = 387) PATIENT TEMPERATURE (BEAKER) 36.1 (test code = 1818) FIO2 (BEAKER) (test code = 1819) 70.0 GLUCOSE-STAT [id number] 21:58:00 Test Item Value Reference Range Interpretation Comments GLUCOSE RANDOM (BEAKER) (test code 218 mg/dL 70-110 H = 652) HGB/HCT (H&H) - STAT [id number] 21:58:00 Test Item Value Reference Range Interpretation Comments HEMOGLOBIN (BEAKER) (test code = 9.4 GM/DL 13.0-16.8 L 410) HEMATOCRIT (BEAKER) (test code = 28.0 % 40.0-50.0 L 411) Manual [id number] 21:02:00 Test Item Value Reference Range Interpretation Comments % Neutros (test code = 83 % 2816) % Lymphs (test code = 4 % 2817) % Monos (test code = 4 % 2818) % Eos (test code = 2819) 3 % % Bands (test code = 6 % 0-10 2826) # Neutros (test code = 21.17 K/ul 1.78-5.38 H 2830) # Lymphs (test code = 1.02 K/ul 1.32-3.57 L 2831) # Monos (test code = 1.02 K/uL 0.3-0.82 H 2832) # Eos (test code = 2834) 0.77 K/uL 0.04-0.54 H # Bands (test code = 1.53 K/uL 0-0.8 H 2840) Total Counted (test code 100 = 1351) Platelet Morphology (test Normal code = 486) Smudge Cells (test code = Present 1371) Anisocytosis (test code = 1+ few 961) Poikilocytes (test code = 2+ moderate 966) Ovalocytes (test code = 1+ few 477) [place] Cells (test code = 1+ few 474) Platelet Conc (test code Adequate = 3438) SID (test code = SID) [employer] Lo[employer] Officer ID - ofelia Kemp comments: Slide comments: Lab Interpretation (test Abnormal code = 16094-2) [facility](CELLAVISION MANUAL DIFF)2020-09-27 21:02:00 Test Item Value Reference Range Interpretation Comments NEUTROPHILS - REL 83 % (CELLAVISION)(BEAKER) (test code = 2816) LYMPHOCYTES - REL 4 % (CELLAVISION)(BEAKER) (test code = 2817) MONOCYTES - REL 4 % (CELLAVISION)(BEAKER) (test code = 2818) EOSINOPHILS - REL 3 % (CELLAVISION)(BEAKER) (test code = 2819) BANDS - REL (CELLAVISION)(BEAKER) 6 % 0-10 (test code = 2826) NEUTROPHILS - ABS 21.17 K/ul 1.78-5.38 H (CELLAVISION)(BEAKER) (test code = 2830) LYMPHOCYTES - ABS 1.02 K/ul 1.32-3.57 L (CELLAVISION)(BEAKER) (test code = 2831) MONOCYTES - ABS 1.02 K/uL 0.30-0.82 H (CELLAVISION)(BEAKER) (test code = 2832) EOSINOPHILS - ABS 0.77 K/uL 0.04-0.54 H (CELLAVISION)(BEAKER) (test code = 2834) BANDS - ABS (CELLAVISION)(BEAKER) 1.53 K/uL 0.00-0.80 H (test code = 2840) TOTAL COUNTED (BEAKER) (test code 100 = 1351) PLT MORPHOLOGY (BEAKER) (test Normal code = 486) SMUDGE CELLS (BEAKER) (test code Present = 1371) ANISOCYTOSIS (BEAKER) (test code 1+ few = 961) POIKILOCYTES (BEAKER) (test code 2+ moderate = 966) OVALOCYTES (BEAKER) (test code = 1+ few 477) TERRA CELLS (BEAKER) (test code = 1+ few 474) PLATELET CONCENTRATION Adequate (CELLAVISION)(BEAKER) (test code = 3438) [employer] Lo[employer] Officer ID - ofelia Kemp comments: Slide comments:Troponin [id number] 20:47:00 Test Item Value Reference Range Interpretation Comments Troponin I (test code = 11.20 ng/mL 0-0.03 17419-6) SID (test code = SID) Troponin I (TnI) levels must be interpreted in the context of the presenting symptoms and the clinical findings. Elevated TnI levels indicate myocardial damage, but are not specific for ischemic heart disease. Elevated TnI levels are seen in patients with other cardiac conditions (including myocarditis and congestive heart failure), and slight TnI elevations occur in patients with other conditions, including sepsis, renal failure, acidosis, acute neurological disease, and persistent tachyarrhythmia.Opera tor ID - BS Lab Interpretation (test Abnormal code = 87555-1) [id number] Test Item Value Reference Range Interpretation Comments TROPONIN I (BEAKER) (test code = 11.20 ng/mL 0.00-0.03 HH 397) Troponin I (TnI) levels must be interpreted in the context of the presenting symptoms and the clinical findings. Elevated TnI levels indicate myocardial damage, but are not specific for ischemic heart disease. Elevated TnI levels are seen in patients with other cardiac conditions (including myocarditis and congestive heart failure), and slight TnI elevations occur in patients with other conditions, including sepsis, renal failure, acidosis, acute neurological disease, and persistent tachyarrhythmia.[employer] Lo[employer] Officer ID - BSLACTIC ACID, ARTERIAL 2020-09-27 20:38:00 Test Item Value Reference Range Interpretation Comments LACTATE BLOOD ARTERIAL (2) 7.6 mmol/L 0.5-2.2 HH (BEAKER) (test code = 2874) [employer] Lo[employer] Officer ID - BSCBC W/PLT COUNT & AUTO [id number] 20:38:00 Test Item Value Reference Range Interpretation Comments WHITE BLOOD CELL COUNT (BEAKER) 25.5 K/ L 3.5-10.5 H (test code = 775) RED BLOOD CELL COUNT (BEAKER) 2.98 M/ L 4.63-6.08 L (test code = 761) HEMOGLOBIN (BEAKER) (test code = 9.1 GM/DL 13.7-17.5 L 410) HEMATOCRIT (BEAKER) (test code = 28.3 % 40.1-51.0 L 411) MEAN CORPUSCULAR VOLUME (BEAKER) 95.0 fL 79.0-92.2 H (test code = 753) MEAN CORPUSCULAR HEMOGLOBIN 30.5 pg 25.7-32.2 (BEAKER) (test code = 751) MEAN CORPUSCULAR HEMOGLOBIN CONC 32.2 GM/DL 32.3-36.5 L (BEAKER) (test code = 752) RED CELL DISTRIBUTION WIDTH 16.7 % 11.6-14.4 H (BEAKER) (test code = 412) PLATELET COUNT (BEAKER) (test 204 K/CU MM 150-450 code = 756) MEAN PLATELET VOLUME (BEAKER) 10.2 fL 9.4-12.4 (test code = 754) NUCLEATED RED BLOOD CELLS 0 /100 WBC 0-0 (BEAKER) (test code = 413) BASIC METABOLIC [id number] 20:38:00 Test Item Value Reference Range Interpretation Comments SODIUM (BEAKER) 141 meq/L 136-145 (test code = 381) POTASSIUM (BEAKER) 4.8 meq/L 3.5-5.1 (test code = 379) CHLORIDE (BEAKER) 102 meq/L 98-107 (test code = 382) CO2 (BEAKER) (test 16 meq/L 22-29 L code = 355) BLOOD UREA NITROGEN 82 mg/dL 7-21 H (BEAKER) (test code = 354) CREATININE (BEAKER) 10.13 mg/dL 0.57-1.25 H (test code = 358) GLUCOSE RANDOM 212 mg/dL 70-105 H (BEAKER) (test code = 652) CALCIUM (BEAKER) 9.8 mg/dL 8.4-10.2 (test code = 697) EGFR (BEAKER) (test 5 mL/min/1.73 ESTIMAT ED GFR IS code = 1092) sq m NOT ACCURATE CREATININE CLEARANCE IN PREDICTING GLOMERULAR FILTRATION RATE . ESTIMATED GFR I S NOT APPLICABLE FOR DIALYSIS PATIEN TS. [employer] Officer ID - [id number] 20:36:00 Test Item Value Reference Range Interpretation Comments MAGNESIUM (BEAKER) (test code = 2.6 mg/dL 1.6-2.6 627) [employer] Lo[employer] Officer ID - [id number] 20:36:00 Test Item Value Reference Range Interpretation Comments PHOSPHORUS (BEAKER) (test code = 8.7 mg/dL 2.3-4.7 H 604) [employer] Lo[employer] Officer ID - [id number] 20:25:00 Test Item Value Reference Range Interpretation Comments PARTIAL THROMBOPLASTIN TIME 75.2 seconds 22.5-36.0 H (BEAKER) (test code = 760) PROTHROMBIN [id number] 20:24:00 Test Item Value Reference Range Interpretation Comments PROTIME (BEAKER) (test code = 20.6 seconds 11.9-14.2 H 759) INR (BEAKER) (test code = 370) 1.84 <=5.90 Effective 03/11/2019: PT Reference Range ChangeNew: 11.9-14.2 Previous: 11.7- 14.7RECOMMENDED COUMADIN/WARFARIN INR THERAPY RANGESSTANDARD DOSE: 2.0-3.0 Includes: PROPHYLAXIS for venous thrombosis, systemic embolization; TREATMENT for venous thrombosis and/or pulmonary embolus.HIGH RISK: Target INR is2.5-3.5 for patients wiht mechanical heart valves.[id number] 20:24:00 Test Item Value Reference Range Interpretation Comments FIBRINOGEN LEVEL (BEAKER) (test 530 mg/dl 225-434 H code = 658) CBC W/PLT COUNT & AUTO [id number] 20:08:00 Test Item Value Reference Range Interpretation Comments WHITE BLOOD CELL COUNT (BEAKER) 28.6 K/ L 3.5-10.5 H (test code = 775) RED BLOOD CELL COUNT (BEAKER) 2.36 M/ L 4.63-6.08 L (test code = 761) HEMOGLOBIN (BEAKER) (test code = 7.3 GM/DL 13.7-17.5 L 410) HEMATOCRIT (BEAKER) (test code = 22.9 % 40.1-51.0 L 411) MEAN CORPUSCULAR VOLUME (BEAKER) 97.0 fL 79.0-92.2 H (test code = 753) MEAN CORPUSCULAR HEMOGLOBIN 30.9 pg 25.7-32.2 (BEAKER) (test code = 751) MEAN CORPUSCULAR HEMOGLOBIN CONC 31.9 GM/DL 32.3-36.5 L (BEAKER) (test code = 752) RED CELL DISTRIBUTION WIDTH 16.3 % 11.6-14.4 H (BEAKER) (test code = 412) PLATELET COUNT (BEAKER) (test 127 K/CU MM 150-450 L code = 756) MEAN PLATELET VOLUME (BEAKER) 10.6 fL 9.4-12.4 (test code = 754) NUCLEATED RED BLOOD CELLS 0 /100 WBC 0-0 (BEAKER) (test code = 413) NEUTROPHILS RELATIVE PERCENT 88 % (BEAKER) (test code = 429) LYMPHOCYTES RELATIVE PERCENT 6 % (BEAKER) (test code = 430) MONOCYTES RELATIVE PERCENT 4 % (BEAKER) (test code = 431) EOSINOPHILS RELATIVE PERCENT 1 % (BEAKER) (test code = 432) BASOPHILS RELATIVE PERCENT 0 % (BEAKER) (test code = 437) NEUTROPHILS ABSOLUTE COUNT 25.20 K/ L 1.78-5.38 H (BEAKER) (test code = 670) LYMPHOCYTES ABSOLUTE COUNT 1.66 K/ L 1.32-3.57 (BEAKER) (test code = 414) MONOCYTES ABSOLUTE COUNT (BEAKER) 1.06 K/ L 0.30-0.82 H (test code = 415) EOSINOPHILS ABSOLUTE COUNT 0.27 K/ L 0.04-0.54 (BEAKER) (test code = 416) BASOPHILS ABSOLUTE COUNT (BEAKER) 0.07 K/ L 0.01-0.08 (test code = 417) IMMATURE GRANULOCYTES-RELATIVE 1 % 0-1 PERCENT (BEAKER) (test code = 2801) BLOOD GAS, [id number] 19:58:00 Test Item Value Reference Range Interpretation Comments PH ARTERIAL (BEAKER) (test code = 7.29 7.35-7.45 L 383) PCO2 ARTERIAL (BEAKER) (test code 41 mm Hg 35-45 = 384) PO2 ARTERIAL (BEAKER) (test code 242 mm Hg 80-90 H = 385) O2 SATURATION ARTERIAL (BEAKER) 99.5 % 96.0-97.0 H (test code = 386) HCO3 ARTERIAL (BEAKER) (test code 20 mmol/L 21-29 L = 388) BASE EXCESS ARTERIAL (BEAKER) -6.8 mmol/L -2.0-3.0 L (test code = 387) PATIENT TEMPERATURE (BEAKER) 35.2 (test code = 1818) FIO2 (BEAKER) (test code = 1819) 70.0 OXYGEN SATURATION, [id number] 19:57:00 Test Item Value Reference Range Interpretation Comments O2 SATURATION (MEASURED) (BEAKER) 87.8 % (test code = 1455) BLOOD GAS, [id number] 19:00:00 Test Item Value Reference Range Interpretation Comments PH ARTERIAL (BEAKER) (test code = 7.30 7.35-7.45 L 383) PCO2 ARTERIAL (BEAKER) (test code 40 mm Hg 35-45 = 384) PO2 ARTERIAL (BEAKER) (test code 378 mm Hg 80-90 H = 385) O2 SATURATION ARTERIAL (BEAKER) 99.8 % 96.0-97.0 H (test code = 386) HCO3 ARTERIAL (BEAKER) (test code 20 mmol/L 21-29 L = 388) BASE EXCESS ARTERIAL (BEAKER) -6.5 mmol/L -2.0-3.0 L (test code = 387) PATIENT TEMPERATURE (BEAKER) 35.1 (test code = 1818) FIO2 (BEAKER) (test code = 1819) 100.0 GLUCOSE-STAT [id number] 19:00:00 Test Item Value Reference Range Interpretation Comments GLUCOSE RANDOM (BEAKER) (test code 208 mg/dL 70-110 H = 652) HGB/HCT (H&H) - STAT [id number] 19:00:00 Test Item Value Reference Range Interpretation Comments HEMOGLOBIN (BEAKER) (test code = 9.5 GM/DL 13.0-16.8 L 410) HEMATOCRIT (BEAKER) (test code = 28.0 % 40.0-50.0 L 411) CALCIUM, [id number] 19:00:00 Test Item Value Reference Range Interpretation Comments CALCIUM IONIZED (BEAKER) (test 1.11 mmol/L 1.12-1.27 L code = 698) PH, BLOOD (BEAKER) (test code = 7.28 1810) SODIUM NA-STAT [id number] 18:59:00 Test Item Value Reference Range Interpretation Comments SODIUM (BEAKER) (test code = 381) 139 meq/L 136-145 POTASSIUM-STAT [id number] 18:59:00 Test Item Value Reference Range Interpretation Comments POTASSIUM (BEAKER) (test code = 4.6 meq/L 3.6-5.5 379) [id number] 18:22:00 Test Item Value Reference Range Interpretation Comments PARTIAL THROMBOPLASTIN TIME 88.5 seconds 22.5-36.0 H (BEAKER) (test code = 760) [id number] 18:21:00 Test Item Value Reference Range Interpretation Comments FIBRINOGEN LEVEL (BEAKER) (test 444 mg/dl 225-434 H code = 658) PROTHROMBIN [id number] 18:20:00 Test Item Value Reference Range Interpretation Comments PROTIME (BEAKER) (test code = 24.6 seconds 11.9-14.2 H 759) INR (BEAKER) (test code = 370) 2.31 <=5.90 Effective 03/11/2019: PT Reference Range ChangeNew: 11.9-14.2 Previous: 11.7- 14.7RECOMMENDED COUMADIN/WARFARIN INR THERAPY RANGESSTANDARD DOSE: 2.0-3.0 Includes: PROPHYLAXIS for venous thrombosis, systemic embolization; TREATMENT for venous thrombosis and/or pulmonary embolus.HIGH RISK: Target INR is2.5-3.5 for patients wiht mechanical heart valves.PLATELET [id number] 18:13:00 Test Item Value Reference Range Interpretation Comments PLATELET COUNT (BEAKER) (test 127 K/CU MM 150-450 L code = 756) [employer] Lo[employer] Officer ID - [id number] 18:10:14Mehul Otero MD 09/27/2020 6:52 PMTEE Pre Intervention Summary: Post Intervention Summary: S/P ACB x4 Preserved LV and RV function.No changes in TV and MV function. 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 No change in perivalvular AI as compaired to preop cardiology examNo evidence of aortic dissection. No pericardial effusion.[facility] [id number] 18:07:00 Test Item Value Reference Range Interpretation Comments CALCIUM IONIZED (BEAKER) (test 1.15 mmol/L 1.12-1.27 code = 698) PH, BLOOD (BEAKER) (test code = 7.32 1810) BLOOD GAS, [id number] 18:07:00 Test Item Value Reference Range Interpretation Comments PH ARTERIAL (BEAKER) (test code = 7.32 7.35-7.45 L 383) PCO2 ARTERIAL (BEAKER) (test code 40 mm Hg 35-45 = 384) PO2 ARTERIAL (BEAKER) (test code 363 mm Hg 80-90 H = 385) O2 SATURATION ARTERIAL (BEAKER) 99.7 % 96.0-97.0 H (test code = 386) HCO3 ARTERIAL (BEAKER) (test code 21 mmol/L 21-29 = 388) BASE EXCESS ARTERIAL (BEAKER) -5.3 mmol/L -2.0-3.0 L (test code = 387) PATIENT TEMPERATURE (BEAKER) 35.4 (test code = 1818) FIO2 (BEAKER) (test code = 1819) 94.0 GLUCOSE-STAT [id number] 18:07:00 Test Item Value Reference Range Interpretation Comments GLUCOSE RANDOM (BEAKER) (test code 199 mg/dL 70-110 H = 652) HGB/HCT (H&H) - STAT [id number] 18:07:00 Test Item Value Reference Range Interpretation Comments HEMOGLOBIN (BEAKER) (test code = 7.5 GM/DL 13.0-16.8 L 410) HEMATOCRIT (BEAKER) (test code = 22.0 % 40.0-50.0 L 411) SODIUM NA-STAT [id number] 18:06:00 Test Item Value Reference Range Interpretation Comments SODIUM (BEAKER) (test code = 381) 138 meq/L 136-145 POTASSIUM-STAT [id number] 18:06:00 Test Item Value Reference Range Interpretation Comments POTASSIUM (BEAKER) (test code = 4.8 meq/L 3.6-5.5 379) CALCIUM, [id number] 17:45:00 Test Item Value Reference Range Interpretation Comments CALCIUM IONIZED (BEAKER) (test 1.11 mmol/L 1.12-1.27 L code = 698) PH, BLOOD (BEAKER) (test code = 7.32 1810) BLOOD GAS, [id number] 17:45:00 Test Item Value Reference Range Interpretation Comments PH ARTERIAL (BEAKER) (test code = 7.32 7.35-7.45 L 383) PCO2 ARTERIAL (BEAKER) (test code 40 mm Hg 35-45 = 384) PO2 ARTERIAL (BEAKER) (test code 296 mm Hg 80-90 H = 385) O2 SATURATION ARTERIAL (BEAKER) 99.6 % 96.0-97.0 H (test code = 386) HCO3 ARTERIAL (BEAKER) (test code 20 mmol/L 21-29 L = 388) BASE EXCESS ARTERIAL (BEAKER) -5.6 mmol/L -2.0-3.0 L (test code = 387) PATIENT TEMPERATURE (BEAKER) 36.1 (test code = 1818) FIO2 (BEAKER) (test code = 1819) 94.0 GLUCOSE-STAT [id number] 17:45:00 Test Item Value Reference Range Interpretation Comments GLUCOSE RANDOM (BEAKER) (test code 206 mg/dL 70-110 H = 652) HGB/HCT (H&H) - STAT [id number] 17:45:00 Test Item Value Reference Range Interpretation Comments HEMOGLOBIN (BEAKER) (test code = 8.1 GM/DL 13.0-16.8 L 410) HEMATOCRIT (BEAKER) (test code = 24.0 % 40.0-50.0 L 411) SODIUM NA-STAT [id number] 17:44:00 Test Item Value Reference Range Interpretation Comments SODIUM (BEAKER) (test code = 381) 137 meq/L 136-145 POTASSIUM-STAT [id number] 17:44:00 Test Item Value Reference Range Interpretation Comments POTASSIUM (BEAKER) (test code = 5.3 meq/L 3.6-5.5 379) BLOOD GAS, [id number] 16:56:00 Test Item Value Reference Range Interpretation Comments PH ARTERIAL (BEAKER) (test code = 7.34 7.35-7.45 L 383) PCO2 ARTERIAL (BEAKER) (test code 38 mm Hg 35-45 = 384) PO2 ARTERIAL (BEAKER) (test code 274 mm Hg 80-90 H = 385) O2 SATURATION ARTERIAL (BEAKER) 99.6 % 96.0-97.0 H (test code = 386) HCO3 ARTERIAL (BEAKER) (test code 20 mmol/L 21-29 L = 388) BASE EXCESS ARTERIAL (BEAKER) -5.5 mmol/L -2.0-3.0 L (test code = 387) PATIENT TEMPERATURE (BEAKER) 35.2 (test code = 1818) FIO2 (BEAKER) (test code = 1819) 70.0 GLUCOSE-STAT [id number] 16:56:00 Test Item Value Reference Range Interpretation Comments GLUCOSE RANDOM (BEAKER) (test code 190 mg/dL 70-110 H = 652) HGB/HCT (H&H) - STAT [id number] 16:56:00 Test Item Value Reference Range Interpretation Comments HEMOGLOBIN (BEAKER) (test code = 8.9 GM/DL 13.0-16.8 L 410) HEMATOCRIT (BEAKER) (test code = 26.0 % 40.0-50.0 L 411) POTASSIUM-STAT [id number] 16:56:00 Test Item Value Reference Range Interpretation Comments POTASSIUM (BEAKER) (test code = 6.3 meq/L 3.6-5.5 HH 379) SODIUM NA-STAT [id number] 16:55:00 Test Item Value Reference Range Interpretation Comments SODIUM (BEAKER) (test code = 381) 135 meq/L 136-145 L BLOOD GAS, [id number] 16:20:00 Test Item Value Reference Range Interpretation Comments PH ARTERIAL (BEAKER) (test code = 7.44 7.35-7.45 383) PCO2 ARTERIAL (BEAKER) (test code 35 mm Hg 35-45 = 384) PO2 ARTERIAL (BEAKER) (test code 328 mm Hg 80-90 H = 385) O2 SATURATION ARTERIAL (BEAKER) 99.8 % 96.0-97.0 H (test code = 386) HCO3 ARTERIAL (BEAKER) (test code 25 mmol/L 21-29 = 388) BASE EXCESS ARTERIAL (BEAKER) -1.1 mmol/L -2.0-3.0 (test code = 387) PATIENT TEMPERATURE (BEAKER) 28.1 (test code = 1818) FIO2 (BEAKER) (test code = 1819) 60.0 SODIUM NA-STAT [id number] 16:20:00 Test Item Value Reference Range Interpretation Comments SODIUM (BEAKER) (test code = 381) 134 meq/L 136-145 L POTASSIUM-STAT [id number] 16:20:00 Test Item Value Reference Range Interpretation Comments POTASSIUM (BEAKER) (test code = 6.4 meq/L 3.6-5.5 HH 379) GLUCOSE-STAT [id number] 16:20:00 Test Item Value Reference Range Interpretation Comments GLUCOSE RANDOM (BEAKER) (test code 206 mg/dL 70-110 H = 652) HGB/HCT (H&H) - STAT [id number] 16:20:00 Test Item Value Reference Range Interpretation Comments HEMOGLOBIN (BEAKER) (test code = 8.1 GM/DL 13.0-16.8 L 410) HEMATOCRIT (BEAKER) (test code = 24.0 % 40.0-50.0 L 411) BLOOD GAS, [id number] 15:49:00 Test Item Value Reference Range Interpretation Comments PH ARTERIAL (BEAKER) (test code = 7.35 7.35-7.45 383) PCO2 ARTERIAL (BEAKER) (test code 39 mm Hg 35-45 = 384) PO2 ARTERIAL (BEAKER) (test code 288 mm Hg 80-90 H = 385) O2 SATURATION ARTERIAL (BEAKER) 99.6 % 96.0-97.0 H (test code = 386) HCO3 ARTERIAL (BEAKER) (test code 23 mmol/L 21-29 = 388) BASE EXCESS ARTERIAL (BEAKER) -4.5 mmol/L -2.0-3.0 L (test code = 387) PATIENT TEMPERATURE (BEAKER) 30.0 (test code = 1818) FIO2 (BEAKER) (test code = 1819) 60.0 SODIUM NA-STAT [id number] 15:49:00 Test Item Value Reference Range Interpretation Comments SODIUM (BEAKER) (test code = 381) 134 meq/L 136-145 L POTASSIUM-STAT [id number] 15:49:00 Test Item Value Reference Range Interpretation Comments POTASSIUM (BEAKER) (test code = 7.1 meq/L 3.6-5.5 HH 379) GLUCOSE-STAT [id number] 15:49:00 Test Item Value Reference Range Interpretation Comments GLUCOSE RANDOM (BEAKER) (test code 207 mg/dL 70-110 H = 652) HGB/HCT (H&H) - STAT [id number] 15:49:00 Test Item Value Reference Range Interpretation Comments HEMOGLOBIN (BEAKER) (test code = 9.0 GM/DL 13.0-16.8 L 410) HEMATOCRIT (BEAKER) (test code = 26.0 % 40.0-50.0 L 411) BLOOD GAS, [id number] 15:20:00 Test Item Value Reference Range Interpretation Comments PH ARTERIAL (BEAKER) (test code = 7.35 7.35-7.45 383) PCO2 ARTERIAL (BEAKER) (test code 36 mm Hg 35-45 = 384) PO2 ARTERIAL (BEAKER) (test code 364 mm Hg 80-90 H = 385) O2 SATURATION ARTERIAL (BEAKER) 99.8 % 96.0-97.0 H (test code = 386) HCO3 ARTERIAL (BEAKER) (test code 20 mmol/L 21-29 L = 388) BASE EXCESS ARTERIAL (BEAKER) -5.7 mmol/L -2.0-3.0 L (test code = 387) PATIENT TEMPERATURE (BEAKER) 35.2 (test code = 1818) FIO2 (BEAKER) (test code = 1819) 80.0 SODIUM NA-STAT [id number] 15:20:00 Test Item Value Reference Range Interpretation Comments SODIUM (BEAKER) (test code = 381) 134 meq/L 136-145 L POTASSIUM-STAT [id number] 15:20:00 Test Item Value Reference Range Interpretation Comments POTASSIUM (BEAKER) (test code = 6.1 meq/L 3.6-5.5 HH 379) GLUCOSE-STAT [id number] 15:20:00 Test Item Value Reference Range Interpretation Comments GLUCOSE RANDOM (BEAKER) (test code 140 mg/dL 70-110 H = 652) HGB/HCT (H&H) - STAT [id number] 15:20:00 Test Item Value Reference Range Interpretation Comments HEMOGLOBIN (BEAKER) (test code = 8.8 GM/DL 13.0-16.8 L 410) HEMATOCRIT (BEAKER) (test code = 26.0 % 40.0-50.0 L 411) BLOOD GAS, [id number] 14:48:00 Test Item Value Reference Range Interpretation Comments PH ARTERIAL (BEAKER) (test code = 7.35 7.35-7.45 383) PCO2 ARTERIAL (BEAKER) (test code 33 mm Hg 35-45 L = 384) PO2 ARTERIAL (BEAKER) (test code 310 mm Hg 80-90 H = 385) O2 SATURATION ARTERIAL (BEAKER) 99.7 % 96.0-97.0 H (test code = 386) HCO3 ARTERIAL (BEAKER) (test code 18 mmol/L 21-29 L = 388) BASE EXCESS ARTERIAL (BEAKER) -7.2 mmol/L -2.0-3.0 L (test code = 387) PATIENT TEMPERATURE (BEAKER) 35.1 (test code = 1818) FIO2 (BEAKER) (test code = 1819) 94.0 SODIUM NA-STAT [id number] 14:48:00 Test Item Value Reference Range Interpretation Comments SODIUM (BEAKER) (test code = 381) 133 meq/L 136-145 L GLUCOSE-STAT [id number] 14:48:00 Test Item Value Reference Range Interpretation Comments GLUCOSE RANDOM (BEAKER) (test code 117 mg/dL 70-110 H = 652) HGB/HCT (H&H) - STAT [id number] 14:48:00 Test Item Value Reference Range Interpretation Comments HEMOGLOBIN (BEAKER) (test code = 9.7 GM/DL 13.0-16.8 L 410) HEMATOCRIT (BEAKER) (test code = 29.0 % 40.0-50.0 L 411) POTASSIUM-STAT [id number] 14:48:00 Test Item Value Reference Range Interpretation Comments POTASSIUM (BEAKER) (test code = 6.0 meq/L 3.6-5.5 HH 379) CALCIUM, [id number] 14:44:00 Test Item Value Reference Range Interpretation Comments CALCIUM IONIZED (BEAKER) (test 1.10 mmol/L 1.12-1.27 L code = 698) PH, BLOOD (BEAKER) (test code = 7.32 1810) CALCIUM, [id number] 13:43:00 Test Item Value Reference Range Interpretation Comments CALCIUM IONIZED (BEAKER) (test 1.14 mmol/L 1.12-1.27 code = 698) PH, BLOOD (BEAKER) (test code = 7.33 1810) GLUCOSE-STAT [id number] 13:42:00 Test Item Value Reference Range Interpretation Comments GLUCOSE RANDOM (BEAKER) (test code 100 mg/dL 70-110 = 652) BLOOD GAS, [id number] 13:42:00 Test Item Value Reference Range Interpretation Comments PH ARTERIAL (BEAKER) (test code = 7.35 7.35-7.45 383) PCO2 ARTERIAL (BEAKER) (test code 35 mm Hg 35-45 = 384) PO2 ARTERIAL (BEAKER) (test code 229 mm Hg 80-90 H = 385) O2 SATURATION ARTERIAL (BEAKER) 99.5 % 96.0-97.0 H (test code = 386) HCO3 ARTERIAL (BEAKER) (test code 19 mmol/L 21-29 L = 388) BASE EXCESS ARTERIAL (BEAKER) -6.3 mmol/L -2.0-3.0 L (test code = 387) PATIENT TEMPERATURE (BEAKER) 35.5 (test code = 1818) FIO2 (BEAKER) (test code = 1819) 96.0 HGB/HCT (H&H) - STAT [id number] 13:42:00 Test Item Value Reference Range Interpretation Comments HEMOGLOBIN (BEAKER) (test code = 9.3 GM/DL 13.0-16.8 L 410) HEMATOCRIT (BEAKER) (test code = 27.0 % 40.0-50.0 L 411) SODIUM NA-STAT [id number] 13:42:00 Test Item Value Reference Range Interpretation Comments SODIUM (BEAKER) (test code = 381) 133 meq/L 136-145 L POTASSIUM-STAT [id number] 13:42:00 Test Item Value Reference Range Interpretation Comments POTASSIUM (BEAKER) (test code = 5.6 meq/L 3.6-5.5 H 379) Hemoglobin [id number] 13:02:00 Test Item Value Reference Range Interpretation Comments Hemoglobin A1C (test code = 4548-4) 6.1 % 4.3-6.1 Lab Interpretation (test code = Normal 96256-7) [facility]MOGLOBIN [id number] 13:02:00 Test Item Value Reference Range Interpretation Comments HEMOGLOBIN A1C (BEAKER) (test code = 6.1 % 4.3-6.1 368) Type and screen, geemqjgtd0558-39-09 12:47:00 Test Item Value Reference Range Interpretation Comments ABO/RH AUTOMATED (BEAKER) (test A POSITIVE code = 2260) Ab Scrn (test code = 890-4) NEGATIVE [facility]TROPON[facility] [id number] 12:37:00 Test Item Value Reference Range Interpretation Comments TROPONIN I (BEAKER) (test code = 7.22 ng/mL 0.00-0.03 HH 397) Troponin I (TnI) levels must be interpreted in the context of the presenting symptoms and the clinical findings. Elevated TnI levels indicate myocardial damage, but are not specific for ischemic heart disease. Elevated TnI levels are seen in patients with other cardiac conditions (including myocarditis and congestive heart failure), and slight TnI elevations occur in patients with other conditions, including sepsis, renal failure, acidosis, acute neurological disease, and persistent tachyarrhythmia.[employer] Officer DOROTA FINCH, manual 2020-09-27 12:32:00 Test Item Value Reference Range Interpretation Comments ABO Grouping (test code = 2588) A Rh Factor (test code = 2589) POS [facility]APTT[facility] 12:32:00 Test Item Value Reference Range Interpretation Comments PARTIAL THROMBOPLASTIN TIME 87.4 seconds 22.5-36.0 H (BEAKER) (test code = 760) Lipid [id number] 12:26:00 Test Item Value Reference Range Interpretation Comments Triglycerides (test 120 mg/dL code = 2571-8) Cholesterol (test code 106 mg/dL = 2093-3) HDL (test code = 24 mg/dL 5-9) LDL Calculated (test 58 mg/dL code = 55141-1) SID (test code = SID) Triglyceride Reference Range: Low Risk <150 Borderline 150-199 High Risk 200-499 Very High Risk >=500 Cholesterol Reference Range: Low Risk <200 Borderline 200-239 High Risk >240 HDL Cholesterol Reference Range: Low Risk >=60 High Risk <40 LDL Cholesterol Reference Range: Optimal <100 Near Optimal 100-129 Borderline 130-159 High 160-189 Very High >=190 [employer] Officer DOROTA [place] [facility] HospitalLIPID [id number] 12:26:00 Test Item Value Reference Range Interpretation Comments TRIGLYCERIDES (BEAKER) (test code = 120 mg/dL 540) CHOLESTEROL (BEAKER) (test code = 106 mg/dL 631) HDL CHOLESTEROL (BEAKER) (test code 24 mg/dL = 976) LDL CHOLESTEROL CALCULATED (BEAKER) 58 mg/dL (test code = 633) Triglyceride Reference Range: Low Risk <150 Borderline 150-199 High Risk 200-499 Very High Risk >=500Cholesterol Reference Range: Low Risk <200 Borderline 200-239 High Risk >240HDL Cholesterol Reference Range: Low Risk >=60 High Risk <40LDL Cholesterol Reference Range: Optimal <100 Near Optimal 100-129 Borderline 130-159 High 160-189 Very High >=190 [employer] Officer ID - EVELIA FPOCT-GLUCOSE [id number] 11:12:00 Test Item Value Reference Range Interpretation Comments POC-GLUCOSE METER 106 mg/dL 70-110 : TESTED A T [facility] 6720 (BEAKER) (test code = [facility], 1538) [address]: Credit Or Loans Officer/Techni sandi ID = [id number] for RENAE ROBERTO B-type Natriuretic Factor (BNP)2020-09-27 09:54:00 Test Item Value Reference Range Interpretation Comments BNP (test code = 55992-3) 4553 pg/mL 0-100 H SID (test code = SID) [employer] Officer ID - [id number] Lab Interpretation (test Abnormal code = 98232-1) [facility] NATRIURE[facility] FACTOR (BNP)2020-09-27 09:54:00 Test Item Value Reference Range Interpretation Comments B-TYPE NATRIURETIC PEPTIDE 4553 pg/mL 0-100 H (BEAKER) (test code = 700) [employer] Officer ID - [id number] [id number] 08:28:00 Test Item Value Reference Range Interpretation Comments POC-GLUCOSE METER 113 mg/dL 70-110 H : TESTED A T [facility] 6720 (BEAKER) (test code = [facility], 1538) [address]86[address]: [employer] Lo[employer] Officer/Techni sandi ID = [id number] for NORA FARRELL [id number] 06:53:00 Test Item Value Reference Range Interpretation Comments PHOSPHORUS (BEAKER) (test code = 10.2 mg/dL 2.3-4.7 604) [employer] Officer ID - YULIANA MTROPONIN [id number] 06:47:00 Test Item Value Reference Range Interpretation Comments TROPONIN I (BEAKER) (test code = 7.16 ng/mL 0.00-0.03 HH 397) Troponin I (TnI) levels must be interpreted in the context of the presenting symptoms and the clinical findings. Elevated TnI levels indicate myocardial damage, but are not specific for ischemic heart disease. Elevated TnI levels are seen in patients with other cardiac conditions (including myocarditis and congestive heart failure), and slight TnI elevations occur in patients with other conditions, including sepsis, renal failure, acidosis, acute neurological disease, and persistent tachyarrhythmia.[employer] Officer ID - YULIANA MBASIC METABOLIC [id number] 06:40:00 Test Item Value Reference Range Interpretation Comments SODIUM (BEAKER) 137 meq/L 136-145 (test code = 381) POTASSIUM (BEAKER) 5.7 meq/L 3.5-5.1 H (test code = 379) CHLORIDE (BEAKER) 97 meq/L 98-107 L (test code = 382) CO2 (BEAKER) (test 19 meq/L 22-29 L code = 355) BLOOD UREA NITROGEN 85 mg/dL 7-21 H (BEAKER) (test code = 354) CREATININE (BEAKER) 11.98 mg/dL 0.57-1.25 H (test code = 358) GLUCOSE RANDOM 121 mg/dL 70-105 H (BEAKER) (test code = 652) CALCIUM (BEAKER) 10.3 mg/dL 8.4-10.2 H (test code = 697) EGFR (BEAKER) (test 4 mL/min/1.73 ESTIMAT ED GFR IS code = 1092) sq m NOT ACCURATE CREATININE CLEARANCE IN PREDICTING GLOMERULAR FILTRATION RATE . ESTIMATED GFR I S NOT APPLICABLE FOR DIALYSIS PATIEN TS. [employer] Officer ID - YULIANA [id number] 05:56:00 Test Item Value Reference Range Interpretation Comments MAGNESIUM (BEAKER) (test code = 2.7 mg/dL 1.6-2.6 H 627) [employer] Officer ID - YULIANA [id number] 05:33:00 Test Item Value Reference Range Interpretation Comments PARTIAL THROMBOPLASTIN TIME 53.3 seconds 22.5-36.0 H (BEAKER) (test code = 760) PROTHROMBIN TIME/[id number] 05:32:00 Test Item Value Reference Range Interpretation Comments PROTIME (BEAKER) (test code = 22.2 seconds 11.9-14.2 H 759) INR (BEAKER) (test code = 370) 2.03 <=5.90 Effective 03/11/2019: PT Reference Range ChangeNew: 11.9-14.2 Previous: 11.7- 14.7RECOMMENDED COUMADIN/WARFARIN INR THERAPY RANGESSTANDARD DOSE: 2.0-3.0 Includes: PROPHYLAXIS for venous thrombosis, systemic embolization; TREATMENT for venous thrombosis and/or pulmonary embolus.HIGH RISK: Target INR is2.5-3.5 for patients wiht mechanical heart valves.CBC (HEMOGRAM ONLY)2020-09-27 05:29:00 Test Item Value Reference Range Interpretation Comments WHITE BLOOD CELL COUNT (BEAKER) 11.6 K/ L 3.5-10.5 H (test code = 775) RED BLOOD CELL COUNT (BEAKER) 3.19 M/ L 4.63-6.08 L (test code = 761) HEMOGLOBIN (BEAKER) (test code = 9.8 GM/DL 13.7-17.5 L 410) HEMATOCRIT (BEAKER) (test code = 31.0 % 40.1-51.0 L 411) MEAN CORPUSCULAR VOLUME (BEAKER) 97.2 fL 79.0-92.2 H (test code = 753) MEAN CORPUSCULAR HEMOGLOBIN 30.7 pg 25.7-32.2 (BEAKER) (test code = 751) MEAN CORPUSCULAR HEMOGLOBIN CONC 31.6 GM/DL 32.3-36.5 L (BEAKER) (test code = 752) RED CELL DISTRIBUTION WIDTH 17.3 % 11.6-14.4 H (BEAKER) (test code = 412) PLATELET COUNT (BEAKER) (test 228 K/CU MM 150-450 code = 756) MEAN PLATELET VOLUME (BEAKER) 10.8 fL 9.4-12.4 (test code = 754) NUCLEATED RED BLOOD CELLS 0 /100 WBC 0-0 (BEAKER) (test code = 413) RAD, CHEST, 1 VIEW, NON [id number] 05:12:00Reason for exam:- >HypoxiaShould this be performed at the bedside?->Yes [facility]ODI MORAN : 1945 Sex: MFINAL REPORT RAD, CHEST, 1 VIEW, NON DEPT INDICATION: Hypoxia TYESHA RISON: None FINDINGS: Portable frontal view of the chest. IMPRESSION: Nonspecific bilateral patchyairspace disease can be seen with pulmonary edema or pneumonitis, including COVID-19 infection. Retrocardiac consolidation, likely atelectasis. Small bilateral pleural effusions suspected. No pneumothorax or significant pleural effusion. The cardiomediastinal silhouette is magnified by technique. Intact osseous structures. Signed: Smith Coronaeport Verified Date/Time: 09/27/2020 05:12:42 POCT-GLUCOSE [id number] 21:55:00 Test Item Value Reference Range Interpretation Comments POC-GLUCOSE METER 124 mg/dL 70-110 H : TESTED A T [facility] 6720 (TAY) (test code = [place], 1538) [address]: [employer] Lo[employer] Officer/Techni sandi ID = [id number] for Moe Aiken [id number] 21:29:00 Test Item Value Reference Range Interpretation Comments PARTIAL THROMBOPLASTIN TIME 43.8 seconds 22.5-36.0 H (CHANDUAKER) (test code = 760) Prior to initiating fgsbbdrHUKUDRAJSM1064-20-50 21:28:00 Test Item Value Reference Range Interpretation Comments PHOSPHORUS (TAY) (test code = 9.7 mg/dL 2.3-4.7 604) [employer] Lo[employer] Officer ID - DBComprehensive metabolic [id number] 21:27:00 Test Item Value Reference Range Interpretation Comments Protein, Total (test 7.4 6.0- 8.3 gm/dL code = 2885-2) Albumin (test code = 3.5 g/dL 3.5-5 18414-3) Alkaline Phosphatase 61 U/L 40-150 (test code = 6768-6) Total Bilirubin (test 1.1 mg/dL 0.2-1.2 code = 1975-2) Sodium (test code = 137 meq/L 371-402 5480-2) Potassium (test code = 5.4 meq/L 3.5-5.1 H 2823-3) Chloride (test code = 100 meq/L 98-107 5-0) CO2 (test code = 18 meq/L 22-29 L 8-9) BUN (test code = 81 mg/dL 7-21 H 3094-0) Creatinine (test code 11.31 mg/dL 0.57-1.25 H = 2160-0) Glucose (test code = 133 mg/dL 70-105 H 2345-7) Calcium (test code = 9.9 mg/dL 8.4-10.2 59969-7) AST (test code = 18 U/L 5-34 1920-8) ALT (test code = 20 U/L 6-55 1742-6) EGFR (test code = 4 mL/min/1.73 [place] [address]-1) NOT ACCURATE CREATININE CLEARANCE IN PREDICTING GLOMERULAR FILTRATION RATE . ESTIMATED GFR I S NOT APPLICABLE FOR DIALYSIS PATIENTS. SID (test code = SID) Credit [employer] Lo[employer] Officer ID - DB Lab Interpretation Abnormal (test code = 95305-4) [facility]COMPRE[facility]ENS[facility] [id number] 21:27:00 Test Item Value Reference Range Interpretation Comments TOTAL PROTEIN 7.4 gm/dL 6.0-8.3 (BEAKER) (test code = 770) ALBUMIN (BEAKER) 3.5 g/dL 3.5-5.0 (test code = 1145) ALKALINE PHOSPHATASE 61 U/L 40-150 (BEAKER) (test code = 346) BILIRUBIN TOTAL 1.1 mg/dL 0.2-1.2 (BEAKER) (test code = 377) SODIUM (BEAKER) (test 137 meq/L 136-145 code = 381) POTASSIUM (BEAKER) 5.4 meq/L 3.5-5.1 H (test code = 379) CHLORIDE (BEAKER) 100 meq/L 98-107 (test code = 382) CO2 (BEAKER) (test 18 meq/L 22-29 L code = 355) BLOOD UREA NITROGEN 81 mg/dL 7-21 H (BEAKER) (test code = 354) CREATININE (BEAKER) 11.31 mg/dL 0.57-1.25 H (test code = 358) GLUCOSE RANDOM 133 mg/dL 70-105 H (BEAKER) (test code = 652) CALCIUM (BEAKER) 9.9 mg/dL 8.4-10.2 (test code = 697) AST (SGOT) (BEAKER) 18 U/L 5-34 (test code = 353) ALT (SGPT) (BEAKER) 20 U/L 6-55 (test code = 347) EGFR (BEAKER) (test 4 mL/min/1.73 ESTIMAT ED GFR IS code = 1092) sq m NOT ACCURATE CREATININE CLEARANCE IN PREDICTING GLOMERULAR FILTRATION RATE . ESTIMATED GFR I S NOT APPLICABLE FOR DIALYSIS PATIEN TS. [employer] Lo[employer] Officer ID - [id number] 21:24:00 Test Item Value Reference Range Interpretation Comments MAGNESIUM (BEAKER) (test code = 2.6 mg/dL 1.6-2.6 627) [employer] Lo[employer] Officer ID - DBCBC W/PLT COUNT & AUTO [id number] 21:10:00 Test Item Value Reference Range Interpretation Comments WHITE BLOOD CELL COUNT (BEAKER) 11.7 K/ L 3.5-10.5 H (test code = 775) RED BLOOD CELL COUNT (BEAKER) 3.02 M/ L 4.63-6.08 L (test code = 761) HEMOGLOBIN (BEAKER) (test code = 9.4 GM/DL 13.7-17.5 L 410) HEMATOCRIT (BEAKER) (test code = 30.0 % 40.1-51.0 L 411) MEAN CORPUSCULAR VOLUME (BEAKER) 99.3 fL 79.0-92.2 H (test code = 753) MEAN CORPUSCULAR HEMOGLOBIN 31.1 pg 25.7-32.2 (BEAKER) (test code = 751) MEAN CORPUSCULAR HEMOGLOBIN CONC 31.3 GM/DL 32.3-36.5 L (BEAKER) (test code = 752) RED CELL DISTRIBUTION WIDTH 17.2 % 11.6-14.4 H (BEAKER) (test code = 412) PLATELET COUNT (BEAKER) (test 216 K/CU MM 150-450 code = 756) MEAN PLATELET VOLUME (BEAKER) 10.7 fL 9.4-12.4 (test code = 754) NUCLEATED RED BLOOD CELLS 0 /100 WBC 0-0 (BEAKER) (test code = 413) NEUTROPHILS RELATIVE PERCENT 80 % (BEAKER) (test code = 429) LYMPHOCYTES RELATIVE PERCENT 11 % (BEAKER) (test code = 430) MONOCYTES RELATIVE PERCENT 6 % (BEAKER) (test code = 431) EOSINOPHILS RELATIVE PERCENT 2 % (BEAKER) (test code = 432) BASOPHILS RELATIVE PERCENT 1 % (BEAKER) (test code = 437) NEUTROPHILS ABSOLUTE COUNT 9.37 K/ L 1.78-5.38 H (BEAKER) (test code = 670) LYMPHOCYTES ABSOLUTE COUNT 1.31 K/ L 1.32-3.57 L (BEAKER) (test code = 414) MONOCYTES ABSOLUTE COUNT (BEAKER) 0.67 K/ L 0.30-0.82 (test code = 415) EOSINOPHILS ABSOLUTE COUNT 0.23 K/ L 0.04-0.54 (BEAKER) (test code = 416) BASOPHILS ABSOLUTE COUNT (BEAKER) 0.06 K/ L 0.01-0.08 (test code = 417) IMMATURE GRANULOCYTES-RELATIVE 0 % 0-1 PERCENT (BEAKER) (test code = 2801) POCT-GLUCOSE [id number] 18:17:00 Test Item Value Reference Range Interpretation Comments POC-GLUCOSE METER 112 mg/dL 70-110 H : TESTED A T [facility] 6720 (BEAKER) (test code [facility], = 1538) [address]: Credit [employer] Loans Officer/Techni sandi ID = [id number] for CYNTHIA BETH [id number]-[id number] 00:00:00Ordered by an unspecified provider.[facility] AND [id number] 03:02:00Yellow *NA*(09/02/19 9:02 PM) [facility] AND [id number] 03:02:00Slight *ABN*(09/02/19 9:02 PM) [facility] AND [id number] 03:02:00 Test Item Value Reference Range Interpretation Comments UA Spec Grav (test code = UA Spec 1.011 1 Grav) [facility] AND [id number] 03:02:00 Test Item Value Reference Range Interpretation Comments UA pH (test code = UA pH) 8.0 1 5.0-8.0 [facility] AND [id number] 03:02:00Negative *NA*(09/02/19 9:02 PM)[facility] [id number] 03:02:00Negative *NA*(09/02/19 9:02 PM)[facility] MYSFA1705-52-21 03:02:00Small *ABN*(09/02/19 9:02 PM)[facility] [id number] 03:02:00Negative (09/02/19 9:02 PM) [facility] DJKIV9840-58-97 03:02:00Moderate *ABN*(09/02/19 9:02 PM)[facility] QTUPR9274-60-23 03:02:00None Seen (09/02/19 9:02 PM)[facility] BLGGI7047-00-54 03:02:79299[facility]otkqzm [facility] AND TNVYN2525-12-32 03:02:0010[facility]annCHE[facility] YSDPA5805-58-05 11:49:002.5 [facility] WXBEY2272-42-99 11:49:006.1[facility]annELECTROLYTES 2018-11-25 11:49:0013.9[facility] NchvzzyWPTROPXDNDFR6857-95-64 11:49:007[facility] KwfeuonQEEISDNQXTKE7668-59-14 11:49:003.9[facility] GfnjalnQBFIFWIDVGMC7341-48-54 11:49:009.4[facility] YftckvbICGWXDEDMZFU0684-97-86 11:49:0098[facility] ZKLLDWLTVDIV8166-58-83 11:49:55386Ksxxohxg DncyhtzNHRYBMCVQCIX1146-07-65 11:49:0029[facility] UyxpyaeIWZOPZQOPQRE6868-18-18 11:49:97831Uulhxptw [facility] GDIQRUWLHQYX9304-41-32 11:49:006.85[facility] MmjufbeFEUONRHXWYDQ1882-33-92 11:49:0050[facility] OrmddvtVTEZYUYDXL2851-53-21 11:49:00 Test Item Value Reference Range Interpretation Comments PTT (test code = PTT) 61.4 s 22.9-35.8 [facility] ButofckRDEJSNRKOU2577-48-79 11:49:00 Test Item Value Reference Range Interpretation Comments INR (test code = INR) 2.69 1 0.85-1.17 [facility] BofipwkRESVXHEHQF2445-00-63 11:49:00 Test Item Value Reference Range Interpretation Comments PT (test code = PT) 28.0 s 12.0-14.7 [facility] UevkxqePOPJQELDSD4864-82-97 11:49:000.1[facility]annHEMATOLOGY 2018-11-25 11:49:000.7[facility] TbwwltgPGISCYBXZN4106-01-03 11:49:000.9[facility] EbvrmwaBXFLZNZHMG3218-63-91 11:49:001.9[facility] EbufeazNZYEONGHJP3466-09-44 11:49:007.3[facility] RvnnponDUPXRZTKXX8877-65-84 11:49:006.0[facility] FUGSYBHJBC2343-63-01 11:49:008.5[facility] UynaaztFZQRBKYYDF9321-01-08 11:49:000.8 [facility] NuxmftpCZCSEHDHOY2314-85-93 11:49:0067.0[facility]annHEMATOLOGY 2018-11-25 11:49:0017.7[facility] JyhenbuOOZTMTHXLN8409-67-26 11:49:0011.0[facility] ZvwsmtaZQQRDFCYQC0631-21-34 11:49:002.69[facility] YeualhnBPXOYQKMJT3628-29-51 11:49:0025.0[facility] GueoriuGXQLUQOMFM2651-79-64 11:49:008.4[facility] QDAVAMNJVH3976-96-78 11:49:00 Test Item Value Reference Range Interpretation Comments MCH (test code = MCH) 31.4 pg 27.0-31.0 [facility] MitrwgcMKZMBOHVJX6804-06-09 11:49:0093.0[facility]ann[facility]MATOLOGY 2018-11-25 11:49:009.2[facility] ZaspobkONROMEMWKI7468-49-70 11:49:31079Vwtzpbbk CsxbzrdAJEKLTDILC0557-36-79 11:49:0015.4[facility] RbjyqocHAZKOIYYUU5159-12-70 11:49:0033.7[facility]annCHEM LNRZO5857-41-86 10:46:006.7[facility]annCHE[facility] MYLAT5409-61-13 10:46:002.6[facility]annCHE[facility] PQBJB7583-55-42 10:46:006 [facility] XPUMS2938-45-36 10:46:0028[facility]annCHEM PANEL 2018-11-24 10:46:009.6[facility]annCHE[facility] SSZQY3128-91-16 10:46:0057[facility]annCHE[facility] XUZYW8894-65-12 10:46:007.59[facility]annCHEM CHURX9384-42-04 10:46:06360Yghkapci HermannCHEM XBFKR9513-02-03 10:46:005.3[facility]annCHE[facility] XEPKV3461-17-35 10:46:0098[facility]annCHEM UHEJL1272-70-05 10:46:29709 [facility]annCHE[facility] ORJOM4334-43-24 10:46:0015.3[facility]annHEMATOLOGY 2018-11-24 10:46:002.3[facility] FdkmsjqPCFXTPYSLG9824-25-80 10:46:007.0[facility] GrubrdgGWEDARMKON6255-56-37 10:46:005.7[facility] UccybsjSLZDTCYPVD7224-38-94 10:46:000.9[facility] LsagxhtBBUDNBUJAZ8506-49-92 10:46:000.1[facility] GYAKWVTBIH4226-31-92 10:46:000.7[facility] YtaytmyKQPQGKHPIO5368-68-02 10:46:00 23.6[facility] JdfogiuTNDJDQLZWS2494-18-50 10:46:0059.3[facility]annHEMATOLOGY 2018-11-24 10:46:009.2[facility] LygsrnuJTAKSRVLQV0101-06-17 10:46:000.9[facility] LlcdjabXNYSDWHJWH8540-67-49 10:46:0093.1[facility] JkgfnenAFTGMRWWFB3523-10-96 10:46:0034.3[facility] PkttaxbUZSACKRGDN9338-35-17 10:46:0015.5[facility] RSIJWMUQQW6379-18-74 10:46:01780Sgazhhne IwxnodfBXMYXXJGFP5451-97-78 10:46:009.7 [facility] DepczrhFACISOPEIV5644-01-66 10:46:00 Test Item Value Reference Range Interpretation Comments MCH (test code = MCH) 32.0 pg 27.0-31.0 [facility] GdyhtufSVVDOUDMXJ3198-14-99 10:46:002.72[facility]annHEMATOLOGY 2018-11-24 10:46:008.7[facility] YfttguiRBRSTCXSGP4229-76-06 10:46:0025.3[facility] DklmdzwDKLYJKLBSR8421-91-29 10:46:009.8[facility] YsshwqhLASYVJMARH1615-58-01 10:46:00 Test Item Value Reference Range Interpretation Comments INR (test code = INR) 2.31 1 0.85-1.17 [facility] RqihxjmCKETSZPGDW1459-42-22 10:46:00 Test Item Value Reference Range Interpretation Comments PTT (test code = PTT) 79.5 s 22.9-35.8 [facility] AnqdwtqPTEOURPEFW5460-96-90 10:46:00 Test Item Value Reference Range Interpretation Comments PT (test code = PT) 24.9 s 12.0-14.7 [facility] HermannCHEM VWDBR9692-57-65 09:40:009[facility]annCHEM PANEL 2018-11-23 09:40:0039[facility] HermannCHEM AKQZT0209-56-99 09:40:005.64[facility] HermannCHEM QSTSB2645-95-64 09:40:18474Vgmqpulr HermannCHEM BFLPY8308-52-73 09:40:44268Pxiifqvm HermannCHEM PCHWA3979-83-45 09:40:009.4[facility] HermannCHEM BXSAR5140-34-91 09:40:47789Htpwjwuw HermannCHEM UBDGQ5719-21-92 09:40:0013.7 [facility]annCHEM FKAZH5331-30-34 09:40:003.7[facility] HermannCHEM PANEL 2018-11-23 09:40:0030[facility] KawcqzrIVVHTCMVSH8035-74-93 09:40:0093.6[facility] HmihkjmSWBCLUSQZC3261-51-49 09:40:0025.3[facility] OlgjtygLIDXGGFUCH2927-54-82 09:40:0034.7[facility] XjptcpzHEDCNENZDT7926-63-90 09:40:0015.7[facility] JTUFIUENUN5187-22-65 09:40:47383Xjthwbex KyqrcweORBVZYKPAY5465-49-06 09:40:00 Test Item Value Reference Range Interpretation Comments MCH (test code = MCH) 32.5 pg 27.0-31.0 [facility] HiakruvDFNQIYZYHO0165-96-22 09:40:002.70[facility]annHEMATOLOGY 2018-11-23 09:40:008.8[facility] FoowasxMZHGGFMCCD5568-03-12 09:40:009.8[facility] GnrufxtLYKGWNALHE9500-11-75 09:40:007.8[facility] MynoeyoXKATVQCHZC2161-58-81 09:40:00 Test Item Value Reference Range Interpretation Comments INR (test code = INR) 1.62 1 0.85-1.17 [facility] KvwzdbzMUSZJOKYGP2198-88-94 09:40:00 Test Item Value Reference Range Interpretation Comments PTT (test code = PTT) 77.2 s 22.9-35.8 [facility] GhmxvaqGIYRSQSYOD9572-82-49 09:40:00 Test Item Value Reference Range Interpretation Comments PT (test code = PT) 18.9 s 12.0-14.7 [facility] QkynjriGZVJFAXETZ2412-35-53 09:40:000.7[facility]annHEMATOLOGY 2018-11-23 09:40:000.6[facility] RvgrawuKJFKZDOSZI4524-44-96 09:40:000.1[facility] OwjohguVZSJCPGMMJ4987-04-55 09:40:001.7[facility] UxyeqaaXTOBDYZUHU1992-05-03 09:40:0060.5[facility] KjnomqyTVKPACXMSK7833-22-20 09:40:0021.3[facility] YHKAWAZXJZ6215-82-40 09:40:004.7[facility] JzpdkhxGNSJDTIBFY0641-28-35 09:40:001.0 [facility] QyblbvbHNBEDLVWTN9491-75-46 09:40:007.9[facility]annHEMATOLOGY 2018-11-23 09:40:009.3[facility] HermannCHEM IQIRU5389-31-83 10:20:007.6[facility] HermannCHEM RPCSM4031-56-58 10:20:002.5[facility] HermannPARATHYROID PROFILE 2018-11-22 10:20:001.15[facility]annPARATHYROID GNXGRHR7968-57-77 10:20:00 1.18[facility]annPARATHYROID TOZSAGS7440-26-80 09:49:001.13[facility] [place] PARATHYROID PVKKWQZ3692-16-83 09:49:001.12[facility] HermannBACTERIAL - SEROLOGY 2018-11-19 09:06:00Negative (11/19/18 3:06 AM)[facility]annPARATHYROID PROFILE 2018-11-19 09:06:001.11[facility] HermannPARATHYROID DXTRVWE0035-21-07 09:06:00 1.10[facility] OogokbiJWATJCNPSM2948-88-65 11:43:00Negative *NA*(11/18/18 5:43 AM) [facility] NmrbqhhYAPHHACRPV6813-52-17 11:43:0066.7[facility] HermannIMMUNOLOGY 2018-11-18 11:43:00Negative *NA*(11/18/18 5:43 AM)[facility]annIMMUNOLOGY 2018-11-18 11:43:00Negative *NA*(11/18/18 5:43 AM)[facility] HermannIMMUNOLOGY 2018-11-18 11:43:00Negative *NA*(11/18/18 5:43 AM)[facility]annBLOOD BANK USGAZZM3909-93-92 16:45:00Product available (11/17/18 10:45 AM)[facility] SAZNEMF6947-62-89 16:45:00Product available (11/17/18 10:45 AM)[facility]BL[facility] B[facility] TENDYXP3946-94-40 16:45:00Product available (11/17/18 10:45 AM) [facility]BL[facility]OD BANK MUEGVNN6878-54-35 20:06:00Negative (11/14/18 2:06 PM) [facility]annCHEM NKTGM5724-30-99 16:45:003.9[facility] HermannCHEM PANEL 2018-11-14 16:45:00 Test Item Value Reference Range Interpretation Comments A/G Ratio (test code = A/G Ratio) 0.9 1 0.7-1.6 [facility]annCHEM VQEFJ8187-37-35 16:45:000.1[facility]annCHEM PANEL 2018-11-14 16:45:000.4[facility]annCHEM DXELE0159-76-99 16:45:0091[facility]annCHEM MIVZR0434-43-35 16:45:000.5[facility]annCHEM CJDWB9621-83-27 16:45:003.6[facility]annCHEM PVQMF0869-96-03 16:45:0021[facility]annCHEM UXLUG2451-94-89 16:45:0012[facility]annCHEM XQLSW8672-55-40 16:45:007.5 [facility]annSPECIAL EDJXSCIOQ2439-67-98 16:45:006.8[facility] [place] HVJHNQYKFO3874-75-70 17:07:60418Gahmduqt RlvwuxtSKKQHCIPOO1383-19-82 15:00:46478 [facility] VfvjaouZGPQAYKEXHZI1282-47-13 19:27:49428Ygpqebnd HermannELECTROLYTES 2015-08-29 19:27:76167Mcknakbl LrvjushZMCRWHYNDVLE4092-45-18 19:27:003.6[facility] KlweuxpBJWPQOEGYODF9096-42-06 19:27:004.21[facility] TpqhshyUBKVQUFXIERJ6684-61-61 19:27:0027[facility] PncfkzmZEVZKRUKLROX4495-53-74 19:27:0010.6[facility] [place] JBZCZWINORNM3292-39-15 19:27:009.0[facility] GvkdqmrPGHWTYDAPXEF9871-03-29 19:27:0047[facility] EhhoglyESCVLCVIDZZZ9791-92-27 19:27:67050Qnwvjwmg [place] CCPGZUPBARQJ6632-23-65 19:27:0013[facility] HermannCHEM DDCFJ4313-21-77 17:05:0024 [facility]annCHEM RWUGZ7606-45-94 17:05:47117Lkilpgbo HermannCHEM PANEL 2014-11-01 17:05:0028[facility] HermannCHEM FEHQO8066-53-53 17:05:009.1[facility] HermannCHEM CFOPU6574-15-56 17:05:41095Ropgqagw HermannCHEM SUIOK4923-09-98 17:05:64037Edekoxee HermannCHEM AFFSV7156-14-36 17:05:002.6[facility] HermannCHEM WIIST4446-57-74 17:05:004.2[facility] HermannCHEM ERGMI8625-46-98 17:05:0023 [facility]annCHEM GXABT5322-04-12 17:05:0011.2[facility] HermannHEMATOLOGY 2014-11-01 17:05:29102Dtfzuepi NnvbpkjVVHCNWVCUJ2615-74-72 17:05:009.5[facility] WrorhuiNITBAFKPUJ1552-42-16 17:05:004.89[facility] IlwlgcdASWMNZKZRX9567-70-13 17:05:0014.3[facility] UjxzaezNBCAKHMKWF8716-54-34 17:05:0010.6[facility] [place] XXILMMKUHP9871-10-23 17:05:0012.7[facility] ByezwrnESCSNKSOSC9522-26-79 17:05:00 33.1[facility] BygveyzMXMVHZJRLO6265-72-63 17:05:0043.3[facility] HermannHEMATOLOGY 2014-11-01 17:05:0088.6[facility] FqtxgviCPXLPONTKB0194-93-16 17:05:00 Test Item Value Reference Range Interpretation Comments MCH (test code = MCH) 29.3 pg 27.0-31.0 [facility] [id number] 17:05:007.7[facility] 2014-[facility]01 17:05:000.0[facility] [id number] 17:05:000.5[facility] [id number] 17:05:000.2[facility] [id number] 17:05:002.3[facility] [id number] 17:05:0072.1[facility] [id number] 17:05:0021.4[facility] [id number] 17:05:00 4.5[facility] [id number] 17:05:000.3[facility] 2014-11-01 17:05:001.7[facility]annSPECIAL [id number] 17:05:007.1 [facility]
[2020-11-16 16:56] LABS: Absolute Lymphocytes (CBC) 0.8 K/uL (0.7-4.9); Basophils % 0.8 % (0-1.3); Hematocrit 29.5 % (39.6-49.0); Lymphocytes % 10.2 % (15.3-44.8); MPV 9.1 fL (7.6-11.3); RBC Red Blood Cell Count 3.16 M/uL (4.33-5.43)
[2020-11-16 17:02] LABS: Protime INR 1.47
--- NOTE | 2020-11-16 17:27 | RAD REPORT ---
EXAM DESCRIPTION: Debby Single View11/16/2020 5:06 pm CLINICAL HISTORY: Chest pain COMPARISON: September 2020 FINDINGS: The lungs appear clear of acute infiltrate. The heart is mildly to moderately enlarged. P ostsurgical changes involve the chest. There may be small left pleural effusion
[2020-11-16 17:28] LABS: Albumin 3.2 g/dL (3.4-5.0); Bilirubin Direct 0.3 mg/dL (0-0.2); Bilirubin Total 0.5 mg/dL (0.2-1.0); Magnesium 2.2 mg/dL (1.8-2.4); Potassium 4.3 mmol/L (3.5-5.1); Protein, Total 8.4 g/dL (6.4-8.2); Troponin (Emerg Dept Use Only) 0.06 ng/mL (0.0-0.045)
--- NOTE | 2020-11-16 18:32 | ER ---
Nurse's Notes [facility] Name: John Paul Morales Age: 75 yrs Sex: Male : 1945 Arrival Date: 11/16/2020 Time: 16:17 Bed 4 Private MD: Diagnosis: Chest pain, unspecified Presentation: 11/16 16:22 Chief complaint: Patient states: CP for 1 hour [place] [place], off/on. Slight SOB. Coronavirus ll1 screen: Client denies travel out of the [place] in the last 14 days. At this time, the client does not indicate any symptoms associated with coronavirus-19. Ebola Screen: Patient denies travel to an Ebola-affected area in the 21 days before illness onset. Initial Sepsis Screen: Does the patient meet any 2 criteria? No. Patient's initial sepsis screen is negative. Does the patient have a suspected source of infection? No. Patient's initial sepsis screen is negative. Risk Assessment: Do you want to hurt yourself or someone else? Patient reports no desire to harm self or others. Onset of symptoms was November 16, 2020. 16:22 Method Of Arrival: Wheelchair ll1 16:22 Acuity: URSULA 3 ll1 Historical: - Allergies: 16:25 No Known Allergies; ll1 - PMHx: 16:25 Dialysis; MWF; ESRD; High Cholesterol; Hypertension; Myocardial infarction; ll1 - PSHx: 16:25 MITRAL VALVE REPLACEMENT; quadruple bypass; ll1 - Immunization history:: Flu vaccine is up to date. - Social history:: Smoking status: Patient denies any tobacco usage or history of. Screenin:52 Abuse screen: Denies threats or abuse. Denies injuries from another. Nutritional ss screening: No deficits noted. Tuberculosis screening: Never had TB. Fall Risk None identified. Assessment: 16:30 General: Appears in no apparent distress. comfortable, Behavior is calm, cooperative, ss Denies fever, feeling ill, fatigue, chills. Pain: Complains of pain in chest Pain does not radiate. Pain currently is 0 out of 10 on a pain scale. at worst was 4 out of 10 on a pain scale. Pain began 1 hour prior to arrival. Neuro: Level of Consciousness is awake, alert, obeys commands, Oriented to person, place, time, situation. Cardiovascular: Capillary refill < 3 seconds is brisk in bilateral fingers. Respiratory: Airway is patent Respiratory effort is even, unlabored, Respiratory pattern is regular, symmetrical. GI: No signs and/or symptoms were reported involving the gastrointestinal system. Patient currently denies diarrhea, nausea, vomiting. : No signs and/or symptoms were reported regarding the genitourinary system. EENT: Nares are clear Throat is clear. Derm: Skin is intact, is healthy with good turgor, Skin is dry, Skin is pink, warm \T\ dry. normal. 17:42 Reassessment: Patient appears in no apparent distress at this time. Patient and/or ss family updated on plan of care and expected duration. Pain level reassessed. Patient is alert, oriented x 3, equal unlabored respirations, skin warm/dry/pink. Vital Signs: 16:22 BP 155 / 54; Pulse 67; Resp 18; Temp 98.9; Pulse Ox 97% on R/A; Weight 102.06 kg; ll1 Height 6 ft. 1 in. (185.42 cm); Pain 4/10; 17:44 BP 144 / 55; Pulse 63; Resp 16; Pulse Ox 95% on R/A; Pain 0/10; ss 16:22 Body Mass Index 29.68 (102.06 kg, 185.42 cm) ll1 ED Course: 16:17 Patient arrived in ED. ds1 16:22 Arm band placed on. ll1 16:24 Triage completed. 1 16:30 [facility] 16:30 Torsten Márquez MD is Attending Physician. [facility] 16:30 Patient has correct armband on for positive identification. Bed in low position. Call hb light in reach. Side rails up X 1. youth nutritional monitor on. Pulse ox on. NIBP on. 16:52 Elma Donohue, MATTEO is Primary Nurse. ss 16:52 Inserted saline lock: 22 gauge in right antecubital area, using aseptic technique. ss Blood collected. Patient maintains SpO2 saturation greater than 95% on room air. 17:06 XRAY Chest (1 view) In Process Unspecified. EDMS 17:36 Magnesium Sent. sv 17:36 LFT's Sent. sv 17:36 CBC with Diff Sent. sv 17:36 Basic Metabolic Panel Sent. sv 18:15 No provider procedures requiring assistance completed. IV discontinued, intact, ss bleeding controlled, No redness/swelling at site. Pressure dressing applied. Administered Medications: No medications were administered Outcome: 18:15 AMA AMA form signed ss 18:15 Condition: stable 18:15 Instructed on follow up and referral plans. 18:38 Patient left the ED. sv Signatures: Dispatcher [employer] Leonie Rees RN RN Tony Sethi PA PA jmm Sanford, Demi ds1 Elma Donohue RN RN Lian Cadena RN RN Bryant Alvarez RN RN ll1
--- NOTE | 2020-11-16 18:32 | EDPHYS ---
Physician Documentation [facility] Name: John Paul Morales Age: 75 yrs Sex: Male : 1945 Arrival Date: 11/16/2020 Time: 16:17 Bed 4 Private MD: ED Physician Torsten Márquez HPI: 11/16 16:30 This 75 yrs old Male presents to ER via Wheelchair with complaints of Chest jmm Pain. 16:30 The patient or guardian reports chest pain that is located primarily in the epigastric jmm area. Onset: gradually, 1 hour(s) ago. The pain does not radiate. Associated signs and symptoms: Pertinent negatives: shortness of breath. The chest pain is described as sharp. This is a 75 year old male with a history of ESRD, CAD, recent CABG approx 6 weeks ago that presents to the ED with complaints of substernal chest pain which began approx 1 hour ago. Patient states the pain was sharp and lasted for approx 15 to 20 seconds at a time. . Historical: - Allergies: 16:25 No Known Allergies; ll1 - PMHx: 16:25 Dialysis; MWF; ESRD; High Cholesterol; Hypertension; Myocardial infarction; ll1 - PSHx: 16:25 MITRAL VALVE REPLACEMENT; quadruple bypass; ll1 - Immunization history:: Flu vaccine is up to date. - Social history:: Smoking status: Patient denies any tobacco usage or history of. ROS: 16:30 Constitutional: Negative for fever, chills, and weight loss. jmm 16:30 Cardiovascular: Positive for chest pain. 16:30 All other systems are negative. Exam: 16:30 Constitutional: This is a well developed, well nourished patient who is awake, alert, jmm and in no acute distress. Head/Face: atraumatic. Eyes: EOMI, no conjunctival erythema appreciated ENT: Moist Mucus Membranes Neck: Trachea midline, Supple Chest/axilla: Normal chest wall appearance and motion. Cardiovascular: Regular rate and rhythm. No edema appreciated Respiratory: Normal respirations, no respiratory distress appreciated Abdomen/GI: Non distended, soft Back: Normal ROM Skin: General appearance color normal MS/ Extremity: Moves all extremities, no obvious deformities appreciated, no edema noted to the lower extremities Neuro: Awake and alert, normal gait Psych: Behavior is normal, Mood is normal, Patient is cooperative and pleasant 16:45 ECG was reviewed by the Attending Physician. [facility] Vital Signs: 16:22 BP 155 / 54; Pulse 67; Resp 18; Temp 98.9; Pulse Ox 97% on R/A; Weight 102.06 kg; ll1 Height 6 ft. 1 in. (185.42 cm); Pain 4/10; 17:44 BP 144 / 55; Pulse 63; Resp 16; Pulse Ox 95% on R/A; Pain 0/10; ss 16:22 Body Mass Index 29.68 (102.06 kg, 185.42 cm) ll1 MDM: 16:45 Patient medically screened. [facility] 18:31 Data reviewed: vital signs, nurses notes. Counseling: I had a detailed discussion with [facility] the patient and/or guardian regarding: the historical points, exam findings, and any diagnostic results supporting the discharge/admit diagnosis, lab results, the need for further work-up and treatment in the hospital. Refusal of service: The patient/guardian displays adequate decision making capability and despite a detailed discussion of alternatives, benefits, risks, and consequences refuses: Admission to the hospital for further work-up and treatment. 11/16 16:31 Order name: Basic Metabolic Panel [facility] 11/16 16:31 Order name: CBC with Diff [facility] 11/16 16:31 Order name: LFT's [facility] 11/16 16:31 Order name: Magnesium [facility] 11/16 16:31 Order name: NT PRO-BNP; Complete Time: 17:38 [facility] 11/16 16:31 Order name: PT-INR; Complete Time: 17:20 [facility] 11/16 16:31 Order name: Troponin (emerg Dept Use Only); Complete Time: 17:38 [facility] 11/16 16:31 Order name: XRAY Chest (1 view); Complete Time: 17:38 [facility] 11/16 16:31 Order name: EKG; Complete Time: 16:32 [facility] 11/16 16:31 Order name: Cardiac monitoring; Complete Time: 16:54 [facility] 11/16 16:32 Order name: Basic Metabolic Panel; Complete Time: 17:38 [facility] 11/16 16:32 Order name: CBC with Automated Diff; Complete Time: 17:20 [facility] 11/16 16:32 Order name: Liver (Hepatic) Function; Complete Time: 17:38 [facility] 02 16:32 Order name: Magnesium; Complete Time: 17:38 [facility] 02 16:31 Order name: EKG - Nurse/Tech; Complete Time: 16:53 [facility] 02 16:31 Order name: IV Saline Lock; Complete Time: 16:54 [facility] 02 16:31 Order name: Labs collected and sent; Complete Time: 16:54 [facility] 02 16:31 Order name: O2 Per Protocol; Complete Time: 16:54 [facility] 11/16 16:31 Order name: O2 Sat Monitoring; Complete Time: 16:54 [facility] EC:45 Rate is 63 beats/min. Rhythm is irregular, 1st Degree Block. Left axis deviation noted. [facility] [place] interval is normal. QRS interval is normal. QT interval is normal. No Q waves. T waves are Inverted in lead aVL. No ST changes noted. Reviewed by me. Administered Medications: No medications were administered Disposition: 11/17 06:01 Co-signature as Attending Physician, Torsten Márquez MD I agree with the assessment and kdr plan of care. Disposition: 11/16/20 18:31 Patient has left against medical advice. Impression: Chest pain, unspecified. - Patients states they are going to Home. - Condition is Stable. - Discharge Instructions: Nonspecific Chest Pain. Follow up: Private Physician; When: 2 - 3 days; Reason: Recheck today's complaints, Continuance of care, Re-evaluation by your physician. - Problem is new. - Symptoms are unchanged. Signatures: Dispatcher [employer] [facility] Leonie Calderon RN RN Torsten Yoder MD MD kdr Mickail, Joel, PA PA [facility] Bryant Tellez, RN RN ll1 Corrections: (The following items were deleted from the chart) 02 18:38 18:31 11/16/2020 18:31 Patients has left against medical advice. Impression: Chest sv pain, unspecified. Patient states they are going to Home. Condition is Stable. Follow up: Private Physician; When: 2 - 3 days; Reason: Recheck today's complaints, Continuance of care, Re-evaluation by your physician. Problem is new. Symptoms are unchanged. [facility]
[2020-11-16 18:44] VITALS: TEMP 98.9
[2020-11-16 18:46] VITALS: BP 144/55; O2SAT 95
== END 2020-11-16 18:38 | disposition left against medical advice (07) ==
LOC: ER 16:16
DX: R07.9 Chest pain, unspecified (principal); I12.0 Hypertensive chronic kidney disease with stage 5 chronic kidney disease or end stage renal disease; N18.6 End stage renal disease; Z99.2 Dependence on renal dialysis; Z95.1 Presence of aortocoronary bypass graft; Z95.4 Presence of other heart-valve replacement
CPT/HCPCS: 36415; 71045; 80048; 80076; 83735; 83880; 84484; 85025; 85610; 93005; 99285

== ENCOUNTER 2020-12-01 12:26 | Emergency (ER) | payer OTHER ==
--- NOTE | 2020-12-01 15:29 | RAD REPORT ---
EXAM DESCRIPTION: RAD - Chest Single View - 12/01/2020 3:23 pm CLINICAL HISTORY: COUGH Chest pain. COMPARISON: Chest Single View dated 11/16/2020; Chest Single View dated 09/21/2020 FINDINGS: Portable technique limits examination quality. Mild interstitial pulmonary edema is seen. The heart is moderately enlarged in size. Sternotomy wires present.Aortic atherosclerosis. IMPRESSION: Mild CHF.
[2020-12-01 15:57] LABS: Basophils % 1.4 % (0-1.3); Hematocrit 33.1 % (39.6-49.0); Lymphocytes % 13.4 % (15.3-44.8); MPV 10.1 fL (7.6-11.3); RBC Red Blood Cell Count 3.54 M/uL (4.33-5.43)
[2020-12-01 15:58] LABS: Protime INR 2.34
[2020-12-01 16:25] LABS: Albumin 3.4 g/dL (3.4-5.0); Bilirubin Direct 0.2 mg/dL (0-0.2); Bilirubin Total 0.7 mg/dL (0.2-1.0); Magnesium 3.2 mg/dL (1.8-2.4); Protein, Total 8.7 g/dL (6.4-8.2); Troponin (Emerg Dept Use Only) 0.03 ng/mL (0.0-0.045)
[2020-12-01 16:27] LABS: Potassium 7.7 mmol/L (3.5-5.1)
--- NOTE | 2020-12-01 16:39 | EDPHYS ---
Physician Documentation [facility] Name: John Paul Morales Age: 75 yrs Sex: Male : 1945 Arrival Date: 12/01/2020 Time: 12:38 Bed 10 Private MD: ED Physician Denny Merlos HPI: 12/01 15:10 This 75 yrs old Male presents to ER via Wheelchair with complaints of maria de jesus Cellulitis of Leg. 15:10 The patient presents with decreased range of motion, pain, swelling, tenderness. The maria de jesus complaints affect the lateral aspect of right calf, right calf, medial aspect of right calf and right alcazar. Context: The problem was sustained at an unknown site. Onset: The symptoms/episode began/occurred 3 day(s) ago. Modifying factors: The symptoms are alleviated by elevating leg, the symptoms are aggravated by movement, weight bearing. Associated signs and symptoms: The patient has no apparent associated signs or symptoms. esrd on m,w, f, cabg in september. Treatment prior to arrival includes: no previous treatment. Severity of symptoms: At their worst the symptoms were mild in the emergency department the symptoms are unchanged. Historical: - Allergies: 12:46 No Known Allergies; ll1 - PMHx: 12:46 ESRD; Dialysis; MWF; High Cholesterol; Hypertension; Myocardial infarction; ll1 - PSHx: 12:46 MITRAL VALVE REPLACEMENT; quadruple bypass; ll1 - Immunization history:: Flu vaccine is up to date. - Social history:: Smoking status: Patient denies any tobacco usage or history of. - Family history:: not pertinent. ROS: 15:10 Constitutional: Negative for fever, chills, and weight loss, Eyes: Negative for injury, maria de jesus pain, redness, and discharge, ENT: Negative for injury, pain, and discharge, Neck: Negative for injury, pain, and swelling, Cardiovascular: Negative for chest pain, palpitations, and edema, Respiratory: Negative for shortness of breath, cough, wheezing, and pleuritic chest pain, Abdomen/GI: Negative for abdominal pain, nausea, vomiting, diarrhea, and constipation, Back: Negative for injury and pain, : Negative for injury, bleeding, discharge, and swelling, Skin: Negative for injury, rash, and discoloration, Neuro: Negative for headache, weakness, numbness, tingling, and seizure. 15:10 MS/extremity: Positive for swelling, tenderness, of the right leg and left leg. Exam: 15:10 Constitutional: This is a well developed, well nourished patient who is awake, alert, maria de jesus and in no acute distress. Head/Face: Normocephalic, atraumatic. Eyes: Pupils equal round and reactive to light, extra-ocular motions intact. Lids and lashes normal. Conjunctiva and sclera are non-icteric and not injected. Cornea within normal limits. Periorbital areas with no swelling, redness, or edema. ENT: Nares patent. No nasal discharge, no septal abnormalities noted. Tympanic membranes are normal and external auditory canals are clear. Oropharynx with no redness, swelling, or masses, exudates, or evidence of obstruction, uvula midline. Mucous membranes moist. Neck: Trachea midline, no thyromegaly or masses palpated, and no cervical lymphadenopathy. Supple, full range of motion without nuchal rigidity, or vertebral point tenderness. No Meningismus. Chest/axilla: Normal chest wall appearance and motion. Nontender with no deformity. No lesions are appreciated. Cardiovascular: Regular rate and rhythm with a normal S1 and S2. No gallops, murmurs, or rubs. Normal PMI, no JVD. No pulse deficits. Respiratory: Lungs have equal breath sounds bilaterally, clear to auscultation and percussion. No rales, rhonchi or wheezes noted. No increased work of breathing, no retractions or nasal flaring. Abdomen/GI: Soft, non-tender, with normal bowel sounds. No distension or tympany. No guarding or rebound. No evidence of tenderness throughout. Back: No spinal tenderness. No costovertebral tenderness. Full range of motion. Male : Normal genitalia with no discharge or lesions. Skin: Warm, dry with normal turgor. Normal color with no rashes, no lesions, and no evidence of cellulitis. Neuro: Awake and alert, GCS 15, oriented to person, place, time, and situation. Cranial nerves II-XII grossly intact. Motor strength 5/5 in all extremities. Sensory grossly intact. Cerebellar exam normal. Normal gait. Psych: Awake, alert, with orientation to person, place and time. Behavior, mood, and affect are within normal limits. 15:10 Musculoskeletal/extremity: Extremities: noted in the right leg and left leg: erythema, pain, swelling, tenderness, ROM: full active range of motion, full passive range of motion, Circulation is intact in all extremities. Sensation intact. Compartment Syndrome exam of affected extremity: is normal. DVT Exam: swelling, tenderness, of the right leg and left leg. 16:39 ECG was reviewed by the Attending Physician. [facility] Vital Signs: 12:46 BP 149 / 51; Pulse 55; Resp 18; Temp 97.1; Pulse Ox 99% ; Weight 99.79 kg; Height 6 ft. ll1 1 in. (185.42 cm); Pain 9/10; 14:27 BP 141 / 52; Pulse 50; ll1 16:01 BP 147 / 75; Pulse 49; Resp 15; Pulse Ox 97% on R/A; tw2 16:55 BP 149 / 77; Pulse 52; Resp 16; Pulse Ox 99% on R/A; tw2 12:46 Body Mass Index 29.03 (99.79 kg, 185.42 cm) ll1 MDM: 14:28 Patient medically screened. [facility] 15:13 Data reviewed: vital signs, nurses notes, lab test result(s), EKG, radiologic studies, maria de jesus doppler, plain films. Data interpreted: elephant keeper: rate is 50 beats/min, rhythm is regular. Test interpretation: by ED physician or midlevel provider: ECG, plain radiologic studies. Counseling: I had a detailed discussion with the patient and/or guardian regarding: the historical points, exam findings, and any diagnostic results supporting the discharge/admit diagnosis, lab results, radiology results. 12/01 15:09 Order name: Basic Metabolic Panel [facility] 12/01 15:09 Order name: CBC with Diff [facility] 12/01 15:09 Order name: LFT's [facility] 12/01 15:09 Order name: Magnesium [facility] 12/01 15:09 Order name: NT PRO-BNP 12/01 15:09 Order name: PT-INR [facility] 12/01 15:09 Order name: Troponin (emerg Dept Use Only); Complete Time: 16:28 [facility] 12/01 15:09 Order name: Lipase; Complete Time: 16:28 [facility] 12/01 15:09 Order name: Blood Culture Adult (2) [facility] 12/01 15:09 Order name: Basic Metabolic Panel; Complete Time: 16:28 [facility] 12/01 15:09 Order name: CBC with Automated Diff; Complete Time: 16:28 [facility] 12/01 15:09 Order name: Liver (Hepatic) Function; Complete Time: 16:28 [facility] 12/01 15:09 Order name: Magnesium; Complete Time: 16:28 [facility] 12/01 15:09 Order name: NT PRO-BNP; Complete Time: 16:28 [facility] 12/01 15:09 Order name: XRAY Chest (1 view); Complete Time: 16:28 [facility] 12/01 15:09 Order name: EKG; Complete Time: 15:10 [facility] 12/01 15:09 Order name: US Extremity Venous W Compression Kevon [facility] 12/01 15:09 Order name: Protime (+INR); Complete Time: 16:28 [facility] 12/01 17:00 Order name: Basic Metabolic Panel [facility] 12/01 17:01 Order name: Phosphorus [facility] 12/01 15:09 Order name: Cardiac monitoring; Complete Time: 16:15 [facility] 12/01 15:09 Order name: EKG - Nurse/Tech; Complete Time: 16:14 [facility] 12/01 15:09 Order name: IV Saline Lock; Complete Time: 15:47 [facility] 12/01 15:09 Order name: Labs collected and sent; Complete Time: 15:47 [facility] 12/01 15:09 Order name: O2 Per Protocol; Complete Time: 15:47 [facility] 12/01 15:09 Order name: O2 Sat Monitoring; Complete Time: 15:47 [facility] 12/01 17:00 Order name: Renal EDMS EC:39 Rate is 53 beats/min. Rhythm is regular. QRS [place] is Normal. [place] interval is normal. QRS maria de jesus interval is normal. QT interval is normal. No Q waves. T waves are Peaked. No ST changes noted. Clinical impression: 1st degree heart block, Sinus bradycardia, Suggests hyperkalemia, and No evidence of ischemia. Interpreted by me. Reviewed by me. Administered Medications: 17:04 Drug: Calcium Gluconate 1 grams {Note: per Dr. Merlos administer this when leaving [facility] for dialysis.} Route: IVPB; Infused Over: 60 mins; Site: right antecubital; 17:08 Follow up: IV Status: Infusion continued upon admission [facility] Disposition: 12/01/20 16:39 Hospitalization ordered by Yousuf Morrow for Inpatient Admission. Preliminary diagnosis are End stage renal disease - on HD, Edema, unspecified, Hyperkalemia, Bradycardia, unspecified. - Bed requested for Intensive Care Unit. - Status is Inpatient Admission. tw2 - Condition is Serious. - Problem is new. - Symptoms are unchanged. Signatures: Dispatcher [employer] EDDenny Ahmadi MD MD cha Wise, Tara RN RN tw2 Bryant Tellez RN RN ll1 Corrections: (The following items were deleted from the chart) 17:08 16:39 Hospitalization Ordered by Yousuf Morrow MD for Inpatient Admission. Preliminary tw2 diagnosis is End stage renal disease - on HD; Edema, unspecified; Hyperkalemia; Bradycardia, unspecified. Bed requested for Intensive Care Unit. Status is Inpatient Admission. Condition is Serious. Problem is new. Symptoms are unchanged. maria de jesus
--- NOTE | 2020-12-01 16:39 | ER ---
Nurse's Notes [facility] Name: John Paul Morales Age: 75 yrs Sex: Male : 1945 Arrival Date: 12/01/2020 Time: 12:38 Bed 10 Private MD: Diagnosis: End stage renal disease-on HD;Edema, unspecified;Hyperkalemia;Bradycardia, unspecified Presentation: 12/01 12:46 Chief complaint: Patient states: 1. RLE cellulitis just above R ankle. On antibiotics ll1 for 1 week, no improvement. L LE is starting to have pain, like the cellulitis is about to start on that extremity. No fever. 2. Last dialysis Saturday. Unable to get it done yesterday. Has appointment tomorrow. Coronavirus screen: Client denies travel out of the [place] in the last 14 days. At this time, the client does not indicate any symptoms associated with coronavirus-19. Ebola Screen: Patient denies travel to an Ebola-affected area in the 21 days before illness onset. Initial Sepsis Screen: Does the patient meet any 2 criteria? No. Patient's initial sepsis screen is negative. Does the patient have a suspected source of infection? Yes: Skin breakdown/wound. Risk Assessment: Do you want to hurt yourself or someone else? Patient reports no desire to harm self or others. Onset of symptoms was October 27, 2020. 12:46 Method Of Arrival: Wheelchair ll1 12:46 Acuity: URSULA 3 ll1 Historical: - Allergies: 12:46 No Known Allergies; ll1 - PMHx: 12:46 ESRD; Dialysis; MWF; High Cholesterol; Hypertension; Myocardial infarction; ll1 - PSHx: 12:46 MITRAL VALVE REPLACEMENT; quadruple bypass; ll1 - Immunization history:: Flu vaccine is up to date. - Social history:: Smoking status: Patient denies any tobacco usage or history of. - Family history:: not pertinent. Screenin:00 Abuse screen: Denies threats or abuse. Nutritional screening: No deficits noted. tw2 Tuberculosis screening: No symptoms or risk factors identified. Fall Risk Secondary diagnosis (15 points) impaired mobility. Assessment: 14:28 General: Appears in no apparent distress. Behavior is calm, cooperative, appropriate tw2 for age. Pain: Complains of pain in right leg and left leg. Neuro: Level of Consciousness is awake, alert, obeys commands, Oriented to person, place, time, situation. Cardiovascular: Patient's skin is warm and dry. Edema is 3+ to left knee, left midcalf, left ankle, right knee, right midcalf and right ankle. Respiratory: Airway is patent Respiratory effort is even, unlabored, Respiratory pattern is regular, symmetrical. GI: No signs and/or symptoms were reported involving the gastrointestinal system. Abdomen is round non-distended. : No signs and/or symptoms were reported regarding the genitourinary system. EENT: No signs and/or symptoms were reported regarding the EENT system. Derm: Skin is fragile, is thin, Skin is dry, Skin temperature is warm. Musculoskeletal: Range of motion: intact in all extremities. 14:28 Cardiovascular: Dialysis shunt: in the left arm. tw2 14:39 Reassessment: # [phone] FRANCISCO. tw2 16:01 Reassessment: Patient appears in no apparent distress at this time. No changes from tw2 previously documented assessment. Patient and/or family updated on plan of care and expected duration. Pain level reassessed. Patient is alert, oriented x 3, equal unlabored respirations, skin warm/dry/pink. 16:56 Reassessment: Patient appears in no apparent distress at this time. No changes from tw2 previously documented assessment. Patient and/or family updated on plan of care and expected duration. Pain level reassessed. Patient is alert, oriented x 3, equal unlabored respirations, skin warm/dry/pink. pt instructed on need to see dialysis nurse for dialysis at this time, pt agreeable, pts belonging bag provided. Vital Signs: 12:46 BP 149 / 51; Pulse 55; Resp 18; Temp 97.1; Pulse Ox 99% ; Weight 99.79 kg; Height 6 ft. ll1 1 in. (185.42 cm); Pain 9/10; 14:27 BP 141 / 52; Pulse 50; ll1 16:01 BP 147 / 75; Pulse 49; Resp 15; Pulse Ox 97% on R/A; tw2 16:55 BP 149 / 77; Pulse 52; Resp 16; Pulse Ox 99% on R/A; tw2 12:46 Body Mass Index 29.03 (99.79 kg, 185.42 cm) ll1 ED Course: 12:38 Patient arrived in ED. ds1 12:46 Arm band placed on. ll1 12:48 Triage completed. ll1 14:27 Bed in low position. Call light in reach. Side rails up X2. Pulse ox on. NIBP on. Warm tw2 blanket given. Pillow given. 14:28 Denny Merlos MD is Attending Physician. [facility] 14:39 Maria Victoria Tobias, RN is Primary Nurse. tw2 15:23 XRAY Chest (1 view) In Process Unspecified. EDMS 15:40 Inserted saline lock: 22 gauge in right antecubital area, using aseptic technique. tw2 Blood collected. 16:37 Yousuf Morrow MD is Hospitalizing Provider. [facility] 16:46 US Extremity Venous W Compression Kevon In Process Unspecified. EDMS 16:56 Awaiting: movement to dialysis room upstairs at this time. tw2 16:57 No provider procedures requiring assistance completed. Patient admitted, IV remains in tw2 place. Administered Medications: 17:04 Drug: Calcium Gluconate 1 grams {Note: per Dr. Merlos administer this when leaving tw2 for dialysis.} Route: IVPB; Infused Over: 60 mins; Site: right antecubital; 17:08 Follow up: IV Status: Infusion continued upon admission tw2 Outcome: 16:39 Decision to Hospitalize by Provider. [facility] 17:05 Admitted to accompanied by tech, via stretcher, Report called to MATTEO Farr tw2 17:05 Condition: stable 17:08 Patient left the ED. tw2 Signatures: Dispatcher [employer] EDCO Denny Merlos MD MD cha Sanford, Demi ds1 Maria Victoria Tobias, RN RN tw2 Bryant Tellez RN RN ll1 Corrections: (The following items were deleted from the chart) 12:50 12:46 Chief complaint: Patient states: RLE cellulitis just above R ankle. On ll1 antibiotics for 1 week, no improvement. L LE is starting to have pain, like the cellulitis is about to start on that extremity. No fever. ll1
[2020-12-01] MEDS ORDERED: ACETAMINOPHEN 500 MG TAB PO PRN (16:58)
[2020-12-01] MEDS ORDERED: HEPARIN 5000 UNIT/ML 1 ML VIAL SQ SCH (17:00)
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
[2020-12-01] MEDS ORDERED: CALCIUM GLUCONATE 1 GM IVPB 1 GM/50 ML BAG IV ONE (17:15)
[2020-12-01 17:28] VITALS: TEMP 97.1
[2020-12-01 17:30] VITALS: BP 149/77; O2SAT 99
[2020-12-01] MEDS ORDERED: METOPROLOL TAR 50 MG TAB PO SCH (21:00)
[2020-12-01] MEDS ORDERED: ROSUVASTATIN 10 MG TAB PO SCH (21:00)
--- NOTE | 2020-12-02 00:12 | P.SSS ---
Patient History Date of Service: 12/02/20 Reason for admission: hyperkalemia, ESRD needing dialysis. - Past Medical/Surgical History Diabetic: Yes -: HTN -: DM 2-diet controlled -: ESRD on hemodialysis Saturday -: Mechanical valve, on warfarin -: TURP -: Colonic mass removed -: nose surgery -: prostate surgery Psychosocial/ Personal History: Patient lives with his family - Social History Alcohol use: No CD- Drugs: No Caffeine use: Yes <Jeff East - Last Filed: 12/02/20 00:10> Date of Service: 12/02/20 <OdalysYousuf Ruy - Last Filed: 12/02/20 06:35> Allergies No Known Allergies Allergy (Verified 09/22/20 01:49) Home Medications: Amlodipine [Norvasc*] 10 mg PO DAILY 07/29/20 Lidocaine/Prilocaine [Lidocaine-Prilocaine Cream] 1 appl TOP M,W,F PRN 07/29/20 Metoprolol Tartrate 50 mg PO BID 07/29/20 Rosuvastatin [Crestor*] 20 mg PO BEDTIME 07/29/20 Tamsulosin HCl [Flomax] 0.4 mg PO DAILY 07/29/20 Warfarin Sodium 5 mg PO DAILY 07/29/20 Hydrocodone Bit/Acetaminophen [Hydrocodon-Acetaminoph 2.5-325] 2.5 - 325 mg PO DAILY 09/22/20 Review of Systems Unremarkable <Jeff East - Last Filed: 12/02/20 00:10> Physical Examination - Vital Signs Temperature: 97.1 F Blood Pressure: 149/77 Pulse: 52 Respirations: 16 - Physical Exam General: Alert, In no apparent distress HEENT: Atraumatic, PERRLA, Mucous membr. moist/pink, EOMI, Sclerae nonicteric Neck: Supple, 2+ carotid pulse no bruit, No LAD, Without JVD or thyroid abnormality Respiratory: Clear to auscultation bilaterally, Normal air movement Cardiovascular: Regular rate/rhythm, Normal S1 S2 Gastrointestinal: Normal bowel sounds, No tenderness Musculoskeletal: No tenderness Integumentary: No rashes Neurological: Normal gait, Normal speech, Normal strength at 5/5 x4 extr, Normal tone, Normal affect Lymphatics: No axilla or inguinal lymphadenopathy - Studies Laboratory Data (last 24 hrs) 12/01/20 16:30: Potassium Cancelled 12/01/20 15:40: PT 27.1 H, INR 2.34 12/01/20 15:40: WBC 7.80, Hgb 10.7 L, Hct 33.1 L, Plt Count 131 L 12/01/20 15:40: Sodium 134 L, Potassium 7.7 H*, BUN 113 H, Creatinine 11.20 H*, Glucose 96, Magnesium 3.2 H D, Total Bilirubin 0.7, AST 34, ALT 34, Alkaline Phosphatase 147 H, Lipase 102 <Jeff East - Last Filed: 12/02/20 00:10> - Studies Laboratory Data (last 24 hrs) 12/01/20 16:31: Potassium Cancelled 12/01/20 16:30: Potassium Cancelled 12/01/20 15:40: PT 27.1 H, INR 2.34 12/01/20 15:40: WBC 7.80, Hgb 10.7 L, Hct 33.1 L, Plt Count 131 L 12/01/20 15:40: Sodium 134 L, Potassium 7.7 H*, BUN 113 H, Creatinine 11.20 H*, Glucose 96, Magnesium 3.2 H D, Total Bilirubin 0.7, AST 34, ALT 34, Alkaline Phosphatase 147 H, Lipase 102 <Yousuf Morrow - Last Filed: 12/02/20 06:35> Treatment Summary: Patient was admitted for volume overload/hyperkalemia after missing dialysis. Patient's adult basic education teacher was consulted, dialysis was performed. After dialysis patient was feeling much better vital signs stable, no oxygen requirement. Patient has good follow up and is arrange for outpatient dialysis going forward. Will discharge this evening to follow up with primary care doctor in Nephrology on an outpatient basis. - Disposition Discharge Date: 12/01/20 Diet: Renal Activity: Fall precautions Critical Care: No Time Spent Managing Pts Care (In Minutes): 55 <Jeff East - Last Filed: 12/02/20 00:10> <Yousuf Morrow - Last Filed: 12/02/20 06:35> - Disposition Disposition: ROUTINE DISCHARGE Condition: GOOD Followup: OOT,OOT [Primary Care Provider] - Prvt As Needed
[2020-12-02] MEDS ORDERED: AMLODIPINE 10 MG TAB PO SCH (09:00)
[2020-12-02] MEDS ORDERED: TAMSULOSIN 0.4 MG SR CAP PO SCH (09:00)
[2020-12-02] MEDS ORDERED: WARFARIN SODIUM 2.5 MG TAB PO SCH (09:00)
--- NOTE | 2020-12-02 10:21 | RAD REPORT ---
EXAM DESCRIPTION: US - Extrem Venous W Compress Kevon - 12/02/2020 10:12 am CLINICAL HISTORY: Pain;Swelling Bilateral leg edema and swelling. COMPARISON: No comparisons TECHNIQUE: Real-time sonographic interrogation of the left and right lower extremity deep venous sys tems was performed. FINDINGS: Normal compressibility, flow augmentation, phasic flow and spontaneous flow is identified in both the left and right lower extremity deep venous systems. IMPRESSION: No sonographic evidence of left or right lower extremity deep venous thrombosis.
== END 2020-12-01 22:20 | disposition home or self-care (01) ==
LOC: ER 12:26
DX: E87.5 Hyperkalemia (principal); N18.6 End stage renal disease; I12.0 Hypertensive chronic kidney disease with stage 5 chronic kidney disease or end stage renal disease; R00.1 Bradycardia, unspecified; D63.1 Anemia in chronic kidney disease; E87.70 Fluid overload, unspecified; L03.115 Cellulitis of right lower limb; Z99.2 Dependence on renal dialysis; Z95.4 Presence of other heart-valve replacement; Z79.01 Long term (current) use of anticoagulants; Z95.1 Presence of aortocoronary bypass graft
CPT/HCPCS: 87040; 85025; 80048; 36415; 83735; 85610; 80076; 84484; 83690; 83880; 71045; 93970; 96374; 99285; J0610

== ENCOUNTER 2021-01-02 13:05 | Emergency (ER) | payer OTHER ==
--- OUTSIDE RECORDS SUMMARY | 2021-01-02 13:17 | XMS REPORT | Continuity of Care Document ---
:1945 Author Organization [facility] t Address [address] [place] [address] [place] [address] Care Team Providers Name Role Phone Flavio Mtz MD Primary Care Physician Yovani FELIPE Attending Clinician Paulette Attending Clinician Guillermina Shetty MD Attending Clinician Fany DAS P. Attending Clinician Rosalio DAS Attending Clinician Talia Hurtado MD Attending Clinician Mandie Ya MD Attending Clinician LaurasimiBill cuadra MD Attending Clinician George Valdez MD Attending Clinician Edna DAS Attending Clinician Branden DAS Attending Clinician Idris Law MD Attending Clinician Loren Arias MD Attending Clinician Unavailable Yefri TRUJILLO Attending Clinician Unavailable Zuri Platt Attending Clinician Marc Alicia Attending Clinician Terry Vaughn Attending Clinician Eliana Kapadia Attending Clinician Unavailable Tomas Danielson Attending Clinician Yissel Marcelo Attending Clinician [place] Attending Clinician ROSALIO Admitting Clinician Unavailable Terry Vaughn Admitting Clinician Yissel Marcelo Admitting Clinician [place] Admitting Clinician Payers Payer Name Policy Type Policy Effective Date Expiration Date Sour ce Number MEDICAREMEDICARE A [id number] 2009 LITA Miles rivas Janeypatricia [id number] 2008- 00:00:00 - Medical PresentMedicare Center HUMANA - MEDICARE MGD [id number] 2017 LITA Che [facility] MEDICARE 00:00:00 - Med ical [id number] 2017-P Ce nter resentMaps Contracted Problems Condition Condition Condition Status Onset Resolution Last Treating Co mments Source Name Details Category Date Date Treatment Clinician Date s/p ACB x4 s/p ACB x4 Disease Active 2019-[address] by 2-14 Mi - Diogenes on Diogenes on 00:00: Me dical 09/27/2020 09/27/2020 00 Ce nter Essential Essential Disease Active 2019-10 Overview: LITA hypertensi hypertensi 2-14 Data Janey kes - on on 00:00: migrated Medical 00 from [facility] [facility] on 03/12/15.D karolina migrated from [employer] [facility] on 03/12/15. End-stage End-stage Disease Active 2019-10 LITA Al renal renal 2-14 Mi - disease disease 00:00: Medical 00 Center URINARY Diagnosis Active 2018-102019-09-15 Me moria RETENTION 11-02 12:35:00 l URINARY 00:00: [place] RETENTION 00 Active 2019 [facility] S/P AVR/ Diagnosis Active 2018-12-08 M emoria SOB 2-21 15:19:00 l S/P AVR/ 00:00: [place] SOB 00 Active 12/04/2018 [facility] S/P AVR S/P AVR Disease Active [facility] - 00:[facility]: Medical 00 Center R14.0 Diagnosis Active 2018-10-30 Mem oria 1-11 14:43:00 l R14.0 00:00: [place] 00 Active 10/24/2018 [facility] NONRHEUMAT Diagnosis Active 2017-102018-11-20 Memoria IC AORTIC 2-20 05:24:00 l (VALVE) 00:00: [place] STENOSIS NONRHEUMAT 00 IC AORTIC (VALVE) STENOSIS Active 10/02/2018 [facility] Nonrheumat Nonrheumat Disease Active 2017-[address] ic aortic ic aortic 2-20 Luke s - (valve) (valve) 00:00: Medical stenosis stenosis 00 Center ESRD (end ESRD (end Disease Active [facility] stage stage 2-15 Methodi renal renal 00:00: st disease) disease) 00 on on dialysis dialysis Hyperlipid Hyperlipid Disease Active H toby emia emia 2-15 Methodi 00:00: st 00 Hypertensi Hypertensi Disease Active 2015-10 H toby on on 0-28 Methodi associated associated 00:00: st with with 00 chronic chronic kidney kidney disease disease due to due to type 2 type 2 diabetes diabetes mellitus mellitus BLADDER Diagnosis Active 2014-102015-08-29 Me moria NECK 1-13 10:45:00 l CONTRACTUR BLADDER 00:00: Her garza E-N32.0 NECK 00 CONTRACTUR E-N32.0 Active 08/26/2015 [facility] Malignant Problem Active 2020-10-28 Me moria tumor of 2-12 22:20:08 l prostate 00:00: [place] (disorder) Malignant 00 tumor of prostate (disorder) Active 11/25/2014 Problem 10/28/2020 Data migrated from [employer] on 04/20/15. Medical Group,[facility], OPID [place],[facility], [place] BENIGN Diagnosis Active 2015-04-20 Mem oria PROSTATIC 1-12 10:46:00 l HYPERTROPH BENIGN 00:00: Herm eliana Y WITH PROSTATIC 00 OBSTRU HYPERTROPH Y WITH OBSTRU Active 10/25/2014 [facility] BPH BPH Disease Active [facility] (benign (benign -12 [facility] - prostatic prostatic 00:00: Medi judith hyperplasi hyperplasi 00 Ce nter a) a) Benign Problem Active 2013-102020-10-28 Memor ia prostatic 0-28 22:20:08 l hypertroph Benign 00:00: Herm eliana with prostatic 00 outflow hypertroph obstructio with n outflow (disorder) obstructio n (disorder) Active 08/10/2014 Problem 10/28/2020 Data migrated from [employer] on 03/12/15. Medical Group,[facility], OPID [place],[facility] Finding of Problem Active 2013-102020-10-28 M emoria frequency 0-28 22:20:08 l of Finding 00:00: [place] urination of 00 (finding) frequency of urination (finding) Active 08/10/2014 Problem 10/28/2020 Data migrated from [employer] on 03/12/15. Medical Group,[facility], OPID [place],[facility] Glycosuria Problem Active 2013-102020-10-28 M emoria (finding) 0-28 22:20:08 l 00:00: [place] Glycosuria 00 (finding) Active 08/10/2014 Problem 10/28/2020 Data migrated from [employer] on 03/12/15. Medical Group,[facility], OPID [place],[facility] Microscopi Problem Active 2013-102020-10-28 M emoria c 0-28 22:20:08 l hematuria 00:00: [place] (disorder) Microscopi 00 c hematuria (disorder) Active 08/10/2014 Problem 10/28/2020 Data migrated from [employer] on 03/12/15. Medical Group,[facility], OPID [place],[facility] Type 2 Type 2 Disease Active Overview: [facility] diabetes diabetes 3-25 Data [facility] - mellitus mellitus 00:00: migrated Medi judith 00 from [facility] on 03/12/15. Metabolic Problem Active 2012-102020-10-28 Mo moria syndrome X 11-08 22:20:08 l (disorder) 00:00: [place] Metabolic 00 syndrome X (disorder) Active 09/08/2013 Problem 10/28/2020 Data migrated from [employer] on 03/12/15. Medical Group,[facility], OPID [place],[facility], [place] Mixed Problem Active 2020-10-28 Memor ia hyperlipid 02-17 22:20:08 l emia Mixed 00:00: [place] (disorder) hyperlipid 00 emia (disorder) Active 02/17/2013 Problem 10/28/2020 Data migrated from [employer] on 03/12/15. Medical [facility], OPID [place],[facility], [place] hyperlipid Problem Active 2009-102014-11-12 M emoria emia(Confi 11-06 09:07:21 l rmed) 00:00: [place] hyperlipid 00 emia(Confi rmed) Active 09/06/2010 Problem 11/12/2014 [place] hypertensi Problem Active 2009-102014-11-12 M emoria on(Confirm 11-06 09:07:21 l ed) 00:00: [place] hypertensi 00 on(Confirm ed) Active 09/06/2010 Problem 11/12/2014 [facility] Pure Pure Disease Active 2009-[address] [facility] hyperchole hyperchole 24 Janey kes - sterolemia sterolemia 00:00: Me dical Center Chest Problem 2019-04-21 Memor ia pain, 11:08:42 l unspecifie Chest Rebeca nn d pain, unspecifie d 04/21/2019 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 Atheroscle Problem 2019-04-21 M emoria rosis of 11:08:42 l aorta [place] Atheroscle rosis of aorta 04/21/2019 [facility] Other Problem 2019-04-21 Memor ia nonspecifi 11:08:42 l c abnormal Other Rebeca nn finding of nonspecifi lung field c abnormal finding of lung field 04/21/2019 [facility] Umbilical Problem 2019-04-21 Me moria hernia 11:08:42 l without [place] obstructio Umbilical n or hernia gangrene without obstructio n or gangrene 04/21/2019 [facility] Bilateral Problem 2019-04-21 Me moria inguinal 11:08:42 l hernia, [place] without Bilateral obstructio inguinal n or hernia, gangrene, without not obstructio specified n or as gangrene, recurrent not specified as recurrent 04/21/2019 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 Nicotine Problem 2019-04-21 Mem oria dependence 11:08:42 l , Nicotine [place] cigarettes dependence , , uncomplica cigarettes duane , uncomplica duane 04/21/2019 [facility] Acquired Problem 2019-04-21 Mem oria absence of 11:08:42 l other Acquired [place] specified absence of parts of other digestive specified tract parts of digestive tract 04/21/2019 [facility] Intestinal Problem 2019-04-21 M emoria bypass and 11:08:42 l anastomosi [place] s status Intestinal bypass and anastomosi s status 04/21/2019 [facility] Pupillary Problem 2017-07-17 Me moria abnormalit 04:01:45 l y, left [place] eye Pupillary abnormalit y, left eye 07/17/2017 [facility] Backache Problem Resolve 2020-10-28 Me moria (finding) d 22:20:08 l Backache [place] (finding) Resolved Problem 10/28/2020 Medical Group,[facility], OPID [place],[facility] Swelling Problem Resolve 2020-10-28 Me moria of lower d 22:20:08 l limb Swelling [place] (finding) of lower limb (finding) Resolved Problem 10/28/2020 Medical Group,[facility], OPID [place],[facility] Diabetes Problem Resolve 2020-10-28 Me moria mellitus d 22:20:08 l (disorder) Diabetes He rmann mellitus (disorder) Resolved Problem 10/28/2020 Medical Group,[facility] [place] Hypertensi Problem Active 2013-12-16 M emoria on 04:52:18 l [place] Hypertensi on Active Problem 4 [facility] Hyperlipem Problem Active 2013-12-16 M emoria ia 04:52:18 l [place] Hyperlipem ia Active Problem 4 [facility] Chronic Problem Active 2013-12-16 Jb zachray kidney 04:52:18 l disease, Chronic Rebeca nn stage III kidney disease, stage III Active Problem 12/16/2013 [facility] Acute Diagnosis Active 2013-07-14 Mem oria ethmoidal 04:23:16 l sinusitis Acute [place] ethmoidal sinusitis Active Diagnosis 07/14/2013 [facility] Chronic Problem Active 2020-10-28 Jb zachary back pain 22:20:08 l (disorder) Chronic Her garza back pain (disorder) Active Problem 10/28/2020 Medical Group,[facility], OPID [place],[facility] Chronic Problem Active 2020-10-28 Jb zachary renal 22:20:08 l impairment Chronic Her garza (disorder) renal impairment (disorder) Active Problem 10/28/2020 Medical Group,[facility], OPID [place],[facility] Chronic Problem Active 2020-10-28 Jb zachary kidney 22:20:08 l disease Chronic [place] stage 3 kidney (disorder) disease stage 3 (disorder) Active Problem 10/28/2020 Data migrated from [facility] on 03/12/15. Medical Group,[facility], OPID [place],[facility], [place] Hypertensi Problem Active 2020-10-28 M emoria ve 22:20:08 l disorder, [place] systemic Hypertensi arterial ve (disorder) disorder, systemic arterial (disorder) Active Problem 10/28/2020 Medical Group,[facility] ,[facility], OPID [place],[facility] Hypogonadi Problem Active 2020-10-28 M emoria sm 22:20:08 l (disorder) [place] Hypogonadi sm (disorder) Active Problem 10/28/2020 Data migrated from [employer] on 03/12/15. Medical Group,[facility], OPID [place],[facility], [place] Hypokalemi Problem Active 2020-10-28 M emoria a 22:20:08 l (disorder) [place] Hypokalemi a (disorder) Active Problem 10/28/2020 Medical Group,[facility], OPID [place],[facility], [place] Obesity Problem Active 2020-10-28 Jb zachary (disorder) 22:20:08 l Obesity [place] (disorder) Active Problem 10/28/2020 Data migrated from [employer] on 03/12/15. Medical Group,[facility], OPID [place],[facility], [place] Pain Problem Active 2020-10-28 Memor ia (finding) 22:20:08 l Pain [place] (finding) Active Problem 10/28/2020 Medical Group,[facility], OPID [place],[facility], [place] Renal Problem Active 2020-10-28 Memor ia failure 22:20:08 l syndrome Renal [place] (disorder) failure syndrome (disorder) Active Problem 10/28/2020 Medical Group,[facility], OPID [place],[facility], [place] Seasonal Problem Active 2020-10-28 Mem oria allergic 22:20:08 l rhinitis Seasonal Herm eliana (disorder) allergic rhinitis (disorder) Active Problem 10/28/2020 Medical Group,[facility], OPID [place],[facility], [place] Neoplasm Problem Active 2020-10-28 Mem oria of colon 22:20:08 l (disorder) Neoplasm He rmann of colon (disorder) Active Problem 10/28/2020 Medical Group,[facility], OPID [place],[facility], [place] Alteration Problem Active 2020-10-28 M emoria in 22:20:08 l patterns [place] of urinary Alteration eliminatio in n patterns (finding) of urinary eliminatio n (finding) Active Problem 10/28/2020 increased frequency Medical Group,[facility], OPID [place],[facility], [place] Cholestero Problem Active 2015-09-22 M emoria l 01:38:21 l (substance [place] ) Cholestero l (substance ) Active Problem 09/22/2015 OPID [place], [place] Retention Problem Active 2020-10-28 Me moria of urine 22:20:08 l (disorder) [place] Retention of urine (disorder) Active Problem 10/28/2020 Medical Group, [place] Urinary Problem Active 2020-10-28 Jb zachary tract 22:20:08 l infectious Urinary Her garza disease tract (disorder) infectious disease (disorder) Active Problem 10/28/2020 Medical Group, [place] Hyperchole Problem Active 2017-07-31 M emoria sterolemia 04:01:11 l (disorder) [place] Hyperchole sterolemia (disorder) Active Problem 07/31/2017 [facility] BPH W Diagnosis Active 2015-04-20 Mem oria URINARY 10:46:00 l OBS/LUTS BPH W [place] URINARY OBS/LUTS Active [facility] Lactic Lactic Disease Active [facility] acid acid [facility] - acidosis acidosis [facility] Vasodilata Vasodilata Disease Active [facility] tion tion [facility] Pulmonary Pulmonary Disease Active [facility] hypertensi hypertensi Janey kes - on on Medical Center Acute Acute Disease Active [facility] post-opera post-opera Janey kes - tive pain tive pain [facility] S/P CABG x S/P CABG x Disease Active [facility] 4 4 [facility] Acute Acute Disease Active [facility] respirator respirator Janey kes - y y Medical insufficie insufficie Ce nter ncy ncy Acute on Acute on Disease Active [facility] t chronic chronic [facility] - diastolic diastolic [facility] heart heart Center failure failure Acute Acute Disease Active [facility] renal renal [facility] - failure on failure on Mo dical dialysis dialysis Center History of Past Illness Condition Condition Condition Status Onset Resolution Last Treating Co mments Source Name Details Category Date Date Treatment Clinician Date Urinary Problem 2018-102019-09-04 2019-09-04 Memoria tract 1-20 23:46:10 23:46:10 l infection, Urinary 18:00: Her garza site not tract 00 specified infection, site not specified 2019 09/04/2019 [place] Retention Problem 2018-2019-09-04 2019-09-04 Memoria of urine, 11-02 23:46:10 23:46:10 l unspecifie 18:00: Gatito lowell d Retention 00 of urine, unspecifie d 2019 09/04/2019 [place] Abdominal Problem 2018-2019-05-20 2019-05-20 Memoria distension 11-05 11:17:50 11:17:50 l (gaseous) 05:03: [place] Abdominal 56 distension (gaseous) 11/05/2018 05/20/2019 [facility] Nonrheumat Problem 2017-102019-04-21 2019-04-21 Memoria ic aortic 12-08 11:08:42 11:08:42 l (valve) 04:16: [place] stenosis Nonrheumat 47 ic aortic (valve) stenosis 8 04/21/2019 [facility] Age-relate Problem 2016-102017-07-31 2017-07-31 Memoria d nuclear [...] DA Active U 2017-10 [facility] Allergie 10-21 [place] [facility] 00:00: [facility] 00 l [facility] Center No Known No Known Active Memori a Medicati Medicati l on on [place] Allergrigoberto Allergie s s Family History Family Member Diagnosis Comments Start Date Stop Date Source Natural father Heart failure [facility] Natural father Stomach cancer [facility] Natural mother Stroke [facility] Social History Social Habit Start Date Stop Date Quantity Comments Source History SDOH [facility] - Alcohol Std Drinks Medica l Center History SDOH [facility] - Alcohol Binge Medical [address] [facility] Sex Assigned At [facility] kes - Medical Center Tobacco use and 2020-09-29 2020-09-[address] Janey kes - exposure 00:00:00 00:00:00 Medical Center Alcohol intake 2020-09-29 2020-09-[address] Dottie es - 00:00:00 00:00:00 non-drinker of Medical Ce nter alcohol (finding) Social History 2019-12-03 2019-12-03 [facility] 19:19:36 19:19:36 History SDOH 2018-12-24 2018-12-[address] [facility] - Alcohol Frequency 00:00:00 00:00:00 [facility] Center Pets: 2013-05-12 2013-05-12 [facility] 00:00:00 00:00:00 Smoking Status Start Date Stop Date Source Never smoker [facility] edical [place] Medications Ordered Filled Start Stop Current Ordering [...] I St -acetaminop 2-28 tablet by Dottie neville (NORCO 00:00: mouth Medica l 5-325) 00 [...] 5mg Take [address] [facility] mg Tab -28 tablet (5 [facility] - tablet 00:00: mg total) Medica l 00 by mouth Center every night as needed. senna-docus 2019-10- Yes 1{tbl} Take [address] ate 2-10 10- tablet by [facility] - (SENOKOT S) 00:00: 23:59 mouth 2 Me dical 8.6-50 mg 00 :00 (two) Center per tablet times daily as needed for Constipati on. amLODIPine 2019-10- No 5mg Q.5D Take [address] (NORVASC) 5 -10 11- tablet (5 Janey kes - MG tablet 00:00: 23:59 mg total) Me dical 00 :00 by mouth 2 Center (two) times daily for 30 days. metoprolol 2019-10- No 12.5mg Q.5D Take 0.[address] tartrate -10 11- tablets [facility] - (LOPRESSOR) 00:00: 23:59 (12.5 mg M edical 25 MG 00 :00 total) by Center tablet mouth 2 (two) times daily for 30 days. bisacodyL 2019-10- No 5mg Take 1 [facility] t [...] for up to 7 days. aspirin 81 2019-10- No 81mg QD Take [address] MG EC 11-27 by mouth [facility] - tablet 18:15: 00:00 daily. Medical 44 :00 [place] warfarin 5 Yes 5 mg = 1 Mem oria mg oral 2-20 tab, PO, l tablet 19:18: Daily, # [place] 00 30 tab, 0 Refill(s) Cephalexin 2018-10 Yes 250 mg = 1 M emoria 250 MG Oral 27 cap, PO, l Capsule 16:46: BID, start Herm eliana [Keflex] 00 the day before scope procedure, X 3 day, # 6 cap, 0 Refill(s), Pharmacy: [id number] Ciprofloxac 2018-10 Yes 500 mg = 1 Memoria in 500 MG 1-21 tab, PO, l Oral Tablet 04:20: Q24H, X 7 H ermann [Cipro] 00 day, # 7 tab, 0 Refill(s) amLODIPine 2019- No [facility] (NORVASC) 3-10-10 [facility] - 10 MG 00:00: 00:00 Medical tablet 00 :00 [place] warfarin 2019- No [facility] (COUMADIN) 2-10-10 [facility] - 2 MG tablet 00:00: 00:00 Medic al 00 :00 [place] acetaminoph 2019- No [facility] en-codeine 2-10-10 [facility] - (TYLENOL 00:00: 00:00 Medical #3) 300-30 00 :00 [place] mg per tablet rosuvastati 2019- No [facility] n (CRESTOR) 2-10-10 [facility] - 20 MG 00:00: 00:00 Medical tablet 00 :00 [place] tamsulosin 2019- No [facility] (FLOMAX) 11-26 [facility] - 0.4 mg Cap 00:00: 00:00 Medica l 24 hr 00 :00 [place] capsule gabapentin 2019- No [facility] (NEURONTIN) 11-2614 [facility] - 100 MG 00:00: 00:00 Medical capsule 00 :00 [place] Warfarin No Notes: Merlyn 11-25 Nurse to l 20:20: ensure [place] 00 documentat ion of patient education per anticoagul ation policy. Avoid large intake of vitamin-K containing foods diet. (Same As: Coumadin) WASTE: F/P - P Waste Black; E - P Waste Black DME Yes See Merlyn Prescriptio 11-25 Instructio l n 16:05: ns, MISC, [place] 00 ONCE, Cardiac Rehab Phase II Dx: [...] PO, l oral tablet 16:05: Bedtime, # [place] 00 30 tab, 0 Refill(s) Aspirin 81 Yes 81 mg = 1 Me moria MG Chewable 2-12 tab, PO, l Tablet 16:05: Daily, # [place] 00 30 tab, 0 Refill(s) metoprolol Yes [...] Weight 116.534, kg, Start date: 11/25/18 9:00:00 PATIENT SERVICE REPRESENTATIVE, Duration: 30 day, Stop date: 12/24/18 9:00:00 [...] Black DME Yes See Merlyn Addition #1 2- Instructio l 17:32: ns, INR Therapeuti c level: INR 2-3, # 1 ea, 0 Refill(s) metoprolol No Notes: Memor ia extended 2-11 (Same as: l release 15:00: Toprol XL) May split tab, but do not crush. tramadol No Notes: Not Mem oria hydrochlori 211 to exceed l de 50 MG 12:48: 400mg/day. Her garza Oral Tablet 00 (Same As: Ultram) Warfarin No Notes: Merlyn 2-10 Nurse to l 23:00: ensure documentat ion of patient education per anticoagul ation policy. Avoid large intake of vitamin-K containing foods diet. WASTE: F/P - P Waste Black; E - P Waste Black (Same As: Coumadin) Warfarin No Notes: Memoria 2 Nurse to l 23:00: ensure [place] 00 documentat ion of patient education per anticoagul ation policy. Avoid large intake of vitamin-K containing foods diet. (Same As: Coumadin) WASTE: F/P - P Waste Black; E - P Waste Black Warfarin No Notes: Memoria 2 Nurse to l 23:00: ensure [place] documentat ion of patient education per anticoagul ation policy. Avoid large intake of vitamin-K containing foods diet. (Same As: Coumadin) WASTE: F/P - P Waste Black; E - P Waste Black colchicine No 0.6 mg, 1 Me moria 0.6 mg oral 11-21 tab, l tablet 23:00: Route: PO, Rebeca Drug form: TAB, BID, Dosing Weight 116.534, kg, Start date: 11/21/18 17:00:00 PATIENT SERVICE REPRESENTATIVE, Duration: 30 day, Stop date: 12/21/18 9:00:00 CDT Acetaminoph No Notes: Do M emoria en 300 MG / 11-21 not exceed l Codeine 12:38: 4gm/day of Herm acetaminop 30 MG Oral hen. Tablet (Same as: [Tylenol Tylenol with with Codeine #3] Codeine # 3) Warfarin No Notes: Memoria 2 Nurse to l 23:00: ensure [place] [...] 150 mg Product Wasted: ___ mg Metoprolol 0 No Notes: Memor ia 2-07 (Same as: l 14:39: Lopressor) [place] 00 Push over 2 minutes Lidocaine 2018-0 No Notes: Memori a Hydrochlori -06 (Same as: l de 10 MG/ML 18:04: Xylocaine) [place] Injectable Solution alfuzosin 0 No 10 mg, Memori a extended 11-19 Route: PO, l release 16:31: Daily, Dosing Weight 116.534, kg, Priority: NOW, Start date: 11/19/18 10:31:00 PATIENT SERVICE REPRESENTATIVE, Duration: 30 day, Stop date: 12/19/18 9:00:00 PATIENT SERVICE REPRESENTATIVE Fentanyl 2018-0 No Notes: Memoria 2-06 (Same as: l 16:21: Sublimaze) [place] 00 Preservat rajan free. Finasteride 0 No 5 mg, Memor ia 2- Route: PO, l 15:00: Drug form: [place] 00 TAB, Daily, Dosing Weight 116.534, kg, Start date: 11/19/18 9:00:00 PATIENT SERVICE REPRESENTATIVE, Duration: 30 day, Stop date: 12/18/18 9:00:00 PATIENT SERVICE REPRESENTATIVE Glucagon 0 No 1 mg, Memoria 2 Route: IM, l 13:58: Drug form: PDR/INJ, PRN, Dosing Weight 116.534, kg, PRN Blood Glucose Results, Start date: 11/19/18 7:58:00 PATIENT SERVICE REPRESENTATIVE, Duration: 30 day, Stop date: 12/19/18 7:57:00 PATIENT SERVICE REPRESENTATIVE Dextrose 0 No 25 gm, 50 Jb zachary 50% Syringe 2-06 mL, Route: l 13:58: IVP, Drug Form: INJ, Dosing Weight 116.534, kg, PRN, PRN Blood Glucose Results, Start date: 11/19/18 7:58:00 PATIENT SERVICE REPRESENTATIVE, Duration: 30 day, Stop date: 12/19/18 7:57:00 PATIENT SERVICE REPRESENTATIVE Insulin No Notes: Memoria Lispro 2-06 (Same as: l 13:58: Humalog ) [place] 00 Roll in palms of hands gently; Do not shake `vigorousl y. "Single Patient Use Only " WASTE: F/P - Black; E - Municipal Trash Bin Stable for 28 days at room temperatur e. Expires in days from ____Date heparin No Notes: Memoria additive 2-06 Total l 25,000 unit 13:04: Concentrat [place] [14 00 ion = 50 unit/kg/hr] unit/ ml + Premix Total Diluent volume = Sodium 500 ml Chloride Send Med 0.45% 500 Request 2 mL hours prior to next bag Colchicine No 0.6 mg, 1 Me moria 0.6 MG Oral 2-06 tab, l Tablet 03:00: Route: PO, Rebeca nn 00 Drug form: TAB, BID, Dosing Weight 116.534, kg, Start date: 11/18/18 21:00:00 PATIENT SERVICE REPRESENTATIVE, Duration: 30 day, Stop date: 12/18/18 17:00:00 PATIENT SERVICE REPRESENTATIVE sennosides, No Notes: Jb zachary SENIOR CARE 8.6 MG 2-06 (Same as: l Oral Tablet 03:00: Senokot) He rm atorvastati No Notes: Jb zachary n 2-06 (Same as: l 03:00: Lipitor) [place] heparin No Notes: Memoria sodium, 2-05 porcine l porcine 22:00: heparin [place] 2500 UNT/ML 00 Injectable Solution Cefazolin No Notes: Memori a 2-05 (Same as l 20:00: Ancef) [place] 00 Simethicone No Notes: Jb zachary 2-05 (Same as: l 19:00: Mylicon) Acetaminoph No Notes: Max Memoria en 2-05 acetaminop l 18:00: hen 4000 [place] 00 mg/day (4 gm/day). (Same as: Tylenol Extra Strength) Flomax No Notes: Memoria 2-05 (Same As: l 18:00: Flomax) [place] 00 "Do Not Crush" Finasteride No Notes: Jb zachary 2-05 (Same as: l 17:44: Proscar) [place] 00 "Do Not Crush" Women of childbeari ng age should not touch or handle broken tablets Oxycodone No Notes: Memori a Hydrochlori 2-05 (Same as: l de 5 MG 17:23: Roxicodone Herm eliana Oral Tablet 00 ) gabapentin No Notes: Memor ia 100 MG Oral 2-05 (Same as: l Capsule 17:22: Neurontin) Herm eliaan 00 pantoprazol No Notes: Jb zachary e 2-05 Tablet l 15:00: should not [place] 00 be chewed or crushed. (Same as: Protonix) Docusate No Notes: Memoria 2-05 (Same as: l 15:00: Colace) [place] 00 (Do Not Crush) Miralax No Notes: Memoria 2-05 Dissolve l 15:00: in 8 oz of [place] 00 water or juice. (Same as: Miralax) Mupirocin No 1 appl, Memor ia 0.02 MG/MG 2-05 Route: l Topical 15:00: NASAL, [place] Ointment 00 BID, Drug form: OINT, Start date: 11/18/18 9:00:00 PATIENT SERVICE REPRESENTATIVE, Duration: 5 day, Stop date: 11/22/18 17:00:00 PATIENT SERVICE REPRESENTATIVE Aspirin 81 No Notes: Do Me moria MG Chewable 2-05 not crush l Tablet 15:00: or chew. [place] 00 (Same As: Ecotrin) tramadol No Notes: Not Mem oria hydrochlori 2-05 to exceed l de 50 MG 14:00: 400mg/day. Her garza Oral Tablet 00 (Same As: Ultram) Oxycodone No Notes: Memori a Hydrochlori 2-05 (Same as: l de 5 MG 09:32: Roxicodone Herm eliana Oral Tablet 00 ) Ofirmev No Notes: Memoria 2-05 Infuse l 07:00: over 15 [place] 00 minutes Do not exceed 4gm/day of acetaminop hen MEDICATION WASTE Product Size: 1000 mg Product Wasted: ___ mg ocular No Notes: Memoria lubricant 2-05 (Same as: l 06:00: Lacri-Lube [place] 00 , Puralube, Duratears Naturale, Artificial Tears, and Tears Again ) Ofirmev No or = 50 Memori a 2-05 kg, Start l 06:00: date: [place] 00 11/18/18 0:00:00 PATIENT SERVICE REPRESENTATIVE, Duration: 1 day, Stop date: 11/18/18 18:00:00 PATIENT SERVICE REPRESENTATIVE albumin No Notes: Memoria human 5% 2-05 LOT#: l intravenous 05:26: [place] solution 00 ___ Mfg: WASTE: F/P - Red; E -Red (Same as: Albuminar) "blood product derivative " Sodium No 500 mL, Memoria Chloride 2-05 500 ml/hr, l 0.9% 05:23: Infuse [place] (Bolus) IV 00 Over: 1 hr, Route: IV, ONCE, Priority: STAT, Dosing Weight 116.534 kg, Start date: 11/17/18 23:23:00 PATIENT SERVICE REPRESENTATIVE, Stop date: 11/17/18 23:23:00 PATIENT SERVICE REPRESENTATIVE chlorhexidi No Notes: Jb zachary ne 2-05 (Same As: l gluconate 03:00: Peridex) Herm eliana 1.2 MG/ML 00 Mouthwash Insulin No Notes: Memoria regular 100 2-05 Final l unit + 01:36: Concentrat Rebeca nn 00 ion 1unit/1ml WASTE: F/P - Black; E - Municipal Trash Bin Dextrose No 12.5 gm, Memor ia 50% Syringe 2-05 25 mL, l 01:36: Route: [place] 00 IVP, Drug Form: INJ, Dosing Weight 116.534, kg, PRN, PRN Blood Glucose Results, Start date: 11/17/18 19:36:00 PATIENT SERVICE REPRESENTATIVE, Duration: 30 day, Stop date: 12/17/18 19:35:00 PATIENT SERVICE REPRESENTATIVE Ofirmev No Notes: Memoria 2-05 Infuse l 01:05: over 15 [place] 00 minutes Do not exceed 4gm/day of [...] Memoria 2-05 (Same as: l 00:43: Sublimaze) [place] 00 Preservat rajan free. Albuterol No Notes: Memori a 0.833 MG/ML 2-05 (Same as: l / 00:43: Duoneb) [place] Ipratropium 00 Fajardo 0.167 MG/ML Inhalant Solution [DuoNeb] Magnesium No 800 mg, Memor ia Oxide 2-05 Route: PO, l 00:26: PRN, [place] 00 Dosing Weight 116.534, kg, PRN Abnormal Lab Result, FOR ICU USE ONLY, Start date: 11/17/18 18:26:00 PATIENT SERVICE REPRESENTATIVE, Duration: 30 day, Stop date: 12/17/18 18:25:00 PATIENT SERVICE REPRESENTATIVE Calcium No 1 gm, Memoria Gluconate 2-05 Route: l 00:26: IVPB, PRN, [place] 00 Dosing Weight 116.534, kg, PRN Abnormal Lab Result, Start date: 11/17/18 18:26:00 PATIENT SERVICE REPRESENTATIVE, Duration: 30 day, Stop date: 12/17/18 18:25:00 PATIENT SERVICE REPRESENTATIVE, FOR ICU USE ONLY Calcium No 500 mg, Memoria Carbonate 2-05 Route: PO, l 500 MG 00:26: PRN, [place] Chewable 00 Dosing Tablet Weight 116.534, kg, PRN Abnormal Lab Result, FOR ICU USE ONLY, Start date: 11/17/18 18:26:00 PATIENT SERVICE REPRESENTATIVE, Duration: 30 day, Stop date: 12/17/18 18:25:00 PATIENT SERVICE REPRESENTATIVE potassium 2019-0 No 2 pkt, Memori a phosphate-s 2-05 Route: PO, l odium 00:26: Dosing [place] phosphate 00 Weight 250 mg-280 116.534, mg-160 mg kg, PRN, oral powder PRN for Abnormal reconstitut Lab ion Result, FOR ICU USE ONLY, Start date: 11/17/18 18:26:00 PATIENT SERVICE REPRESENTATIVE, Duration: 30 day, Stop date: 12/17/18 18:25:00 PATIENT SERVICE REPRESENTATIVE Magnesium 2019-0 No 2 gm, Memoria Sulfate 2-05 Route: l 00:26: IVPB, PRN, [place] 00 Dosing Weight 116.534, kg, PRN Abnormal Lab Result, Start date: 11/17/18 18:26:00 PATIENT SERVICE REPRESENTATIVE, Duration: 30 day, Stop date: 12/17/18 18:25:00 PATIENT SERVICE REPRESENTATIVE, FOR ICU USE ONLY potassium 2019-0 No 15 mmol, Jb zachary phosphate 2-05 Route: l 00:26: IVPB, PRN, Dosing Weight 116.534, kg, PRN Abnormal Lab Result, Start date: 11/17/18 18:26:00 PATIENT SERVICE REPRESENTATIVE, Duration: 30 day, Stop date: 12/17/18 18:25:00 PATIENT SERVICE REPRESENTATIVE, FOR ICU USE ONLY sodium 2019-0 No 15 mmol, Memoria phosphate 2-05 Route: l 00:26: IVPB, PRN, Dosing Weight 116.534, kg, PRN Abnormal Lab Result, Start date: 11/17/18 18:26:00 PATIENT SERVICE REPRESENTATIVE, Duration: 30 day, Stop date: 12/17/18 18:25:00 PATIENT SERVICE REPRESENTATIVE, FOR ICU USE ONLY Potassium 2019-0 No 20 mEq, Memor ia Chloride 2-05 Route: PO, l 00:26: Drug form: [place] ERTAB, PRN, Dosing Weight 116.534, kg, PRN Abnormal Lab Result, Start date: 11/17/18 18:26:00 PATIENT SERVICE REPRESENTATIVE, Duration: 30 day, Stop date: 12/17/18 18:25:00 PATIENT SERVICE REPRESENTATIVE, FOR ICU USE ONLY Stimate 2019-0 No Route: IV, Jb zachary (ANES) 4 2-04 Drug Form: l microgram 23:23: INJ, Start He rmann date: 11/17/18 17:23:00 PATIENT SERVICE REPRESENTATIVE, Stop date: 11/17/18 18:23:00 PATIENT SERVICE REPRESENTATIVE protamine 2019-0 No Route: IV, Me moria (ANES) 10 - Drug form: l mg 23:06: INJ, Start [place] 00 date: 11/17/18 17:06:00 PATIENT SERVICE REPRESENTATIVE, Stop date: 11/17/18 18:06:00 PATIENT SERVICE REPRESENTATIVE calcium 2019-0 No Route: IV, Jb zachary chloride 2- Drug form: l (ANES) 23:03: INJ, ONCE, Rebeca Stop date: 11/17/18 17:03:00 PATIENT SERVICE REPRESENTATIVE heparin 2019-0 No Route: IV, Jb zachary (ANES) 2- Drug form: l 21:08: INJ, ONCE, Stop date: 11/17/18 15:08:00 PATIENT SERVICE REPRESENTATIVE lidocaine 2019-0 No Route: IV, Me moria (ANES) 2- Drug form: l 21:03: INJ, ONCE, Stop date: 11/17/18 15:03:00 PATIENT SERVICE REPRESENTATIVE propofol 2019-0 No Route: IV, Mem oria (ANES) 2- Drug form: l 20:44: INJ, ONCE, Stop date: 11/17/18 14:44:00 PATIENT SERVICE REPRESENTATIVE fentaNYL 2019-0 No Route: IV, Mem oria (ANES) 2- Drug form: l 20:44: INJ, ONCE, Stop date: 11/17/18 14:44:00 PATIENT SERVICE REPRESENTATIVE rocuronium 2019-0 No Route: IV, M emoria (ANES) 2- Drug form: l 20:44: INJ, ONCE, Stop date: 11/17/18 14:44:00 PATIENT SERVICE REPRESENTATIVE midazolam 2019-0 No Route: IV, Me moria (ANES) 2- Drug form: l 20:44: SOLN, [place] 00 ONCE, Stop date: 11/17/18 14:44:00 PATIENT SERVICE REPRESENTATIVE ceFAZolin 2019-0 No Route: IV, Me moria (ANES) 2-04 Drug form: l 20:38: INJ, ONCE, Stop date: 11/17/18 14:38:00 PATIENT SERVICE REPRESENTATIVE norepinephr 2019-0 No Route: IV, Memoria ine (ANES) 2- Drug form: l 10 20:35: INJ, Start [place] microgram 00 date: 11/17/18 14:35:00 PATIENT SERVICE REPRESENTATIVE, Stop date: 11/17/18 15:35:00 PATIENT SERVICE REPRESENTATIVE vancomycin No Route: IV, Estrellita emoria (ANES) 1000 11-17 Drug form: l mg 20:05: INJ, Start [place] 00 date: 11/17/18 14:05:00 PATIENT SERVICE REPRESENTATIVE, Stop date: 11/17/18 15:05:00 PATIENT SERVICE REPRESENTATIVE tranexamic No Route: IV, Estrellita emoria acid (ANES) 2 Drug form: l 10 mg 20:00: INJ, Start [place] date: 11/17/18 14:00:00 PATIENT SERVICE REPRESENTATIVE, Stop date: 11/17/18 15:00:00 PATIENT SERVICE REPRESENTATIVE Exparel No Notes: Memoria 11-17 (Same as: l 20:00: Exparel) [place] 00 NOT FOR IV use Postoperat rajan [...] Lactated No Route: IV, Mem oria Ringers - Total l Injection 19:40: Volume: Rebeca nn IV (ANES) 00 500, Start 500 mL date: 11/17/18 13:40:00 PATIENT SERVICE REPRESENTATIVE, Stop date: 11/17/18 14:40:00 PATIENT SERVICE REPRESENTATIVE Isolyte S No Route: IV, Me moria PH 7.4 2- Total l (ANES) 1000 19:16: Volume: Her garza mL 00 1,000, Start date: 11/17/18 13:16:00 PATIENT SERVICE REPRESENTATIVE, Stop date: 11/17/18 14:16:00 PATIENT SERVICE REPRESENTATIVE Amylases No 1 cap, PO, Mem oria 69446 UNT / 2 TID, 0 l Endopeptida 17:00: Refill(s) [place] ermann [place] 45[address] 00 UNT / Lipase 56037 UNT Delayed Release Oral Capsule [Zenpep] rifaximin No 550 mg = 1 Me moria 550 MG Oral 2-01 tab, PO, l Tablet 17:00: BID, 0 [place] [XIFAXAN] 00 Refill(s) Lidocaine Yes 1 appl, Memor ia 25 MG/ML / 2-01 TOP, ONCE, l Prilocaine 17:00: # 30 gm, 0 H ermann 25 MG/ML 00 Refill(s) Topical Cream metoprolol 2020- No Q.5D 2 (two) [facility] ([facility]) -31 12-28 times [facility] - 50 MG 00:00: 00:00 daily. Medical tablet 00 :00 Center Levofloxaci No 250 mg = 1 Memoria n 250 MG 1-15 tab, PO, l Oral Tablet 20:39: Q48H, # 3 H ermann [Levaquin] 00 tab, 0 Refill(s), [facility] No 500 mg = 1 [...] Jb zachary 0-16 mL, l 17:55: Injection, [place] 00 IV, Once, first dose 07/29/17 12:55:00 CDT, stop date 07/29/17 12:55:00 CDT fentaNYL 2016-10 No 50 mcg = 1 Mem oria 0-16 mL, l 17:44: Injection, [place] 00 IV, Once, first dose 07/29/17 12:44:00 CDT, stop date 07/29/17 12:44:00 CDT midazolam 2016-10 No 1 mg = 1 Jb zachary 0-16 mL, l 17:43: Injection, [place] 00 IV, Once, first dose 07/29/17 12:43:00 CDT, stop date 07/29/17 12:43:00 CDT ondansetron 2016-10 No 4 mg = 2 Me moria 0-16 mL, l 17:43: Injection, [place] 00 IV, Once, first dose 07/29/17 12:43:00 CDT, stop date 07/29/17 12:43:00 CDT Ethyl 2016-10 No 1 sprays, Memoria Chloride 1 0-16 [place], l ML/ML 17:00: TOP, Once, [place] Topical 00 first dose [place] 07/29/17 12:00:00 CDT, stop date 07/29/17 12:00:00 CDT Povidone-Io 2016-10 No 1 drops, Me moria dine 50 0-16 Soln, l MG/ML 17:00: Eye-Operat [place] Ophthalmic 00 rajan, Once, Solution first dose [Betadine] 07/29/17 12:00:00 CDT, stop date 07/29/17 12:00:00 CDT LR 500 mL 2016-10 No 500 mL, Memor ia 0-16 IV, 100 l 16:55: mL/hr, [place] 00 start date 07/29/17 11:55:00 CDT, Adult Eye Procedures or Pain Phenylephri 2016-10 No 1 drops, Me moria ne 0-16 Soln, l Hydrochlori 16:55: Eye-Operat [place] de 25 MG/ML 00 rajan, [...] Jb zachary 0-02 mL, l 16:06: Injection, IV, Once, first dose 07/15/17 11:06:00 CDT, stop date 07/15/17 11:06:00 CDT fentaNYL 2016-10 No 50 mcg = 1 Mem oria 0-02 mL, l 16:06: Injection, [place] 00 IV, Once, first dose 07/15/17 11:06:00 CDT, stop date 07/15/17 11:06:00 CDT midazolam 2016-10 No 1 mg = 1 Jb zachary 0-02 mL, l 16:00: Injection, [place] 00 IV, Once, first dose 07/15/17 11:00:00 CDT, stop date 07/15/17 11:00:00 CDT fentaNYL 2016-10 No 50 mcg = 1 Mem oria 0-02 mL, l 16:00: Injection, [place] 00 IV, Once, first dose 07/15/17 11:00:00 CDT, stop date 07/15/17 11:00:00 CDT ondansetron 2016-10 No 4 mg = 2 Me moria 0-02 mL, l 16:00: Injection, [place] 00 IV, Once, first dose 07/15/17 11:00:00 CDT, stop date 07/15/17 11:00:00 CDT Ethyl 2016-10 No 1 sprays, Memoria Chloride 1 0-02 [place], l ML/ML 15:00: TOP, Once, [place] Topical 00 first dose [place] 07/15/17 10:00:00 CDT, stop date 07/15/17 10:00:00 [...] ia 0-02 IV, 100 l 14:44: mL/hr, [place] 00 start date 07/15/17 9:44:00 CDT, Adult Eye Procedures or Pain Lidocaine Yes joaquin, TOP, Mem oria Hydrochlori 9-30 TID, 0 l de 0.005 17:24: Refill(s) Herm eliana MG/MG 00 Topical Gel gabapentin Yes 300 mg = 1 M emoria 300 MG Oral 9-30 caps, l Capsule 17:24: Oral, [place] [Neurontin] 00 Daily, 0 Refill(s) finasteride 2017 Yes 5 mg = 1 Me moria 5 mg oral 9-30 tabs, l tablet 17:24: Oral, [place] 00 Daily, 0 Refill(s) Metoprolol 2017 Yes 50 mg, Memor ia 9-30 Oral, BID, l 17:23: 0 [place] 00 Refill(s) alfuzosin 2017 Yes 10 mg = 1 Mem oria 10 mg oral 9-30 tabs, l tablet, 17:23: Oral, [place] extended 00 Daily, 0 release Refill(s) Lovastatin 2017 Yes 10 mg, Memor ia 9-30 Oral, l 17:22: Daily, 0 [place] 00 Refill(s) amLODIPine Yes 10 mg = 1 Me moria 10 mg oral 9-30 tabs, l tablet 17:22: Oral, [place] 00 Daily, 0 Refill(s) rosuvastati 2015-10 Yes 10mg QD Take 10 [...] topically Methodi 15:43: daily. st 15 M-W-F metoprolol 2015-10 Yes 50mg Q.5D Take 50 [...] tori mg tablet 15:43: daily. st 15 Ondansetron 2014-10 No Notes: Jb zachary -16 (Same as: l 22:27: Zofran) [place] 00 MEDICATION WASTE Product Size: 4 mg [...] a -16 (Same as: l 22:27: Normodyne, [place] 00 Trandate) Push over 2 minutes Give bolus over 2-3 minutes. Acetaminoph 2014-10 No Notes: Jb zachary en 10-29 Infuse l 22:27: over 15 [place] 00 minutes Do not exceed 4gm/day of acetaminop hen MEDICATION WASTE Product Size: 1000 mg Product Wasted: ___ mg Naloxone 2014-10 No Notes: Memoria - Same as l 22:27: Narcan Flumazenil 2014-10 [...] Dilaudid) Oxycodone 2014-10 No Notes: Memori a - (Same as: l 22:27: Roxicodone ) Docusate 2014-10 Yes 100 mg = 1 Mem oria Sodium 100 -16 cap, PO, l MG Oral 21:20: BID, PRN [place] Capsule 00 Constipati [Colace] on, # 60 cap, 0 Refill(s) Ciprofloxac 2014-10 Yes 250 mg = 1 Memoria in 250 MG 1-16 tab, PO, l Oral Tablet 21:20: Q24H, # 7 H ermann [Cipro] 00 tab, 0 Refill(s) tramadol 2014-10 Yes 1 - 2 Memoria hydrochlori 1-16 tabs, PO, l de 50 MG 21:20: Q4-6H, PRN Her garza Oral Tablet 00 Pain Score [Ultram] 6-10, X 4 day, # 30 tab, 0 Refill(s) Acetaminoph 2014-10 No Notes: Jb zachary en 325 MG / 10-29 (Same as: l Hydrocodone 21:18: Moore Rebeca nn Bitartrate 00 325/5) Do 5 MG Oral not exceed Tablet 4gm/day of acetaminop hen. Morphine 2014-10 No Notes: Memoria -16 (Same l 21:18: as:MORPhin [place] 00 e Sulfate) Calcium 2014-10 No 1,000 mL, Memor ia Chloride 10-29 Rate: 25 l 0.0014 18:54: ml/hr, [place] MEQ/ML / 00 Infuse Potassium over: 40 Chloride hr, Route: 0.004 IV, Dosing MEQ/ML / Weight Sodium 118.182 Chloride kg, Total 0.103 Volume: MEQ/ML / 1,000, Sodium Start Lactate date: 0.028 08/29/15 MEQ/ML 12:54:00, Injectable Duration: Solution 30 day, Stop date: 09/28/15 12:53:00 BD Normal 2014-10 No Notes: Memori a Saline 10-29 (Same as: l Flush 12:00: BD [place] 00 Posiflush) Cipro 2014-10 No Notes: Do Memoria -16 not l 12:00: refrigerat [place] 00 e 168 HR 2014-10 Yes 1 patch, Memoria Clonidine -14 TOP, 0 l 0.98616 00:36: Refill(s) Rebeca nn MG/HR 00 Transdermal Patch Crestor 2014-10 Yes PO, Memoria 1-14 Bedtime, 0 l 00:35: Refill(s) [place] 00 ALFUZOSIN No ALFUZOSIN Mem oria ER 10MG TAB 11-10 ER 10MG l 00:00: TAB, 1 [place] [...] 11-09 Route: PO, l 15:00: Drug form: [place] 00 TAB, Daily, Dosing Weight 124.318, kg, [...] 13:27: Q12H, # 6 H ermann [Cipro] tab, 0 Refill(s) Phenazopyri Yes 200 mg = 1 Memoria dine 27 tab, PO, l hydrochlori 13:27: TID, # 9 He rmann de 200 MG 00 tab, 0 Oral Tablet Refill(s) [Pyridium] Docusate Yes 100 mg = 1 Mem oria Sodium 100 27 cap, PO, l MG Oral 13:27: BID, [place] Capsule 00 Constipati [Colace] on, # 20 cap, 0 Refill(s) tramadol Yes 1 - 2 Memoria hydrochlori -27 tabs, PO, l de 50 MG 13:27: Q4-6H, as Herm eliana Oral Tablet 00 needed for [Ultram] pain, # 30 tab, 0 Refill(s) Labetalol No Notes: Memori a 11-09 (Same as: l 05:26: Normodyne, [place] 00 Trandate) Push over 2 minutes Give bolus over 2-3 minutes. Hydralazine No Notes: Jb zachary 11-09 (Same as: l 05:26: Apresoline [place] ) Push over 5 minutes Famotidine No Notes: Memor ia 11-09 (Same as: l 03:00: Pepcid) [place] Ciprofloxac No Notes: Do M emoria in 10 MG/ML 11-09 not l Injectable 03:00: refrigerat H ermann Solution 00 e Pravachol No Notes: Memori a 11-09 (Same as: l 03:00: Pravachol) [place] 00 Docusate No Notes: Memoria Sodium 100 11-08 (Same as: l MG Oral 23:00: Colace) [place] Capsule 00 (Do Not Crush) Glipizide 5 No Notes: Jb zachary MG Oral - (Same as: l Tablet 23:00: Glucotrol) Rebeca nn 00 30 min before meals. montelukast No Notes: Jb zachary - (Same l 23:00: as:Singula [place] 00 ir) 10 ML No Notes: Memoria [...] tab, PO, l tablet 21:43: Daily, # [place] 00 30 tab, 0 Refill(s) alfuzosin Yes 10 mg = 1 Mem oria 10 mg oral 1-26 tab, PO, l tablet, 21:43: Daily, # [place] extended 00 30 tab, 0 release Refill(s) metoprolol Yes 50 mg = 1 Me moria tartrate 50 - tab, PO, l mg oral 21:43: Daily, [...] 1 Me moria n 4 MG Oral -26 tab, PO, l Tablet 21:43: Daily, 0 [...] Notes: Memoria 11-08 (Same l 17:04: as:MORPhin [place] 00 e Sulfate) acetaminoph No Notes: Do M emoria en-codeine 11-08 not exceed l #3 17:04: 4gm/day of acetaminop hen. (Same as: Tylenol with Codeine # 3) Calcium No 1,000 mL, Memor ia Chloride 11-08 Rate: 125 l 0.0014 17:04: ml/hr, [place] MEQ/ML / 00 Infuse Potassium over: 8 Chloride hr, Route: 0.004 IV, Dosing MEQ/ML / Weight Sodium 124.318 Chloride kg, Total 0.103 Volume: MEQ/ML / 1,000, Sodium Start Lactate date: 0.028 11/08/14 MEQ/ML 11:04:00, Injectable Duration: Solution 30 day, Stop date: 12/08/14 11:03:00 Ciprofloxac No 400 mg, Mem oria in 2 MG/ML 11-08 Route: l Injectable 14:00: IVPBGatito n Solution 00 [id number], [Cipro] Dosing Weight 127.136, kg, Start date: 11/08/14 8:00:00, Duration: 30 day, Stop date: 12/07/14 20:00:00 Calcium No 1,000 mL, Memor ia Chloride 11-08 Rate: 25 l 0.0014 13:46: ml/hr, [place] MEQ/ML / 00 Infuse Potassium over: 40 Chloride hr, Route: 0.004 IV, Dosing MEQ/ML / Weight Sodium 127.136 Chloride kg, Total 0.103 Volume: MEQ/ML / 1,000, Sodium Start Lactate date: 0.028 11/08/14 MEQ/ML 7:46:00, Injectable Duration: Solution 1 doses or times, Stop date: 11/09/14 23:45:00 Levaquin No Notes: Memoria 11-08 (Same l 12:00: as:Levaqui n) BD No Notes: Memoria Posiflush 11-08 [...] 1 tab(s) Memoria 2-27 CHRYSTAL l 04:54: [place] 21 spironolact 2012-10 Yes MARIAA 1 tab(s) Memoria one 0-01 CHRYSTAL l 04:23: [place] 16 benazepril 2012-10 Yes MARIAA 1 tab(s) Memoria 0-01 CHRYSTAL l 04:23: [place] 16 metoprolol 2012-10 Yes MARIAA 1 tab(s) Memoria 0-01 CHRYSTAL l 04:23: [place] 16 Aspir 81 2012-10 Yes MARIAA 1 tab(s) Me moria 0-01 CHRYSTAL l 04:23: [place] 16 Pravastatin Yes MARIAA 1 tab(s) Memoria Sodium 7-30 CHRYSTAL l 00:00: [place] 00 losartan Yes MARIAA 1 tab(s) Me moria 1-17 CHRYSTAL l 00:00: [place] 00 Livalo No MARIAA 1 tab(s) Jb zachary 1-17 CHRYSTAL l 00:00: [place] 00 Vital Signs Vital Name Observation Time Observation Value Comments Source Systolic blood 2020-10-25 12:46:00 124 mm[Hg] [facility] Diastolic blood 2020-10-25 12:46:00 58 mm[Hg] [facility] Heart rate 2020-10-25 12:46:00 54 /min [facility] Body temperature 2020-10-25 12:46:00 35.94 Anya [facility] Respiratory rate 2020-10-25 12:46:00 14 /min [facility] Body height 2020-10-25 12:46:00 185.4 cm [facility] Body weight 2020-10-25 12:46:00 101.606 kg [facility] BMI 2020-10-25 12:46:00 29.55 kg/m2 [facility] Oxygen saturation in 2020-10-25 12:46:00 97 /min [facility] Arterial blood by Medical Ce nter Pulse oximetry Systolic (mm Hg) 2019-12-03 19:04:00 Jb rial [place] Diastolic (mm Hg) 2019-12-03 19:04:00 Mem orial [place] Heart Rate 2019-12-03 19:04:00 [facility] Temperature Oral (F) 2019-12-03 19:04:00 97.6 F [facility] Height 2019-12-03 19:04:00 182.88 cm [facility] Weight 2019-12-03 19:04:00 [facility] [place] BMI Calculated 2019-12-03 19:04:00 Memori al [place] Systolic (mm Hg) 2019-10-01 15:58:00 Jb rial [place] Diastolic (mm Hg) 2019-10-01 15:58:00 Mem orial [place] Heart Rate 2019-10-01 15:58:00 [facility] [place] Height 2019-10-01 15:58:00 182.88 cm [facility] [place] Weight 2019-10-01 15:58:00 [facility] [place] BMI Calculated 2019-10-01 15:58:00 Memori al [place] Systolic (mm Hg) 2019-09-09 16:21:00 Jb rial [place] Diastolic (mm Hg) 2019-09-09 16:21:00 Mem orial [place] Heart Rate 2019-09-09 16:21:00 [facility] [place] Height 2019-09-09 16:21:00 185.42 cm [facility] [place] Weight 2019-09-09 16:21:00 [facility] [place] BMI Calculated 2019-09-09 16:21:00 Memori al [place] Systolic (mm Hg) 2019-09-07 19:07:00 Jb rial [place] Diastolic (mm Hg) 2019-09-07 19:07:00 Mem orial [place] Heart Rate 2019-09-07 19:07:00 [facility] [place] Temperature Oral (F) 2019-09-07 19:07:00 97.3 F [facility] [place] Height 2019-09-07 19:07:00 185.42 cm [facility] [place] Weight 2019-09-07 19:07:00 [facility] [place] BMI Calculated 2019-09-07 19:07:00 Memori al [place] Temperature Oral (F) 2019-09-03 04:58:00 98.0 F [facility] Heart Rate 2019-09-03 04:58:00 [facility] Respitory Rate 2019-09-03 04:58:00 [facility] Systolic (mm Hg) 2019-09-03 04:58:00 [facility] [place] Diastolic (mm Hg) 2019-09-03 04:58:00 [facility] [place] Systolic (mm Hg) 2019-09-03 01:32:00 [facility] [place] Diastolic (mm Hg) 2019-09-03 01:32:00 [facility] Heart Rate 2019-09-03 01:32:00 [facility] [place] Respitory Rate 2019-09-03 01:32:00 [facility] Temperature Oral (F) 2019-09-03 01:32:00 98.1 F [facility] Weight 2019-09-03 01:32:00 [facility] [place] Systolic (mm Hg) 2019-08-06 15:18:00 [facility] [place] Diastolic (mm Hg) 2019-08-06 15:18:00 [facility] [place] Heart Rate 2019-08-06 15:18:00 [facility] Temperature Oral (F) 2019-08-06 15:18:00 98.2 F [facility] [place] Systolic (mm Hg) 2019-07-28 15:44:00 [facility] [place] Diastolic (mm Hg) 2019-07-28 15:44:00 [facility] [place] Heart Rate 2019-07-28 15:44:00 [facility] Height 2019-07-28 15:44:00 182.88 cm [facility] Weight 2019-07-28 15:44:00 [facility] BMI Calculated 2019-07-28 15:44:00 [facility] [place] Temperature Oral (F) 2019-07-28 15:44:00 97.5 F [facility] BMI Calculated 2018-12-08 14:41:00 [facility] Weight 2018-12-08 14:41:00 [facility] Height 2018-12-08 14:41:00 185.42 cm [facility] Systolic (mm Hg) 2018-11-25 19:00:00 [facility] [place] Diastolic (mm Hg) 2018-11-25 19:00:00 [facility] [place] Respitory Rate 2018-11-25 19:00:00 [facility] [place] Systolic (mm Hg) 2018-11-25 18:30:00 [facility] [place] Diastolic (mm Hg) 2018-11-25 18:30:00 [facility] [place] Respitory Rate 2018-11-25 18:30:00 [facility] Temperature Oral (F) 2018-11-25 18:30:00 97.6 F [facility] Systolic (mm Hg) 2018-11-25 18:00:00 [facility] [place] Diastolic (mm Hg) 2018-11-25 18:00:00 [facility] [place] Respitory Rate 2018-11-25 18:00:00 [facility] Temperature Oral (F) 2018-11-25 15:00:00 97.8 F [facility] Temperature Oral (F) 2018-11-25 06:00:00 97.7 F [facility] Height 2018-11-18 01:21:00 182.88 cm [facility] Height 2018-11-18 00:44:00 182.88 cm [facility] Weight 2018-11-17 17:18:00 [facility] Height 2018-11-17 17:18:00 182.88 cm [facility] BMI Calculated 2018-11-17 17:18:00 [facility] Weight 2018-11-14 15:44:00 [facility] BMI Calculated 2018-11-14 15:44:00 [facility] [place] BMI Calculated 2018-10-30 21:00:00 [facility] Weight 2018-10-30 21:00:00 [facility] Height 2018-10-30 21:00:00 185.42 cm [facility] Height 2018-10-28 19:21:00 185.42 cm [facility] BMI Calculated 2018-10-28 19:21:00 [facility] [place] Weight 2018-10-28 19:21:00 [facility] Systolic (mm Hg) 2018-10-01 17:58:00 [facility] [place] Diastolic (mm Hg) 2018-10-01 17:58:00 [facility] BMI Calculated 2018-10-01 14:33:00 [facility] Weight 2018-10-01 14:33:00 [facility] Height 2018-10-01 14:33:00 185.42 cm [facility] Temperature Oral (F) 2018-02-11 18:26:00 98.3 F [facility] Heart Rate 2018-02-11 18:26:00 [facility] Systolic (mm Hg) 2018-02-11 18:26:00 [facility] Diastolic (mm Hg) 2018-02-11 18:26:00 [facility] Systolic (mm Hg) 2017-07-29 18:05:00 [facility] [place] Diastolic (mm Hg) 2017-07-29 18:05:00 [facility] Respitory Rate 2017-07-29 18:05:00 [facility] Heart Rate 2017-07-29 18:05:00 [facility] Temperature Oral (F) 2017-07-29 18:05:00 36.7 Anya [facility] Height 2017-07-29 16:49:00 182.42 cm [facility] Respitory Rate 2017-07-29 16:49:00 [facility] Temperature Oral (F) 2017-07-29 16:49:00 36.4 Anya [facility] Systolic (mm Hg) 2017-07-29 16:49:00 [facility] [place] Diastolic (mm Hg) 2017-07-29 16:49:00 [facility] Height 2017-07-27 22:25:00 182.42 cm [facility] Systolic (mm Hg) 2017-07-15 16:30:00 [facility] [place] Diastolic (mm Hg) 2017-07-15 16:30:00 [facility] [place] Heart Rate 2017-07-15 16:30:00 [facility] Respitory Rate 2017-07-15 16:30:00 [facility] [place] Systolic (mm Hg) 2017-07-15 14:47:00 [facility] Diastolic (mm Hg) 2017-07-15 14:47:00 [facility] [place] Respitory Rate 2017-07-15 14:47:00 [facility] Temperature Oral (F) 2017-07-15 14:47:00 36.1 Anya [facility] Height 2017-07-15 14:47:00 182.42 cm [facility] Systolic (mm Hg) 2015-08-29 22:30:00 [facility] [place] Diastolic (mm Hg) 2015-08-29 22:30:00 [facility] Respitory Rate 2015-08-29 22:30:00 [facility] [place] Respitory Rate 2015-08-29 22:15:00 [facility] Systolic (mm Hg) 2015-08-29 22:15:00 [facility] Diastolic (mm Hg) 2015-08-29 22:15:00 [facility] Systolic (mm Hg) 2015-08-29 22:00:00 [facility] [place] Diastolic (mm Hg) 2015-08-29 22:00:00 [facility] [place] Respitory Rate 2015-08-29 22:00:00 [facility] Heart Rate 2015-08-29 19:00:00 [facility] Weight 2015-08-29 18:40:00 [facility] BMI Calculated 2015-08-29 18:40:00 [facility] Height 2015-08-27 00:28:00 185.42 cm [facility] Temperature Oral (F) 2014-11-10 17:28:00 98.2 F [facility] Heart Rate 2014-11-10 17:28:00 [facility] Respitory Rate 2014-11-10 17:28:00 [facility] Diastolic (mm Hg) 2014-11-10 17:28:00 [facility] [place] Systolic (mm Hg) 2014-11-10 17:28:00 [facility] [place] Temperature Oral (F) 2014-11-10 13:41:00 98.0 F [facility] Heart Rate 2014-11-10 13:41:00 [facility] Respitory Rate 2014-11-10 13:41:00 [facility] Systolic (mm Hg) 2014-11-10 13:41:00 [facility] Diastolic (mm Hg) 2014-11-10 13:41:00 [facility] Heart Rate 2014-11-10 10:42:00 [facility] Respitory Rate 2014-11-10 10:42:00 [facility] Diastolic (mm Hg) 2014-11-10 10:42:00 [facility] [place] Systolic (mm Hg) 2014-11-10 10:42:00 [facility] Temperature Oral (F) 2014-11-10 10:42:00 98.1 F [facility] Height 2014-11-08 22:55:00 185.42 cm [facility] BMI Calculated 2014-11-08 22:55:00 [facility] Weight 2014-11-08 22:55:00 [facility] Weight 2014-11-08 13:50:00 [facility] BMI Calculated 2014-11-08 13:50:00 [facility] Height 2014-11-01 16:36:00 185.42 cm [facility] Temperature Oral (F) 2013-05-12 17:30:00 96.8 F [facility] Weight 2013-05-12 17:30:00 [facility] Respitory Rate 2013-05-12 17:30:00 [facility] Heart Rate 2013-05-12 17:30:00 [facility] Diastolic (mm Hg) 2013-05-12 17:30:00 [facility] Systolic (mm Hg) 2013-05-12 17:30:00 [facility] [place] Temperature Oral (F) 2013-05-12 16:30:00 96.8 F [facility] Weight 2013-05-12 16:30:00 [facility] Respitory Rate 2013-05-12 16:30:00 [facility] [place] Heart Rate 2013-05-12 16:30:00 [facility] Diastolic (mm Hg) 2013-05-12 16:30:00 [facility] [place] Systolic (mm Hg) 2013-05-12 16:30:00 [facility] [place] Procedures Procedure Date / Time Performing Clinician Source Performed CBC W/PLT COUNT & AUTO 2020-10-10 16:21:00 [facility] BASIC METABOLIC PANEL (7) 2020-10-10 16:21:00 ERICA Bishop I [facility] PROTHROMBIN TIME/INR 2020-10-10 16:21:00 [facility] HEMODIALYSIS INPATIENT 2020-10-10 12:01:32 Verenice Romero [facility] PROTHROMBIN TIME/INR 2020-10-08 16:06:00 [facility] POCT-GLUCOSE METER 2020-10-07 10:28:00 [facility] HEMODIALYSIS INPATIENT 2020-10-07 09:12:40 Tameka Cruz [facility] CBC (HEMOGRAM ONLY) 2020-10-07 05:20:00 Krissy Mo [facility] PROTHROMBIN TIME/INR 2020-10-07 05:20:00 Krissy Mo [facility] BASIC METABOLIC PANEL (7) 2020-10-07 05:20:00 ERICA Bishop I [facility] MAGNESIUM 2020-10-07 [facility] (7[facility] 2020-10-06 06:55:00 [facility] MAGN[facility]IUM 2020-10-06 06:55:00 Krissy Mo [facility] PHOSPHORUS 2020-10-06 06:55:00 Krissy Mo [facility] CBC (HEMOGRAM ONLY) 2020-10-06 06:55:00 Krissy Mo [facility] PROTHROMBIN TIME/INR 2020-10-06 06:55:00 Krissy Mo [facility] APTT 2020-10-06 06:55:00 [facility] APTT 2020-10-06 00:10:00 [facility] SARS-COV2/RT-PCR (HS & REF 2020-10-05 21:57:00 Krissy Mo [facility] LABS) [facility] POCT-GLUCOSE METER 2020-10-05 17:38:00 [facility] HEMODIALYSIS INPATIENT 2020-10-05 15:03:51 Audra Ann [facility] BASIC METABOLIC PANEL (7) 2020-10-05 05:02:00 Krissy Mo [facility] MAGNESIUM 2020-10-05 05:02:00 Krissy Mo [facility] PHOSPHORUS 2020-10-05 05:02:00 Krissy Mo [facility] IRON, TIBC, % SAT. (WITHOUT 2020-10-05 05:02:00 Walter Ann [facility] FERRITIN) [facility] FERRITIN 2020-10-05 05:02:00 Audra Ann [facility] PTH, INTACT 2020-10-05 05:02:00 Audra Ann [facility] CBC (HEMOGRAM ONLY) 2020-10-05 05:02:00 Krissy Mo [facility] PROTHROMBIN TIME/INR 2020-10-05 05:02:00 Krissy Mo [facility] APTT 2020-10-05 05:02:00 Krissy Mo [facility] OXYGEN SATURATION, MEASURED 2020-10-05 04:43:00 Selin Zuniga [facility] OXYGEN SATURATION, MEASURED 2020-10-04 20:50:00 Johnny Malone [facility] APTT 2020-10-04 20:50:00 Krissy Mo [facility] POCT-GLUCOSE METER 2020-10-04 18:16:00 Kumar Valdez [facility] OXYGEN SATURATION, MEASURED 2020-10-04 12:27:00 Whit Newsome [facility] APTT 2020-10-04 12:27:00 Krissy Mo [facility] POCT-GLUCOSE METER 2020-10-04 12:11:00 Kumar Valdez [facility] OXYGEN SATURATION, MEASURED 2020-10-04 05:30:00 Sonia Ramos [facility] OXYGEN SATURATION, MEASURED 2020-10-04 03:16:00 Selin Zuniga [facility] BASIC METABOLIC PANEL (7) 2020-10-04 03:16:00 Krissy [facility] MAGNESIUM 2020-10-04 03:16:00 Krissy oM [facility] PHOSPHORUS 2020-10-04 03:16:00 Krissy Mo [facility] CBC (HEMOGRAM ONLY) 2020-10-04 03:16:00 Krissy Mo [facility] PROTHROMBIN TIME/INR 2020-10-04 03:16:00 Krissy Mo [facility] APTT 2020-10-04 03:16:00 Krissy Mo [facility] HEMODIALYSIS INPATIENT 2020-10-04 00:10:00 Verenice Romero [facility] APTT 2020-10-03 20:15:00 Krissy Mo [facility] POCT-GLUCOSE METER 2020-10-03 17:34:00 Kumar Valdez [facility] 2D ECHO W/ DOPPLER 2020-10-03 12:56:55 Selin Zuniga [facility] (CW/PW/COLOR) [facility] OXYGEN SATURATION, MEASURED 2020-10-03 11:50:00 Selin Zuniga [facility] PLATELET COUNT 2020-10-03 11:50:00 Selin Zuniga [facility] APTT 2020-10-03 11:50:00 Selin Zuniga [facility] POCT-GLUCOSE METER 2020-10-03 11:14:00 Kumar Valdez [facility] XR CHEST 1 VIEW 2020-10-03 07:35:00 Kumar Valdez [facility] PORTABLE/BEDSIDE [facility] [place] BASIC METABOLIC PANEL (7) 2020-10-03 04:36:00 Leann Burr [facility] CBC (HEMOGRAM ONLY) 2020-10-03 04:36:00 Danae Shane Arturo [facility] MAGNESIUM 2020-10-03 04:36:00 Danae Shane Arturo [facility] PHOSPHORUS 2020-10-03 04:36:00 Danae Shane [facility] POCT-GLUCOSE METER 2020-10-02 17:04:[address] [facility] POCT-GLUCOSE METER 2020-10-02 11:36:[address] [facility] POCT-GLUCOSE METER 2020-10-02 08:11:[address] [facility] CALCIUM, IONIZED 2020-10-02 04:43:00 Paul Quigley [facility] PH, ARTERIAL 2020-10-02 04:42:00 Danae Shane [facility] CBC (HEMOGRAM ONLY) 2020-10-02 04:41:00 Danae Shane Arturo [facility] MAGNESIUM 2020-10-02 04:41:00 Fink Acosta, [facility] PHOSPHORUS 2020-10-02 04:41:00 Danae Shane [facility] PT/APTT 2020-10-02 04:41:00 Karthikeyan Vigil [facility] BASIC METABOLIC PANEL (7) 2020-10-02 04:41:00 Paul Quigley [facility] BASIC METABOLIC PANEL (7) 2020-10-02 00:44:00 Paul Quigley [facility] CALCIUM, IONIZED 2020-10-02 00:44:00 Paul Quigley [facility] XR CHEST 1 VIEW 2020-10-02 00:42:00 Karthikeyan Vigil [facility] PORTABLE/BEDSIDE [facility] CALCIUM, IONIZED 2020-10-01 18:05:00 Honorio Cramer [facility] BASIC METABOLIC PANEL (7) 2020-10-01 18:05:00 Paul Quigley [facility] MAGNESIUM 2020-10-01 18:05:00 Danae Shane [facility] PH, ARTERIAL 2020-10-01 18:05:00 Danae Shane [facility] PHOSPHORUS 2020-10-01 18:05:00 Danae Shane [facility] THROMBOELASTOGRAPH (TEG) 2020-10-01 12:04:00 Julia Cerna a [facility] POTASSIUM 2020-10-01 10:48:00 Danae Shane [facility] MAGNESIUM 2020-10-01 10:48:00 Danae Shane [facility] PH, ARTERIAL 2020-10-01 10:48:00 Danae Shane [facility] PHOSPHORUS 2020-10-01 10:48:00 Danae Shane [facility] SODIUM 2020-10-01 10:48:00 Danae Shane Arturo [facility] CALCIUM, IONIZED 2020-10-01 10:48:00 Honorio Cramer [facility] PT/APTT 2020-10-01 10:48:00 Selin Zuniga [facility] BASIC METABOLIC PANEL (7) 2020-10-01 04:00:00 Leann Burr [facility] CBC (HEMOGRAM ONLY) 2020-10-01 04:00:00 Danae Shane [facility] MAGNESIUM 2020-10-01 04:00:00 Danae Shane [facility] OXYGEN SATURATION, MEASURED 2020-10-01 04:00:00 Karthikeyan Vigil [facility] PHOSPHORUS 2020-10-01 04:00:00 Danae Shane [facility] HEPATIC FUNCTION PANEL 2020-10-01 04:00:00 [facility] LACTATE DEHYDROGENASE (LDH) 2020-10-01 04:00:00 Kumar Valdez Che [facility] PT/APTT 2020-10-01 04:00:00 [facility] LACTIC ACID, ARTERIAL 2020-10-01 04:00:00 Kumar Valdez [facility] FIBRINOGEN 2020-10-01 04:00:00 Kumar Valdez [facility] XR CHEST 1 VIEW 2020-10-01 00:31:00 Karthikeyan Vigil [facility] PH, ARTERIAL 2020-10-01 00:22:00 Danae Shane [facility] POTASSIUM 2020-10-01 00:22:00 Danae Shane [facility] POCT-GLUCOSE METER 2020-10-01 00:20:[address] [facility] POTASSIUM 2020-09-30 20:56:00 Danae Shane [facility] MAGNESIUM 2020-09-30 20:56:00 Danae Shane [facility] PHOSPHORUS 2020-09-30 20:56:00 Danae Shane, [facility] SODIUM 2020-09-30 20:56:00 Danae Shane [facility] CALCIUM, IONIZED 2020-09-30 20:56:00 Shoaib Honorio Ramey [facility] POTASSIUM 2020-09-30 15:10:00 Danae Shane [facility] MAGNESIUM 2020-09-30 15:10:00 Danae Shane [facility] PH, ARTERIAL 2020-09-30 15:10:00 Danae Shane [facility] PHOSPHORUS 2020-09-30 15:10:00 Danae Shane [facility] SODIUM 2020-09-30 15:10:00 Danae Shane [facility] CALCIUM, IONIZED 2020-09-30 15:10:00 Alexandr Cramertiny Ramey [facility] POCT-GLUCOSE METER 2020-09-30 11:50:[address] [facility] APTT 2020-09-30 02:53:00 Lori Gustafson [facility] BASIC METABOLIC PANEL (7) 2020-09-30 02:53:00 Danae Shane [facility] CBC (HEMOGRAM ONLY) 2020-09-30 02:53:00 Danae Shane [facility] MAGNESIUM 2020-09-30 02:53:00 Danae Shane [facility] OXYGEN SATURATION, MEASURED 2020-09-30 02:53:00 Karthikeyan Vigil [facility] PHOSPHORUS 2020-09-30 02:53:00 Danae Shane [facility] BLOOD GAS, ARTERIAL 2020-09-30 02:53:00 [facility]an [facility]igil [facility]ST 1 VIEW 2020-09-30 00:35:00 Karthikeyan Vigil [facility]IDE [facility] POTASSIUM 2020-09-29 23:25:00 Danae Shane [facility] CALCIUM, IONIZED 2020-09-29 23:25:00 Honorio Cramer [facility] MAGNESIUM 2020-09-29 23:25:00 Krissy Mo [facility] POCT-GLUCOSE METER 2020-09-29 23:25:[address] [facility] ECG 12-LEAD 2020-09-29 20:37:31 Unknown, Hl7 Doctor [facility] POTASSIUM 2020-09-29 19:40:00 Danae Shane [facility] MAGNESIUM 2020-09-29 19:40:00 Danae Shane [facility] PHOSPHORUS 2020-09-29 19:40:00 Danae Shane [facility] SODIUM 2020-09-29 19:40:00 Danae Shane [facility] POCT-GLUCOSE METER 2020-09-29 19:39:[address] [facility] POCT-GLUCOSE METER 2020-09-29 18:13:[address] [facility] POTASSIUM 2020-09-29 16:39:00 Danae Shane [facility] CALCIUM, IONIZED 2020-09-29 16:39:00 Honorio Cramer [facility] POCT-GLUCOSE METER 2020-09-29 16:38:[address] [facility] BLOOD GAS, ARTERIAL 2020-09-29 14:57:00 Arturo Burr [facility] SODIUM NA-STAT LAB 2020-09-29 14:57:00 Diogenes [facility] POTASSIUM-STAT LAB 2020-09-29 14:57:00 Diogenes [facility] GLUCOSE-STAT LAB 2020-09-29 14:57:00 Diogenes [facility] HGB/HCT (H&H) - STAT LAB 2020-09-29 14:57:00 Diogenes [facility] POTASSIUM 2020-09-29 11:46:00 Danae Shane [facility] POCT-GLUCOSE METER 2020-09-29 11:45:[address] [facility] POCT-GLUCOSE METER 2020-09-29 10:27:[address] [facility] POTASSIUM 2020-09-29 07:58:00 Danae Shane [facility] MAGNESIUM 2020-09-29 07:58:00 Danae Shane [facility] PH, ARTERIAL 2020-09-29 07:58:00 Danae Shane [facility] PHOSPHORUS 2020-09-29 07:58:00 Danae Shane [facility] SODIUM 2020-09-29 07:58:00 Danae Shane [facility] CALCIUM, IONIZED 2020-09-29 07:58:00 Honorio Cramer [facility] POCT-GLUCOSE METER 2020-09-29 05:37:[address] [facility] POCT-GLUCOSE METER 2020-09-29 04:45:[address] [facility] PROTHROMBIN TIME/INR 2020-09-29 03:21:00 Humera Hurtado [facility] APTT 2020-09-29 03:21:00 Lori Gustafson [facility] BASIC METABOLIC PANEL (7) 2020-09-29 03:21:00 Danae Shane Leann glen [facility] CBC (HEMOGRAM ONLY) 2020-09-29 03:21:00 Danae Shane [facility] MAGNESIUM 2020-09-29 03:21:00 Danae Shane [facility] OXYGEN SATURATION, MEASURED 2020-09-29 03:21:00 Karthikeyan Vigil ere [facility] PHOSPHORUS 2020-09-29 03:21:00 Danae Shane [facility] LACTIC ACID, ARTERIAL 2020-09-29 03:21:00 [facility], [facility] 2020-09-29 03:21:00 Danae Shane [facility] SODIUM NA-STAT LAB 2020-09-29 03:21:00 Diogenes, [facility] POTASSIUM-STAT LAB 2020-09-29 03:21:00 Diogenes, [facility] GLUCOSE-STAT LAB 2020-09-29 03:21:00 Diogenes, [facility] HGB/HCT (H&H) - STAT LAB 2020-09-29 03:21:00 Diogenes, [facility] HEPATIC FUNCTION PANEL 2020-09-29 03:21:00 Allison Ojeda [facility] XR CHEST 1 VIEW 2020-09-29 00:58:00 [facility] POCT-GLUCOSE METER 2020-09-29 00:04:[address] [facility] POTASSIUM 2020-09-29 00:01:00 Danae Shane [facility] CALCIUM, IONIZED 2020-09-29 00:01:00 Honorio Cramer [facility] PREPARE PLASMA 2020-09-28 23:54:00 Diogenes, Linda [facility] PREPARE RBC 2020-09-28 23:54:00 Linda Shetty [facility] PREPARE PLATELETS 2020-09-28 23:54:00 Linda Shetty [facility] PREPARE CRYOPRECIPITATE 2020-09-28 23:54:00 Diogenes [facility] POCT-GLUCOSE METER 2020-09-28 20:05:[address] [facility] SARS-COV2/RT-PCR (HS & REF 2020-09-28 20:01:00 Krissy Mo [facility] POTASSIUM 2020-09-28 20:01:00 Danae Shane [facility] MAGNESIUM 2020-09-28 20:01:00 Danae Shane [facility] PH, ARTERIAL 2020-09-28 20:01:00 Danae Shane [facility] PHOSPHORUS 2020-09-28 20:01:00 Danae Shane [facility] SODIUM 2020-09-28 20:01:00 Danae Shane [facility] XR CHEST 1 VIEW 2020-09-28 19:05:00 Sarath Arias [facility] - PORTABLE/BEDSIDE [facility] POCT-GLUCOSE METER 2020-09-28 18:03:[address] [facility] POCT-GLUCOSE METER 2020-09-28 17:01:[address] [facility] POTASSIUM 2020-09-28 15:58:00 Danae Shane [facility] CALCIUM, IONIZED 2020-09-28 15:58:00 Honorio Cramer [facility] LACTIC ACID, ARTERIAL 2020-09-28 15:58:00 Selin Zuniga [facility] POCT-GLUCOSE METER 2020-09-28 15:57:[address] [facility] POCT-GLUCOSE METER 2020-09-28 15:10:00 Chilo [facility] POCT-GLUCOSE METER 2020-09-28 14:06:00 Chilo [facility] POCT-GLUCOSE METER 2020-09-28 12:01:00 Chilo [facility] POTASSIUM 2020-09-28 11:58:00 Arturo Burr [facility] LACTIC ACID, ARTERIAL 2020-09-28 11:58:00 Selin Zuniga [facility] POCT-GLUCOSE METER 2020-09-28 10:17:[facility] 2D ECHO W/ DOPPLER 2020-09-28 10:17:00 Humera Hurtado [facility] (CW/PW/COLOR) [facility] POCT-GLUCOSE METER 2020-09-28 09:16:00 [facility] CALCIUM, IONIZED 2020-09-28 08:01:00 Honorio Cramer [facility] POCT-GLUCOSE METER 2020-09-28 08:00:[address] [facility] XR CHEST 1 VIEW 2020-09-28 07:30:00 Selin Zuniga [facility] - PORTABLE/BEDSIDE [facility] POCT-GLUCOSE METER 2020-09-28 06:54:00 Josef Ya [facility] POCT-GLUCOSE METER 2020-09-28 06:20:00 FeltonIndiagood [facility] POCT-GLUCOSE METER 2020-09-28 05:14:00 FeltonIndiagood [facility] CBC (HEMOGRAM ONLY) 2020-09-28 04:08:00 Humera Hurtado [facility] BASIC METABOLIC PANEL (7) 2020-09-28 04:08:00 Humera Hurtado [facility] PHOSPHORUS 2020-09-28 04:08:00 Bryant Humera [facility] MAGNESIUM 2020-09-28 04:08:00 Bryant [facility] PROTHROMBIN TIME/INR 2020-09-28 04:08:00 Bryant [facility] OXYGEN SATURATION, MEASURED 2020-09-28 04:08:00 Janay [facility]barbara [facility]LO[facility], ARTERIAL 2020-09-28 04:08:00 [facility] 2020-09-28 04:08:00 Lori Gustafson [facility] SODIUM NA-STAT LAB 2020-09-28 04:08:00 Janay, [facility]barbara [facility] POT[facility] 2020-09-28 04:08:00 [facility] GL[facility] 2020-09-28 04:08:00 Lori Gustafson Gisella [facility] HGB/HCT (H&H) - STAT LAB 2020-09-28 04:08:00 Lori Gustafsonbarbara [facility] APTT 2020-09-28 04:08:00 [facility]LO[facility], ARTERIAL 2020-09-28 02:37:00 Janay, Agustinarianbarbara Wayarp [facility] LACTIC ACID, ARTERIAL 2020-09-28 02:37:00 Janay[facility] NA-STAT LAB 2020-09-28 02:37:00 Janay, Tanmdbarbara [facility] POTASSIUM-STAT LAB 2020-09-28 02:37:00 Janay[facility] GLU[facility]SE-[facility] 2020-09-28 02:37:00 JanayLori [facility] HGB/HCT (H&H) - STAT LAB 2020-09-28 02:37:00 JanayLori cuadraa rp [facility] CALCIUM, IONIZED 2020-09-28 02:37:00 JanayEvelinee Polycarp [facility] XR CHEST 1 VIEW 2020-09-28 01:42:00 Thi Albarran [facility] PORTABLE/BEDSIDE [facility] BLOOD GAS, ARTERIAL 2020-09-27 23:59:00 Janay, Lori Polycarp [facility] LACTIC ACID, ARTERIAL 2020-09-27 23:59:00 [facility] SODIUM NA-STAT LAB 2020-09-27 23:59:00 JanayAgustinmdbarbara [facility] POT[facility]-STAT LAB 2020-09-27 23:59:00 Janay, Agustinmdbarbara [facility] GLU[facility]SE-STAT LAB 2020-09-27 23:59:00 Janay, [facility]mdbar[facility] - [facility] 2020-09-27 23:59:00 JanayLori cuadraa rp [facility] XR CHEST 1 VIEW 2020-09-27 23:06:00 Drake Smith [facility] PORTABLE/BEDSIDE [facility] GLUCOSE 2020-09-27 21:47:00 JanayLori Polycarp [facility] POTASSIUM 2020-09-27 21:47:00 Janay, [facility] BLOOD [facility], ARTERIAL 2020-09-27 21:47:00 JanayLori Polycarp [facility] CALCIUM, IONIZED 2020-09-27 21:47:00 [facility]ERIAL 2020-09-27 21:47:00 [facility] SODIUM NA-STAT LAB 2020-09-27 21:47:00 Janay, [facility] - [facility] LAB 2020-09-27 21:47:00 Lori Gustafsona rp [facility] HEPATITIS B SURFACE ANTIGEN 2020-09-27 21:47:00 Geri Tran [facility] XR CHEST 1 VIEW 2020-09-27 19:57:00 Thi Albarran [facility] - PORTABLE/BEDSIDE [facility] LACTIC ACID, ARTERIAL 2020-09-27 19:54:00 Lori Gustafson Polycarp [facility] BLOOD GAS, ARTERIAL 2020-09-27 19:52:00 [facility] CBC W/PLT COUNT & AUTO 2020-09-27 19:52:00 Lori Gustafsonarp [facility] (CELLAVISION MANUAL DIFF) 2020-09-27 19:52:00 Lori Gustafson geraldo [facility] TROPONIN I 2020-09-27 19:50:00 Humera Hurtado [facility] BASIC METABOLIC PANEL (7) 2020-09-27 19:50:00 Thi Albarran lla [facility] MAGNESIUM 2020-09-27 19:50:00 [facility] PHOSPHORUS 2020-09-27 19:50:00 Thi Albarran [facility] PROTHROMBIN TIME/INR 2020-09-27 19:50:00 Lori Gustafsonarp [facility] APTT 2020-09-27 19:50:00 Lori Gustafson Polycarp [facility] FIBRINOGEN 2020-09-27 19:50:00 Lori Gustafson Polycarp [facility] THROMBOELASTOGRAPH (TEG) 2020-09-27 19:50:00 Lori Gustafson Polyca rp [facility] OXYGEN SATURATION, MEASURED 2020-09-27 19:50:00 Lori Gustafson Sylvain ycarp [facility] TRANSFUSE PLASMA 2020-09-27 18:54:55 Branden [facility] CALCIUM, IONIZED 2020-09-27 18:50:16 [facility]LO[facility] ARTERIAL 2020-09-27 18:50[facility] 2020-09-27 18:50[facility]16 [facility] 2020-09-27 18:50:16 Branden [facility] GLUCOSE-STAT LAB 2020-09-27 18:50:16 [facility] (H&H) - STAT LAB 2020-09-27 18:50:16 [facility] CRYOPRECIPITATE 2020-09-27 18:31:56 Branden [facility] TRANSFUSE CRYOPRECIPITATE 2020-09-27 18:26:54 Branden [facility] TRANSFUSE LEUKO-REDUCED 2020-09-27 18:20:27 Branden [facility] PLATELETS [facility] TRANSFUSE LEUKO-REDUCED RED 2020-09-27 18:16:01 Arvin Chaidez [facility] BLOOD CELLS [facility] TRANSFUSE LEUKO-REDUCED 2020-09-27 18:14:17 [facility] ANESTHESIA GAMALIEL 2020-09-27 18:10:14 Branden [facility] POCT-ACT 2020-09-27 18:03:00 Josef Ya [facility] PROTHROMBIN TIME/INR 2020-09-27 17:57:04 Branden [facility] APTT 2020-09-27 17:57:04 [facility] FIBRINOGEN 2020-09-27 17:57:04 [facility] PLATELET COUNT 2020-09-27 17:57:04 [facility] BLOOD GAS, ARTERIAL 2020-09-27 17:57:04 [facility]CI[facility], ION[facility]ED 2020-09-27 17:57:04 [facility] SODIUM NA-STAT LAB 2020-09-27 17:57:04 [facility] POTASSIUM-[facility] 2020-09-27 17:57:04 [facility] GLU[facility]SE-[facility] 2020-09-27 17:57:04 [facility] H[facility]/H[facility] (H&H) - STAT LAB 2020-09-27 17:57:04 [facility] CBC W/PLT COUNT & AUTO 2020-09-27 17:57:00 Deion Elbajonatan Deweybarbara [facility] TRANSFUSE LEUKO-REDUCED RED 2020-09-27 17:44:13 Arvin Chaidez [facility] BLOOD CELLS [facility] TRANSFUSE PLASMA 2020-09-27 17:38:18 [facility] BLOOD GAS, ARTERIAL 2020-09-27 17:33:55 Branden [facility] CALCIUM, IONIZED 2020-09-27 17:33:55 [facility] SODIUM NA-STAT LAB 2020-09-27 17:33:55 [facility] POTASSIUM-STAT LAB 2020-09-27 17:33:55 [facility] GLUCOSE-STAT [facility] 2020-09-27 17:33:55 [facility] HGB/HCT (H&H) - STAT LAB 2020-09-27 17:33:55 [facility] POCT-ACT 2020-09-27 16:51:00 Joesf Ya [facility] BLOOD GAS, ARTERIAL 2020-09-27 16:48:00 Arturo Burr [facility] SODIUM NA-STAT LAB 2020-09-27 16:48:00 Diogenes [facility] POTASSIUM-STAT LAB 2020-09-27 16:48:00 Diogenes [facility] GLUCOSE-STAT LAB 2020-09-27 16:48:00 Diogenes [facility] HGB/HCT (H&H) - STAT LAB 2020-09-27 16:48:00 Dioegnes [facility] POCT-ACT 2020-09-27 16:12:00 Felton [facility] BLOOD GAS, ARTERIAL 2020-09-27 16:10:03 Danae Shane [facility] SODIUM NA-STAT LAB 2020-09-27 16:10:03 Diogenes [facility] POTASSIUM-STAT LAB 2020-09-27 16:10:03 Diogenes [facility] GLUCOSE-STAT LAB 2020-09-27 16:10:[facility] - STAT LAB 2020-09-27 16:10:03 Diogenes [facility] POCT-ACT 2020-09-27 15:43:00 Felton [facility] BLOOD GAS, ARTERIAL 2020-09-27 15:40:33 Danae Shane [facility] SODIUM NA-STAT LAB 2020-09-27 15:40:33 [facility] 2020-09-27 15:40:33 [facility] 2020-09-27 15:40:33 [facility] (H&H) - STAT LAB 2020-09-27 15:40:33 Diogenes [facility] POCT-ACT 2020-09-27 15:14:00 [facility] BLOOD GAS, ARTERIAL 2020-09-27 15:11:58 Danae Shane [facility] SODIUM NA-STAT LAB 2020-09-27 15:11:58 Diogenes [facility] POTASSIUM-STAT LAB 2020-09-27 15:11:58 Diogenes [facility] GLUCOSE-STAT LAB 2020-09-27 15:11:58 Diogenes [facility] HGB/HCT (H&H) - STAT LAB 2020-09-27 15:11:58 Diogenes [facility] POCT-ACT 2020-09-27 14:54:00 Josef Ya [facility] BLOOD GAS, ARTERIAL 2020-09-27 14:32:15 [facility] CALCIUM, IONIZED 2020-09-27 14:32:15 [facility] SODIUM NA-STAT LAB 2020-09-27 14:32:15 [facility] POTASSIUM-STAT LAB 2020-09-27 14:32:15 [facility] GLUCOSE-STAT LAB 2020-09-27 14:32:15 [facility] HGB/HCT (H&H) - STAT LAB 2020-09-27 14:32:15 [facility] TRANSFUSE LEUKO-REDUCED RED 2020-09-27 13:45:01 [facility] TRANSFUSE LEUKO-REDUCED RED 2020-09-27 13:45:00 [facility] BLOOD GAS, ARTERIAL 2020-09-27 13:09:26 [facility] CALCIUM, IONIZED 2020-09-27 13:09:26 [facility] SODIUM NA-STAT LAB 2020-09-27 13:09:26 [facility] POTASSIUM-STAT LAB 2020-09-27 13:09:26 [facility] GLUCOSE-STAT LAB 2020-09-27 13:09:26 [facility] HGB/HCT (H&H) - STAT LAB 2020-09-27 13:09:26 [facility] ABORH, MANUAL 2020-09-27 12:06:00 Radha Mccall [facility] BYPASS,AORTO CORONARY 2020-09-27 12:03:00 DiogenesLinda silverman [facility] LUCAS/SVG [facility] ENDOSCOPIC HARVEST,VEIN 2020-09-27 12:03:00 Diogenes [facility] GAMALIEL,3D 2020-09-27 12:03:00 Diogenes, [facility] TROPONIN I 2020-09-27 11:52:00 [facility] HEMOGLOBIN A1C 2020-09-27 11:52:00 Allison Ojeda [facility] APTT 2020-09-27 11:52:[address] [facility] TYPE AND SCREEN, AUTOMATED 2020-09-27 11:52:00 Allison Ojeda [facility] POCT-GLUCOSE METER 2020-09-27 11:00:00 [facility] IABP INSERTION MCR - IP 2020-09-27 08:49:[address] [facility] POCT-GLUCOSE METER 2020-09-27 08:13:00 [facility] CBC (HEMOGRAM ONLY) 2020-09-27 05:05:00 [facility] BASIC METABOLIC PANEL (7) 2020-09-27 05:05:00 [facility] PHOSPHORUS 2020-09-27 05:05:00 [facility] MAGNESIUM 2020-09-27 05:05:00 [facility] TROPONIN I 2020-09-27 05:05:00 [facility] B-TYPE NATRIURETIC FACTOR 2020-09-27 05:05:00 [facility] - [facility] PROTHROMBIN TIME/INR 2020-09-27 05:05:00 Humera Hurtado [facility] APTT 2020-09-27 05:05:00 Chepe Krissy B [facility] LIPID PANEL 2020-09-27 05:05:00 Allison Ojeda [facility] XR CHEST 1 VIEW 2020-09-27 02:48:00 Humera Hurtado [facility] - PORTABLE/BEDSIDE [facility] POCT-GLUCOSE METER 2020-09-26 21:43:00 Northern CambriaHumera [facility] ECG 12-LEAD 2020-09-26 20:49:47 Humera Hurtado [facility] APTT 2020-09-26 20:42:[address] [facility] CBC W/PLT COUNT & AUTO 2020-09-26 20:41:00 Humera Hurtado [facility] COMPREHENSIVE METABOLIC 2020-09-26 20:41:[address] [facility] MAGNESIUM 2020-09-26 20:41:00 Humera Hurtado [facility] PHOSPHORUS 2020-09-26 20:41:00 BryantHumera [facility] POCT-GLUCOSE METER 2020-09-26 18:05:00 Rosalio [facility] VASCULAR DIAGRAM -SCAN 2020-09-26 00:00:00 Provider, Default [facility] CARDIAC CATH REPORT - SCAN 2020-09-26 00:00:00 Provider, Default [facility] REPORT OF PROCEDURE - 2020-09-26 00:00:00 Provider, Default [facility] ENDOSCOPY [facility] Measurement of post-voiding 2019-12-03 19:40:00 [facility] residual urine and/or bladder capacity by ultrasound, non-imaging Cystourethroscopy (separate 2019-10-01 16:30:00 [facility] procedure) Transurethral resection of 2015-08-29 06:00:00 [facility] prostate Operation on prostate 2014-10-14 06:00:00 [facility] Colon operation<sup>1</sup> 2009-10-14 06:00:00 [facility] Appendectomy [facility] Cholecystectomy [facility] Operation [facility] AV - Aortic valve operation Jb [facility] Bilateral extraction of [facility] cataracts Colectomy [facility] Fistula [facility] arm [facility] cataract surgery [facility] Plan [facility] Care Planned Activity Planned Date Details Comments Source Future Scheduled 2021-03-[address] [facility] - Test 00:00:00 measurement [facility] (procedure) [code = 72275222] Future Scheduled 2020-10-[address] [facility] - Test 00:00:00 (12+) [code = Medical Center DEPRESSION SCREENING (12+)] Future Scheduled 2020-06-14 INFLUENZA VACCINE (#1) [facility] 00:00:00 [code = INFLUENZA Medical Ce nter VACCINE (#1)] Future Scheduled 2020-05-14 INFLUENZA VACCINE [place] [facility] Test 00:00:00 [code = INFLUENZA VACCINE] Future Scheduled 2010-08-[address] [facility] - Test 00:00:00 WELLNESS (YEAR 2 or Medical Center FIRST YEAR if no IPPE) [code = MEDICARE ANNUAL WELLNESS (YEAR 2 or FIRST YEAR if no IPPE)] Future Scheduled 2009 65+ PNEUMOCOCCAL [place] [facility] Test 00:00:00 VACCINE (1 of 1 - PPSV23) [code = 65+ PNEUMOCOCCAL VACCINE (1 of 1 - PPSV23)] Future Scheduled 1994 SHINGLES VACCINES ([address] [facility] - Test 00:00:00 of 2) [code = SHINGLES Medic al Center VACCINES (1 of 2)] Future Scheduled 1994 COLONOSCOPY SCREENING Ho [facility] Test 00:00:00 [code = COLONOSCOPY SCREENING] Future Scheduled 1994 SHINGLES VACCINES (#1) [place] [facility] Test 00:00:00 [code = SHINGLES VACCINES (#1)] Future Scheduled 1963 DTAP/TDAP/TD [facility]ACCINES [facility] Test 00:00:00 (1 - Tdap) [code = Medical C enter DTAP/TDAP/TD VACCINES (1 - Tdap)] Future Scheduled 1962 HEPATITIS C SCRE[facility]ING [facility] Test 00:00:00 [code = HEPATITIS C Medical Center SCREENING] Future Scheduled 1960 COVID-19 VACCINE (1 of [place] [facility] Test 00:00:00 2) [code = COVID-19 VACCINE (1 of 2)] Future Scheduled 1954 DIABETIC EYE EXAM [facility] - Test 00:00:00 [code = DIABETIC EYE Medical Center EXAM] Future Scheduled [address] [facility] - Test 00:00:00 examination Medical Center (regime/therapy) [code = 683150148] Future Scheduled 1954 Urine screening for [facility] - Test 00:00:00 protein (procedure) Medical Center [code = 280391945] Encounters Start End Encounter Admission Attending Care Care Encounter Source Date/Time Date/Time Type Type Clinicians Facility Department ID 2020-10-26 2020-10-26 Outpatient Miguel Caldwell [facility] [id number] 09:15:00 09:15:00 28 2020-09-22 2020-09-22 Outpatient Miguel Caldwell [facility] [id number] 09:15:00 09:15:00 26 2020-08-08 2020-08-08 Outpatient Paulette Miguel [facility] [id number] 11:00:00 11:00:00 22 2019-12-03 2019-12-03 Outpatient Miguel Caldwell [facility] [id number] 13:45:00 23:59:59 27 2019-11-03 2019-11-03 Outpatient Miguel Caldwell [facility] [id number] 13:45:00 13:45:00 19 2019-10-01 2019-10-01 Outpatient Miguel Caldwell [facility] [id number] 10:30:00 23:59:59 24 2019-09-09 2019-09-09 Outpatient Lc [facility] [id number] 11:00:00 23:59:59 Mallory Keating 25 2019-09-07 2019-09-07 Outpatient Lc [facility] [id number] 13:15:00 23:59:59 Mallory Keating 23 2019 2019 Outpatient Ravin, MHSL MHSL [id number] 19:09:24 23:00:00 Rolf Tran 2019 2019 Emergency E [facility]FB MHFB [id number] MHFB 19:09:00 19:09:00 2019-08-06 2019-08-06 Outpatient Miguel Caldwell [facility] [id number] 11:00:00 23:59:59 21 2019-07-28 2019-07-28 Outpatient Miguel Caldwell [facility] [id number] 14:00:00 23:59:59 20 2019-06-30 2019-07-01 Outpatient MG MG [id number] 12:14:38 23:59:59 04 2018-12-08 2018-12-08 [facility] [id number] 08:37:00 23:59:00 Neema Stewart 19 2018-11-17 2018-11-25 Outpatient Johana [facility] [id number] 08:31:00 14:50:00 Neema Stewart 16 2018-10-30 2018-10-30 Outpatient ROSA ELENA Kapadia [facility] [id number] 14:41:00 23:59:00 Cindy Monroy 17 2018-10-28 2018-10-28 Outpatient Miguel Caldwell [facility] [id number] 13:45:00 23:59:59 18 2018-10-01 2018-10-01 Outpatient Jagjit, [facility] [id number] 08:33:00 23:59:00 Liborio Marin 14 2018-08-19 2018-08-19 Outpatient Miguel Caldwell [facility] [id number] 13:45:00 13:45:00 17 2018-08-19 2018-08-19 Outpatient Miguel Caldwell [facility] [id number] 10:15:00 10:15:00 16 2018-02-11 2018-02-11 Outpatient Miguel Caldwell [facility] [id number] 14:15:00 23:59:59 15 2018-02-11 2018-02-11 Outpatient Miguel Caldwell [facility] [id number] 14:15:00 23:59:59 15 2018-02-03 2018-02-04 Outpatient MHMG [facility] [id number] 10:45:00 23:59:59 02 2017-07-29 2017-07-29 Outpatient Davian, [id number] 11:35:40 13:15:00 Rivera R 8 2017-07-15 2017-07-15 Outpatient Davian, [id number] 09:09:59 11:45:00 Rivera R 8 2015-09-19 2015-09-19 Outpatient Ibisl, MH29 MH29 [id number] 12:41:00 23:59:00 Mallory Keating 00 2015-08-29 2015-08-29 Outpatient Albaer, MHSL MHSL [id number] 10:37:00 17:25:00 Jeovanny Diana Mt 2014-11-09 2014-11-10 Outpatient Remington, [facility] [id number] 16:13:00 13:55:00 Jeovanny 03 Mt 2013-12-15 [...] alWork s Group Group 2013-05-25 2013-05-25 [facility] [id number] eClinic 10:54:00 10:54:00 Medical Medical [facility]Work s [facility] Group 2013-05-12 2013-05-12 Outpatient [facility] [id number] eClinic 11:30:00 11:30:00 Medical Medical [...] nts WBC (test code = 6690-2) 13.7 See_Comment H [A utomated message] The system which generated this result transmitted ref erence range: 3.5 - 10.5 K/L. T he reference range was not u sed to interpret this result as normal/abnormal. RBC (test code = 789-8) 3.21 See_Comment L [Au tomated message] The system which generated this result transmitted ref erence range: 4.63 - 6.08 M/ L. The reference range was not u sed to interpret this result as normal/abnormal. MCHC (test code = 786-4) 31.0 See_Comment L [A utomated message] The system which generated this result transmitted ref erence range: 32.3 - 36.5 GM/ DL. The reference range was not u sed to interpret this result as normal/abnormal. Hematocrit (test code = 31.0 % 40.1-51 L 4544-3) MCV (test code = 787-2) 96.6 fL 79-92.2 H MCH (test code = 785-6) 29.9 pg 25.7-32.2 RDW (test code = 788-0) 16.4 % 11.6-14.4 H Platelets (test code = 777-3) 231 See_Comment [Automated message] The system which generated this result transmitted ref erence range: 150 - 450 K/CU MM. The reference range was not u sed to interpret this result as normal/abnormal. MPV (test code = 74905-3) 11.0 fL 9.4-12.4 nRBC (test code = 413) 0 See_Comment [Aut omated message] The system which generated this result transmitted ref erence range: 0 - 0 /100 WBC. The reference range was not used to interpret this result as cris l/abnormal. % Neutros (test code = 429) 80 % % Lymphs (test code = 430) 9 % % Monos (test code = 431) 5 % % Eos (test code = 432) 5 % % Baso (test code = 437) 1 % # Neutros (test code = 670) 10.94 See_Comment H [Automated message] The system which generated this result transmitted ref erence range: 1.78 - 5.38 K/ L. The reference range was not u sed to interpret this result as normal/abnormal. # Lymphs (test code = 414) 1.21 See_Comment L [Automated message] The system which generated this result transmitted ref erence range: 1.32 - 3.57 K/ L. The reference range was not u sed to interpret this result as normal/abnormal. # Monos (test code = 415) 0.71 See_Comment [ Automated message] The system which generated this result transmitted ref erence range: 0.30 - 0.82 K/ L. The reference range was not u sed to interpret this result as normal/abnormal. # Eos (test code = 416) 0.67 See_Comment H [Au tomated message] The system which generated this result transmitted ref erence range: 0.04 - 0.54 K/ L. The reference range was not u sed to interpret this result as normal/abnormal. # Baso (test code = 417) 0.08 See_Comment [A utomated message] The system which generated this result transmitted ref erence range: 0.01 - 0.08 K/ L. The reference range was not u sed to interpret this result as normal/abnormal. Immature Granulocytes-Relative 0 % 0-1 (test code = 2801) Lab Interpretation (test code Abnormal = 15860-3) [facility] W/PLT COUNT & AUTO [id number] 17:56:00 Test Item Value Reference Range Interpretation [...] PERCENT (BEAKER) (test code = 2801) Prothrombin time/[id number] 17:00:00 Test Item Value Reference Interpretation Comments Range Protime (test code = 29.0 See_Comment H [Autom ated 5902-2) message] The system which generated this result transmitted reference range : 11.9 - 14.2 seconds. The reference range was not used to interpret this result as normal/abnormal . INR (test code = 2.82 See_Comment [Automated 6301-6) message] The system which generated this result transmitted reference range : <=5.90. The reference range was not used to interpret this result as normal/abnormal . SID (test code = Effective 03/11/2019: SID) PT Reference Range ChangeNew: 11.9-14.2 Previous: 11.7-14.7 RECOMMENDED COUMADIN/WARFARIN INR THERAPY RANGESSTANDARD DOSE: 2.0-3.0 Includes: PROPHYLAXIS for venous thrombosis, systemic embolization; TREATMENT for venous thrombosis and/or pulmonary embolus.HIGH RISK: Target INR is 2.5-3.5 for patients wiht mechanical heart valves. Lab Interpretation Abnormal (test code = 96700-2) [facility][id number] 17:00:00 Test Item Value Reference Range Interpretation [...] for patients wiht mechanical heart valves.Basic Metabolic [id number] 16:55:00 Test Item Value Reference Range Interpretation Comments Sodium (test code = 137 meq/L 013-542 9752-2) Potassium (test code = 5.0 meq/L 3.5-5.1 2823-3) Chloride (test code = 99 meq/L 98-107 2075-0) CO2 (test code = 31 meq/L 22-29 H 2028-9) BUN (test code = 40 mg/dL 7-21 H 3094-0) Creatinine (test code 5.55 mg/dL 0.57-1.25 H = 2160-0) Glucose (test code = 143 mg/dL 70-105 H 2345-7) Calcium (test code = 10.8 mg/dL 8.4-10.2 H 00034-5) EGFR (test code = 10 mL/min/1.73 [place] [address]-0) NOT ACCURATE CREATININE CLEARANCE IN PREDICTING GLOMERULAR FILTRATION RATE . ESTIMATED GFR I S NOT APPLICABLE FOR DIALYSIS PATIENTS. SID (test code = SID) [employer] Worker ID - BS Lab Interpretation Abnormal (test code = 58706-4) [facility] METABOLIC [id number] 16:55:00 Test Item Value Reference Range Interpretation [...] S NOT APPLICABLE FOR DIALYSIS PATIEN TS. [employer] Worker ID - BSHEMODIALYSIS [id number] 12:01:32Joey Aviles RN 10/10/2020 12:03 PM - [...] (H) 10/07/2020 Joey WARE, RN II7S6- Adult [id number]/[id number] 16:36:00 Test Item Value Reference Range Interpretation [...] is2.5-3.5 for patients wiht mechanical heart valves.POC-Glucose [id number] 10:40:00 Test Item Value Reference Range Interpretation Comments POC-Glucose Meter (test 112 mg/dL 70-110 H : [facility] ST[facility] code = 1538) [address] [facility] [place] [address]: [employer] Worker/Techni sandi ID = [id number] for Joey Aviles Lab Interpretation (test Abnormal code = 17669-0) [facility] [id number] 10:40:00 Test Item Value Reference Range Interpretation Comments POC-GLUCOSE METER 112 mg/dL 70-110 H : [facility] (BEAKER) (test code = [place], [address]) [address]: [employer] Worker/Techni sandi ID = [id number] for Joey Merlos BASIC METABOLIC [id number] 06:35:00 Test Item Value Reference Range Interpretation [...] S NOT APPLICABLE FOR DIALYSIS PATIEN TS. [employer] Worker ID - [id number] 06:07:00 Test Item Value Reference Range Interpretation Comments Magnesium (test code = 2.4 mg/dL 1.6-2.6 06352-6) SID (test code = SID) [employer] Work[employer] ID - EDASI Lab Interpretation (test Normal code = 55991-2) [id number] 06:07:00 Test Item Value Reference Range Interpretation Comments MAGNESIUM (BEAKER) (test code = 2.4 mg/dL 1.6-2.6 627) [employer] Work[employer] ID - EDASIPROTHROMBIN TIME/[id number] 06:02:00 Test Item Value Reference Range Interpretation [...] Comments WBC (test code = 6690-2) 12.2 See_Comment H [A utomated message] The system I Just Shared generated this result transmitted ref erence range: 3.5 - 10 .5 K/L. The refe rence range was not u sed to interpret this result as normal/abnor mal. RBC (test code = 789-8) 3.08 See_Comment L [Au tomated message] The system I Just Shared generated this result transmitted ref erence range: 4.63 - 6 .08 M/L. The refe rence range was not u sed to interpret this result as normal/abnor mal. MCHC (test code = 786-4) 31.1 See_Comment L [A utomated message] The system I Just Shared generated this result transmitted ref erence range: 32.3 - 3 6.5 GM/DL. The refe rence range was not u sed to interpret this result as normal/abnor mal. Hematocrit (test code = 29.6 % 40.1-51 L 4544-3) MCV (test code = 787-2) 96.1 fL 79-92.2 H MCH (test code = 785-6) 29.9 pg 25.7-32.2 RDW (test code = 788-0) 16.3 % 11.6-14.4 H Platelets (test code = 207 See_Comment [Aut omated message] 537-3) The system I Just Shared generated this result transmitted ref erence range: 150 - 45 0 K/CU MM. The referen ce range was not u sed to interpret this result as normal/abnor mal. MPV (test code = 10.6 fL 9.4-12.4 98812-4) nRBC (test code = 413) 0 See_Comment [Aut omated message] The system I Just Shared generated this result transmitted ref erence range: 0 - 0 /1 00 WBC. The refere nce range was not u sed to interpret this result as normal/abnor mal. Lab Interpretation (test Abnormal code = 36523-3) [facility] (HEMOGRAM ONLY)2020-10-07 05:35:00 Test Item Value Reference [...] Not Detected, (test code = Negative, See 20876-2) external report for linked test SARS-COV-2 [facility] PERFORMING LAB (test code = 13074-7) SID (test code = Negative result for [...] of the Act. Fact Sheet for Healthcare Providers:https://www.Yelago/sites/default/f veronica/product/documents/F act_Sheet_HC_Providers_L omg_KSSD-OlE-2.pdf Fact Sheet for Healthcare Patients:https://www.Aviacomm/sites/default/fi les/product/documents/Fa ct_Sheet_Patients_Lyra_S ARS-CoV-2.pdf Performing Laboratory:[facility] [place] [address] [facility]2020-10-06 11:17:00 Test Item Value Reference Range Interpretation Comments SARS-COV2/RT-PCR (test Negative Not Detected, Negative, code = 7515828) See external report for linked test SARS-COV-2 PERFORMING LAB [facility] (test code = 2436088) Negative result for this test determines that [...] 564(g) of the Act.Fact Sheet for Healthcare Providers:https://www.Rivalryidel.com/sites/default/files/product/documents/Fact_Shee o_KQ_Cfqjnhxbm_Ussz_GSQO-AdN-0.pdfFact Sheet for Healthcare Patients:https://www.Rivalryidel.com/sites/default/files/product/ documents/Fvei_Lsdxz_Cgswnsjq_Gsyi_HJOT-KxK-3.pdfPerforming Laboratory:[facility], [place] [address]HJREG METABOLIC PANEL 2020-10-06 07:40:00 Test Item Value [...] S NOT APPLICABLE FOR DIALYSIS PATIEN TS. [employer] Worker ID - EVELIA NTvwawqlqjm1738-98-70 07:29:00 Test Item Value Reference Range Interpretation Comments Phosphorus (test code = 4.3 mg/dL 2.3-4.7 2777-1) SID (test code = SID) [employer] Worker ID - EVELIA F Lab Interpretation (test Normal code = 70682-6) [facility] 07:29:00 Test Item Value Reference Range Interpretation Comments MAGNESIUM (BEAKER) (test code = 2.4 mg/dL 1.6-2.6 627) [employer] Worker ID - EVELIA [id number] 07:29:00 Test Item Value Reference Range Interpretation Comments PHOSPHORUS (BEAKER) (test code = 4.3 mg/dL 2.3-4.7 604) [employer] Worker ID - EVELIA [id number] 07:21:00 Test Item Value Reference Range Interpretation Comments PTT (test code = 57.8 See_Comment H [Automated 08255-5) message] The system which generated this result transmit duane reference range : 22.5 - 36.0 seconds. The reference range was not used to interpret this result as normal/abnormal . SID (test code = SID) While on warfarin. Lab Interpretation Abnormal (test code = 34653-0) [facility] Test Item Value Reference Range Interpretation Comments PARTIAL THROMBOPLASTIN TIME 57.8 seconds 22.5-36.0 H (BEAKER) (test code = 760) While on warfarin.PROTHROMBIN TIME/[id number] 07:19:00 Test Item Value Reference Range Interpretation [...] WBC 0-0 (BEAKER) (test code = 413) [id number] 00:48:00 Test Item Value Reference Range Interpretation Comments PARTIAL THROMBOPLASTIN TIME 88.7 seconds 22.5-36.0 H (BEAKER) (test code = 760) POCT-GLUCOSE [id number] 17:50:00 Test Item Value Reference Range Interpretation Comments POC-GLUCOSE METER 138 mg/dL 70-110 H : TESTED A T [facility] [address]20 (BEAKER) (test code = PAOLO Dey [facility], 1538) [address]: [employer] Worker/Techni sandi ID = [id number] for JAIME NYE [id number] 06:15:00 Test Item Value Reference Range Interpretation Comments Ferritin (test code = 1986.09 ng/mL 5-275 H 2276-4) SID (test code = SID) [employer] Worker ID - YULIANA M Lab Interpretation (test Abnormal code = 83276-5) [facility]ERR[facility]IN2020-[facility] 06:15:00 Test Item Value Reference Range Interpretation Comments FERRITIN (BEAKER) (test code = 1986.09 ng/mL 5.00-275.00 H 361) [employer] Worker ID - YULIANA MBASIC METABOLIC [id number] 06:13:00 Test Item Value Reference Range Interpretation [...] S NOT APPLICABLE FOR DIALYSIS PATIEN TS. [employer] Worker ID - YULIANA [id number] 05:52:00 Test Item Value Reference Range Interpretation Comments MAGNESIUM (BEAKER) (test code = 2.4 mg/dL 1.6-2.6 627) [employer] Worker ID - YULIANA [id number] 05:52:00 Test Item Value Reference Range Interpretation Comments PHOSPHORUS (BEAKER) (test code = 6.4 mg/dL 2.3-4.7 H 604) [employer] Worker ID - YULIANA Artis, TIBC, % sat. (without ferritin)2020-10-05 05:38:00 Test Item Value Reference Range Interpretation Comments Iron (test code = 2498-4) 36.0 ug/dL 40-160 L TIBC (test code = 2500-7) 143 ug/dL 250-450 L Iron % Saturation (test 25 % 20-55 code = 2502-3) SID (test code = SID) [employer] Worker ID Bettie Haro Lab Interpretation (test Abnormal code = 00436-0) [facility] CenterIRON, TIBC, % SAT. (WITHOUT FERRITIN)2020-10-05 05:38:00 Test Item Value Reference Range Interpretation Comments IRON (BEAKER) (test code = 547) 36.0 ug/dL 40.0-160.0 L TOTAL IRON BINDING CAPACITY 143 ug/dL 250-450 L (BEAKER) (test code = 769) IRON % SATURATION (2) (BEAKER) 25 % 20-55 (test code = 2590) [employer] Worker ID - YULIANA MPTH, [id number] 05:37:00 Test Item Value Reference Range Interpretation Comments PTH (test code = 2731-8) 376.4 pg/mL 8.5-72.5 H SID (test code = SID) [employer] Worker ID Bettie BRIDGES M Lab Interpretation (test Abnormal code = 36353-9) [facility] CenterPTH, [id number] 05:37:00 Test Item Value Reference Range Interpretation Comments PARATHYROID HORMONE INTACT 376.4 pg/mL 8.5-72.5 H (BEAKER) (test code = 577) [employer] Worker ID - YULIANA [id number] 05:16:00 Test Item Value Reference Range Interpretation Comments PARTIAL THROMBOPLASTIN TIME 48.8 seconds 22.5-36.0 H (BEAKER) (test code = 760) While on warfarin.PROTHROMBIN TIME/[id number] 05:15:00 Test Item Value Reference Range Interpretation [...] (BEAKER) (test code = 413) Oxygen saturation, [id number] 04:47:00 Test Item Value Reference Range Interpretation Comments O2 Saturation (Measured) (test code = 68.9 % 46777-4) [facility] CenterOXYGEN SATURATION, [id number] 04:47:00 Test Item Value Reference Range Interpretation Comments O2 SATURATION (MEASURED) (BEAKER) 68.9 % (test code = 1455) [id number] 21:22:00 Test Item Value Reference Range Interpretation Comments PARTIAL THROMBOPLASTIN TIME 78.7 seconds 22.5-36.0 H (BEAKER) (test code = 760) OXYGEN SATURATION, [id number] 20:57:00 Test Item Value Reference Range Interpretation Comments O2 SATURATION (MEASURED) (BEAKER) 72.6 % (test code = 1455) POCT-GLUCOSE [id number] 18:28:00 Test Item Value Reference Range Interpretation Comments POC-GLUCOSE METER 149 mg/dL 70-110 H : TESTED A T [facility] 6720 (BEAKER) (test code = [employer] [place], 1538) [address]: [employer] Worker/Techni sandi ID = [id number] for JAIME NYE [id number] 13:22:00 Test Item Value Reference Range Interpretation Comments PARTIAL THROMBOPLASTIN TIME 91.8 seconds 22.5-36.0 H (BEAKER) (test code = 760) OXYGEN SATURATION, [id number] 12:48:00 Test Item Value Reference Range Interpretation Comments O2 SATURATION (MEASURED) (BEAKER) 85.8 % (test code = 1455) POCT-GLUCOSE [id number] 12:36:00 Test Item Value Reference Range Interpretation Comments POC-GLUCOSE METER 143 mg/dL 70-110 H : TESTED A T [facility] 6720 (BEAKER) (test code = [place], 1538) [address]: [employer] Worker/Techni sandi ID = [id number] for JAIME NYE OXYGEN SATURATION, [id number] 05:46:00 Test Item Value Reference Range Interpretation Comments O2 SATURATION (MEASURED) (BEAKER) 80.5 % (test code = 1455) BASIC METABOLIC [id number] 04:53:00 Test Item Value Reference Range Interpretation [...] S NOT APPLICABLE FOR DIALYSIS PATIEN TS. [employer] Worker ID - SUGAR [id number] 04:51:00 Test Item Value Reference Range Interpretation Comments MAGNESIUM (BEAKER) (test code = 2.2 mg/dL 1.6-2.6 627) [employer] Worker ID - SUGAR [id number] 04:51:00 Test Item Value Reference Range Interpretation Comments PHOSPHORUS (BEAKER) (test code = 3.8 mg/dL 2.3-4.7 604) [employer] Worker ID Bettie WOOTEN [id number] 04:19:00 Test Item Value Reference Range Interpretation Comments PARTIAL THROMBOPLASTIN TIME 103.1 seconds 22.5-36.0 H (BEAKER) (test code = 760) While on warfarin.PROTHROMBIN TIME/[id number] 04:06:00 Test Item Value Reference Range Interpretation [...] (BEAKER) (test code = 413) OXYGEN SATURATION, [id number] 03:44:00 Test Item Value Reference Range Interpretation Comments O2 SATURATION (MEASURED) (BEAKER) 97.5 % (test code = 1455) HEMODIALYSIS [id number] 00:10:00Mali Mehta RN 10/04/2020 12:46 AMProcedure tolerated [...] BP: Pulse: 110 Resp: 15 Temp: SpO2: 97%[facility] CenterAPTT2020-12-21 20:38:00 Test Item Value Reference Range Interpretation Comments PARTIAL THROMBOPLASTIN TIME 75.2 seconds 22.5-36.0 H (BEAKER) (test code = 760) POCT-GLUCOSE [id number] 17:48:00 Test Item Value Reference Range Interpretation Comments POC-GLUCOSE METER 106 mg/dL 70-110 : TESTED A T [facility] 67[address] [facility] (test code = PAOLO Dey [facility], 1538) [address]: [employer] Worker/Techni sandi ID = [id number] for NG Sujey [facility] 2D Echo W/Doppler(CW/PW/Color)2020-10-03 15:39:52Ejection FractionSLEH ECHO HEARTLAB MKCKESSON CPACSInterface, External Ris In - 10/03/2020 3:40 PM C STTransthoracic Echocardiography Report (TTE) Demographics Patient Name KODI OMRAN Date of Study 10/03/2020 JACKHORN Gender Male Visit Number [id number] Race Unknown Room Number 8A04 Number Date of 1945 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 The reference range was not u sed to interpret th is result as normal/abnormal . SID (test code = SID) [employer] Worker ID - [id number] Lab Interpretation Abnormal (test code = 38860-4) [facility] CenterPLATELET [id number] 13:16:00 Test Item Value Reference Range Interpretation Comments PLATELET COUNT (BEAKER) (test 118 K/CU MM 150-450 L code = 756) [employer] Worker ID - [id number] SATURATION, [id number] 12:21:00 Test Item Value Reference Range Interpretation Comments O2 SATURATION (MEASURED) ([facility]) 90.6 % (test code = 1455) POCT-GLUCOSE [id number] 11:26:00 Test Item Value Reference Range Interpretation Comments POC-GLUCOSE METER 87 mg/dL 70-110 : TESTED A T [facility] 6720 (AKER) (test code = [place], 1538) [address]: [employer] Worker/Techni sandi ID = [id number] for [place] ([place]), Luzinda RAD, CHEST, 1 VIEW, NON [id number] 09:33:00Reason for exam:->volumeShould this be performed at the bedside?->Yes [facility] 1945 Sex: MFINAL [...] MDReport Verified Date/Time: 10/03/2020 09:33:43 Reading Location: [facility] Radiology Reading Room XR chest 1 view portable / [id number] 09:33:00Interface, External Ris In - 10/03/2020 9:35 [...] MDReport Verified Date/Time: 10/03/2020 09:33:43 Reading Location: [facility] Radiology [facility] 05:49:00 Test Item Value Reference Range Interpretation Comments MAGNESIUM (BEAKER) (test code = 2.2 mg/dL 1.6-2.6 627) [employer] Worker ID - YULIANA [id number] 05:49:00 Test Item Value Reference Range Interpretation Comments PHOSPHORUS (BEAKER) (test code = 3.5 mg/dL 2.3-4.7 604) [employer] Worker ID - YULIANA MBASIC METABOLIC [id number] 05:49:00 Test Item Value Reference Range Interpretation [...] S NOT APPLICABLE FOR DIALYSIS PATIEN TS. [employer] Worker ID - YULIANA MCBC (HEMOGRAM ONLY)2020-10-03 05:26:00 Test Item Value Reference [...] 0-0 (BEAKER) (test code = 413) POCT-GLUCOSE [id number] 17:16:00 Test Item Value Reference Range Interpretation Comments POC-GLUCOSE METER 91 mg/dL 70-110 : TESTED A T [facility] 6720 ([employer]) (test code = [employer] [place], 1538) [address]: [employer] Worker/Techni sandi ID = [id number] for HINT ON, JAIME ECG 12 [id number] 12:15:31Interface, External Ris In - 10/02/2020 12:15 PM CSTVentricular Rate 105 BPMAtrial Rate 105 BPMQRS Duration 94 msQ-T Interval 348 msQTC Calculation(Bazett) 459 msR Dayhoit -39 degreesT Dayhoit 93 degreesSinus rhythm with frequent PACsLeft axis [...] MD SAMUEL, RENETTA (1904) on 10/02/2020 12:15:30 [facility] CenterPO[facility] [id number] 12:06:00 Test Item Value Reference Range Interpretation Comments POC-GLUCOSE METER 129 mg/dL 70-110 H : TESTED A T [facility] 6720 ([employer]) (test code = [facility] mGaadi [place], 1538) [address]: [employer] Worker/Techni sandi ID = [id number] for JAIME NYE POCT-GLUCOSE [id number] 08:23:00 Test Item Value Reference Range Interpretation Comments POC-GLUCOSE METER 123 mg/dL 70-110 H : TESTED A T [facility] 6720 (BEAKER) (test code = [place], 1538) [address]: [employer] Worker/Techni sandi ID = [id number] for JAIME NYE PT/[id number] 06:38:00 Test Item Value Reference Interpretation Comments Range Protime (test code = 21.7 See_Comment H [Autom ated 5902-2) message] The system which generated this result transmitted reference range : 11.9 - 14.2 seconds. The reference range was not used to interpret this result as normal/abnormal . INR (test code = 1.95 See_Comment [Automated 6301-6) message] The system which generated this result transmitted reference range : <=5.90. The reference range was not used to interpret this result as normal/abnormal . PTT (test code = 86.4 See_Comment H [Automated 34802-0) message] The system which generated this result transmitted reference range : 22.5 - 36.0 seconds. The reference range was not used to interpret this result as normal/abnormal . SID (test code = Effective 03/11/2019: SID) PT Reference Range ChangeNew: 11.9-14.2 Previous: 11.7-14.7 RECOMMENDED COUMADIN/WARFARIN INR THERAPY RANGESSTANDARD DOSE: 2.0-3.0 Includes: PROPHYLAXIS for venous thrombosis, systemic embolization; TREATMENT for venous thrombosis and/or pulmonary embolus.HIGH RISK: Target INR is 2.5-3.5 for patients wiht mechanical heart valves. Lab Interpretation Abnormal (test code = 65915-7) [facility] CenterPT/[id number] 06:38:00 Test Item Value Reference Range Interpretation [...] for patients wiht mechanical heart valves.BASIC METABOLIC [id number] 06:34:00 Test Item Value Reference Range Interpretation [...] S NOT APPLICABLE FOR DIALYSIS PATIEN TS. [employer] Worker ID - ADRIANNE [id number] 06:33:00 Test Item Value Reference Range Interpretation Comments MAGNESIUM (BEAKER) (test code = 2.1 mg/dL 1.6-2.6 627) [employer] Worker ID - ADRIANNE [id number] 06:33:00 Test Item Value Reference Range Interpretation Comments PHOSPHORUS (BEAKER) (test code = 3.6 mg/dL 2.3-4.7 604) [employer] Worker ID - ADRIANNE LongH, [id number] 06:26:00 Test Item Value Reference Range Interpretation Comments pH, Arterial (test code = 2744-1) 7.36 7.35-7.45 Lab Interpretation (test code = Normal 56141-9) [facility] CenterPH, [id number] 06:26:00 Test Item Value Reference Range Interpretation Comments PH ARTERIAL (BEAKER) (test code = 383) 7.36 7.35-7.45 Calcium, [id number] 06:25:00 Test Item Value Reference Range Interpretation Comments Calcium, Ion (test code = 1994-3) 1.40 mmol/L 1.12-1.27 H pH, Blood (test code = 97802-7) 7.36 Lab Interpretation (test code = Abnormal 49880-2) [facility] CenterCALCIUM, [id number] 06:25:00 Test Item Value Reference Range Interpretation [...] (BEAKER) (test code = 413) BASIC METABOLIC [id number] 01:35:00 Test Item Value Reference Range Interpretation [...] S NOT APPLICABLE FOR DIALYSIS PATIEN TS. [employer] Worker ID - PIAYA LRAD, CHEST, 1 VIEW, NON [id number] 01:33:00Reason for exam:->s/p MVR, AKIShould this be performed at the bedside?->Yes [facility] : 1945 Sex: MFINAL REPORT CLINICAL INDICATION: Postop Comparison: 10/01/2020 The patient is rotated to the left. The cardiomediastinal contours are grossly stable. Central pulmonary vascular congestion and bilateral parenchymal and pleural opacities are unchanged. There is no pneumothorax. Support lines are stable. Signed: Kevin Mott MDReport Verified Date/Time: 10/02/2020 01:33:01 IUM, [id number] 01:16:00 Test Item Value Reference Range Interpretation Comments CALCIUM IONIZED (BEAKER) (test 1.38 mmol/L 1.12-1.27 H code = 698) PH, BLOOD (BEAKER) (test code = 7.39 1810) BASIC METABOLIC [id number] 18:51:00 Test Item Value Reference Range Interpretation [...] S NOT APPLICABLE FOR DIALYSIS PATIEN TS. [employer] Worker ID - MARC [id number] 18:50:00 Test Item Value Reference Range Interpretation Comments MAGNESIUM (BEAKER) (test code = 2.4 mg/dL 1.6-2.6 627) [employer] Worker ID - MARC [id number] 18:50:00 Test Item Value Reference Range Interpretation Comments PHOSPHORUS (BEAKER) (test code = 4.7 mg/dL 2.3-4.7 604) [employer] Worker ID - MARC CPH, [id number] 18:15:00 Test Item Value Reference Range Interpretation Comments PH ARTERIAL (BEAKER) (test code = 383) 7.40 7.35-7.45 CALCIUM, [id number] 18:15:00 Test Item Value Reference Range Interpretation Comments CALCIUM IONIZED (BEAKER) (test 1.38 mmol/L 1.12-1.27 H code = 698) PH, BLOOD (BEAKER) (test code = 7.40 1810) Thromboelastograph (TEG)2020-10-01 13:43:00 Test Item Value Reference Range Interpretation Comments TEG Activated Clotting 5.2 See_Comment [Aut omated message] Time (test code = The system which 95283-2) generated this result transmitted ref erence range: 4.0 - 7. 0 minutes. The reference range was not used to int erpret this result as normal/abnormal . TEG Fibrinogen Activity 76.2 See_Comment H [Au tomated message] (test code = 12755-0) The sy stem which generated this result transmitted ref erence range: 61.0 - 7 3.0 degrees. The reference range was not used to int erpret this result as normal/abnormal . TEG Platelet Aggregation 73.0 See_Comment H [A utomated message] (test code = 59811-4) The sy stem which generated this result transmitted ref erence range: 55.0 - 6 5.0 MM. The referen ce range was not u sed to interpret this result as normal/abnor mal. TEG Fibrinolysis (test 0.0 % 0-5 code = 26070-7) TEG-H Activated Clotting 5.5 See_Comment [A utomated message] Time (test code = 1411) The system which generated this result transmitted ref erence range: 4.0 - 7. 0 minutes. The reference range was not used to int erpret this result as normal/abnormal . TEG-H Fibrinogen 74.0 See_Comment H [Automated message] Activity (test code = The sy stem which 1412) generated this result transmitted ref erence range: 61.0 - 7 3.0 degrees. The reference range was not used to int erpret this result as normal/abnormal . TEG-H Platelet 70.6 See_Comment H [Automated m essage] Aggregation (test code = The system which 1413) generated this result transmitted ref erence range: 55.0 - 6 5.0 MM. The referen ce range was not u sed to interpret this result as normal/abnor mal. TEG-H Fibrinolysis (test 1.7 % 0-5 code = 1414) Lab Interpretation (test Abnormal code = 64293-7) [facility] CenterTHROMBOELASTOGRAPH (TEG)2020-10-01 13:43:00 Test Item Value Reference Range [...] (test 1.7 % 0.0-5.0 code = 1414) [id number] 11:25:00 Test Item Value Reference Range Interpretation Comments Potassium (test code = 4.6 meq/L 3.5-5.1 2823-3) SID (test code = SID) [employer] Worker ID - MARC Miranda Lab Interpretation (test Normal code = 09992-8) [facility] 11:25:00 Test Item Value Reference Range Interpretation Comments Sodium (test code = 134 meq/L 136-145 L 2951-2) SID (test code = SID) [employer] Worker ID - MARC C Lab Interpretation (test Abnormal code = 82887-1) [facility] CenterMAGNESIUM2020-12-19 11:25:00 Test Item Value Reference Range Interpretation Comments MAGNESIUM (BEAKER) (test code = 2.7 mg/dL 1.6-2.6 H 627) [employer] Worker ID - MARC [id number] 11:25:00 Test Item Value Reference Range Interpretation Comments PHOSPHORUS (BEAKER) (test code = 6.4 mg/dL 2.3-4.7 H 604) [employer] Worker ID - MARC [id number] 11:25:00 Test Item Value Reference Range Interpretation Comments POTASSIUM (BEAKER) (test code = 4.6 meq/L 3.5-5.1 379) [employer] Worker ID - MARC [id number] 11:25:00 Test Item Value Reference Range Interpretation Comments SODIUM (BEAKER) (test code = 381) 134 meq/L 136-145 L [employer] Worker ID - MARC CPT/[id number] 11:09:00 Test Item Value Reference Range Interpretation [...] art line onlyPlease draw from artline onlyCALCIUM, [id number] 11:04:00 Test Item Value Reference Range Interpretation Comments CALCIUM IONIZED (BEAKER) (test 1.41 mmol/L 1.12-1.27 H code = 698) PH, BLOOD (BEAKER) (test code = 7.39 1810) PH, [id number] 11:03:00 Test Item Value Reference Range Interpretation Comments PH ARTERIAL (BEAKER) (test code = 383) 7.39 7.35-7.45 BASIC METABOLIC [id number] 04:54:00 Test Item Value Reference Range Interpretation [...] S NOT APPLICABLE FOR DIALYSIS PATIEN TS. [employer] Worker ID Bettie Summerspatic function [id number] 04:48:00 Test Item Value Reference Range Interpretation Comments Protein, Total (test 6.1 See_Comment [Autom ated code = 2885-2) message] The system which generated this result transmit duane reference range : 6.0 - 8.3 gm/dL . The reference range was not u sed to interpret th is result as normal/abnormal . Albumin (test code = 2.9 g/dL 3.5-5 L 02789-1) Total Bilirubin (test 1.2 mg/dL 0.2-1.2 code = 1975-2) Bilirubin, Direct 0.8 mg/dL 0.1-0.5 H (test code = 1968-7) Alkaline Phosphatase 69 U/L 40-150 (test code = 6768-6) AST (test code = 25 U/L 5-34 1920-8) ALT (test code = 17 U/L 6-55 1742-6) SID (test code = SID) [employer] Worker ID - SUGAR Marin Lab Interpretation Abnormal (test code = 98146-8) [facility] CenterLactate dehydrogenase (LDH)2020-10-01 04:48:00 Test Item Value Reference Range Interpretation Comments LDH (test code = 2532-0) 352 U/L 125-220 H SID (test code = SID) [employer] Worker ID Bettie Marin Lab Interpretation (test Abnormal code = 57469-3) [facility] CenterMAGNESIUM2020-12-19 04:48:00 Test Item Value Reference Range Interpretation Comments MAGNESIUM (BEAKER) (test code = 2.5 mg/dL 1.6-2.6 627) [employer] Worker ID Bettie WOOTEN [id number] 04:48:00 Test Item Value Reference Range Interpretation Comments PHOSPHORUS (BEAKER) (test code = 6.3 mg/dL 2.3-4.7 H 604) [employer] Worker ID Bettie WOOTEN WHEPATIC FUNCTION [id number] 04:48:00 Test Item Value Reference Range Interpretation [...] (test code = 17 U/L 6-55 347) [employer] Worker DOROTA WOOTEN WLACTATE DEHYDROGENASE (LDH)2020-10-01 04:48:00 Test Item Value Reference Range Interpretation Comments LACTATE DEHYDROGENASE (BEAKER) (test 352 U/L 125-220 H code = 635) [employer] Worker DOROTA WOOTEN WPT/[id number] 04:31:00 Test Item Value Reference Range Interpretation [...] INR is2.5-3.5 for patients wiht mechanical heart valves.[id number] 04:30:00 Test Item Value Reference Range Interpretation Comments Fibrinogen (test code = 3255-7) 716 mg/dl 225-434 H Lab Interpretation (test code = Abnormal 08928-5) [facility] 04:30:00 Test Item Value Reference Range Interpretation [...] 0-0 (test code = 413) Lactic Acid, [id number] 04:22:00 Test Item Value Reference Range Interpretation Comments Lactate, Art (test code = 1.0 mmol/L 0.5-2.2 2874) SID (test code = SID) [employer] Worker ID - SUGAR [place] [facility] Interpretation (test Normal code = 46785-6) [facility] Center[facility]ID, [id number] 04:22:00 Test Item Value Reference Range Interpretation Comments LACTATE BLOOD ARTERIAL (2) 1.0 mmol/L 0.5-2.2 (BEAKER) (test code = 2874) [employer] Worker ID - SUGAR WOXYGEN SATURATION, [id number] 04:12:00 Test Item Value Reference Range Interpretation Comments O2 SATURATION (MEASURED) (BEAKER) 66.7 % (test code = 1455) RAD, CHEST, 1 VIEW, NON [id number] 02:49:00Reason for exam:->s/p acbShould this be performed at the bedside?->Yes [facility] 1945 Sex: MFINAL [...] (test code = 4.6 meq/L 3.5-5.1 379) [employer] Worker ID - SUGAR WPH, [id number] 00:33:00 Test Item Value Reference Range Interpretation Comments PH ARTERIAL (BEAKER) (test code = 383) 7.41 7.35-7.45 POCT-GLUCOSE [id number] 00:32:00 Test Item Value Reference Range Interpretation Comments POC-GLUCOSE METER 110 mg/dL 70-110 : TESTED A T [facility] 6720 (BEAKER) (test code = [place], 1538) [address]: [employer] Worker/Techni sandi ID = [id number] for KODI MONTERO [id number] 21:32:00 Test Item Value Reference Range Interpretation Comments MAGNESIUM (BEAKER) (test code = 2.5 mg/dL 1.6-2.6 627) [employer] Worker ID - [id number] 21:32:00 Test Item Value Reference Range Interpretation Comments PHOSPHORUS (BEAKER) (test code = 5.8 mg/dL 2.3-4.7 H 604) [employer] Worker ID - [id number] 21:32:00 Test Item Value Reference Range Interpretation Comments POTASSIUM (BEAKER) (test code = 4.6 meq/L 3.5-5.1 379) [employer] Worker ID - [id number] 21:32:00 Test Item Value Reference Range Interpretation Comments SODIUM (BEAKER) (test code = 381) 134 meq/L 136-145 L [employer] Worker ID - DBCALCIUM, [id number] 21:02:00 Test Item Value Reference Range Interpretation Comments CALCIUM IONIZED (BEAKER) (test 1.39 mmol/L 1.12-1.27 H code = 698) PH, BLOOD (BEAKER) (test code = 7.42 1810) [id number] 15:38:00 Test Item Value Reference Range Interpretation Comments MAGNESIUM (BEAKER) (test code = 2.5 mg/dL 1.6-2.6 627) [employer] Worker ID - [id number] 15:38:00 Test Item Value Reference Range Interpretation Comments PHOSPHORUS (BEAKER) (test code = 4.9 mg/dL 2.3-4.7 H 604) [employer] Worker ID - [id number] 15:38:00 Test Item Value Reference Range Interpretation Comments POTASSIUM (BEAKER) (test code = 4.5 meq/L 3.5-5.1 379) [employer] Worker ID - [id number] 15:38:00 Test Item Value Reference Range Interpretation Comments SODIUM (BEAKER) (test code = 381) 137 meq/L 136-145 [employer] Worker ID - ADMINCALCIUM, [id number] 15:28:00 Test Item Value Reference Range Interpretation Comments CALCIUM IONIZED (BEAKER) (test 1.40 mmol/L 1.12-1.27 H code = 698) PH, BLOOD (BEAKER) (test code = 7.40 1810) PH, [id number] 15:27:00 Test Item Value Reference Range Interpretation Comments PH ARTERIAL (BEAKER) (test code = 383) 7.40 7.35-7.45 POCT-GLUCOSE [id number] 12:03:00 Test Item Value Reference Range Interpretation Comments POC-GLUCOSE METER 129 mg/dL 70-110 H : TESTED A T [facility] 6720 (BEAKER) (test code = [place], 1538) [address]: [employer] Worker/Techni sandi ID = [id number] for Katie Brian RAD, CHEST, 1 VIEW, NON [id number] 03:53:00Reason for exam:->s/p acbShould this be performed at the bedside?->Yes [facility] 1945 Sex: MFINAL REPORT RAD, CHEST, 1 VIEW, NON DEPT INDICATION: s/p acb TYESHA RISON: Prior day's exam FINDINGS: Portable frontal view of the chest. IMPRESSION: Support Lines: Interval extubation and removal of the enteric tube. Intra-aortic balloon pump marker is no longer seen. Stable Penrose-Boris catheter. Lungs and pleura: Unchanged hypoinflated lungs with central pulmonary venous congestion. No interval consolidation. Unchanged small left pleural effusion. No pneumothorax.Heart and mediastinum: Stable contours.Additional findings: None. Signed: Linda Lopez MDReport Verified Date/Time: 09/30/2020 03:53:52 BASIC METABOLIC [id number] 03:41:00 Test Item Value Reference Range Interpretation [...] S NOT APPLICABLE FOR DIALYSIS PATIEN TS. [employer] Worker ID - [id number] 03:34:00 Test Item Value Reference Range Interpretation Comments MAGNESIUM (BEAKER) (test code = 2.2 mg/dL 1.6-2.6 627) [employer] Worker ID - [id number] 03:34:00 Test Item Value Reference Range Interpretation Comments PHOSPHORUS (BEAKER) (test code = 3.8 mg/dL 2.3-4.7 604) [employer] Worker ID - [id number] 03:23:00 Test Item Value Reference Range Interpretation Comments PARTIAL THROMBOPLASTIN TIME 37.3 seconds 22.5-36.0 H (BEAKER) (test code = 760) Blood gas, [id number] 03:08:00 Test Item Value Reference Range Interpretation Comments pH, Arterial (test code 7.41 7.35-7.45 = 2744-1) pCO2, Arterial (test 43 See_Comment [Autom ated message] code = 2019-8) The system [facility] generated this result transmit duane reference range : 35 - 45 mm Hg. The reference range was not used to interpret this result as normal/abnormal . pO2, Arterial (test 137 See_Comment H [Automa duane message] code = 2703-7) The system [facility] generated this result transmit duane reference range : 80 - 90 mm Hg. The reference range was not used to interpret this result as normal/abnormal . O2 Sat, Arterial (test 98.7 % 96-97 H code = 2708-6) HCO3, Arterial (test 27 mmol/L 21-29 code = 1960-4) Base Excess, Arterial 1.9 mmol/L -2-3 (test code = 1925-7) Patient Temperature 37.1 (test code = 8310-5) FIO2 (test code = 1819) 36 Lab Interpretation Abnormal (test code = 01103-2) [facility] Center[facility] SAT[facility], [id number] 03:08:00 Test Item Value Reference Range Interpretation Comments O2 SATURATION (MEASURED) (BEAKER) 77.4 % (test code = 1455) BLOOD GAS, [id number] 03:08:00 Test Item Value Reference Range Interpretation [...] /100 WBC 0-0 (test code = 413) [id number] 23:48:00 Test Item Value Reference Range Interpretation Comments MAGNESIUM (BEAKER) (test code = 2.4 mg/dL 1.6-2.6 627) [employer] Worker ID - PIAYA [id number] 23:48:00 Test Item Value Reference Range Interpretation Comments POTASSIUM (BEAKER) (test code = 4.1 meq/L 3.5-5.1 379) [employer] Worker ID - NICOROMELIA LPOCT-GLUCOSE [id number] 23:36:00 Test Item Value Reference Range Interpretation Comments POC-GLUCOSE METER 117 mg/dL 70-110 H : TESTED A T [facility] 6720 (BEAKER) (test code [facility], = 1538) [address]: [employer] Worker/Techni sandi ID = [id number] for MARLY MO CALCIUM, [id number] 23:30:00 Test Item Value Reference Range Interpretation Comments CALCIUM IONIZED (BEAKER) (test 1.32 mmol/L 1.12-1.27 H code = 698) PH, BLOOD (BEAKER) (test code = 7.43 1810) [id number] 20:23:00 Test Item Value Reference Range Interpretation Comments MAGNESIUM (BEAKER) (test code = 2.0 mg/dL 1.6-2.6 627) [employer] Worker ID - [id number] 20:23:00 Test Item Value Reference Range Interpretation Comments PHOSPHORUS (BEAKER) (test code = 3.6 mg/dL 2.3-4.7 604) [employer] Worker ID - [id number] 20:23:00 Test Item Value Reference Range Interpretation Comments POTASSIUM (BEAKER) (test code = 4.0 meq/L 3.5-5.1 379) [employer] Worker ID - [id number] 20:23:00 Test Item Value Reference Range Interpretation Comments SODIUM (BEAKER) (test code = 381) 135 meq/L 136-145 L [employer] Worker ID - BSPOCT-GLUCOSE [id number] 19:53:00 Test Item Value Reference Range Interpretation Comments POC-GLUCOSE METER 97 mg/dL 70-110 : TESTED A T [facility] 6720 (BEAKER) (test code = [facility], 1538) [address]: [employer] Worker/Techni sandi ID = [id number] for MARLY MO POCT-GLUCOSE [id number] 18:25:00 Test Item Value Reference Range Interpretation Comments POC-GLUCOSE METER 115 mg/dL 70-110 H : TESTED A T [facility] 6720 (BEAKER) (test code = [facility], 1538) [address]: [employer] Worker/Techni sandi ID = [id number] for BARRENTINE, JULIO PHEN [id number] 17:05:00 Test Item Value Reference Range Interpretation Comments POTASSIUM (BEAKER) (test code = 4.2 meq/L 3.5-5.1 379) [employer] Worker ID - ADMINCALCIUM, [id number] 16:52:00 Test Item Value Reference Range Interpretation Comments CALCIUM IONIZED (BEAKER) (test 1.31 mmol/L 1.12-1.27 H code = 698) PH, BLOOD (BEAKER) (test code = 7.46 1810) POCT-GLUCOSE [id number] 16:51:00 Test Item Value Reference Range Interpretation Comments POC-GLUCOSE METER 129 mg/dL 70-110 H : TESTED A T [facility] 6720 (BEAKER) (test code = [place], 1538) [address]: [employer] Worker/Techni sandi ID = [id number] for BARRENTINE, JULIO PHEN HGB/HCT (H&H)-Stat [id number] 15:05:00 Test Item Value Reference Range Interpretation Comments Hemoglobin (test code = 9.0 See_Comment L [Au tomated message] 786-4) The system [employer] generated this result transmitted ref erence range: 13.0 - 1 6.8 GM/DL. The refe rence range was not u sed to interpret this result as normal/abnor mal. Hematocrit (test code = 26.0 % 40-50 L 4544-3) Lab Interpretation (test Abnormal code = 40935-8) [facility] CenterGlucose-Stat [id number] 15:05:00 Test Item Value Reference Range Interpretation Comments Glucose (test code = 2345-7) 170 mg/dL 70-110 H Lab Interpretation (test code = Abnormal 77401-2) [facility] [id number] 15:05:00 Test Item Value Reference Range Interpretation Comments Sodium (test code = 2951-2) 136 meq/L 136-145 Lab Interpretation (test code = Normal 44994-8) [facility] CenterPotassium-Stat [id number] 15:05:00 Test Item Value Reference Range Interpretation Comments Potassium (test code = 2823-3) 4.1 meq/L 3.6-5.5 Lab Interpretation (test code = Normal 57615-8) [facility] [id number] 15:05:00 Test Item Value Reference Range Interpretation Comments SODIUM (BEAKER) (test code = 381) 136 meq/L 136-145 POTASSIUM-STAT [id number] 15:05:00 Test Item Value Reference Range Interpretation Comments POTASSIUM (BEAKER) (test code = 4.1 meq/L 3.6-5.5 379) BLOOD GAS, [id number] 15:05:00 Test Item Value Reference Range Interpretation [...] (BEAKER) (test code = 1819) 40.0 GLUCOSE-STAT [id number] 15:05:00 Test Item Value Reference Range Interpretation Comments GLUCOSE RANDOM (BEAKER) (test code 170 mg/dL 70-110 H = 652) HGB/HCT (H&H) - STAT [id number] 15:05:00 Test Item Value Reference Range Interpretation Comments HEMOGLOBIN (BEAKER) (test code = 9.0 GM/DL 13.0-16.8 L 410) HEMATOCRIT (BEAKER) (test code = 26.0 % 40.0-50.0 L 411) [id number] 12:12:00 Test Item Value Reference Range Interpretation Comments POTASSIUM (BEAKER) (test code = 4.4 meq/L 3.5-5.1 379) [employer] Worker ID - BSPOCT-GLUCOSE [id number] 11:58:00 Test Item Value Reference Range Interpretation Comments POC-GLUCOSE METER 120 mg/dL 70-110 H : TESTED Barbara T [facility] 6720 (BEAKER) (test code = [place], 1538) [address]: [employer] Worker/Techni sandi ID = [id number] for BARRENTINE, JULIO PHEN POCT-GLUCOSE [id number] 10:39:00 Test Item Value Reference Range Interpretation Comments POC-GLUCOSE METER 129 mg/dL 70-110 H : TESTED A T [facility] 6720 (BEAKER) (test code = [place], 1538) [address]: [employer] Worker/Techni sandi ID = [id number] for SELENE JULIO PHEN HEPATIC FUNCTION [id number] 08:52:00 Test Item Value Reference Range Interpretation [...] (test code = 16 U/L 6-55 347) [employer] Worker ID - [id number] 08:36:00 Test Item Value Reference Range Interpretation Comments MAGNESIUM (BEAKER) (test code = 2.1 mg/dL 1.6-2.6 627) [employer] Worker ID - ADRIANNE [id number] 08:36:00 Test Item Value Reference Range Interpretation Comments PHOSPHORUS (BEAKER) (test code = 4.2 mg/dL 2.3-4.7 604) [employer] Worker ID - NICOROMELIA [id number] 08:36:00 Test Item Value Reference Range Interpretation Comments POTASSIUM (BEAKER) (test code = 4.6 meq/L 3.5-5.1 379) [employer] Worker ID - ADRIANNE [id number] 08:36:00 Test Item Value Reference Range Interpretation Comments SODIUM (BEAKER) (test code = 381) 137 meq/L 136-145 [employer] Worker ID - ADRIANNE LPH, [id number] 08:04:00 Test Item Value Reference Range Interpretation Comments PH ARTERIAL (BEAKER) (test code = 383) 7.47 7.35-7.45 H CALCIUM, [id number] 08:03:00 Test Item Value Reference Range Interpretation Comments CALCIUM IONIZED (BEAKER) (test 1.25 mmol/L 1.12-1.27 code = 698) PH, BLOOD (BEAKER) (test code = 7.47 1810) SARS-COV2/RT-PCR ([facility])2020-09-29 07:37:00 Test Item Value Reference Range Interpretation Comments SARS-COV2/RT-PCR (test See external report Not Detected, code = 5783973) for linked test Negative, See external report for linked test SARS-COV-2 PERFORMING [facility] (test code = 9808280) POCT-GLUCOSE [id number] 05:52:00 Test Item Value Reference Range Interpretation Comments POC-GLUCOSE METER 160 mg/dL 70-110 H : TESTED A T [facility] 67 (BEAKER) (test [facility] = [facility], 1538) [address]: [employer] Worker/Techni sandi ID = [id number] for GERALD NRANDELL POCT-GLUCOSE [id number] 04:59:00 Test Item Value Reference Range Interpretation Comments POC-GLUCOSE METER 151 mg/dL 70-110 H : Pt. on I V insulin: (AKER) (test code = TESTED AT [facility] 6720 1538) [facility], [address]: [employer] Worker/Techni sandi ID = [id number] for TA N, RANDELL NORA RAD, CHEST, 1 VIEW, NON [id number] 04:45:00Reason for exam:->s/p acbShould this be performed at the bedside?->Yes [facility] 1945 Sex: MFINAL REPORT [...] None. Signed: Linda Lopez MDReport Verified Date/Time: 09/29/2020 04:45:24 CBC (HEMOGRAM ONLY)2020-09-29 [...] 0-0 CELLS (BEAKER) (test code = 413) [id number] 04:01:00 Test Item Value Reference Range Interpretation Comments PARTIAL THROMBOPLASTIN TIME 83.5 seconds 22.5-36.0 H (BEAKER) (test code = 760) BASIC METABOLIC [id number] 04:01:00 Test Item Value Reference Range Interpretation [...] S NOT APPLICABLE FOR DIALYSIS PATIEN TS. [employer] Worker ID - YULIANA MPROTHROMBIN TIME/[id number] 03:59:00 Test Item Value Reference Range Interpretation [...] INR is2.5-3.5 for patients wiht mechanical heart valves.[id number] 03:55:00 Test Item Value Reference Range Interpretation Comments MAGNESIUM (BEAKER) (test code = 2.0 mg/dL 1.6-2.6 627) [employer] Worker ID - YULIANA [id number] 03:55:00 Test Item Value Reference Range Interpretation Comments PHOSPHORUS (BEAKER) (test code = 4.3 mg/dL 2.3-4.7 604) [employer] Worker ID - YULIANA MLACTIC ACID, [id number] 03:42:00 Test Item Value Reference Range Interpretation Comments LACTATE BLOOD ARTERIAL (2) 0.8 mmol/L 0.5-2.2 (BEAKER) (test code = 2874) [employer] Worker ID - ADRIANNE LBLOOD GAS, [id number] 03:28:00 Test Item Value Reference Range Interpretation [...] (BEAKER) (test code = 1819) 40.0 GLUCOSE-STAT [id number] 03:28:00 Test Item Value Reference Range Interpretation Comments GLUCOSE RANDOM (BEAKER) (test code 170 mg/dL 70-110 H = 652) HGB/HCT (H&H) - STAT [id number] 03:28:00 Test Item Value Reference Range Interpretation Comments HEMOGLOBIN (BEAKER) (test code = 8.9 GM/DL 13.0-16.8 L 410) HEMATOCRIT (BEAKER) (test code = 26.0 % 40.0-50.0 L 411) SODIUM NA-STAT [id number] 03:27:00 Test Item Value Reference Range Interpretation Comments SODIUM (BEAKER) (test code = 381) 136 meq/L 136-145 POTASSIUM-STAT [id number] 03:27:00 Test Item Value Reference Range Interpretation Comments POTASSIUM (BEAKER) (test code = 4.9 meq/L 3.6-5.5 379) OXYGEN SATURATION, [id number] 03:27:00 Test Item Value Reference Range Interpretation Comments O2 SATURATION (MEASURED) (BEAKER) 80.7 % (test code = 1455) [id number] 00:37:00 Test Item Value Reference Range Interpretation Comments POTASSIUM (BEAKER) (test code = 5.0 meq/L 3.5-5.1 379) [employer] Worker ID - PIAYA LPOCT-GLUCOSE [id number] 00:16:00 Test Item Value Reference Range Interpretation Comments POC-GLUCOSE METER 143 mg/dL 70-110 H : TESTED A T [facility] 6720 (BEAKER) (test code = [place], 1538) [address]: [employer] Worker/Techni sandi ID = [id number] for RANDELL ZEPEDA CALCIUM, [id number] 00:11:00 Test Item Value Reference Range Interpretation Comments CALCIUM IONIZED (BEAKER) (test 1.27 mmol/L 1.12-1.27 code = 698) PH, BLOOD (BEAKER) (test code = 7.44 1810) Prepare [id number] 23:54:00 Test Item Value Reference Range Interpretation Comments CROSSMATCH (test code = 2264) COMPATIBLE Unit ABO (test code = A Pos 4699424) UNIT NUMBER (test code = [id number] 934-0) Status (test code = 1675968) [facility]_TIMEINCBARROW NEUROLOGICAL INSTITUTET Blood Bank Product (test code RED BLOOD CELLS = 2263) PRODUCT CODE (test code = [id number] 933-2) [facility] Center[facility]are [id number] 23:54:00 Test Item Value Reference Range Interpretation Comments Unit ABO (test code = O Pos 1586024) UNIT NUMBER (test code = [id number] 934-0) Status (test code = 0329197) [facility]_TIMEINCBARROW NEUROLOG[facility] INSTITUTET Blood Bank Product (test code CRYOPRECIPITATE = 2263) PRODUCT CODE (test code = [id number] 933-2) [facility] Center[facility] [id number] 23:54:00 Test Item Value Reference Range Interpretation Comments Unit ABO (test code = 8605642) A Pos UNIT NUMBER (test code = [id number] 934-0) Status (test code = 8995675) TX_TIMEINCHART Blood Bank Product (test code FFP = 2263) PRODUCT CODE (test code = [id number] 933-2) [facility] Center[facility] [id number] 23:54:00 Test Item Value Reference Range Interpretation Comments Unit ABO (test code = 8028657) O Pos UNIT NUMBER (test code = [id number] 934-0) Status (test code = 6923657) [place]_TIMEINCHART Blood Bank Product (test code PLATELETS = 2263) PRODUCT CODE (test code = A9441E19 933-2) [facility] [id number] 20:30:00 Test Item Value Reference Range Interpretation Comments MAGNESIUM (BEAKER) (test code = 1.9 mg/dL 1.6-2.6 627) [employer] Worker ID - [id number] 20:30:00 Test Item Value Reference Range Interpretation Comments PHOSPHORUS (BEAKER) (test code = 3.6 mg/dL 2.3-4.7 604) [employer] Worker ID - [id number] 20:30:00 Test Item Value Reference Range Interpretation Comments POTASSIUM (BEAKER) (test code = 5.0 meq/L 3.5-5.1 379) [employer] Worker ID - [id number] 20:30:00 Test Item Value Reference Range Interpretation Comments SODIUM (BEAKER) (test code = 381) 140 meq/L 136-145 [employer] Worker ID - ADMINPOCT-GLUCOSE [id number] 20:17:00 Test Item Value Reference Range Interpretation Comments POC-GLUCOSE METER 125 mg/dL 70-110 H : TESTED A T [facility] 6720 (BEAKER) (test code = [place], 1538) [address]: [employer] Worker/Techni sandi ID = [id number] for RANDELL ZEPEDA PH, [id number] 20:05:00 Test Item Value Reference Range Interpretation Comments PH ARTERIAL (BEAKER) (test code = 383) 7.45 7.35-7.45 2D Echo W/Doppler(CW/PW/Color)2020-09-28 19:35:20Ejection FractionSLEH ECHO HEARTLAB MKCKESSON CPACSInterface, External Ris In - 09/28/2020 7:35 PM C STTransthoracic Echocardiography Report (TTE) Demographics Patient Name KODI MORAN Date of Study 09/28/2020 PAR[place] Gender Male Visit Number [id number] Race Unknown Room Number 2C23 Number Date of 1945 Referring Humera Melgar Physician MD Bryant Age 75 year(s) Radiation Officer Ofelia Dietz [facility] Interpreting Leonie Garcia MD Physician Fellow Ceasar [...] comparison. Signature Santa ctronically signed by Leonie Garcia MD(Interpreting physician) on 09/28/2020 07:35 PM ------- [...] RA pressure by IVC dynamics 10mmHg . [facility] Left At[facility] LA Volume: [...] TR Velocity: 3.21 m/s TR Gradient: 41.28 mmHgChino Valley Medical CenterRAD, CHEST, 1 VIEW, NON [id number] 19:28:00Reason for exam:- >IABP positionShould this be performed at the bedside?->Yes [facility] : 1945 Sex: MFINAL REPORT Chest dated 09/28/2020 COMPARISON: Same day Clinical Information: IABP position Comment: Heart is enlarged. Pulmonary vasculature is indistinct. Interstitial disease is seen bilaterally suggestive of vascular congestion or pulmonary edema. No pleural effusion or pneumothorax is seen. Endotracheal tube, Penrose-Boris catheter, mediastinal tube, nasogastric tube, left chest tube, and intra-aortic balloon pump device remain in place. There is no interval change in the position of the intra-aortic pump device. Signed: Linda Metcalf MDReport Verified Date/Time:09/28/2020 19:28:22 Reading Location: [address] Consult Reading Room POCT-GLUCOSE [id number] 18:16:00 Test Item Value Reference Range Interpretation Comments POC-GLUCOSE METER 115 mg/dL 70-110 H : TESTED A T [facility] 6720 (BEAKER) (test code = [facility], 1538) [address]: [employer] Worker/Techni sandi ID = [id number] for NG BRAYAN, AMOS POCT-GLUCOSE [id number] 17:12:00 Test Item Value Reference Range Interpretation Comments POC-GLUCOSE METER 111 mg/dL 70-110 H : TESTED A T [facility] 6720 (BEAKER) (test code = [facility], 1538) 06119: [employer] Worker/Techni sandi ID = [id number] for NG BRAYAN, AMOS [id number] 16:23:00 Test Item Value Reference Range Interpretation Comments POTASSIUM (BEAKER) (test code = 4.8 meq/L 3.5-5.1 379) [employer] Worker ID - ADMINLACTIC ACID, [id number] 16:23:00 Test Item Value Reference Range Interpretation Comments LACTATE BLOOD ARTERIAL (2) 0.9 mmol/L 0.5-2.2 (BEAKER) (test code = 2874) [employer] Worker ID - ADMINPOCT-GLUCOSE [id number] 16:10:00 Test Item Value Reference Range Interpretation Comments POC-GLUCOSE METER 105 mg/dL 70-110 : TESTED A T [facility] 6720 (BEAKER) (test code = [facility], 153) [address]: [employer] Worker/Techni sandi ID = [id number] for NG BRAYAN, AMOS CALCIUM, [id number] 16:02:00 Test Item Value Reference Range Interpretation Comments CALCIUM IONIZED (BEAKER) (test 1.19 mmol/L 1.12-1.27 code = 698) PH, BLOOD (AKER) (test code = 7.47 1810) POCT-GLUCOSE [id number] 15:22:00 Test Item Value Reference Range Interpretation Comments POC-GLUCOSE METER 94 mg/dL 70-110 : TESTED A T [facility] 6720 ([facility]) (test code = [facility], 1538) 98292: [employer] Worker/Techni sandi ID = [id number] for NGUY EN, AMOS POCT-GLUCOSE [id number] 15:22:00 Test Item Value Reference Range Interpretation Comments POC-GLUCOSE METER 83 mg/dL 70-110 : TESTED A T [facility] 6720 ([facility]) (test code = [facility], 153) 18166: [employer] Worker/Techni sandi ID = [id number] for NGUY EN, AMOS LACTIC ACID, [id number] 12:56:00 Test Item Value Reference Range Interpretation Comments LACTATE BLOOD ARTERIAL (2) 1.1 mmol/L 0.5-2.2 (AKER) (test code = 2874) [employer] Worker ID - MARC [id number] 12:26:00 Test Item Value Reference Range Interpretation Comments POTASSIUM (BEAKER) (test code = 4.6 meq/L 3.5-5.1 379) [employer] Worker ID - MARC CPOCT-GLUCOSE [id number] 12:13:00 Test Item Value Reference Range Interpretation Comments POC-GLUCOSE METER 110 mg/dL 70-110 : TESTED A T [facility] 6720 (BEAKER) (test code = [facility], 1538) 36257: [employer] Worker/Techni sandi ID = [id number] for NG BRAYAN, AMOS POCT-GLUCOSE [id number] 10:30:00 Test Item Value Reference Range Interpretation Comments POC-GLUCOSE METER 125 mg/dL 70-110 H : TESTED A T [facility] 6720 (BEAKER) (test code = [facility], 1538) [address]74: [employer] Worker/Techni sandi ID = [id number] for NG BRAYAN, AMOS POCT-GLUCOSE [id number] 09:28:00 Test Item Value Reference Range Interpretation Comments POC-GLUCOSE METER 131 mg/dL 70-110 H : TESTED A T [facility] 6720 (BEAKER) (test code = [place], 1538) [address]: [employer] Worker/Techni sandi ID = [id number] for NG BRAYAN, AMOS RAD, CHEST, 1 VIEW, NON [id number] 08:56:00Reason for exam:->s/p acbShould this be performed at the bedside?->Yes [facility] 1945 Sex: MFINAL [...] Babcock Verified Date/Time: 09/28/2020 08:56:48 Reading Location: [facility] Radiology Reading Room POCT-GLUCOSE [id number] 08:12:00 Test Item Value Reference Range Interpretation Comments POC-GLUCOSE METER 128 mg/dL 70-110 H : [facility] (BEAKER) (test code = [facility], 153) 24931: [employer] Worker/Techni sandi ID = [id number] for NG BRAYAN, AMOS CALCIUM, [id number] 08:09:00 Test Item Value Reference Range Interpretation Comments CALCIUM IONIZED (BEAKER) (test 1.15 mmol/L 1.12-1.27 code = 698) PH, BLOOD (BEAKER) (test code = 7.48 1810) POCT-GLUCOSE [id number] 07:06:00 Test Item Value Reference Range Interpretation Comments POC-GLUCOSE METER 103 mg/dL 70-110 : [facility] (BEAKER) (test code = [facility], 153) 15906: [employer] Worker/Techni sandi ID = [id number] for NG BRAYAN, AMOS POCT-GLUCOSE [id number] 06:32:00 Test Item Value Reference Range Interpretation Comments POC-GLUCOSE METER 81 mg/dL 70-110 : TESTED A T [facility] 6720 (BEAKER) (test code = [facility], 153) 815[address]: [employer] Worker/Techni sandi ID = [id number] for ESTEFANIA FORD (V) NAYELY POC ACTIVATED CLOTTING [id number] 06:25:00 Test Item Value Reference Range Interpretation Comments Activated Clotting Time 120 sec : 74 -137 seconds, (test code = 441) Baseline: TESTED AT [address], [address]: [employer] Worker/Techni sandi ID = [id number] for Pascual Montiel [id number] 06:25:00 Test Item Value Reference Range Interpretation Comments ACTIVATED CLOTTING TIME 120 sec : 74 -137 seconds, (BEAKER) (test code = Baseli ne: TESTED AT 441) [address], 770 30: [employer] Worker/Techni sandi ID = [id number] for Evan Saleh is [id number] 06:25:00 Test Item Value Reference Range Interpretation Comments ACTIVATED CLOTTING TIME 538 sec : 74 -137 seconds, (BEAKER) (test code = Baseli ne: TESTED AT 441) [address], 770 30: [employer] Worker/Techni sandi ID = [id number] for Evan Saleh is [id number] 06:25:00 Test Item Value Reference Range Interpretation Comments ACTIVATED CLOTTING TIME 626 sec : 74 -137 seconds, (BEAKER) (test code = Baseli ne: TESTED AT 441) [address], [address]70 30: [employer] Worker/Techni sandi ID = [id number] for Evan Saleh is [id number] 06:25:00 Test Item Value Reference Range Interpretation Comments ACTIVATED CLOTTING TIME 725 sec : 74 -137 seconds, (BEAKER) (test code = Baseli ne: TESTED AT 441) [address], 770 30: [employer] Worker/Techni sandi ID = [id number] for Evan Saleh is [id number] 06:24:00 Test Item Value Reference Range Interpretation Comments ACTIVATED CLOTTING TIME 615 sec : 74 -137 seconds, (BEAKER) (test code = Baseli ne: TESTED AT 441) [address], 770 30: [employer] Worker/Techni sandi ID = [id number] for Evan Saleh is [id number] 06:24:00 Test Item Value Reference Range Interpretation Comments ACTIVATED CLOTTING TIME 604 sec : 74 -137 seconds, (BEAKER) (test code = Baseli ne: TESTED AT 441) [address], [facility] 30: [employer] Worker/Techni sandi ID = [id number] for Evan Saleh is LACTIC ACID, [id number] 05:49:00 Test Item Value Reference Range Interpretation Comments LACTATE BLOOD ARTERIAL (2) 4.8 mmol/L 0.5-2.2 HH (BEAKER) (test code = 2874) [employer] Worker ID - YULIANA MPOCT-GLUCOSE [id number] 05:26:00 Test Item Value Reference Range Interpretation Comments POC-GLUCOSE METER 108 mg/dL 70-110 : TESTED A T [place] [address] (BEAKER) (test code = [facility], 1538) 10678: [employer] Worker/Techni sandi ID = [id number] for KALPESH YVROSE (V) NAYELY [id number] 05:21:00 Test Item Value Reference Range Interpretation Comments MAGNESIUM (BEAKER) (test code = 2.2 mg/dL 1.6-2.6 627) [employer] Worker ID - YULIANA [id number] 05:21:00 Test Item Value Reference Range Interpretation Comments PHOSPHORUS (BEAKER) (test code = 4.8 mg/dL 2.3-4.7 H 604) [employer] Worker ID - YULIANA MBASIC METABOLIC [id number] 05:21:00 Test Item Value Reference Range Interpretation [...] S NOT APPLICABLE FOR DIALYSIS PATIEN TS. [employer] Worker ID - YULIANA [id number] 05:09:00 Test Item Value Reference Range Interpretation Comments PARTIAL THROMBOPLASTIN TIME 82.7 seconds 22.5-36.0 H (BEAKER) (test code = 760) PROTHROMBIN [id number] 05:07:00 Test Item Value Reference Range Interpretation [...] (BEAKER) (test code = 413) OXYGEN SATURATION, [id number] 04:47:00 Test Item Value Reference Range Interpretation Comments O2 SATURATION (MEASURED) (BEAKER) 85.2 % (test code = 1455) HGB/HCT (H&H) - STAT [id number] 04:43:00 Test Item Value Reference Range Interpretation Comments HEMOGLOBIN (BEAKER) (test code = 9.3 GM/DL 13.0-16.8 L 410) HEMATOCRIT (BEAKER) (test code = 27.0 % 40.0-50.0 L 411) BLOOD GAS, [id number] 04:42:00 Test Item Value Reference Range Interpretation [...] (BEAKER) (test code = 1819) 40.0 GLUCOSE-STAT [id number] 04:42:00 Test Item Value Reference Range Interpretation Comments GLUCOSE RANDOM (BEAKER) (test code 124 mg/dL 70-110 H = 652) SODIUM NA-STAT [id number] 04:39:00 Test Item Value Reference Range Interpretation Comments SODIUM (BEAKER) (test code = 381) 141 meq/L 136-145 POTASSIUM-STAT [id number] 04:39:00 Test Item Value Reference Range Interpretation Comments POTASSIUM (BEAKER) (test code = 4.2 meq/L 3.6-5.5 379) RAD, CHEST, 1 VIEW, NON [id number] 04:22:00while patient is intubated or has chest tubes.Reason for exam:->Status post CV SurgeryShould thisbe performed at the bedside?->Yes [facility] [place] : 1945 Sex: MFINAL REPORT RAD, [...] MDReport Verified Date/Time: 09/28/2020 04:22:55 LACTIC ACID, [id number] 04:06:00 Test Item Value Reference Range Interpretation Comments LACTATE BLOOD ARTERIAL (2) 6.1 mmol/L 0.5-2.2 HH (BEAKER) (test code = 2874) [employer] Worker ID - YULIANA MBLOOD GAS, [id number] 02:49:00 Test Item Value Reference Range Interpretation [...] (BEAKER) (test code = 1819) 50.0 GLUCOSE-STAT [id number] 02:49:00 Test Item Value Reference Range Interpretation Comments GLUCOSE RANDOM (BEAKER) (test code 146 mg/dL 70-110 H = 652) HGB/HCT (H&H) - STAT [id number] 02:49:00 Test Item Value Reference Range Interpretation Comments HEMOGLOBIN (BEAKER) (test code = 9.3 GM/DL 13.0-16.8 L 410) HEMATOCRIT (BEAKER) (test code = 27.0 % 40.0-50.0 L 411) SODIUM NA-STAT [id number] 02:48:00 Test Item Value Reference Range Interpretation Comments SODIUM (BEAKER) (test code = 381) 141 meq/L 136-145 POTASSIUM-STAT [id number] 02:48:00 Test Item Value Reference Range Interpretation Comments POTASSIUM (BEAKER) (test code = 4.1 meq/L 3.6-5.5 379) CALCIUM, [id number] 02:48:00 Test Item Value Reference Range Interpretation Comments CALCIUM IONIZED (BEAKER) (test 1.18 mmol/L 1.12-1.27 code = 698) PH, BLOOD (BEAKER) (test code = 7.40 1810) LACTIC ACID, [id number] 00:47:00 Test Item Value Reference Range Interpretation Comments LACTATE BLOOD ARTERIAL (2) 7.1 mmol/L 0.5-2.2 HH (BEAKER) (test code = 2874) [employer] Worker ID - BSSpecimen slightly ictericSODIUM NA-STAT [id number] 00:07:00 Test Item Value Reference Range Interpretation Comments SODIUM (BEAKER) (test code = 381) 141 meq/L 136-145 POTASSIUM-STAT [id number] 00:07:00 Test Item Value Reference Range Interpretation Comments POTASSIUM (BEAKER) (test code = 4.4 meq/L 3.6-5.5 379) BLOOD GAS, [id number] 00:07:00 Test Item Value Reference Range Interpretation [...] (BEAKER) (test code = 1819) 70.0 GLUCOSE-STAT [id number] 00:07:00 Test Item Value Reference Range Interpretation Comments GLUCOSE RANDOM (BEAKER) (test code 184 mg/dL 70-110 H = 652) HGB/HCT (H&H) - STAT [id number] 00:07:00 Test Item Value Reference Range Interpretation Comments HEMOGLOBIN (BEAKER) (test code = 9.5 GM/DL 13.0-16.8 L 410) HEMATOCRIT (BEAKER) (test code = 28.0 % 40.0-50.0 L 411) RAD, CHEST, 1 VIEW, NON [id number] 23:16:00Reason for exam:->iabp repositioningShould this be performed at the bedside?->Yes [facility] 1945 Sex: MFINAL [...] Verified Date/Time: 09/27/2020 23:16:55 Hepatitis B surface [id number] 22:40:00 Test Item Value Reference Range Interpretation Comments HBsAg Screen (test code Nonreactive Nonreactive = 5195-3) SID (test code = SID) Specimen is considered negative for HBsAg. Lab Interpretation (test Normal code = 85652-9) [facility] [id number] 22:40:00 Test Item Value Reference Range Interpretation Comments HEPATITIS B SURFACE ANTIGEN (2) Nonreactive Nonreactive (BEAKER) (test code = 2585) Specimen is considered negative for HBsAg.RAD, CHEST, 1 VIEW, NON [id number] 22:39:00Reason for exam:->Status post CV Surgery post op day 0Should this be performed at the bedside?->Yes [facility] : 1945 Sex: MFINAL [...] for which advancement is recommended. Right IJ Penrose-Boris catheter tip overlies the right pulmonary artery. [...] % 0.0-5.0 code = 1414) LACTIC ACID, [id number] 22:19:00 Test Item Value Reference Range Interpretation Comments LACTATE BLOOD ARTERIAL (2) 8.9 mmol/L 0.5-2.2 HH (BEAKER) (test code = 2874) [employer] Worker ID - BSSpecimen slightly [id number] 22:13:00 Test Item Value Reference Range Interpretation Comments Glucose (test code = 2345-7) 233 mg/dL 70-105 H SID (test code = SID) [employer] Worker ID - BS Lab Interpretation (test Abnormal code = 66868-7) [facility] CenterPOT[facility]SIUM2020-12-15 22:13:00 Test Item Value Reference Range Interpretation Comments POTASSIUM (BEAKER) (test code = 4.9 meq/L 3.5-5.1 379) [employer] Worker ID - [id number] 22:13:00 Test Item Value Reference Range Interpretation Comments GLUCOSE RANDOM (BEAKER) (test code 233 mg/dL 70-105 H = 652) [employer] Worker ID - BSSODIUM NA-STAT [id number] 21:58:00 Test Item Value Reference Range Interpretation Comments SODIUM (BEAKER) (test code = 381) 141 meq/L 136-145 POTASSIUM-STAT [id number] 21:58:00 Test Item Value Reference Range Interpretation Comments POTASSIUM (BEAKER) (test code = 4.7 meq/L 3.6-5.5 379) CALCIUM, [id number] 21:58:00 Test Item Value Reference Range Interpretation Comments CALCIUM IONIZED (BEAKER) (test 1.14 mmol/L 1.12-1.27 code = 698) PH, BLOOD (BEAKER) (test code = 7.30 1810) BLOOD GAS, [id number] 21:58:00 Test Item Value Reference Range Interpretation [...] (BEAKER) (test code = 1819) 70.0 GLUCOSE-STAT [id number] 21:58:00 Test Item Value Reference Range Interpretation Comments GLUCOSE RANDOM (BEAKER) (test code 218 mg/dL 70-110 H = 652) HGB/HCT (H&H) - STAT [id number] 21:58:00 Test Item Value Reference Range Interpretation Comments HEMOGLOBIN (BEAKER) (test code = 9.4 GM/DL 13.0-16.8 L 410) HEMATOCRIT (BEAKER) (test code = 28.0 % 40.0-50.0 L 411) Manual [id number] 21:02:00 Test Item Value Reference Range Interpretation [...] Ovalocytes (test code = 1+ few 477) [place] Cells (test code = 1+ few 474) Platelet Conc (test code Adequate = 3438) SID (test code = SID) [employer] Worker ID - ofelia Kemp comments: Slide comments: Lab Interpretation (test Abnormal code = 97848-7) [facility](CELLAVISION MANUAL DIFF)2020-09-27 21:02:00 Test Item Value Reference [...] CONCENTRATION Adequate (CELLAVISION)(BEAKER) (test code = 3438) [employer] Worker ID - ofelia Kemp comments: Slide comments:Troponin [id number] 20:47:00 Test Item Value Reference Range Interpretation Comments Troponin I (test code = 11.20 ng/mL 0-0.03 02418-7) SID (test code = SID) Troponin I [...] BS Lab Interpretation (test Abnormal code = 06931-9) [facility] CenterTROPONIN [id number] 20:47:00 Test Item Value Reference Range Interpretation Comments TROPONIN I (BEAKER) (test code = 11.20 ng/mL 0.00-0.03 397) Troponin I (TnI) levels must be [...] failure, acidosis, acute neurological disease, and persistent tachyarrhythmia.[employer] Worker ID - BSLACTIC ACID, ARTERIAL 2020-09-27 20:38:00 Test Item Value Reference Range Interpretation Comments LACTATE BLOOD ARTERIAL (2) 7.6 mmol/L 0.5-2.2 HH (BEAKER) (test code = 2874) [employer] Worker ID - BSCBC W/PLT COUNT & AUTO [id number] 20:38:00 Test Item Value Reference Range Interpretation [...] (BEAKER) (test code = 413) BASIC METABOLIC [id number] 20:38:00 Test Item Value Reference Range Interpretation [...] S NOT APPLICABLE FOR DIALYSIS PATIEN TS. [employer] Worker ID - [id number] 20:36:00 Test Item Value Reference Range Interpretation Comments MAGNESIUM (BEAKER) (test code = 2.6 mg/dL 1.6-2.6 627) [employer] Worker ID - [id number] 20:36:00 Test Item Value Reference Range Interpretation Comments PHOSPHORUS (BEAKER) (test code = 8.7 mg/dL 2.3-4.7 H 604) [employer] Worker ID - [id number] 20:25:00 Test Item Value Reference Range Interpretation Comments PARTIAL THROMBOPLASTIN TIME 75.2 seconds 22.5-36.0 H (BEAKER) (test code = 760) PROTHROMBIN [id number] 20:24:00 Test Item Value Reference Range Interpretation [...] INR is2.5-3.5 for patients wiht mechanical heart valves.[id number] 20:24:00 Test Item Value Reference Range Interpretation Comments FIBRINOGEN LEVEL (BEAKER) (test 530 mg/dl 225-434 H code = 658) CBC W/PLT COUNT & AUTO [id number] 20:08:00 Test Item Value Reference Range Interpretation [...] (BEAKER) (test code = 2801) BLOOD GAS, [id number] 19:58:00 Test Item Value Reference Range Interpretation [...] (test code = 1819) 70.0 OXYGEN SATURATION, [id number] 19:57:00 Test Item Value Reference Range Interpretation Comments O2 SATURATION (MEASURED) (BEAKER) 87.8 % (test code = 1455) BLOOD GAS, [id number] 19:00:00 Test Item Value Reference Range Interpretation [...] (BEAKER) (test code = 1819) 100.0 GLUCOSE-STAT [id number] 19:00:00 Test Item Value Reference Range Interpretation Comments GLUCOSE RANDOM (BEAKER) (test code 208 mg/dL 70-110 H = 652) HGB/HCT (H&H) - STAT [id number] 19:00:00 Test Item Value Reference Range Interpretation Comments HEMOGLOBIN (BEAKER) (test code = 9.5 GM/DL 13.0-16.8 L 410) HEMATOCRIT (BEAKER) (test code = 28.0 % 40.0-50.0 L 411) CALCIUM, [id number] 19:00:00 Test Item Value Reference Range Interpretation Comments CALCIUM IONIZED (BEAKER) (test 1.11 mmol/L 1.12-1.27 L code = 698) PH, BLOOD (BEAKER) (test code = 7.28 1810) SODIUM NA-STAT [id number] 18:59:00 Test Item Value Reference Range Interpretation Comments SODIUM (BEAKER) (test code = 381) 139 meq/L 136-145 POTASSIUM-STAT [id number] 18:59:00 Test Item Value Reference Range Interpretation Comments POTASSIUM (BEAKER) (test code = 4.6 meq/L 3.6-5.5 379) [id number] 18:22:00 Test Item Value Reference Range Interpretation Comments PARTIAL THROMBOPLASTIN TIME 88.5 seconds 22.5-36.0 H (BEAKER) (test code = 760) [id number] 18:21:00 Test Item Value Reference Range Interpretation Comments FIBRINOGEN LEVEL (BEAKER) (test 444 mg/dl 225-434 H code = 658) PROTHROMBIN TIME/[id number] 18:20:00 Test Item Value Reference Range Interpretation [...] is2.5-3.5 for patients wiht mechanical heart valves.PLATELET [id number] 18:13:00 Test Item Value Reference Range Interpretation Comments PLATELET COUNT (BEAKER) (test 127 K/CU MM 150-450 L code = 756) [employer] Worker ID - [id number] 18:10:14Mehul Otero MD 09/27/2020 6:52 PMTEE Pre Intervention Summary: Post Intervention Summary: S/P ACB x4 Preserved LV and RV function.No changes in TV and MV function. 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 No change in perivalvular AI as compaired to preop cardiology examNo evidence of aortic dissection. No pericardial effusion.[facility] CenterCALCIUM, [id number] 18:07:00 Test Item Value Reference Range Interpretation Comments CALCIUM IONIZED (BEAKER) (test 1.15 mmol/L 1.12-1.27 code = 698) PH, BLOOD (BEAKER) (test code = 7.32 1810) BLOOD GAS, [id number] 18:07:00 Test Item Value Reference Range Interpretation [...] (BEAKER) (test code = 1819) 94.0 GLUCOSE-STAT [id number] 18:07:00 Test Item Value Reference Range Interpretation Comments GLUCOSE RANDOM (BEAKER) (test code 199 mg/dL 70-110 H = 652) HGB/HCT (H&H) - STAT [id number] 18:07:00 Test Item Value Reference Range Interpretation Comments HEMOGLOBIN (BEAKER) (test code = 7.5 GM/DL 13.0-16.8 L 410) HEMATOCRIT (BEAKER) (test code = 22.0 % 40.0-50.0 L 411) SODIUM NA-STAT [id number] 18:06:00 Test Item Value Reference Range Interpretation Comments SODIUM (BEAKER) (test code = 381) 138 meq/L 136-145 POTASSIUM-STAT [id number] 18:06:00 Test Item Value Reference Range Interpretation Comments POTASSIUM (BEAKER) (test code = 4.8 meq/L 3.6-5.5 379) CALCIUM, [id number] 17:45:00 Test Item Value Reference Range Interpretation Comments CALCIUM IONIZED (BEAKER) (test 1.11 mmol/L 1.12-1.27 L code = 698) PH, BLOOD (BEAKER) (test code = 7.32 1810) BLOOD GAS, [id number] 17:45:00 Test Item Value Reference Range Interpretation [...] (BEAKER) (test code = 1819) 94.0 GLUCOSE-STAT [id number] 17:45:00 Test Item Value Reference Range Interpretation Comments GLUCOSE RANDOM (BEAKER) (test code 206 mg/dL 70-110 H = 652) HGB/HCT (H&H) - STAT [id number] 17:45:00 Test Item Value Reference Range Interpretation Comments HEMOGLOBIN (BEAKER) (test code = 8.1 GM/DL 13.0-16.8 L 410) HEMATOCRIT (BEAKER) (test code = 24.0 % 40.0-50.0 L 411) SODIUM NA-STAT [id number] 17:44:00 Test Item Value Reference Range Interpretation Comments SODIUM (BEAKER) (test code = 381) 137 meq/L 136-145 POTASSIUM-STAT [id number] 17:44:00 Test Item Value Reference Range Interpretation Comments POTASSIUM (BEAKER) (test code = 5.3 meq/L 3.6-5.5 379) BLOOD GAS, [id number] 16:56:00 Test Item Value Reference Range Interpretation [...] (BEAKER) (test code = 1819) 70.0 GLUCOSE-STAT [id number] 16:56:00 Test Item Value Reference Range Interpretation Comments GLUCOSE RANDOM (BEAKER) (test code 190 mg/dL 70-110 H = 652) HGB/HCT (H&H) - STAT [id number] 16:56:00 Test Item Value Reference Range Interpretation Comments HEMOGLOBIN (BEAKER) (test code = 8.9 GM/DL 13.0-16.8 L 410) HEMATOCRIT (BEAKER) (test code = 26.0 % 40.0-50.0 L 411) POTASSIUM-STAT [id number] 16:56:00 Test Item Value Reference Range Interpretation Comments POTASSIUM (BEAKER) (test code = 6.3 meq/L 3.6-5.5 HH 379) SODIUM NA-STAT [id number] 16:55:00 Test Item Value Reference Range Interpretation Comments SODIUM (BEAKER) (test code = 381) 135 meq/L 136-145 L BLOOD GAS, [id number] 16:20:00 Test Item Value Reference Range Interpretation [...] (test code = 1819) 60.0 SODIUM NA-STAT [id number] 16:20:00 Test Item Value Reference Range Interpretation Comments SODIUM (BEAKER) (test code = 381) 134 meq/L 136-145 L POTASSIUM-STAT [id number] 16:20:00 Test Item Value Reference Range Interpretation Comments POTASSIUM (BEAKER) (test code = 6.4 meq/L 3.6-5.5 HH 379) GLUCOSE-STAT [id number] 16:20:00 Test Item Value Reference Range Interpretation Comments GLUCOSE RANDOM (BEAKER) (test code 206 mg/dL 70-110 H = 652) HGB/HCT (H&H) - STAT [id number] 16:20:00 Test Item Value Reference Range Interpretation Comments HEMOGLOBIN (BEAKER) (test code = 8.1 GM/DL 13.0-16.8 L 410) HEMATOCRIT (BEAKER) (test code = 24.0 % 40.0-50.0 L 411) BLOOD GAS, [id number] 15:49:00 Test Item Value Reference Range Interpretation [...] (test code = 1819) 60.0 SODIUM NA-STAT [id number] 15:49:00 Test Item Value Reference Range Interpretation Comments SODIUM (BEAKER) (test code = 381) 134 meq/L 136-145 L POTASSIUM-STAT [id number] 15:49:00 Test Item Value Reference Range Interpretation Comments POTASSIUM (BEAKER) (test code = 7.1 meq/L 3.6-5.5 HH 379) GLUCOSE-STAT [id number] 15:49:00 Test Item Value Reference Range Interpretation Comments GLUCOSE RANDOM (BEAKER) (test code 207 mg/dL 70-110 H = 652) HGB/HCT (H&H) - STAT [id number] 15:49:00 Test Item Value Reference Range Interpretation Comments HEMOGLOBIN (BEAKER) (test code = 9.0 GM/DL 13.0-16.8 L 410) HEMATOCRIT (BEAKER) (test code = 26.0 % 40.0-50.0 L 411) BLOOD GAS, [id number] 15:20:00 Test Item Value Reference Range Interpretation [...] (test code = 1819) 80.0 SODIUM NA-STAT [id number] 15:20:00 Test Item Value Reference Range Interpretation Comments SODIUM (BEAKER) (test code = 381) 134 meq/L 136-145 L POTASSIUM-STAT [id number] 15:20:00 Test Item Value Reference Range Interpretation Comments POTASSIUM (BEAKER) (test code = 6.1 meq/L 3.6-5.5 HH 379) GLUCOSE-STAT [id number] 15:20:00 Test Item Value Reference Range Interpretation Comments GLUCOSE RANDOM (BEAKER) (test code 140 mg/dL 70-110 H = 652) HGB/HCT (H&H) - STAT [id number] 15:20:00 Test Item Value Reference Range Interpretation Comments HEMOGLOBIN (BEAKER) (test code = 8.8 GM/DL 13.0-16.8 L 410) HEMATOCRIT (BEAKER) (test code = 26.0 % 40.0-50.0 L 411) BLOOD GAS, [id number] 14:48:00 Test Item Value Reference Range Interpretation [...] (test code = 1819) 94.0 SODIUM NA-STAT [id number] 14:48:00 Test Item Value Reference Range Interpretation Comments SODIUM (BEAKER) (test code = 381) 133 meq/L 136-145 L GLUCOSE-STAT [id number] 14:48:00 Test Item Value Reference Range Interpretation Comments GLUCOSE RANDOM (BEAKER) (test code 117 mg/dL 70-110 H = 652) HGB/HCT (H&H) - STAT [id number] 14:48:00 Test Item Value Reference Range Interpretation Comments HEMOGLOBIN (BEAKER) (test code = 9.7 GM/DL 13.0-16.8 L 410) HEMATOCRIT (BEAKER) (test code = 29.0 % 40.0-50.0 L 411) POTASSIUM-STAT [id number] 14:48:00 Test Item Value Reference Range Interpretation Comments POTASSIUM (BEAKER) (test code = 6.0 meq/L 3.6-5.5 HH 379) CALCIUM, [id number] 14:44:00 Test Item Value Reference Range Interpretation Comments CALCIUM IONIZED (BEAKER) (test 1.10 mmol/L 1.12-1.27 L code = 698) PH, BLOOD (BEAKER) (test code = 7.32 1810) CALCIUM, [id number] 13:43:00 Test Item Value Reference Range Interpretation Comments CALCIUM IONIZED (BEAKER) (test 1.14 mmol/L 1.12-1.27 code = 698) PH, BLOOD (BEAKER) (test code = 7.33 1810) GLUCOSE-STAT [id number] 13:42:00 Test Item Value Reference Range Interpretation Comments GLUCOSE RANDOM (BEAKER) (test code 100 mg/dL 70-110 = 652) BLOOD GAS, [id number] 13:42:00 Test Item Value Reference Range Interpretation [...] = 1819) 96.0 HGB/HCT (H&H) - STAT [id number] 13:42:00 Test Item Value Reference Range Interpretation Comments HEMOGLOBIN (BEAKER) (test code = 9.3 GM/DL 13.0-16.8 L 410) HEMATOCRIT (BEAKER) (test code = 27.0 % 40.0-50.0 L 411) SODIUM NA-STAT [id number] 13:42:00 Test Item Value Reference Range Interpretation Comments SODIUM (BEAKER) (test code = 381) 133 meq/L 136-145 L POTASSIUM-STAT [id number] 13:42:00 Test Item Value Reference Range Interpretation Comments POTASSIUM (BEAKER) (test code = 5.6 meq/L 3.6-5.5 H 379) Hemoglobin [id number] 13:02:00 Test Item Value Reference Range Interpretation Comments Hemoglobin A1C (test code = 4548-4) 6.1 % 4.3-6.1 Lab Interpretation (test code = Normal 56190-9) [facility]MO[facility] [id number] 13:02:00 Test Item Value Reference Range Interpretation Comments HEMOGLOBIN A1C (BEAKER) (test code = 6.1 % 4.3-6.1 368) Type and screen, [id number] 12:47:00 Test Item Value Reference Range Interpretation Comments ABO/RH AUTOMATED ([facility]) (test A POSITIVE code = 2260) Ab Scrn (test code = 890-4) NEGATIVE [facility] CenterTROPONIN [id number] 12:37:00 Test Item Value Reference Range Interpretation Comments TROPONIN I ([facility]) (test code = 7.22 ng/mL 0.00-0.03 HH [...] failure, acidosis, acute neurological disease, and persistent tachyarrhythmia.[employer] Worker ID - EVELIA FINCH, manual 2020-09-27 12:32:00 Test Item Value Reference Range Interpretation Comments ABO Grouping (test code = 2588) A Rh Factor (test code = 2589) POS [facility] CenterAPTT2020-12-[facility] 12:32:00 Test Item Value Reference Range Interpretation Comments PARTIAL THROMBOPLASTIN TIME 87.4 seconds 22.5-36.0 H (BEAKER) (test code = 760) Lipid [id number] 12:26:00 Test Item Value Reference Range Interpretation Comments Triglycerides (test 120 mg/dL code = 2571-8) Cholesterol (test code 106 mg/dL = 2093-3) HDL (test code = 24 mg/dL 5-9) LDL Calculated (test 58 mg/dL code = 16830-5) SID (test code = SID) Triglyceride Reference Range: Low Risk <150 Borderline 150-199 High Risk 200-499 Very High Risk >=500 Cholesterol Reference Range: Low Risk <200 Borderline 200-239 High Risk >240 HDL Cholesterol Reference Range: Low Risk >=60 High Risk <40 LDL Cholesterol Reference Range: Optimal <100 Near Optimal 100-129 Borderline 130-159 High 160-189 Very High >=190 [employer] Worker ID - EVELIA [place] [facility] CenterLIPID [id number] 12:26:00 Test Item Value Reference Range Interpretation Comments TRIGLYCERIDES ([facility]) (test code = 120 mg/dL 540) CHOLESTEROL ([facility]) (test code = 106 mg/dL 631) HDL CHOLESTEROL ([facility]) (test code 24 mg/dL = 976) LDL CHOLESTEROL CALCULATED ([facility]) 58 mg/dL (test code = 633) Triglyceride Reference Range: Low Risk <150 Borderline 150-199 High Risk 200-499 Very High Risk >=500Cholesterol Reference Range: Low Risk <200 Borderline 200-239 High Risk >240HDL Cholesterol Reference Range: Low Risk >=60 High Risk <40LDL Cholesterol Reference Range: Optimal <100 Near Optimal 100-129 Borderline 130-159 High 160-189 Very High >=190 [employer] Worker DOROTA VARGHESEOCT-GLUCOSE [id number] 11:12:00 Test Item Value Reference Range Interpretation Comments POC-GLUCOSE METER 106 mg/dL 70-110 : TESTED A T [facility] [address] ([facility]) (test code = [place], 1538) [address]: [employer] Worker/Techni sandi ID = [id number] for MAL HEIDIJOSEPHRENAE B-type Natriuretic Factor (BNP)2020-09-27 09:54:00 Test Item Value Reference Range Interpretation Comments BNP (test code = 86820-0) 4553 pg/mL 0-100 H SID (test code = SID) [employer] Worker ID - [id number] Lab Interpretation (test Abnormal code = 15838-5) [facility] CenterB-TYPE NATRIURETIC FACTOR (BNP)2020-09-27 09:54:00 Test Item Value Reference Range Interpretation Comments B-TYPE NATRIURETIC PEPTIDE 4553 pg/mL 0-100 H (BEAKER) (test code = 700) [employer] Worker ID - [id number]-HODBGNU [id number] 08:28:00 Test Item Value Reference Range Interpretation Comments POC-GLUCOSE METER 113 mg/dL 70-110 H : [facility] (BEAKER) (test code = [place], 1538) [address]: [employer] Worker/Techni sandi ID = [id number] for NORA FARRELL [id number] 06:53:00 Test Item Value Reference Range Interpretation Comments PHOSPHORUS (BEAKER) (test code = 10.2 mg/dL 2.3-4.7 HH 604) [employer] Worker ID - YULIANA MTROPONIN [id number] 06:47:00 Test Item Value Reference Range Interpretation [...] failure, acidosis, acute neurological disease, and persistent tachyarrhythmia.[employer] Worker ID - YULIANA MBASIC METABOLIC [id number] 06:40:00 Test Item Value Reference Range Interpretation [...] S NOT APPLICABLE FOR DIALYSIS PATIEN TS. [employer] Worker ID - YULIANA HKULVNWRUP4806-91-01 05:56:00 Test Item Value Reference Range Interpretation Comments MAGNESIUM (BEAKER) (test code = 2.7 mg/dL 1.6-2.6 H 627) [employer] Worker ID - YULIANA [id number] 05:33:00 Test Item Value Reference Range Interpretation Comments PARTIAL THROMBOPLASTIN TIME 53.3 seconds 22.5-36.0 H (BEAKER) (test code = 760) PROTHROMBIN TIME/[id number] 05:32:00 Test Item Value Reference Range Interpretation [...] = 413) RAD, CHEST, 1 VIEW, NON [id number] 05:12:00Reason for exam:- >HypoxiaShould this be performed at the bedside?->Yes [facility] : 1945 Sex: MFINAL REPORT [...] by technique. Intact osseous structures. Signed: Smith Corona MDReport Verified Date/Time: 09/27/2020 05:12:42 POCT-GLUCOSE [id number] 21:55:00 Test Item Value Reference Range Interpretation Comments POC-GLUCOSE METER 124 mg/dL 70-110 H : TESTED A T [facility] [address] (BEAKER) (test code = [place], 1538) [address]: [employer] Worker/Techni sandi ID = [id number] for Moe Aiken [id number] 21:29:00 Test Item Value Reference Range Interpretation Comments PARTIAL THROMBOPLASTIN TIME 43.8 seconds 22.5-36.0 H (BEAKER) (test code = 760) Prior to initiating unhwypyQUUZHYTTYU0549-50-69 21:28:00 Test Item Value Reference Range Interpretation Comments PHOSPHORUS (BEAKER) (test code = 9.7 mg/dL 2.3-4.7 HH 604) [employer] Worker ID - DBComprehensive metabolic [id number] 21:27:00 Test Item Value Reference Range Interpretation Comments Protein, Total (test 7.4 See_Comment [Autom ated code = 2885-2) message] The system which generated this result transmit duane reference range : 6.0 - 8.3 gm/dL . The reference range was not u sed to interpret th is result as normal/abnormal . Albumin (test code = 3.5 g/dL 3.5-5 22089-0) Alkaline Phosphatase 61 U/L 40-150 (test code = 6768-6) Total Bilirubin (test 1.1 mg/dL 0.2-1.2 code = 1975-2) Sodium (test code = 137 meq/L 067-282 0219-2) Potassium (test code 5.4 meq/L 3.5-5.1 H = 2823-3) Chloride (test code = 100 meq/L 98-107 2075-0) CO2 (test code = 18 meq/L 22-29 L 8-9) BUN (test code = 81 mg/dL 7-21 H 3094-0) Creatinine (test code 11.31 mg/dL 0.57-1.25 H = 2160-0) Glucose (test code = 133 mg/dL 70-105 H 2345-7) Calcium (test code = 9.9 mg/dL 8.4-10.2 49503-6) AST (test code = 18 U/L 5-34 1920-8) ALT (test code = 20 U/L 6-55 1742-6) EGFR (test code = 4 mL/min/1.73 [place] [address]-7) NOT ACCURATE CREATININE CLEARANCE IN PREDICTING GLOMERULAR FILTRATION RATE . ESTIMATED GFR I S NOT APPLICABLE FOR DIALYSIS PATIEN TS. SID (test code = SID) [employer] Worker ID - DB Lab Interpretation Abnormal (test code = 84168-0) [facility] CenterCOMPREHENSIVE METABOLIC [id number] 21:27:00 Test Item Value Reference Range Interpretation [...] S NOT APPLICABLE FOR DIALYSIS PATIEN TS. [employer] Worker ID - [id number] 21:24:00 Test Item Value Reference Range Interpretation Comments MAGNESIUM (BEAKER) (test code = 2.6 mg/dL 1.6-2.6 627) [employer] Worker ID - DBCBC W/PLT COUNT & AUTO VWLTPYEHPNMW4041-24-98 21:10:00 Test Item Value Reference Range Interpretation [...] PERCENT (BEAKER) (test code = 2801) POCT-GLUCOSE [id number] 18:17:00 Test Item Value Reference Range Interpretation Comments POC-GLUCOSE METER 112 mg/dL 70-110 H : TESTED A T [facility] 67[address] (TAY) (test code [facility], = 1538) [address]: [employer] Worker/Techni sandi ID = [id number] for NADIAIM Barbara SARAVIA, CYNTHIA KRJ-ILQPUTQ7851-28-14 00:00:00Ordered by an unspecified provider.[facility] CenterUR[facility] [id number] 03:02:00Yellow *NA*(09/02/19 9:02 PM) [facility] [id number] 03:02:00Slight *ABN*(09/02/19 9:02 PM) [facility] [id number] 03:02:00 Test Item Value Reference Range Interpretation Comments UA Spec Grav (test code = UA Spec 1.011 1 Grav) [facility] [id number] 03:02:00 Test Item Value Reference Range Interpretation Comments UA pH (test code = UA pH) 8.0 1 5.0-8.0 [facility] PHKXA7705-45-14 03:02:00Negative *NA*(09/02/19 9:02 PM)[facility] IZNVQ1940-12-66 03:02:00Negative *NA*(09/02/19 9:02 PM)[facility] ZJEBI6007-64-85 03:02:00Small *ABN*(09/02/19 9:02 PM)[facility] GWVUO5941-98-45 03:02:00Negative (09/02/19 9:02 PM) [facility] ZQMPN7493-13-50 03:02:00Moderate *ABN*(09/02/19 9:02 PM)[facility] OJHGX3261-68-75 03:02:00None Seen (09/02/19 9:02 PM)[facility] AGIAZ2402-46-63 03:02:19602Cjjmzasr [facility]annURINE AND JGKUS1131-92-53 03:02:0010[facility]annCHEM NUNPM2611-11-35 11:49:002.5 [facility]annCHEM ALDCC9008-26-93 11:49:006.1[facility]annELECTROLYTES 2018-11-25 11:49:0013.9[facility] JgumaxdIJIMJSUPVYZR8815-29-33 11:49:007[facility] OsovdadGNZGXHCPXDXU7489-38-99 11:49:003.9[facility] IszlbfrDJVIRKJQRGQH6594-66-27 11:49:009.4[facility] XxbbrscZDFSJRNDJACZ2366-98-97 11:49:0098[facility] OJRULWSKJBON7066-84-68 11:49:24647Ykougdac QkiguddOFDKMTHURAIE6939-17-23 11:49:0029[facility] ZpwiymjKNJIGSIPLUZO5840-76-15 11:49:64688Takxrtle [facility] UZBAAMINYAEO8177-64-99 11:49:006.85[facility] SjjymjzHTKXNRCSJUMJ9717-63-78 11:49:0050[facility] XkigfghRMXPQNVLIH1115-55-37 11:49:00 Test Item Value Reference Range Interpretation Comments PTT (test code = PTT) 61.4 s 22.9-35.8 [facility] AvknvokZYNTURVOHJ8234-83-12 11:49:00 Test Item Value Reference Range Interpretation Comments INR (test code = INR) 2.69 1 0.85-1.17 [facility] ZdakjudMJXEFWUXHD8572-06-97 11:49:00 Test Item Value Reference Range Interpretation Comments PT (test code = PT) 28.0 s 12.0-14.7 [facility] GyisfbhAEGCNNPXBP5046-33-32 11:49:000.1[facility]annHEMATOLOGY 2018-11-25 11:49:000.7[facility] XjajehcKLGALNCMTU3854-44-55 11:49:000.9[facility] HcwtgokXGCTYRZMRZ8603-43-00 11:49:001.9[facility] RvfmtkpUUYVFZPSFW0740-79-21 11:49:007.3[facility] JlmnqztZMZFVWQICZ4023-07-62 11:49:006.0[facility] SUFHWTGLAU2963-04-49 11:49:008.5[facility] IaiabgmHWNXNCHGMH7406-27-16 11:49:000.8 [facility] MwwqubySOEOAZOIAE2821-64-50 11:49:0067.0[facility]annHEMATOLOGY 2018-11-25 11:49:0017.7[facility] HsekznzDENPWMPPGD9251-43-73 11:49:0011.0[facility] QkticgvHXZQPFVTVE7531-85-16 11:49:002.69[facility] BgnyglnJVOFXAOUCV3487-58-74 11:49:0025.0[facility] JiexljjQHBKZVEGIZ0267-99-77 11:49:008.4[facility] EQFIBTIMON5002-00-32 11:49:00 Test Item Value Reference Range Interpretation Comments MCH (test code = MCH) 31.4 pg 27.0-31.0 [facility] UlbhldeYYSKASBCES6570-04-74 11:49:0093.0[facility]annHEMATOLOGY 2018-11-25 11:49:009.2[facility] GzvwkxwWUQTEEDBYL1852-76-24 11:49:90182Lgxtkini CyskuroEFAZFCAERD1049-50-37 11:49:0015.4[facility] MaeapyzZNNSBHCHKU6832-13-47 11:49:0033.7[facility] HermannCHEM VAFLM6373-83-13 10:46:006.7[facility]annCHEM NGGQW6828-72-09 10:46:002.6[facility]annCHEM AKRSD2610-23-03 10:46:006 [facility]annCHEM CFLFT6027-81-87 10:46:0028[facility]annCHEM PANEL 2018-11-24 10:46:009.6[facility] HermannCHEM DBMDM4190-21-93 10:46:0057[facility]annCHEM THXBA7030-34-00 10:46:007.59[facility]annCHEM CMFLM9089-81-22 10:46:52879Mmxmpjbp HermannCHEM UMIHL4255-68-42 10:46:005.3[facility] HermannCHEM WFNDU4118-12-81 10:46:0098[facility]annCHEM WFUKG4118-54-82 10:46:76733 [facility]annCHEM SNLDB1917-30-18 10:46:0015.3[facility]annHEMATOLOGY 2018-11-24 10:46:002.3[facility] IvzvzqmMJNAZLPDQM0446-26-37 10:46:007.0[facility] QxxnpnbMDYLAPGSQQ0032-30-08 10:46:005.7[facility] NsvoharWSLMUUPXKV6287-89-35 10:46:000.9[facility] FhpvjmwIEBEJIHDSE7686-46-18 10:46:000.1[facility] ZURJJPVCXQ7002-32-11 10:46:000.7[facility] WlqvkszFUIETZUPWR8860-12-81 10:46:00 23.6[facility] QuxsjclRTNRJEMPGH8803-25-20 10:46:0059.3[facility]annHEMATOLOGY 2018-11-24 10:46:009.2[facility] HcqvnfqDQUZWUZRPO2624-00-99 10:46:000.9[facility] OfirxtoIPCUWHESKV3861-32-25 10:46:0093.1[facility] VlwjotqZRTMCRSCNG5913-32-68 10:46:0034.3[facility] StwcxqiOPEVMBUMEY2297-45-87 10:46:0015.5[facility] [place] [place] QFNUCJOAMJ8825-41-76 10:46:69700Sfrdqkhk XaoimgyDLNICCTAKL7067-71-23 10:46:009.7 [facility] DfqphseUCFVPLTKLB9217-07-14 10:46:00 Test Item Value Reference Range Interpretation Comments MCH (test code = MCH) 32.0 pg 27.0-31.0 [facility] DrizpiwUYTAWXIGQE8918-71-74 10:46:002.72[facility]annHEMATOLOGY 2018-11-24 10:46:008.7[facility] YqvdinjDXNUHUJMRV7942-49-66 10:46:0025.3[facility] PqkreuoZLCGOKONZW1931-55-90 10:46:009.8[facility] OxjjjpsYNTGNVQNRJ3029-24-57 10:46:00 Test Item Value Reference Range Interpretation Comments INR (test code = INR) 2.31 1 0.85-1.17 [facility] EagfvjkOLGMOHYIWG6379-03-16 10:46:00 Test Item Value Reference Range Interpretation Comments PTT (test code = PTT) 79.5 s 22.9-35.8 [facility] SxrlqgpGTKMCWDANJ6391-27-89 10:46:00 Test Item Value Reference Range Interpretation Comments PT (test code = PT) 24.9 s 12.0-14.7 [facility]annCHEM FXWOV8629-12-18 09:40:009[facility]annCHEM PANEL 2018-11-23 09:40:0039[facility] HermannCHEM EMUOS2902-06-73 09:40:005.64[facility]annCHEM GONQF4878-20-45 09:40:82342Eotfhnwf HermannCHEM IDLIP5402-55-92 09:40:65877Voqbiget HermannCHEM RZLPC0207-82-53 09:40:009.4[facility]annCHEM PXPPW7437-00-64 09:40:90845Rsbkeijw HermannCHEM JAIIO4210-58-22 09:40:0013.7 [facility]annCHEM MEYYH9603-31-31 09:40:003.7[facility]annCHEM PANEL 2018-11-23 09:40:0030[facility] MpeganmEHOUNOLURA6231-15-61 09:40:0093.6[facility] KgtrfijUWTDIFNHRM6212-56-39 09:40:0025.3[facility] JcerwdhSSNMYQOKAI3721-49-28 09:40:0034.7[facility] PfbepnpJUAFVHPVUF6018-44-85 09:40:0015.7[facility] PIWDSAUIRT0404-26-37 09:40:28483Ujfylwen GuymmxzTIYULSXNGP4934-75-64 09:40:00 Test Item Value Reference Range Interpretation Comments MCH (test code = MCH) 32.5 pg 27.0-31.0 [facility] LzcbpbtRZYLHFVLUI8955-42-68 09:40:002.70[facility]annHEMATOLOGY 2018-11-23 09:40:008.8[facility] KzyjeasSANSDASWBS9038-22-67 09:40:009.8[facility] XtabwjeNDUDLFDBEP6406-86-77 09:40:007.8[facility] FimvbwvCDQSHFMECM6880-57-72 09:40:00 Test Item Value Reference Range Interpretation Comments INR (test code = INR) 1.62 1 0.85-1.17 [facility] NzebpcpUSRPLVIUYP3200-26-21 09:40:00 Test Item Value Reference Range Interpretation Comments PTT (test code = PTT) 77.2 s 22.9-35.8 [facility] TauieepEFPRHMZGWG1958-39-75 09:40:00 Test Item Value Reference Range Interpretation Comments PT (test code = PT) 18.9 s 12.0-14.7 [facility] DzoigbuOHTQKCQYHQ9105-24-95 09:40:000.7[facility]annHEMATOLOGY 2018-11-23 09:40:000.6[facility] IlczjkfSJYRGBOSQY9328-75-34 09:40:000.1[facility] MmvehzdNEBBDBQVNG4177-83-36 09:40:001.7[facility] OpwgzfsEWWVHJTXPD8719-28-67 09:40:0060.5[facility] FqotwugPQMYUAHCJT6672-83-67 09:40:0021.3[facility] GKXYQHWBPP3062-64-63 09:40:004.7[facility] CcbdweyHGQLCBQRGC4792-50-15 09:40:001.0 [facility] LbmgufcBTQVEDTEOJ8606-33-03 09:40:007.9[facility] HermannHEMATOLOGY 2018-11-23 09:40:009.3[facility] HermannCHEM QCNDR3714-74-25 10:20:007.6[facility] HermannCHEM SURTW9347-74-22 10:20:002.5[facility] HermannPARATHYROID PROFILE 2018-11-22 10:20:001.15[facility] HermannPARATHYROID FJSZZQR1264-14-69 10:20:00 1.18[facility] HermannPARATHYROID UFAGJXJ5288-77-33 09:49:001.13[facility] PARATHYROID FVLKEZK5688-38-41 09:49:001.12[facility] HermannBACTERIAL - SEROLOGY 2018-11-19 09:06:00Negative (11/19/18 3:06 AM)[facility] HermannPARATHYROID PROFILE 2018-11-19 09:06:001.11[facility] HermannPARATHYROID LSXUETF9598-73-36 09:06:00 1.10[facility] SsxfjwgYSENMQNIYJ6896-15-75 11:43:00Negative *NA*(11/18/18 5:43 AM) [facility] UjpbuzvJLSBVKYWTN7646-04-03 11:43:0066.7[facility] HermannIMMUNOLOGY 2018-11-18 11:43:00Negative *NA*(11/18/18 5:43 AM)[facility] HermannIMMUNOLOGY 2018-11-18 11:43:00Negative *NA*(11/18/18 5:43 AM)[facility] HermannIMMUNOLOGY 2018-11-18 11:43:00Negative *NA*(11/18/18 5:43 AM)[facility]annBLOOD BANK JLIMIDI0672-14-08 16:45:00Product available (11/17/18 10:45 AM)[facility] BLOOD BANK IVFBCNC4378-27-84 16:45:00Product available (11/17/18 10:45 AM)[facility]annBLOOD BANK SCIREYV3351-49-83 16:45:00Product available (11/17/18 10:45 AM) [facility]BL[facility]OD BANK UTXOSRY2682-30-26 20:06:00Negative (11/14/18 2:06 PM) [facility]annCHEM QEAVO3822-14-34 16:45:003.9[facility]annCHEM PANEL 2018-11-14 16:45:00 Test Item Value Reference Range Interpretation Comments A/G Ratio (test code = A/G Ratio) 0.9 1 0.7-1.6 [facility]annCHEM JEYOV0524-67-18 16:45:000.1[facility]annCHEM PANEL 2018-11-14 16:45:000.4[facility] HermannCHEM GVBUQ7392-98-44 16:45:0091[facility] HermannCHEM SXMHZ8531-94-14 16:45:000.5[facility] HermannCHEM SLUSE9266-54-09 16:45:003.6[facility] HermannCHEM YYGTV1128-39-03 16:45:0021[facility] HermannCHEM JSZQO9459-43-37 16:45:0012[facility] HermannCHEM DRXYL6725-83-58 16:45:007.5 [facility]annSPECIAL HGHGUDPNJ3860-24-86 16:45:006.8[facility] [place] SICOPGADQY5032-47-40 17:07:44281Jlxllpms YubmgzbMLUFFBVKYX7499-97-15 15:00:83601 [facility] AuxvrfxQHNRTILBDTHO3203-16-91 19:27:19334Gjoauwqd HermannELECTROLYTES 2015-08-29 19:27:20337Wbjogeqx EkevgoxCWFMUCIMPQCI2839-64-49 19:27:003.6[facility] RnzhapdIDHKKSXKWWGU6567-82-23 19:27:004.21[facility] WzbudniUPMTFXSCIIHB2640-00-89 19:27:0027[facility] XjryafuBPVYJTAIQAFU5425-39-05 19:27:0010.6[facility] RDJPQYHFWOUS6301-17-75 19:27:009.0[facility] SlbbqaeTJFWILXXREUA4186-73-72 19:27:0047[facility] UxshshqFXTFKQFBCIBX8678-04-65 19:27:60998Wxvufvwf [facility] PUVMLZGUGMEA0929-44-32 19:27:0013[facility] HermannCHEM KJQTI9961-63-92 17:05:0024 [facility]annCHEM OWVDB2454-87-43 17:05:01850Zrkjptli HermannCHEM PANEL 2014-11-01 17:05:0028[facility] HermannCHEM WQDND3135-50-62 17:05:009.1[facility] HermannCHEM GZOAW9050-66-54 17:05:23330Shrqcvkd HermannCHEM OTSTY9154-75-07 17:05:77527Mieubwzb HermannCHEM LKHLZ1017-87-12 17:05:002.6[facility] HermannCHEM QKKKO3730-01-02 17:05:004.2[facility] HermannCHEM NYFBP3973-29-44 17:05:0023 [facility]annCHEM REQIR8223-20-66 17:05:0011.2[facility]annHEMATOLOGY 2014-11-01 17:05:02984Lrxquykw HrrylhkWYJAFKDACR9330-19-39 17:05:009.5[facility] VooqkksNJYCZMFRMA3137-39-97 17:05:004.89[facility] QvxapbdLQXQIRUSKY9739-08-29 17:05:0014.3[facility] TfyzbwlNMBORAWTGT5391-34-36 17:05:0010.6[facility] HOOXPXZMLB7407-85-66 17:05:0012.7[facility] AglusyhYVCQYJWIVL9774-04-30 17:05:00 33.1[facility] MrkkaoyPAGTDUGYUW6608-71-02 17:05:0043.3[facility] HermannHEMATOLOGY 2014-11-01 17:05:0088.6[facility] JcghnvkSZIUBBKXCU9603-82-77 17:05:00 Test Item Value Reference Range Interpretation Comments MCH (test code = MCH) 29.3 pg 27.0-31.0 [facility] GtptlerILLPQEAEAM1863-17-90 17:05:007.7[facility] HermannHEMATOLOGY 2014-11-01 17:05:000.0[facility] NkrfaegYZUGPYGLLP4335-62-80 17:05:000.5[facility] CxjfoohBTKUPZJEKG5163-18-77 17:05:000.2[facility] KrcemrrILVDJSRYNR0703-53-15 17:05:002.3[facility] VwmjaxmYAGQVFUFHQ2781-63-24 17:05:0072.1[facility] [place] YRWMZLNCFY9237-48-38 17:05:0021.4[facility] OwaigiqZDKZBJKWAI9908-09-21 17:05:00 4.5[facility] DcbsxenJCEGSJBMPF3043-22-04 17:05:000.3[facility] HermannHEMATOLOGY 2014-11-01 17:05:001.7[facility] HermannSPECIAL XBQUFFVRQ5664-73-01 17:05:007.1 [facility] [place]
--- NOTE | 2021-01-02 14:12 | ER ---
Nurse's Notes [facility] Name: John Paul Morales Age: 75 yrs Sex: Male : 1945 Arrival Date: 01/02/2021 Time: 13:09 Bed 24 Private MD: Diagnosis: Pain in right lower leg Presentation: 01/02 13:33 Chief complaint: Patient states: States he only got 1 hour of dialysis today because ll1 his RLE was hurting so bad they couldn't finish. Has wound/sore to RLE that his doctor and wound care are taking care of. Coronavirus screen: Client denies travel out of the [place] in the last 14 days. At this time, the client does not indicate any symptoms associated with coronavirus-19. Ebola Screen: Patient denies travel to an Ebola-affected area in the 21 days before illness onset. Initial Sepsis Screen: Does the patient meet any 2 criteria? No. Patient's initial sepsis screen is negative. Does the patient have a suspected source of infection? Yes: Skin breakdown/wound. Risk Assessment: Do you want to hurt yourself or someone else? Patient reports no desire to harm self or others. Onset of symptoms was January 02, 2021. 13:33 Method Of Arrival: Wheelchair ll1 13:33 Acuity: URSULA 3 ll1 Historical: - Allergies: 13:37 No Known Allergies; ll1 - Home Meds: 13:37 amlodipine 10 mg tab 1 tab once daily [Active]; ll1 - PMHx: 13:37 Dialysis; MWF; ESRD; High Cholesterol; Hypertension; Myocardial infarction; ll1 - PSHx: 13:37 MITRAL VALVE REPLACEMENT; quadruple bypass; ll1 - Immunization history:: Flu vaccine is up to date. - Social history:: Smoking status: Patient denies any tobacco usage or history of. - Family history:: not pertinent. - Hospitalizations: : No recent hospitalization is reported. Screenin:56 Abuse screen: Denies threats or abuse. Nutritional screening: No deficits noted. vg1 Tuberculosis screening: No symptoms or risk factors identified. Fall Risk No fall in past 12 months (0 pts). No secondary diagnosis (0 pts). IV access (20 points). Ambulatory Aid- None/Bed Rest/Nurse Assist (0 pts). Gait- Normal/Bed Rest/Wheelchair (0 pts) Mental Status- Oriented to own ability (0 pts). Total Snow Fall Scale indicates No Risk (0-24 pts). Assessment: 13:54 General: Appears in no apparent distress. uncomfortable, Behavior is calm, cooperative. vg1 Pain: Complains of pain in right foot Pain currently is 10 out of 10 on a pain scale. Quality of pain is described as burning. Neuro: Level of Consciousness is awake, alert, obeys commands, Oriented to person, place, time, situation. Cardiovascular: Patient's skin is warm and dry. Respiratory: Airway is patent Respiratory effort is even, unlabored. GI: No signs and/or symptoms were reported involving the gastrointestinal system. : No signs and/or symptoms were reported regarding the genitourinary system. EENT: No signs and/or symptoms were reported regarding the EENT system. Derm: Wound noted heel of right foot. Musculoskeletal: Swelling DAVID lower extremities. Vital Signs: 13:33 BP 151 / 53; Pulse 65; Resp 17; Temp 98.4; Pulse Ox 100% ; Weight 99.79 kg; Height 6 ll1 ft. 1 in. (185.42 cm); Pain 10/10; 13:56 BP 153 / 53; Pulse 63; Resp 18; Pulse Ox 95% on R/A; vg1 13:33 Body Mass Index 29.03 (99.79 kg, 185.42 cm) ll1 ED Course: 13:09 Patient arrived in ED. mr 13:35 Triage completed. ll1 13:37 Arm band placed on. ll1 13:41 Juancarlos Morris MD is Attending Physician. rn 13:46 Alexandria Mobley RN is Primary Nurse. vg1 13:56 Patient has correct armband on for positive identification. Bed in low position. Call vg1 light in reach. Side rails up X2. 14:10 Inserted saline lock: 22 gauge in right antecubital area, using aseptic technique. vg1 14:33 No provider procedures requiring assistance completed. IV discontinued, intact, vg1 bleeding controlled, No redness/swelling at site. Pressure dressing applied. Administered Medications: 14:14 Drug: morphine 4 mg Route: IVP; Site: right antecubital; vg1 14:34 Follow up: Response: No adverse reaction vg1 14:14 Drug: Lasix 40 mg Route: IVP; Site: right antecubital; vg1 14:34 Follow up: Response: No adverse reaction vg1 Outcome: 14:11 Discharge ordered by . rn 14:33 Discharged to home via wheelchair. vg1 14:33 Condition: good 14:33 Discharge instructions given to patient, Instructed on discharge instructions, follow up and referral plans. medication usage, Demonstrated understanding of instructions, follow-up care, medications, Prescriptions given X 1. 14:33 Patient left the ED. vg1 Signatures: Deborah Sanches Roman, MD MD rn Garcia, Alexandria RN RN vg1 Bryant Tellez RN RN ll1
--- NOTE | 2021-01-02 14:12 | EDPHYS ---
Physician Documentation [facility] Name: John Paul Morales Age: 75 yrs Sex: Male : 1945 Arrival Date: 01/02/2021 Time: 13:09 Bed 24 Private MD: ED Physician Juancarlos Morris HPI: 01/02 14:02 This 75 yrs old Male presents to ER via Wheelchair with complaints of Leg rn Swelling, Leg Pain, Dialysis. 14:02 The patient presents with pain, that is chronic. The complaints affect the right alcazar, rn anterior aspect of right ankle and dorsum of right foot. 14:06 Onset: The symptoms/episode began/occurred 1 month(s) ago. Modifying factors: The rn symptoms are alleviated by nothing. the symptoms are aggravated by dialysis. Severity of symptoms: At their worst the symptoms were moderate, in the emergency department the symptoms have improved. The patient has experienced similar episodes in the past. Reports has been having pain in his right leg for about a month now, seeing his doctor and wound care, reports each time has dialysis, the affected leg throbs and hard to complete dialysis, only hurts like that during and after dialysis. Today only completed about an hour of dialysis because of the pain. Came here for pain medication and for dialysis after pain medication. States wounds improving, afebrile, just seen by wound care per patient. . Historical: - Allergies: 13:37 No Known Allergies; ll1 - Home Meds: 13:37 amlodipine 10 mg tab 1 tab once daily [Active]; ll1 - PMHx: 13:37 Dialysis; MWF; ESRD; High Cholesterol; Hypertension; Myocardial infarction; ll1 - PSHx: 13:37 MITRAL VALVE REPLACEMENT; quadruple bypass; ll1 - Immunization history:: Flu vaccine is up to date. - Social history:: Smoking status: Patient denies any tobacco usage or history of. - Family history:: not pertinent. - Hospitalizations: : No recent hospitalization is reported. ROS: 14:06 Constitutional: Negative for fever, chills, and weight loss, Eyes: Negative for injury, rn pain, redness, and discharge, Neck: Negative for injury, pain, and swelling, Cardiovascular: Negative for chest pain, palpitations Respiratory: Negative for shortness of breath, cough, wheezing, and pleuritic chest pain, Abdomen/GI: Negative for abdominal pain, nausea, vomiting, diarrhea, and constipation, MS/Extremity: + chronic right leg pain Skin: Negative for injury, rash, and discoloration, Neuro: Negative for headache, weakness, numbness, tingling, and seizure. 14:06 All other systems are negative. Exam: 14:06 Constitutional: This is a well developed, well nourished patient who is awake, alert, rn and in no acute distress. Head/Face: Normocephalic, atraumatic. Cardiovascular: Regular rate and rhythm. Respiratory: Speaking full sentences. No increased work of breathing, no retractions or nasal flaring. MS/ Extremity: Pulses diminished bilaterally but equal, no cyanosis. Neurovascular intact. Full, normal range of motion. + chronic wounds to RLE without purulence or foul smell, no surrounding erythema. No abscess or fluctuance. Vital Signs: 13:33 BP 151 / 53; Pulse 65; Resp 17; Temp 98.4; Pulse Ox 100% ; Weight 99.79 kg; Height 6 ll1 ft. 1 in. (185.42 cm); Pain 10/10; 13:56 BP 153 / 53; Pulse 63; Resp 18; Pulse Ox 95% on R/A; vg1 13:33 Body Mass Index 29.03 (99.79 kg, 185.42 cm) ll1 MDM: 13:41 Patient medically screened. rn 14:06 Differential diagnosis: neuropathic pain, chronic pain, arterial insufficiency, venous rn insufficiency, claudication. Data reviewed: vital signs, nurses notes, and as a result, I will discharge patient. Counseling: I had a detailed discussion with the patient and/or guardian regarding: the historical points, exam findings, and any diagnostic results supporting the discharge/admit diagnosis, the need for outpatient follow up, to return to the emergency department if symptoms worsen or persist or if there are any questions or concerns that arise at home. Special discussion: I discussed with the patient/guardian in detail that at this point there is no indication for admission to the hospital. It is understood, however, that if the symptoms persist or worsen the patient needs to return immediately for re-evaluation. ED course: Pt requests pain medication, and after telling him dialysis in ER not possible, would have to be admitted, patient upset and declines, wants to go home. . 01/02 13:58 Order name: IV Start; Complete Time: 14:15 rn Administered Medications: 14:14 Drug: morphine 4 mg Route: IVP; Site: right antecubital; vg1 14:34 Follow up: Response: No adverse reaction vg1 14:14 Drug: Lasix 40 mg Route: IVP; Site: right antecubital; vg1 14:34 Follow up: Response: No adverse reaction vg1 Disposition: 01/02/21 14:11 Discharged to Home. Impression: Pain in right lower leg. - Condition is Stable. - Discharge Instructions: Musculoskeletal Pain. - Prescriptions for Tylenol- Codeine #3 300-30 mg Oral Tablet - take 1 tablet by ORAL route every 4-6 hours As needed; 15 tablet. - Medication Reconciliation Form, Thank You Letter, Antibiotic Education, Prescription Opioid Use form. - Follow up: Private Physician; When: As needed; Reason: Recheck today's complaints, Re-evaluation by your physician. - Problem is chronic. - Symptoms have improved. Signatures: Juancarlos Morris MD MD rn Garcia, Victoria, RN RN 1 Bryant Tellez RN RN [facility] Corrections: (The following items were deleted from the chart) 14:33 14:11 01/02/2021 14:11 Discharged to Home. Impression: Pain in right lower leg. vg1 Condition is Stable. Forms are Medication Reconciliation Form, Thank You Letter, Antibiotic Education, Prescription Opioid Use. Follow up: Private Physician; When: As needed; Reason: Recheck today's complaints, Re-evaluation by your physician. Problem is chronic. Symptoms have improved. rn
[2021-01-02] MEDS ORDERED: MORPHINE 4 MG/ML SYR ONE (14:19)
[2021-01-02] MEDS ORDERED: FUROSEMIDE 40 MG/4 ML VIAL ONE (14:19)
[2021-01-02 14:38] VITALS: TEMP 98.4
[2021-01-02 14:39] VITALS: BP 153/53; O2SAT 95
== END 2021-01-02 14:33 | disposition home or self-care (01) ==
LOC: ER 13:05
DX: M79.661 Pain in right lower leg (principal); N18.6 End stage renal disease; Z99.2 Dependence on renal dialysis; I10 Essential (primary) hypertension; I25.2 Old myocardial infarction; E78.00 Pure hypercholesterolemia, unspecified
CPT/HCPCS: 96374; 96375; 99283; J1940